=== PATIENT | female | born 1970 | race Caucasian/White ===

== ENCOUNTER → 2018-07-31 | Outpatient (CLI) | payer SELFPAY | LOC: WOUNDCARE 09:18 | PROVIDERS: ATTEND Surgery | DX: T25.332A Burn of third degree of left toe(s) (nail), initial encounter (principal); T25.331A Burn of third degree of right toe(s) (nail), initial encounter; T25.222A Burn of second degree of left foot, initial encounter; E11.621 Type 2 diabetes mellitus with foot ulcer; E11.42 Type 2 diabetes mellitus with diabetic 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; E11.65 Type 2 diabetes mellitus with hyperglycemia | CPT/HCPCS: 16020 ==

== ENCOUNTER → 2018-08-05 | Outpatient (CLI) | payer SELFPAY | LOC: WOUNDCARE 13:45 | PROVIDERS: ATTEND Surgery | DX: T25.332A Burn of third degree of left toe(s) (nail), initial encounter (principal); T25.331A Burn of third degree of right toe(s) (nail), initial encounter; T25.222A Burn of second degree of left foot, initial encounter; E11.621 Type 2 diabetes mellitus with foot ulcer; E11.42 Type 2 diabetes mellitus with diabetic 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; E11.65 Type 2 diabetes mellitus with hyperglycemia | CPT/HCPCS: 16020; 87070; 87075; 87205 ==

== ENCOUNTER → 2018-08-12 | Outpatient (CLI) | payer OTHER ==
[~2018-08-12] MED LIST: ACET-2267 PO; ATOR20TA49 PO; CETI10CA PO; CITA40TA19 PO; CYCL10TA9 PO; DOXY100T2 PO; DOXY20TA5 PO; GABA-486 PO; GABA600T2 PO; INSU100I23 SQ; INSU100I29 SQ; INSU100V5 SQ; LINE600T5 PO; LISI-552 PO; LISI2.5T; LORA2TAB; METO-310 PO; METO-333; METO-387 PO; PAMI30VI8 SQ; RT-ALBUINH IH; SILV20CR14 TP
== END ==
LOC: WOUNDCARE 12:56
PROVIDERS: ATTEND Surgery
DX: T25.332A Burn of third degree of left toe(s) (nail), initial encounter (principal); T25.331A Burn of third degree of right toe(s) (nail), initial encounter; T25.222A Burn of second degree of left foot, initial encounter; E11.621 Type 2 diabetes mellitus with foot ulcer; E11.42 Type 2 diabetes mellitus with diabetic 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; E11.65 Type 2 diabetes mellitus with hyperglycemia
CPT/HCPCS: 16020

== ENCOUNTER 2018-08-17 23:42 | Inpatient (IN) | payer OTHER ==
[~2018-08-17] VITALS: Ht 165.1 cm; Wt 100.4 kg
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
--- OUTSIDE RECORDS SUMMARY | 2018-08-17 23:52 | XMS REPORT ---
Author Author ALVA BENTLEY [facility] [address] Address [address] [place] [address] Care Team Providers Care Director [employer] Name Role Phone ALVA BENTLEY Unavailable PROBLEMS Type Condition ICD9-CM Code WSY31-UT Code Onset Dates Condition Status SNOMED Code Problem Anxiety state, unspecified F41.1 Active 589391039 Problem Migraine without status migrainosus, not intractable, unspecified migraine type G43.909 Active 24447516 Problem Depressive disorder, not elsewhere classified F32.9 Active 63941465 Problem group home current use of insulin Z79.4 Active 371985050 Problem Type 2 diabetes 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 Active 06587139 Problem Mild intermittent asthma without complication J45.20 Active 621843913 Problem Essential hypertension I10 Active 54886175 Problem Mixed hyperlipidemia E78.2 Active 817301903 Problem Hospital discharge follow-up Z09 Active 875508291 Problem Local infection of the skin and subcutaneous tissue, unspecified L08.9 Active 916032125 Problem Unspecified staphylococcus as the cause of diseases classified elsewhere B95.8 Active 39722371 Problem Chronic kidney disease, unspecified CKD stage N18.9 Active 195975833 Problem Lumbar radiculopathy, chronic M54.16 Active 910626400 ALLERGIES No Information ENCOUNTERS Encounter Location Date Diagnosis [facility] [address] [id number] [address] Jul, [facility] [address] [id number] [address] Jul, Type 2 diabetes 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 [facility] [address] [id number], [place] [address] 379[address] Jun, [facility] [address] [id number] [address] 1188 May, [facility] [id number] [place] [address] 48537- 4601 May, [facility] [id number] [place] [address] 00584- 2562 May, [facility] [id number] [place] [address] 25521- 2520 May, Mixed hyperlipidemia E78.2 [facility] [id number] [place] [address] 47324- 0853 May, Type 2 diabetes 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 and Mixed hyperlipidemia E78.2 [facility] [address] [address]- 94[address] May, Type 2 diabetes 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 ; 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 ; Hospital discharge follow-up Z09 ; Dehydration E86.0 ; Chronic kidney disease, unspecified CKD stage N18.9 and Yeast vaginitis B37.3 [facility] [id number] [place] [address] 21549- 6011 Apr, Lumbar radiculopathy M54.16 [facility] [id number] [place] [address] 31601- 5447 Apr, Lumbar radiculopathy, chronic M54.16 ; Type 2 diabetes 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 ; Dysuria R30.0 and Essential hypertension I10 [facility] [id number] [place] [address] 03307- 1595 Apr, Type 2 diabetes 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 [facility] [id number] [place] [address] 78841- 6058 Apr, [facility] [id number] [place] [address] 89264- 4773 Apr, [facility] [id number] [place] [address] 91989- 8708 Mar, [facility] [id number] [place] [address] 63252- 3314 14 Mar, 2018 Anxiety state, unspecified F41.1 [facility] [id number] [place] [address] 13077- 8161 Mar, Local infection of the skin and subcutaneous tissue, unspecified L08.9 ; Unspecified staphylococcus as the cause of diseases classified elsewhere B95.8 ; Type 2 diabetes 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 and group home current use of insulin Z79.4 [facility] [id number] [place] [address] 26949- 5017 Mar, Anxiety state, unspecified F41.1 and Depressive disorder, not elsewhere classified F32.9 [facility] [id number] [place] [address] 38799- 9750 February, Type 2 diabetes 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 ; group home current use of insulin Z79.4 ; Essential hypertension I10 ; Anxiety state, unspecified F41.1 ; Depressive disorder, not elsewhere classified F32.9 and Dysuria R30.0 [facility] [id number] [place] [address] 65299- 2801 Jan, Type 2 diabetes 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 [facility] [id number] [place] [address] 46126- 9390 Jan, Type 2 diabetes 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 [facility] [id number] [place] [address] 08296- 9799 Jan, [facility] [id number] [place] [address] 79042 -8522 Dec, Migraine without status migrainosus, not intractable, unspecified migraine type G43.909 [facility] [id number] [place] [address] 66731- 1949 Dec, Type 2 diabetes 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 ; 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 ; Dog bite, subsequent encounter W54.0XXD and Essential hypertension I10 [facility] [id number] [place] [address] 64135 -7448 Dec, Dog bite, initial encounter W54.0XXA [facility] [id number] [place] [address] 87898- 5052 Dec, [facility] [address] 47144- 6319 Nov, [facility] [address] 56792- 5619 Oct, [facility] [address] 20078 -9821 Oct, Fissure in skin of foot R23.4 [facility] [address] 16944- 9129 Oct, [facility] [address] 78985- 7091 Oct, [facility] [id number] [place] [address] 27460- 4779 Oct, [facility] [address] 56245- 1877 Oct, Type 2 diabetes 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 [facility] [id number] [place] [address] 24789- 9614 Oct, Anxiety state, unspecified F41.1 and Depressive disorder, not elsewhere classified F32.9 [facility] [id number] [place] [address] 26676- 2575 Oct, [facility] [address] 32524- 1638 Oct, [facility] [id number] [place] [address] 91528- 7293 Sep, Essential hypertension I10 [facility] [address] 66390- 6521 14 Sep, 2017 [facility] [id number] [place] [address] 33220- 1530 Sep, Type 2 diabetes 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 and Neuropathic ulcer of foot, unspecified laterality, unspecified ulcer stage L97.509 [facility] [id number] [place] [address] 52804- 9178 Sep, Neuropathic ulcer of foot, unspecified laterality, unspecified ulcer stage L97.509 and Acute vaginitis N76.0 [facility] [id number] [place] [address] 19434- 1830 12 Sep, 2017 Type 2 diabetes 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 ; 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 ; Essential hypertension I10 ; 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 ; Reactive depression F32.9 ; Acute vaginitis N76.0 and Mild intermittent asthma without complication J45.20 [facility] [id number] [place] [address] 74752- 6944 17 Jul, 2017 [facility] [id number] [place] [address] 62724 -3663 Jun, [facility] [id number] [place] [address] 52431- 1629 May, [facility] [id number] [place] [address] 28908 -5588 May, Cellulitis L03.90 [facility] [id number] [place] [address] 46461- 9050 Mar, [facility] [id number] [place] [address] 23823- 1234 14 Jan, 2015 [facility] [id number] [place] [address] 96364- 5732 Jan, [facility] [id number] [place] [address] 04372- 5106 Sep, [facility] [place] [facility] [address] [id number] [place] [address]- 1057 Sep, [facility] [place] [facility] [address] [id number] [place] [address]- 3662 Apr, [facility] [place] [facility] [address] [id number] [place] [address]- 1425 Apr, [facility] [place] [facility] [address] [id number] [place] [address]- 3069 Apr, [facility] [place] [facility] [address] [id number] [place] [address]- 5717 Apr, [facility] [place] [facility] [address] [id number] [place] [address]- 7143 Apr, [facility] [place] [facility] [address] [id number] [place] [address]- 4827 Apr, [facility] [place] [facility] [address] [id number] [place] [address]- 2964 Apr, [facility] [place] [facility] [address] [id number] [place] [address]- 4179 Apr, [facility] [place] [facility] [address] [id number] [place] [address]- 7586 Mar, [facility] [place] [facility] [address] [id number] [place] [address]- 6773 Mar, [facility] [place] [facility] [address] [id number] [place] [address]- 6370 Mar, [facility] [place] [facility] [address] [id number] [place] [address]- 8446 Mar, [facility] [place] [facility] [address] [id number] [place] [address]- 1032 Mar, [facility] [place] [facility] [address] [id number] [place] [address]- 9191 Mar, [facility] [place] [facility] [address] [id number] [place] [address]- 9381 Mar, [facility] [place] [facility] [address] [id number] [place] [address]- 8199 19 Mar, 2014 [facility] [place] [facility] [address] [id number] [place] [address]- 1542 18 Mar, 2014 [facility] [place] [facility] [address] [id number] [place] [address]- 5765 18 Mar, 2014 [facility] [place] [facility] [address] [id number] [place] [address]- 1598 16 Mar, 2014 [facility] [place] [facility] [address] [id number] [place] [address]- 8484 15 Mar, 2014 [facility] [place] [facility] [address] [id number] [place] [address]- 2846 13 Mar, 2014 [facility] [place] [facility] [address] [id number] [place] [address]- 6020 Mar, [facility] [place] [facility] [address] [id number] [place] [address]- 2898 11 Mar, 2014 [facility] [place] [facility] [address] [id number] [place] [address]- 5059 Mar, [facility] [place] [facility] [address] [id number] [place] [address]- 6063 Mar, [facility] [place] [facility] [address] [id number] [place] [address]- 5346 Mar, [facility] [place] [facility] [address] [id number] [place] [address]- 5911 Mar, [facility] [place] [facility] [address] [id number] [place] [address]- 4063 February, [facility] [place] [facility] [address] [id number] [place] [address]- 8463 February, [facility] [place] [facility] [address] [id number] [place] [address]- 1102 Jan, [facility] [place] [facility] [address] [id number] [place] [address]- 3970 24 Jan, 2014 [facility] [address] [id number] [place] [address]- 3466 18 Jan, 2014 [facility] [place] [facility] [address] [id number] [place] [address]- 2504 18 Jan, 2014 [facility] [place] [facility] [address] [id number] [place] [address]- 5650 17 Jan, 2014 [facility] [place] [facility] [address] [id number] [place] [address]- 9782 17 Jan, 2014 [facility] [place] [facility] [address] [id number] [place] [address]- 5315 14 Jan, 2014 [facility] [place] [facility] [address] [id number] [place] [address]- 0422 11 Jan, 2014 [facility] [place] [facility] [address] [id number] [place] [address]- 6116 10 Jan, 2014 [facility] [place] [facility] [address] [id number] [place] [address]- 7841 10 Jan, 2014 [facility] [place] [facility] [address] [id number] [place] [address]- 0860 17 Dec, 2013 [facility] [place] [facility] [address] [id number] [place] [address]- 7883 17 Dec, 2013 [facility] [place] [facility] [address] [id number] [place] [address]- 1746 11 Dec, 2013 [facility] [place] [facility] [address] [id number] [place] [address]- 9726 11 Dec, 2013 [facility] [place] [facility] [address] [id number] [place] [address]- 8806 10 Dec, 2013 [facility] [place] [facility] [address] [id number] [place] [address]- 4226 10 Dec, 2013 [facility] [place] [facility] [address] [id number] [place] [address]- 2294 Dec, [facility] [place] [facility] [address] [id number] [place] [address]- 9316 Dec, [facility] [place] [facility] [address] [id number] [place] [address]- 3891 Dec, [facility] [place] [facility] [address] [id number] [place] [address]- 6420 Dec, [facility] [place] [facility] [address] [id number] [place] [address]- 1820 Oct, [facility] [place] [facility] [address] [id number] [place] [address]- 4596 Oct, [facility] [place] [facility] [address] [id number] [place] [address]- 4405 Jul, [facility] [place] [facility] [address] [id number] [place] [address]- 0232 Jul, [facility] [place] [facility] [address] [id number] [place] [address]- 2641 Jul, [facility] [place] [facility] [address] [id number] [place] [address]- 0922 Jun, [facility] [place] [facility] [address] [id number], [place] [address]- 9785 Jun, [facility] [place] [facility] [address] [id number], [place] [address]- 3779 Jun, [facility] [place] [facility] [address] [id number], [place] [address]- 2117 Jun, [facility] [place] [facility] [address] [id number] [place] [address]- 0007 Apr, [facility] [place] [facility] [address] [id number], [place] [address]- 5850 February, [facility] [place] [facility] [address] [id number], [place] [address]- 5918 Nov, [facility] [place] [facility] [address] [id number], [place] [address]- 5715 14 Nov, 2012 [facility] [address] [id number] [place] [address]- 8796 14 Nov, 2012 [facility] [address] [facility] [id number] [place] 9196 19 Sep, 2012 [facility] [address] [facility] [id number] [place] [address]- 4356 19 Sep, 2012 [facility] [place] [facility] [address] [id number] [place] [address]- 1532 18 Sep, 2012 [facility] [address] [id number] [place] 3699 18 Sep, 2012 [facility] [address] [facility] [id number] [place] [address]- 9194 Sep, [facility] [address] [facility] [id number] [place] [address]- 6905 11 Sep, 2012 [facility] [address] [facility] [id number] [place] [address]- 9459 07 Sep, 2012 [facility] [address] [facility] [id number] [place] [address]- 4019 07 Sep, 2012 [facility] [address] [facility] [id number] [place] [address]- 1743 06 Sep, 2012 [facility] [address] [facility] [id number] [place] [address]- 2210 Sep, [facility] [place] [facility] [address] [id number], [place] [address]- 0927 Aug, [facility] [place] [facility] [address] [id number] [place] [address]- 3238 Aug, [facility] [place] [facility] [address] [facility] [id number] [place] [address]- 3171 Aug, [facility] [place] [facility] [address] [facility] [id number] [place] [address]- 1212 Aug, [facility] [place] [facility] [address] [id number] [place] [address]- 5813 Aug, [facility] [place] [facility] [address] [id number] [place] [address]- 9959 Jul, [facility] [place] [facility] [address] [id number] [place] [address]- 0915 Apr, [facility] [place] [facility] [address] [id number] [place] [address]- 9400 February, [facility] [place] [facility] [address] [id number] [place] [address]- 4373 Jan, [facility] [place] [facility] [address] [id number] [place] [address]- 1843 Jan, [facility] [place] [facility] [address] [id number] [place] [address]- 1770 Dec, [facility] [place] [facility] [address] [id number] [place] [address]- 0419 Dec, [facility] [place] [facility] [address] [id number] [place] [address]- 0051 Oct, [facility] [place] [facility] [address] [id number] [place] [address]- 7909 Oct, [facility] [place] [facility] [address] [id number] [place] [address]- 2057 February, [facility] [place] [facility] [address] [id number] [place] [address]- 5694 Sep, [facility] [place] [facility] [address] [id number] [place] [address]- 8758 Jul, [facility] [place] [facility] [address] [id number] [place] [address]- 7711 Jul, [facility] [place] [facility] [address] [id number] [place] [address]- 5469 Jul, [facility] [place] [facility] [address] [id number] [place] [address]- 9099 17 Jun, 2010 [facility] [address] [facility] [id number] [place] [address]- 2546 15 Sep, 2009 [facility] [address] [facility] [id number], [place] [address]- 2546 Sep, [facility] [address] [facility] [id number], [place] [address]- 2546 Sep, [facility] [address] [facility] [id number], [place] [address]- 2546 Jun, [facility] [address] [facility] [id number], [place] [address]- 2546 Dec, IMMUNIZATIONS No Known Immunizations SOCIAL HISTORY Never Assessed REASON FOR VISIT medication question PLAN OF CARE VITAL SIGNS MEDICATIONS Medication Instructions Dosage Frequency Start Date End Date Duration Status Bactrim DS 800-160 MG Orally Twice a day 1 tablet 12h 04 Jul, 2018 14 Jul 10 day(s) Active RESULTS No Results PROCEDURES No Known procedures INSTRUCTIONS MEDICATIONS ADMINISTERED No Known Medications MEDICAL (GENERAL) HISTORY Type Description Date Medical History diabetes type 1 Medical History hypertension Medical History asthma Medical History depression Medical History Diabetic Macular Edema Surgical History 1985, 1988, 1991, 1994 Hospitalization History multiple
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
--- OUTSIDE RECORDS SUMMARY | 2018-08-17 23:52 | XMS REPORT ---
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 Name Role Phone ALVA BENTLEY Unavailable PROBLEMS Type Condition ICD9-CM Code [id number] Code Onset Dates Condition Status SNOMED Code Problem Anxiety state, unspecified F41.1 Active 479701499 Problem Migraine without status migrainosus, not intractable, unspecified migraine type G43.909 Active 92199668 Problem Depressive disorder, not elsewhere classified F32.9 Active 56564579 Problem FCI current use of insulin Z79.4 Active 088389930 Problem Type 2 diabetes 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 Active 18056488 Problem Mild intermittent asthma without complication J45.20 Active 050477323 Problem Essential hypertension I10 Active 31242829 Problem Mixed hyperlipidemia E78.2 Active 545828060 Problem Hospital discharge follow-up Z09 Active 556613129 Problem Local infection of the skin and subcutaneous tissue, unspecified L08.9 Active 228196415 Problem Unspecified staphylococcus as the cause of diseases classified elsewhere B95.8 Active 18369418 Problem Chronic kidney disease, unspecified CKD stage N18.9 Active 334469199 Problem Lumbar radiculopathy, chronic M54.16 Active 161337477 ALLERGIES No Information ENCOUNTERS Encounter Location Date Diagnosis [facility] [place] [address] [id number] [address] Jul, [facility] [place] [address] [id number], [place] [address] Jul, Type 2 diabetes 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 [facility] [place] [address] [id number], [place] [address] Jun, [facility] [place] [address] [id number], [place] [address]69 May, [facility] [place] [id number] [place] [address] 64133- 4041 May, [facility] [place] [id number] [place] [address] 40914- 2930 May, [facility] [place] [id number] [place] [address] 94371- 0590 May, Mixed hyperlipidemia E78.2 [place] [id number] [place] [address] 55005- 7935 May, Type 2 diabetes 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 and Mixed hyperlipidemia E78.2 [place] [address] [address]- [address] May, Type 2 diabetes 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 ; 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 ; Hospital discharge follow-up Z09 ; Dehydration E86.0 ; Chronic kidney disease, unspecified CKD stage N18.9 and Yeast vaginitis B37.3 [place] [id number] [place] [address] 91535- 9786 Apr, Lumbar radiculopathy M54.16 [place] [id number] [place] [address] 67292- 5851 Apr, Lumbar radiculopathy, chronic M54.16 ; Type 2 diabetes 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 ; Dysuria R30.0 and Essential hypertension I10 [place] [id number] [place] [address] 44462- 0843 Apr, Type 2 diabetes 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 [place] [id number] [place] [address] 42663- 8657 Apr, [place] [id number] [place] [address] 20253- 0352 Apr, [place] [id number] [place] [address] 50345- 5094 Mar, [place] [id number] [place] [address] 62778- 6647 14 Mar, 2018 Anxiety state, unspecified F41.1 [place] [id number] [place] [address] 16803- 4608 Mar, Local infection of the skin and subcutaneous tissue, unspecified L08.9 ; Unspecified staphylococcus as the cause of diseases classified elsewhere B95.8 ; Type 2 diabetes 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 and FCI current use of insulin Z79.4 [place] [id number] [place] [address] 75155- 1400 Mar, Anxiety state, unspecified F41.1 and Depressive disorder, not elsewhere classified F32.9 [place] [id number] [place] [address] 37967- 1582 February, Type 2 diabetes 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 ; FCI current use of insulin Z79.4 ; Essential hypertension I10 ; Anxiety state, unspecified F41.1 ; Depressive disorder, not elsewhere classified F32.9 and Dysuria R30.0 [place] [id number] [place] [address] 62699- 4013 Jan, Type 2 diabetes 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 [place] [id number] [place] [address] 98314- 8576 Jan, Type 2 diabetes 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 [place] [id number] [place] [address] 79213- 8701 Jan, [facility] [id number] [place] [address] 15408 -6043 Dec, Migraine without status migrainosus, not intractable, unspecified migraine type G43.909 [place] [id number] [place] [address] 09163- 4643 Dec, Type 2 diabetes 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 ; 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 ; Dog bite, subsequent encounter W54.0XXD and Essential hypertension I10 [facility] [id number] [place] [address] 51902 -0033 Dec, Dog bite, initial encounter W54.0XXA [facility] [place] [id number] [place] [address] 41935- 6194 Dec, [facility] [place] [address] 55046- 3532 Nov, [facility] [place] [address] 01327- 5268 Oct, [facility] [address] 35111 -6718 Oct, Fissure in skin of foot R23.4 [facility] [place] [address] 69813- 3012 Oct, [facility] [place] [address] 24787- 9498 Oct, [facility] [place] [id number] [place] [address] 83136- 9952 Oct, [facility] [place] [address] 51841- 5199 Oct, Type 2 diabetes 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 [place] [id number] [place] [address] 07636- 5577 Oct, Anxiety state, unspecified F41.1 and Depressive disorder, not elsewhere classified F32.9 [facility] [place] [id number] [place] [address] 02067- 9689 Oct, [facility] [place] [address] 25154- 4191 Oct, [facility] [place] [id number] [place] [address] 15436- 7319 Sep, Essential hypertension I10 [facility] [place] [address] 83476- 8876 14 Sep, 2017 [facility] [place] [id number] [place] [address] 03503- 6346 Sep, Type 2 diabetes 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 and Neuropathic ulcer of foot, unspecified laterality, unspecified ulcer stage L97.509 [facility] [place] [id number] [place] [address] 20453- 2137 Sep, Neuropathic ulcer of foot, unspecified laterality, unspecified ulcer stage L97.509 and Acute vaginitis N76.0 [place] [id number] [place] [address] 82742- 0925 12 Sep, 2017 Type 2 diabetes 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 ; 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 ; Essential hypertension I10 ; 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 ; Reactive depression F32.9 ; Acute vaginitis N76.0 and Mild intermittent asthma without complication J45.20 [place] [id number] [place] [address] 64308- 1518 17 Jul, 2017 [facility] [id number] [place] [address] 18669 -7707 Jun, [place] [id number] [place] [address] 51608- 0920 May, [facility] [id number] [place] [address] 12395 -9859 May, Cellulitis L03.90 [facility] [place] [id number] [place] [address] 92036- 5891 Mar, [place] [id number] [place] [address] 02571- 9208 14 Jan, 2015 [facility] [place] [id number] [place] [address] 53525- 3286 Jan, [place] [id number] [place] [address] 57228- 5336 Sep, [facility] [place] [facility] [address] [id number] [place] [address]- 4330 Sep, [facility] [place] [facility] [address] [id number] [place] [address]- 0521 Apr, [facility] [place] [facility] [address] [id number] [place] [address]- 4228 Apr, [facility] [place] [facility] [address] [id number] [place] [address]- 4898 Apr, [facility] [place] [facility] [address] [id number] [place] [address]- 9420 Apr, [facility] [place] [facility] [address] [id number] [place] [address]- 5414 Apr, [facility] [place] [facility] [address] [id number] [place] [address]- 1762 Apr, [facility] [place] [facility] [address] [id number] [place] [address]- 9977 Apr, [facility] [place] [facility] [address] [id number] [place] [address]- 7427 Apr, [facility] [place] [facility] [address] [id number] [place] [address]- 2420 Mar, [facility] [place] [facility] [address] [id number] [place] [address]- 3521 Mar, [facility] [place] [facility] [address] [id number] [place] [address]- 6868 Mar, [facility] [place] [facility] [address] [id number] [place] [address]- 7289 Mar, [facility] [place] [facility] [address] [id number] [place] [address]- 5426 Mar, [facility] [place] [facility] [address] [id number] [place] [address]- 8223 Mar, [facility] [place] [facility] [address] [id number] [place] [address]- 1787 Mar, [facility] [place] [facility] [address] [id number] [place] [address]- 7791 19 Mar, 2014 [facility] [place] [facility] [address] [id number] [place] [address]- 9458 18 Mar, 2014 [facility] [place] [facility] [address] [id number] [place] [address]- 8271 18 Mar, 2014 [facility] [place] [facility] [address] [id number] [place] [address]- 6707 16 Mar, 2014 [facility] [place] [facility] [address] [id number] [place] [address]- 8910 15 Mar, 2014 [facility] [place] [facility] [address] [id number] [place] [address]- 7162 13 Mar, 2014 [facility] [place] [facility] [address] [id number] [place] [address]- 9252 Mar, [facility] [place] [facility] [address] [id number] [place] [address]- 2482 11 Mar, 2014 [facility] [place] [facility] [address] [id number] [place] [address]- 9338 Mar, [facility] [place] [facility] [address] [id number] [place] [address]- 1301 Mar, [facility] [place] [facility] [address] [id number] [place] [address]- 7215 Mar, [facility] [place] [facility] [address] [id number] [place] [address]- 8858 Mar, [facility] [place] [facility] [address] [id number] [place] [address]- 1016 February, [facility] [place] [facility] [address] [id number] [place] [address]- 3496 February, [facility] [place] [facility] [address] [id number] [place] [address]- 6689 Jan, [facility] [place] [facility] [address] [id number] [place] [address]- 1530 24 Jan, 2014 [facility] [address] [id number] [place] [address]- 0510 18 Jan, 2014 [facility] [place] [facility] [address] [id number] [place] [address]- 7921 18 Jan, 2014 [facility] [place] [facility] [address] [id number] [place] [address]- 3352 17 Jan, 2014 [facility] [place] [facility] [address] [id number] [place] [address]- 4671 17 Jan, 2014 [facility] [place] [facility] [address] [id number] [place] [address]- 7384 14 Jan, 2014 [facility] [place] [facility] [address] [id number] [place] [address]- 0381 11 Jan, 2014 [facility] [place] [facility] [address] [id number] [place] [address]- 9325 10 Jan, 2014 [facility] [place] [facility] [address] [id number] [place] [address]- 3139 10 Jan, 2014 [facility] [place] [facility] [address] [id number] [place] [address]- 9589 17 Dec, 2013 [facility] [place] [facility] [address] [id number] [place] [address]- 3304 17 Dec, 2013 [facility] [place] [facility] [address] [id number] [place] [address]- 0460 11 Dec, 2013 [facility] [place] [facility] [address] [id number] [place] [address]- 1155 11 Dec, 2013 [facility] [place] [facility] [address] [id number] [place] [address]- 3155 10 Dec, 2013 [facility] [place] [facility] [address] [id number] [place] [address]- 8661 10 Dec, 2013 [facility] [place] [facility] [address] [id number] [place] [address]- 3052 Dec, [facility] [place] [facility] [address] [id number] [place] [address]- 2325 Dec, [facility] [place] [facility] [address] [id number] [place] [address]- 0345 Dec, [facility] [place] [facility] [address] [id number] [place] [address]- 1246 Dec, [facility] [place] [facility] [address] [id number] [place] [address]- 3691 Oct, [facility] [place] [facility] [address] [id number] [place] [address]- 2361 Oct, [facility] [place] [facility] [address] [id number] [place] [address]- 3294 Jul, [facility] [place] [facility] [address] [id number] [place] [address]- 1662 Jul, [facility] [place] [facility] [address] [id number] [place] [address]- 8242 Jul, [facility] [place] [facility] [address] [id number] [place] [address]- 8464 Jun, [facility] [place] [facility] [address] [id number], [place] [address]- 1695 Jun, [facility] [place] [facility] [address] [id number], [place] [address]- 5946 Jun, [facility] [place] [facility] [address] [id number], [place] [address]- 4481 Jun, [facility] [place] [facility] [address] [id number] [place] [address]- 3816 Apr, [facility] [place] [facility] [address] [id number], [place] [address]- 7636 February, [facility] [place] [facility] [address] [id number], [place] [address]- 7426 Nov, [facility] [place] [facility] [address] [id number], [place] [address]- 5331 14 Nov, 2012 [facility] [address] [id number] [place] [address]- 4896 14 Nov, 2012 [facility] [address] [facility] [id number] [place] 9636 19 Sep, 2012 [facility] [address] [facility] [id number] [place] [address]- 6346 19 Sep, 2012 [facility] [place] [facility] [address] [id number] [place] [address]- 1012 18 Sep, 2012 [facility] [address] [id number] [place] 9629 18 Sep, 2012 [facility] [address] [facility] [id number] [place] [address]- 0727 Sep, [facility] [address] [facility] [id number] [place] [address]- 5058 11 Sep, 2012 [facility] [address] [facility] [id number] [place] [address]- 8174 07 Sep, 2012 [facility] [address] [facility] [id number] [place] [address]- 1466 07 Sep, 2012 [facility] [address] [facility] [id number] [place] [address]- 4068 06 Sep, 2012 [facility] [address] [facility] [id number] [place] [address]- 9982 Sep, [facility] [place] [facility] [address] [id number], [place] [address]- 7520 Aug, [facility] [place] [facility] [address] [id number] [place] [address]- 1709 Aug, [facility] [place] [facility] [address] [facility] [id number] [place] [address]- 7193 Aug, [facility] [place] [facility] [address] [facility] [id number] [place] [address]- 8878 Aug, [facility] [place] [facility] [address] [id number] [place] [address]- 4303 Aug, [facility] [place] [facility] [address] [id number] [place] [address]- 5797 Jul, [facility] [place] [facility] [address] [id number] [place] [address]- 2102 Apr, [facility] [place] [facility] [address] [id number] [place] [address]- 5158 February, [facility] [place] [facility] [address] [id number] [place] [address]- 4869 Jan, [facility] [place] [facility] [address] [id number] [place] [address]- 1989 Jan, [facility] [place] [facility] [address] [id number] [place] [address]- 0957 Dec, [facility] [place] [facility] [address] [id number] [place] [address]- 5070 Dec, [facility] [place] [facility] [address] [id number] [place] [address]- 9507 Oct, [facility] [place] [facility] [address] [id number] [place] [address]- 5506 Oct, [facility] [place] [facility] [address] [id number] [place] [address]- 0096 February, [facility] [place] [facility] [address] [id number] [place] [address]- 9282 Sep, [facility] [place] [facility] [address] [id number] [place] [address]- 3105 Jul, [facility] [place] [facility] [address] [id number] [place] [address]- 6206 Jul, [facility] [place] [facility] [address] [id number] [place] [address]- 3129 Jul, [facility] [place] [facility] [address] [id number] [place] [address]- 2477 17 Jun, 2010 [facility] [place] [address] [facility] [id number] [place] [address]- 2546 15 Sep, 2009 [facility] [place] [address] [facility] [id number], [place] [address]- 2546 Sep, [facility] [place] [address] [facility] [id number], [place] [address]- 2546 Sep, [facility] [place] [address] [facility] [id number], [place] [address]- 2546 Jun, [facility] [place] [address] [facility] [id number], [place] [address]- 2546 Dec, IMMUNIZATIONS No Known Immunizations SOCIAL HISTORY Never Assessed REASON FOR VISIT Requests return call PLAN OF CARE VITAL SIGNS MEDICATIONS Medication Instructions Dosage Frequency Start Date End Date Duration Status Flexeril 10 mg Orally Three times a day 1 tablet as needed 8h Jul, 10 days Active Gabapentin 600 MG Orally 3 times a day 2 capsule 8h Dec, 30 days Active RESULTS No Results PROCEDURES No Known procedures INSTRUCTIONS MEDICATIONS ADMINISTERED No Known Medications MEDICAL (GENERAL) HISTORY Type Description Date Medical History diabetes type 1 Medical History hypertension Medical History asthma Medical History depression Medical History Diabetic Macular Edema Surgical History 1985, 1988, 1991, 1994 Hospitalization History multiple
--- OUTSIDE RECORDS SUMMARY | 2018-08-17 23:53 | XMS REPORT ---
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 Name Role Phone ALVA BENTLEY Unavailable PROBLEMS Type Condition ICD9-CM Code XHT15-OP Code Onset Dates Condition Status SNOMED Code Problem Anxiety state, unspecified F41.1 Active 529265830 Problem Migraine without status migrainosus, not intractable, unspecified migraine type G43.909 Active 89036501 Problem Depressive disorder, not elsewhere classified F32.9 Active 38302352 Problem FPC current use of insulin Z79.4 Active 258439270 Problem Type 2 diabetes 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 Active 86838981 Problem Mild intermittent asthma without complication J45.20 Active 852482378 Problem Essential hypertension I10 Active 41956331 Problem Mixed hyperlipidemia E78.2 Active 303750472 Problem Hospital discharge follow-up Z09 Active 654237838 Problem Local infection of the skin and subcutaneous tissue, unspecified L08.9 Active 982023643 Problem Unspecified staphylococcus as the cause of diseases classified elsewhere B95.8 Active 71039386 Problem Chronic kidney disease, unspecified CKD stage N18.9 Active 668990652 Problem Lumbar radiculopathy, chronic M54.16 Active 578791961 ALLERGIES No Information ENCOUNTERS Encounter Location Date Diagnosis [facility] [id number] [address] Jul, [facility] [address] [id number], [place] [address] Jun, [facility] [address] [address] May, [facility] [address] [id number] [address] May, [facility] [id number] [address] May, [place] [id number] [place] [address] 13333- 6259 May, Mixed hyperlipidemia E78.2 [place] [id number] [place] [address] 77514- 2190 May, Type 2 diabetes 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 and Mixed hyperlipidemia E78.2 [place] [id number] [place] [address] 00021- 1021 May, Type 2 diabetes 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 ; FPC current use of insulin Z79.4 ; Hospital discharge follow-up Z09 ; Dehydration E86.0 ; Chronic kidney disease, unspecified CKD stage N18.9 and Yeast vaginitis B37.3 [place] [id number] [place] [address] 84788- 5142 Apr, Lumbar radiculopathy M54.16 [place] [id number] [place] [address] 90323- 3153 Apr, Lumbar radiculopathy, chronic M54.16 ; Type 2 diabetes 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 ; Dysuria R30.0 and Essential hypertension I10 [place] [id number] [place] [address] 25980- 4321 Apr, Type 2 diabetes 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 [place] [id number] [place] [address] 43860- 0770 Apr, [place] [id number] [place] [address] 99980- 6693 Apr, [place] [id number] [place] [address] 43909- 3429 Mar, [place] [id number] [place] [address] 56441- 6461 Mar, Anxiety state, unspecified F41.1 [place] [id number] [place] [address] 44972- 2946 Mar, Local infection of the skin and subcutaneous tissue, unspecified L08.9 ; Unspecified staphylococcus as the cause of diseases classified elsewhere B95.8 ; Type 2 diabetes 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 and FPC current use of insulin Z79.4 [place] [id number] [place] [address] 08299- 5617 Mar, Anxiety state, unspecified F41.1 and Depressive disorder, not elsewhere classified F32.9 [place] [id number] [place] [address] 03615- 8197 February, Type 2 diabetes 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 ; FPC current use of insulin Z79.4 ; Essential hypertension I10 ; Anxiety state, unspecified F41.1 ; Depressive disorder, not elsewhere classified F32.9 and Dysuria R30.0 [place] [id number] [place] [address] 87442- 6265 Jan, Type 2 diabetes 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 [place] [id number] [place] [address] 24985- 9282 Jan, Type 2 diabetes 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 [place] [id number] [place] [address] 50168- 1570 Jan, [facility] [id number] [place] [address] 88870 -0408 Dec, Migraine without status migrainosus, not intractable, unspecified migraine type G43.909 [place] [id number] [place] [address] 61160- 0006 Dec, Type 2 diabetes 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 ; 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 [id number] [place] [address] 00527- 3470 Dec, [facility] [id number] [place] [address] 92941- 2120 Nov, [facility] [id number] [place] [address] 56892- 0544 Oct, [facility] [id number] [place] [address] 49126 -3005 Oct, Fissure in skin of foot R23.4 [facility] [id number] [place] [address] 41137- 5587 Oct, [facility] [id number] [place] [address] 75016- 6105 Oct, [facility] [id number] [place] [address] 78982- 4094 Oct, [facility] [id number] [place] [address] 24555- 6454 Oct, Type 2 diabetes 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 [facility] [id number] [place] [address] 01809- 3066 Oct, Anxiety state, unspecified F41.1 and Depressive disorder, not elsewhere classified F32.9 [facility] [id number] [place] [address] 11396- 0293 Oct, [facility] [id number] [place] [address] 20472- 3052 Oct, [facility] [id number] [place] [address] 70481- 9126 Sep, Essential hypertension I10 [facility] [id number] [place] [address] 40846- 7933 14 Sep, 2017 [facility] [id number] [place] [address] 36153- 6679 Sep, Type 2 diabetes 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 and Neuropathic ulcer of foot, unspecified laterality, unspecified ulcer stage L97.509 [facility] [address] [address]25- 9913 Sep, Neuropathic ulcer of foot, unspecified laterality, unspecified ulcer stage L97.509 and Acute vaginitis N76.0 [facility] [address] 13932- 9704 Sep, Type 2 diabetes 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 ; FPC current use of insulin Z79.4 ; Essential hypertension I10 ; 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 ; Reactive depression F32.9 ; Acute vaginitis N76.0 and Mild intermittent asthma without complication J45.20 [facility] [address] 07666- 0057 17 Jul, 2017 [facility] [address] 51952 -4685 Jun, [facility] [address] 07160- 4328 May, [facility] [address] 12945 -4869 May, Cellulitis L03.90 [facility] [id number] [place] [address] 43105- 8765 Mar, [facility] [id number] [place] [address] 93451- 8175 Jan, [facility] [id number] [place] [address] 50577- 7247 Jan, [facility] [address] 276701- 4156 Sep, [facility] [id number] [place] [address] [id number]- 0847 Sep, [facility] [address] [place] [address]- 0776 Apr, 2013 [facility] [place] [facility] [address] [id number] [place] [address]- 5983 Apr, [facility] [place] [facility] [address] [id number] [place] [address]- 9195 Apr, [facility] [place] [facility] [address] [id number] [place] [address]- 1595 Apr, 2013 [facility] [place] [facility] [address] [id number] [place] [address]- 6880 Apr, [facility] [place] [facility] [address] [id number] [place] [address]- 3219 Apr, [facility] [place] [facility] [address] [id number] [place] [address]- 0596 Apr, [facility] [place] [facility] [address] [id number] [place] [address]- 0562 Apr, [facility] [place] [facility] [address] [id number] [place] [address]- 5552 Mar, [facility] [place] [facility] [address] [id number] [place] [address]- 2136 Mar, [facility] [place] [facility] [address] [id number] [place] [address]- 5972 Mar, [facility] [place] [facility] [address] [id number] [place] [address]- 5443 Mar, [facility] [place] [facility] [address] [id number] [place] [address]- 6787 Mar, [facility] [place] [facility] [address] [id number] [place] [address]- 1960 Mar, [facility] [place] [facility] [address] [id number] [place] [address]- 7022 Mar, [facility] [place] [facility] [address] [id number] [place] [address]- 4264 Mar, [facility] [place] [facility] [address] [id number] [place] [address]- 9194 18 Mar, 2014 [facility] [place] [facility] [address] [id number] [place] [address]- 8669 18 Mar, 2014 [facility] [place] [facility] [address] [id number] [place] [address]- 2633 16 Mar, 2014 [facility] [place] [facility] [address] [id number] [place] [address]- 3743 15 Mar, 2014 [facility] [place] [facility] [address] [id number] [place] [address]- 5714 13 Mar, 2014 [facility] [place] [facility] [address] [id number] [place] [address]- 6314 13 Mar, 2014 [facility] [place] [facility] [address] [id number] [place] [address]- 3070 Mar, [facility] [place] [facility] [address] [id number] [place] [address]- 7141 Mar, [facility] [place] [facility] [address] [id number] [place] [address]- 6919 Mar, [facility] [place] [facility] [address] [id number] [place] [address]- 0441 Mar, [facility] [place] [facility] [address] [id number] [place] [address]- 2722 Mar, [facility] [place] [facility] [address] [id number] [place] [address]- 0780 February, [facility] [place] [facility] [address] [id number] [place] [address]- 5545 February, [facility] [place] [facility] [address] [id number] [place] [address]- 2513 Jan, [facility] [place] [facility] [address] [id number] [place] [address]- 4400 Jan, [facility] [place] [facility] [address] [id number] [place] [address]- 9036 18 Jan, 2014 [facility] [place] [facility] [address] [id number] [place] [address]- 8330 18 Jan, 2014 [facility] [place] [facility] [address] [id number] [place] [address]- 8100 17 Jan, 2014 [facility] [place] [facility] [address] [id number] [place] [address]- 3993 17 Jan, 2014 [facility] [place] [facility] [address] [id number] [place] [address]- 9736 14 Jan, 2014 [facility] [place] [facility] [address] [id number] [place] [address]- 1927 11 Jan, 2014 [facility] [place] [facility] [address] [id number] [place] [address]- 8517 10 Jan, 2014 [facility] [place] [facility] [address] [id number] [place] [address]- 7360 Jan, [facility] [place] [facility] [address] [id number] [place] [address]- 4099 17 Dec, 2013 [facility] [place] [facility] [address] [id number] [place] [address]- 4187 17 Dec, 2013 [facility] [place] [facility] [address] [id number] [place] [address]- 2431 Dec, [facility] [place] [facility] [address] [id number] [place] [address]- 5028 11 Dec, 2013 [facility] [place] [facility] [address] [id number] [place] [address]- 1768 10 Dec, 2013 [facility] [place] [facility] [address] [id number] [place] [address]- 5399 10 Dec, 2013 [facility] [place] [facility] [address] [id number] [place] [address]- 4849 07 Dec, 2013 [facility] [place] [facility] [address] [id number] [place] [address]- 5142 07 Dec, 2013 [facility] [place] [facility] [address] [id number] [place] [address]- 4914 Dec, [facility] [address] [id number] [place] [address]- 3295 Dec, [facility] [address] [id number] [place] [address]- 1377 Oct, [facility] [address] [id number] [place] [address]- 4786 Oct, [facility] [address] [id number] [place] [address]- 5866 Jul, [facility] [address] [id number] [place] [address]- 1575 Jul, [facility] [address] [id number] [place] 2819 Jul, [facility] [address] [id number] [place] [address]- 0105 Jun, [facility] [address] [id number] [place] [address]- 6288 Jun, [facility] [address] [id number] [place] [address]- 6507 Jun, [facility] [address] [id number] [place] [address]- 2295 Jun, [facility] [place] [facility] [address] [id number] [place] [address]- 9952 Apr, [facility] [address] [id number] [place] [address]- 1199 February, [facility] [place] [facility] [address] [id number] [place] [address]- 5504 Nov, [facility] [place] [facility] [address] [id number] [place] [address]- 3266 Nov, [facility] [place] [facility] [address] [id number] [place] [address]- 8154 Nov, [facility] [place] [facility] [address] [id number] [place] [address]- 7751 Sep, [facility] [place] [facility] [address] [id number] [place] [address]- 6775 Sep, [facility] [place] [facility] [address] [id number] [place] [address]- 6475 Sep, [facility] [place] [facility] [address] [id number] [place] [address]- 0147 Sep, [facility] [place] [facility] [address] [id number] [place] [address]- 3618 Sep, [facility] [place] [facility] [address] [id number] [place] [address]- 3521 Sep, [facility] [place] [facility] [address] [facility] [id number] [place] [address]- 0709 Sep, [facility] [place] [facility] [address] [id number] [place] [address]- 3430 Sep, [facility] [place] [facility] [address] [id number] [place] [address]- 3275 Sep, [facility] [place] [facility] [address] [facility] [id number] [place] [address]- 4930 Sep, [facility] [place] [facility] [address] [id number] [place] [address]- 7033 Aug, [facility] [place] [facility] [address] [id number] [address]- 2663 Aug, [facility] [place] [facility] [address] [id number] [place] [address]- 5261 Aug, [facility] [place] [facility] [address] [id number] [place] [address]- 3776 Aug, [facility] [place] [facility] [address] [id number] [place] [address]- 3111 Aug, [facility] [place] [facility] [address] [id number] [place] [address]- 3262 Jul, [facility] [address] [id number] [place] [address]- 7093 Apr, [facility] [place] [facility] [address] [id number] [place] [address]- 9466 February, [facility] [place] [facility] [address] [id number] [place] [address]- 1830 Jan, [facility] [place] [facility] [address] [id number] [place] [address]- 7105 Jan, [facility] [place] [facility] [address] [id number] [place] [address]- 2855 Dec, [facility] [place] [facility] [address] [id number] [place] [address] 2546 Dec, [facility] [address] [id number] [place] [address]- 9691 Oct, [facility] [place] [facility] [address] [id number] [place] [address]- 6060 Oct, [facility] [place] [facility] [address] [id number] [place] [address]- 2034 February, [facility] [place] [facility] [address] [facility] [id number] [place] [address]- 3574 Sep, [facility] [place] [facility] [address] [id number] [place] [address]- 9688 Jul, [facility] [place] [facility] [address] [id number] [place] [address]- 4512 Jul, [facility] [place] [facility] [address] [id number] [place] [address]- 6115 Jul, [facility] [place] [facility] [address] [id number] [place] [address]- 8876 17 Jun, 2010 [facility] [place] [facility] [address] [facility] [id number] [place] [address]- 1898 15 Sep, 2009 [facility] [place] [facility] [address] [facility] [id number] [place] [address]- 4706 Sep, [facility] [address] [facility] [id number] [address]- 3606 Sep, [facility] [address] [facility] [id number] [address]- 4166 Jun, [facility] [address] [facility] [id number] [address]- 7882 Dec, IMMUNIZATIONS No Known Immunizations SOCIAL HISTORY Never Assessed REASON FOR VISIT no-show for DM ed PLAN OF CARE VITAL SIGNS [...]
--- OUTSIDE RECORDS SUMMARY | 2018-08-17 23:53 | XMS REPORT ---
Author Author ALVA BENTLEY [facility] Address [address] [place] [address] Care Team Providers Care Felled Seam Operator Name Role Phone ALVA BENTLEY Unavailable PROBLEMS Type Condition ICD9-CM Code AHQ28-CE Code Onset Dates Condition Status SNOMED Code Problem Anxiety state, unspecified F41.1 Active 387950024 Problem Migraine without status migrainosus, not intractable, unspecified migraine type G43.909 Active 55799889 Problem Depressive disorder, not elsewhere classified F32.9 Active 82202037 Problem shelter current use of insulin Z79.4 Active 734257032 Problem Type 2 diabetes 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 Active 89254085 Problem Mild intermittent asthma without complication J45.20 Active 134751017 Problem Essential hypertension I10 Active 10761561 Problem Mixed hyperlipidemia E78.2 Active 427989571 Problem Hospital discharge follow-up Z09 Active 255573830 Problem Local infection of the skin and subcutaneous tissue, unspecified L08.9 Active 331982553 Problem Unspecified staphylococcus as the cause of diseases classified elsewhere B95.8 Active 09232394 Problem Chronic kidney disease, unspecified CKD stage N18.9 Active 005772684 Problem Lumbar radiculopathy, chronic M54.16 Active 819287887 ALLERGIES No Information ENCOUNTERS Encounter Location Date Diagnosis [facility] [id number] [address] Jul, [facility] [id number] [address] Jun, [facility] [address], [place] [address] May, [facility] [id number] [address] May, [facility] [address] [id number], [place] [address] May, [facility] [id number] [place] [address] 11569- 3910 May, Mixed hyperlipidemia E78.2 [facility] [id number] [place] [address] 50389- 5857 May, Type 2 diabetes 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 and Mixed hyperlipidemia E78.2 [facility] [id number] [place] [address] 78688- 0169 May, Type 2 diabetes 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 ; shelter current use of insulin Z79.4 ; Hospital discharge follow-up Z09 ; Dehydration E86.0 ; Chronic kidney disease, unspecified CKD stage N18.9 and Yeast vaginitis B37.3 [facility] [id number] [place] [address] 13944- 3590 Apr, Lumbar radiculopathy M54.16 [facility] [id number] [place] [address] 47983- 6886 Apr, Lumbar radiculopathy, chronic M54.16 ; Type 2 diabetes 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 ; Dysuria R30.0 and Essential hypertension I10 [facility] [address] [place] [address] 67981- 2982 Apr, Type 2 diabetes 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 [facility] [address] [place] [address] 99995- 0266 Apr, [facility] [address] [place] [address] 32667- 6623 Apr, [facility] [id number] [place] [address] 04988- 4285 Mar, [facility] [address] [place] [address] 63444- 4127 Mar, Anxiety state, unspecified F41.1 [facility] [id number] [place] [address] 08034- 8109 Mar, Local infection of the skin and subcutaneous tissue, unspecified L08.9 ; Unspecified staphylococcus as the cause of diseases classified elsewhere B95.8 ; Type 2 diabetes 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 and shelter current use of insulin Z79.4 [facility] [id number] [place] [address] 11601- 0931 Mar, Anxiety state, unspecified F41.1 and Depressive disorder, not elsewhere classified F32.9 [facility] [id number] [place] [address] 69952- 7343 February, Type 2 diabetes 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 ; shelter current use of insulin Z79.4 ; Essential hypertension I10 ; Anxiety state, unspecified F41.1 ; Depressive disorder, not elsewhere classified F32.9 and Dysuria R30.0 [facility] [id number] [place] [address] 00973- 6718 Jan, Type 2 diabetes 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 [facility] [id number] [place] [address] 05542- 3879 Jan, Type 2 diabetes 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 [facility] [id number] [place] [address] 80455- 2797 Jan, [facility] [id number] [place] [address] 76372 -3975 Dec, Migraine without status migrainosus, not intractable, unspecified migraine type G43.909 [facility] [id number] [place] [address] 07476- 7886 Dec, Type 2 diabetes 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 ; 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 ; Dog bite, subsequent encounter W54.0XXD and Essential hypertension I10 [facility] [id number] [place] [address] 17353 -0789 Dec, Dog bite, initial encounter W54.0XXA [facility] [id number] [place] [address] 82370- 9762 Dec, [facility] [id number] [place] [address] 31500- 4419 Nov, [facility] [id number] [place] [address] 67675- 0552 Oct, [facility] [id number] [place] [address] 64226 -0029 Oct, Fissure in skin of foot R23.4 [facility] [id number] [place] [address] 70137- 0364 Oct, [facility] [id number] [place] [address] 54898- 3275 Oct, [facility] [id number] [place] [address] 71203- 4731 Oct, [facility] [id number] [place] [address] 67896- 8310 Oct, Type 2 diabetes 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 [facility] [id number] [place] [address] 38345- 5858 Oct, Anxiety state, unspecified F41.1 and Depressive disorder, not elsewhere classified F32.9 [facility] [id number] [place] [address] 61839- 4247 Oct, [facility] [id number] [place] [address] 65963- 1298 Oct, [facility] [id number] [place] [address] 99530- 0564 Sep, Essential hypertension I10 [facility] [id number] [place] [address] 82323- 6761 14 Sep, 2017 [facility] [id number] [place] [address] 90421- 3358 Sep, Type 2 diabetes 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 and Neuropathic ulcer of foot, unspecified laterality, unspecified ulcer stage L97.509 [facility] [address] 02093- 7667 Sep, Neuropathic ulcer of foot, unspecified laterality, unspecified ulcer stage L97.509 and Acute vaginitis N76.0 [facility] [address] 43112- 1825 Sep, Type 2 diabetes 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 ; shelter current use of insulin Z79.4 ; Essential hypertension I10 ; 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 ; Reactive depression F32.9 ; Acute vaginitis N76.0 and Mild intermittent asthma without complication J45.20 [facility] [address] 33128- 1598 17 Jul, 2017 [facility] [address] 39219 -1890 Jun, [facility] [address] 50575- 9120 May, [facility] [address] 48002 -2970 May, Cellulitis L03.90 [facility] [id number] [place] [address] 23579- 5214 Mar, [facility] [id number] [place] [address] 23208- 3353 Jan, [facility] [id number] [place] [address] 45141- 1549 Jan, [facility] [address] 831718- 4687 Sep, [facility] [id number] [place] [address] 18801494- 8313 Sep, [facility] [address] [place] [address]- 2885 Apr, 2013 [facility] [place] [facility] [address] [id number] [place] [address]- 7163 Apr, [facility] [place] [facility] [address] [id number] [place] [address]- 8092 Apr, [facility] [place] [facility] [address] [id number] [place] [address]- 2531 Apr, 2013 [facility] [place] [facility] [address] [id number] [place] [address]- 6821 Apr, [facility] [place] [facility] [address] [id number] [place] [address]- 0273 Apr, [facility] [place] [facility] [address] [id number] [place] [address]- 2159 Apr, [facility] [place] [facility] [address] [id number] [place] [address]- 1084 Apr, [facility] [place] [facility] [address] [id number] [place] [address]- 5044 Mar, [facility] [place] [facility] [address] [id number] [place] [address]- 4823 Mar, [facility] [place] [facility] [address] [id number] [place] [address]- 2131 Mar, [facility] [place] [facility] [address] [id number] [place] [address]- 2262 Mar, [facility] [place] [facility] [address] [id number] [place] [address]- 9964 Mar, [facility] [place] [facility] [address] [id number] [place] [address]- 3583 Mar, [facility] [place] [facility] [address] [id number] [place] [address]- 1207 Mar, [facility] [place] [facility] [address] [id number] [place] [address]- 5480 Mar, [facility] [place] [facility] [address] [id number] [place] [address]- 3009 18 Mar, 2014 [facility] [place] [facility] [address] [id number] [place] [address]- 8722 18 Mar, 2014 [facility] [place] [facility] [address] [id number] [place] [address]- 2653 16 Mar, 2014 [facility] [place] [facility] [address] [id number] [place] [address]- 8840 15 Mar, 2014 [facility] [place] [facility] [address] [id number] [place] [address]- 5382 13 Mar, 2014 [facility] [place] [facility] [address] [id number] [place] [address]- 7968 13 Mar, 2014 [facility] [place] [facility] [address] [id number] [place] [address]- 3463 Mar, [facility] [place] [facility] [address] [id number] [place] [address]- 1263 Mar, [facility] [place] [facility] [address] [id number] [place] [address]- 2788 Mar, [facility] [place] [facility] [address] [id number] [place] [address]- 2081 Mar, [facility] [place] [facility] [address] [id number] [place] [address]- 5972 Mar, [facility] [place] [facility] [address] [id number] [place] [address]- 3627 February, [facility] [place] [facility] [address] [id number] [place] [address]- 8940 February, [facility] [place] [facility] [address] [id number] [place] [address]- 2173 Jan, [facility] [place] [facility] [address] [id number] [place] [address]- 0211 Jan, [facility] [place] [facility] [address] [id number] [place] [address]- 8086 18 Jan, 2014 [facility] [place] [facility] [address] [id number] [place] [address]- 5710 18 Jan, 2014 [facility] [place] [facility] [address] [id number] [place] [address]- 6313 17 Jan, 2014 [facility] [place] [facility] [address] [id number] [place] [address]- 1000 17 Jan, 2014 [facility] [place] [facility] [address] [id number] [place] [address]- 6344 14 Jan, 2014 [facility] [place] [facility] [address] [id number] [place] [address]- 6420 11 Jan, 2014 [facility] [place] [facility] [address] [id number] [place] [address]- 7926 10 Jan, 2014 [facility] [place] [facility] [address] [id number] [place] [address]- 3210 Jan, [facility] [place] [facility] [address] [id number] [place] [address]- 7914 17 Dec, 2013 [facility] [place] [facility] [address] [id number] [place] [address]- 7310 17 Dec, 2013 [facility] [place] [facility] [address] [id number] [place] [address]- 9519 Dec, [facility] [place] [facility] [address] [id number] [place] [address]- 7102 11 Dec, 2013 [facility] [place] [facility] [address] [id number] [place] [address]- 9550 10 Dec, 2013 [facility] [place] [facility] [address] [id number] [place] [address]- 6453 10 Dec, 2013 [facility] [place] [facility] [address] [id number] [place] [address]- 9856 07 Dec, 2013 [facility] [place] [facility] [address] [id number] [place] [address]- 1345 07 Dec, 2013 [facility] [place] [facility] [address] [id number] [place] [address]- 4118 Dec, [facility] [address] [id number] [place] [address]- 2319 Dec, [facility] [address] [id number] [place] [address]- 5145 Oct, [facility] [address] [id number] [place] [address]- 9026 Oct, [facility] [address] [id number] [place] [address]- 0932 Jul, [facility] [address] [id number] [place] [address]- 1360 Jul, [facility] [address] [id number] [place] 7970 Jul, [facility] [address] [id number] [place] [address]- 4714 Jun, [facility] [address] [id number] [place] [address]- 4623 Jun, [facility] [address] [id number] [place] [address]- 3622 Jun, [facility] [address] [id number] [place] [address]- 4054 Jun, [facility] [place] [facility] [address] [id number] [place] [address]- 6428 Apr, [facility] [address] [id number] [place] [address]- 2851 February, [facility] [place] [facility] [address] [id number] [place] [address]- 0816 Nov, [facility] [place] [facility] [address] [id number] [place] [address]- 8916 Nov, [facility] [place] [facility] [address] [id number] [place] [address]- 4146 Nov, [facility] [place] [facility] [address] [id number] [place] [address]- 3194 Sep, [facility] [place] [facility] [address] [id number] [place] [address]- 9847 Sep, [facility] [place] [facility] [address] [id number] [place] [address]- 0225 Sep, [facility] [place] [facility] [address] [id number] [place] [address]- 6418 Sep, [facility] [place] [facility] [address] [id number] [place] [address]- 6869 Sep, [facility] [place] [facility] [address] [id number] [place] [address]- 8750 Sep, [facility] [place] [facility] [address] [facility] [id number] [place] [address]- 4089 Sep, [facility] [place] [facility] [address] [id number] [place] [address]- 7669 Sep, [facility] [place] [facility] [address] [id number] [place] [address]- 9240 Sep, [facility] [place] [facility] [address] [facility] [id number] [place] [address]- 6780 Sep, [facility] [place] [facility] [address] [id number] [place] [address]- 9339 Aug, [facility] [place] [facility] [address] [id number], [place] [address]- 9185 Aug, [facility] [place] [facility] [address] [id number] [place] [address]- 6830 Aug, [facility] [place] [facility] [address] [id number] [place] [address]- 6011 Aug, [facility] [place] [facility] [address] [id number] [place] [address]- 8074 Aug, [facility] [place] [facility] [address] [id number] [place] [address]- 9211 Jul, [facility] [address] [id number] [place] [address]- 7093 Apr, [facility] [place] [facility] [address] [id number] [place] [address]- 8456 February, [facility] [place] [facility] [address] [id number] [place] [address]- 4390 Jan, [facility] [place] [facility] [address] [id number] [place] [address]- 8464 Jan, [facility] [place] [facility] [address] [id number] [place] [address]- 8052 Dec, [facility] [place] [facility] [address] [id number] [place] [address] 2546 Dec, [facility] [address] [id number] [place] [address]- 8765 Oct, [facility] [place] [facility] [address] [id number] [place] [address]- 1107 Oct, [facility] [place] [facility] [address] [id number] [place] [address]- 4540 February, [facility] [place] [facility] [address] [facility] [id number] [place] [address]- 3513 Sep, [facility] [place] [facility] [address] [id number] [place] [address]- 5862 Jul, [facility] [place] [facility] [address] [id number] [place] [address]- 8429 Jul, [facility] [place] [facility] [address] [id number] [place] [address]- 6618 Jul, [facility] [place] [facility] [address] [id number] [place] [address]- 1955 17 Jun, 2010 [facility] [place] [facility] [address] [facility] [id number] [place] [address]- 9163 15 Sep, 2009 [facility] [place] [facility] [address] [facility] [id number] [place] [address]- 0286 Sep, [facility] [address] [facility] [id number], [place] [address]- 5446 Sep, [facility] [address] [facility] [id number], [place] [address]- 2254 Jun, [facility] [address] [facility] [id number], [place] [address]- 2030 Dec, IMMUNIZATIONS No Known Immunizations SOCIAL HISTORY Never Assessed REASON FOR VISIT DM ED attempt PLAN OF CARE VITAL SIGNS MEDICATIONS Unknown Medications RESULTS No Results PROCEDURES No Known procedures INSTRUCTIONS MEDICATIONS ADMINISTERED No Known Medications MEDICAL (GENERAL) HISTORY Type Description Date Medical History diabetes type 1 Medical History hypertension Medical History asthma Medical History depression Medical History Diabetic Macular Edema Surgical History 1985, 1988, 1991, 1994 Hospitalization History multiple
--- OUTSIDE RECORDS SUMMARY | 2018-08-17 23:53 | XMS REPORT ---
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 Active 335288545 Problem Type 2 diabetes 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 Active 83526689 Problem Mild intermittent asthma without complication J45.20 Active 429558690 Problem Essential hypertension I10 Active 13140253 Problem Mixed hyperlipidemia E78.2 Active 069644859 Problem Hospital discharge follow-up Z09 Active 097441633 Problem Local infection of the skin and subcutaneous tissue, unspecified L08.9 Active 534271323 Problem Unspecified staphylococcus as the cause of diseases classified elsewhere B95.8 Active 06331306 Problem Chronic kidney disease, unspecified CKD stage N18.9 Active 821126285 Problem Lumbar radiculopathy, chronic M54.16 Active 923349547 ALLERGIES No Information ENCOUNTERS Encounter Location Date Diagnosis [facility] [address] [facility] [id number] [address] Jul, [facility] [address] [id number] [address] Jun, [facility] [address] [id number] [address] May, [facility] [address] [id number] [address] 4399 May, [facility] [address] [id number] [address] May, [place] [id number] [place] [address] 94842- 4954 May, Mixed hyperlipidemia E78.2 [place] [id number] [place] [address] 35412- 5075 May, Type 2 diabetes 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 and Mixed hyperlipidemia E78.2 [place] [id number] [place] [address] 03085- 8377 May, Type 2 diabetes mellitus with diabetic polyneuropathy E11.42 ; [facility]CI current use of insulin Z79.4 ; Hospital discharge follow-up Z09 ; Dehydration E86.0 ; Chronic kidney disease, unspecified CKD stage N18.9 and Yeast vaginitis B37.3 [place] [id number] [place] [address] 57703- 8943 Apr, Lumbar radiculopathy M54.16 [place] [id number] [place] [address] 02067- 2385 Apr, Lumbar radiculopathy, chronic M54.16 ; Type 2 diabetes mellitus with diabetic polyneuropathy E11.42 ; Dysuria R30.0 and Essential hypertension I10 [place] [id number] [place] [address] 82590- 3135 Apr, Type 2 diabetes mellitus with diabetic polyneuropathy E11.42 [place] [id number] [place] [address] 82074- 7623 Apr, [place] [id number] [place] [address] 42051- 3886 Apr, [place] [id number] [place] [address] 13545- 0387 Mar, [place] [id number] [place] [address] 98371- 1987 Mar, Anxiety state, unspecified F41.1 [place] [id number] [place] [address] 90087- 6154 Mar, Local infection of the skin and subcutaneous tissue, unspecified L08.9 ; Unspecified staphylococcus as the cause of diseases classified elsewhere B95.8 ; Type 2 diabetes mellitus with diabetic polyneuropathy E11.42 and 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 [place] [id number] [place] [address] 89269- 4517 Mar, Anxiety state, unspecified F41.1 and Depressive disorder, not elsewhere classified F32.9 [place] [id number] [place] [address] 50668- 1801 February, Type 2 diabetes mellitus with diabetic polyneuropathy E11.42 ; FCI current use of insulin Z79.4 ; Essential hypertension I10 ; Anxiety state, unspecified F41.1 ; Depressive disorder, not elsewhere classified F32.9 and Dysuria R30.0 [place] [address] [address]- 2202 Jan, Type 2 diabetes mellitus with diabetic polyneuropathy E11.42 [place] [id number] [place] [address] 42187- 5307 Jan, Type 2 diabetes mellitus with diabetic polyneuropathy E11.42 [place] [id number] [place] [address] 05734- 9675 Jan, [facility] [id number] [place] [address] 10004 -1880 Dec, Migraine without status migrainosus, not intractable, unspecified migraine type G43.909 [place] [id number] [place] [address] 34654- 8549 Dec, Type 2 diabetes mellitus with diabetic polyneuropathy E11.42 ; FCI current use of insulin Z79.4 ; Dog bite, subsequent encounter W54.0XXD and Essential hypertension I10 [facility] [id number] [place] [address] 15608 -6100 Dec, Dog bite, initial encounter W54.0XXA [facility] [id number] [place] [address] 37599- 6793 Dec, [facility] [id number] [place] [address] 13965- 1501 Nov, [facility] [id number] [place] [address] 06225- 7165 Oct, [facility] [address] 07187 -3318 Oct, Fissure in skin of foot R23.4 [facility] [address] 03944- 7029 Oct, [facility] [id number] [place] [address] 00625- 7310 Oct, [facility] [id number] [place] [address] 80814- 6569 Oct, [facility] [id number] [place] [address] 22295- 2205 Oct, Type 2 diabetes mellitus with diabetic polyneuropathy E11.42 [facility] [id number] [place] [address] 59301- 6882 Oct, Anxiety state, unspecified F41.1 and Depressive disorder, not elsewhere classified F32.9 [facility] [id number] [place] [address] 34700- 0361 Oct, [facility] [id number] [place] [address] 49223- 2303 Oct, [facility] [id number] [place] [address] 00394- 9264 Sep, Essential hypertension I10 [facility] [id number] [place] [address] 54680- 1896 14 Sep, 2017 [facility] [id number] [place] [address] 80319- 3346 Sep, Type 2 diabetes mellitus with diabetic polyneuropathy E11.42 and Neuropathic ulcer of foot, unspecified laterality, unspecified ulcer stage L97.509 [facility] [id number] [place] [address] 36077- 7632 Sep, Neuropathic ulcer of foot, unspecified laterality, unspecified ulcer stage L97.509 and Acute vaginitis N76.0 [facility] [address] 44662- 0063 Sep, Type 2 diabetes mellitus with diabetic polyneuropathy E11.42 ; FCI current use of insulin Z79.4 ; Essential hypertension I10 ; 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 ; Reactive depression F32.9 ; Acute vaginitis N76.0 and Mild intermittent asthma without complication J45.20 [facility] [id number] [place] [address] 91568- 0346 17 Jul, 2017 [facility] [address] 44172 -3641 Jun, [facility] [id number] [place] [address] 98227- 6731 May, [facility] [id number] [place] [address] 62180 -4970 May, Cellulitis L03.90 [place] [id number] [place] [address] 04070- 0728 Mar, [facility] [id number] [place] [address] 99446- 5425 Jan, [facility] [id number] [place] [address] 87355- 2557 Jan, [place] [address] 906912- 4837 Sep, [facility] [id number] [place] [address] 25399- 1933 Sep, [facility] [id number] [address]- 4042 Apr, 2013 [facility] [place] [facility] [address] [id number] [place] [address]- 1625 Apr, [facility] [place] [facility] [address] [id number] [place] [address]- 0386 Apr, [facility] [place] [facility] [address] [id number] [place] [address]- 2493 Apr, 2013 [facility] [place] [facility] [address] [id number] [place] [address]- 9607 Apr, [facility] [place] [facility] [address] [id number] [place] [address]- 0112 Apr, [facility] [place] [facility] [address] [id number] [place] [address]- 8576 Apr, [facility] [place] [facility] [address] [id number] [place] [address]- 6939 Apr, [facility] [place] [facility] [address] [id number] [place] [address]- 3304 Mar, [facility] [place] [facility] [address] [id number] [place] [address]- 2453 Mar, [facility] [place] [facility] [address] [id number] [place] [address]- 0257 Mar, [facility] [place] [facility] [address] [id number] [place] [address]- 4059 Mar, [facility] [place] [facility] [address] [id number] [place] [address]- 5186 Mar, [facility] [place] [facility] [address] [id number] [place] [address]- 8593 Mar, [facility] [place] [facility] [address] [id number] [place] [address]- 9677 Mar, [facility] [place] [facility] [address] [id number] [place] [address]- 6788 Mar, [facility] [place] [facility] [address] [id number] [place] [address]- 7048 18 Mar, 2014 [facility] [place] [facility] [address] [id number] [place] [address]- 5999 18 Mar, 2014 [facility] [place] [facility] [address] [id number] [place] [address]- 3024 16 Mar, 2014 [facility] [place] [facility] [address] [id number] [place] [address]- 4241 15 Mar, 2014 [facility] [place] [facility] [address] [id number] [place] [address]- 9713 13 Mar, 2014 [facility] [place] [facility] [address] [id number] [place] [address]- 4055 Mar, [facility] [place] [facility] [address] [id number] [place] [address]- 4035 Mar, [facility] [place] [facility] [address] [id number] [place] [address]- 0479 Mar, [facility] [place] [facility] [address] [id number] [place] [address]- 1088 Mar, [facility] [place] [facility] [address] [id number] [place] [address]- 1595 Mar, [facility] [place] [facility] [address] [id number] [place] [address]- 3164 Mar, [facility] [place] [facility] [address] [id number] [place] [address]- 2139 February, [facility] [place] [facility] [address] [id number] [place] [address]- 2090 February, [facility] [place] [facility] [address] [id number] [place] [address]- 1070 Jan, [facility] [place] [facility] [address] [id number] [place] [address]- 8607 Jan, [facility] [place] [facility] [address] [id number] [place] [address]- 1176 18 Jan, 2014 [facility] [place] [facility] [address] [id number] [place] [address]- 1450 18 Jan, 2014 [facility] [place] [facility] [address] [id number] [place] [address]- 5157 17 Jan, 2014 [facility] [place] [facility] [address] [id number] [place] [address]- 0544 17 Jan, 2014 [facility] [place] [facility] [address] [id number] [place] [address]- 6573 14 Jan, 2014 [facility] [place] [facility] [address] [id number] [place] [address]- 5855 11 Jan, 2014 [facility] [place] [facility] [address] [id number] [place] [address]- 4487 10 Jan, 2014 [facility] [place] [facility] [address] [id number] [place] [address]- 9030 Jan, [facility] [place] [facility] [address] [id number] [place] [address]- 2031 17 Dec, 2013 [facility] [place] [facility] [address] [id number] [place] [address]- 3303 17 Dec, 2013 [facility] [place] [facility] [address] [id number] [place] [address]- 4180 Dec, [facility] [place] [facility] [address] [id number] [place] [address]- 9398 Dec, [facility] [place] [facility] [address] [id number] [place] [address]- 2029 10 Dec, 2013 [facility] [place] [facility] [address] [id number] [place] [address]- 6226 10 Dec, 2013 [facility] [place] [facility] [address] [id number] [place] [address]- 6735 07 Dec, 2013 [facility] [place] [facility] [address] [id number] [place] [address]- 6446 07 Dec, 2013 [facility] [place] [facility] [address] [id number] [place] [address]- 9970 Dec, [facility] [address] [id number] [place] [address]- 9876 Dec, [facility] [place] [facility] [address] [id number] [place] [address]- 0193 Oct, [facility] [address] [id number] [place] [address]- 5511 Oct, [facility] [place] [facility] [address] [id number] [place] [address]- 4325 Jul, [facility] [address] [id number] [place] [address]- 7064 Jul, [facility] [place] [facility] [address] [id number] [place] [address]- 6305 Jul, [facility] [address] [id number] [place] [address]- 5930 Jun, [facility] [address] [id number] [place] [address]- 2264 Jun, [facility] [place] [facility] [address] [id number] [place] [address]- 1018 Jun, [facility] [address] [id number] [place] [address]- 0535 Jun, [facility] [place] [facility] [address] [id number] [place] [address]- 2862 Apr, [facility] [place] [facility] [address] [id number] [place] [address]- 6161 February, [facility] [place] [facility] [address] [id number] [place] [address]- 9845 Nov, [facility] [place] [facility] [address] [id number] [place] [address]- 2076 Nov, [facility] [place] [facility] [address] [id number] [place] [address]- 7974 14 Nov, 2012 [facility] [place] [facility] [address] [id number] [place] [address]- 8929 Sep, [facility] [place] [facility] [address] [id number] [place] [address]- 0496 Sep, [facility] [place] [facility] [address] [id number] [place] 2995 Sep, [facility] [place] [facility] [address] [id number] [place] [address]- 4373 Sep, [facility] [place] [facility] [address] [id number] [place] [address]- 5365 Sep, [facility] [place] [facility] [address] [id number] [place] [address]- 0861 Sep, [facility] [place] [facility] [address] [id number] [place] [address]- 9542 Sep, [facility] [place] [facility] [address] [id number] [place] [address]- 4008 Sep, [facility] [place] [facility] [address] [id number] [place] [address]- 3216 Sep, [facility] [place] [facility] [address] [id number] [place] [address]- 9814 Sep, [facility] [place] [facility] [address] [id number] [address]- 9127 Aug, [facility] [place] [facility] [address] [id number] [address]- 2031 Aug, [facility] [place] [facility] [address] [id number] [place] [address]- 4345 Aug, [facility] [place] [facility] [address] [id number] [place] [address]- 2193 Aug, [facility] [place] [facility] [address] [id number] [place] [address]- 9073 Aug, [facility] [place] [facility] [address] [id number] [place] [address]- 3316 Jul, [facility] [address] [id number] [place] [address]- 4716 Apr, [facility] [place] [facility] [address] [id number] [place] [address]- 1896 February, [facility] [address] [id number] [place] [address]- 4476 Jan, [facility] [place] [facility] [address] [id number] [place] [address]- 2125 Jan, [facility] [address] [id number] [place] [address]- 1019 Dec, [facility] [place] [facility] [address] [id number] [place] [address] 2546 Dec, [facility] [address] [id number] [place] [address]- 7642 Oct, [facility] [place] [facility] [address] [id number] [place] [address]- 7260 Oct, [facility] [place] [facility] [address] [id number] [place] [address]- 2823 February, [facility] [address] [facility] [id number] [place] [address]- 2074 Sep, [facility] [place] [facility] [address] [id number] [place] [address]- 0719 Jul, [facility] [place] [facility] [address] [id number] [place] [address]- 9443 Jul, [facility] [place] [facility] [address] [id number] [place] [address]- 4695 Jul, [facility] [place] [facility] [address] [id number] [place] [address] 2546 17 Jun, 2010 [facility] [place] [facility] [address] [id number] [place] [address]- 6089 Sep, [facility] [address] [facility] [id number] [address]- 1556 Sep, [facility] [address] [facility] [id number] [address] 2546 Sep, [facility] [address] [facility] [id number] [address] 2546 Jun, [facility] [address] [facility] [id number] [address]- 9246 Dec, IMMUNIZATIONS No Known Immunizations SOCIAL HISTORY Never Assessed REASON FOR VISIT Exam Rm Urgent [facility] Contact PLAN OF CARE Activity Details Follow Up prn Reason:To be scheduled by patient when she is able to get to [facility] VITAL SIGNS MEDICATIONS Unknown Medications RESULTS No Results PROCEDURES Procedure Date Ordered Result Body Site Psychotherapy, patient &/family, 60 minutes, new patient March 13, 2018 INSTRUCTIONS MEDICATIONS ADMINISTERED No Known Medications MEDICAL (GENERAL) HISTORY Type Description Date Medical History diabetes type 1 Medical History hypertension Medical History asthma Medical History depression Medical History Diabetic Macular Edema Surgical History 1985, 1988, 1991, 1994 Hospitalization History multiple
--- OUTSIDE RECORDS SUMMARY | 2018-08-17 23:54 | XMS REPORT ---
Author Author ADORE MARSHALL Organization [facility] Address [address] [place] [address] Care Team Providers Care Interior Wirer Name Role Phone ADORE MARSHALL Unavailable PROBLEMS Type Condition ICD9-CM Code [id number] Code Onset Dates Condition Status SNOMED Code Problem Anxiety state, unspecified F41.1 Active 321414313 Problem Migraine without status migrainosus, not intractable, unspecified migraine type G43.909 Active 80882948 Problem Depressive disorder, not elsewhere classified F32.9 Active 35826052 Problem residential current use of insulin Z79.4 Active 449365981 Problem Type 2 diabetes mellitus with diabetic polyneuropathy E11.42 Active 58506392 Problem Mild intermittent asthma without complication J45.20 Active 914490993 Problem Essential hypertension I10 Active 38293399 Problem Mixed hyperlipidemia E78.2 Active 421298244 Problem Hospital discharge follow-up Z09 Active 837071920 Problem Local infection of the skin and subcutaneous tissue, unspecified L08.9 Active 925719964 Problem Unspecified staphylococcus as the cause of diseases classified elsewhere B95.8 Active 18208863 Problem Chronic kidney disease, unspecified CKD stage N18.9 Active 005957767 Problem Lumbar radiculopathy, chronic M54.16 Active 500927809 ALLERGIES No Information ENCOUNTERS Encounter Location Date Diagnosis [facility] [id number] [address] Jul, [facility] [id number] [address] Jun, [facility] [id number] [address] May, [facility] [id number] [address] May, [facility] [id number] [place] [address] 96433- 2518 May, [place] [id number] [place] [address] 47937- 3634 May, Mixed hyperlipidemia E78.2 [place] [id number] [place] [address] 81213- 4762 May, Type 2 diabetes mellitus with diabetic polyneuropathy E11.42 and Mixed hyperlipidemia E78.2 [place] [id number] [place] [address] 14053- 3596 May, Type 2 diabetes mellitus with diabetic polyneuropathy E11.42 ; residential current use of insulin Z79.4 ; Hospital discharge follow-up Z09 ; Dehydration E86.0 ; Chronic kidney disease, unspecified CKD stage N18.9 and Yeast vaginitis B37.3 [place] [id number] [place] [address] 14716- 1744 Apr, Lumbar radiculopathy M54.16 [place] [id number] [place] [address] 19503- 0524 Apr, Lumbar radiculopathy, chronic M54.16 ; Type 2 diabetes mellitus with diabetic polyneuropathy E11.42 ; Dysuria R30.0 and Essential hypertension I10 [place] [id number] [place] [address] 66474- 7860 Apr, Type 2 diabetes mellitus with diabetic polyneuropathy E11.42 [place] [id number] [place] [address] 94824- 3056 Apr, [place] [id number] [place] [address] 29437- 3075 Apr, [place] [id number] [place] [address] 71042- 6496 Mar, [place] [id number] [place] [address] 27670- 5299 Mar, Anxiety state, unspecified F41.1 [address] [id number] [address] Mar, Local infection of the skin and subcutaneous tissue, unspecified L08.9 ; Unspecified staphylococcus as the cause of diseases classified elsewhere B95.8 ; Type 2 diabetes mellitus with diabetic polyneuropathy E11.42 and residential current use of insulin Z79.4 [place] [id number] [place] [address] 79951- 2109 Mar, Anxiety state, unspecified F41.1 and Depressive disorder, not elsewhere classified F32.9 [place] [id number] [place] [address] 27345- 7101 February, Type 2 diabetes mellitus with diabetic polyneuropathy E11.42 ; residential current use of insulin Z79.4 ; Essential hypertension I10 ; Anxiety state, unspecified F41.1 ; Depressive disorder, not elsewhere classified F32.9 and Dysuria R30.0 [place] [id number] [place] [address] 73373- 5056 Jan, Type 2 diabetes mellitus with diabetic polyneuropathy E11.42 [place] [id number] [place] [address] 60104- 9103 Jan, Type 2 diabetes mellitus with diabetic polyneuropathy E11.42 [place] [id number] [place] [address] 27547- 2449 Jan, [facility] [id number] [place] [address] 51339 -4478 Dec, Migraine without status migrainosus, not intractable, unspecified migraine type G43.909 [place] [id number] [place] [address] 07496- 5123 Dec, Type 2 diabetes mellitus with diabetic polyneuropathy E11.42 ; 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 [address] [address] Dec, [facility] [id number] [place] [address] 01291- 6620 Nov, [facility] [id number] [place] [address] 32988- 7160 Oct, [facility] [id number] [place] [address] 61278 -7497 Oct, Fissure in skin of foot R23.4 [facility] [id number] [place] [address] 07216- 3602 Oct, [facility] [id number] [place] [address] 55054- [address]62 Oct, [facility] [id number] [place] [address] 84359- 5007 Oct, [facility] [id number] [place] [address] 16349- 2715 Oct, Type 2 diabetes mellitus with diabetic polyneuropathy E11.42 [facility] [id number] [place] [address] 79716- 4290 Oct, Anxiety state, unspecified F41.1 and Depressive disorder, not elsewhere classified F32.9 [facility] [id number] [place] [address] 24247- 7407 Oct, [facility] [id number] [place] [address] 85511- 8538 Oct, [facility] [id number] [place] [address] 89021- 4662 Sep, Essential hypertension I10 [facility] [id number] [place] [address] 43521- 1157 14 Sep, 2017 [facility] [id number] [place] [address] 28005- 2742 Sep, Type 2 diabetes mellitus with diabetic polyneuropathy E11.42 and Neuropathic ulcer of foot, unspecified laterality, unspecified ulcer stage L97.509 [facility] [id number] [place] [address] 26307- 3212 Sep, Neuropathic ulcer of foot, unspecified laterality, unspecified ulcer stage L97.509 and Acute vaginitis [address]76.0 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 [address] 05687- 0946 17 Jul, 2017 [facility] [address] [address]658 [address] Jun, [facility] [address] [address]20- 4086 May, [facility] [address] 27716 -3025 May, Cellulitis L03.90 [facility] [id number] [place] [address] 25610- 9971 Mar, [facility] [id number] [place] [address] 91621- [address]267 Jan, [facility] [id number] [place] [address] 35309- 1523 Jan, [facility] [address] 169089- 7016 Sep, [facility] [id number] [place] [address] 63770- 1279 Sep, [facility] [address] [place] [address]- 4254 Apr, [facility] [place] [facility] [address] [id number] [place] [address]- 2295 Apr, [facility] [place] [facility] [address] [id number] [place] [address]- 4275 Apr, [facility] [place] [facility] [address] [id number] [place] [address]- 5237 Apr, 2013 [facility] [place] [facility] [address] [id number] [place] [address]- 0413 Apr, [facility] [place] [facility] [address] [id number] [place] [address]- 2820 Apr, [facility] [place] [facility] [address] [id number] [place] [address]- 2511 Apr, [facility] [place] [facility] [address] [id number] [place] [address]- 2520 Apr, [facility] [place] [facility] [address] [id number] [place] [address]- 8789 Mar, [facility] [place] [facility] [address] [id number] [place] [address]- 6312 Mar, [facility] [place] [facility] [address] [id number] [place] [address]- 8989 Mar, [facility] [place] [facility] [address] [id number] [place] [address]- 2883 Mar, [facility] [place] [facility] [address] [id number] [place] [address]- 3298 Mar, [facility] [place] [facility] [address] [id number] [place] [address]- 4402 Mar, [facility] [place] [facility] [address] [id number] [place] [address]- 6430 Mar, [facility] [place] [facility] [address] [id number] [place] [address]- 2144 Mar, [facility] [place] [facility] [address] [id number] [place] [address]- 3852 18 Mar, 2014 [facility] [place] [facility] [address] [id number] [place] [address]- 6193 18 Mar, 2014 [facility] [place] [facility] [address] [id number] [place] [address]- 3124 16 Mar, 2014 [facility] [place] [facility] [address] [id number] [place] [address]- 6209 15 Mar, 2014 [facility] [place] [facility] [address] [id number] [place] [address]- 7611 13 Mar, 2014 [facility] [place] [facility] [address] [id number] [place] [address]- 8328 Mar, [facility] [place] [facility] [address] [id number] [place] [address]- 9067 Mar, [facility] [place] [facility] [address] [id number] [place] [address]- 8169 Mar, [facility] [place] [facility] [address] [id number] [place] [address]- 7020 Mar, [facility] [place] [facility] [address] [id number] [place] [address]- 5915 Mar, [facility] [place] [facility] [address] [id number] [place] [address]- 5998 Mar, [facility] [place] [facility] [address] [id number] [place] [address]- 3052 February, [facility] [place] [facility] [address] [id number] [place] [address]- 1478 February, [facility] [place] [facility] [address] [id number] [place] [address]- 3873 Jan, [facility] [place] [facility] [address] [id number] [place] [address]- 8766 Jan, [facility] [place] [facility] [address] [id number] [place] [address]- 7899 18 Jan, 2014 [facility] [place] [facility] [address] [id number] [place] [address]- 8539 18 Jan, 2014 [facility] [place] [facility] [address] [id number] [place] [address]- 4715 17 Jan, 2014 [facility] [place] [facility] [address] [id number] [place] [address]- 8214 17 Jan, 2014 [facility] [place] [facility] [address] [id number] [place] [address]- 2097 14 Jan, 2014 [facility] [place] [facility] [address] [id number] [place] [address]- 8582 11 Jan, 2014 [facility] [place] [facility] [address] [id number] [place] [address]- 5750 10 Jan, 2014 [facility] [place] [facility] [address] [id number] [place] [address]- 6322 Jan, [facility] [place] [facility] [address] [id number] [place] [address]- 5304 17 Dec, 2013 [facility] [place] [facility] [address] [id number] [place] [address]- 5277 17 Dec, 2013 [facility] [place] [facility] [address] [id number] [place] [address]- 5456 Dec, [facility] [place] [facility] [address] [id number] [place] [address]- 6047 11 Dec, 2013 [facility] [place] [facility] [address] [id number] [place] [address]- 1365 10 Dec, 2013 [facility] [place] [facility] [address] [id number] [place] [address]- 8123 10 Dec, 2013 [facility] [place] [facility] [address] [id number] [place] [address]- 7194 07 Dec, 2013 [facility] [place] [facility] [address] [id number] [place] [address]- 3091 07 Dec, 2013 [facility] [place] [facility] [address] [id number] [place] [address]- 2462 Dec, [facility] [address] [id number] [place] [address]- 3551 Dec, [facility] [place] [facility] [address] [id number] [place] [address]- 0600 Oct, [facility] [address] [id number] [place] [address]- 8802 Oct, [facility] [place] [facility] [address] [id number] [place] [address]- 9122 Jul, [facility] [address] [id number] [place] [address]- 4434 Jul, [facility] [place] [facility] [address] [id number] [place] [address]- 4303 Jul, [facility] [address] [id number] [place] [address]- 2871 Jun, [facility] [address] [id number] [place] [address]- 5949 Jun, [facility] [place] [facility] [address] [id number] [place] [address]- 2900 Jun, [facility] [place] [facility] [address] [id number] [place] [address]- 1794 Jun, [facility] [place] [facility] [address] [id number] [place] [address]- 8700 Apr, [facility] [place] [facility] [address] [id number] [place] [address]- 1814 February, [facility] [place] [facility] [address] [id number] [place] [address]- 2042 Nov, [facility] [place] [facility] [address] [id number] [place] [address]- 2264 Nov, [facility] [place] [facility] [address] [id number] [place] [address]- 7484 Nov, [facility] [place] [facility] [address] [id number] [place] [address]- 8325 Sep, [facility] [place] [facility] [address] [id number] [place] [address]- 6022 Sep, [facility] [place] [facility] [address] [id number] [place] [address]- 7440 Sep, [facility] [place] [facility] [address] [id number] [place] [address]- 8673 Sep, [facility] [place] [facility] [address] [id number] [place] [address]- 9396 Sep, [facility] [place] [facility] [address] [id number] [place] [address]- 2519 Sep, [facility] [place] [facility] [address] [id number] [place] [address]- 7373 Sep, [facility] [place] [facility] [address] [id number] [place] [address]- 1453 Sep, [facility] [place] [facility] [address] [id number] [place] [address]- 7868 Sep, [facility] [place] [facility] [address] [facility] [id number] [place] [address]- 2183 Sep, [facility] [place] [facility] [address] [id number] [place] [address]- 7505 Aug, [facility] [place] [facility] [address] [id number] [address]- 8779 Aug, [facility] [place] [facility] [address] [id number] [place] [address]- 5825 Aug, [facility] [place] [facility] [address] [id number] [place] [address]- 5991 Aug, [facility] [place] [facility] [address] [id number] [place] [address]- 0509 Aug, [facility] [place] [facility] [address] [id number] [place] [address]- 6703 Jul, [facility] [address] [id number] [place] [address]- 5023 Apr, [facility] [place] [facility] [address] [id number] [place] [address]- 9706 February, [facility] [address] [id number] [place] [address]- 8187 Jan, [facility] [place] [facility] [address] [id number] [place] [address]- 3098 Jan, [facility] [address] [id number] [place] [address], [place] [address]- 9329 Dec, [facility] [place] [facility] [address] [id number] [place] [address]- 9916 Dec, [facility] [address] [id number] [place] [address]- 7882 Oct, [facility] [address] [id number] [place] [address]- 7225 Oct, [facility] [address] [id number] [place] [address]- 8171 February, [facility] [address] [id number] [place] [address]- 7948 Sep, [facility] [address] [id number] [place] [address]- 7200 Jul, [facility] [place] [facility] [address] [id number] [address]- 1667 Jul, [facility] [place] [facility] [address] [id number] [place] [address]- 4680 Jul, [facility] [place] [facility] [address] [id number] [place] [address]- 7153 17 Jun, 2010 [facility] [place] [facility] [address] [id number] [place] [address]- 7953 15 Sep, 2009 [facility] [place] [facility] [address] [facility] [id number] [place] [address]- 2546 Sep, [facility] [address] [facility] [id number] [address]- [address] Sep, [facility] [address] [facility] [id number] [place] [address]- 2546 Jun, [facility] [address] [facility] [id number] [place] [address]- 9946 Dec, IMMUNIZATIONS No Known Immunizations SOCIAL HISTORY Never Assessed REASON FOR VISIT Lab results/new orders PLAN OF CARE VITAL SIGNS MEDICATIONS Medication Instructions Dosage Frequency Start Date End Date Duration Status Atorvastatin Calcium 20 mg Orally Once a day 1 tablet 24h May, 30 day(s) Active Levemir 100 UNIT/ML Subcutaneous once a day Inject 40 units 24h 28 Active RESULTS No Results PROCEDURES No Known procedures INSTRUCTIONS MEDICATIONS ADMINISTERED No Known Medications MEDICAL (GENERAL) HISTORY Type Description Date Medical History diabetes type 1 Medical History hypertension Medical History asthma Medical History depression Medical History Diabetic Macular Edema Surgical History 1985, 1988, 1991, 1994 Hospitalization History multiple
--- OUTSIDE RECORDS SUMMARY | 2018-08-17 23:54 | XMS REPORT ---
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 032920256 Problem Type 2 diabetes mellitus with diabetic polyneuropathy E11.42 Active 58619238 Problem Mild intermittent asthma without complication J45.20 Active 870389772 Problem Essential hypertension I10 Active 66140718 Problem Mixed hyperlipidemia E78.2 Active 120498564 Problem Hospital discharge follow-up Z09 Active 452478962 Problem Local infection of the skin and subcutaneous tissue, unspecified L08.9 Active 001794529 Problem Unspecified staphylococcus as the cause of diseases classified elsewhere B95.8 Active 54960833 Problem Chronic kidney disease, unspecified CKD stage N18.9 Active 973505130 Problem Lumbar radiculopathy, chronic M54.16 Active 976604287 ALLERGIES Substance Reaction Event Type Date Status Metformin HCl Unknown Drug Allergy May, Active Ketorolac Tromethamine nausea Drug Allergy May, Active Hydrocodone Bitartrate hives Drug Allergy May, Active Biaxin Unknown Drug Allergy May, Active Amoxicillin Yeast Infections Drug Allergy May, Active ENCOUNTERS Encounter Location Date Diagnosis [facility] [address] [facility] [id number], [place] [address] Jul, [facility] [address] [facility] [id number], [place] [address]69 Jun, [facility] [address] [facility] [id number] [place] [address] 44218- 1020 May, [facility] [address] [place] [id number] [place] [address] 86622- 9304 May, [facility] [id number] [place] [address] 07937- 3347 May, [facility] [address] [address]- 6821 May, Mixed hyperlipidemia E78.2 [facility] [address] [address]01- 9402 May, Type 2 diabetes mellitus with diabetic polyneuropathy E11.42 and Mixed hyperlipidemia E78.2 [place] [address] [id number] [place] [address] 08299- 9864 May, Type 2 diabetes mellitus with diabetic polyneuropathy E11.42 ; detention current use of insulin Z79.4 ; Hospital discharge follow-up Z09 ; Dehydration E86.0 ; Chronic kidney disease, unspecified CKD stage N18.9 and Yeast vaginitis B37.3 [place] [address] [address] [id number] [place] [address] 39678- 4109 Apr, Lumbar radiculopathy M54.16 [place] [address] [address] [id number] [place] [address] 43259- 2671 Apr, Lumbar radiculopathy, chronic M54.16 ; Type 2 diabetes mellitus with diabetic polyneuropathy E11.42 ; Dysuria R30.0 and Essential hypertension I10 [place] [address] [address] [id number] [place] [address] 53898- 0879 Apr, Type 2 diabetes mellitus with diabetic polyneuropathy E11.42 [facility] [place] [address] [address] [id number] [place] [address] 84777- 9115 Apr, [place] [id number] [place] [address] 16065- 2323 Apr, [place] [address] 64186- 8909 Mar, [place] [id number] [place] [address] 29371- 6974 Mar, Anxiety state, unspecified F41.1 [place] [address] [address] [id number] [place] [address] 74584- 7569 Mar, Local infection of the skin and subcutaneous tissue, unspecified L08.9 ; Unspecified staphylococcus as the cause of diseases classified elsewhere B95.8 ; Type 2 diabetes mellitus with diabetic polyneuropathy E11.42 and detention current use of insulin Z79.4 [place] [address] [id number] [place] [address] 72491- 9501 Mar, Anxiety state, unspecified F41.1 and Depressive disorder, not elsewhere classified F32.9 [place] [address] [address] [id number] [place] [address] 31973- 8274 February, Type 2 diabetes mellitus with diabetic polyneuropathy E11.42 ; detention current use of insulin Z79.4 ; Essential hypertension I10 ; Anxiety state, unspecified F41.1 ; Depressive disorder, not elsewhere classified F32.9 and Dysuria R30.0 [place] [id number] [place] [address] 27597- 8699 Jan, Type 2 diabetes mellitus with diabetic polyneuropathy E11.42 [place] [id number] [place] [address] 66005- 2451 Jan, Type 2 diabetes mellitus with diabetic polyneuropathy E11.42 [place] [address] [id number] [place] [address] 79433- 7293 Jan, [facility] [id number] [place] [address] 16470 -1509 Dec, Migraine without status migrainosus, not intractable, unspecified migraine type G43.909 [place] [id number] [place] [address] 72617- 8244 Dec, Type 2 diabetes mellitus with diabetic polyneuropathy E11.42 ; 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 [id number] [place] [address] 79239 -5864 Dec, Dog bite, initial encounter W54.0XXA [facility] [id number] [place] [address] 84125- 8391 Dec, [facility] [address] 29682- 2767 Nov, [facility] [id number] [place] [address] 27906- 5515 Oct, [facility] [address] 55801 -0899 Oct, Fissure in skin of foot R23.4 [place] [address] 14082- 1763 Oct, [facility] [id number] [place] [address] 95108- 9523 Oct, [facility] [address] 57794- 6460 Oct, [facility] [id number] [place] [address] 17925- 6991 Oct, Type 2 diabetes mellitus with diabetic polyneuropathy E11.42 [facility] [id number] [place] [address] 48209- 9589 Oct, Anxiety state, unspecified F41.1 and Depressive disorder, not elsewhere classified F32.9 [place] [address] [address] [id number] [place] [address] 84237- 2655 Oct, [facility] [address] 35683- 2377 Oct, [facility] [id number] [place] [address] 92087- 0987 Sep, Essential hypertension I10 [facility] [id number] [place] [address] 52689- 1945 14 Sep, 2017 [facility] [id number] [place] [address] 31321- 5920 Sep, Type 2 diabetes mellitus with diabetic polyneuropathy E11.42 and Neuropathic ulcer of foot, unspecified laterality, unspecified ulcer stage L97.509 [place] [address] 90962- 5975 Sep, Neuropathic ulcer of foot, unspecified laterality, unspecified ulcer stage L97.509 and Acute vaginitis N76.0 [place] [address] 74665- 0748 12 Sep, 2017 Type 2 diabetes mellitus with diabetic polyneuropathy E11.42 ; detention current use of insulin Z79.4 ; Essential hypertension I10 ; 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 ; Reactive depression F32.9 ; Acute vaginitis N76.0 and Mild intermittent asthma without complication J45.20 [place] [id number] [place] [address] 23024- 6608 17 Jul, 2017 [facility] [id number] [place] [address] 00684 -8184 Jun, [place] [id number] [place] [address] 85687- 4862 May, [facility] [id number] [place] [address] 29969 -9082 May, Cellulitis L03.90 [place] [id number] [place] [address] 63630- 2469 Mar, [place] [id number] [place] [address] 46539- 4063 14 Jan, 2015 [place] [id number] [place] [address] 52937- 8776 Jan, [place] [address] [place] [address]- 6150 Sep, [facility] [place] [facility] [address] [id number] [place] [address]- 3625 Sep, [facility] [place] [facility] [address] [id number] [place] [address]- 3698 Apr, [facility] [place] [facility] [address] [id number] [place] [address]- 2606 Apr, [facility] [place] [facility] [address] [id number] [place] [address]- 5402 Apr, [facility] [place] [facility] [address] [id number] [place] [address]- 7220 Apr, [facility] [place] [facility] [address] [id number] [place] [address]- 7630 Apr, [facility] [place] [facility] [address] [id number] [place] [address]- 3909 Apr, [facility] [place] [facility] [address] [id number] [place] [address]- 4454 Apr, [facility] [place] [facility] [address] [id number] [place] [address]- 0543 Apr, [facility] [place] [facility] [address] [id number] [place] [address]- 4213 Mar, [facility] [place] [facility] [address] [id number] [place] [address]- 5091 Mar, [facility] [place] [facility] [address] [id number] [place] [address]- 1897 Mar, [facility] [place] [facility] [address] [id number] [place] [address]- 3914 Mar, [facility] [place] [facility] [address] [id number] [place] [address]- 1667 Mar, [facility] [place] [facility] [address] [id number] [place] [address]- 5720 Mar, [facility] [place] [facility] [address] [id number] [place] [address]- 4984 19 Mar, 2014 [facility] [place] [facility] [address] [id number] [place] [address]- 0642 19 Mar, 2014 [facility] [place] [facility] [address] [id number] [place] [address]- 6230 18 Mar, 2014 [facility] [place] [facility] [address] [id number] [place] [address]- 3592 18 Mar, 2014 [facility] [place] [facility] [address] [id number] [place] [address]- 4299 16 Mar, 2014 [facility] [place] [facility] [address] [id number] [place] [address]- 8373 15 Mar, 2014 [facility] [place] [facility] [address] [id number] [place] [address]- 2858 13 Mar, 2014 [facility] [place] [facility] [address] [id number] [place] [address]- 8223 13 Mar, 2014 [facility] [place] [facility] [address] [id number] [place] [address]- 2382 11 Mar, 2014 [facility] [place] [facility] [address] [id number] [place] [address]- 1971 Mar, [facility] [place] [facility] [address] [id number] [place] [address]- 3156 Mar, [facility] [place] [facility] [address] [id number] [place] [address]- 9916 Mar, [facility] [place] [facility] [address] [id number] [place] [address]- 3323 Mar, [facility] [place] [facility] [address] [id number] [place] [address]- 3406 February, [facility] [place] [facility] [address] [id number] [place] [address]- 2848 February, [facility] [place] [facility] [address] [id number] [place] [address]- 8539 24 Jan, 2014 [facility] [place] [facility] [address] [id number] [place] [address]- 5207 24 Jan, 2014 [facility] [place] [facility] [address] [id number] [place] [address]- 7938 18 Jan, 2014 [facility] [place] [facility] [address] [id number] [place] [address]- 3271 18 Jan, 2014 [facility] [place] [facility] [address] [id number] [place] [address]- 3257 17 Jan, 2014 [facility] [place] [facility] [address] [id number] [place] [address]- 5161 Jan, [facility] [place] [facility] [address] [id number] [place] [address]- 3649 14 Jan, 2014 [facility] [place] [facility] [address] [id number] [place] [address]- 1481 Jan, [facility] [place] [facility] [address] [id number] [place] [address]- 5849 10 Jan, 2014 [facility] [place] [facility] [address] [id number] [place] [address]- 9253 Jan, [facility] [place] [facility] [address] [id number] [place] [address]- 3570 17 Dec, 2013 [facility] [place] [facility] [address] [id number] [place] [address]- 0390 17 Dec, 2013 [facility] [place] [facility] [address] [id number], [place] [address]- 9828 11 Dec, 2013 [facility] [place] [facility] [address] [id number] [place] [address]- 3432 11 Dec, 2013 [facility] [place] [facility] [address] [id number] [place] [address]- 0890 10 Dec, 2013 [facility] [place] [facility] [address] [id number] [place] 1753 10 Dec, 2013 [facility] [place] [facility] [address] [id number] [place] [address]- 8127 07 Dec, 2013 [facility] [place] [facility] [address] [id number] [place] [address]- 7793 Dec, [facility] [place] [facility] [address] [id number] [place] [address]- 3842 Dec, [facility] [place] [facility] [address] [id number] [place] [address]- 9714 Dec, [facility] [place] [facility] [address] [id number] [place] [address]- 0408 Oct, [facility] [place] [facility] [address] [id number] [place] [address]- 4807 Oct, [facility] [place] [facility] [address] [id number] [place] [address]- 2596 Jul, [facility] [place] [facility] [address] [id number] [place] [address]- 1052 Jul, [facility] [place] [facility] [address] [id number] [place] [address]- 8338 Jul, [facility] [place] [facility] [address] [id number] [place] [address]- 2001 Jun, [facility] [place] [facility] [address] [id number] [place] [address]- 7143 Jun, [facility] [place] [facility] [address] [id number] [place] [address]- 9082 Jun, [facility] [place] [facility] [address] [id number] [place] [address]- 4808 24 Jun, 2013 [facility] [place] [facility] [address] [id number] [place] [address]- 1221 Apr, [facility] [place] [facility] [address] [id number] [place] [address]- 5830 February, [facility] [place] [facility] [address] [id number] [place] [address]- 5344 Nov, [facility] [place] [facility] [address] [id number] [place] [address]- 3462 Nov, [facility] [place] [facility] [address] [id number] [place] [address]- 7636 14 Nov, 2012 [facility] [place] [facility] [address] [id number] [place] [address]- 0826 Sep, [facility] [place] [facility] [address] [id number] [place] [address]- 4066 Sep, [facility] [place] [facility] [address] [id number] [place] [address]- 6987 Sep, [facility] [place] [facility] [address] [id number] [place] [address]- 5425 Sep, [facility] [place] [facility] [address] [id number] [place] [address]- 5999 Sep, [facility] [place] [facility] [address] [id number] [place] [address]- 8689 Sep, [facility] [place] [facility] [address] [id number] [place] [address]- 8343 Sep, [facility] [place] [facility] [address] [facility] [id number] [place] [address]- 4152 Sep, [facility] [place] [facility] [address] [id number], [place] [address]- 4091 Sep, [facility] [place] [facility] [address] [id number], [place] [address]- 8084 Sep, [facility] [place] [facility] [address] [id number] [place] [address]- 6006 Aug, [facility] [place] [facility] [address] [id number] [place] [address]- 3106 Aug, [facility] [place] [facility] [address] [facility] [id number], [place] [address]- 0005 Aug, [facility] [place] [facility] [address] [id number], [place] [address]- 9647 Aug, [facility] [address] [id number] [place] [address]- 4285 Aug, [facility] [place] [facility] [address] [id number] [place] [address]- 1781 Jul, [facility] [place] [facility] [address] [facility] [id number] [place] [address]- 8061 Apr, [facility] [place] [facility] [address] [id number] [place] [address]- 1916 February, [facility] [address] [id number] [place] [address], [place] [address]- 9244 Jan, [facility] [place] [facility] [address] [id number] [place] [address]- 4171 Jan, [facility] [address] [address]- 4113 Dec, [facility] [place] [facility] [address] [id number] [place] [address]- 7262 Dec, [facility] [id number] [place] [address]- 4572 Oct, [facility] [place] [facility] [id number] [place] [address]- 7059 Oct, [facility] [address] [id number], [place] [address]- 5754 February, [facility] [place] [facility] [address] [id number], [place] [address]- 9793 Sep, [facility] [place] [facility] [address] [id number], [place] [address]- 8102 Jul, [facility] [place] [facility] [address] [facility] [id number], [place] [address]- 0163 Jul, [facility] [place] [facility] [address] [facility] [id number], [place] [address]- 9680 Jul, [facility] [place] [facility] [address] [facility] [id number][place] 2489 Jun, [facility] [address] [facility] [id number], [place] [address]- 5819 Sep, [facility] [address] [id number] 6336 Sep, [facility] [address] [id number] 3522 Sep, [facility] [address] [facility] [id number][place] 4621 Jun, [facility] [address] [id number] 3888 Dec, IMMUNIZATIONS No Known Immunizations SOCIAL HISTORY Never Assessed REASON FOR VISIT f/u ER visit, was seen in [facility] ER 05/22/18 for stomach pain and dizziness. Reports was severly dehydrated and had fluid in her ears. CBrumbackRN PLAN OF CARE Activity Details Follow Up 1 Week Reason:DM VITAL SIGNS Height 64 in 2018-05-27 Weight 213.0 lbs 2018-05-27 Temperature 99.0 degrees Fahrenheit 2018-05-27 Heart Rate 96 bpm 2018-05-27 Respiratory Rate 18 2018-05-27 BMI 36.56 kg/m2 2018-05-27 Blood pressure systolic 116 mmHg 2018-05-27 Blood pressure diastolic 84 mmHg 2018-05-27 MEDICATIONS Medication Instructions Dosage Frequency Start Date End Date Duration Status Ventolin HFA 108 (90 Base) MCG/ACT Inhalation every 6 hrs 2 puffs as needed 6h Sep, Active Diflucan 150 MG Orally one time, may repeat in one week if necessary 1 tablet May, Jun, 10 day(s) Active Acetaminophen Extra Strength Active Lisinopril 20 mg Orally Once a day 1 tablet 24h 180 days Active Lorazepam 1 MG Orally twice a day, prnanxiety 1 Sep, 28 days Active Metoclopramide HCl 10 mg Orally 3 times a day 0.5 tablet 8h Active Gabapentin 300 MG Orally 3 times a day 4 capsule 8h Dec, Active Glucocard Expression Test - In Vitro 3 times a day test strips 8h Sep, Active Glucocard Expression Monitor w/Device as directed Sep, Active Metoprolol Succinate ER 25 MG Orally Once a day 1 tablet 24h Active Celexa 40 MG Orally Once a day 1 tablet 24h 30 days Active Humalog KwikPen 100 unit/mL Subcutaneous 3 times a day inject 30 UnITS by Subcutaneous route as per insulin sliding scale protocol 3 times per day BEFORE MEALS 8h Mar, Active Levemir Flexpen 100 unit/mL (3 mL) subcutaneously Once a day 40 UnITS 24h Mar, Active RESULTS No Results PROCEDURES Procedure Date Ordered Result Body Site GLYCATED HEMOGLOBIN TEST May 27, 2018 COMPREHEN METABOLIC PANEL May 27, 2018 VENIPUNCT, ROUTINE* May 27, 2018 ASSAY OF FREE THYROXINE May 27, 2018 ASSAY THYROID STIM HORMONE May 27, 2018 LIPID PANEL May 27, 2018 INSTRUCTIONS MEDICATIONS ADMINISTERED No Known Medications MEDICAL (GENERAL) HISTORY Type Description Date Medical History diabetes type 1 Medical History hypertension Medical History asthma Medical History depression Medical History Diabetic Macular Edema Surgical History 1985, 1988, 1991, 1994 Hospitalization History multiple
--- OUTSIDE RECORDS SUMMARY | 2018-08-17 23:54 | XMS REPORT ---
Author Author ADORE MARSHALL Organization [facility] Address [address] [place] [address] Care Team Providers Care Administrative Program Specialist Name Role Phone ADORE MARSHALL Unavailable PROBLEMS Type Condition ICD9-CM Code DXO37-MT Code Onset Dates Condition Status SNOMED Code Problem Anxiety state, unspecified F41.1 Active 552055458 Problem Migraine without status migrainosus, not intractable, unspecified migraine type G43.909 Active 58329064 Problem Depressive disorder, not elsewhere classified F32.9 Active 90542000 Problem retirement current use of insulin Z79.4 Active 151658877 Problem Type 2 diabetes mellitus with diabetic polyneuropathy E11.42 Active 67810783 Problem Mild intermittent asthma without complication J45.20 Active 632885549 Problem Essential hypertension I10 Active 02001020 Problem Mixed hyperlipidemia E78.2 Active 828251158 Problem Hospital discharge follow-up Z09 Active 334270441 Problem Local infection of the skin and subcutaneous tissue, unspecified L08.9 Active 396816191 Problem Unspecified staphylococcus as the cause of diseases classified elsewhere B95.8 Active 40074491 Problem Chronic kidney disease, unspecified CKD stage N18.9 Active 398158616 Problem Lumbar radiculopathy, chronic M54.16 Active 336661336 ALLERGIES No Information ENCOUNTERS Encounter Location Date Diagnosis [facility] [id number] [address] Jul, [facility] [address] [id number] [address] Jun, [facility] [address] [address] May, [facility] [address] [id number] [address] May, [facility] [id number] [place] [address] 84707- 9771 May, [place] [id number] [place] [address] 70843- 1565 May, Mixed hyperlipidemia E78.2 [place] [id number] [place] [address] 13588- 7291 May, Type 2 diabetes mellitus with diabetic polyneuropathy E11.42 and Mixed hyperlipidemia E78.2 [place] [id number] [place] [address] 55358- 7715 May, Type 2 diabetes mellitus with diabetic polyneuropathy E11.42 ; retirement current use of insulin Z79.4 ; Hospital discharge follow-up Z09 ; Dehydration E86.0 ; Chronic kidney disease, unspecified CKD stage N18.9 and Yeast vaginitis B37.3 [place] [id number] [place] [address] 04520- 7864 Apr, Lumbar radiculopathy M54.16 [place] [id number] [place] [address] 32166- 5684 Apr, Lumbar radiculopathy, chronic M54.16 ; Type 2 diabetes mellitus with diabetic polyneuropathy E11.42 ; Dysuria R30.0 and Essential hypertension I10 [place] [id number] [place] [address] 37541- 4772 Apr, Type 2 diabetes mellitus with diabetic polyneuropathy E11.42 [place] [id number] [place] [address] 58429- 9101 Apr, [place] [id number] [place] [address] 68023- 2379 Apr, [place] [id number] [place] [address] 24129- 7619 Mar, [place] [id number] [place] [address] 02583- 3949 Mar, Anxiety state, unspecified F41.1 [place] [id number] [address] Mar, Local infection of the skin and subcutaneous tissue, unspecified L08.9 ; Unspecified staphylococcus as the cause of diseases classified elsewhere B95.8 ; Type 2 diabetes mellitus with diabetic polyneuropathy E11.42 and retirement current use of insulin Z79.4 [place] [id number] [place] [address] 80968- 6314 Mar, Anxiety state, unspecified F41.1 and Depressive disorder, not elsewhere classified F32.9 [place] [id number] [place] [address] 86571- 4328 February, Type 2 diabetes mellitus with diabetic polyneuropathy E11.42 ; retirement current use of insulin Z79.4 ; Essential hypertension I10 ; Anxiety state, unspecified F41.1 ; Depressive disorder, not elsewhere classified F32.9 and Dysuria R30.0 [place] [id number] [place] [address] 08906- 5449 Jan, Type 2 diabetes mellitus with diabetic polyneuropathy E11.42 [place] [id number] [place] [address] 99367- 1645 Jan, Type 2 diabetes mellitus with diabetic polyneuropathy E11.42 [place] [id number] [place] [address] 28887- 0144 Jan, [facility] [id number] [place] [address] 18910 -2338 Dec, Migraine without status migrainosus, not intractable, unspecified migraine type G43.909 [place] [id number] [place] [address] 01470- 8379 Dec, Type 2 diabetes mellitus with diabetic polyneuropathy E11.42 ; 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 ; Dog bite, subsequent encounter W54.0XXD and Essential hypertension I10 [facility] [id number] [place] [address] 49302 -6758 Dec, Dog bite, initial encounter W54.0XXA [facility] [address] [address] 0748 Dec, [facility] [id number] [place] [address] 84027- 8660 Nov, [facility] [id number] [place] [address] 02650- 9286 Oct, [facility] [id number] [place] [address] 97080 -2863 Oct, Fissure in skin of foot R23.4 [facility] [id number] [place] [address] 11361- 8421 Oct, [facility] [id number] [place] [address] 81537- 4498 Oct, [facility] [id number] [place] [address] 50692- 6046 Oct, [facility] [id number] [place] [address] 72895- 3494 Oct, Type 2 diabetes mellitus with diabetic polyneuropathy E11.42 [facility] [id number] [place] [address] 04093- 8852 Oct, Anxiety state, unspecified F41.1 and Depressive disorder, not elsewhere classified F32.9 [facility] [id number] [place] [address] 41098- 1170 Oct, [facility] [id number] [place] [address] 88025- 5398 Oct, [facility] [id number] [place] [address] 13751- 3308 Sep, Essential hypertension I10 [facility] [id number] [place] [address] 03283- 3328 14 Sep, 2017 [facility] [id number] [place] [address] 54079- 5225 Sep, Type 2 diabetes mellitus with diabetic polyneuropathy E11.42 and Neuropathic ulcer of foot, unspecified laterality, unspecified ulcer stage L97.509 [facility] [id number] [place] [address] 42790- 2308 Sep, Neuropathic ulcer of foot, unspecified laterality, unspecified ulcer stage L97.509 and Acute vaginitis N76.0 [facility] [address] 84244- 6101 Sep, Type 2 diabetes mellitus with diabetic polyneuropathy E11.42 ; 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 ; Essential hypertension I10 ; 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 ; Reactive depression F32.9 ; Acute vaginitis N76.0 and Mild intermittent asthma without complication J45.20 [facility] [address] 25970- 6830 17 Jul, 2017 [facility] [address] 44567 -5069 Jun, [facility] [address] 73479- 1410 May, [facility] [address] 36335 -0917 May, Cellulitis L03.90 [facility] [id number] [place] [address] 66929- 0607 Mar, [facility] [id number] [place] [address] 07970- 9118 Jan, [facility] [id number] [place] [address] 71401- 4476 Jan, [facility] [address] 387959- 1206 Sep, [facility] [id number] [place] [address] 70239- 8983 Sep, [facility] [address] [place] [address]- 3362 Apr, [facility] [place] [facility] [address] [id number] [place] [address]- 4757 Apr, [facility] [place] [facility] [address] [id number] [place] [address]- 3349 Apr, [facility] [place] [facility] [address] [id number] [place] [address]- 9729 Apr, 2013 [facility] [place] [facility] [address] [id number] [place] [address]- 0594 Apr, [facility] [place] [facility] [address] [id number] [place] [address]- 8176 Apr, [facility] [place] [facility] [address] [id number] [place] [address]- 4265 Apr, [facility] [place] [facility] [address] [id number] [place] [address]- 6085 Apr, [facility] [place] [facility] [address] [id number] [place] [address]- 2644 Mar, [facility] [place] [facility] [address] [id number] [place] [address]- 9571 Mar, [facility] [place] [facility] [address] [id number] [place] [address]- 5987 Mar, [facility] [place] [facility] [address] [id number] [place] [address]- 2714 Mar, [facility] [place] [facility] [address] [id number] [place] [address]- 4951 Mar, [facility] [place] [facility] [address] [id number] [place] [address]- 5109 Mar, [facility] [place] [facility] [address] [id number] [place] [address]- 6131 Mar, [facility] [place] [facility] [address] [id number] [place] [address]- 9988 Mar, [facility] [place] [facility] [address] [id number] [place] [address]- 8477 18 Mar, 2014 [facility] [place] [facility] [address] [id number] [place] [address]- 9229 18 Mar, 2014 [facility] [place] [facility] [address] [id number] [place] [address]- 4202 16 Mar, 2014 [facility] [place] [facility] [address] [id number] [place] [address]- 6956 15 Mar, 2014 [facility] [place] [facility] [address] [id number] [place] [address]- 4762 13 Mar, 2014 [facility] [place] [facility] [address] [id number] [place] [address]- 8983 Mar, [facility] [place] [facility] [address] [id number] [place] [address]- 7530 Mar, [facility] [place] [facility] [address] [id number] [place] [address]- 2239 Mar, [facility] [place] [facility] [address] [id number] [place] [address]- 4955 Mar, [facility] [place] [facility] [address] [id number] [place] [address]- 3477 Mar, [facility] [place] [facility] [address] [id number] [place] [address]- 8010 Mar, [facility] [place] [facility] [address] [id number] [place] [address]- 3449 February, [facility] [place] [facility] [address] [id number] [place] [address]- 1048 February, [facility] [place] [facility] [address] [id number] [place] [address]- 3886 Jan, [facility] [place] [facility] [address] [id number] [place] [address]- 9471 Jan, [facility] [place] [facility] [address] [id number] [place] [address]- 5204 18 Jan, 2014 [facility] [place] [facility] [address] [id number] [place] [address]- 8950 18 Jan, 2014 [facility] [place] [facility] [address] [id number] [place] [address]- 1019 17 Jan, 2014 [facility] [place] [facility] [address] [id number] [place] [address]- 4674 17 Jan, 2014 [facility] [place] [facility] [address] [id number] [place] [address]- 7469 14 Jan, 2014 [facility] [place] [facility] [address] [id number] [place] [address]- 3509 11 Jan, 2014 [facility] [place] [facility] [address] [id number] [place] [address]- 8140 10 Jan, 2014 [facility] [place] [facility] [address] [id number] [place] [address]- 2045 Jan, [facility] [place] [facility] [address] [id number] [place] [address]- 7725 17 Dec, 2013 [facility] [place] [facility] [address] [id number] [place] [address]- 6441 17 Dec, 2013 [facility] [place] [facility] [address] [id number] [place] [address]- 5705 Dec, [facility] [place] [facility] [address] [id number] [place] [address]- 9411 11 Dec, 2013 [facility] [place] [facility] [address] [id number] [place] [address]- 7115 10 Dec, 2013 [facility] [place] [facility] [address] [id number] [place] [address]- 2660 10 Dec, 2013 [facility] [place] [facility] [address] [id number] [place] [address]- 8307 07 Dec, 2013 [facility] [place] [facility] [address] [id number] [place] [address]- 7997 07 Dec, 2013 [facility] [place] [facility] [address] [id number] [place] [address]- 7999 Dec, [facility] [address] [id number] [place] [address]- 3616 Dec, [facility] [place] [facility] [address] [id number] [place] [address]- 1478 Oct, [facility] [address] [id number] [place] [address]- 0670 Oct, [facility] [place] [facility] [address] [id number] [place] [address]- 7196 Jul, [facility] [address] [id number] [place] [address]- 0500 Jul, [facility] [place] [facility] [address] [id number] [place] [address]- 4118 Jul, [facility] [address] [id number] [place] [address]- 8626 Jun, [facility] [address] [id number] [place] [address]- 8607 Jun, [facility] [place] [facility] [address] [id number] [place] [address]- 9919 Jun, [facility] [place] [facility] [address] [id number] [place] [address]- 8118 Jun, [facility] [place] [facility] [address] [id number] [place] [address]- 1943 Apr, [facility] [place] [facility] [address] [id number] [place] [address]- 4332 February, [facility] [place] [facility] [address] [id number] [place] [address]- 3952 Nov, [facility] [place] [facility] [address] [id number] [place] [address]- 7432 Nov, [facility] [place] [facility] [address] [id number] [place] [address]- 9672 Nov, [facility] [place] [facility] [address] [id number] [place] [address]- 4007 Sep, [facility] [place] [facility] [address] [id number] [place] [address]- 3214 Sep, [facility] [place] [facility] [address] [id number] [place] [address]- 8432 Sep, [facility] [place] [facility] [address] [id number] [place] [address]- 4510 Sep, [facility] [place] [facility] [address] [id number] [place] [address]- 1476 Sep, [facility] [place] [facility] [address] [id number] [place] [address]- 2149 Sep, [facility] [place] [facility] [address] [id number] [place] [address]- 9872 Sep, [facility] [place] [facility] [address] [id number] [place] [address]- 8383 Sep, [facility] [place] [facility] [address] [id number] [place] [address]- 1286 Sep, [facility] [place] [facility] [address] [facility] [id number] [place] [address]- 0470 Sep, [facility] [place] [facility] [address] [id number] [place] [address]- 4020 Aug, [facility] [place] [facility] [address] [id number], [place] [address]- 7702 Aug, [facility] [place] [facility] [address] [id number] [place] [address]- 6815 Aug, [facility] [place] [facility] [address] [id number] [place] [address]- 5147 Aug, [facility] [place] [facility] [address] [id number] [place] [address]- 9359 Aug, [facility] [place] [facility] [address] [id number] [place] [address]- 9946 Jul, [facility] [address] [id number] [place] [address]- 5009 Apr, [facility] [place] [facility] [address] [id number] [place] [address]- 5276 February, [facility] [address] [id number] [place] [address]- 5625 Jan, [facility] [place] [facility] [address] [id number] [place] [address]- 0944 Jan, [facility] [address] [id number] [place] [address], [place] [address]- 5139 Dec, [facility] [place] [facility] [address] [id number] [place] [address]- 0436 Dec, [facility] [address] [id number] [place] [address]- 1068 Oct, [facility] [address] [id number] [place] [address]- 6550 Oct, [facility] [address] [id number] [place] [address]- 8541 February, [facility] [address] [id number] [place] [address]- 0315 Sep, [facility] [address] [id number] [place] [address]- 5709 Jul, [facility] [place] [facility] [address] [id number], [place] [address]- 3746 Jul, [facility] [place] [facility] [address] [id number] [place] [address]- 7821 Jul, [facility] [place] [facility] [address] [id number] [place] [address]- 2073 17 Jun, 2010 [facility] [place] [facility] [address] [id number] [place] [address]- 3954 15 Sep, 2009 [facility] [place] [facility] [address] [facility] [id number] [place] [address]- 5846 Sep, [facility] [address] [facility] [id number], [place] [address]- 0586 Sep, [facility] [address] [facility] [id number], [place] [address]- 0248 Jun, [facility] [address] [facility] [id number], [place] [address]- 3146 10 Dec, 2008 IMMUNIZATIONS No Known Immunizations [...]
--- OUTSIDE RECORDS SUMMARY | 2018-08-17 23:55 | XMS REPORT ---
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 Role Phone ALVA BENTLEY Unavailable PROBLEMS Type Condition ICD9-CM Code RDR25-EI Code Onset Dates Condition Status SNOMED Code Problem Anxiety state, unspecified F41.1 Active 484140307 Problem Migraine without status migrainosus, not intractable, unspecified migraine type G43.909 Active 21632660 Problem Depressive disorder, not elsewhere classified F32.9 Active 63902416 Problem retirement current use of insulin Z79.4 Active 866642164 Problem Type 2 diabetes mellitus with diabetic polyneuropathy E11.42 Active 05898826 Problem Mild intermittent asthma without complication J45.20 Active 421095346 Problem Essential hypertension I10 Active 22602385 Problem Mixed hyperlipidemia E78.2 Active 973584243 Problem Hospital discharge follow-up Z09 Active 081821266 Problem Local infection of the skin and subcutaneous tissue, unspecified L08.9 Active 251931968 Problem Unspecified staphylococcus as the cause of diseases classified elsewhere B95.8 Active 53238280 Problem Chronic kidney disease, unspecified CKD stage N18.9 Active 386974211 Problem Lumbar radiculopathy, chronic M54.16 Active 118992672 ALLERGIES No Information ENCOUNTERS Encounter Location Date Diagnosis [facility] [id number] [address] Jul, [facility] [id number] [address] Jun, [facility] [address] [address] May, [facility] [id number] [address] May, [facility] [id number] [address] 115[address] May, [facility] [id number] [place] [address] 12426- 7853 May, Mixed hyperlipidemia E78.2 [facility] [id number] [place] [address] 72113- 1199 May, Type 2 diabetes mellitus with diabetic polyneuropathy E11.42 and Mixed hyperlipidemia E78.2 [facility] [id number] [place] [address] 33445- 0708 May, Type 2 diabetes mellitus with diabetic polyneuropathy E11.42 ; retirement current use of insulin Z79.4 ; Hospital discharge follow-up Z09 ; Dehydration E86.0 ; Chronic kidney disease, unspecified CKD stage N18.9 and Yeast vaginitis B37.3 [facility] [id number] [place] [address] 20520- 8646 Apr, Lumbar radiculopathy M54.16 [facility] [id number] [place] [address] 99297- 7571 Apr, Lumbar radiculopathy, chronic M54.16 ; Type 2 diabetes mellitus with diabetic polyneuropathy E11.42 ; Dysuria R30.0 and Essential hypertension I10 [place] [id number] [place] [address] 41133- 3276 Apr, Type 2 diabetes mellitus with diabetic polyneuropathy E11.42 [place] [facility] [id number] [place] [address] 90305- 5145 Apr, [place] [id number] [place] [address] 99612- 0989 Apr, [facility] [id number] [place] [address] 92370- 9576 Mar, [place] [id number] [place] [address] 77622- 9474 Mar, Anxiety state, unspecified F41.1 [facility] [id number] [place] [address] 66548- 6535 Mar, Local infection of the skin and subcutaneous tissue, unspecified L08.9 ; Unspecified staphylococcus as the cause of diseases classified elsewhere B95.8 ; Type 2 diabetes mellitus with diabetic polyneuropathy E11.42 and retirement current use of insulin Z79.4 [facility] [id number] [place] [address] 27122- 7386 Mar, Anxiety state, unspecified F41.1 and Depressive disorder, not elsewhere classified F32.9 [facility] [id number] [place] [address] 60451- 7675 February, Type 2 diabetes mellitus with diabetic polyneuropathy E11.42 ; retirement current use of insulin Z79.4 ; Essential hypertension I10 ; Anxiety state, unspecified F41.1 ; Depressive disorder, not elsewhere classified F32.9 and Dysuria R30.0 [facility] [id number] [place] [address] 26650- 3383 Jan, Type 2 diabetes mellitus with diabetic polyneuropathy E11.42 [facility] [id number] [place] [address] 11577- 0098 Jan, Type 2 diabetes mellitus with diabetic polyneuropathy E11.42 [facility] [id number] [place] [address] 36049- 4655 Jan, [facility] [id number] [place] [address] 19143 -1523 Dec, Migraine without status migrainosus, not intractable, unspecified migraine type G43.909 [place] [id number] [place] [address] 51821- 2780 Dec, Type 2 diabetes mellitus with diabetic polyneuropathy E11.42 ; 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 ; Dog bite, subsequent encounter W54.0XXD and Essential hypertension I10 [facility] [id number] [place] [address] 05341 -9486 Dec, Dog bite, initial encounter W54.0XXA [facility] [id number] [place] [address] 91518- 6659 Dec, [facility] [id number] [place] [address] 46490- 7396 Nov, [facility] [id number] [place] [address] 45455- 0266 Oct, [facility] [id number] [place] [address] 01252 -2153 Oct, Fissure in skin of foot R23.4 [facility] [id number] [place] [address] 18643- 4363 Oct, [facility] [id number] [place] [address] 96382- 9773 Oct, [facility] [id number] [place] [address] 31183- 4640 Oct, [facility] [id number] [place] [address] 32648- 3283 Oct, Type 2 diabetes mellitus with diabetic polyneuropathy E11.42 [facility] [id number] [place] [address] 37756- 2955 Oct, Anxiety state, unspecified F41.1 and Depressive disorder, not elsewhere classified F32.9 [facility] [id number] [place] [address] 13394- 6264 Oct, [facility] [id number] [place] [address] 43685- 2149 Oct, [facility] [id number] [place] [address] 91172- 0179 Sep, Essential hypertension I10 [facility] [id number] [place] [address] 26192- 5736 14 Sep, 2017 [facility] [id number] [place] [address] 92634- 0352 Sep, Type 2 diabetes mellitus with diabetic polyneuropathy E11.42 and Neuropathic ulcer of foot, unspecified laterality, unspecified ulcer stage L97.509 [facility] [address] 6[address]- 6785 Sep, Neuropathic ulcer of foot, unspecified laterality, unspecified ulcer stage L97.509 and Acute vaginitis N76.0 [facility] [address] 07115- 8598 Sep, Type 2 diabetes mellitus with diabetic polyneuropathy E11.42 ; retirement current use of insulin Z79.4 ; Essential hypertension I10 ; 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 ; Reactive depression F32.9 ; Acute vaginitis N76.0 and Mild intermittent asthma without complication J45.20 [facility] [address] 04540- 2453 17 Jul, 2017 [facility] [address] 53080 -3943 Jun, [facility] [address] 74958- 6654 May, [facility] [address] 93670 -2019 May, Cellulitis L03.90 [facility] [id number] [place] [address] 72878- 1738 Mar, [facility] [id number] [place] [address] 09242- 8752 Jan, [facility] [id number] [place] [address] 28983- 5134 Jan, [facility] [address] 844985- 4199 Sep, [facility] [id number] [place] [address] [id number]- 9361 Sep, [facility] [address] [place] [address]- 0223 Apr, 2013 [facility] [place] [facility] [address] [id number] [place] [address]- 7351 Apr, [facility] [place] [facility] [address] [id number] [place] [address]- 5860 Apr, [facility] [place] [facility] [address] [id number] [place] [address]- 2994 Apr, 2013 [facility] [place] [facility] [address] [id number] [place] [address]- 4929 Apr, [facility] [place] [facility] [address] [id number] [place] [address]- 2584 Apr, [facility] [place] [facility] [address] [id number] [place] [address]- 1824 Apr, [facility] [place] [facility] [address] [id number] [place] [address]- 8092 Apr, [facility] [place] [facility] [address] [id number] [place] [address]- 9727 Mar, [facility] [place] [facility] [address] [id number] [place] [address]- 7400 Mar, [facility] [place] [facility] [address] [id number] [place] [address]- 3796 Mar, [facility] [place] [facility] [address] [id number] [place] [address]- 8799 Mar, [facility] [place] [facility] [address] [id number] [place] [address]- 2343 Mar, [facility] [place] [facility] [address] [id number] [place] [address]- 3332 Mar, [facility] [place] [facility] [address] [id number] [place] [address]- 9479 Mar, [facility] [place] [facility] [address] [id number] [place] [address]- 8401 Mar, [facility] [place] [facility] [address] [id number] [place] [address]- 9983 18 Mar, 2014 [facility] [place] [facility] [address] [id number] [place] [address]- 0815 18 Mar, 2014 [facility] [place] [facility] [address] [id number] [place] [address]- 1565 16 Mar, 2014 [facility] [place] [facility] [address] [id number] [place] [address]- 1132 15 Mar, 2014 [facility] [place] [facility] [address] [id number] [place] [address]- 3781 13 Mar, 2014 [facility] [place] [facility] [address] [id number] [place] [address]- 2309 13 Mar, 2014 [facility] [place] [facility] [address] [id number] [place] [address]- 8569 Mar, [facility] [place] [facility] [address] [id number] [place] [address]- 0822 Mar, [facility] [place] [facility] [address] [id number] [place] [address]- 6885 Mar, [facility] [place] [facility] [address] [id number] [place] [address]- 4256 Mar, [facility] [place] [facility] [address] [id number] [place] [address]- 8846 Mar, [facility] [place] [facility] [address] [id number] [place] [address]- 8322 February, [facility] [place] [facility] [address] [id number] [place] [address]- 4173 February, [facility] [place] [facility] [address] [id number] [place] [address]- 9897 Jan, [facility] [place] [facility] [address] [id number] [place] [address]- 1059 Jan, [facility] [place] [facility] [address] [id number] [place] [address]- 0466 18 Jan, 2014 [facility] [place] [facility] [address] [id number] [place] [address]- 0378 18 Jan, 2014 [facility] [place] [facility] [address] [id number] [place] [address]- 0949 17 Jan, 2014 [facility] [place] [facility] [address] [id number] [place] [address]- 6660 17 Jan, 2014 [facility] [place] [facility] [address] [id number] [place] [address]- 9264 14 Jan, 2014 [facility] [place] [facility] [address] [id number] [place] [address]- 9989 11 Jan, 2014 [facility] [place] [facility] [address] [id number] [place] [address]- 0013 10 Jan, 2014 [facility] [place] [facility] [address] [id number] [place] [address]- 9453 Jan, [facility] [place] [facility] [address] [id number] [place] [address]- 3694 17 Dec, 2013 [facility] [place] [facility] [address] [id number] [place] [address]- 1086 17 Dec, 2013 [facility] [place] [facility] [address] [id number] [place] [address]- 2811 Dec, [facility] [place] [facility] [address] [id number] [place] [address]- 6928 11 Dec, 2013 [facility] [place] [facility] [address] [id number] [place] [address]- 3853 10 Dec, 2013 [facility] [place] [facility] [address] [id number] [place] [address]- 0772 10 Dec, 2013 [facility] [place] [facility] [address] [id number] [place] [address]- 3731 07 Dec, 2013 [facility] [place] [facility] [address] [id number] [place] [address]- 4305 07 Dec, 2013 [facility] [place] [facility] [address] [id number] [place] [address]- 0681 Dec, [facility] [address] [id number] [place] [address]- 8885 Dec, [facility] [address] [id number] [place] [address]- 2401 Oct, [facility] [address] [id number] [place] [address]- 5590 Oct, [facility] [address] [id number] [place] [address]- 1557 Jul, [facility] [address] [id number] [place] [address]- 3465 Jul, [facility] [address] [id number] [place] 8279 Jul, [facility] [address] [id number] [place] [address]- 0259 Jun, [facility] [address] [id number] [place] [address]- 0247 Jun, [facility] [address] [id number] [place] [address]- 2057 Jun, [facility] [address] [id number] [place] [address]- 6828 Jun, [facility] [place] [facility] [address] [id number] [place] [address]- 8370 Apr, [facility] [address] [id number] [place] [address]- 1524 February, [facility] [place] [facility] [address] [id number] [place] [address]- 5686 Nov, [facility] [place] [facility] [address] [id number] [place] [address]- 9496 Nov, [facility] [place] [facility] [address] [id number] [place] [address]- 5922 Nov, [facility] [place] [facility] [address] [id number] [place] [address]- 9538 Sep, [facility] [place] [facility] [address] [id number] [place] [address]- 4379 Sep, [facility] [place] [facility] [address] [id number] [place] [address]- 8620 Sep, [facility] [place] [facility] [address] [id number] [place] [address]- 7013 Sep, [facility] [place] [facility] [address] [id number] [place] [address]- 6561 Sep, [facility] [place] [facility] [address] [id number] [place] [address]- 2912 Sep, [facility] [place] [facility] [address] [facility] [id number] [place] [address]- 6209 Sep, [facility] [place] [facility] [address] [id number] [place] [address]- 2049 Sep, [facility] [place] [facility] [address] [id number] [place] [address]- 5823 Sep, [facility] [place] [facility] [address] [facility] [id number] [place] [address]- 1798 Sep, [facility] [place] [facility] [address] [id number] [place] [address]- 0471 Aug, [facility] [place] [facility] [address] [id number] [address]- 0832 Aug, [facility] [place] [facility] [address] [id number] [place] [address]- 7966 Aug, [facility] [place] [facility] [address] [id number] [place] [address]- 4247 Aug, [facility] [place] [facility] [address] [id number] [place] [address]- 4383 Aug, [facility] [place] [facility] [address] [id number] [place] [address]- 5668 Jul, [facility] [address] [id number] [place] [address]- 4988 Apr, [facility] [place] [facility] [address] [id number] [place] [address]- 9326 February, [facility] [place] [facility] [address] [id number] [place] [address]- 6157 Jan, [facility] [place] [facility] [address] [id number] [place] [address]- 5763 Jan, [facility] [place] [facility] [address] [id number] [place] [address]- 2574 Dec, [facility] [place] [facility] [address] [id number] [place] [address] 2546 Dec, [facility] [address] [id number] [place] [address]- 3027 Oct, [facility] [place] [facility] [address] [id number] [place] [address]- 0411 Oct, [facility] [place] [facility] [address] [id number] [place] [address]- 6452 February, [facility] [place] [facility] [address] [facility] [id number] [place] [address]- 7894 Sep, [facility] [place] [facility] [address] [id number] [place] [address]- 3732 Jul, [facility] [place] [facility] [address] [id number] [place] [address]- 0732 Jul, [facility] [place] [facility] [address] [id number] [place] [address]- 1676 Jul, [facility] [place] [facility] [address] [id number] [place] [address]- 3898 17 Jun, 2010 [facility] [place] [facility] [address] [facility] [id number] [place] [address]- 2131 15 Sep, 2009 [facility] [place] [facility] [address] [facility] [id number] [place] [address]- 7446 Sep, [facility] [address] [facility] [id number] [address]- 3756 Sep, [facility] [address] [facility] [id number] [address]- 7779 Jun, [facility] [address] [facility] [id number] [address]- 4612 Dec, IMMUNIZATIONS No Known Immunizations SOCIAL HISTORY [...]
--- OUTSIDE RECORDS SUMMARY | 2018-08-17 23:55 | XMS REPORT ---
Author Author ALVA BENTLEY [facility] Address [address] [place] [address] Care Team Providers Care Forging Operator Name Role Phone ALVA BENTLEY Unavailable PROBLEMS Type Condition ICD9-CM Code LFZ29-RV Code Onset Dates Condition Status SNOMED Code Problem Anxiety state, unspecified F41.1 Active 066888065 Problem Migraine without status migrainosus, not intractable, unspecified migraine type G43.909 Active 97257473 Problem Depressive disorder, not elsewhere classified F32.9 Active 28912619 Problem senior living current use of insulin Z79.4 Active 897241606 Problem Type 2 diabetes mellitus with diabetic polyneuropathy E11.42 Active 50447228 Problem Mild intermittent asthma without complication J45.20 Active 976147286 Problem Essential hypertension I10 Active 06604437 Problem Mixed hyperlipidemia E78.2 Active 639605294 Problem Hospital discharge follow-up Z09 Active 716785550 Problem Local infection of the skin and subcutaneous tissue, unspecified L08.9 Active 240125009 Problem Unspecified staphylococcus as the cause of diseases classified elsewhere B95.8 Active 62002999 Problem Chronic kidney disease, unspecified CKD stage N18.9 Active 506185372 Problem Lumbar radiculopathy, chronic M54.16 Active 895450926 ALLERGIES No Information ENCOUNTERS Encounter Location Date Diagnosis [facility] [id number] [address] May, [facility] [address] [address] May, [facility] [id number] [place] [address] 25894- 1862 May, [facility] [address], [place] [address] May, Mixed hyperlipidemia E78.2 [facility] [id number] [place] [address] 66025- 6116 16 May, 2018 Type 2 diabetes mellitus with diabetic polyneuropathy E11.42 and Mixed hyperlipidemia E78.2 [place] [id number] [place] [address] 98307- 9328 15 May, 2018 Type 2 diabetes mellitus with diabetic polyneuropathy E11.42 ; 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 ; Hospital discharge follow-up Z09 ; Dehydration E86.0 ; Chronic kidney disease, unspecified CKD stage N18.9 and Yeast vaginitis B37.3 [place] [id number] [place] [address] 01813- 7458 Apr, Lumbar radiculopathy M54.16 [place] [id number] [place] [address] 26377- 9945 Apr, Lumbar radiculopathy, chronic M54.16 ; Type 2 diabetes mellitus with diabetic polyneuropathy E11.42 ; Dysuria R30.0 and Essential hypertension I10 [place] [id number] [place] [address] 45856- 9131 Apr, Type 2 diabetes mellitus with diabetic polyneuropathy E11.42 [place] [id number] [place] [address] 29872- 1441 Apr, [place] [id number] [place] [address] 99857- 1077 Apr, [place] [id number] [place] [address] 31301- 8014 Mar, [place] [id number] [place] [address] 15390- 0680 Mar, Anxiety state, unspecified F41.1 [place] [id number] [place] [address] 18950- 3449 Mar, Local infection of the skin and subcutaneous tissue, unspecified L08.9 ; Unspecified staphylococcus as the cause of diseases classified elsewhere B95.8 ; Type 2 diabetes mellitus with diabetic polyneuropathy E11.42 and senior living current use of insulin Z79.4 [place] [id number] [place] [address] 38906- 5150 Mar, [facility] [id number] [place] [address] 32455- 7485 February, Type 2 diabetes mellitus with diabetic polyneuropathy E11.42 ; 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 ; Essential hypertension I10 ; Anxiety state, unspecified F41.1 ; Depressive disorder, not elsewhere classified F32.9 and Dysuria R30.0 [place] [id number] [place] [address] 08877- 0735 Jan, Type 2 diabetes mellitus with diabetic polyneuropathy E11.42 [place] [id number] [place] [address] 71311- 0920 Jan, Type 2 diabetes mellitus with diabetic polyneuropathy E11.42 [place] [address] [address]- 5619 Jan, [facility] [id number] [place] [address] 04409 -4596 Dec, Migraine without status migrainosus, not intractable, unspecified migraine type G43.909 [place] [id number] [place] [address] 00074- 3599 Dec, Type 2 diabetes mellitus with diabetic polyneuropathy E11.42 ; 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 ; Dog bite, subsequent encounter W54.0XXD and Essential hypertension I10 [facility] [id number] [place] [address] 49147 -1372 Dec, Dog bite, initial encounter W54.0XXA [place] [id number] [place] [address] 86728- 0058 Dec, [facility] [id number] [place] [address] 96452- 3627 Nov, [place] [address] [place] [address]- 5398 Oct, [facility] [id number] [place] [address] 50013 -0363 Oct, Fissure in skin of foot R23.4 [facility] [address] [place] [address] 96047- 2580 Oct, [facility] [id number] [place] [address] 75039- 1430 Oct, [facility] [id number] [place] [address] 70356- 1055 Oct, [facility] [id number] [place] [address] 76913- 5314 Oct, Type 2 diabetes mellitus with diabetic polyneuropathy E11.42 [facility] [id number] [place] [address] 11426- 2627 Oct, Anxiety state, unspecified F41.1 and Depressive disorder, not elsewhere classified F32.9 [facility] [id number] [place] [address] 59790- 7339 Oct, [facility] [id number] [place] [address] 96413- 7321 Oct, [facility] [address] [place] [address] 63423- 8774 Sep, Essential hypertension I10 [facility] [id number] [place] [address] 56505- 2371 14 Sep, 2017 [facility] [address] [place] [address] 15840- 5235 Sep, Type 2 diabetes mellitus with diabetic polyneuropathy E11.42 and Neuropathic ulcer of foot, unspecified laterality, unspecified ulcer stage L97.509 [facility] [address], [place] [address]- 7178 Sep, Neuropathic ulcer of foot, unspecified laterality, unspecified ulcer stage L97.509 and Acute vaginitis N76.0 [facility] [address], [place] [address]- 7609 12 Sep, 2017 Type 2 diabetes mellitus with diabetic polyneuropathy E11.42 ; senior living current use of insulin Z79.4 ; Essential hypertension I10 ; 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 ; Reactive depression F32.9 ; Acute vaginitis N76.0 and Mild intermittent asthma without complication J45.20 [facility] [id number] [place] [address] 06937- 8812 17 Jul, 2017 [facility] [id number] [place] [address] 26220 -5165 Jun, [facility] [id number] [place] [address] 86815- 3861 May, [facility] [id number] [place] [address] 45312 -4350 May, Cellulitis L03.90 [facility] [id number] [place] [address] 42773- 4569 Mar, [facility] [id number] [place] [address] 60684- 6042 Jan, [facility] [id number] [place] [address] 73557- 5884 Jan, [facility] [id number] [place] [address] 22729- 8549 Sep, [facility] [id number] [place] [address] 90463- 6492 Sep, [facility] [id number] [place] [address] 004215- 5920 Apr, [facility] [id number] [place] [address] 417505- 2521 Apr, [facility] [id number] [place] [address] 630189- 6818 Apr, [facility] [place] [facility] [address] [id number] [place] [address]- 1754 Apr, 2013 [facility] [place] [facility] [address] [id number] [place] [address]- 6796 Apr, [facility] [place] [facility] [address] [id number] [place] [address]- 3648 Apr, [facility] [place] [facility] [address] [id number] [place] [address]- 6418 Apr, [facility] [place] [facility] [address] [id number] [place] [address]- 2710 Apr, [facility] [place] [facility] [address] [id number] [place] [address]- 3395 Mar, [facility] [place] [facility] [address] [id number] [place] [address]- 9734 Mar, [facility] [place] [facility] [address] [id number] [place] [address]- 9759 Mar, [facility] [place] [facility] [address] [id number] [place] [address]- 8643 Mar, [facility] [place] [facility] [address] [id number] [place] [address]- 2495 Mar, [facility] [place] [facility] [address] [id number] [place] [address]- 3040 Mar, [facility] [place] [facility] [address] [id number] [place] [address]- 5785 Mar, [facility] [place] [facility] [address] [id number] [place] [address]- 7998 Mar, [facility] [place] [facility] [address] [id number] [place] [address]- 0502 Mar, [facility] [place] [facility] [address] [id number] [place] [address]- 3141 Mar, [facility] [place] [facility] [address] [id number] [place] [address]- 4860 16 Mar, 2014 [facility] [place] [facility] [address] [id number] [place] [address]- 0360 15 Mar, 2014 [facility] [place] [facility] [address] [id number] [place] [address]- 5562 13 Mar, 2014 [facility] [place] [facility] [address] [id number] [place] [address]- 2373 Mar, [facility] [place] [facility] [address] [id number] [place] [address]- 0809 11 Mar, 2014 [facility] [place] [facility] [address] [id number] [place] [address]- 5583 Mar, [facility] [place] [facility] [address] [id number] [place] [address]- 8395 Mar, [facility] [place] [facility] [address] [id number] [place] [address]- 5604 Mar, [facility] [place] [facility] [address] [id number] [place] [address]- 4655 Mar, [facility] [place] [facility] [address] [id number] [place] [address]- 0556 February, [facility] [place] [facility] [address] [id number] [place] [address]- 9426 February, [facility] [place] [facility] [address] [id number] [place] [address]- 9209 24 Jan, 2014 [facility] [place] [facility] [address] [id number] [place] [address]- 1618 24 Jan, 2014 [facility] [place] [facility] [address] [id number] [place] [address]- 4364 18 Jan, 2014 [facility] [place] [facility] [address] [id number] [place] [address]- 0118 18 Jan, 2014 [facility] [place] [facility] [address] [id number] [place] [address]- 5247 17 Jan, 2014 [facility] [place] [facility] [address] [id number] [place] [address]- 3772 17 Jan, 2014 [facility] [address] [id number] [place] [address]- 8489 14 Jan, 2014 [facility] [place] [facility] [address] [id number] [place] [address]- 0829 11 Jan, 2014 [facility] [address] [id number] [place] [address]- 8869 10 Jan, 2014 [facility] [place] [facility] [address] [id number] [place] [address]- 2661 10 Jan, 2014 [facility] [address] [id number] [place] [address]- 8725 17 Dec, 2013 [facility] [place] [facility] [address] [id number] [place] [address]- 5190 17 Dec, 2013 [facility] [place] [facility] [address] [id number] [place] [address]- 1537 Dec, [facility] [place] [facility] [address] [id number] [place] [address]- 4229 11 Dec, 2013 [facility] [place] [facility] [address] [id number] [place] [address]- 2954 Dec, [facility] [address] [id number] [place] [address]- 1787 10 Dec, 2013 [facility] [place] [facility] [address] [id number] [place] [address]- 2038 07 Dec, 2013 [facility] [place] [facility] [address] [id number] [place] [address]- 1189 07 Dec, 2013 [facility] [place] [facility] [address] [id number] [place] [address]- 3329 03 Dec, 2013 [facility] [place] [facility] [address] [id number] [place] [address]- 5396 Dec, [facility] [place] [facility] [address] [id number] [place] [address]- 9537 Oct, [facility] [address] [id number] [place] [address]- 2682 Oct, [facility] [place] [facility] [address] [id number] [place] [address]- 0297 Jul, [facility] [place] [facility] [address] [id number] [place] 7959 Jul, [facility] [place] [facility] [address] [id number] [place] [address]- 0319 Jul, [facility] [address] [id number] [place] [address]- 2014 Jun, [facility] [place] [facility] [address] [id number] [place] [address]- 2950 Jun, [facility] [place] [facility] [address] [id number] [place] [address]- 7791 Jun, [facility] [place] [facility] [address] [id number] [place] [address]- 9494 Jun, [facility] [place] [facility] [address] [id number] [place] [address]- 3186 Apr, [facility] [place] [facility] [address] [id number] [place] [address]- 2933 February, [facility] [place] [facility] [address] [id number] [place] [address]- 5454 Nov, [facility] [place] [facility] [address] [id number] [address]- 9097 Nov, [facility] [place] [facility] [address] [id number] [place] [address]- 7849 Nov, [facility] [place] [facility] [address] [id number] [place] [address]- 5846 Sep, [facility] [place] [facility] [address] [id number] [place] [address]- 4258 Sep, [facility] [place] [facility] [address] [id number] [place] [address]- 2177 18 Sep, 2012 [facility] [place] [facility] [address] [id number] [place] 0658 18 Sep, 2012 [facility] [place] [facility] [address] [id number] [place] 6806 Sep, [facility] [place] [facility] [address] [id number] [place] [address]- 9926 Sep, [facility] [place] [facility] [address] [id number] [place] [address]- 9257 Sep, [facility] [place] [facility] [address] [id number] [place] [address]- 8968 Sep, [facility] [place] [facility] [address] [id number] [place] [address]- 4368 Sep, [facility] [place] [facility] [address] [id number] [place] [address]- 5180 Sep, [facility] [place] [facility] [address] [id number] [place] [address]- 8425 Aug, [facility] [place] [facility] [address] [id number] [place] [address]- 5260 Aug, [facility] [place] [facility] [address] [facility] [id number] [place] [address]- 0618 Aug, [facility] [place] [facility] [address] [id number] [place] [address]- 7912 Aug, [facility] [place] [facility] [address] [id number] [place] [address]- 7860 Aug, [facility] [place] [facility] [address] [id number] [place] [address]- 4251 Jul, [facility] [place] [facility] [address] [id number] [place] [address]- 0350 Apr, [facility] [place] [facility] [address] [facility] [id number] [place] [address]- 3603 February, [facility] [place] [facility] [address] [id number] [place] [address]- 0958 Jan, [facility] [address] [id number] [place] [address]- 1943 Jan, [facility] [place] [facility] [address] [id number] [place] [address]- 1586 Dec, [facility] [place] [facility] [address] [id number] [place] [address]- 4927 Dec, [facility] [place] [facility] [address] [id number] [place] [address]- 3077 Oct, [facility] [place] [facility] [address] [id number] [place] [address]- 7194 Oct, [facility] [address] [id number] [place] [address]- 1452 February, [facility] [address] [id number] [place] [address]- 5936 Sep, [facility] [address] [id number] [place] [address]- 1202 Jul, [facility] [address] [id number] [place] [address]- 2434 Jul, [facility] [place] [facility] [address] [id number] [place] [address]- 0472 Jul, [facility] [address] [id number] [place] [address]- 6874 17 Jun, 2010 [facility] [place] [facility] [address] [id number] [place] [address]- 0200 15 Sep, 2009 [facility] [place] [facility] [address] [id number] [place] [address]- 5886 Sep, [facility] [place] [facility] [address] [id number] [place] [address]- 7390 09 Sep, 2009 [facility] [place] [facility] [address] [id number] [place] [address]- 3653 Jun, [facility] [address] [facility] [id number] [place] [address]- 6563 Dec, IMMUNIZATIONS No Known Immunizations SOCIAL HISTORY Never Assessed REASON FOR VISIT Med concerns PLAN OF CARE VITAL SIGNS MEDICATIONS Medication Instructions Dosage Frequency Start Date End Date Duration Status Levemir Flexpen 100 unit/mL (3 mL) subcutaneously Once a day 15 UnITS 24h Mar, Active Celexa 40 MG Orally Once a day 1 tablet 24h 30 days Active RESULTS No Results PROCEDURES No Known procedures INSTRUCTIONS MEDICATIONS ADMINISTERED No Known Medications MEDICAL (GENERAL) HISTORY Type Description Date Medical History diabetes type 1 Medical History hypertension Medical History asthma Medical History depression Medical History Diabetic Macular Edema Surgical History 1985, 1988, 1991, 1994 Hospitalization History multiple
--- OUTSIDE RECORDS SUMMARY | 2018-08-17 23:55 | XMS REPORT ---
Author Author ALVA BENTLEY [facility] Address [address] [place] [address] Care Team Providers Care Instructional Technologist Name Role Phone ALVA BENTLEY Unavailable PROBLEMS Type Condition ICD9-CM Code OMC39-IW Code Onset Dates Condition Status SNOMED Code Problem Anxiety state, unspecified F41.1 Active 086658220 Problem Migraine without status migrainosus, not intractable, unspecified migraine type G43.909 Active 17561430 Problem Depressive disorder, not elsewhere classified F32.9 Active 65158241 Problem long-term current use of insulin Z79.4 Active 028041761 Problem Type 2 diabetes mellitus with diabetic polyneuropathy E11.42 Active 65229847 Problem Mild intermittent asthma without complication J45.20 Active 620317122 Problem Essential hypertension I10 Active 17602749 Problem Mixed hyperlipidemia E78.2 Active 600365204 Problem Hospital discharge follow-up Z09 Active 417624574 Problem Local infection of the skin and subcutaneous tissue, unspecified L08.9 Active 648450557 Problem Unspecified staphylococcus as the cause of diseases classified elsewhere B95.8 Active 81218445 Problem Chronic kidney disease, unspecified CKD stage N18.9 Active 220910205 Problem Lumbar radiculopathy, chronic M54.16 Active 046956442 ALLERGIES Substance Reaction Event Type Date Status Metformin HCl Unknown Drug Allergy Apr, Active Ketorolac Tromethamine nausea Drug Allergy Apr, Active Hydrocodone Bitartrate hives Drug Allergy Apr, Active Biaxin Unknown Drug Allergy Apr, Active Amoxicillin Yeast Infections Drug Allergy Apr, Active ENCOUNTERS Encounter Location Date Diagnosis [facility] [address] [facility] [id number] [address] Jul, [facility] [address] [facility] [id number] [address] May, [facility] [address] [place] [place] [id number] [place] [address] 45545- 3072 May, [facility] [id number] [place] [address] 89601- 4163 May, [facility] [id number] [place] [address] 62689- 4226 May, Mixed hyperlipidemia E78.2 [place] [address] [address]- 4547 May, Type 2 diabetes mellitus with diabetic polyneuropathy E11.42 and Mixed hyperlipidemia E78.2 [place] [address] [place] [id number] [place] [address] 37241- 0994 May, Type 2 diabetes mellitus with diabetic polyneuropathy E11.42 ; technician terminal and repeater current use of insulin Z79.4 ; Hospital discharge follow-up Z09 ; Dehydration E86.0 ; Chronic kidney disease, unspecified CKD stage N18.9 and Yeast vaginitis B37.3 [place] [id number] [place] [address] 66368- 8487 Apr, Lumbar radiculopathy M54.16 [place] [address] [place] [id number] [place] [address] 89203- 9451 Apr, Lumbar radiculopathy, chronic M54.16 ; Type 2 diabetes mellitus with diabetic polyneuropathy E11.42 ; Dysuria R30.0 and Essential hypertension I10 [place] [address] [place] [id number] [place] [address] 70803- 2468 Apr, Type 2 diabetes mellitus with diabetic polyneuropathy E11.42 [place] [address] [place] [place] [id number] [place] [address] 50931- 5104 Apr, [facility] [address] [address]- 7454 Apr, [facility] [id number] [place] [address] 73584- 5969 Mar, [facility] [id number] [place] [address] 07517- 9435 Mar, Anxiety state, unspecified F41.1 [place] [id number] [place] [address] 43688- 6999 Mar, Local infection of the skin and subcutaneous tissue, unspecified L08.9 ; Unspecified staphylococcus as the cause of diseases classified elsewhere B95.8 ; Type 2 diabetes mellitus with diabetic polyneuropathy E11.42 and long-term current use of insulin Z79.4 [place] [id number] [place] [address] 39815- 8517 Mar, Anxiety state, unspecified F41.1 and Depressive disorder, not elsewhere classified F32.9 [place] [address] [id number] [place] [address] 68837- 7931 February, Type 2 diabetes mellitus with diabetic polyneuropathy E11.42 ; technician terminal and repeater current use of insulin Z79.4 ; Essential hypertension I10 ; Anxiety state, unspecified F41.1 ; Depressive disorder, not elsewhere classified F32.9 and Dysuria R30.0 [place] [id number] [place] [address] 83194- 9340 Jan, Type 2 diabetes mellitus with diabetic polyneuropathy E11.42 [place] [id number] [place] [address] 15769- 7007 Jan, Type 2 diabetes mellitus with diabetic polyneuropathy E11.42 [place] [id number] [place] [address] 23202- 1524 Jan, [facility] [place] [id number] [place] [address] 95963 -9996 Dec, Migraine without status migrainosus, not intractable, unspecified migraine type G43.909 [place] [id number] [place] [address] 58881- 4146 Dec, Type 2 diabetes mellitus with diabetic polyneuropathy E11.42 ; technician terminal and repeater current use of insulin Z79.4 ; Dog bite, subsequent encounter W54.0XXD and Essential hypertension I10 [facility] [address] [address] Dec, Dog bite, initial encounter W54.0XXA [facility] [address] 32741- 1631 Dec, [facility] [id number] [place] [address] 04359- 9573 Nov, [facility] [id number] [place] [address] 97095- 7061 Oct, [facility] [id number] [place] [address] 59165 -7250 Oct, Fissure in skin of foot R23.4 [facility] [id number] [place] [address] 12984- 6668 Oct, [facility] [id number] [place] [address] 34489- 0699 Oct, [facility] [id number] [place] [address] 06918- 3877 Oct, [facility] [id number] [place] [address] 07973- 7578 Oct, Type 2 diabetes mellitus with diabetic polyneuropathy E11.42 [place] [address] [id number] [place] [address] 01087- 1655 Oct, Anxiety state, unspecified F41.1 and Depressive disorder, not elsewhere classified F32.9 [facility] [id number] [place] [address] 15634- 0689 Oct, [facility] [id number] [place] [address] 76427- 3877 Oct, [facility] [id number] [place] [address] 99549- 5741 Sep, Essential hypertension I10 [place] [address] [id number] [place] [address] 82026- 2729 14 Sep, 2017 [facility] [id number] [place] [address] 15370- 0462 13 Sep, 2017 Type 2 diabetes mellitus with diabetic polyneuropathy E11.42 and Neuropathic ulcer of foot, unspecified laterality, unspecified ulcer stage L97.509 [facility] [id number] [place] [address] 59181- 4583 13 Sep, 2017 Neuropathic ulcer of foot, unspecified laterality, unspecified ulcer stage L97.509 and Acute vaginitis N76.0 [place] [address] [id number] [place] [address] 09692- 1689 12 Sep, 2017 Type 2 diabetes mellitus with diabetic polyneuropathy E11.42 ; long-term current use of insulin Z79.4 ; Essential hypertension I10 ; 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 ; Reactive depression F32.9 ; Acute vaginitis N76.0 and Mild intermittent asthma without complication J45.20 [place] [address] 50660- 4092 17 Jul, 2017 [facility] [id number] [place] [address] 93555 -4256 Jun, [place] [address] [place] [address] [id number] [place] [address] 42089- 4788 May, [facility] [id number] [place] [address] 65092 -6546 May, Cellulitis L03.90 [place] [id number] [place] [address] 40645- 3455 Mar, [place] [address] [place] [address] [id number] [place] [address] 67055- 2638 Jan, [place] [address] 20126- 7492 Jan, [place] [address] [place] [id number] [place] [address] 12645- 2190 Sep, [place] [address] [place] [address]- 6884 Sep, [facility] [place] [facility] [address] [id number] [place] [address]- 7240 Apr, [facility] [place] [facility] [address] [id number] [place] [address]- 5987 Apr, [facility] [place] [facility] [address] [id number] [place] [address]- 4747 Apr, [facility] [place] [facility] [address] [id number] [place] [address]- 3641 Apr, [facility] [place] [facility] [address] [id number] [place] [address]- 8010 Apr, [facility] [place] [facility] [address] [id number] [place] [address]- 3965 Apr, [facility] [place] [facility] [address] [id number] [place] [address]- 5403 Apr, [facility] [place] [facility] [address] [id number] [place] [address]- 1727 Apr, [facility] [place] [facility] [address] [id number] [place] [address]- 2521 Mar, [facility] [place] [facility] [address] [id number] [place] [address]- 4762 Mar, [facility] [place] [facility] [address] [id number] [place] [address]- 4630 Mar, [facility] [place] [facility] [address] [id number] [place] [address]- 4169 Mar, [facility] [place] [facility] [address] [id number] [place] [address]- 4221 Mar, [facility] [place] [facility] [address] [id number] [place] [address]- 1368 Mar, [facility] [place] [facility] [address] [id number] [place] [address]- 9898 Mar, [facility] [place] [facility] [address] [id number] [place] [address]- 2651 19 Mar, 2014 [facility] [place] [facility] [address] [id number] [place] [address]- 0281 Mar, [facility] [place] [facility] [address] [id number] [place] [address]- 9990 18 Mar, 2014 [facility] [place] [facility] [address] [id number] [place] [address]- 0744 16 Mar, 2014 [facility] [place] [facility] [address] [id number] [place] [address]- 4049 15 Mar, 2014 [facility] [place] [facility] [address] [id number] [place] [address]- 5938 Mar, [facility] [place] [facility] [address] [id number] [place] [address]- 6692 Mar, [facility] [place] [facility] [address] [id number] [place] [address]- 8016 Mar, [facility] [place] [facility] [address] [id number] [place] [address]- 1862 Mar, [facility] [place] [facility] [address] [id number] [place] [address]- 4391 Mar, [facility] [place] [facility] [address] [id number] [place] [address]- 7127 Mar, [facility] [place] [facility] [address] [id number] [place] [address]- 1681 Mar, [facility] [place] [facility] [address] [id number] [place] [address]- 4330 February, [facility] [place] [facility] [address] [id number] [place] [address]- 7957 February, [facility] [place] [facility] [address] [id number] [place] [address]- 4378 24 Jan, 2014 [facility] [place] [facility] [address] [id number] [place] [address]- 2632 24 Jan, 2014 [facility] [place] [facility] [address] [id number] [place] [address]- 8362 18 Jan, 2014 [facility] [place] [facility] [address] [id number] [place] [address]- 2978 18 Jan, 2014 [facility] [place] [facility] [address] [id number] [place] [address]- 6281 17 Jan, 2014 [facility] [place] [facility] [address] [id number] [place] [address]- 7583 17 Jan, 2014 [facility] [place] [facility] [address] [id number] [place] [address]- 0669 14 Jan, 2014 [facility] [place] [facility] [address] [id number] [place] [address]- 9839 11 Jan, 2014 [facility] [place] [facility] [address] [id number] [place] [address]- 1823 10 Jan, 2014 [facility] [place] [facility] [address] [id number] [place] [address]- 3355 10 Jan, 2014 [facility] [place] [facility] [address] [id number] [place] [address]- 8316 17 Dec, 2013 [facility] [place] [facility] [address] [id number] [place] [address]- 6408 17 Dec, 2013 [facility] [place] [facility] [address] [id number] [place] [address]- 2518 11 Dec, 2013 [facility] [place] [facility] [address] [id number] [place] [address]- 4849 11 Dec, 2013 [facility] [place] [facility] [address] [id number] [place] [address]- 0958 10 Dec, 2013 [facility] [place] [facility] [address] [id number] [place] [address]- 8690 10 Dec, 2013 [facility] [place] [facility] [address] [id number] [place] [address]- 2344 07 Dec, 2013 [facility] [place] [facility] [address] [id number] [place] [address]- 8938 Dec, [facility] [address] [id number] [place] [address]- 6818 Dec, [facility] [place] [facility] [address] [id number] [place] [address]- 8774 Dec, [facility] [address] [id number] [place] [address]- 0099 Oct, [facility] [address] [id number] [place] [address]- 8808 Oct, [facility] [address] [id number] [place] [address]- 6988 Jul, [facility] [address] [id number] [place] [address]- 3748 Jul, [facility] [address] [id number] [place] [address]- 6477 Jul, [facility] [address] [id number] [place] [address]- 0406 Jun, [facility] [place] [facility] [address] [id number] [place] [address]- 7215 Jun, [facility] [address] [id number] [place] [address]- 2036 Jun, [facility] [place] [facility] [address] [id number] [place] [address]- 7729 24 Jun, 2013 [facility] [place] [facility] [address] [id number] [place] [address]- 8132 Apr, [facility] [place] [facility] [address] [id number] [place] [address]- 7446 February, [facility] [place] [facility] [address] [id number] [place] [address]- 9053 Nov, [facility] [place] [facility] [address] [id number] [place] [address]- 2909 Nov, [facility] [place] [facility] [address] [id number] [place] [address]- 1026 14 Nov, 2012 [facility] [place] [facility] [address] [id number] [place] [address]- 6696 19 Sep, 2012 [facility] [place] [facility] [address] [id number] [place] [address]- 7916 19 Sep, 2012 [facility] [place] [facility] [address] [id number] [place] [address]- 6336 18 Sep, 2012 [facility] [place] [facility] [address] [id number] [place] [address]- 5436 18 Sep, 2012 [facility] [place] [facility] [address] [id number] [place] [address]- 5776 Sep, [facility] [place] [facility] [address] [id number] [place] [address]- 7556 Sep, [facility] [place] [facility] [address] [id number] [place] [address]- 4017 07 Sep, 2012 [facility] [place] [facility] [address] [id number] [place] [address]- 6596 Sep, [facility] [place] [facility] [address] [facility] [id number] [place] [address]- 0856 06 Sep, 2012 [facility] [place] [facility] [address] [id number] [place] [address]- 6516 Sep, [facility] [place] [facility] [address] [id number] [place] [address]- 3387 Aug, [facility] [place] [facility] [address] [id number] [place] [address]- 0926 Aug, [facility] [place] [facility] [address] [id number] [place] [address]- 5466 Aug, [facility] [place] [facility] [address] [id number] [place] [address]- 4196 Aug, [facility] [place] [facility] [address] [id number] [place] [address]- 0032 Aug, [facility] [address] [id number] [place] [address]- 8911 Jul, [facility] [place] [facility] [address] [id number] [place] [address]- 8406 Apr, [facility] [place] [facility] [address] [id number] [place] [address]- 3706 February, [facility] [place] [facility] [address] [id number] [place] [address]- 4388 Jan, [facility] [address] [id number] [place] [address], [place] [address]- 2969 Jan, [facility] [place] [facility] [address] [id number] [place] [address]- 1507 Dec, [facility] [address] [id number] [place] [address]- 0233 Dec, [facility] [place] [facility] [address] [id number] [place] [address]- 2909 Oct, [facility] [address] [id number] [place] [address]- 0715 Oct, [facility] [address] [id number] [place] [address]- 5690 February, [facility] [address] [id number] [place] [address]- 0429 Sep, [facility] [place] [facility] [address] [id number] [address]- 3272 Jul, [facility] [place] [facility] [address] [id number] [place] [address]- 7100 Jul, [facility] [place] [facility] [address] [id number] [place] [address]- 6031 Jul, [facility] [place] [facility] [address] [id number] [place] [address]- 6304 Jun, [facility] [place] [facility] [address] [facility] [id number] [address]01 Sep, [facility] [address] [facility] [id number] [address] Sep, [facility] [address] [facility] [id number] [address]- 9234 Sep, [facility] [address] [facility] [id number] 3042 Jun, [facility] [address] [facility] [id number] [address] Dec, IMMUNIZATIONS No Known Immunizations SOCIAL HISTORY Never Assessed REASON FOR VISIT Pain (acute)back/leg/weakness, PT reports having weakness/dizzyness that have worsened the last few months. PT notes she has been taking her insulin as soon as she eats anything but the numbes have been staying under 300.- Vikas MELISSA , PT notes she has been having urination issues, ran a UA during the visit. - Vikas MELISSA , PT reports she needs labs done -Vikas MELISSA PLAN OF CARE Activity Details Follow Up Regular appt Reason: VITAL SIGNS Height 64 in 2018-05-01 Weight 215 lbs 2018-05-01 Temperature 98.7 degrees Fahrenheit 2018-05-01 Heart Rate 86 bpm 2018-05-01 Respiratory Rate 18 2018-05-01 Oximetry 98 % 2018-05-01 BMI 36.90 kg/m2 2018-05-01 Blood pressure systolic 138 mmHg 2018-05-01 Blood pressure diastolic 88 mmHg 2018-05-01 MEDICATIONS Medication Instructions Dosage Frequency Start Date End Date Duration Status Gabapentin 300 MG Orally 3 times a day 1 capsule 8h Dec, 90 days Active Lorazepam 1 MG Orally twice a day, prnanxiety 1 Sep, 28 days Active Lisinopril 20 mg Orally Once a day 1 tablet 24h 180 days Active Glucocard Expression Monitor w/Device as directed Sep, Active Metoclopramide HCl 10 mg Orally 3 times a day 0.5 tablet 8h Active Metoprolol Succinate ER 25 MG Orally Once a day 1 tablet 24h Active Aleve 220 MG Orally every 12 hrs 1 tablet with food or milk as needed 12h Not-Taking Humalog KwikPen 100 unit/mL Subcutaneous 3 times a day inject 15 UnITS by Subcutaneous route as per insulin sliding scale protocol 3 times per day BEFORE MEALS 8h Mar, Active Glucocard Expression Test - In Vitro 3 times a day test strips 8h Sep, Active Ventolin HFA 108 (90 Base) MCG/ACT Inhalation every 6 hrs 2 puffs as needed 6h Sep, Active Levemir 100 UNIT/ML Subcutaneous once a day Inject 15 units 24h 28 Active Celexa 40 MG Orally Once a day 1 tablet 24h 30 days Active NovoFine 30G X 8 MM subcutaneously use with insulin use to inject insulin Nov, Not-Taking Levemir Flexpen 100 unit/mL (3 mL) subcutaneously Once a day 15 UnITS 24h Mar, Active Acetaminophen Extra Strength Active RESULTS Name Result Date Reference Range UA LONG DIP (IN HOUSE) 2018-05-01 Lot # [id number] Exp date 01/2019 Clarity CLEAR Color YELLOW Odor NONE GLU 3+ ISAÍAS negative KET negative SG 1.015 BLO Negative pH 5.5 Protein negative URO 0.2 NIT negative COLIN negative Lot # Exp date MRI : Lumbar w/o contrast 2018-05-06 PROCEDURES Procedure Date Ordered Result Body Site URINALYSIS, AUTO, W/O SCOPE May 01, 2018 INSTRUCTIONS MEDICATIONS ADMINISTERED No Known Medications MEDICAL (GENERAL) HISTORY Type Description Date Medical History diabetes type 1 Medical History hypertension Medical History asthma Medical History depression Medical History Diabetic Macular Edema Surgical History 1985, 1988, 1991, 1994 Hospitalization History multiple
--- OUTSIDE RECORDS SUMMARY | 2018-08-17 23:56 | XMS REPORT ---
Author Author ALVA BENTLEY [facility] Address [address] [place] [address] Care Team Providers Care City Administrator Name Role Phone ALVA BENTLEY Unavailable PROBLEMS Type Condition ICD9-CM Code VQM01-MU Code Onset Dates Condition Status SNOMED Code Problem Anxiety state, unspecified F41.1 Active 236545238 Problem Migraine without status migrainosus, not intractable, unspecified migraine type G43.909 Active 88300999 Problem Depressive disorder, not elsewhere classified F32.9 Active 94512832 Problem intermediate current use of insulin Z79.4 Active 960462738 Problem Type 2 diabetes mellitus with diabetic polyneuropathy E11.42 Active 81602284 Problem Mild intermittent asthma without complication J45.20 Active 020221027 Problem Essential hypertension I10 Active 01840591 Problem Mixed hyperlipidemia E78.2 Active 002249596 Problem Hospital discharge follow-up Z09 Active 994457408 Problem Local infection of the skin and subcutaneous tissue, unspecified L08.9 Active 044656979 Problem Unspecified staphylococcus as the cause of diseases classified elsewhere B95.8 Active 23278755 Problem Chronic kidney disease, unspecified CKD stage N18.9 Active 424435990 Problem Lumbar radiculopathy, chronic M54.16 Active 468675990 ALLERGIES No Information ENCOUNTERS Encounter Location Date Diagnosis [facility] [id number] [address] May, [facility] [id number] [address] May, [facility] [id number] [place] [address] 92314- 4867 May, [facility] [address] [address] May, Mixed hyperlipidemia E78.2 [facility] [id number] [place] [address] 12924- 0076 16 May, 2018 Type 2 diabetes mellitus with diabetic polyneuropathy E11.42 and Mixed hyperlipidemia E78.2 [facility] [id number] [place] [address] 40869- 7841 15 May, 2018 Type 2 diabetes mellitus with diabetic polyneuropathy E11.42 ; 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 ; Hospital discharge follow-up Z09 ; Dehydration E86.0 ; Chronic kidney disease, unspecified CKD stage N18.9 and Yeast vaginitis B37.3 [place] [id number] [place] [address] 59747- 5323 Apr, Lumbar radiculopathy M54.16 [facility] [id number] [place] [address] 89087- 3806 Apr, Lumbar radiculopathy, chronic M54.16 ; Type 2 diabetes mellitus with diabetic polyneuropathy E11.42 ; Dysuria R30.0 and Essential hypertension I10 [place] [id number] [place] [address] 80710- 1738 Apr, Type 2 diabetes mellitus with diabetic polyneuropathy E11.42 [facility] [id number] [place] [address] 50849- 3897 Apr, [facility] [id number] [place] [address] 42042- 0318 Apr, [place] [id number] [place] [address] 01019- 0456 Mar, [facility] [id number] [place] [address] 56015- 7823 Mar, Anxiety state, unspecified F41.1 [place] [id number] [place] [address] 64593- 1763 Mar, Local infection of the skin and subcutaneous tissue, unspecified L08.9 ; Unspecified staphylococcus as the cause of diseases classified elsewhere B95.8 ; Type 2 diabetes mellitus with diabetic polyneuropathy E11.42 and intermediate current use of insulin Z79.4 [place] [id number] [place] [address] 68459- 7705 Mar, [facility] [id number] [place] [address] 18189- 0000 February, Type 2 diabetes mellitus with diabetic polyneuropathy E11.42 ; 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 ; Essential hypertension I10 ; Anxiety state, unspecified F41.1 ; Depressive disorder, not elsewhere classified F32.9 and Dysuria R30.0 [place] [id number] [place] [address] 32930- 9233 Jan, Type 2 diabetes mellitus with diabetic polyneuropathy E11.42 [facility] [id number] [place] [address] 87402- 1944 Jan, Type 2 diabetes mellitus with diabetic polyneuropathy E11.42 [place] [address] 60408- 9926 Jan, [facility] [id number] [place] [address] 99765 -1785 Dec, Migraine without status migrainosus, not intractable, unspecified migraine type G43.909 [place] [id number] [place] [address] 36366- 9172 Dec, Type 2 diabetes mellitus with diabetic polyneuropathy E11.42 ; 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 ; Dog bite, subsequent encounter W54.0XXD and Essential hypertension I10 [facility] [id number] [place] [address] 19497 -0106 Dec, Dog bite, initial encounter W54.0XXA [place] [id number] [place] [address] 09785- 8516 Dec, [facility] [id number] [place] [address] 20253- 4772 Nov, [place] [address] [place] [address]- 5814 Oct, [facility] [id number] [place] [address] 42533 -1921 Oct, Fissure in skin of foot R23.4 [facility] [id number] [place] [address] 96795- 2196 Oct, [facility] [id number] [place] [address] 21500- 6478 Oct, [facility] [id number] [place] [address] 14301- 1289 Oct, [facility] [id number] [place] [address] 09084- 4041 Oct, Type 2 diabetes mellitus with diabetic polyneuropathy E11.42 [facility] [id number] [place] [address] 84622- 4635 Oct, Anxiety state, unspecified F41.1 and Depressive disorder, not elsewhere classified F32.9 [facility] [id number] [place] [address] 48545- 3410 Oct, [facility] [id number] [place] [address] 63072- 1881 Oct, [facility] [id number] [place] [address] 78341- 7082 Sep, Essential hypertension I10 [facility] [id number] [place] [address] 10719- 9004 14 Sep, 2017 [facility] [id number] [place] [address] 55011- 6750 Sep, Type 2 diabetes mellitus with diabetic polyneuropathy E11.42 and Neuropathic ulcer of foot, unspecified laterality, unspecified ulcer stage L97.509 [facility] [address] [address] 3[address] Sep, Neuropathic ulcer of foot, unspecified laterality, unspecified ulcer stage L97.509 and Acute vaginitis N76.0 [facility] [address] [address]- 0650 12 Sep, 2017 Type 2 diabetes mellitus with diabetic polyneuropathy E11.42 ; intermediate current use of insulin Z79.4 ; Essential hypertension I10 ; 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 ; Reactive depression F32.9 ; Acute vaginitis N76.0 and Mild intermittent asthma without complication J45.20 [facility] [id number] [place] [address] 34326- 9240 17 Jul, 2017 [facility] [id number] [place] [address] 77560 -0376 Jun, [facility] [id number] [place] [address] 18700- 4305 May, [facility] [id number] [place] [address] 14506 -3889 May, Cellulitis L03.90 [facility] [id number] [place] [address] 66039- 5508 Mar, [facility] [id number] [place] [address] 67056- 8468 Jan, [facility] [id number] [place] [address] 56711- 5215 Jan, [facility] [id number] [place] [address] 76783- 2832 Sep, [facility] [id number] [place] [address] 12314- 9750 Sep, [facility] [id number] [place] [address] 181400- 0473 Apr, [facility] [id number] [place] [address] 601161- 7237 Apr, [facility] [id number] [place] [address] 807430- 2510 Apr, [facility] [place] [facility] [address] [id number] [place] [address]- 8544 Apr, 2013 [facility] [place] [facility] [address] [id number] [place] [address]- 9704 Apr, [facility] [place] [facility] [address] [id number] [place] [address]- 8891 Apr, [facility] [place] [facility] [address] [id number] [place] [address]- 9847 Apr, [facility] [place] [facility] [address] [id number] [place] [address]- 3825 Apr, [facility] [place] [facility] [address] [id number] [place] [address]- 9934 Mar, [facility] [place] [facility] [address] [id number] [place] [address]- 5398 Mar, [facility] [place] [facility] [address] [id number] [place] [address]- 9899 Mar, [facility] [place] [facility] [address] [id number] [place] [address]- 4220 Mar, [facility] [place] [facility] [address] [id number] [place] [address]- 7206 Mar, [facility] [place] [facility] [address] [id number] [place] [address]- 8485 Mar, [facility] [place] [facility] [address] [id number] [place] [address]- 2228 Mar, [facility] [place] [facility] [address] [id number] [place] [address]- 7259 Mar, [facility] [place] [facility] [address] [id number] [place] [address]- 3009 Mar, [facility] [place] [facility] [address] [id number] [place] [address]- 7751 Mar, [facility] [place] [facility] [address] [id number] [place] [address]- 6228 16 Mar, 2014 [facility] [place] [facility] [address] [id number] [place] [address]- 7985 15 Mar, 2014 [facility] [place] [facility] [address] [id number] [place] [address]- 2642 13 Mar, 2014 [facility] [place] [facility] [address] [id number] [place] [address]- 4266 Mar, [facility] [place] [facility] [address] [id number] [place] [address]- 0765 11 Mar, 2014 [facility] [place] [facility] [address] [id number] [place] [address]- 2866 Mar, [facility] [place] [facility] [address] [id number] [place] [address]- 8306 Mar, [facility] [place] [facility] [address] [id number] [place] [address]- 6938 Mar, [facility] [place] [facility] [address] [id number] [place] [address]- 2124 Mar, [facility] [place] [facility] [address] [id number] [place] [address]- 2445 February, [facility] [place] [facility] [address] [id number] [place] [address]- 6053 February, [facility] [place] [facility] [address] [id number] [place] [address]- 2873 24 Jan, 2014 [facility] [place] [facility] [address] [id number] [place] [address]- 6775 24 Jan, 2014 [facility] [place] [facility] [address] [id number] [place] [address]- 7830 18 Jan, 2014 [facility] [place] [facility] [address] [id number] [place] [address]- 5607 18 Jan, 2014 [facility] [place] [facility] [address] [id number] [place] [address]- 2292 17 Jan, 2014 [facility] [place] [facility] [address] [id number] [place] [address]- 8433 17 Jan, 2014 [facility] [address] [id number] [place] [address]- 0304 14 Jan, 2014 [facility] [place] [facility] [address] [id number] [place] [address]- 8644 11 Jan, 2014 [facility] [address] [id number] [place] [address]- 7122 10 Jan, 2014 [facility] [place] [facility] [address] [id number] [place] [address]- 4464 10 Jan, 2014 [facility] [address] [id number] [place] [address]- 2554 17 Dec, 2013 [facility] [place] [facility] [address] [id number] [place] [address]- 4865 17 Dec, 2013 [facility] [place] [facility] [address] [id number] [place] [address]- 9269 Dec, [facility] [place] [facility] [address] [id number] [place] [address]- 6998 11 Dec, 2013 [facility] [place] [facility] [address] [id number] [place] [address]- 9067 Dec, [facility] [address] [id number] [place] [address]- 4231 10 Dec, 2013 [facility] [place] [facility] [address] [id number] [place] [address]- 5697 07 Dec, 2013 [facility] [place] [facility] [address] [id number] [place] [address]- 5904 07 Dec, 2013 [facility] [place] [facility] [address] [id number] [place] [address]- 4840 03 Dec, 2013 [facility] [place] [facility] [address] [id number] [place] [address]- 8726 Dec, [facility] [place] [facility] [address] [id number] [place] [address]- 8587 Oct, [facility] [address] [id number] [place] [address]- 0018 Oct, [facility] [place] [facility] [address] [id number] [place] [address]- 8222 Jul, [facility] [place] [facility] [address] [id number] [place] 9241 Jul, [facility] [place] [facility] [address] [id number] [place] [address]- 3175 Jul, [facility] [address] [id number] [place] [address]- 8551 Jun, [facility] [place] [facility] [address] [id number] [place] [address]- 8128 Jun, [facility] [place] [facility] [address] [id number] [place] [address]- 9902 Jun, [facility] [place] [facility] [address] [id number] [place] [address]- 8086 Jun, [facility] [place] [facility] [address] [id number] [place] [address]- 1598 Apr, [facility] [place] [facility] [address] [id number] [place] [address]- 0438 February, [facility] [place] [facility] [address] [id number] [place] [address]- 1720 Nov, [facility] [place] [facility] [address] [id number] [address]- 7726 Nov, [facility] [place] [facility] [address] [id number] [place] [address]- 7130 Nov, [facility] [place] [facility] [address] [id number] [place] [address]- 8346 Sep, [facility] [place] [facility] [address] [id number] [place] [address]- 5451 Sep, [facility] [place] [facility] [address] [id number] [place] [address]- 3591 18 Sep, 2012 [facility] [place] [facility] [address] [id number] [place] 8317 18 Sep, 2012 [facility] [place] [facility] [address] [id number] [place] 9856 Sep, [facility] [place] [facility] [address] [id number] [place] [address]- 5096 Sep, [facility] [place] [facility] [address] [id number] [place] [address]- 6325 Sep, [facility] [place] [facility] [address] [id number] [place] [address]- 8671 Sep, [facility] [place] [facility] [address] [id number] [place] [address]- 0324 Sep, [facility] [place] [facility] [address] [id number] [place] [address]- 2970 Sep, [facility] [place] [facility] [address] [id number] [place] [address]- 7821 Aug, [facility] [place] [facility] [address] [id number] [place] [address]- 8599 Aug, [facility] [place] [facility] [address] [facility] [id number] [place] [address]- 8377 Aug, [facility] [place] [facility] [address] [id number] [place] [address]- 4840 Aug, [facility] [place] [facility] [address] [id number] [place] [address]- 2988 Aug, [facility] [place] [facility] [address] [id number] [place] [address]- 3524 Jul, [facility] [place] [facility] [address] [id number] [place] [address]- 0738 Apr, [facility] [place] [facility] [address] [facility] [id number] [place] [address]- 7467 February, [facility] [place] [facility] [address] [id number] [place] [address]- 9288 Jan, [facility] [address] [id number] [place] [address]- 1755 Jan, [facility] [place] [facility] [address] [id number] [place] [address]- 9146 Dec, [facility] [place] [facility] [address] [id number] [place] [address]- 8473 Dec, [facility] [place] [facility] [address] [id number] [place] [address]- 5736 Oct, [facility] [place] [facility] [address] [id number] [place] [address]- 7600 Oct, [facility] [address] [id number] [place] [address]- 7903 February, [facility] [address] [id number] [place] [address]- 8731 Sep, [facility] [address] [id number] [place] [address]- 0068 Jul, [facility] [address] [id number] [place] [address]- 4888 Jul, [facility] [place] [facility] [address] [id number] [place] [address]- 3722 Jul, [facility] [address] [id number] [place] [address]- 1325 17 Jun, 2010 [facility] [place] [facility] [address] [id number] [place] [address]- 4379 15 Sep, 2009 [facility] [place] [facility] [address] [id number] [place] [address]- 7788 Sep, [facility] [place] [facility] [address] [id number] [place] [address]- 2976 09 Sep, 2009 [facility] [place] [facility] [address] [id number] [place] [address]- 1909 Jun, [facility] [address] [facility] [id number] [place] [address]- 1004 Dec, IMMUNIZATIONS No Known Immunizations SOCIAL HISTORY Never Assessed REASON FOR VISIT PALs in - Humalog PLAN OF CARE VITAL SIGNS MEDICATIONS Unknown Medications RESULTS No Results PROCEDURES No Known procedures INSTRUCTIONS MEDICATIONS ADMINISTERED No Known Medications MEDICAL (GENERAL) HISTORY Type Description Date Medical History diabetes type 1 Medical History hypertension Medical History asthma Medical History depression Medical History Diabetic Macular Edema Surgical History 1985, 1988, 1991, 1994 Hospitalization History multiple
--- OUTSIDE RECORDS SUMMARY | 2018-08-17 23:56 | XMS REPORT ---
Author Author ALVA BENTLEY [facility] Address [address] [place] [address] Care Team Providers Care Dot Compliance Manager Name Role Phone ALVA BENTLEY Unavailable PROBLEMS Type Condition ICD9-CM Code JAC28-QA Code Onset Dates Condition Status SNOMED Code Problem Anxiety state, unspecified F41.1 Active 480268343 Problem Migraine without status migrainosus, not intractable, unspecified migraine type G43.909 Active 57326676 Problem Depressive disorder, not elsewhere classified F32.9 Active 49476106 Problem residential current use of insulin Z79.4 Active 390093522 Problem Type 2 diabetes mellitus with diabetic polyneuropathy E11.42 Active 99090588 Problem Mild intermittent asthma without complication J45.20 Active 082918911 Problem Essential hypertension I10 Active 53443621 Problem Mixed hyperlipidemia E78.2 Active 066964889 Problem Hospital discharge follow-up Z09 Active 678260059 Problem Local infection of the skin and subcutaneous tissue, unspecified L08.9 Active 184942594 Problem Unspecified staphylococcus as the cause of diseases classified elsewhere B95.8 Active 88578682 Problem Chronic kidney disease, unspecified CKD stage N18.9 Active 384611532 Problem Lumbar radiculopathy, chronic M54.16 Active [id number] ALLERGIES No Information ENCOUNTERS Encounter Location Date Diagnosis [facility] [id number] [address] May, [facility] [address] [address] May, [facility] [id number] [place] [address] 08304- 2978 May, [facility] [address] [address] May, Mixed hyperlipidemia E78.2 [facility] [id number] [place] [address] 35564- 2512 16 May, 2018 Type 2 diabetes mellitus with diabetic polyneuropathy E11.42 and Mixed hyperlipidemia E78.2 [facility] [id number] [place] [address] 27130- 2633 15 May, 2018 Type 2 diabetes mellitus with diabetic polyneuropathy E11.42 ; 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 ; Hospital discharge follow-up Z09 ; Dehydration E86.0 ; Chronic kidney disease, unspecified CKD stage N18.9 and Yeast vaginitis B37.3 [facility] [id number] [place] [address] 57354- 9835 Apr, Lumbar radiculopathy M54.16 [facility] [id number] [place] [address] 41300- 1261 Apr, Lumbar radiculopathy, chronic M54.16 ; Type 2 diabetes mellitus with diabetic polyneuropathy E11.42 ; Dysuria R30.0 and Essential hypertension I10 [facility] [id number] [place] [address] 32189- 0909 Apr, Type 2 diabetes mellitus with diabetic polyneuropathy E11.42 [facility] [id number] [place] [address] 02659- 7043 Apr, [facility] [id number] [place] [address] 15911- 9596 Apr, [facility] [id number] [place] [address] 49771- 6386 Mar, [facility] [id number] [place] [address] 56231- 1574 Mar, Anxiety state, unspecified F41.1 [facility] [id number] [place] [address] 41348- 8135 Mar, Local infection of the skin and subcutaneous tissue, unspecified L08.9 ; Unspecified staphylococcus as the cause of diseases classified elsewhere B95.8 ; Type 2 diabetes mellitus with diabetic polyneuropathy E11.42 and residential current use of insulin Z79.4 [facility] [id number] [place] [address] 96099- 8190 Mar, [facility] [id number] [place] [address] 19622- 2530 February, Type 2 diabetes mellitus with diabetic polyneuropathy E11.42 ; 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 ; Essential hypertension I10 ; Anxiety state, unspecified F41.1 ; Depressive disorder, not elsewhere classified F32.9 and Dysuria R30.0 [facility] [id number] [place] [address] 80263- 5054 Jan, Type 2 diabetes mellitus with diabetic polyneuropathy E11.42 [facility] [id number] [place] [address] 28403- 0905 Jan, Type 2 diabetes mellitus with diabetic polyneuropathy E11.42 [facility] [address] 67298- 3681 Jan, [facility] [id number] [place] [address] 71195 -4767 Dec, Migraine without status migrainosus, not intractable, unspecified migraine type G43.909 [facility] [id number] [place] [address] 01830- 6961 Dec, Type 2 diabetes mellitus with diabetic polyneuropathy E11.42 ; 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 ; Dog bite, subsequent encounter W54.0XXD and Essential hypertension I10 [facility] [id number] [place] [address] 61553 -4030 Dec, Dog bite, initial encounter W54.0XXA [facility] [id number] [place] [address] 81492- 4139 Dec, [facility] [id number] [place] [address] 41828- 5827 Nov, [facility] [address] [place] [address]- 7193 Oct, [facility] [id number] [place] [address] 88434 -7506 Oct, Fissure in skin of foot R23.4 [facility] [address] [place] [address] 65608- 8699 Oct, [facility] [id number] [place] [address] 75316- 3842 Oct, [facility] [id number] [place] [address] 78176- 3342 Oct, [facility] [id number] [place] [address] 00914- 7615 Oct, Type 2 diabetes mellitus with diabetic polyneuropathy E11.42 [facility] [id number] [place] [address] 00729- 8898 Oct, Anxiety state, unspecified F41.1 and Depressive disorder, not elsewhere classified F32.9 [facility] [id number] [place] [address] 96642- 8475 Oct, [facility] [id number] [place] [address] 13623- 0557 Oct, [facility] [address] [place] [address] 91772- 3715 Sep, Essential hypertension I10 [facility] [id number] [place] [address] 66420- 9522 14 Sep, 2017 [facility] [address] [place] [address] 75731- 1113 Sep, Type 2 diabetes mellitus with diabetic polyneuropathy E11.42 and Neuropathic ulcer of foot, unspecified laterality, unspecified ulcer stage L97.509 [facility] [address] [address] 3560 Sep, Neuropathic ulcer of foot, unspecified laterality, unspecified ulcer stage L97.509 and Acute vaginitis N76.0 [facility] [address], [place] [address]- 2914 12 Sep, 2017 Type 2 diabetes mellitus with diabetic polyneuropathy E11.42 ; residential current use of insulin Z79.4 ; Essential hypertension I10 ; 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 ; Reactive depression F32.9 ; Acute vaginitis N76.0 and Mild intermittent asthma without complication J45.20 [facility] [id number] [place] [address] 67871- 2078 17 Jul, 2017 [facility] [id number] [place] [address] 48951 -9456 Jun, [facility] [id number] [place] [address] 43742- 6440 May, [facility] [id number] [place] [address] 74547 -6117 May, Cellulitis L03.90 [facility] [id number] [place] [address] 84719- 1442 Mar, [facility] [id number] [place] [address] 50171- 1605 Jan, [facility] [id number] [place] [address] 09764- 7200 Jan, [facility] [id number] [place] [address] 32696- 3468 Sep, [facility] [id number] [place] [address] 56830- 1031 Sep, [facility] [id number] [place] [address] 498275- 8670 Apr, [facility] [id number] [place] [address] 009702- 4560 Apr, [facility] [id number] [place] [address] 424388- 3419 Apr, [facility] [place] [facility] [address] [id number] [place] [address]- 1054 Apr, 2013 [facility] [place] [facility] [address] [id number] [place] [address]- 7336 Apr, [facility] [place] [facility] [address] [id number] [place] [address]- 2733 Apr, [facility] [place] [facility] [address] [id number] [place] [address]- 5868 Apr, [facility] [place] [facility] [address] [id number] [place] [address]- 8221 Apr, [facility] [place] [facility] [address] [id number] [place] [address]- 4896 Mar, [facility] [place] [facility] [address] [id number] [place] [address]- 9911 Mar, [facility] [place] [facility] [address] [id number] [place] [address]- 5180 Mar, [facility] [place] [facility] [address] [id number] [place] [address]- 4507 Mar, [facility] [place] [facility] [address] [id number] [place] [address]- 5225 Mar, [facility] [place] [facility] [address] [id number] [place] [address]- 3213 Mar, [facility] [place] [facility] [address] [id number] [place] [address]- 4297 Mar, [facility] [place] [facility] [address] [id number] [place] [address]- 0032 Mar, [facility] [place] [facility] [address] [id number] [place] [address]- 4515 Mar, [facility] [place] [facility] [address] [id number] [place] [address]- 5550 Mar, [facility] [place] [facility] [address] [id number] [place] [address]- 4412 16 Mar, 2014 [facility] [place] [facility] [address] [id number] [place] [address]- 8870 15 Mar, 2014 [facility] [place] [facility] [address] [id number] [place] [address]- 5573 13 Mar, 2014 [facility] [place] [facility] [address] [id number] [place] [address]- 3082 Mar, [facility] [place] [facility] [address] [id number] [place] [address]- 2839 11 Mar, 2014 [facility] [place] [facility] [address] [id number] [place] [address]- 1368 Mar, [facility] [place] [facility] [address] [id number] [place] [address]- 2332 Mar, [facility] [place] [facility] [address] [id number] [place] [address]- 3456 Mar, [facility] [place] [facility] [address] [id number] [place] [address]- 4132 Mar, [facility] [place] [facility] [address] [id number] [place] [address]- 5365 February, [facility] [place] [facility] [address] [id number] [place] [address]- 8082 February, [facility] [place] [facility] [address] [id number] [place] [address]- 1457 24 Jan, 2014 [facility] [place] [facility] [address] [id number] [place] [address]- 6554 24 Jan, 2014 [facility] [place] [facility] [address] [id number] [place] [address]- 5279 18 Jan, 2014 [facility] [place] [facility] [address] [id number] [place] [address]- 2469 18 Jan, 2014 [facility] [place] [facility] [address] [id number] [place] [address]- 2283 17 Jan, 2014 [facility] [place] [facility] [address] [id number] [place] [address]- 4880 17 Jan, 2014 [facility] [address] [id number] [place] [address]- 8101 14 Jan, 2014 [facility] [place] [facility] [address] [id number] [place] [address]- 6573 11 Jan, 2014 [facility] [address] [id number] [place] [address]- 3697 10 Jan, 2014 [facility] [place] [facility] [address] [id number] [place] [address]- 6156 10 Jan, 2014 [facility] [address] [id number] [place] [address]- 9887 17 Dec, 2013 [facility] [place] [facility] [address] [id number] [place] [address]- 1472 17 Dec, 2013 [facility] [place] [facility] [address] [id number] [place] [address]- 2920 Dec, [facility] [place] [facility] [address] [id number] [place] [address]- 1367 11 Dec, 2013 [facility] [place] [facility] [address] [id number] [place] [address]- 8008 Dec, [facility] [address] [id number] [place] [address]- 7959 10 Dec, 2013 [facility] [place] [facility] [address] [id number] [place] [address]- 5193 07 Dec, 2013 [facility] [place] [facility] [address] [id number] [place] [address]- 9162 07 Dec, 2013 [facility] [place] [facility] [address] [id number] [place] [address]- 5116 03 Dec, 2013 [facility] [place] [facility] [address] [id number] [place] [address]- 9866 Dec, [facility] [place] [facility] [address] [id number] [place] [address]- 3945 Oct, [facility] [address] [id number] [place] [address]- 6351 Oct, [facility] [place] [facility] [address] [id number] [place] [address]- 0640 Jul, [facility] [place] [facility] [address] [id number] [place] 4856 Jul, [facility] [place] [facility] [address] [id number] [place] [address]- 8217 Jul, [facility] [address] [id number] [place] [address]- 3955 Jun, [facility] [place] [facility] [address] [id number] [place] [address]- 7776 Jun, [facility] [place] [facility] [address] [id number] [place] [address]- 4996 Jun, [facility] [place] [facility] [address] [id number] [place] [address]- 5089 Jun, [facility] [place] [facility] [address] [id number] [place] [address]- 7303 Apr, [facility] [place] [facility] [address] [id number] [place] [address]- 7979 February, [facility] [place] [facility] [address] [id number] [place] [address]- 6200 Nov, [facility] [place] [facility] [address] [id number] [address]- 6407 Nov, [facility] [place] [facility] [address] [id number] [place] [address]- 1752 Nov, [facility] [place] [facility] [address] [id number] [place] [address]- 0686 Sep, [facility] [place] [facility] [address] [id number] [place] [address]- 4742 Sep, [facility] [place] [facility] [address] [id number] [place] [address]- 8435 18 Sep, 2012 [facility] [place] [facility] [address] [id number] [place] 7717 18 Sep, 2012 [facility] [place] [facility] [address] [id number] [place] 3046 Sep, [facility] [place] [facility] [address] [id number] [place] [address]- 2766 Sep, [facility] [place] [facility] [address] [id number] [place] [address]- 2972 Sep, [facility] [place] [facility] [address] [id number] [place] [address]- 5521 Sep, [facility] [place] [facility] [address] [id number] [place] [address]- 2659 Sep, [facility] [place] [facility] [address] [id number] [place] [address]- 0681 Sep, [facility] [place] [facility] [address] [id number] [place] [address]- 7034 Aug, [facility] [place] [facility] [address] [id number] [place] [address]- 1015 Aug, [facility] [place] [facility] [address] [facility] [id number] [place] [address]- 3223 Aug, [facility] [place] [facility] [address] [id number] [place] [address]- 4457 Aug, [facility] [place] [facility] [address] [id number] [place] [address]- 3487 Aug, [facility] [place] [facility] [address] [id number] [place] [address]- 9412 Jul, [facility] [place] [facility] [address] [id number] [place] [address]- 1510 Apr, [facility] [place] [facility] [address] [facility] [id number] [place] [address]- 9119 February, [facility] [place] [facility] [address] [id number] [place] [address]- 5974 Jan, [facility] [address] [id number] [place] [address]- 1158 Jan, [facility] [place] [facility] [address] [id number] [place] [address]- 3316 Dec, [facility] [place] [facility] [address] [id number] [place] [address]- 0074 Dec, [facility] [place] [facility] [address] [id number] [place] [address]- 8506 Oct, [facility] [place] [facility] [address] [id number] [place] [address]- 8957 Oct, [facility] [address] [id number] [place] [address]- 6097 February, [facility] [address] [id number] [place] [address]- 8755 Sep, [facility] [address] [id number] [place] [address]- 6186 Jul, [facility] [address] [id number] [place] [address]- 7800 Jul, [facility] [place] [facility] [address] [id number] [place] [address]- 6453 Jul, [facility] [address] [id number] [place] [address]- 0870 17 Jun, 2010 [facility] [place] [facility] [address] [id number] [place] [address]- 6255 15 Sep, 2009 [facility] [place] [facility] [address] [id number] [place] [address]- 0015 Sep, [facility] [place] [facility] [address] [id number] [place] [address]- 9808 09 Sep, 2009 [facility] [place] [facility] [address] [id number] [place] [address]- 8475 Jun, [facility] [address] [facility] [id number] [place] [address]- 7612 Dec, IMMUNIZATIONS No Known Immunizations SOCIAL HISTORY Never Assessed REASON FOR VISIT Medication refill request PLAN OF CARE VITAL SIGNS MEDICATIONS Unknown Medications RESULTS No Results PROCEDURES No Known procedures INSTRUCTIONS MEDICATIONS ADMINISTERED No Known Medications MEDICAL (GENERAL) HISTORY Type Description Date Medical History diabetes type 1 Medical History hypertension Medical History asthma Medical History depression Medical History Diabetic Macular Edema Surgical History 1985, 1988, 1991, 1994 Hospitalization History multiple
--- OUTSIDE RECORDS SUMMARY | 2018-08-17 23:56 | XMS REPORT ---
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 Name Role Phone ALVA BENTLEY Unavailable PROBLEMS Type Condition ICD9-CM Code QJO30-GD Code Onset Dates Condition Status SNOMED Code Problem Anxiety state, unspecified F41.1 Active 770360617 Problem Migraine without status migrainosus, not intractable, unspecified migraine type G43.909 Active 32331583 Problem Depressive disorder, not elsewhere classified F32.9 Active 31665316 Problem assisted current use of insulin Z79.4 Active 547674217 Problem Type 2 diabetes mellitus with diabetic polyneuropathy E11.42 Active 88631388 Problem Mild intermittent asthma without complication J45.20 Active 825873222 Problem Essential hypertension I10 Active 54505059 Problem Mixed hyperlipidemia E78.2 Active 763880174 Problem Hospital discharge follow-up Z09 Active 462439507 Problem Local infection of the skin and subcutaneous tissue, unspecified L08.9 Active 052443414 Problem Unspecified staphylococcus as the cause of diseases classified elsewhere B95.8 Active 87217904 Problem Chronic kidney disease, unspecified CKD stage N18.9 Active 237628451 Problem Lumbar radiculopathy, chronic M54.16 Active 860100597 ALLERGIES No Information ENCOUNTERS Encounter Location Date Diagnosis [facility] [id number], [place] [address] May, [facility] [address], [place] [address] May, [facility] [id number] [place] [address] 83168- 2624 May, [facility] [address], [place] [address] May, Mixed hyperlipidemia E78.2 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.4 ; Hospital discharge follow-up Z09 ; Dehydration E86.0 ; Chronic kidney disease, unspecified CKD stage N18.9 and Yeast vaginitis B37.3 [facility] [id number] [place] [address] 99208- 0319 Apr, Lumbar radiculopathy M54.16 [facility] [id number] [place] [address] 07694- 4911 Apr, Lumbar radiculopathy, chronic M54.16 ; Type 2 diabetes mellitus with diabetic polyneuropathy E11.42 ; Dysuria R30.0 and Essential hypertension I10 [facility] [id number] [place] [address] 13700- 0840 Apr, Type 2 diabetes mellitus with diabetic polyneuropathy E11.42 [facility] [id number] [place] [address] 46636- 6639 Apr, [facility] [id number] [place] [address] 70903- 1311 Apr, [facility] [id number] [place] [address] 40156- 7993 Mar, [facility] [id number] [place] [address] 92683- 8770 Mar, Anxiety state, unspecified F41.1 [facility] [id number] [place] [address] 47548- 5314 Mar, Local infection of the skin and subcutaneous tissue, unspecified L08.9 ; Unspecified staphylococcus as the cause of diseases classified elsewhere B95.8 ; Type 2 diabetes mellitus with diabetic polyneuropathy E11.42 and assisted current use of insulin Z79.4 [facility] [id number] [place] [address] 91587- 2535 Mar, 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.4 ; Essential hypertension I10 ; Anxiety state, unspecified F41.1 ; Depressive disorder, not elsewhere classified F32.9 and Dysuria R30.0 [facility] [facility] [id number] [place] [address] 45463- 8513 Jan, Type 2 diabetes mellitus with diabetic polyneuropathy E11.42 [facility] [id number] [place] [address] 83127- 3351 Jan, Type 2 diabetes mellitus with diabetic polyneuropathy E11.42 [place] [address] 74256- 1258 Jan, [facility] [id number] [place] [address] 44085 -5417 Dec, Migraine without status migrainosus, not intractable, unspecified migraine type G43.909 [place] [id number] [place] [address] 67327- 0834 Dec, Type 2 diabetes mellitus with diabetic polyneuropathy E11.42 ; 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 [id number] [place] [address] 11788- 6856 Nov, [place] [address] [place] [address]- 5193 Oct, [facility] [id number] [place] [address] 10105 -6197 Oct, Fissure in skin of foot R23.4 [facility] [address] [place] [address] 41010- 4152 Oct, [facility] [id number] [place] [address] 09886- 7464 Oct, [facility] [id number] [place] [address] 55837- 8690 Oct, [facility] [id number] [place] [address] 54136- 0552 Oct, Type 2 diabetes mellitus with diabetic polyneuropathy E11.42 [facility] [id number] [place] [address] 02233- 3311 Oct, Anxiety state, unspecified F41.1 and Depressive disorder, not elsewhere classified F32.9 [facility] [id number] [place] [address] 07986- 8974 Oct, [facility] [id number] [place] [address] 93407- 7372 Oct, [facility] [address] [place] [address] 30845- 2097 Sep, Essential hypertension I10 [facility] [id number] [place] [address] 91520- 1951 14 Sep, 2017 [facility] [address] [place] [address] 08429- 4397 Sep, Type 2 diabetes mellitus with diabetic polyneuropathy E11.42 and Neuropathic ulcer of foot, unspecified laterality, unspecified ulcer stage L97.509 [facility] [address], [place] [address] 0567 Sep, Neuropathic ulcer of foot, unspecified laterality, unspecified ulcer stage L97.509 and Acute vaginitis N76.0 [facility] [address], [place] [address]- 0696 12 Sep, 2017 Type 2 diabetes mellitus with diabetic polyneuropathy E11.42 ; assisted current use of insulin Z79.4 ; Essential hypertension I10 ; 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 ; Reactive depression F32.9 ; Acute vaginitis N76.0 and Mild intermittent asthma without complication J45.20 [facility] [id number] [place] [address] 38717- 1002 17 Jul, 2017 [facility] [id number] [place] [address] 91649 -2475 Jun, [facility] [id number] [place] [address] 25381- 2343 May, [facility] [id number] [place] [address] 72956 -2166 May, Cellulitis L03.90 [facility] [id number] [place] [address] 82345- 4724 Mar, [facility] [id number] [place] [address] 09845- 3553 Jan, [facility] [id number] [place] [address] 32843- 8598 Jan, [facility] [id number] [place] [address] 14334- 0152 Sep, [facility] [id number] [place] [address] 60065- 4506 Sep, [facility] [id number] [place] [address] 325859- 2966 Apr, [facility] [id number] [place] [address] 742702- 9536 Apr, [facility] [id number] [place] [address] 450972- 2506 Apr, [facility] [place] [facility] [address] [id number] [place] [address]- 2757 Apr, 2013 [facility] [place] [facility] [address] [id number] [place] [address]- 9441 Apr, [facility] [place] [facility] [address] [id number] [place] [address]- 1191 Apr, [facility] [place] [facility] [address] [id number] [place] [address]- 8487 Apr, [facility] [place] [facility] [address] [id number] [place] [address]- 2944 Apr, [facility] [place] [facility] [address] [id number] [place] [address]- 0720 Mar, [facility] [place] [facility] [address] [id number] [place] [address]- 6254 Mar, [facility] [place] [facility] [address] [id number] [place] [address]- 5815 Mar, [facility] [place] [facility] [address] [id number] [place] [address]- 7733 Mar, [facility] [place] [facility] [address] [id number] [place] [address]- 9669 Mar, [facility] [place] [facility] [address] [id number] [place] [address]- 4755 Mar, [facility] [place] [facility] [address] [id number] [place] [address]- 0904 Mar, [facility] [place] [facility] [address] [id number] [place] [address]- 8497 Mar, [facility] [place] [facility] [address] [id number] [place] [address]- 3291 Mar, [facility] [place] [facility] [address] [id number] [place] [address]- 4289 Mar, [facility] [place] [facility] [address] [id number] [place] [address]- 3412 16 Mar, 2014 [facility] [place] [facility] [address] [id number] [place] [address]- 7474 15 Mar, 2014 [facility] [place] [facility] [address] [id number] [place] [address]- 9986 13 Mar, 2014 [facility] [place] [facility] [address] [id number] [place] [address]- 9159 Mar, [facility] [place] [facility] [address] [id number] [place] [address]- 2536 11 Mar, 2014 [facility] [place] [facility] [address] [id number] [place] [address]- 6991 Mar, [facility] [place] [facility] [address] [id number] [place] [address]- 4762 Mar, [facility] [place] [facility] [address] [id number] [place] [address]- 1620 Mar, [facility] [place] [facility] [address] [id number] [place] [address]- 7535 Mar, [facility] [place] [facility] [address] [id number] [place] [address]- 5473 February, [facility] [place] [facility] [address] [id number] [place] [address]- 7973 February, [facility] [place] [facility] [address] [id number] [place] [address]- 2942 24 Jan, 2014 [facility] [place] [facility] [address] [id number] [place] [address]- 6448 24 Jan, 2014 [facility] [place] [facility] [address] [id number] [place] [address]- 5723 18 Jan, 2014 [facility] [place] [facility] [address] [id number] [place] [address]- 9355 18 Jan, 2014 [facility] [place] [facility] [address] [id number] [place] [address]- 0715 17 Jan, 2014 [facility] [place] [facility] [address] [id number] [place] [address]- 1291 17 Jan, 2014 [facility] [address] [id number] [place] [address]- 5559 14 Jan, 2014 [facility] [place] [facility] [address] [id number] [place] [address]- 8610 11 Jan, 2014 [facility] [address] [id number] [place] [address]- 3252 10 Jan, 2014 [facility] [place] [facility] [address] [id number] [place] [address]- 3274 10 Jan, 2014 [facility] [address] [id number] [place] [address]- 3203 17 Dec, 2013 [facility] [place] [facility] [address] [id number] [place] [address]- 5531 17 Dec, 2013 [facility] [place] [facility] [address] [id number] [place] [address]- 5172 Dec, [facility] [place] [facility] [address] [id number] [place] [address]- 7963 11 Dec, 2013 [facility] [place] [facility] [address] [id number] [place] [address]- 2041 Dec, [facility] [address] [id number] [place] [address]- 0000 10 Dec, 2013 [facility] [place] [facility] [address] [id number] [place] [address]- 9601 07 Dec, 2013 [facility] [place] [facility] [address] [id number] [place] [address]- 9698 07 Dec, 2013 [facility] [place] [facility] [address] [id number] [place] [address]- 1207 03 Dec, 2013 [facility] [place] [facility] [address] [id number] [place] [address]- 2716 Dec, [facility] [place] [facility] [address] [id number] [place] [address]- 4495 Oct, [facility] [address] [id number] [place] [address]- 3389 Oct, [facility] [place] [facility] [address] [id number] [place] [address]- 7363 Jul, [facility] [place] [facility] [address] [id number] [place] 8181 Jul, [facility] [place] [facility] [address] [id number] [place] [address]- 6681 Jul, [facility] [address] [id number] [place] [address]- 1116 Jun, [facility] [place] [facility] [address] [id number] [place] [address]- 9745 Jun, [facility] [place] [facility] [address] [id number] [place] [address]- 8238 Jun, [facility] [place] [facility] [address] [id number] [place] [address]- 0720 Jun, [facility] [place] [facility] [address] [id number] [place] [address]- 1617 Apr, [facility] [place] [facility] [address] [id number] [place] [address]- 6590 February, [facility] [place] [facility] [address] [id number] [place] [address]- 5696 Nov, [facility] [place] [facility] [address] [id number], [place] [address]- 5997 Nov, [facility] [place] [facility] [address] [id number] [place] [address]- 9095 Nov, [facility] [place] [facility] [address] [id number] [place] [address]- 7026 Sep, [facility] [place] [facility] [address] [id number] [place] [address]- 8332 Sep, [facility] [place] [facility] [address] [id number] [place] [address]- 1626 18 Sep, 2012 [facility] [place] [facility] [address] [id number] [place] 8237 18 Sep, 2012 [facility] [place] [facility] [address] [id number] [place] 8266 Sep, [facility] [place] [facility] [address] [id number] [place] [address]- 6126 Sep, [facility] [place] [facility] [address] [id number] [place] [address]- 5896 Sep, [facility] [place] [facility] [address] [id number] [place] [address]- 3156 Sep, [facility] [place] [facility] [address] [id number] [place] [address]- 7385 Sep, [facility] [place] [facility] [address] [id number] [place] [address]- 7385 Sep, [facility] [place] [facility] [address] [id number] [place] [address]- 0770 Aug, [facility] [place] [facility] [address] [id number] [place] [address]- 3566 Aug, [facility] [place] [facility] [address] [facility] [id number] [place] [address]- 2260 Aug, [facility] [place] [facility] [address] [id number] [place] [address]- 0406 Aug, [facility] [place] [facility] [address] [id number] [place] [address]- 3804 Aug, [facility] [place] [facility] [address] [id number] [place] [address]- 3965 Jul, [facility] [place] [facility] [address] [id number] [place] [address]- 1962 Apr, [facility] [place] [facility] [address] [facility] [id number] [place] [address]- 8149 February, [facility] [place] [facility] [address] [id number] [place] [address]- 7432 Jan, [facility] [address] [id number] [place] [address]- 9510 Jan, [facility] [place] [facility] [address] [id number] [place] [address]- 2446 Dec, [facility] [place] [facility] [address] [id number] [place] [address]- 8264 Dec, [facility] [place] [facility] [address] [id number] [place] [address]- 7065 Oct, [facility] [place] [facility] [address] [id number] [place] [address]- 3577 Oct, [facility] [address] [id number] [place] [address]- 1126 February, [facility] [address] [id number] [place] [address]- 4807 Sep, [facility] [address] [id number] [place] [address]- 3006 Jul, [facility] [address] [id number] [place] [address]- 4883 Jul, [facility] [place] [facility] [address] [id number] [place] [address]- 6295 Jul, [facility] [address] [id number] [place] [address]- 1520 17 Jun, 2010 [facility] [place] [facility] [address] [id number] [place] [address]- 9054 15 Sep, 2009 [facility] [place] [facility] [address] [id number] [place] [address]- 9144 Sep, [facility] [place] [facility] [address] [id number] [place] [address]- 0904 09 Sep, 2009 [facility] [place] [facility] [address] [id number] [place] [address]- 3310 Jun, [facility] [address] [facility] [id number] [place] [address] [address]94 Dec, IMMUNIZATIONS No Known Immunizations SOCIAL HISTORY Never Assessed REASON FOR VISIT FYI only PLAN OF CARE VITAL SIGNS MEDICATIONS Unknown Medications RESULTS No Results PROCEDURES No Known procedures INSTRUCTIONS MEDICATIONS ADMINISTERED No Known Medications MEDICAL (GENERAL) HISTORY Type Description Date Medical History diabetes type 1 Medical History hypertension Medical History asthma Medical History depression Medical History Diabetic Macular Edema Surgical History 1985, 1988, 1991, 1994 Hospitalization History multiple
--- OUTSIDE RECORDS SUMMARY | 2018-08-17 23:57 | XMS REPORT ---
Author Author DEL MARSHALL [facility] Address [address] [place] [address] Care Team Providers Care Director Government Name Role Phone DEL MARSHALL Unavailable PROBLEMS Type Condition ICD9-CM Code BAI75-IH Code Onset Dates Condition Status SNOMED Code Problem Anxiety state, unspecified F41.1 Active 787784425 Problem Migraine without status migrainosus, not intractable, unspecified migraine type G43.909 Active 77939126 Problem Depressive disorder, not elsewhere classified F32.9 Active 27564577 Problem alf current use of insulin Z79.4 Active 574788194 Problem Type 2 diabetes mellitus with diabetic polyneuropathy E11.42 Active 74822680 Problem Mild intermittent asthma without complication J45.20 Active 280801902 Problem Essential hypertension I10 Active 24099133 Problem Mixed hyperlipidemia E78.2 Active 850345517 Problem Hospital discharge follow-up Z09 Active 325490746 Problem Local infection of the skin and subcutaneous tissue, unspecified L08.9 Active 346328749 Problem Unspecified staphylococcus as the cause of diseases classified elsewhere B95.8 Active 27380764 Problem Chronic kidney disease, unspecified CKD stage N18.9 Active 676723007 Problem Lumbar radiculopathy, chronic M54.16 Active 721842774 ALLERGIES Substance Reaction Event Type Date Status Metformin HCl Unknown Drug Allergy Mar, Active Ketorolac Tromethamine nausea Drug Allergy Mar, Active Hydrocodone Bitartrate hives Drug Allergy Mar, Active Biaxin Unknown Drug Allergy Mar, Active Amoxicillin Yeast Infections Drug Allergy Mar, Active ENCOUNTERS Encounter Location Date Diagnosis [facility] [address] [id number] [address] May, Mixed hyperlipidemia E78.2 [facility] [address] [id number] [place] [address] May, Type 2 diabetes mellitus with diabetic polyneuropathy E11.42 and Mixed hyperlipidemia E78.2 [facility] [id number] [place] [address] 64881- 3035 May, Type 2 diabetes mellitus with diabetic polyneuropathy E11.42 ; alf current use of insulin Z79.4 ; Hospital discharge follow-up Z09 ; Dehydration E86.0 ; Chronic kidney disease, unspecified CKD stage N18.9 and Yeast vaginitis B37.3 [facility] [id number] [place] [address] 50490- 9996 Apr, Lumbar radiculopathy M54.16 [facility] [id number] [place] [address] 40783- 7446 Apr, Lumbar radiculopathy, chronic M54.16 ; Type 2 diabetes mellitus with diabetic polyneuropathy E11.42 ; Dysuria R30.0 and Essential hypertension I10 [facility] [id number] [place] [address] 14707- 1615 Apr, Type 2 diabetes mellitus with diabetic polyneuropathy E11.42 [facility] [id number] [place] [address] 03497- 4944 Apr, [facility] [id number] [place] [address] 35017- 4621 Apr, [facility] [id number] [place] [address] 43255- 4825 Mar, [facility] [id number] [place] [address] 54361- 6258 Mar, Anxiety state, unspecified F41.1 [facility] [id number] [place] [address] 72349- 9608 Mar, Local infection of the skin and subcutaneous tissue, unspecified L08.9 ; Unspecified staphylococcus as the cause of diseases classified elsewhere B95.8 ; Type 2 diabetes mellitus with diabetic polyneuropathy E11.42 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 [facility] [id number] [place] [address] 67898- 7321 Mar, [facility] [id number] [place] [address] 87012- 4429 February, Type 2 diabetes mellitus 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 ; 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 [id number] [place] [address] 79533 -3682 Dec, Dog bite, initial encounter W54.0XXA [facility] [id number] [place] [address] 53848- 9021 Dec, [facility] [address] [address]- 7249 Nov, [facility] [id number] [place] [address] 05015- 5995 Oct, [facility] [address] [place] [address] Oct, Fissure in skin of foot R23.4 [facility] [id number] [place] [address] 19825- 2101 Oct, [facility] [id number] [place] [address] 41608- 0428 Oct, [facility] [id number] [place] [address] 35018- 3828 Oct, [facility] [id number] [place] [address] 16094- 1251 Oct, Type 2 diabetes mellitus with diabetic polyneuropathy E11.42 [facility] [id number] [place] [address] 82354- 9209 Oct, Anxiety state, unspecified F41.1 and Depressive disorder, not elsewhere classified F32.9 [facility] [id number] [place] [address] 71107- 3492 Oct, [facility] [id number] [place] [address] 03241- 7393 Oct, [facility] [id number] [place] [address] 64854- 1405 Sep, Essential hypertension I10 [facility] [id number] [place] [address] 51192- 3155 14 Sep, 2017 [facility] [id number] [place] [address] 97034- 8252 Sep, Type 2 diabetes mellitus with diabetic polyneuropathy E11.42 and Neuropathic ulcer of foot, unspecified laterality, unspecified ulcer stage L97.509 [facility] [id number] [place] [address] 80297- 5433 Sep, Neuropathic ulcer of foot, unspecified laterality, unspecified ulcer stage L97.509 and Acute vaginitis N76.0 [facility] [id number] [place] [address] 51802- 3277 Sep, Type 2 diabetes mellitus with diabetic polyneuropathy E11.42 ; alf current use of insulin Z79.4 ; Essential hypertension I10 ; 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 ; Reactive depression F32.9 ; Acute vaginitis N76.0 and Mild intermittent asthma without complication J45.20 [facility] [address] [id number] [address] 8[address] 17 Jul, 2017 [facility] [id number] [place] [address] 43248 -6260 Jun, [facility] [id number] [place] [address] 53060- 8763 May, [facility] [id number] [place] [address] 12918 -2047 May, Cellulitis L03.90 [facility] [id number] [place] [address] 57024- 3409 Mar, [facility] [id number] [place] [address] 30520- 7795 Jan, [facility] [id number] [place] [address] 41538- 2482 Jan, [facility] [id number] [place] [address] 15251- 1490 Sep, [facility] [id number] [place] [address] 39574- 6446 Sep, [facility] [id number] [place] [address] 19274- 7647 Apr, [facility] [id number] [place] [address] 814424- 9622 Apr, [facility] [id number] [place] [address] 34292- 8799 Apr, [facility] [id number] [place] [address] 039688- 8425 Apr, [facility] [place] [facility] [address] [id number] [place] [address]- 9724 Apr, 2013 [facility] [place] [facility] [address] [id number] [place] [address]- 4041 Apr, [facility] [place] [facility] [address] [id number] [place] [address]- 3212 Apr, [facility] [place] [facility] [address] [id number] [place] [address]- 1605 Apr, [facility] [place] [facility] [address] [id number] [place] [address]- 7580 Mar, [facility] [place] [facility] [address] [id number] [place] [address]- 3490 Mar, [facility] [place] [facility] [address] [id number] [place] [address]- 8871 Mar, [facility] [place] [facility] [address] [id number] [place] [address]- 3043 Mar, [facility] [place] [facility] [address] [id number] [place] [address]- 9560 Mar, [facility] [place] [facility] [address] [id number] [place] [address]- 8717 Mar, [facility] [place] [facility] [address] [id number] [place] [address]- 6180 Mar, [facility] [place] [facility] [address] [id number] [place] [address]- 5909 Mar, [facility] [place] [facility] [address] [id number] [place] [address]- 5004 Mar, [facility] [place] [facility] [address] [id number] [place] [address]- 1606 18 Mar, 2014 [facility] [place] [facility] [address] [id number] [place] [address]- 6582 16 Mar, 2014 [facility] [place] [facility] [address] [id number] [place] [address]- 7146 15 Mar, 2014 [facility] [place] [facility] [address] [id number] [place] [address]- 6053 Mar, [facility] [place] [facility] [address] [id number] [place] [address]- 9657 Mar, [facility] [place] [facility] [address] [id number] [place] [address]- 5467 Mar, [facility] [place] [facility] [address] [id number] [place] [address]- 6676 Mar, [facility] [place] [facility] [address] [id number] [place] [address]- 6034 Mar, [facility] [place] [facility] [address] [id number] [place] [address]- 5355 Mar, [facility] [place] [facility] [address] [id number] [place] [address]- 1458 Mar, [facility] [place] [facility] [address] [id number] [place] [address]- 4998 February, [facility] [place] [facility] [address] [id number] [place] [address]- 0717 February, [facility] [place] [facility] [address] [id number] [place] [address]- 1034 Jan, [facility] [place] [facility] [address] [id number] [place] [address]- 5967 24 Jan, 2014 [facility] [place] [facility] [address] [id number] [place] [address]- 1762 18 Jan, 2014 [facility] [place] [facility] [address] [id number] [place] [address]- 8131 18 Jan, 2014 [facility] [place] [facility] [address] [id number] [place] [address]- 1487 Jan, [facility] [place] [facility] [address] [id number] [place] [address]- 8613 Jan, [facility] [place] [facility] [address] [id number] [place] [address]- 7118 14 Jan, 2014 [facility] [address] [id number] [place] [address]- 4642 11 Jan, 2014 [facility] [place] [facility] [address] [id number] [place] [address]- 7703 10 Jan, 2014 [facility] [address] [id number] [place] [address]- 6889 10 Jan, 2014 [facility] [place] [facility] [address] [id number] [place] [address]- 7425 17 Dec, 2013 [facility] [place] [facility] [address] [id number] [place] [address]- 3724 17 Dec, 2013 [facility] [place] [facility] [address] [id number] [place] [address]- 3935 11 Dec, 2013 [facility] [place] [facility] [address] [id number] [place] [address]- 8596 11 Dec, 2013 [facility] [place] [facility] [address] [id number] [place] [address]- 6944 10 Dec, 2013 [facility] [place] [facility] [address] [id number] [place] [address]- 6741 10 Dec, 2013 [facility] [place] [facility] [address] [id number] [place] [address]- 1416 07 Dec, 2013 [facility] [place] [facility] [address] [id number] [place] [address]- 3165 07 Dec, 2013 [facility] [place] [facility] [address] [id number] [place] [address]- 6678 Dec, [facility] [place] [facility] [address] [id number] [place] [address]- 1310 Dec, [facility] [place] [facility] [address] [id number] [place] [address]- 4106 Oct, [facility] [place] [facility] [address] [id number] [place] [address]- 7128 Oct, [facility] [address] [id number] [place] [address]- 9312 Jul, [facility] [place] [facility] [address] [id number] [place] [address]- 8884 Jul, [facility] [place] [facility] [address] [id number] [place] [address]- 5073 08 Jul, 2013 [facility] [place] [facility] [address] [id number] [place] [address]- 0788 27 Jun, 2013 [facility] [place] [facility] [address] [id number] [place] [address]- 2222 26 Jun, 2013 [facility] [place] [facility] [address] [id number] [place] [address]- 8794 Jun, [facility] [place] [facility] [address] [id number] [place] [address]- 4461 24 Jun, 2013 [facility] [place] [facility] [address] [id number] [place] [address]- 8384 Apr, [facility] [place] [facility] [address] [id number] [place] [address]- 0539 February, [facility] [place] [facility] [address] [id number] [place] [address]- 8471 Nov, [facility] [place] [facility] [address] [id number] [place] [address]- 2800 Nov, [facility] [place] [facility] [address] [id number] [place] [address]- 1300 Nov, [facility] [place] [facility] [address] [id number] [place] [address]- 0273 Sep, [facility] [place] [facility] [address] [id number] [place] [address]- 8762 Sep, [facility] [place] [facility] [address] [id number] [place]- 5801 Sep, [facility] [place] [facility] [address] [id number] [place] [address]- 0991 18 Sep, 2012 [facility] [place] [facility] [address] [id number] [place] [address]- 6766 Sep, [facility] [place] [facility] [address] [id number] [place] [address]- 5006 Sep, [facility] [place] [facility] [address] [id number] [place] [address]- 3956 Sep, [facility] [place] [facility] [address] [id number] [place] [address]- 7969 Sep, [facility] [place] [facility] [address] [id number] [place] [address]- 9582 Sep, [facility] [place] [facility] [address] [id number] [place] [address]- 3298 Sep, [facility] [place] [facility] [address] [id number] [place] [address]- 1268 Aug, [facility] [place] [facility] [address] [id number] [place] [address]- 6946 Aug, [facility] [place] [facility] [address] [id number] [place] [address]- 6671 Aug, [facility] [place] [facility] [address] [id number] [place] [address]- 6066 Aug, [facility] [place] [facility] [address] [id number] [place] [address]- 5858 Aug, [facility] [place] [facility] [address] [id number] [place] [address]- 9761 Jul, [facility] [place] [facility] [address] [id number] [place] [address]- 1925 Apr, [facility] [place] [facility] [address] [id number] [place] [address]- 7913 February, [facility] [place] [facility] [address] [id number] [place] [address]- 9715 Jan, [facility] [place] [facility] [address] [id number] [place] [address]- 4127 Jan, [facility] [address] [id number] [place] [address]- 4565 14 Dec, 2011 [facility] [place] [facility] [address] [id number] [place] [address]- 8136 06 Dec, 2011 [facility] [address] [id number] [place] [address]- 4059 Oct, [facility] [address] [id number] [place] [address]- 3711 Oct, [facility] [address] [id number] [place] [address]- 5434 February, [facility] [address] [id number] [place] [address]- 8968 Sep, [facility] [address] [id number] [place] [address]- 5297 Jul, [facility] [address] [id number] [place] [address]- 1763 Jul, [facility] [address] [id number] [place] [address]- 9458 13 Jul, 2010 [facility] [place] [facility] [address] [id number] [place] [address]- 4696 17 Jun, 2010 [facility] [address] [id number] [place] [address]- 8948 15 Sep, 2009 [facility] [place] [facility] [address] [id number] [place] [address]- 9536 11 Sep, 2009 [facility] [place] [facility] [address] [id number] [place] [address]- 7228 09 Sep, 2009 [facility] [place] [facility] [address] [id number] [place] [address]- 5720 15 Jun, 2009 [facility] [place] [facility] [address] [id number] [place] [address]- 7383 Dec, IMMUNIZATIONS No Known Immunizations SOCIAL HISTORY Never Assessed REASON FOR VISIT finger infection, hurts clear up her arm into her neck and the pinky finger- BELÉN Dueñas, Pt is tired of the Levemir pens because they are not dialing or working correctly PLAN OF CARE Activity Details Follow Up 3 Months, prn w/ PCP Reason:DM VITAL SIGNS Height 64 in 2018-03-13 Weight 216.1 lbs 2018-03-13 Temperature 97.6 degrees Fahrenheit 2018-03-13 Heart Rate 88 bpm 2018-03-13 Respiratory Rate 18 2018-03-13 BMI 37.09 kg/m2 2018-03-13 Blood pressure systolic 132 mmHg 2018-03-13 Blood pressure diastolic 84 mmHg 2018-03-13 MEDICATIONS Medication Instructions Dosage Frequency Start Date End Date Duration Status Sulfamethoxazole-Trimethoprim 800-160 MG Orally Twice a day 1 tablet 12h Mar, Mar, 10 day(s) Active Lorazepam 1 MG Orally twice a day, prnanxiety 1 Sep, 28 days Active Glucocard Expression Monitor w/Device as directed Sep, Active Glucocard Expression Test - In Vitro 3 times a day test strips 8h Sep, Active Celexa 40 mg Orally Once a day 0.5 tablet 24h 30 days Active Lisinopril 20 mg Orally Once a day 1 tablet 24h Active Levemir 100 UNIT/ML Subcutaneous once a day Inject 15 units 24h Mar, 30 days Active Ventolin HFA 108 (90 Base) MCG/ACT Inhalation every 6 hrs 2 puffs as needed 6h Sep, Active Aleve 220 MG Orally every 12 hrs 1 tablet with food or milk as needed 12h Active Metoclopramide HCl 10 mg Orally 3 times a day 0.5 tablet 8h Active Metoprolol Succinate ER 25 MG Orally Once a day 1 tablet 24h Active Gabapentin 300 MG Orally 3 times a day 1cap 8h Dec, Active Humalog KwikPen 100 unit/mL Subcutaneous 3 times a day inject 15 UnITS by Subcutaneous route as per insulin sliding scale protocol 3 times per day BEFORE MEALS 8h Mar, Active NovoFine 30G X 8 MM subcutaneously use with insulin use to inject insulin Nov, Not-Taking RESULTS No Results PROCEDURES No Known procedures INSTRUCTIONS MEDICATIONS ADMINISTERED No Known Medications MEDICAL (GENERAL) HISTORY Type Description Date Medical History diabetes type 1 Medical History hypertension Medical History asthma Medical History depression Medical History Diabetic Macular Edema Surgical History 1985, 1988, 1991, 1994 Hospitalization History multiple
--- OUTSIDE RECORDS SUMMARY | 2018-08-17 23:57 | XMS REPORT ---
Author Author ALVA BENTLEY [facility] Address [address] [place] [address] Care Team Providers Care General Utility Maintenance Repairer Name Role Phone ALVA BENTLEY Unavailable PROBLEMS Type Condition ICD9-CM Code YKL02-FQ Code Onset Dates Condition Status SNOMED Code Problem Anxiety state, unspecified F41.1 Active 153699646 Problem Migraine without status migrainosus, not intractable, unspecified migraine type G43.909 Active 07959429 Problem Depressive disorder, not elsewhere classified F32.9 Active 41164856 Problem penitentiary current use of insulin Z79.4 Active 365436385 Problem Type 2 diabetes mellitus with diabetic polyneuropathy E11.42 Active 02519351 Problem Mild intermittent asthma without complication J45.20 Active 965511071 Problem Essential hypertension I10 Active 15105021 Problem Mixed hyperlipidemia E78.2 Active 944119470 Problem Hospital discharge follow-up Z09 Active 007843093 Problem Local infection of the skin and subcutaneous tissue, unspecified L08.9 Active 843770441 Problem Unspecified staphylococcus as the cause of diseases classified elsewhere B95.8 Active 44492089 Problem Chronic kidney disease, unspecified CKD stage N18.9 Active 409698514 Problem Lumbar radiculopathy, chronic M54.16 Active [id number] ALLERGIES No Information ENCOUNTERS Encounter Location Date Diagnosis [facility] [id number], [place] [address] May, [facility] [address], [place] [address] May, [facility] [id number] [place] [address] 10752- 9265 May, [facility] [address], [place] [address] May, Mixed hyperlipidemia E78.2 [facility] [id number] [place] [address] 41013- 9337 16 May, 2018 Type 2 diabetes mellitus with diabetic polyneuropathy E11.42 and Mixed hyperlipidemia E78.2 [place] [id number] [place] [address] 83086- 2357 15 May, 2018 Type 2 diabetes mellitus with diabetic polyneuropathy E11.42 ; 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 ; Hospital discharge follow-up Z09 ; Dehydration E86.0 ; Chronic kidney disease, unspecified CKD stage N18.9 and Yeast vaginitis B37.3 [place] [id number] [place] [address] 18592- 6960 Apr, Lumbar radiculopathy M54.16 [place] [id number] [place] [address] 22298- 1472 Apr, Lumbar radiculopathy, chronic M54.16 ; Type 2 diabetes mellitus with diabetic polyneuropathy E11.42 ; Dysuria R30.0 and Essential hypertension I10 [place] [id number] [place] [address] 52858- 7849 Apr, Type 2 diabetes mellitus with diabetic polyneuropathy E11.42 [place] [facility] [id number] [place] [address] 62943- 0157 Apr, [place] [id number] [place] [address] 97422- 0268 Apr, [place] [id number] [place] [address] 21781- 5351 Mar, [place] [id number] [place] [address] 89778- 6939 Mar, Anxiety state, unspecified F41.1 [place] [id number] [place] [address] 02580- 4908 Mar, Local infection of the skin and subcutaneous tissue, unspecified L08.9 ; Unspecified staphylococcus as the cause of diseases classified elsewhere B95.8 ; Type 2 diabetes mellitus with diabetic polyneuropathy E11.42 and penitentiary current use of insulin Z79.4 [place] [id number] [place] [address] 52439- 9176 Mar, [facility] [id number] [place] [address] 62857- 0868 February, Type 2 diabetes mellitus with diabetic polyneuropathy E11.42 ; 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 ; Essential hypertension I10 ; Anxiety state, unspecified F41.1 ; Depressive disorder, not elsewhere classified F32.9 and Dysuria R30.0 [place] [id number] [place] [address] 56307- 0452 Jan, Type 2 diabetes mellitus with diabetic polyneuropathy E11.42 [place] [id number] [place] [address] 56516- 8539 Jan, Type 2 diabetes mellitus with diabetic polyneuropathy E11.42 [place] [address] [address]- [address]45 Jan, [facility] [id number] [place] [address] 33681 -3580 Dec, Migraine without status migrainosus, not intractable, unspecified migraine type G43.909 [place] [id number] [place] [address] 16972- 7524 Dec, Type 2 diabetes mellitus with diabetic polyneuropathy E11.42 ; 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 ; Dog bite, subsequent encounter W54.0XXD and Essential hypertension I10 [facility] [id number] [place] [address] 06586 -9076 Dec, Dog bite, initial encounter W54.0XXA [place] [id number] [place] [address] 90250- 7774 Dec, [facility] [id number] [place] [address] 64358- 6931 Nov, [place] [address] [place] [address]- 0844 Oct, [facility] [id number] [place] [address] 71498 -7400 Oct, Fissure in skin of foot R23.4 [facility] [id number] [place] [address] 30036- 1486 Oct, [facility] [id number] [place] [address] 91011- 6360 Oct, [facility] [id number] [place] [address] 19442- 8089 Oct, [facility] [id number] [place] [address] 78497- 5978 Oct, Type 2 diabetes mellitus with diabetic polyneuropathy E11.42 [facility] [id number] [place] [address] 34836- 9050 Oct, Anxiety state, unspecified F41.1 and Depressive disorder, not elsewhere classified F32.9 [facility] [id number] [place] [address] 16871- 2301 Oct, [facility] [id number] [place] [address] 36345- 3133 Oct, [facility] [id number] [place] [address] 01980- 5196 Sep, Essential hypertension I10 [facility] [id number] [place] [address] 02405- 8657 14 Sep, 2017 [facility] [id number] [place] [address] 89354- 1212 Sep, Type 2 diabetes mellitus with diabetic polyneuropathy E11.42 and Neuropathic ulcer of foot, unspecified laterality, unspecified ulcer stage L97.509 [facility] [address], [place] [address] Sep, Neuropathic ulcer of foot, unspecified laterality, unspecified ulcer stage L97.509 and Acute vaginitis N76.0 [facility] [address], [place] [address]- 2683 12 Sep, 2017 Type 2 diabetes mellitus with diabetic polyneuropathy E11.42 ; penitentiary current use of insulin Z79.4 ; Essential hypertension I10 ; 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 ; Reactive depression F32.9 ; Acute vaginitis N76.0 and Mild intermittent asthma without complication J45.20 [facility] [id number] [place] [address] 07852- 2271 17 Jul, 2017 [facility] [id number] [place] [address] 85206 -3490 Jun, [facility] [id number] [place] [address] 75769- 6602 May, [facility] [id number] [place] [address] 84227 -8704 May, Cellulitis L03.90 [facility] [id number] [place] [address] 75122- 2865 Mar, [facility] [id number] [place] [address] 93052- 2262 Jan, [facility] [id number] [place] [address] 03701- 3861 Jan, [facility] [id number] [place] [address] 86573- 6244 Sep, [facility] [id number] [place] [address] 79698- 8761 Sep, [facility] [id number] [place] [address] 672242- 8188 Apr, [facility] [id number] [place] [address] 734901- 8652 Apr, [facility] [id number] [place] [address] 976645- 8036 Apr, [facility] [place] [facility] [address] [id number] [place] [address]- 6071 Apr, 2013 [facility] [place] [facility] [address] [id number] [place] [address]- 2121 Apr, [facility] [place] [facility] [address] [id number] [place] [address]- 6918 Apr, [facility] [place] [facility] [address] [id number] [place] [address]- 9889 Apr, [facility] [place] [facility] [address] [id number] [place] [address]- 8418 Apr, [facility] [place] [facility] [address] [id number] [place] [address]- 7711 Mar, [facility] [place] [facility] [address] [id number] [place] [address]- 2731 Mar, [facility] [place] [facility] [address] [id number] [place] [address]- 3096 Mar, [facility] [place] [facility] [address] [id number] [place] [address]- 3133 Mar, [facility] [place] [facility] [address] [id number] [place] [address]- 2531 Mar, [facility] [place] [facility] [address] [id number] [place] [address]- 6673 Mar, [facility] [place] [facility] [address] [id number] [place] [address]- 8139 Mar, [facility] [place] [facility] [address] [id number] [place] [address]- 5319 Mar, [facility] [place] [facility] [address] [id number] [place] [address]- 7616 Mar, [facility] [place] [facility] [address] [id number] [place] [address]- 1730 Mar, [facility] [place] [facility] [address] [id number] [place] [address]- 3310 16 Mar, 2014 [facility] [place] [facility] [address] [id number] [place] [address]- 6831 15 Mar, 2014 [facility] [place] [facility] [address] [id number] [place] [address]- 2036 13 Mar, 2014 [facility] [place] [facility] [address] [id number] [place] [address]- 2316 Mar, [facility] [place] [facility] [address] [id number] [place] [address]- 2229 11 Mar, 2014 [facility] [place] [facility] [address] [id number] [place] [address]- 0340 Mar, [facility] [place] [facility] [address] [id number] [place] [address]- 3185 Mar, [facility] [place] [facility] [address] [id number] [place] [address]- 7763 Mar, [facility] [place] [facility] [address] [id number] [place] [address]- 0048 Mar, [facility] [place] [facility] [address] [id number] [place] [address]- 9515 February, [facility] [place] [facility] [address] [id number] [place] [address]- 0929 February, [facility] [place] [facility] [address] [id number] [place] [address]- 0111 24 Jan, 2014 [facility] [place] [facility] [address] [id number] [place] [address]- 4020 24 Jan, 2014 [facility] [place] [facility] [address] [id number] [place] [address]- 0369 18 Jan, 2014 [facility] [place] [facility] [address] [id number] [place] [address]- 4490 18 Jan, 2014 [facility] [place] [facility] [address] [id number] [place] [address]- 7339 17 Jan, 2014 [facility] [place] [facility] [address] [id number] [place] [address]- 7714 17 Jan, 2014 [facility] [address] [id number] [place] [address]- 9352 14 Jan, 2014 [facility] [place] [facility] [address] [id number] [place] [address]- 4954 11 Jan, 2014 [facility] [address] [id number] [place] [address]- 8383 10 Jan, 2014 [facility] [place] [facility] [address] [id number] [place] [address]- 8121 10 Jan, 2014 [facility] [address] [id number] [place] [address]- 5110 17 Dec, 2013 [facility] [place] [facility] [address] [id number] [place] [address]- 7972 17 Dec, 2013 [facility] [place] [facility] [address] [id number] [place] [address]- 8943 Dec, [facility] [place] [facility] [address] [id number] [place] [address]- 7277 11 Dec, 2013 [facility] [place] [facility] [address] [id number] [place] [address]- 3012 Dec, [facility] [address] [id number] [place] [address]- 8536 10 Dec, 2013 [facility] [place] [facility] [address] [id number] [place] [address]- 6740 07 Dec, 2013 [facility] [place] [facility] [address] [id number] [place] [address]- 2058 07 Dec, 2013 [facility] [place] [facility] [address] [id number] [place] [address]- 7127 03 Dec, 2013 [facility] [place] [facility] [address] [id number] [place] [address]- 5336 Dec, [facility] [place] [facility] [address] [id number] [place] [address]- 8147 Oct, [facility] [address] [id number] [place] [address]- 7219 Oct, [facility] [place] [facility] [address] [id number] [place] [address]- 1633 Jul, [facility] [place] [facility] [address] [id number] [place] 4154 Jul, [facility] [place] [facility] [address] [id number] [place] [address]- 4679 Jul, [facility] [address] [id number] [place] [address]- 8095 Jun, [facility] [place] [facility] [address] [id number] [place] [address]- 8672 Jun, [facility] [place] [facility] [address] [id number] [place] [address]- 6132 Jun, [facility] [place] [facility] [address] [id number] [place] [address]- 8791 Jun, [facility] [place] [facility] [address] [id number] [place] [address]- 8603 Apr, [facility] [place] [facility] [address] [id number] [place] [address]- 3615 February, [facility] [place] [facility] [address] [id number] [place] [address]- 5996 Nov, [facility] [place] [facility] [address] [id number] [address]- 0936 Nov, [facility] [place] [facility] [address] [id number] [place] [address]- 2670 Nov, [facility] [place] [facility] [address] [id number] [place] [address]- 3676 Sep, [facility] [place] [facility] [address] [id number] [place] [address]- 6597 Sep, [facility] [place] [facility] [address] [id number] [place] [address]- 6337 18 Sep, 2012 [facility] [place] [facility] [address] [id number] [place] 2118 18 Sep, 2012 [facility] [place] [facility] [address] [id number] [place] 2876 Sep, [facility] [place] [facility] [address] [id number] [place] [address]- 0526 Sep, [facility] [place] [facility] [address] [id number] [place] [address]- 3391 Sep, [facility] [place] [facility] [address] [id number] [place] [address]- 2626 Sep, [facility] [place] [facility] [address] [id number] [place] [address]- 1345 Sep, [facility] [place] [facility] [address] [id number] [place] [address]- 9457 Sep, [facility] [place] [facility] [address] [id number] [place] [address]- 3452 Aug, [facility] [place] [facility] [address] [id number] [place] [address]- 3311 Aug, [facility] [place] [facility] [address] [facility] [id number] [place] [address]- 1779 Aug, [facility] [place] [facility] [address] [id number] [place] [address]- 1154 Aug, [facility] [place] [facility] [address] [id number] [place] [address]- 4572 Aug, [facility] [place] [facility] [address] [id number] [place] [address]- 7632 Jul, [facility] [place] [facility] [address] [id number] [place] [address]- 8917 Apr, [facility] [place] [facility] [address] [facility] [id number] [place] [address]- 7669 February, [facility] [place] [facility] [address] [id number] [place] [address]- 6825 Jan, [facility] [address] [id number] [place] [address]- 2321 Jan, [facility] [place] [facility] [address] [id number] [place] [address]- 2856 Dec, [facility] [place] [facility] [address] [id number] [place] [address]- 9342 Dec, [facility] [place] [facility] [address] [id number] [place] [address]- 1784 Oct, [facility] [place] [facility] [address] [id number] [place] [address]- 2604 Oct, [facility] [address] [id number] [place] [address]- 9175 February, [facility] [address] [id number] [place] [address]- 2184 Sep, [facility] [address] [id number] [place] [address]- 1434 Jul, [facility] [address] [id number] [place] [address]- 3383 Jul, [facility] [place] [facility] [address] [id number] [place] [address]- 7874 Jul, [facility] [address] [id number] [place] [address]- 3921 17 Jun, 2010 [facility] [place] [facility] [address] [id number] [place] [address]- 5767 15 Sep, 2009 [facility] [place] [facility] [address] [id number] [place] [address]- 3183 Sep, [facility] [place] [facility] [address] [id number] [place] [address]- 8090 09 Sep, 2009 [facility] [place] [facility] [address] [id number] [place] [address]- 5663 Jun, [facility] [address] [facility] [id number] [place] [address]19 Dec, IMMUNIZATIONS No Known Immunizations SOCIAL HISTORY Never Assessed REASON FOR VISIT PLAN OF CARE VITAL SIGNS MEDICATIONS Medication Instructions Dosage Frequency Start Date End Date Duration Status Celexa 20 MG Orally Once a day 1 tablet [...]
--- OUTSIDE RECORDS SUMMARY | 2018-08-17 23:57 | XMS REPORT ---
Author Author ALVA BENTLEY [facility] Address [address] [place] [address] Care Team Providers Care Steelscope Operator Name Role Phone ALVA BENTLEY Unavailable PROBLEMS Type Condition ICD9-CM Code KWE09-IY Code Onset Dates Condition Status SNOMED Code Problem retirement current use of insulin Z79.4 Active 451832319 Problem Essential hypertension I10 Active 81025982 Problem Mild intermittent asthma without complication J45.20 Active 779164612 Problem Type 2 diabetes mellitus with diabetic polyneuropathy E11.42 Active 87992524 Problem Lumbar radiculopathy, chronic M54.16 Active 368514292 Problem Unspecified staphylococcus as the cause of diseases classified elsewhere B95.8 Active 91956619 Problem Depressive disorder, not elsewhere classified F32.9 Active 15715954 Problem Anxiety state, unspecified F41.1 Active 356117764 Problem Local infection of the skin and subcutaneous tissue, unspecified L08.9 Active 228653482 Problem Migraine without status migrainosus, not intractable, unspecified migraine type G43.909 Active 29574997 ALLERGIES Substance Reaction Event Type Date Status Metformin HCl Unknown Drug Allergy February, Active Ketorolac Tromethamine nausea Drug Allergy February, Active Hydrocodone Bitartrate hives Drug Allergy February, Active Biaxin Unknown Drug Allergy February, Active Amoxicillin Yeast Infections Drug Allergy February, Active ENCOUNTERS Encounter Location Date Diagnosis [facility] [id number] [address] Apr, Lumbar radiculopathy M54.16 [facility] [address], [place] [address] Apr, Lumbar radiculopathy, chronic M54.16 ; Type 2 diabetes mellitus with diabetic polyneuropathy E11.42 ; Dysuria R30.0 and Essential hypertension I10 [facility] [address], [place] [address] Apr, Type 2 diabetes mellitus with diabetic polyneuropathy E11.42 [address] [address] Apr, [address] [place] [address] Apr, [address] [id number] [place] [address]- [address]89 Mar, [address], [place] [address] Mar, Anxiety state, unspecified F41.1 [address], [place] [address] Mar, Local infection of the skin and subcutaneous tissue, unspecified L08.9 ; Unspecified staphylococcus as the cause of diseases classified elsewhere B95.8 ; Type 2 diabetes mellitus 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 and 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.4 [address] [address] Mar, [place] [facility] [id number] [address] February, Type 2 diabetes mellitus with diabetic polyneuropathy E11.42 ; 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.4 ; Essential hypertension I10 ; Anxiety state, unspecified F41.1 ; Depressive disorder, not elsewhere classified F32.9 and Dysuria R30.0 [address] [address], [place] [address] Jan, Type 2 diabetes mellitus with diabetic polyneuropathy E11.42 [address] [address] [address] Jan, Type 2 diabetes mellitus with diabetic polyneuropathy E11.42 [place] [id number] [address] Jan, [facility] [address] [place] [address] Dec, Migraine without status migrainosus, not intractable, unspecified migraine type G43.909 [facility] [id number] [place] [address]- 9717 Dec, Type 2 diabetes mellitus with diabetic polyneuropathy E11.42 ; 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.4 ; Dog bite, subsequent encounter W54.0XXD and Essential hypertension I10 [facility] [id number] [place] [address] Dec, Dog bite, initial encounter W54.0XXA [facility] [address] [address] Dec, [facility] [id number] [place] [address]- 8184 Nov, [facility] [id number] [place] [address]- 5801 Oct, [facility] [id number] [place] [address]606 Oct, Fissure in skin of foot R23.4 [facility] [id number] [place] [address] 56[address]- 2757 Oct, [facility] [id number] [place] [address] 26767- 2628 Oct, [facility] [id number] [place] [address]- 4614 Oct, [facility] [id number] [place] [address] 56726- 5782 Oct, Type 2 diabetes mellitus with diabetic polyneuropathy E11.42 [facility] [id number] [place] [address] 942[address]- 9165 Oct, Anxiety state, unspecified F41.1 and Depressive disorder, not elsewhere classified F32.9 [address] [id number], [place] [address] 16 Oct, 2017 [address] [id number] [place] [address] 68[address]- 9518 Oct, [facility] [id number] [place] [address] 78[address]- 8831 19 Sep, 2017 Essential hypertension I10 [place] [id number] [place] [address] 54[address]- 8445 14 Sep, 2017 [address] [place] [id number] [place] [address] 95238- 2750 Sep, Type 2 diabetes mellitus with diabetic polyneuropathy E11.42 and Neuropathic ulcer of foot, unspecified laterality, unspecified ulcer stage L97.509 [address] [id number] [place] [address] 62366- 1160 Sep, Neuropathic ulcer of foot, unspecified laterality, unspecified ulcer stage L97.509 and Acute vaginitis N76.0 [address] [address] [place] [address] 19254- 4630 12 Sep, 2017 Type 2 diabetes mellitus with diabetic polyneuropathy E11.42 ; retirement current use of insulin Z79.4 ; Essential hypertension I10 ; 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 ; Reactive depression F32.9 ; Acute vaginitis N76.0 and Mild intermittent asthma without complication J45.20 [address], [place] [address] Jul, [facility] [id number] [place] [address] Jun, [address] [id number] [place] [address] 06[address]- 7127 May, [facility] [address], [place] [address] May, Cellulitis L03.90 [place] [id number] [place] [address] Mar, [facility] [place] [facility] [address] [id number] [place] [address] 3813 14 Jan, 2015 [facility] [place] [facility] [address] [id number] [place] [address]- 7439 Jan, [facility] [place] [facility] [address] [id number] [place] [address]- 0351 Sep, [facility] [place] [facility] [address] [id number] [place] [address]- 2771 Sep, [facility] [place] [facility] [address] [id number] [place] [address]- 6522 Apr, [facility] [place] [facility] [address] [id number] [place] [address]- 2207 Apr, [facility] [place] [facility] [address] [id number] [place] [address]- 0520 Apr, [facility] [place] [facility] [address] [id number] [place] [address]- 9930 Apr, [facility] [place] [facility] [address] [id number] [place] [address]- 9164 Apr, [facility] [place] [facility] [address] [id number] [place] [address]- 2538 Apr, [facility] [place] [facility] [address] [id number] [place] [address]- 9192 Apr, [facility] [place] [facility] [address] [id number] [place] [address]- 2220 Apr, [facility] [place] [facility] [address] [id number] [place] [address]- 2711 Mar, [facility] [place] [facility] [address] [id number] [place] [address]- 6152 Mar, [facility] [place] [facility] [address] [id number] [place] [address]- 2894 Mar, [facility] [place] [facility] [address] [id number] [place] [address]- 6886 Mar, [facility] [place] [facility] [address] [id number] [place] [address]- 0052 Mar, [facility] [place] [facility] [address] [id number] [place] [address]- 1611 20 Mar, 2014 [facility] [place] [facility] [address] [id number] [place] [address]- 0048 Mar, [facility] [place] [facility] [address] [id number] [place] [address]- 8201 19 Mar, 2014 [facility] [place] [facility] [address] [id number] [place] [address]- 0568 18 Mar, 2014 [facility] [place] [facility] [address] [id number] [place] [address]- 3618 18 Mar, 2014 [facility] [place] [facility] [address] [id number] [place] [address]- 5122 16 Mar, 2014 [facility] [place] [facility] [address] [id number] [place] [address]- 6110 15 Mar, 2014 [facility] [place] [facility] [address] [id number] [place] [address]- 2637 13 Mar, 2014 [facility] [place] [facility] [address] [id number] [place] [address]- 5889 13 Mar, 2014 [facility] [place] [facility] [address] [id number] [place] [address]- 0667 11 Mar, 2014 [facility] [place] [facility] [address] [id number] [place] [address]- 8771 10 Mar, 2014 [facility] [place] [facility] [address] [id number] [place] [address]- 4255 10 Mar, 2014 [facility] [place] [facility] [address] [id number] [place] [address]- 4755 10 Mar, 2014 [facility] [place] [facility] [address] [id number] [place] [address]- 6128 Mar, [facility] [place] [facility] [address] [id number] [place] [address]- 6671 February, [facility] [place] [facility] [address] [id number] [place] [address]- 1717 February, [facility] [place] [facility] [address] [id number] [place] [address]- 8607 Jan, [facility] [place] [facility] [address] [id number] [place] [address]- 4352 Jan, [facility] [place] [facility] [address] [id number] [place] [address]- 0678 Jan, [facility] [place] [facility] [address] [id number] [place] [address]- 6850 Jan, [facility] [place] [facility] [address] [id number] [place] [address]- 2581 Jan, [facility] [place] [facility] [address] [id number] [place] [address]- 7901 Jan, [facility] [place] [facility] [address] [id number] [place] [address]- 1316 14 Jan, 2014 [facility] [place] [facility] [address] [id number] [place] [address]- 3556 Jan, [facility] [place] [facility] [address] [id number] [place] [address]- 2272 Jan, [facility] [place] [facility] [address] [id number] [place] [address]- 9454 Jan, [facility] [place] [facility] [address] [id number] [place] [address]- 4720 Dec, [facility] [place] [facility] [address] [id number] [place] [address]- 9204 Dec, [facility] [place] [facility] [address] [id number] [place] [address]- 4200 Dec, [facility] [place] [facility] [address] [id number] [place] [address]- 1437 11 Dec, 2013 [facility] [place] [facility] [address] [id number] [place] [address]- 3981 10 Dec, 2013 [facility] [place] [facility] [address] [id number] [place] [address]- 4245 10 Dec, 2013 [facility] [address] [id number] [place] [address]- 1028 07 Dec, 2013 [facility] [place] [facility] [address] [id number] [place] [address]- 5286 07 Dec, 2013 [facility] [place] [facility] [address] [id number] [place] [address]- 5419 Dec, [facility] [place] [facility] [address] [id number] [place] [address]- 6186 Dec, [facility] [place] [facility] [address] [id number] [place] [address]- 1352 Oct, [facility] [address] [id number] [place] [address]- 0303 Oct, [facility] [place] [facility] [address] [id number] [place] [address]- 5415 Jul, [facility] [address] [id number] [place] [address]- 2665 Jul, [facility] [place] [facility] [address] [id number] [place] [address]- 4014 08 Jul, 2013 [facility] [place] [facility] [address] [id number] [place] [address]- 2388 27 Jun, 2013 [facility] [place] [facility] [address] [id number] [place] [address]- 4304 26 Jun, 2013 [facility] [place] [facility] [address] [id number] [place] [address]- 8436 25 Jun, 2013 [facility] [place] [facility] [address] [id number] [place] [address]- 6832 Jun, [facility] [address] [id number] [place] [address]- 0261 Apr, [facility] [address] [id number] [place] [address]- 3848 February, [facility] [address] [id number] [place] [address]- 9908 Nov, [facility] [address] [id number] [place] [address]- 0087 Nov, [facility] [address] [id number] [place] [address]- 0437 Nov, [facility] [address] [id number] [place] [address]- 1032 Sep, [facility] [address] [id number] [place] [address]- 1135 Sep, [facility] [address] [id number] [place] [address]- 3776 Sep, [facility] [address] [id number] [place] [address]- 5080 Sep, [facility] [address] [id number] [place] [address]- 7919 Sep, [facility] [address] [id number] [address]- 6565 Sep, [facility] [place] [facility] [address] [id number], [place] [address]- 4808 Sep, [facility] [place] [facility] [address] [id number] [place] [address]- 9678 Sep, [facility] [place] [facility] [address] [id number] [place] [address]- 8885 06 Sep, 2012 [facility] [place] [facility] [address] [id number] [place] [address]- 9030 Sep, [facility] [address] [id number] [place] [address]- 0203 Aug, [facility] [address] [id number] [place] [address]- 8134 Aug, [facility] [place] [facility] [address] [id number] [place] [address]- 9344 Aug, [facility] [place] [facility] [address] [id number] [place] [address]- 6853 Aug, [facility] [place] [facility] [address] [id number] [place] [address]- 1937 Aug, [facility] [place] [facility] [address] [id number] [place] [address]- 9427 Jul, [facility] [place] [facility] [address] [id number] [place] [address]- 6210 Apr, [facility] [address] [id number] [place] [address]- 7769 February, [facility] [place] [facility] [address] [id number] [place] [address]- 5533 Jan, [facility] [place] [facility] [address] [id number] [place] [address]- 7681 Jan, [facility] [place] [facility] [address] [id number] [place] [address]- 8142 Dec, [facility] [place] [facility] [address] [id number] [place] [address]- 8232 Dec, [facility] [place] [facility] [address] [id number] [place] [address]- 1801 Oct, [facility] [place] [facility] [address] [id number] [place] [address]- 2912 Oct, [facility] [place] [facility] [address] [id number] [place] [address]- 0055 February, [facility] [place] [facility] [address] [id number] [place] [address]- 6855 Sep, [facility] [id number] [address]- 9502 Jul, [facility] [address] [address]- 8108 Jul, [facility] [address], [place] [address]- 5006 Jul, [facility] [address], [place] [address]- 1547 17 Jun, 2010 [facility] [address], [place] [address]- 4575 Sep, [facility] [address] [address]- 0618 Sep, [facility] [address], [place] [address]- 4563 Sep, [facility] [address] [address]- 2340 Jun, [facility] [id number] [address]- 5186 Dec, IMMUNIZATIONS No Known Immunizations SOCIAL HISTORY Never Assessed REASON FOR VISIT Diabetes, UTI, back pain and discomfort for about a month, Depression and Medication review - Niko Schwartz MA PLAN OF CARE Activity Details Follow Up 3 Months Reason: VITAL SIGNS Height 64 in 2018-02-19 Weight 216.3 lbs 2018-02-19 Temperature 99.3 degrees Fahrenheit 2018-02-19 Heart Rate 78 bpm 2018-02-19 Respiratory Rate 18 2018-02-19 BMI 37.12 kg/m2 2018-02-19 Blood pressure systolic 142 mmHg 2018-02-19 Blood pressure diastolic 84 mmHg 2018-02-19 MEDICATIONS Medication Instructions Dosage Frequency Start Date End Date Duration Status Metoprolol Succinate ER 25 MG Orally Once a day 1 tablet 24h Active Levemir Flexpen 100 unit/mL (3 mL) subcutaneously Once a day 15 UnITS 24h Mar, Active Humalog KwikPen 100 unit/mL Subcutaneous 3 times a day inject 15 UnITS by Subcutaneous route as per insulin sliding scale protocol 3 times per day BEFORE MEALS 8h Mar, Active Gabapentin 300 MG Orally 3 times a day 1cap 8h Dec, Active Glucocard Expression Test - In Vitro 3 times a day test strips 8h Sep, Active NovoFine 30G X 8 MM subcutaneously use with insulin use to inject insulin Nov, Active Metoclopramide HCl 10 mg Orally 3 times a day 0.5 tablet 8h Active Aleve 220 MG Orally every 12 hrs 1 tablet with food or milk as needed 12h Active Glucocard Expression Monitor w/Device as directed Sep, Active Celexa 40 mg Orally Once a day 0.5 tablet 24h 30 days Active Lisinopril 20 mg Orally Once a day 1 tablet 24h Active Ventolin HFA 108 (90 Base) MCG/ACT Inhalation every 6 hrs 2 puffs as needed 6h Sep, Active Lorazepam 1 MG Orally twice a day, prnanxiety 1 Sep, 28 days Active RESULTS Name Result Date Reference Range A1C (IN HOUSE) 2018-02-19 A1C IN HOUSE 11.4 4.3 - 5.6 % Previous A1c 13.9 Lot [id number] Exp date 11/2019 MICROALBUMIN, URINE (IN HOUSE) 2018-02-19 MICROALBUMIN Normal Lot # [id number] Exp date 09/2018 Clarity clear Color yellow ALB 30 CRE 100 A:C (IN HOUSE) <30 Control normal Control Lot # Exp UA LONG DIP (IN HOUSE) 2018-02-19 Lot # [id number] Exp date 07/2018 Clarity CLEAR Color YELLOW Odor NONE GLU 3 ISAÍAS NEGATIVE KET NEGATIVE SG 1.015 BLO TRACE-INTACT pH 5.0 Protein NEGATIVE URO 0.2 NIT NEGATIVE COLIN NEGATIVE Lot # Exp PROCEDURES Procedure Date Ordered Result Body Site GLYCATED HEMOGLOBIN TEST February 19, 2018 MICROALBUMIN, SEMIQUANT February 19, 2018 URINALYSIS, AUTO, W/O SCOPE February 19, 2018 INSTRUCTIONS MEDICATIONS ADMINISTERED No Known Medications MEDICAL (GENERAL) HISTORY Type Description Date Medical History diabetes type 1 Medical History hypertension Medical History asthma Medical History depression Medical History Diabetic Macular Edema Surgical History 1985, 1988, 1991, 1994 Hospitalization History multiple
--- OUTSIDE RECORDS SUMMARY | 2018-08-17 23:58 | XMS REPORT ---
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 Z79.4 Active 756959934 Problem Essential hypertension I10 Active 92759078 Problem Mild intermittent asthma without complication J45.20 Active 006450123 Problem Type 2 diabetes mellitus with diabetic polyneuropathy E11.42 Active 52645196 Problem Lumbar radiculopathy, chronic M54.16 Active 430668583 Problem Unspecified staphylococcus as the cause of diseases classified elsewhere B95.8 Active 03495324 Problem Depressive disorder, not elsewhere classified F32.9 Active 72051807 Problem Anxiety state, unspecified F41.1 Active 694188802 Problem Local infection of the skin and subcutaneous tissue, unspecified L08.9 Active 098478987 Problem Migraine without status migrainosus, not intractable, unspecified migraine type G43.909 Active 01441270 ALLERGIES No Information ENCOUNTERS Encounter Location Date Diagnosis [facility] [id number] [place] [address] 39912- 4554 Apr, Lumbar radiculopathy, chronic M54.16 ; Type 2 diabetes mellitus with diabetic polyneuropathy E11.42 ; Dysuria R30.0 and Essential hypertension I10 [facility] [address] [id number] [address] Apr, Type 2 diabetes mellitus with diabetic polyneuropathy E11.42 [facility] [address] [place] [address] 98229- 9258 Apr, [facility] [id number] [place] [address] 24326- 7898 Apr, [facility] [address] [place] [address] 67916- 1539 Mar, [place] [id number] [place] [address] 30941- 8558 Mar, Anxiety state, unspecified F41.1 [place] [id number] [place] [address] 25860- 3319 Mar, Local infection of the skin and subcutaneous tissue, unspecified L08.9 ; Unspecified staphylococcus as the cause of diseases classified elsewhere B95.8 ; Type 2 diabetes mellitus with diabetic 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 E11.42 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 [place] [id number] [place] [address] 04379- 0163 Mar, [place] [id number] [place] [address] 71677- 8196 February, Type 2 diabetes mellitus with diabetic polyneuropathy E11.42 ; senior care current use of insulin Z79.4 ; Essential hypertension I10 ; Anxiety state, unspecified F41.1 ; Depressive disorder, not elsewhere classified F32.9 and Dysuria R30.0 [place] [id number] [place] [address] 24829- 5335 Jan, Type 2 diabetes mellitus with diabetic polyneuropathy E11.42 [place] [id number] [place] [address] 46815- 8600 Jan, Type 2 diabetes mellitus with diabetic polyneuropathy E11.42 [place] [id number] [place] [address] 56593- 9419 Jan, [facility] [address] [place] [address] 14169 -0089 Dec, Migraine without status migrainosus, not intractable, unspecified migraine type G43.909 [place] [address] [place] [address] 45928- 8893 Dec, Type 2 diabetes mellitus with diabetic polyneuropathy E11.42 ; senior care current use of insulin Z79.4 ; Dog bite, subsequent encounter W54.0XXD and Essential hypertension I10 [facility] [id number] [place] [address] 99040 -1293 Dec, Dog bite, initial encounter W54.0XXA [facility] [id number] [place] [address] 81586- 5545 Dec, [facility] [id number] [place] [address] 39952- 6697 Nov, [facility] [id number] [place] [address] 57331- 6073 Oct, [facility] [address] 64146 -0390 Oct, Fissure in skin of foot R23.4 [facility] [id number] [place] [address] 74204- 4883 Oct, [facility] [id number] [place] [address] 72744- 1305 Oct, [facility] [id number] [place] [address] 11295- 7474 Oct, [facility] [id number] [place] [address] 83366- 4780 Oct, Type 2 diabetes mellitus with diabetic polyneuropathy E11.42 [facility] [id number] [place] [address] 82969- 2361 Oct, Anxiety state, unspecified F41.1 and Depressive disorder, not elsewhere classified F32.9 [facility] [id number] [place] [address] 14261- 1767 Oct, [place] [id number] [place] [address] 14884- 0354 Oct, [facility] [address] [place] [address] 02038- 7239 Sep, Essential hypertension I10 [facility] [id number] [place] [address] 03704- 4803 14 Sep, 2017 [facility] [id number] [place] [address] 45181- 3889 Sep, Type 2 diabetes mellitus with diabetic polyneuropathy E11.42 and Neuropathic ulcer of foot, unspecified laterality, unspecified ulcer stage L97.509 [place] [address] 71246- 0579 Sep, Neuropathic ulcer of foot, unspecified laterality, unspecified ulcer stage L97.509 and Acute vaginitis N76.0 [place] [address] 70299- 7251 12 Sep, 2017 Type 2 diabetes mellitus with diabetic polyneuropathy E11.42 ; 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 ; Essential hypertension I10 ; 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 ; Reactive depression F32.9 ; Acute vaginitis N76.0 and Mild intermittent asthma without complication J45.20 [place] [id number] [place] [address] 58855- 9421 17 Jul, 2017 [facility] [id number] [place] [address] 25264 -6927 Jun, [place] [id number] [place] [address] 07880- 2425 May, [facility] [id number] [place] [address] 83303 -5093 May, Cellulitis L03.90 [place] [id number] [place] [address] 57766- 2226 Mar, [place] [id number] [place] [address] 24452- 4375 14 Jan, 2015 [place] [address] 07099- 7010 13 Jan, 2015 [facility] [address] 15190- 1095 Sep, [facility] [place] [facility] [address] [id number] [place] [address]- 2915 Sep, [facility] [place] [facility] [address] [id number] [place] [address]- 6576 Apr, [facility] [place] [facility] [address] [id number] [place] [address]- 5233 Apr, [facility] [place] [facility] [address] [id number] [place] [address]- 1106 Apr, [facility] [place] [facility] [address] [id number] [place] [address]- 3111 Apr, [facility] [place] [facility] [address] [id number] [place] [address]- 9442 Apr, [facility] [place] [facility] [address] [id number] [place] [address]- 8882 Apr, [facility] [place] [facility] [address] [id number] [place] [address]- 2363 Apr, [facility] [place] [facility] [address] [id number] [place] [address]- 0537 Apr, [facility] [place] [facility] [address] [id number] [place] [address]- 0491 Mar, [facility] [place] [facility] [address] [id number] [place] [address]- 1871 Mar, [facility] [place] [facility] [address] [id number] [place] [address]- 5929 Mar, [facility] [place] [facility] [address] [id number] [place] [address]- 9299 Mar, [facility] [place] [facility] [address] [id number] [place] [address]- 2389 Mar, [facility] [place] [facility] [address] [id number] [place] [address]- 5205 Mar, [facility] [place] [facility] [address] [id number] [place] [address]- 4560 19 Mar, 2014 [facility] [place] [facility] [address] [id number] [place] [address]- 9536 19 Mar, 2014 [facility] [place] [facility] [address] [id number] [place] [address]- 0178 18 Mar, 2014 [facility] [place] [facility] [address] [id number] [place] [address]- 0199 18 Mar, 2014 [facility] [place] [facility] [address] [id number] [place] [address]- 4396 16 Mar, 2014 [facility] [place] [facility] [address] [id number] [place] [address]- 5383 15 Mar, 2014 [facility] [place] [facility] [address] [id number] [place] [address]- 5615 13 Mar, 2014 [facility] [place] [facility] [address] [id number] [place] [address]- 2413 Mar, [facility] [place] [facility] [address] [id number] [place] [address]- 7260 11 Mar, 2014 [facility] [place] [facility] [address] [id number] [place] [address]- 8535 Mar, [facility] [place] [facility] [address] [id number] [place] [address]- 5278 Mar, [facility] [place] [facility] [address] [id number] [place] [address]- 8464 Mar, [facility] [place] [facility] [address] [id number] [place] [address]- 6721 Mar, [facility] [place] [facility] [address] [id number] [place] [address]- 7803 February, [facility] [place] [facility] [address] [id number] [place] [address]- 2067 February, [facility] [place] [facility] [address] [id number] [place] [address]- 4545 Jan, [facility] [place] [facility] [address] [id number] [place] [address]- 5052 24 Jan, 2014 [facility] [place] [facility] [address] [id number] [place] [address]- 3728 18 Jan, 2014 [facility] [place] [facility] [address] [id number] [place] [address]- 6417 18 Jan, 2014 [facility] [place] [facility] [address] [id number] [place] [address]- 7804 Jan, [facility] [place] [facility] [address] [id number] [place] [address]- 3500 Jan, [facility] [place] [facility] [address] [id number] [place] [address]- 3297 14 Jan, 2014 [facility] [place] [facility] [address] [id number] [place] [address]- 9012 Jan, [facility] [place] [facility] [address] [id number] [place] [address]- 7079 10 Jan, 2014 [facility] [place] [facility] [address] [id number] [place] [address]- 1811 Jan, [facility] [place] [facility] [address] [id number] [place] [address]- 8494 Dec, [facility] [place] [facility] [address] [id number] [place] [address]- 4350 17 Dec, 2013 [facility] [place] [facility] [address] [id number] [place] [address]- 5264 11 Dec, 2013 [facility] [place] [facility] [address] [id number] [place] [address]- 0931 11 Dec, 2013 [facility] [place] [facility] [address] [id number] [place] [address]- 2855 Dec, [facility] [place] [facility] [address] [id number] [place] [address]- 0741 10 Dec, 2013 [facility] [place] [facility] [address] [id number] [address]- 3161 07 Dec, 2013 [facility] [place] [facility] [address] [id number] [place] [address]- 9817 Dec, [facility] [place] [facility] [address] [id number] [place] [address]- 9632 Dec, [facility] [place] [facility] [address] [id number] [place] [address]- 5319 Dec, [facility] [place] [facility] [address] [id number] [place] [address]- 1848 Oct, [facility] [place] [facility] [address] [id number] [place] [address]- 6902 Oct, [facility] [place] [facility] [address] [id number] [place] [address]- 2437 Jul, [facility] [place] [facility] [address] [facility] [id number] [place] [address]- 1744 Jul, [facility] [place] [facility] [address] [facility] [id number] [place] [address]- 8319 Jul, [facility] [place] [facility] [address] [facility] [id number] [place] [address]- 4250 Jun, [facility] [place] [facility] [address] [facility] [id number] [place] [address]- 6821 Jun, [facility] [place] [facility] [address] [id number], [place] [address]- 1034 Jun, [facility] [place] [facility] [address] [id number], [place] [address]- 9735 Jun, [facility] [place] [facility] [address] [id number] [place] [address]- 4887 Apr, [facility] [place] [facility] [address] [facility] [id number] [place] [address]- 0585 February, [facility] [place] [facility] [address] [facility] [id number] [place] [address]- 2901 Nov, [facility] [place] [facility] [address] [id number] [place] [address]- 6386 14 Nov, 2012 [facility] [place] [facility] [address] [id number] [place] [address]- 8016 14 Nov, 2012 [facility] [place] [facility] [address] [id number] [place] [address]- 7505 19 Sep, 2012 [facility] [place] [facility] [address] [id number] [place] [address]- 2526 Sep, [facility] [place] [facility] [address] [id number] [place] [address]- 8515 18 Sep, 2012 [facility] [place] [facility] [address] [id number] [place] [address]- 7150 18 Sep, 2012 [facility] [place] [facility] [address] [id number] [place] [address]- 9812 Sep, [facility] [place] [facility] [address] [id number] [place] [address]- 5948 Sep, [facility] [place] [facility] [address] [id number] [place] [address]- 3247 Sep, [facility] [place] [facility] [address] [id number] [place] [address]- 4730 Sep, [facility] [place] [facility] [address] [id number] [place] [address]- 2332 Sep, [facility] [place] [facility] [address] [id number] [place] [address]- 2620 Sep, [facility] [place] [facility] [address] [id number] [place] [address]- 9675 Aug, [facility] [place] [facility] [address] [id number] [place] [address]- 4156 Aug, [facility] [place] [facility] [address] [id number] [place] [address]- 6794 Aug, [facility] [place] [facility] [address] [id number] [place] [address]- 3428 Aug, [facility] [place] [facility] [address] [id number] [place] [address]- 8556 Aug, [facility] [place] [facility] [address] [id number] [place] [address]- 7036 Jul, [facility] [place] [facility] [address] [id number] [place] [address]- 5206 Apr, [facility] [place] [facility] [address] [id number] [place] [address]- 9419 February, [facility] [place] [facility] [address] [id number] [place] [address]- 5259 Jan, [facility] [place] [facility] [address] [id number] [place] [address]- 7070 Jan, [facility] [place] [facility] [address] [id number] [place] [address]- 5492 Dec, [facility] [place] [facility] [address] [id number] [place] [address]- 4804 Dec, [facility] [place] [facility] [address] [id number] [place] [address]- 6095 Oct, [facility] [place] [facility] [address] [id number] [place] [address]- 9949 Oct, [facility] [place] [facility] [address] [id number], [place] [address]- 3278 February, [facility] [place] [facility] [address] [id number], [place] [address]- 5240 Sep, [facility] [place] [facility] [address] [id number] [place] [address]- 0493 Jul, [facility] [place] [facility] [address] [id number] [place] [address]- 4787 Jul, [facility] [place] [facility] [address] [id number] [place] [address]- 0516 Jul, [facility] [place] [facility] [address] [facility] [id number] [place] [address]- 2546 17 Jun, 2010 [facility] [address] [facility] [id number] [address]- 7786 15 Sep, 2009 [facility] [address] [id number] [address] 2546 Sep, [facility] [address] [facility] [id number], [place] [address]- 2546 Sep, [facility] [address] [facility] [id number], [place] [address] 2544 15 Jun, 2009 [facility] [address] [facility] [id number], [place] [address]- 7984 Dec, IMMUNIZATIONS No Known Immunizations SOCIAL HISTORY Never Assessed REASON FOR VISIT Requests return call PLAN OF CARE VITAL SIGNS MEDICATIONS Medication Instructions Dosage Frequency Start Date End Date Duration Status Diflucan 100 mg Orally Three times a Week 1 tablet Jan, Jan, 10 day(s) Active RESULTS No Results PROCEDURES No Known procedures INSTRUCTIONS MEDICATIONS ADMINISTERED No Known Medications MEDICAL (GENERAL) HISTORY Type Description Date Medical History diabetes type 1 Medical History hypertension Medical History asthma Medical History depression Medical History Diabetic Macular Edema Surgical History 1985, 1988, 1991, 1994 Hospitalization History multiple
--- OUTSIDE RECORDS SUMMARY | 2018-08-17 23:58 | XMS REPORT ---
Author Author ALVA BENTLEY [facility] Address [facility] [place] [address] Care Team Providers Care [place] [facility] Attendant Name Role Phone ALVA BENTLEY Unavailable PROBLEMS Type Condition ICD9-CM Code TQX62-ND Code Onset Dates Condition Status SNOMED Code Problem nursing home current use of insulin Z79.4 Active 193449569 Problem Essential hypertension I10 Active 33656609 Problem Mild intermittent asthma without complication J45.20 Active 748848276 Problem Type 2 diabetes mellitus with diabetic polyneuropathy E11.42 Active 15771188 Problem Lumbar radiculopathy, chronic M54.16 Active 478384585 Problem Unspecified staphylococcus as the cause of diseases classified elsewhere B95.8 Active 50139873 Problem Depressive disorder, not elsewhere classified F32.9 Active 69949273 Problem Anxiety state, unspecified F41.1 Active 050087555 Problem Local infection of the skin and subcutaneous tissue, unspecified L08.9 Active 253343759 Problem Migraine without status migrainosus, not intractable, unspecified migraine type G43.909 Active 89432618 ALLERGIES No Information ENCOUNTERS Encounter Location Date Diagnosis [place] [id number] [place] [address] 21914- 2714 Apr, Lumbar radiculopathy M54.16 [facility] [id number] [place] [address] 97054- 5320 Apr, Lumbar radiculopathy, chronic M54.16 ; Type 2 diabetes mellitus with diabetic polyneuropathy E11.42 ; Dysuria R30.0 and Essential hypertension I10 [facility] [id number] [place] [address] 51898- 4402 Apr, Type 2 diabetes mellitus with diabetic polyneuropathy E11.42 [facility] [id number] [place] [address] 67954- 5689 Apr, [facility] [address] [address] 09[address] Apr, [facility] [id number] [place] [address] 63370- 9304 Mar, [place] [address] [address] [id number] [place] [address] 58680- 5060 Mar, Anxiety state, unspecified F41.1 [place] [address] [address] [id number] [place] [address] 51933- 4517 Mar, Local infection of the skin and subcutaneous tissue, unspecified L08.9 ; Unspecified staphylococcus as the cause of diseases classified elsewhere B95.8 ; Type 2 diabetes mellitus with diabetic polyneuropathy E11.42 and nursing home current use of insulin Z79.4 [place] [address] [id number] [place] [address] 57982- 0432 Mar, [place] [address] [address] [id number] [place] [address] 93526- 8670 February, Type 2 diabetes mellitus with diabetic polyneuropathy E11.42 ; nursing home current use of insulin Z79.4 ; Essential hypertension I10 ; Anxiety state, unspecified F41.1 ; Depressive disorder, not elsewhere classified F32.9 and Dysuria R30.0 [place] [address] [address] [id number] [place] [address] 94831- 3149 Jan, Type 2 diabetes mellitus with diabetic polyneuropathy E11.42 [facility] [id number] [place] [address] 17671- 3113 Jan, Type 2 diabetes mellitus with diabetic polyneuropathy E11.42 [place] [address] [address] [id number] [place] [address] 35731- 9643 Jan, [facility] [id number] [place] [address] 56413 -7970 Dec, Migraine without status migrainosus, not intractable, unspecified migraine type G43.909 [place] [address] [place] [address] 9209 Dec, Type 2 diabetes mellitus with diabetic polyneuropathy E11.42 ; nursing home current use of insulin Z79.4 ; Dog bite, subsequent encounter W54.0XXD and Essential hypertension I10 [facility] [id number] [place] [address] 50416 -2499 Dec, Dog bite, initial encounter W54.0XXA [facility] [address] 75773- 1179 Dec, [facility] [id number] [place] [address] 59740- 5026 Nov, [facility] [id number] [place] [address] 65984- 9986 Oct, [facility] [id number] [place] [address] 16151 -6888 Oct, Fissure in skin of foot R23.4 [facility] [id number] [place] [address] 04355- 5965 Oct, [facility] [id number] [place] [address] 85392- 6094 Oct, [facility] [id number] [place] [address] 72530- 1516 Oct, [facility] [id number] [place] [address] 98437- 8047 Oct, Type 2 diabetes mellitus with diabetic polyneuropathy E11.42 [facility] [id number] [place] [address] 29442- 1460 Oct, Anxiety state, unspecified F41.1 and Depressive disorder, not elsewhere classified F32.9 [facility] [id number] [place] [address] 76975- 6578 Oct, [facility] [id number] [place] [address] 82134- 2697 Oct, [facility] [address] [address]- 9742 Sep, Essential hypertension I10 [facility] [id number] [place] [address] 67515- 5466 Sep, [facility] [id number] [place] [address] 66656- 4118 Sep, Type 2 diabetes mellitus with diabetic polyneuropathy E11.42 and Neuropathic ulcer of foot, unspecified laterality, unspecified ulcer stage L97.509 [facility] [id number] [place] [address] 44620- 2362 Sep, Neuropathic ulcer of foot, unspecified laterality, unspecified ulcer stage L97.509 and Acute vaginitis N76.0 [facility] [id number] [place] [address] 17571- 8766 12 Sep, 2017 Type 2 diabetes mellitus with diabetic polyneuropathy E11.42 ; nursing home current use of insulin Z79.4 ; Essential hypertension I10 ; 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 ; Reactive depression F32.9 ; Acute vaginitis N76.0 and Mild intermittent asthma without complication J45.20 [facility] [id number] [place] [address] 14125- 2562 Jul, [facility] [address] [address] Jun, [facility] [id number] [place] [address] 03900- 5813 May, [facility] [id number] [place] [address] 25140 -0310 May, Cellulitis L03.90 [facility] [address] [id number] [place] [address] 61155- 5132 Mar, [facility] [address] [address]- 3739 Jan, [facility] [address] [place] [address] [address] [place] [address] 7760 Jan, [facility] [place] [facility] [address] [id number] [place] [address]- 4597 Sep, [facility] [place] [facility] [address] [id number] [place] [address]- 1520 Sep, [facility] [place] [facility] [address] [id number] [place] [address]- 6809 Apr, [facility] [place] [facility] [address] [id number] [place] [address]- 0668 Apr, [facility] [place] [facility] [address] [id number] [place] [address]- 7696 Apr, [facility] [place] [facility] [address] [id number] [place] [address]- 5010 Apr, [facility] [place] [facility] [address] [id number] [place] [address]- 4801 Apr, [facility] [place] [facility] [address] [id number] [place] [address]- 7597 Apr, [facility] [place] [facility] [address] [id number] [place] [address]- 3184 Apr, [facility] [place] [facility] [address] [id number] [place] [address]- 5460 Apr, [facility] [place] [facility] [address] [id number] [place] [address]- 2602 Mar, [facility] [place] [facility] [address] [id number] [place] [address]- 5371 Mar, [facility] [place] [facility] [address] [id number] [place] [address]- 7475 Mar, [facility] [place] [facility] [address] [id number] [place] [address]- 7784 Mar, [facility] [place] [facility] [address] [id number] [place] [address]- 7622 Mar, [facility] [place] [facility] [address] [id number] [place] [address]- 1027 Mar, [facility] [place] [facility] [address] [id number] [place] [address]- 9927 Mar, [facility] [place] [facility] [address] [id number] [place] [address]- 0037 Mar, [facility] [place] [facility] [address] [id number] [place] [address]- 5634 Mar, [facility] [place] [facility] [address] [id number] [place] [address]- 0082 18 Mar, 2014 [facility] [place] [facility] [address] [id number] [place] [address]- 0076 16 Mar, 2014 [facility] [place] [facility] [address] [id number] [place] [address]- 1072 15 Mar, 2014 [facility] [place] [facility] [address] [id number] [place] [address]- 7802 Mar, [facility] [place] [facility] [address] [id number] [place] [address]- 4679 Mar, [facility] [place] [facility] [address] [id number] [place] [address]- 8637 Mar, [facility] [place] [facility] [address] [id number] [place] [address]- 7822 Mar, [facility] [place] [facility] [address] [id number] [place] [address]- 9719 Mar, [facility] [place] [facility] [address] [id number] [place] [address]- 5719 Mar, [facility] [place] [facility] [address] [id number] [place] [address]- 1031 Mar, [facility] [place] [facility] [address] [id number] [place] [address]- 7339 February, [facility] [place] [facility] [address] [id number] [place] [address]- 7362 February, [facility] [place] [facility] [address] [id number] [place] [address]- 4026 24 Jan, 2014 [facility] [place] [facility] [address] [id number] [place] [address]- 7202 24 Jan, 2014 [facility] [place] [facility] [address] [id number] [place] [address]- 0922 Jan, [facility] [place] [facility] [address] [id number] [place] [address]- 2564 18 Jan, 2014 [facility] [place] [facility] [address] [id number] [place] [address]- 1290 Jan, [facility] [place] [facility] [address] [id number] [place] [address]- 7005 Jan, [facility] [place] [facility] [address] [id number] [place] [address]- 7641 14 Jan, 2014 [facility] [place] [facility] [address] [id number] [place] [address]- 2485 11 Jan, 2014 [facility] [place] [facility] [address] [id number] [place] [address]- 1203 10 Jan, 2014 [facility] [place] [facility] [address] [id number] [place] [address]- 0152 Jan, [facility] [place] [facility] [address] [id number] [place] [address]- 1114 Dec, [facility] [place] [facility] [address] [id number] [place] [address]- 4701 17 Dec, 2013 [facility] [place] [facility] [address] [id number] [place] [address]- 0599 Dec, [facility] [place] [facility] [address] [id number] [place] [address]- 0242 Dec, [facility] [place] [facility] [address] [id number] [place] [address]- 3949 10 Dec, 2013 [facility] [place] [facility] [address] [id number] [place] [address]- 2803 10 Dec, 2013 [facility] [address] [id number] [place] [address]- 8772 Dec, [facility] [place] [facility] [address] [id number] [place] [address]- 3176 Dec, [facility] [place] [facility] [address] [id number] [place] [address]- 6108 Dec, [facility] [place] [facility] [address] [id number] [place] [address]- 1226 Dec, [facility] [place] [facility] [address] [id number] [place] [address]- 6496 Oct, [facility] [place] [facility] [address] [id number] [place] [address]- 6051 Oct, [facility] [place] [facility] [address] [id number] [place] [address]- 0093 Jul, [facility] [address] [id number] [place] [address]- 2625 Jul, [facility] [place] [facility] [address] [id number] [place] [address]- 7762 Jul, [facility] [address] [id number] [place] [address]- 8876 Jun, [facility] [place] [facility] [address] [id number] [place] [address]- 7387 Jun, [facility] [place] [facility] [address] [id number] [place] [address]- 3796 Jun, [facility] [place] [facility] [address] [id number] [place] [address]- 7029 Jun, [facility] [place] [facility] [address] [id number] [place] [address]- 5866 Apr, [facility] [place] [facility] [address] [id number] [place] [address]- 1529 February, [facility] [address] [id number] [place] [address]- 9019 Nov, [facility] [place] [facility] [address] [id number] [place] [address]- 7236 Nov, [facility] [place] [facility] [address] [id number] [place] [address]- 0508 Nov, [facility] [place] [facility] [address] [id number] [place] [address]- 2311 Sep, [facility] [address] [id number] [place] [address]- 8425 Sep, [facility] [address] [id number] [place] [address]- 0393 Sep, [facility] [place] [facility] [address] [id number] [place] [address]- 5691 Sep, [facility] [place] [facility] [address] [id number] [place] [address]- 6113 Sep, [facility] [place] [facility] [address] [id number] [place] [address]- 4929 Sep, [facility] [place] [facility] [address] [id number] [place] [address]- 4794 Sep, [facility] [place] [facility] [address] [id number] [place] [address]- 0206 Sep, [facility] [place] [facility] [address] [id number] [place] [address]- 1503 Sep, [facility] [place] [facility] [address] [id number] [place] [address]- 3454 Sep, [facility] [place] [facility] [address] [id number] [place] [address]- 3152 Aug, [facility] [place] [facility] [address] [id number] [place] [address]- 3297 Aug, [facility] [place] [facility] [address] [id number] [place] [address]- 8832 Aug, [facility] [place] [facility] [address] [id number] [place] [address]- 1587 Aug, [facility] [place] [facility] [address] [id number] [place] 9390 Aug, [facility] [place] [facility] [address] [id number] [place] [address]- 7470 Jul, [facility] [place] [facility] [address] [id number] [place] [address]- 4535 Apr, [facility] [place] [facility] [address] [id number] [place] [address]- 9640 February, [facility] [place] [facility] [address] [id number] [place] [address]- 0698 Jan, [facility] [place] [facility] [address] [id number] [place] [address]- 9331 Jan, [facility] [place] [facility] [address] [id number] [place] [address]- 6972 Dec, [facility] [place] [facility] [address] [id number] [place] [address]- 4207 Dec, [facility] [place] [facility] [address] [facility] [id number] [place] [address]- 6636 Oct, [facility] [place] [facility] [address] [id number] [place] [address]- 8278 Oct, [facility] [place] [facility] [address] [id number] [place] [address]- 1476 February, [facility] [place] [facility] [address] [id number] [place] [address]- 9849 Sep, [facility] [place] [facility] [address] [id number] [place] [address]- 1604 Jul, [facility] [place] [facility] [address] [id number] [place] [address]273 Jul, [facility] [id number] [address] 2546 13 Jul, 2010 [facility] [id number] [address]- 3906 17 Jun, 2010 [facility] [address] [address]- 0756 Sep, [facility] [address] [address] 2546 Sep, [facility] [id number] [address]- 4666 Sep, [facility] [id number] [address]- 5796 15 Jun, 2009 [facility] [id number] [address]- 7853 Dec, IMMUNIZATIONS No Known Immunizations SOCIAL HISTORY Never Assessed REASON FOR VISIT PALS PLAN OF CARE VITAL SIGNS MEDICATIONS Medication Instructions Dosage Frequency Start Date End Date Duration Status Humalog KwikPen 100 unit/mL Subcutaneous 3 times a day inject 15 UnITS by Subcutaneous route as per insulin sliding scale protocol 3 times per day BEFORE MEALS 8h Mar, Active RESULTS No Results PROCEDURES No Known procedures INSTRUCTIONS MEDICATIONS ADMINISTERED No Known Medications MEDICAL (GENERAL) HISTORY Type Description Date Medical History diabetes type 1 Medical History hypertension Medical History asthma Medical History depression Medical History Diabetic Macular Edema Surgical History 1985, 1988, 1991, 1994 Hospitalization History multiple
--- OUTSIDE RECORDS SUMMARY | 2018-08-17 23:58 | XMS REPORT ---
Author Author ALVA BENTLEY [facility] Address [address] [place] [address] Care Team Providers Care Street Openings Inspector Name Role Phone ALVA BENTLEY Unavailable PROBLEMS Type Condition ICD9-CM Code MSJ76-GX Code Onset Dates Condition Status SNOMED Code Problem residential current use of insulin Z79.4 Active 383243192 Problem Essential hypertension I10 Active 99134647 Problem Mild intermittent asthma without complication J45.20 Active 686211154 Problem Type 2 diabetes mellitus with diabetic polyneuropathy E11.42 Active 07604967 Problem Lumbar radiculopathy, chronic M54.16 Active 682828908 Problem Unspecified staphylococcus as the cause of diseases classified elsewhere B95.8 Active 94317675 Problem Depressive disorder, not elsewhere classified F32.9 Active 03061030 Problem Anxiety state, unspecified F41.1 Active 522496042 Problem Local infection of the skin and subcutaneous tissue, unspecified L08.9 Active 410238514 Problem Migraine without status migrainosus, not intractable, unspecified migraine type G43.909 Active 81137278 ALLERGIES Substance Reaction Event Type Date Status Metformin HCl Unknown Drug Allergy Jan, Active Ketorolac Tromethamine nausea Drug Allergy Jan, Active Hydrocodone Bitartrate hives Drug Allergy Jan, Active Biaxin Unknown Drug Allergy Jan, Active ENCOUNTERS Encounter Location Date Diagnosis [facility] [address], [place] [address] Apr, Lumbar radiculopathy M54.16 [facility] [id number] [place] [address] Apr, Lumbar radiculopathy, chronic M54.16 ; Type 2 diabetes mellitus with diabetic polyneuropathy E11.42 ; Dysuria R30.0 and Essential hypertension I10 [facility] [id number] [place] [address]- [address] Apr, Type 2 diabetes mellitus with diabetic polyneuropathy E11.42 [place] [address], [place] [address] Apr, [facility] [address], [place] [address] Apr, [place] [address], [place] [address] Mar, [place] [address], [place] [address] Mar, Anxiety state, unspecified F41.1 [place] [address], [place] [address] Mar, Local infection of the skin and subcutaneous tissue, unspecified L08.9 ; Unspecified staphylococcus as the cause of diseases classified elsewhere B95.8 ; Type 2 diabetes mellitus with diabetic polyneuropathy E11.42 and residential current use of insulin Z79.4 [place] [address], [place] [address] Mar, [place] [address], [place] [address] February, Type 2 diabetes mellitus with diabetic polyneuropathy E11.42 ; residential current use of insulin Z79.4 ; Essential hypertension I10 ; Anxiety state, unspecified F41.1 ; Depressive disorder, not elsewhere classified F32.9 and Dysuria R30.0 [place] [address], [place] [address] Jan, Type 2 diabetes mellitus with diabetic polyneuropathy E11.42 [place] [address], [place] [address] Jan, Type 2 diabetes mellitus with diabetic polyneuropathy E11.42 [place] [address], [place] [address] Jan, [facility] [id number] [place] [address] Dec, Migraine without status migrainosus, not intractable, unspecified migraine type G43.909 [facility] [id number] [place] [address]- 0053 Dec, Type 2 diabetes mellitus with diabetic polyneuropathy E11.42 ; 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 ; Dog bite, subsequent encounter W54.0XXD and Essential hypertension I10 [facility] [address] [address] Dec, Dog bite, initial encounter W54.0XXA [facility] [address] [address] Dec, [facility] [address] [address]- [address]676 Nov, [facility] [address] [address] Oct, [facility] [id number] [place] [address] Oct, Fissure in skin of foot R23.4 [facility] [id number] [place] [address]- 5590 Oct, [facility] [id number] [place] [address] 9[address]- 0220 Oct, [facility] [id number] [place] [address] 88827- 4766 Oct, [facility] [id number] [place] [address] 59280- 7423 Oct, Type 2 diabetes mellitus with diabetic polyneuropathy E11.42 [facility] [id number] [place] [address]- 8617 Oct, Anxiety state, unspecified F41.1 and Depressive disorder, not elsewhere classified F32.9 [facility] [address] [address] Oct, [facility] [id number] [place] [address]69[address]- 6050 Oct, [facility] [id number] [place] [address] 33293- 4112 19 Sep, 2017 Essential hypertension I10 [place] [id number] [place] [address]- 9599 14 Sep, 2017 [place] [id number] [place] [address] 20165- 1011 Sep, Type 2 diabetes mellitus with diabetic polyneuropathy E11.42 and Neuropathic ulcer of foot, unspecified laterality, unspecified ulcer stage L97.509 [place] [id number] [place] [address] 59560- 4727 Sep, Neuropathic ulcer of foot, unspecified laterality, unspecified ulcer stage L97.509 and Acute vaginitis N76.0 [place] [id number] [place] [address] 13771- 6680 12 Sep, 2017 Type 2 diabetes mellitus with diabetic polyneuropathy E11.42 ; 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 ; Essential hypertension I10 ; 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 ; Reactive depression F32.9 ; Acute vaginitis N76.0 and Mild intermittent asthma without complication J45.20 [place] [address] [place] [address]- 2647 Jul, [facility] [address] [place] [address]1267 Jun, [place] [id number] [place] [address]67- 5227 May, [facility] [id number] [place] [address] May, Cellulitis L03.90 [place] [id number] [place] [address]- 4478 Mar, [facility] [place] [facility] [address] [id number] [place] [address] 2042 Jan, [facility] [place] [facility] [address] [id number] [place] [address]- 1209 Jan, [facility] [place] [facility] [address] [id number] [place] [address]- 0143 Sep, [facility] [place] [facility] [address] [id number] [place] [address]- 7231 Sep, [facility] [place] [facility] [address] [id number] [place] [address]- 7725 Apr, [facility] [place] [facility] [address] [id number] [place] [address]- 2169 Apr, [facility] [place] [facility] [address] [id number] [place] [address]- 4885 Apr, [facility] [place] [facility] [address] [id number] [place] [address]- 1947 Apr, [facility] [place] [facility] [address] [id number] [place] [address]- 5563 Apr, [facility] [place] [facility] [address] [id number] [place] [address]- 5602 Apr, [facility] [place] [facility] [address] [id number] [place] [address]- 6451 Apr, [facility] [place] [facility] [address] [id number] [place] [address]- 5657 Apr, [facility] [place] [facility] [address] [id number] [place] [address]- 6233 Mar, [facility] [place] [facility] [address] [id number] [place] [address]- 1932 Mar, [facility] [place] [facility] [address] [id number] [place] [address]- 7757 Mar, [facility] [place] [facility] [address] [id number] [place] [address]- 7697 23 Mar, 2014 [facility] [place] [facility] [address] [id number] [place] [address]- 3983 23 Mar, 2014 [facility] [place] [facility] [address] [id number] [place] [address]- 8998 20 Mar, 2014 [facility] [place] [facility] [address] [id number] [place] [address]- 6196 19 Mar, 2014 [facility] [place] [facility] [address] [id number] [place] [address]- 3232 19 Mar, 2014 [facility] [place] [facility] [address] [id number] [place] [address]- 0478 18 Mar, 2014 [facility] [place] [facility] [address] [id number] [place] [address]- 2759 18 Mar, 2014 [facility] [place] [facility] [address] [id number] [place] [address]- 4933 16 Mar, 2014 [facility] [place] [facility] [address] [id number] [place] [address]- 4119 15 Mar, 2014 [facility] [place] [facility] [address] [id number] [place] [address]- 4794 13 Mar, 2014 [facility] [place] [facility] [address] [id number] [place] [address]- 6804 13 Mar, 2014 [facility] [place] [facility] [address] [id number] [place] [address]- 2183 11 Mar, 2014 [facility] [place] [facility] [address] [id number] [place] [address]- 8027 10 Mar, 2014 [facility] [place] [facility] [address] [id number] [place] [address]- 9459 10 Mar, 2014 [facility] [place] [facility] [address] [id number] [place] [address]- 4973 10 Mar, 2014 [facility] [place] [facility] [address] [id number] [place] [address]- 2267 10 Mar, 2014 [facility] [place] [facility] [address] [id number] [place] [address]- 7776 February, [facility] [place] [facility] [address] [id number] [place] [address]- 7903 February, [facility] [place] [facility] [address] [id number] [place] [address]- 9435 Jan, [facility] [place] [facility] [address] [id number] [place] [address]- 1776 Jan, [facility] [place] [facility] [address] [id number] [place] [address]- 4916 Jan, [facility] [place] [facility] [address] [id number] [place] [address]- 6714 Jan, [facility] [place] [facility] [address] [id number] [place] [address]- 2557 Jan, [facility] [place] [facility] [address] [id number] [place] [address]- 0514 Jan, [facility] [place] [facility] [address] [id number] [place] [address]- 6590 14 Jan, 2014 [facility] [place] [facility] [address] [id number] [place] [address]- 9283 Jan, [facility] [place] [facility] [address] [id number] [place] [address]- 4536 Jan, [facility] [place] [facility] [address] [id number] [place] [address]- 7576 Jan, [facility] [place] [facility] [address] [id number] [place] [address]- 9491 Dec, [facility] [place] [facility] [address] [id number] [place] [address]- 6598 17 Dec, 2013 [facility] [place] [facility] [address] [id number] [place] [address]698 Dec, [facility] [place] [facility] [address] [id number], [place] [address]- 8968 11 Dec, 2013 [facility] [place] [facility] [address] [id number] [place] [address]- 2855 10 Dec, 2013 [facility] [place] [facility] [address] [id number] [place] [address]- 4000 10 Dec, 2013 [facility] [place] [facility] [address] [id number] [place] [address]- 4714 Dec, [facility] [place] [facility] [address] [id number] [place] [address]- 0526 07 Dec, 2013 [facility] [place] [facility] [address] [id number] [place] [address]- 0520 Dec, [facility] [place] [facility] [address] [id number] [place] [address]- 0907 Dec, [facility] [place] [facility] [address] [id number] [place] [address]- 2936 Oct, [facility] [place] [facility] [address] [id number] [place] [address]- 3209 Oct, [facility] [place] [facility] [address] [id number] [place] [address]- 8753 Jul, [facility] [place] [facility] [address] [id number] [place] [address]- 9793 Jul, [facility] [place] [facility] [address] [id number], [place] [address]- 3185 08 Jul, 2013 [facility] [place] [facility] [address] [id number] [place] [address]- 0721 27 Jun, 2013 [facility] [place] [facility] [address] [id number] [place] [address]- 0022 26 Jun, 2013 [facility] [place] [facility] [address] [id number] [place] [address]- 8685 25 Jun, 2013 [facility] [place] [facility] [address] [id number] [place] [address]- 8328 24 Jun, 2013 [facility] [place] [facility] [address] [id number] [place] [address]- 3976 17 Apr, 2013 [facility] [address] [id number] [place] [address]- 1679 February, [facility] [place] [facility] [address] [id number] [place] [address]- 5706 25 Nov, 2012 [facility] [address] [id number] [place] [address]- 4716 14 Nov, 2012 [facility] [place] [facility] [address] [id number] [place] [address]- 5736 14 Nov, 2012 [facility] [address] [id number] [place] [address]- 4996 Sep, [facility] [address] [id number] [place] [address] Sep, [facility] [address] [id number] [place] [address]- 7544 Sep, [facility] [address] [id number] [place] [address]- 9035 Sep, [facility] [address] [id number] [place] [address]- 6957 Sep, [facility] [address] [id number] [place] [address]- 8563 Sep, [facility] [address] [id number] [place] [address]- 5966 Sep, [facility] [place] [facility] [address] [id number] [place] [address]- 5356 Sep, [facility] [place] [facility] [address] [id number] [place] [address]- 0806 06 Sep, 2012 [facility] [place] [facility] [address] [id number] [place] [address]- 9856 Sep, [facility] [place] [facility] [address] [id number] [place] [address]- 8738 Aug, [facility] [place] [facility] [address] [id number] [place] [address]- 5182 Aug, [facility] [place] [facility] [address] [id number] [place] [address]- 7973 Aug, [facility] [place] [facility] [address] [id number] [place] [address]- 6414 Aug, [facility] [place] [facility] [address] [id number] [place] [address]- 9023 Aug, [facility] [place] [facility] [address] [id number] [place] [address]- 5799 Jul, [facility] [place] [facility] [address] [id number] [place] [address]- 5448 Apr, [facility] [place] [facility] [address] [id number] [place] [address]- 3865 February, [facility] [place] [facility] [address] [id number], [place] [address]- 0973 Jan, [facility] [place] [facility] [address] [id number] [place] [address]- 9130 Jan, [facility] [place] [facility] [address] [id number] [place] [address]- 1592 Dec, [facility] [place] [facility] [address] [id number], [place] [address]- 9898 Dec, [facility] [place] [facility] [address] [id number], [place] [address]- 6725 Oct, [facility] [place] [facility] [address] [id number] [place] [address]- 7385 Oct, [facility] [place] [facility] [address] [id number], [place] [address]- 5945 February, [facility] [place] [facility] [address] [id number] [place] [address]- 8435 Sep, [facility] [place] [facility] [id number] [address] 2546 Jul, [facility] [address], [place] [address]- 2016 Jul, [facility] [address], [place] [address]- 2546 13 Jul, 2010 [facility] [id number] [address]- 8446 17 Jun, 2010 [facility] [address], [place] [address]- 8706 15 Sep, 2009 [facility] [address], [place] [address]- 6866 Sep, [facility] [address], [place] [address]- 2546 Sep, [facility] [address] [place] [address]- 4606 15 Jun, 2009 [facility] [id number] [address]- 1716 Dec, IMMUNIZATIONS No Known Immunizations SOCIAL HISTORY Never Assessed REASON FOR VISIT samples PLAN OF CARE VITAL SIGNS MEDICATIONS Medication Instructions Dosage Frequency Start Date End Date Duration Status Levemir Flexpen 100 unit/mL (3 mL) subcutaneously Once a day 15 UnITS 24h Mar, Active RESULTS No Results PROCEDURES No Known procedures INSTRUCTIONS MEDICATIONS ADMINISTERED No Known Medications MEDICAL (GENERAL) HISTORY Type Description Date Medical History diabetes type 1 Medical History hypertension Medical History asthma Medical History depression Medical History Diabetic Macular Edema Surgical History 1985, 1988, 1991, 1994 Hospitalization History multiple
[2018-08-17] MEDS ORDERED: ACET-2267 PO (23:59)
[2018-08-17] MEDS ORDERED: INSU100V5 SQ (23:59)
[2018-08-17] MEDS ORDERED: METO-310 PO (23:59)
[2018-08-17] MEDS ORDERED: DOXY20TA5 PO (23:59)
[2018-08-17] MEDS ORDERED: CETI10CA PO (23:59)
[2018-08-17] MEDS ORDERED: GABA-486 PO (23:59)
[2018-08-17] MEDS ORDERED: PAMI30VI8 SQ (23:59)
[2018-08-17] MEDS ORDERED: LORA2TAB (23:59)
[2018-08-17] MEDS ORDERED: METO-333 (23:59)
[2018-08-17] MEDS ORDERED: LISI2.5T (23:59)
--- OUTSIDE RECORDS SUMMARY | 2018-08-17 23:59 | XMS REPORT ---
Author Author DANK ENGEL [facility] Address [address] [place] [address] Care Team Providers Care Critical Care Educator Name Role Phone DANK ENGEL Unavailable PROBLEMS Type Condition ICD9-CM Code MBM79-PQ Code Onset Dates Condition Status SNOMED Code Problem Type 2 diabetes mellitus with diabetic polyneuropathy E11.42 Active 28302017 Problem Mild intermittent asthma without complication J45.20 Active 330991781 Problem geochemist current use of insulin Z79.4 Active 602357304 Problem Unspecified staphylococcus as the cause of diseases classified elsewhere B95.8 Active 85606918 Problem Local infection of the skin and subcutaneous tissue, unspecified L08.9 Active 056823759 Problem Anxiety state, unspecified F41.1 Active 363902027 Problem Essential hypertension I10 Active 12153178 Problem Migraine without status migrainosus, not intractable, unspecified migraine type G43.909 Active 78767032 Problem Depressive disorder, not elsewhere classified F32.9 Active 78045754 ALLERGIES Substance Reaction Event Type Date Status Metformin HCl Unknown Drug Allergy Dec, Active Ketorolac Tromethamine nausea Drug Allergy Dec, Active Hydrocodone Bitartrate hives Drug Allergy Dec, Active Biaxin Unknown Drug Allergy Dec, Active ENCOUNTERS Encounter Location Date Diagnosis [facility] [id number] [address] Apr, Type 2 diabetes mellitus with diabetic polyneuropathy E11.42 [facility] [id number] [address] Apr, [facility] [id number] [address] Apr, [facility] [id number] [address] Mar, [place] [id number] [place] [address]07- 1879 Mar, Anxiety state, unspecified F41.1 [place] [id number] [place] [address] 30480- 9541 Mar, Local infection of the skin and subcutaneous tissue, unspecified L08.9 ; Unspecified staphylococcus as the cause of diseases classified elsewhere B95.8 ; Type 2 diabetes mellitus with diabetic polyneuropathy E11.42 and geochemist current use of insulin Z79.4 [place] [id number] [place] [address] 91638- 7350 Mar, [place] [id number] [place] [address] 25409- 6869 February, Type 2 diabetes mellitus with diabetic polyneuropathy E11.42 ; geochemist current use of insulin Z79.4 ; Essential hypertension I10 ; Anxiety state, unspecified F41.1 ; Depressive disorder, not elsewhere classified F32.9 and Dysuria R30.0 [place] [id number] [place] [address] 17841- 9615 Jan, Type 2 diabetes mellitus with diabetic polyneuropathy E11.42 [place] [id number] [place] [address] 74415- 0293 Jan, Type 2 diabetes mellitus with diabetic polyneuropathy E11.42 [place] [id number] [place] [address] 33206- 2740 Jan, [facility] [place] [id number] [place] [address] 14993 -8582 Dec, Migraine without status migrainosus, not intractable, unspecified migraine type G43.909 [place] [id number] [place] [address] 65151- 5315 Dec, Type 2 diabetes mellitus with diabetic polyneuropathy E11.42 ; halfway current use of insulin Z79.4 ; Dog bite, subsequent encounter W54.0XXD and Essential hypertension I10 [facility] [id number] [address] Dec, Dog bite, initial encounter W54.0XXA [facility] [address] [address]- [address] Dec, [facility] [id number] [place] [address] 45866- 9298 Nov, [facility] [id number] [place] [address] 07232- 9413 Oct, [facility] [id number] [place] [address] 07417 -7037 Oct, Fissure in skin of foot R23.4 [facility] [id number] [place] [address] 35263- 7973 Oct, [facility] [id number] [place] [address] 25410- 4451 Oct, [facility] [id number] [place] [address] 62277- 8659 Oct, [facility] [id number] [place] [address] 99150- 7816 Oct, Type 2 diabetes mellitus with diabetic polyneuropathy E11.42 [place] [id number] [place] [address] 48508- 1561 Oct, Anxiety state, unspecified F41.1 and Depressive disorder, not elsewhere classified F32.9 [facility] [id number] [place] [address] 84979- 1708 Oct, [facility] [id number] [place] [address] 53015- 4694 Oct, [facility] [id number] [place] [address] 88661- 9797 Sep, Essential hypertension I10 [place] [id number] [place] [address] 62969- 2410 14 Sep, 2017 [facility] [id number] [place] [address] 92840- 9246 13 Sep, 2017 Type 2 diabetes mellitus with diabetic polyneuropathy E11.42 and Neuropathic ulcer of foot, unspecified laterality, unspecified ulcer stage L97.509 [facility] [id number] [place] [address] 61179- 2192 13 Sep, 2017 Neuropathic ulcer of foot, unspecified laterality, unspecified ulcer stage L97.509 and Acute vaginitis N76.0 [place] [id number] [place] [address] 65623- 7524 12 Sep, 2017 Type 2 diabetes mellitus with diabetic polyneuropathy E11.42 ; geochemist current use of insulin Z79.4 ; Essential hypertension I10 ; 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 ; Reactive depression F32.9 ; Acute vaginitis N76.0 and Mild intermittent asthma without complication J45.20 [place] [address] [address]- 8107 17 Jul, 2017 [facility] [id number] [place] [address] 34635 -6378 Jun, [place] [id number] [place] [address] 01122- 3742 May, [facility] [id number] [place] [address] 23406 -2290 May, Cellulitis L03.90 [place] [id number] [place] [address] 19549- 2555 Mar, [place] [id number] [place] [address] 58177- 7482 Jan, [place] [address] 7[address]79- 8548 Jan, [place] [id number] [place] [address] 74305- 3105 Sep, [place] [address] [place] [address]- 8469 Sep, [facility] [place] [facility] [address] [id number] [place] [address]- 0028 Apr, [facility] [place] [facility] [address] [id number] [place] [address]- 4636 Apr, [facility] [place] [facility] [address] [id number] [place] [address]- 2252 Apr, [facility] [place] [facility] [address] [id number] [place] [address]- 5194 Apr, [facility] [place] [facility] [address] [id number] [place] [address]- 8004 Apr, [facility] [place] [facility] [address] [id number] [place] [address]- 0844 Apr, [facility] [place] [facility] [address] [id number] [place] [address]- 2785 Apr, [facility] [place] [facility] [address] [id number] [place] [address]- 4732 Apr, [facility] [place] [facility] [address] [id number] [place] [address]- 0717 Mar, [facility] [place] [facility] [address] [id number] [place] [address]- 0674 Mar, [facility] [place] [facility] [address] [id number] [place] [address]- 8680 Mar, [facility] [place] [facility] [address] [id number] [place] [address]- 3186 Mar, [facility] [place] [facility] [address] [id number] [place] [address]- 7992 Mar, [facility] [place] [facility] [address] [id number] [place] [address]- 0175 Mar, [facility] [place] [facility] [address] [id number] [place] [address]- 8941 Mar, [facility] [place] [facility] [address] [id number] [place] [address]- 4820 19 Mar, 2014 [facility] [place] [facility] [address] [id number] [place] [address]- 1886 Mar, [facility] [place] [facility] [address] [id number] [place] [address]- 9913 18 Mar, 2014 [facility] [place] [facility] [address] [id number] [place] [address]- 5978 16 Mar, 2014 [facility] [place] [facility] [address] [id number] [place] [address]- 1656 15 Mar, 2014 [facility] [place] [facility] [address] [id number] [place] [address]- 8272 Mar, [facility] [place] [facility] [address] [id number] [place] [address]- 1462 Mar, [facility] [place] [facility] [address] [id number] [place] [address]- 9924 Mar, [facility] [place] [facility] [address] [id number] [place] [address]- 2159 Mar, [facility] [place] [facility] [address] [id number] [place] [address]- 3470 Mar, [facility] [place] [facility] [address] [id number] [place] [address]- 7805 Mar, [facility] [place] [facility] [address] [id number] [place] [address]- 9272 Mar, [facility] [place] [facility] [address] [id number] [place] [address]- 3403 February, [facility] [place] [facility] [address] [id number] [place] [address]- 5298 February, [facility] [place] [facility] [address] [id number] [place] [address]- 1378 24 Jan, 2014 [facility] [place] [facility] [address] [id number] [place] [address]- 5675 24 Jan, 2014 [facility] [place] [facility] [address] [id number] [place] [address]- 9497 18 Jan, 2014 [facility] [place] [facility] [address] [id number] [place] [address]- 7607 18 Jan, 2014 [facility] [place] [facility] [address] [id number] [place] [address]- 0646 17 Jan, 2014 [facility] [place] [facility] [address] [id number] [place] [address]- 3888 17 Jan, 2014 [facility] [place] [facility] [address] [id number] [place] [address]- 5335 14 Jan, 2014 [facility] [place] [facility] [address] [id number] [place] [address]- 1339 11 Jan, 2014 [facility] [place] [facility] [address] [id number] [place] [address]- 4596 10 Jan, 2014 [facility] [place] [facility] [address] [id number] [place] [address]- 6460 10 Jan, 2014 [facility] [place] [facility] [address] [id number] [place] [address]- 0740 17 Dec, 2013 [facility] [place] [facility] [address] [id number] [place] [address]- 1869 17 Dec, 2013 [facility] [place] [facility] [address] [id number] [place] [address]- 8160 11 Dec, 2013 [facility] [place] [facility] [address] [id number] [place] [address]- 9566 11 Dec, 2013 [facility] [place] [facility] [address] [id number] [place] [address]- 4832 10 Dec, 2013 [facility] [place] [facility] [address] [id number] [place] [address]- 1685 10 Dec, 2013 [facility] [place] [facility] [address] [id number] [place] [address]- 6544 07 Dec, 2013 [facility] [place] [facility] [address] [id number] [place] [address]- 2467 Dec, [facility] [address] [id number] [place] [address]- 6657 Dec, [facility] [place] [facility] [address] [id number] [place] [address]- 9116 Dec, [facility] [address] [id number] [place] [address]- 9941 Oct, [facility] [address] [id number] [place] [address]- 6529 Oct, [facility] [address] [id number] [place] [address]- 6521 Jul, [facility] [address] [id number] [place] [address]- 0765 Jul, [facility] [address] [id number] [place] [address]- 6989 Jul, [facility] [address] [id number] [place] [address]- 4439 Jun, [facility] [place] [facility] [address] [id number] [place] [address]- 1903 Jun, [facility] [address] [id number] [place] [address]- 2958 Jun, [facility] [place] [facility] [address] [id number] [place] [address]- 9574 24 Jun, 2013 [facility] [place] [facility] [address] [id number] [place] [address]- 5242 Apr, [facility] [place] [facility] [address] [id number] [place] [address]- 6269 February, [facility] [place] [facility] [address] [id number] [place] [address]- 1863 Nov, [facility] [place] [facility] [address] [id number] [place] [address]- 9612 Nov, [facility] [place] [facility] [address] [id number] [place] [address]- 0886 14 Nov, 2012 [facility] [place] [facility] [address] [id number] [place] [address]- 6506 19 Sep, 2012 [facility] [place] [facility] [address] [id number] [place] [address]- 8996 19 Sep, 2012 [facility] [place] [facility] [address] [id number] [place] [address]- 2996 18 Sep, 2012 [facility] [place] [facility] [address] [id number] [place] [address]- 7206 18 Sep, 2012 [facility] [place] [facility] [address] [id number] [place] [address]- 3316 Sep, [facility] [place] [facility] [address] [id number] [place] [address]- 0206 Sep, [facility] [place] [facility] [address] [id number] [place] [address]- 4525 07 Sep, 2012 [facility] [place] [facility] [address] [id number] [place] [address]- 8006 Sep, [facility] [place] [facility] [address] [facility] [id number] [place] [address]- 4996 06 Sep, 2012 [facility] [place] [facility] [address] [id number] [place] [address]- 1516 Sep, [facility] [place] [facility] [address] [id number] [place] [address]- 1510 Aug, [facility] [place] [facility] [address] [id number] [place] [address]- 3716 Aug, [facility] [place] [facility] [address] [id number] [place] [address]- 3286 Aug, [facility] [place] [facility] [address] [id number] [place] [address]- 8116 Aug, [facility] [place] [facility] [address] [id number] [place] [address]- 2370 Aug, [facility] [address] [id number] [place] [address]- 9903 Jul, [facility] [place] [facility] [address] [id number] [place] [address]- 4195 Apr, [facility] [place] [facility] [address] [id number] [place] [address]- 7976 February, [facility] [place] [facility] [address] [id number] [place] [address]- 3854 Jan, [facility] [id number] [place] [address], [place] [address]- 6382 Jan, [facility] [place] [facility] [address] [id number] [place] [address]- 6733 Dec, [facility] [address] [id number] [place] [address]- 2813 Dec, [facility] [place] [facility] [address] [id number] [place] [address]- 5939 Oct, [facility] [address] [id number] [place] [address]- 2259 Oct, [facility] [address] [id number] [place] [address]- 2363 February, [facility] [address] [id number] [place] [address]- 4155 Sep, [facility] [place] [facility] [address] [id number], [place] [address]- 4770 Jul, [facility] [place] [facility] [address] [id number] [place] [address]- 4893 Jul, [facility] [place] [facility] [address] [id number] [place] [address]- 9660 Jul, [facility] [place] [facility] [address] [id number] [place] [address]- 3006 Jun, [facility] [place] [facility] [address] [facility] [id number], [place] [address]- 8151 Sep, [facility] [address] [facility] [id number], [place] [address]- 9839 Sep, [facility] [address] [facility] [id number], [place] [address]- 3669 Sep, [facility] [address] [facility] [id number], [place] [address]- 5258 Jun, [facility] [address] [facility] [id number], [place] [address]- 0116 Dec, IMMUNIZATIONS No Known Immunizations SOCIAL HISTORY Never Assessed REASON FOR VISIT toe pain Pt c/o R great toe bleeding after puppy chewed on it last night BELÉN Castillo, Incident reported to Deputy Rony Lopez with [facility] BELÉN Castillo PLAN OF CARE Activity Details Follow Up 2 - 3 Days Reason: VITAL SIGNS Height 64 in 2017-12-19 Weight 217.6 lbs 2017-12-19 Temperature 97.3 degrees Fahrenheit 2017-12-19 Heart Rate 104 bpm 2017-12-19 Respiratory Rate 20 2017-12-19 BMI 37.35 kg/m2 2017-12-19 Blood pressure systolic 168 mmHg 2017-12-19 Blood pressure diastolic 100 mmHg 2017-12-19 MEDICATIONS Medication Instructions Dosage Frequency Start Date End Date Duration Status Amoxicillin 500 mg SI cap(s) orally 2 times a day for 10 day(s) Oct, Not-Taking NovoLog Flexpen 100 UNIT/ML Active Glucocard Expression Monitor w/Device as directed Sep, Active Augmentin 875-125 mg 1 tablet by Oral route 2 times per day for 7 day(s) Dec, Not-Taking Metoclopramide HCl 10 MG Orally 3 times a day 0.5 tablet 8h Active Augmentin 875-125 MG Orally every 12 hrs 1 tablet 12h Dec,Dec 10 day(s) Active Diflucan 150 mg take 2 tablet by Oral route once 1 time per day for 3 days Apr, Not-Taking Lisinopril 20 mg Orally Once a day 1 tablet 24h Active Doxycycline Hyclate 100 mg take 1 tablet (100 mg) by oral route 2 times per day for 14 days Jul, Not-Taking Cipro 500 mg take 1 tablet (500 mg) by oral route every 12 hours for 10 days Jan, Not-Taking Pyridium 100 mg 1 tablet by Oral route 3 times per day for 3 day(s) Jan, Not-Taking Celexa 40 mg Orally Once a day 0.5 tablet 24h Active Diflucan 150 MG Orally Once a day 1 tablet 24h Sep, Not- Taking Flagyl 500 mg 1 tablet by Oral route 2 times per day for 7 days Apr Not-Taking Clindamycin HCl 150 mg 1 capsule by Oral route every 6 hours for 7 days Mar, Not-Taking Metronidazole 500 mg 1 tablet by Oral route 2 times per day for 7 days Jul, Not-Taking NovoFine 30G X 8 MM subcutaneously use with insulin use to inject insulin Nov, Active Lyrica 150 MG Orally Three times a day 1 capsule 8h Sep, Not -Taking Ativan 2 MG Orally Once a day 1 tablet at bedtime as needed 24h Not-Taking Levaquin 500 mg 1 tablet by Oral route every 24 hours for 7 days Jan Not-Taking Levemir Flexpen 100 unit/mL (3 mL) subcutaneously Once a day 15 UnITS 24h Mar, Active Glucocard Expression Test - In Vitro 3 times a day test strips 8h Sep, Active Lorazepam 1 MG Orally twice a day, prnanxiety 1 Sep, 28 days Active Bactroban 2 % 1 linda by Topical route 2 times per day for 14 day(s) voucher Jan, Not-Taking Ventolin HFA 108 (90 Base) MCG/ACT Inhalation every 6 hrs 2 puffs as needed 6h Sep, Active Humalog KwikPen 100 unit/mL Subcutaneous 3 times a day inject 15 UnITS by Subcutaneous route as per insulin sliding scale protocol 3 times per day BEFORE MEALS 8h Mar, Active Keflex 250 mg 2 capsule by Oral route 2 times per day for 10 days Aug, Not-Taking Metoprolol Succinate ER 25 MG Orally Once a day 1 tablet 24h Active RESULTS No Results PROCEDURES No Known procedures INSTRUCTIONS MEDICATIONS ADMINISTERED No Known Medications MEDICAL (GENERAL) HISTORY Type Description Date Medical History diabetes type 1 Medical History hypertension Medical History asthma Medical History depression Medical History Diabetic Macular Edema Surgical History 1985, 1988, 1991, 1994 Hospitalization History multiple
--- OUTSIDE RECORDS SUMMARY | 2018-08-17 23:59 | XMS REPORT ---
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 Active 517813031 Problem Unspecified staphylococcus as the cause of diseases classified elsewhere B95.8 Active 39248908 Problem Local infection of the skin and subcutaneous tissue, unspecified L08.9 Active 181205571 Problem Anxiety state, unspecified F41.1 Active 508535066 Problem Essential hypertension I10 Active 10181993 Problem Migraine without status migrainosus, not intractable, unspecified migraine type G43.909 Active 23285979 Problem Depressive disorder, not elsewhere classified F32.9 Active 55925432 ALLERGIES Substance Reaction Event Type Date Status Metformin HCl Unknown Drug Allergy Dec, Active Ketorolac Tromethamine nausea Drug Allergy Dec, Active Hydrocodone Bitartrate hives Drug Allergy Dec, Active Biaxin Unknown Drug Allergy Dec, Active ENCOUNTERS Encounter Location Date Diagnosis [facility], [place] [address] [id number], [place] [address] Apr, Type 2 diabetes mellitus with diabetic polyneuropathy E11.42 [facility], [place] [address] [id number], [place] [address] Apr, [facility], [place] [id number] [place] [address] Apr, [facility], [place] [address] [id number], [place] [address] Mar, [place] [id number] [place] [address] 7617 14 Mar, 2018 Anxiety state, unspecified F41.1 [place] [address] [address] Mar, Local infection of the skin and subcutaneous tissue, unspecified L08.9 ; Unspecified staphylococcus as the cause of diseases classified elsewhere B95.8 ; Type 2 diabetes mellitus with diabetic polyneuropathy E11.42 and care home current use of insulin Z79.4 [place] [id number] [place] [address] 1180 Mar, [place] [address] [address] February, Type 2 diabetes mellitus with diabetic polyneuropathy E11.42 ; care home current use of insulin Z79.4 ; Essential hypertension I10 ; Anxiety state, unspecified F41.1 ; Depressive disorder, not elsewhere classified F32.9 and Dysuria R30.0 [place] [id number] [place] [address]89- 2868 Jan, Type 2 diabetes mellitus with diabetic polyneuropathy E11.[address] [address] Jan, Type 2 diabetes mellitus with diabetic polyneuropathy E11.42 [place] [address] [address] Jan, [facility] [id number] [place] [address] Dec, Migraine without status migrainosus, not intractable, unspecified migraine type G43.[address] [address] Dec, Type 2 diabetes mellitus with diabetic polyneuropathy E11.42 ; 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.4 ; Dog bite, subsequent encounter W54.0XXD and Essential hypertension I10 [facility] [address] [place] [address] [address] Dec, Dog bite, initial encounter W54.0XXA [facility], [place] [address] [address] Dec, [facility], [place] [address] [address] Nov, [facility], [place] [address] [address] Oct, [facility] [address] [address] Oct, Fissure in skin of foot R23.4 [facility], [place] [address] [address] Oct, [facility], [place] [address] [address] Oct, [facility], [place] [address] [address] Oct, [facility], [place] [id number] [place] [address] 76297- 6128 Oct, Type 2 diabetes mellitus with diabetic polyneuropathy E11.42 [facility], [place] [id number] [place] [address] 46757- [address] Oct, Anxiety state, unspecified F41.1 and Depressive disorder, not elsewhere classified F32.9 [facility], [place] [id number] [place] [address] 72627- 9896 Oct, [facility], [place] [id number] [place] [address] 72446- 8972 Oct, [facility], [place] [id number] [place] [address] 46391- 0237 Sep, Essential hypertension I10 [facility], [place] [id number] [place] [address] 07672- 2213 14 Sep, 2017 [facility], [place] [id number] [place] [address] 71736- 4022 13 Sep, 2017 Type 2 diabetes mellitus with diabetic polyneuropathy E11.42 and Neuropathic ulcer of foot, unspecified laterality, unspecified ulcer stage L97.509 [facility], [place] [id number] [place] [address] 24646- 9734 13 Sep, 2017 Neuropathic ulcer of foot, unspecified laterality, unspecified ulcer stage L97.509 and Acute vaginitis N76.0 [place] [id number] [place] [address] 12878- 7666 12 Sep, 2017 Type 2 diabetes mellitus with diabetic polyneuropathy E11.42 ; care home current use of insulin Z79.4 ; Essential hypertension I10 ; 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 ; Reactive depression F32.9 ; Acute vaginitis N76.0 and Mild intermittent asthma without complication J45.20 [place] [address] [address]- 5510 17 Jul, 2017 [facility] [id number] [place] [address] Jun, [place] [address] [address] May, [facility] [id number] [place] [address] May, Cellulitis L03.90 [place] [id number] [place] [address] 17400- 6460 Mar, [place] [id number] [place] [address] 80350- 0025 Jan, [place] [address] [address]- 1779 Jan, [place] [id number] [place] [address] 60880- 1491 Sep, [place] [address] 49970- 3471 Sep, [facility] [place] [facility] [address] [id number] [place] [address]- 6689 Apr, [facility] [place] [facility] [address] [id number] [place] [address]- 3091 Apr, [facility] [place] [facility] [address] [id number] [place] [address]- 1805 Apr, [facility] [place] [facility] [address] [id number] [place] [address]- 7720 Apr, [facility] [place] [facility] [address] [id number] [place] [address]- 0707 Apr, [facility] [place] [facility] [address] [id number] [place] [address]- 7316 Apr, [facility] [place] [facility] [address] [id number] [place] [address]- 3983 Apr, [facility] [place] [facility] [address] [id number] [place] [address]- 9285 Apr, [facility] [place] [facility] [address] [id number] [place] [address]- 8530 Mar, [facility] [place] [facility] [address] [id number] [place] [address]- 2523 Mar, [facility] [place] [facility] [address] [id number] [place] [address]- 6326 Mar, [facility] [place] [facility] [address] [id number] [place] [address]- 1791 Mar, [facility] [place] [facility] [address] [id number] [place] [address]- 7742 Mar, [facility] [place] [facility] [address] [id number] [place] [address]- 9454 Mar, [facility] [place] [facility] [address] [id number] [place] [address]- 5097 Mar, [facility] [place] [facility] [address] [id number] [place] [address]- 6651 19 Mar, 2014 [facility] [place] [facility] [address] [id number] [place] [address]- 8806 18 Mar, 2014 [facility] [place] [facility] [address] [id number] [place] [address]- 7812 18 Mar, 2014 [facility] [place] [facility] [address] [id number] [place] [address]- 8778 16 Mar, 2014 [facility] [place] [facility] [address] [id number] [place] [address]- 3212 15 Mar, 2014 [facility] [place] [facility] [address] [id number] [place] [address]- 4115 13 Mar, 2014 [facility] [place] [facility] [address] [id number] [place] [address]- 4420 13 Mar, 2014 [facility] [place] [facility] [address] [id number] [place] [address]- 9086 Mar, [facility] [place] [facility] [address] [id number] [place] [address]- 1622 Mar, [facility] [place] [facility] [address] [id number] [place] [address]- 6236 Mar, [facility] [place] [facility] [address] [id number] [place] [address]- 9305 Mar, [facility] [place] [facility] [address] [id number] [place] [address]- 6138 Mar, [facility] [place] [facility] [address] [id number] [place] [address]- 9331 February, [facility] [place] [facility] [address] [id number] [place] [address]- 3544 February, [facility] [place] [facility] [address] [id number] [place] [address]- 0412 Jan, [facility] [place] [facility] [address] [id number] [place] [address]- 9238 Jan, [facility] [place] [facility] [address] [id number] [place] [address]- 5704 18 Jan, 2014 [facility] [place] [facility] [address] [id number] [place] [address]- 0062 18 Jan, 2014 [facility] [place] [facility] [address] [id number] [place] [address]- 4815 17 Jan, 2014 [facility] [place] [facility] [address] [id number] [place] [address]- 5273 17 Jan, 2014 [facility] [place] [facility] [address] [id number] [place] [address]- 7965 14 Jan, 2014 [facility] [place] [facility] [address] [id number] [place] [address]- 2218 11 Jan, 2014 [facility] [place] [facility] [address] [id number] [place] [address]- 2971 Jan, [facility] [place] [facility] [address] [id number] [place] [address]- 5318 Jan, [facility] [place] [facility] [address] [id number] [place] [address]- 7074 17 Dec, 2013 [facility] [place] [facility] [address] [id number] [place] [address]- 3722 17 Dec, 2013 [facility] [place] [facility] [address] [id number] [place] [address]- 9584 Dec, [facility] [place] [facility] [address] [id number] [place] [address]- 8715 11 Dec, 2013 [facility] [place] [facility] [address] [id number] [place] [address]- 0772 10 Dec, 2013 [facility] [place] [facility] [address] [id number] [place] [address]- 1649 10 Dec, 2013 [facility] [place] [facility] [address] [id number] [place] [address]- 4180 07 Dec, 2013 [facility] [place] [facility] [address] [id number], [place] [address]- 3231 Dec, [facility] [address] [id number] [place] [address]- 2860 Dec, [facility] [place] [facility] [address] [facility] [id number] [place] [address]- 4135 Dec, [facility] [place] [facility] [address] [facility] [id number] [place] [address]- 1460 Oct, [facility] [place] [facility] [address] [id number] [place] [address]- 3556 Oct, [facility] [place] [facility] [address] [facility] [id number] [place] [address]- 8761 Jul, [facility] [place] [facility] [address] [facility] [id number] [place] [address]- 2500 Jul, [facility] [address] [id number], [place] [address]- 5185 Jul, [facility] [place] [facility] [address] [facility] [id number] [place] [address]- 0787 Jun, [facility] [place] [facility] [id number] [address]- 7944 Jun, [facility] [place] [facility] [id number] [address]- 9955 Jun, [facility] [place] [facility] [address] [id number], [place] [address]- 5294 Jun, [facility] [place] [facility] [address] [facility] [id number], [place] [address]- 8536 Apr, [facility] [place] [facility] [address] [facility] [id number], [place] [address]- 0370 February, [facility] [place] [facility] [address] [facility] [id number], [place] [address]- 4487 Nov, [facility] [place] [facility] [address] [facility] [id number], [place] [address]- 5090 Nov, [facility] [place] [facility] [address] [id number] [place] [address]- 8835 14 Nov, 2012 [facility] [place] [facility] [address] [id number] [place] [address]- 8458 Sep, [facility] [place] [facility] [address] [id number] [place] [address]- 3042 Sep, [facility] [place] [facility] [address] [id number] [place] [address]- 1945 Sep, [facility] [place] [facility] [address] [id number] [place] [address]- 9827 Sep, [facility] [place] [facility] [address] [id number] [place] [address]- 9778 Sep, [facility] [address] [id number] [place] [address]- 6882 Sep, [facility] [address] [id number] [place] [address]- 4687 Sep, [facility] [place] [facility] [address] [id number] [place] [address]- 6057 Sep, [facility] [place] [facility] [address] [id number] [place] [address]- 2523 Sep, [facility] [place] [facility] [address] [id number] [place] [address]- 3901 Sep, [facility] [place] [facility] [address] [id number] [place] [address]- 1448 Aug, [facility] [place] [facility] [address] [id number] [place] [address]- 9197 Aug, [facility] [place] [facility] [address] [id number] [place] [address]- 4422 Aug, [facility] [place] [facility] [address] [id number] [place] [address]- 2371 Aug, [facility] [place] [facility] [address] [id number], [place] [address]- 9286 Aug, [facility] [place] [facility] [address] [id number] [place] [address]- 0389 Jul, [facility] [place] [facility] [address] [id number] [place] [address]- 0406 Apr, [facility] [place] [facility] [address] [id number] [place] [address] 2546 February, [facility] [place] [facility] [address] [id number] [place] [address]- 3151 Jan, [facility] [place] [facility] [address] [id number] [place] [address]- 0225 Jan, [facility] [place] [facility] [address] [id number] [place] [address]- 2872 Dec, [facility] [place] [facility] [address] [id number] [place] [address]- 6846 Dec, [facility] [place] [facility] [address] [id number] [place] [address]- 8790 Oct, [facility] [address] [id number], [place] [address]- 8961 Oct, [facility] [place] [facility] [address] [id number] [place] [address]- 9376 February, [facility] [place] [facility] [address] [id number], [place] [address]- 4148 Sep, [facility] [place] [facility] [address] [id number], [place] [address]- 8370 Jul, [facility] [place] [facility] [address] [id number] [place] [address]- 3499 Jul, [facility] [place] [facility] [address] [id number] [place] [address]- 3435 Jul, [facility] [place] [facility] [address] [id number] [place] [address]- 6156 Jun, [facility] [place] [facility] [address] [facility] [id number] [place] [address]- 8952 Sep, [facility] [place] [address] [facility] [id number], [place] [address]- 8331 Sep, [facility] [place] [address] [facility] [id number], [place] [address]- 6594 Sep, [place] [address] [facility] [id number], [place] [address]- 1509 Jun, [facility] [place] [address] [facility] [id number], [place] [address]- 3010 Dec, IMMUNIZATIONS No Known Immunizations SOCIAL HISTORY Never Assessed REASON FOR VISIT Migraine started about 4 days ago JStrasserRN PLAN OF CARE Activity Details Follow Up prn Reason: VITAL SIGNS Height 64 in 2017-12-25 Weight 221.6 lbs 2017-12-25 Temperature 97.7 degrees Fahrenheit 2017-12-25 Heart Rate 100 bpm 2017-12-25 Respiratory Rate 22 2017-12-25 BMI 38.03 kg/m2 2017-12-25 Blood pressure systolic 142 mmHg 2017-12-25 Blood pressure diastolic 86 mmHg 2017-12-25 MEDICATIONS Medication Instructions Dosage Frequency Start Date End Date Duration Status Lisinopril 20 mg Orally Once a day 1 tablet 24h Active Humalog KwikPen 100 unit/mL Subcutaneous 3 times a day inject 15 UnITS by Subcutaneous route as per insulin sliding scale protocol 3 times per day BEFORE MEALS 8h Mar, Active NovoFine 30G X 8 MM subcutaneously use with insulin use to inject insulin Nov, Active Metoprolol Succinate ER 25 MG Orally Once a day 1 tablet 24h Active Levemir Flexpen 100 unit/mL (3 mL) subcutaneously Once a day 15 UnITS 24h Mar, Active Glucocard Expression Monitor w/Device as directed Sep, Active Metoclopramide HCl 10 MG Orally 3 times a day 0.5 tablet 8h Active Gabapentin 300 MG Orally 3 times a day 1cap 8h Dec, Active Augmentin 875-125 MG Orally every 12 hrs 1 tablet 12h Dec,Dec 10 day(s) Active NovoLog Flexpen 100 UNIT/ML Active Celexa 40 mg Orally Once a day 0.5 tablet 24h Active Glucocard Expression Test - In Vitro 3 times a day test strips 8h Sep, Active Ventolin HFA 108 (90 Base) MCG/ACT Inhalation every 6 hrs 2 puffs as needed 6h 14 Sep, 2017 Active Lorazepam 1 MG Orally twice a day, prnanxiety 1 Sep, 28 days Active RESULTS No Results PROCEDURES No Known procedures INSTRUCTIONS MEDICATIONS ADMINISTERED No Known Medications MEDICAL (GENERAL) HISTORY Type Description Date Medical History diabetes type 1 Medical History hypertension Medical History asthma Medical History depression Medical History Diabetic Macular Edema Surgical History 1985, 1988, 1991, 1994 Hospitalization History multiple
[2018-08-18] VITALS (7 sets, daily range): BP systolic 112–164; BP diastolic 57–80
--- OUTSIDE RECORDS SUMMARY | 2018-08-18 | XMS REPORT ---
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 Active 048231110 Problem Unspecified staphylococcus as the cause of diseases classified elsewhere B95.8 Active 46925658 Problem Local infection of the skin and subcutaneous tissue, unspecified L08.9 Active 497393984 Problem Anxiety state, unspecified F41.1 Active 458150842 Problem Essential hypertension I10 Active 85595767 Problem Migraine without status migrainosus, not intractable, unspecified migraine type G43.909 Active 21630639 Problem Depressive disorder, not elsewhere classified F32.9 Active 03517707 ALLERGIES No Information ENCOUNTERS Encounter Location Date Diagnosis [place] [id number] [place] [address] 31193- 0361 Apr, Type 2 diabetes mellitus with diabetic polyneuropathy E11.42 [place] [address] [place] [id number] [place] [address] 74209- 0035 Apr, [place] [address] [place] [id number] [place] [address] 95168- 8436 Apr, [place] [address] [place] [id number] [place] [address] 94700- 2769 Mar, [place] [address] [place] [id number] [place] [address] 24403- 2731 Mar, Anxiety state, unspecified F41.1 [place] [address] [place] [id number] [place] [address] 18259- 0377 Mar, Local infection of the skin and subcutaneous tissue, unspecified L08.9 ; Unspecified staphylococcus as the cause of diseases classified elsewhere B95.8 ; Type 2 diabetes mellitus with diabetic polyneuropathy E11.42 and shelter current use of insulin Z79.4 [place] [address] [place] [id number] [place] [address] 24083- 7301 Mar, [place] [address] 9[address]58- 0409 February, Type 2 diabetes mellitus with diabetic polyneuropathy E11.42 ; 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 ; Essential hypertension I10 ; Anxiety state, unspecified F41.1 ; Depressive disorder, not elsewhere classified F32.9 and Dysuria R30.0 [place] [address] [place] [id number] [place] [address] 62104- 2242 Jan, Type 2 diabetes mellitus with diabetic polyneuropathy E11.42 [place] [address] [place] [id number] [place] [address] 77202- 4643 Jan, Type 2 diabetes mellitus with diabetic polyneuropathy E11.42 [place] [address] [place] [id number] [place] [address] 08868- 6708 Jan, [facility] [address] [place] [id number] [place] [address] 02745 -0219 Dec, Migraine without status migrainosus, not intractable, unspecified migraine type G43.909 [place] [address] [place] [id number] [place] [address] 38229- 4326 Dec, Type 2 diabetes mellitus with diabetic polyneuropathy E11.42 ; 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 ; Dog bite, subsequent encounter W54.0XXD and Essential hypertension I10 [facility] [address] [place] [id number] [place] [address] 84910 -9714 Dec, Dog bite, initial encounter W54.0XXA [place] [address] 55466- 7908 Dec, [facility] [address] [address] 6419 Nov, [facility] [address] [address] 8306 Oct, [facility] [address] [address] Oct, Fissure in skin of foot R23.4 [facility] [address] [address] 5026 Oct, [facility] [address] [place] [address] 30808- 9464 Oct, [facility] [address] [address]- 3350 Oct, [facility] [address] [place] [id number] [place] [address] 21737- 6798 Oct, Type 2 diabetes mellitus with diabetic polyneuropathy E11.42 [facility] [address] [address]- 4487 Oct, Anxiety state, unspecified F41.1 and Depressive disorder, not elsewhere classified F32.9 [facility] [address] [address]- 3736 Oct, [facility] [address] [address]- 0516 Oct, [facility] [address] [address] 3156 Sep, Essential hypertension I10 [facility] [address] [address]- 5391 14 Sep, 2017 [facility] [address] [address]- 7126 13 Sep, 2017 Type 2 diabetes mellitus with diabetic polyneuropathy E11.42 and Neuropathic ulcer of foot, unspecified laterality, unspecified ulcer stage L97.509 [facility] [address] [address]- 1406 13 Sep, 2017 Neuropathic ulcer of foot, unspecified laterality, unspecified ulcer stage L97.509 and Acute vaginitis N76.0 [facility] [address] [place] [address] [id number] [address]- 7692 12 Sep, 2017 Type 2 diabetes mellitus with diabetic polyneuropathy E11.42 ; 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 ; Essential hypertension I10 ; 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 ; Reactive depression F32.9 ; Acute vaginitis N76.0 and Mild intermittent asthma without complication J45.20 [facility] [address] [place] [id number] [place] [address] 87441- 6247 17 Jul, 2017 [facility] [address] [place] [id number] [place] [address] 27712 -0842 14 Jun, 2017 [facility] [address] [place] [id number] [place] [address] 40229- 3843 May, [facility] [address] [place] [id number] [place] [address] 23347 -2275 May, Cellulitis L03.90 [facility] [address] [place] [id number] [place] [address] 89043- 1203 Mar, [facility] [address] [place] [id number] [place] [address] 85937- 2932 14 Jan, 2015 [facility] [address] [place] [id number] [place] [address] 33235- 4096 Jan, [facility] [address] [place] [id number] [place] [address] 24621- 4859 Sep, [facility] [address] [place] [id number] [place] [address] 44971- 3512 Sep, [facility] [address] [place] [id number] [place] [address] 57669- 7105 Apr, [facility] [address] [place] [address] [place] [address]- 3332 Apr, [facility] [place] [facility] [address] [id number] [place] [address]- 8774 Apr, 2013 [facility] [place] [facility] [address] [id number] [place] [address]- 5613 Apr, 2013 [facility] [place] [facility] [address] [id number] [place] [address]- 4640 Apr, 2013 [facility] [place] [facility] [address] [id number] [place] [address]- 3001 Apr, 2013 [facility] [place] [facility] [address] [id number] [place] [address]- 8997 Apr, [facility] [place] [facility] [address] [id number] [place] [address]- 6871 Apr, [facility] [place] [facility] [address] [id number] [place] [address]- 7392 Mar, [facility] [place] [facility] [address] [id number] [place] [address]- 8150 Mar, [facility] [place] [facility] [address] [id number] [place] [address]- 5981 Mar, [facility] [place] [facility] [address] [id number] [place] [address]- 9230 Mar, [facility] [place] [facility] [address] [id number] [place] [address]- 3178 Mar, [facility] [place] [facility] [address] [id number] [place] [address]- 2807 Mar, [facility] [place] [facility] [address] [id number] [place] [address]- 3699 Mar, [facility] [place] [facility] [address] [id number] [place] [address]- 4981 Mar, [facility] [place] [facility] [address] [id number] [place] [address]- 4257 Mar, [facility] [place] [facility] [address] [id number] [place] [address]- 6579 18 Mar, 2014 [facility] [place] [facility] [address] [id number] [place] [address]- 2014 16 Mar, 2014 [facility] [place] [facility] [address] [id number] [place] [address]- 4087 15 Mar, 2014 [facility] [place] [facility] [address] [id number] [place] [address]- 0721 Mar, [facility] [place] [facility] [address] [id number] [place] [address]- 0733 Mar, [facility] [place] [facility] [address] [id number] [place] [address]- 1791 Mar, [facility] [place] [facility] [address] [id number] [place] [address]- 1241 Mar, [facility] [place] [facility] [address] [id number] [place] [address]- 2481 Mar, [facility] [place] [facility] [address] [id number] [place] [address]- 0194 Mar, [facility] [place] [facility] [address] [id number] [place] [address]- 2763 Mar, [facility] [place] [facility] [address] [id number] [place] [address]- 6031 February, [facility] [place] [facility] [address] [id number] [place] [address]- 6608 February, [facility] [place] [facility] [address] [id number] [place] [address]- 5969 Jan, [facility] [place] [facility] [address] [id number] [place] [address]- 6036 Jan, [facility] [place] [facility] [address] [id number] [place] [address]- 6244 Jan, [facility] [place] [facility] [address] [id number] [place] [address]- 9220 18 Jan, 2014 [facility] [place] [facility] [address] [id number] [place] [address]- 7342 17 Jan, 2014 [facility] [place] [facility] [address] [id number] [place] [address]- 6675 17 Jan, 2014 [facility] [place] [facility] [address] [id number] [place] [address]- 5459 14 Jan, 2014 [facility] [place] [facility] [address] [id number] [place] [address]- 1074 11 Jan, 2014 [facility] [place] [facility] [address] [id number] [place] [address]- 4780 10 Jan, 2014 [facility] [place] [facility] [address] [id number] [place] [address]- 6234 10 Jan, 2014 [facility] [place] [facility] [address] [id number] [place] [address]- 1632 Dec, [facility] [place] [facility] [address] [id number] [place] [address]- 8414 17 Dec, 2013 [facility] [place] [facility] [address] [id number] [place] [address]- 8396 Dec, [facility] [place] [facility] [address] [id number] [place] [address]- 1632 Dec, [facility] [place] [facility] [address] [id number] [place] [address]- 0876 Dec, [facility] [place] [facility] [address] [id number] [place] [address]- 1252 10 Dec, 2013 [facility] [place] [facility] [address] [id number] [place] [address]- 2284 07 Dec, 2013 [facility] [place] [facility] [address] [id number] [place] [address]- 6384 07 Dec, 2013 [facility] [place] [facility] [address] [id number] [place] [address] 03 Dec, 2013 [facility] [place] [facility] [address] [id number] [place] [address]- 3127 Dec, [facility] [address] [id number] [place] [address]- 8995 Oct, [facility] [place] [facility] [address] [id number] [place] [address]- 8090 Oct, [facility] [address] [id number] [place] [address]- 7362 Jul, [facility] [address] [id number] [place] [address]- 4036 Jul, [facility] [address] [id number] [place] [address]- 4578 Jul, [facility] [address] [id number] [place] [address]- 0770 Jun, [facility] [address] [id number] [place] [address]- 0292 Jun, [facility] [address] [id number] [place] [address]- 4136 Jun, [facility] [address] [id number] [place] [address]- 2820 Jun, [facility] [address] [id number] [place] [address]- 8170 Apr, [facility] [place] [facility] [address] [id number] [place] [address]- 2079 February, [facility] [address] [id number] [place] [address]- 1217 Nov, [facility] [place] [facility] [address] [id number] [place] [address]- 7330 Nov, [facility] [place] [facility] [address] [id number] [place] [address]- 1876 Nov, [facility] [place] [facility] [address] [id number] [place] [address]- 1370 Sep, [facility] [place] [facility] [address] [id number] [place] [address]- 4628 Sep, [facility] [place] [facility] [address] [id number] [place] [address]- 9283 Sep, [facility] [place] [facility] [address] [facility] [id number] [place] [address]- 3526 Sep, [facility] [place] [facility] [address] [id number] [place] [address]- 5576 Sep, [facility] [place] [facility] [address] [id number] [place] [address]- 2572 Sep, [facility] [place] [facility] [address] [id number] [place]88 Sep, [facility] [place] [facility] [address] [facility] [id number] [place] [address]- 8087 Sep, [facility] [place] [facility] [address] [id number] [place] [address]- 8558 Sep, [facility] [place] [facility] [address] [id number] [place] [address]- 8054 Sep, [facility] [place] [facility] [address] [facility] [id number] [place] [address]- 5683 Aug, [facility] [place] [facility] [address] [id number] [address]- 4331 Aug, [facility] [place] [facility] [address] [id number] [address]- 5221 Aug, [facility] [place] [facility] [address] [id number] [place] [address]- 3725 Aug, [facility] [place] [facility] [address] [id number] [address]- 1956 Aug, [facility] [place] [facility] [address] [facility] [id number] [place] [address]- 0381 Jul, [facility] [place] [facility] [address] [id number] [place] [address]- 6164 Apr, [facility] [address] [id number] [place] [address]- 7873 February, [facility] [place] [facility] [address] [id number] [place] [address]- 2910 Jan, [facility] [address] [id number] [place] [address]- 3285 Jan, [facility] [place] [facility] [address] [id number] [place] [address]- 8431 Dec, [facility] [address] [id number] [place] [address]- 7637 Dec, [facility] [place] [facility] [address] [id number] [place] [address]- 8408 Oct, [facility] [address] [id number] [place] [address]- 3609 Oct, [facility] [place] [facility] [address] [id number] [place] [address]- 7814 February, [facility] [place] [facility] [address] [id number] [place] [address]- 4357 Sep, [facility] [place] [facility] [address] [facility] [id number] [place] [address]- 1211 Jul, [facility] [place] [facility] [address] [id number] [place] [address]- 2270 13 Jul, 2010 [facility] [place] [facility] [address] [id number] [place] [address]- 2195 13 Jul, 2010 [facility] [place] [facility] [address] [id number] [place] [address]- 7093 17 Jun, 2010 [facility] [place] [facility] [address] [id number] [place] [address]- 2625 15 Sep, 2009 [facility] [place] [facility] [address] [id number] [place] [address]- 3794 11 Sep, 2009 [facility] [address] [facility] [id number] [place] [address]268 Sep, [facility] [address] [facility] [id number] [address]- 7302 Jun, [facility] [address] [facility] [id number] [place] [address]- 2922 Dec, IMMUNIZATIONS No Known Immunizations SOCIAL HISTORY Never Assessed REASON FOR VISIT wound PLAN OF CARE VITAL SIGNS MEDICATIONS Unknown Medications RESULTS No Results PROCEDURES No Known procedures INSTRUCTIONS MEDICATIONS ADMINISTERED No Known Medications MEDICAL (GENERAL) HISTORY Type Description Date Medical History diabetes type 1 Medical History hypertension Medical History asthma Medical History depression Medical History Diabetic Macular Edema Surgical History 1985, 1988, 1991, 1994 Hospitalization History multiple
--- OUTSIDE RECORDS SUMMARY | 2018-08-18 | XMS REPORT ---
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 890361107 Problem Unspecified staphylococcus as the cause of diseases classified elsewhere B95.8 Active 85013517 Problem Local infection of the skin and subcutaneous tissue, unspecified L08.9 Active 628725491 Problem Anxiety state, unspecified F41.1 Active 027823126 Problem Essential hypertension I10 Active 39935579 Problem Migraine without status migrainosus, not intractable, unspecified migraine type G43.909 Active 50549155 Problem Depressive disorder, not elsewhere classified F32.9 Active 15977209 ALLERGIES Substance Reaction Event Type Date Status Metformin HCl Unknown Drug Allergy Dec, Active Ketorolac Tromethamine nausea Drug Allergy Dec, Active Hydrocodone Bitartrate hives Drug Allergy Dec, Active Biaxin Unknown Drug Allergy Dec, Active ENCOUNTERS Encounter Location Date Diagnosis [place] [id number] [address] Apr, Type 2 diabetes mellitus with diabetic polyneuropathy E11.42 [facility] [id number] [address] Apr, [facility] [id number] [place] [address] Apr, [facility] [id number] [address] Mar, [facility] [id number] [place] [address]83- 0087 14 Mar, 2018 Anxiety state, unspecified F41.1 [place] [address] [address] Mar, Local infection of the skin and subcutaneous tissue, unspecified L08.9 ; Unspecified staphylococcus as the cause of diseases classified elsewhere B95.8 ; Type 2 diabetes mellitus with diabetic polyneuropathy E11.42 and 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 [place] [address] [address] Mar, [place] [address] [address] February, Type 2 diabetes mellitus with diabetic polyneuropathy E11.42 ; assisted current use of insulin Z79.4 ; Essential hypertension I10 ; Anxiety state, unspecified F41.1 ; Depressive disorder, not elsewhere classified F32.9 and Dysuria R30.0 [place] [address] [address] Jan, Type 2 diabetes mellitus with diabetic polyneuropathy E11.42 [place] [address] [address] Jan, Type 2 diabetes mellitus with diabetic polyneuropathy E11.42 [place] [address] [address] Jan, [facility] [place] [address] [address] Dec, Migraine without status migrainosus, not intractable, unspecified migraine type G43.[address] [address] Dec, Type 2 diabetes mellitus with diabetic polyneuropathy E11.42 ; assisted current use of insulin Z79.4 ; Dog bite, subsequent encounter W54.0XXD and Essential hypertension I10 [facility] [address] [place] [address] [place] [address] Dec, Dog bite, initial encounter W54.0XXA [facility] [address] [address] Dec, [facility] [id number] [place] [address]- 9965 Nov, [facility] [address] [address] Oct, [facility] [id number] [place] [address] Oct, Fissure in skin of foot R23.4 [facility] [address] [address]- [address] Oct, [facility] [id number] [place] [address]- 6236 Oct, [facility] [id number] [place] [address] 58702- 2675 Oct, [facility] [id number] [place] [address]- 9993 Oct, Type 2 diabetes mellitus with diabetic polyneuropathy E11.42 [facility] [id number] [place] [address] 68[address]- 4990 Oct, Anxiety state, unspecified F41.1 and Depressive disorder, not elsewhere classified F32.9 [facility] [id number] [place] [address]13- 9971 Oct, [facility] [id number] [place] [address]20- 1821 Oct, [facility] [id number] [place] [address] 98098- 6911 Sep, Essential hypertension I10 [facility] [id number] [place] [address] 78769- 7498 14 Sep, 2017 [facility] [id number] [place] [address] 24172- 1304 13 Sep, 2017 Type 2 diabetes mellitus with diabetic polyneuropathy E11.42 and Neuropathic ulcer of foot, unspecified laterality, unspecified ulcer stage L97.509 [facility] [id number] [place] [address] 12256- 6411 13 Sep, 2017 Neuropathic ulcer of foot, unspecified laterality, unspecified ulcer stage L97.509 and Acute vaginitis N76.0 [place] [address] [address]- [address] 12 Sep, 2017 Type 2 diabetes mellitus with diabetic polyneuropathy E11.42 ; 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 ; Essential hypertension I10 ; 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 ; Reactive depression F32.9 ; Acute vaginitis N76.0 and Mild intermittent asthma without complication J45.20 [place] [address] [address]- 0771 17 Jul, 2017 [facility] [id number] [place] [address] Jun, [place] [address] [address] May, [facility] [id number] [place] [address] May, Cellulitis L03.90 [place] [id number] [place] [address]- 5020 Mar, [place] [id number] [place] [address] 13394- 5679 Jan, [place] [address] [address]- [address] Jan, [place] [id number] [place] [address]99- 3135 Sep, [place] [address] [address]- [address] Sep, [facility] [place] [facility] [address] [id number] [place] [address]- 6267 Apr, [facility] [place] [facility] [address] [id number] [place] [address]- 0513 Apr, [facility] [place] [facility] [address] [id number] [place] [address]- 3548 Apr, [facility] [place] [facility] [address] [id number] [place] [address]- 4680 Apr, [facility] [place] [facility] [address] [id number] [place] [address]- 4850 Apr, [facility] [place] [facility] [address] [id number] [place] [address]- 8708 Apr, [facility] [place] [facility] [address] [id number] [place] [address]- 7644 Apr, [facility] [place] [facility] [address] [id number] [place] [address]- 8168 Apr, [facility] [place] [facility] [address] [id number] [place] [address]- 3209 Mar, [facility] [place] [facility] [address] [id number] [place] [address]- 2866 Mar, [facility] [place] [facility] [address] [id number] [place] [address]- 0355 Mar, [facility] [place] [facility] [address] [id number] [place] [address]- 7997 Mar, [facility] [place] [facility] [address] [id number] [place] [address]- 2460 Mar, [facility] [place] [facility] [address] [id number] [place] [address]- 7204 Mar, [facility] [place] [facility] [address] [id number] [place] [address]- 5067 Mar, [facility] [place] [facility] [address] [id number] [place] [address]- 2627 19 Mar, 2014 [facility] [place] [facility] [address] [id number] [place] [address]- 5986 18 Mar, 2014 [facility] [place] [facility] [address] [id number] [place] [address]- 7332 18 Mar, 2014 [facility] [place] [facility] [address] [id number] [place] [address]- 3586 16 Mar, 2014 [facility] [place] [facility] [address] [id number] [place] [address]- 9440 15 Mar, 2014 [facility] [place] [facility] [address] [id number] [place] [address]- 5462 13 Mar, 2014 [facility] [place] [facility] [address] [id number] [place] [address]- 9328 13 Mar, 2014 [facility] [place] [facility] [address] [id number] [place] [address]- 9576 Mar, [facility] [place] [facility] [address] [id number] [place] [address]- 6862 Mar, [facility] [place] [facility] [address] [id number] [place] [address]- 3285 Mar, [facility] [place] [facility] [address] [id number] [place] [address]- 8464 Mar, [facility] [place] [facility] [address] [id number] [place] [address]- 2431 Mar, [facility] [place] [facility] [address] [id number] [place] [address]- 9870 February, [facility] [place] [facility] [address] [id number] [place] [address]- 7346 February, [facility] [place] [facility] [address] [id number] [place] [address]- 5673 Jan, [facility] [place] [facility] [address] [id number] [place] [address]- 3733 Jan, [facility] [place] [facility] [address] [id number] [place] [address]- 7992 18 Jan, 2014 [facility] [place] [facility] [address] [id number] [place] [address]- 9227 18 Jan, 2014 [facility] [place] [facility] [address] [id number] [place] [address]- 2228 17 Jan, 2014 [facility] [place] [facility] [address] [id number] [place] [address]- 2586 17 Jan, 2014 [facility] [place] [facility] [address] [id number] [place] [address]- 2110 14 Jan, 2014 [facility] [place] [facility] [address] [id number] [place] [address]- 9506 11 Jan, 2014 [facility] [place] [facility] [address] [id number] [place] [address]- 6618 10 Jan, 2014 [facility] [place] [facility] [address] [id number] [place] [address]- 4064 Jan, [facility] [place] [facility] [address] [id number] [place] [address]- 2677 17 Dec, 2013 [facility] [place] [facility] [address] [id number] [place] [address]- 8038 17 Dec, 2013 [facility] [place] [facility] [address] [id number] [place] [address]- 6836 11 Dec, 2013 [facility] [place] [facility] [address] [id number] [place] [address]- 1760 11 Dec, 2013 [facility] [place] [facility] [address] [id number] [place] [address]- 9489 10 Dec, 2013 [facility] [place] [facility] [address] [id number] [place] [address]- 6290 10 Dec, 2013 [facility] [place] [facility] [address] [id number] [place] [address]84 07 Dec, 2013 [facility] [place] [facility] [address] [id number], [place] [address]- 0628 Dec, [facility] [place] [facility] [address] [id number] [place] [address]- 0071 Dec, [facility] [place] [facility] [address] [id number] [place] [address]48 Dec, [facility] [place] [facility] [address] [facility] [id number] [place] [address]- 0655 Oct, [facility] [place] [facility] [address] [id number] [place] [address]- 8264 Oct, [facility] [place] [facility] [address] [id number] [place] [address]- 1344 Jul, [facility] [place] [facility] [address] [id number] [place] [address]- 0695 Jul, [facility] [place] [facility] [address] [facility] [id number][place] [address]- 1100 Jul, [facility] [place] [facility] [address] [id number] [place] [address]- 3922 Jun, [facility] [place] [facility] [address] [id number] [place] [address]- 3539 Jun, [facility] [place] [facility] [address] [facility] [id number] [place] [address]- 9231 Jun, [facility] [place] [facility] [address] [id number], [place] [address]- 9145 Jun, [facility] [place] [facility] [address] [facility] [id number], [place] [address]- 2051 Apr, [facility] [place] [facility] [address] [id number] [place] [address]- 2019 February, [facility] [place] [facility] [address] [facility] [id number], [place] [address]- 8137 Nov, [facility] [place] [facility] [address] [facility] [id number] [place] [address]- 6496 Nov, [facility] [place] [facility] [address] [id number] [place] [address]- 3715 14 Nov, 2012 [facility] [place] [facility] [address] [id number] [place] [address]- 0366 Sep, [facility] [place] [facility] [address] [id number] [place] [address]- 7786 Sep, [facility] [place] [facility] [address] [id number] [place] [address]- 6436 Sep, [facility] [place] [facility] [address] [id number] [place] [address]- 4191 18 Sep, 2012 [facility] [place] [facility] [address] [id number] [place] [address]- 6166 Sep, [facility] [place] [facility] [address] [id number] [place] [address]29 Sep, [facility] [place] [facility] [address] [id number] [place] [address]- 3051 Sep, [facility] [place] [facility] [address] [id number] [place] [address]- 1751 Sep, [facility] [place] [facility] [address] [id number] [place] [address]- 3950 Sep, [facility] [place] [facility] [address] [id number] [place] [address]- 9896 Sep, [facility] [place] [facility] [address] [id number] [place] [address]- 0942 Aug, [facility] [place] [facility] [address] [id number] [place] [address]- 2036 Aug, [facility] [place] [facility] [address] [id number] [place] [address]- 9556 Aug, [facility] [place] [facility] [address] [id number] [place] [address]- 9026 Aug, [facility] [place] [facility] [address] [id number] [place] [address]- 0805 Aug, [facility] [place] [facility] [address] [id number] [place] [address] 2549 Jul, [facility] [place] [facility] [address] [id number] [place] [address]- 6036 Apr, [facility] [place] [facility] [address] [id number] [place] [address] 2546 February, [facility] [place] [facility] [address] [id number] [place] [address]- 2819 Jan, [facility] [place] [facility] [address] [id number] [place] [address]- 4205 Jan, [facility] [place] [facility] [address] [id number] [place] [address]- 3566 Dec, [facility] [place] [facility] [address] [id number] [place] [address] 2546 Dec, [facility] [place] [facility] [address] [id number], [place] [address]- 9254 Oct, [facility] [place] [facility] [address] [id number] [place] [address]- 3060 Oct, [facility] [place] [facility] [address] [id number], [place] [address]- 9816 February, [facility] [place] [facility] [address] [id number], [place] [address] 2546 Sep, [facility] [place] [facility] [address] [id number], [place] [address] 2542 Jul, [facility] [place] [facility] [address] [id number] [place] [address] 2546 Jul, [facility] [place] [facility] [address] [id number], [place] [address]- 9496 Jul, [facility] [place] [facility] [address] [id number] [place] [address]- 2546 Jun, [facility] [place] [facility] [address] [facility] [id number] [place] [address]- 6232 Sep, [facility] [address] [facility] [id number], [place] [address]- 1824 Sep, [facility] [address] [facility] [id number], [place] [address]- 2932 Sep, [facility] [address] [facility] [id number], [place] [address]- 1194 Jun, [facility] [address] [facility] [id number], [place] [address]- 7056 Dec, IMMUNIZATIONS No Known Immunizations SOCIAL HISTORY Never Assessed REASON FOR VISIT Walk In Care f/u, PT dog chewed on her right toe and had a callus on the same foot but removed it with a knife-[place] MA PLAN OF CARE Activity Details Follow Up 3 Months Reason: VITAL SIGNS Height 64 in 2017-12-22 Weight 216.6 lbs 2017-12-22 Temperature 97.8 degrees Fahrenheit 2017-12-22 Heart Rate 88 bpm 2017-12-22 Respiratory Rate 20 2017-12-22 BMI 37.18 kg/m2 2017-12-22 Blood pressure systolic 148 mmHg 2017-12-22 Blood pressure diastolic 88 mmHg 2017-12-22 MEDICATIONS Medication Instructions Dosage Frequency Start Date End Date Duration Status Metoprolol Succinate ER 25 MG Orally Once a day 1 tablet 24h Active Glucocard Expression Test - In Vitro 3 times a day test strips 8h Sep, Active Glucocard Expression Monitor w/Device as directed Sep, Active Ventolin HFA 108 (90 Base) MCG/ACT Inhalation every 6 hrs 2 puffs as needed 6h Sep, Active Gabapentin 300 MG Orally 3 times a day 1cap 8h Dec, Active Metoclopramide HCl 10 MG Orally 3 times a day 0.5 tablet 8h Active Levemir Flexpen 100 unit/mL (3 mL) subcutaneously Once a day 15 UnITS 24h Mar, Active Augmentin 875-125 MG Orally every 12 hrs 1 tablet 12h Dec,Dec 10 day(s) Active NovoFine 30G X 8 MM subcutaneously use with insulin use to inject insulin Nov, Active Lisinopril 20 mg Orally Once a day 1 tablet 24h Active NovoLog Flexpen 100 UNIT/ML Active Lorazepam 1 MG Orally twice a day, prnanxiety 1 Sep, 28 days Active Celexa 40 mg Orally Once a day 0.5 tablet 24h Active Humalog KwikPen 100 unit/mL Subcutaneous 3 times a day inject 15 UnITS by Subcutaneous route as per insulin sliding scale protocol 3 times per day BEFORE MEALS 8h 19 Mar, 2014 Active RESULTS Name Result Date Reference Range A1C (IN HOUSE) 2017-12-22 A1C IN HOUSE 13.9 4.3 - 5.6 % Previous A1c 13.7 Lot [id number] Exp date 08/2019 PROCEDURES Procedure Date Ordered Result Body Site GLYCATED HEMOGLOBIN TEST December 22, 2017 INSTRUCTIONS MEDICATIONS ADMINISTERED No Known Medications MEDICAL (GENERAL) HISTORY Type Description Date Medical History diabetes type 1 Medical History hypertension Medical History asthma Medical History depression Medical History Diabetic Macular Edema Surgical History 1985, 1988, 1991, 1994 Hospitalization History multiple
--- OUTSIDE RECORDS SUMMARY | 2018-08-18 | XMS REPORT ---
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 Active 928628107 Problem Mild intermittent asthma without complication J45.20 Active 623270937 Problem Migraine without status migrainosus, not intractable, unspecified migraine type G43.909 Active 12427604 Problem Depressive disorder, not elsewhere classified F32.9 Active 01318195 Problem Type 2 diabetes mellitus with diabetic polyneuropathy E11.42 Active 68286383 Problem 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 Active 247055619 Problem Anxiety state, unspecified F41.1 Active 611390630 Problem Essential hypertension I10 Active 65095943 ALLERGIES No Information ENCOUNTERS Encounter Location Date Diagnosis [place] [id number] [place] [address] 18660- 2023 February, [place] [id number] [place] [address] 46788- 6246 February, Type 2 diabetes mellitus with diabetic polyneuropathy E11.42 ; 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.4 ; Essential hypertension I10 ; Anxiety state, unspecified F41.1 ; Depressive disorder, not elsewhere classified F32.9 and Dysuria R30.0 [place] [id number] [place] [address] 83221- 7472 Jan, Type 2 diabetes mellitus with diabetic polyneuropathy E11.42 [place] [id number] [place] [address] 03531- 6933 Jan, Type 2 diabetes mellitus with diabetic polyneuropathy E11.42 [place] [id number] [place] [address] 65867- 7791 Jan, [facility] [id number] [place] [address] 71942 -3370 Dec, Migraine without status migrainosus, not intractable, unspecified migraine type G43.909 [facility] [id number] [place] [address] 58347- 7010 Dec, Type 2 diabetes mellitus with diabetic polyneuropathy E11.42 ; 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.4 ; Dog bite, subsequent encounter W54.0XXD and Essential hypertension I10 [facility] [id number] [place] [address] 00001 -7779 Dec, Dog bite, initial encounter W54.0XXA [facility] [id number] [place] [address] 03984- 1889 Dec, [facility] [id number] [place] [address] 36607- 2841 Nov, [facility] [id number] [place] [address] 27065- 8859 Oct, [facility] [id number] [place] [address] 56510 -3963 Oct, Fissure in skin of foot R23.4 [facility] [id number] [place] [address] 23981- 1508 Oct, [facility] [id number] [place] [address] 20924- 6952 Oct, [facility] [id number] [place] [address] 90557- 0484 Oct, [facility] [id number] [place] [address] 45414- 2035 Oct, Type 2 diabetes mellitus with diabetic polyneuropathy E11.42 [facility] [id number] [place] [address] 85191- 7747 Oct, Anxiety state, unspecified F41.1 and Depressive disorder, not elsewhere classified F32.9 [facility] [id number] [place] [address] 71916- 9759 Oct, [facility] [id number] [place] [address] 72036- 6357 Oct, [facility] [id number] [place] [address] 17769- 4611 Sep, Essential hypertension I10 [place] [address] 32568- 9886 Sep, [place] [address] 31198- 7929 Sep, Type 2 diabetes mellitus with diabetic polyneuropathy E11.42 and Neuropathic ulcer of foot, unspecified laterality, unspecified ulcer stage L97.509 [place] [address] 24397- 4715 Sep, Neuropathic ulcer of foot, unspecified laterality, unspecified ulcer stage L97.509 and Acute vaginitis N76.0 [place] [id number] [place] [address] 80704- 3813 12 Sep, 2017 Type 2 diabetes mellitus with diabetic polyneuropathy E11.42 ; 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.4 ; Essential hypertension I10 ; 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 ; Reactive depression F32.9 ; Acute vaginitis N76.0 and Mild intermittent asthma without complication J45.20 [facility] [id number] [place] [address] 38148- 4496 17 Jul, 2017 [facility] [id number] [place] [address] 21835 -4986 Jun, [facility] [id number] [place] [address] 68781- 8281 May, [facility] [id number] [place] [address] 03393 -8567 May, Cellulitis L03.90 [facility] [address] [id number] [place] [address]- 5752 Mar, [facility] [place] [facility] [address] [id number] [place] [address]- 5496 Jan, [facility] [place] [facility] [address] [id number] [place] [address]- 8345 Jan, [facility] [place] [facility] [address] [id number] [place] [address]- 0857 Sep, [facility] [place] [facility] [address] [id number] [place] [address]- 5578 Sep, [facility] [place] [facility] [address] [id number] [place] [address]- 6937 Apr, [facility] [place] [facility] [address] [id number] [place] [address]- 2883 Apr, [facility] [place] [facility] [address] [id number] [place] [address]- 9096 Apr, [facility] [place] [facility] [address] [id number] [place] [address]- 6760 Apr, [facility] [place] [facility] [address] [id number] [place] [address]- 2253 Apr, [facility] [place] [facility] [address] [id number] [place] [address]- 3569 Apr, [facility] [place] [facility] [address] [id number] [place] [address]- 9018 Apr, [facility] [place] [facility] [address] [id number] [place] [address]- 3454 Apr, [facility] [place] [facility] [address] [id number] [place] [address]- 8477 Mar, [facility] [place] [facility] [address] [id number] [place] [address]- 0270 Mar, [facility] [place] [facility] [address] [id number] [place] [address]- 1371 23 Mar, 2014 [facility] [place] [facility] [address] [id number] [place] [address]- 8143 23 Mar, 2014 [facility] [place] [facility] [address] [id number] [place] [address]- 8004 23 Mar, 2014 [facility] [place] [facility] [address] [id number] [place] [address]- 6060 20 Mar, 2014 [facility] [place] [facility] [address] [id number] [place] [address]- 2420 19 Mar, 2014 [facility] [place] [facility] [address] [id number] [place] [address]- 8302 19 Mar, 2014 [facility] [place] [facility] [address] [id number] [place] [address]- 1285 18 Mar, 2014 [facility] [place] [facility] [address] [id number] [place] [address]- 7112 18 Mar, 2014 [facility] [place] [facility] [address] [id number] [place] [address]- 8832 16 Mar, 2014 [facility] [place] [facility] [address] [id number] [place] [address]- 1421 15 Mar, 2014 [facility] [place] [facility] [address] [id number] [place] [address]- 2918 13 Mar, 2014 [facility] [place] [facility] [address] [id number] [place] [address]- 1041 13 Mar, 2014 [facility] [place] [facility] [address] [id number] [place] [address]- 1513 11 Mar, 2014 [facility] [place] [facility] [address] [id number] [place] [address]- 0231 10 Mar, 2014 [facility] [place] [facility] [address] [id number] [place] [address]- 4994 10 Mar, 2014 [facility] [place] [facility] [address] [id number] [place] [address]- 5465 Mar, [facility] [place] [facility] [address] [id number] [place] [address]- 0560 Mar, [facility] [place] [facility] [address] [id number] [place] [address]- 6462 February, [facility] [place] [facility] [address] [id number] [place] [address]- 8422 February, [facility] [place] [facility] [address] [id number] [place] [address]- 2039 Jan, [facility] [place] [facility] [address] [id number] [place] [address]- 5367 24 Jan, 2014 [facility] [place] [facility] [address] [id number] [place] [address]- 8691 Jan, [facility] [place] [facility] [address] [id number] [place] [address]- 8984 Jan, [facility] [place] [facility] [address] [id number] [place] [address]- 7875 Jan, [facility] [place] [facility] [address] [id number] [place] [address]- 3917 Jan, [facility] [place] [facility] [address] [id number] [place] [address]- 6484 14 Jan, 2014 [facility] [place] [facility] [address] [id number] [place] [address]- 0250 11 Jan, 2014 [facility] [place] [facility] [address] [id number] [place] [address]- 6168 Jan, [facility] [place] [facility] [address] [id number] [place] [address]- 3568 Jan, [facility] [place] [facility] [address] [id number] [place] [address]- 1968 17 Dec, 2013 [facility] [place] [facility] [address] [id number] [place] [address]- 4600 Dec, [facility] [place] [facility] [address] [id number] [place] [address]- 1341 11 Dec, 2013 [facility] [place] [facility] [address] [id number] [place] [address]- 8948 11 Dec, 2013 [facility] [place] [facility] [address] [id number] [place] [address]- 1439 10 Dec, 2013 [facility] [place] [facility] [address] [id number] [place] [address]- 5424 10 Dec, 2013 [facility] [place] [facility] [address] [id number] [place] [address]- 3089 07 Dec, 2013 [facility] [place] [facility] [address] [id number] [place] [address]- 5249 07 Dec, 2013 [facility] [place] [facility] [address] [id number] [place] [address]- 0010 Dec, [facility] [place] [facility] [address] [id number] [place] [address]- 0174 Dec, [facility] [place] [facility] [address] [id number] [place] [address]- 7149 Oct, [facility] [place] [facility] [address] [id number] [place] [address]- 8234 Oct, [facility] [place] [facility] [address] [facility] [id number] [place] [address]- 6139 Jul, [facility] [place] [facility] [address] [id number] [place] [address]- 5998 Jul, [facility] [place] [facility] [address] [id number] [place] [address]- 7540 Jul, [facility] [place] [facility] [address] [id number] [place] [address]- 3363 Jun, [facility] [place] [facility] [address] [id number] [place] [address]- 0020 Jun, [facility] [place] [facility] [address] [id number] [place] [address]- 9430 25 Jun, 2013 [facility] [place] [facility] [address] [id number] [place] [address]- 6231 Jun, [facility] [address] [id number] [place] [address]- 5366 Apr, [facility] [place] [facility] [address] [id number] [place] [address]- 2546 February, [facility] [place] [facility] [address] [id number] [place] [address]- 0266 Nov, [facility] [address] [id number] [place] [address]- 8517 Nov, [facility] [address] [id number] [place] [address]- 9606 Nov, [facility] [address] [id number] [place] [address] Sep, [facility] [address] [id number] [place] [address]- 3001 Sep, [facility] [address] [id number] [place] [address]- 8274 Sep, [facility] [address] [id number] [place] [address]- 2510 Sep, [facility] [address] [id number] [place] [address]- 1238 Sep, [facility] [place] [facility] [address] [id number] [place] [address]- 1140 Sep, [facility] [place] [facility] [address] [id number] [place] [address]- 7931 Sep, [facility] [place] [facility] [address] [id number] [place] [address]- 1266 Sep, [facility] [place] [facility] [address] [id number] [place] [address]- 7866 Sep, [facility] [place] [facility] [address] [id number] [address]- 8959 Sep, [facility] [place] [facility] [address] [id number] [place] [address]- 1008 Aug, [facility] [place] [facility] [address] [id number] [place] [address]- 7389 Aug, [facility] [place] [facility] [address] [id number] [place] [address]- 5259 Aug, [facility] [place] [facility] [address] [id number] [place] [address]- 6520 Aug, [facility] [place] [facility] [address] [id number] [place] [address]- 3924 Aug, [facility] [place] [facility] [address] [id number] [place] [address]- 1627 Jul, [facility] [place] [facility] [address] [id number] [place] [address]- 1129 Apr, [facility] [place] [facility] [address] [id number] [place] [address]- 1834 February, [facility] [place] [facility] [address] [id number] [place] [address]- 7154 Jan, [facility] [place] [facility] [address] [id number] [place] [address]- 2520 Jan, [facility] [place] [facility] [address] [id number] [address]- 1850 Dec, [facility] [place] [facility] [address] [id number] [place] [address]- 0766 Dec, [facility] [place] [facility] [address] [id number] [place] [address]- 1450 Oct, [facility] [place] [facility] [address] [id number] [place] [address]- 0089 Oct, [facility] [place] [facility] [address] [id number] [place] [address]- 5486 February, [facility] [place] [facility] [address] [id number] [address]- 2296 02 Sep, 2010 [facility] [address] [id number] [address]- 5393 Jul, [facility] [id number] [address]- 9739 Jul, [facility] [address] [id number] [address]- 0972 Jul, [facility] [id number] [address]- 6042 17 Jun, 2010 [facility] [id number] [address]- 1892 15 Sep, 2009 [facility] [address] [address]- 1128 Sep, [facility] [address] [address]- 7121 Sep, [facility] [id number] [address]- 9351 15 Jun, 2009 [facility] [address] [id number] [address] 8808 Dec, IMMUNIZATIONS No Known Immunizations SOCIAL HISTORY Never Assessed REASON FOR VISIT yeast PLAN OF CARE VITAL SIGNS MEDICATIONS Unknown Medications RESULTS No Results PROCEDURES No Known procedures INSTRUCTIONS MEDICATIONS ADMINISTERED No Known Medications MEDICAL (GENERAL) HISTORY Type Description Date Medical History diabetes type 1 Medical History hypertension Medical History asthma Medical History depression Medical History Diabetic Macular Edema Surgical History 1985, 1988, 1991, 1994 Hospitalization History multiple
--- OUTSIDE RECORDS SUMMARY | 2018-08-18 | XMS REPORT ---
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 Active 546031489 Problem Unspecified staphylococcus as the cause of diseases classified elsewhere B95.8 Active 50518713 Problem Local infection of the skin and subcutaneous tissue, unspecified L08.9 Active 156698402 Problem Anxiety state, unspecified F41.1 Active 131670811 Problem Essential hypertension I10 Active 82569662 Problem Migraine without status migrainosus, not intractable, unspecified migraine type G43.909 Active 11064916 Problem Depressive disorder, not elsewhere classified F32.9 Active 59063321 ALLERGIES No Information ENCOUNTERS Encounter Location Date Diagnosis [place] [id number] [place] [address]- [address] Mar, Anxiety state, unspecified F41.1 [place] [address] [address] Mar, Local infection of the skin and subcutaneous tissue, unspecified L08.9 ; Unspecified staphylococcus as the cause of diseases classified elsewhere B95.8 ; Type 2 diabetes mellitus with diabetic polyneuropathy E11.42 and senior living current use of insulin Z79.4 [place] [address] [place] [address]46- 1294 Mar, [facility] [address] [address] February, Type 2 diabetes mellitus with diabetic polyneuropathy E11.42 ; 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 ; Essential hypertension I10 ; Anxiety state, unspecified F41.1 ; Depressive disorder, not elsewhere classified F32.9 and Dysuria R30.0 [place] [address] [address] Jan, Type 2 diabetes mellitus with diabetic polyneuropathy E11.42 [place] [address] [address]- [address] Jan, Type 2 diabetes mellitus with diabetic polyneuropathy E11.42 [place] [address] [address]- [address] Jan, [facility] [place] [address] [address] Dec, Migraine without status migrainosus, not intractable, unspecified migraine type G43.909 [place] [address] [address]- [address] Dec, Type 2 diabetes mellitus with diabetic polyneuropathy E11.42 ; senior living current use of insulin Z79.4 ; Dog bite, subsequent encounter W54.0XXD and Essential hypertension I10 [facility] [place] [address] [address] Dec, Dog bite, initial encounter W54.0XXA [place] [address] [address]- [address] Dec, [place] [address] [address]- [address] Nov, [place] [address] [address]- [address] Oct, [facility] [place] [address] [address] Oct, Fissure in skin of foot R23.4 [place] [address] [address]- [address] Oct, [place] [id number] [place] [address] 17425- 2196 Oct, [place] [address] [place] [id number] [place] [address] 86997- 2503 Oct, [place] [address] [place] [id number] [place] [address] 68818- 1585 Oct, Type 2 diabetes mellitus with diabetic polyneuropathy E11.42 [place] [address] [place] [id number] [place] [address] 78509- 6064 Oct, Anxiety state, unspecified F41.1 and Depressive disorder, not elsewhere classified F32.9 [place] [address] [place] [id number] [place] [address] 94134- 2166 Oct, [place] [address] [place] [id number] [place] [address] 46323- 6257 Oct, [place] [address] [place] [id number] [place] [address] 03287- 0582 Sep, Essential hypertension I10 [place] [address] [place] [id number] [place] [address] 61490- 8925 14 Sep, 2017 [place] [address] [place] [id number] [place] [address] 38548- 9496 Sep, Type 2 diabetes mellitus with diabetic polyneuropathy E11.42 and Neuropathic ulcer of foot, unspecified laterality, unspecified ulcer stage L97.509 [place] [address] [place] [id number] [place] [address] 95027- 9049 Sep, Neuropathic ulcer of foot, unspecified laterality, unspecified ulcer stage L97.509 and Acute vaginitis N76.0 [place] [address] [place] [address] 43542- 7309 12 Sep, 2017 Type 2 diabetes mellitus with diabetic polyneuropathy E11.42 ; 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 ; Essential hypertension I10 ; 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 ; Reactive depression F32.9 ; Acute vaginitis N76.0 and Mild intermittent asthma without complication J45.20 [facility] [address] [address] 17 Jul, 2017 [facility] [address] [address] 14 Jun, 2017 [facility] [address] [place] [id number] [place] [address] 22737- 8143 May, [facility] [address] [place] [id number] [place] [address] -5636 May, Cellulitis L03.90 [facility] [address] [place] [id number] [place] [address] 72361- 5234 Mar, [facility] [address] [place] [id number] [place] [address] 05514- 9844 Jan, [facility] [address] [place] [id number] [place] [address] 19598- 1528 Jan, [facility] [address] [place] [address] 11180- 0673 Sep, [facility] [address] [place] [id number] [place] [address] 95500- 3131 Sep, [facility] [address] [place] [address] 29897- 9633 Apr, [facility] [address] [place] [address] 72492- 4465 Apr, [facility] [address] [place] [id number] [place] [address] 00306- 7939 Apr, [facility] [address] [place] [id number] [place] [address] 42994- 6365 Apr, [facility] [address] [place] [address] 715252- 5509 Apr, [facility] [address] [place] [id number] [place] [address] 86430- 9654 Apr, [facility] [place] [facility] [address] [id number] [place] [address]- 7008 Apr, [facility] [place] [facility] [address] [id number] [place] [address]- 4946 Apr, [facility] [place] [facility] [address] [id number] [place] [address]- 3373 Mar, [facility] [place] [facility] [address] [id number] [place] [address]- 3911 Mar, [facility] [place] [facility] [address] [id number] [place] [address]- 0327 Mar, [facility] [place] [facility] [address] [id number] [place] [address]- 9366 Mar, [facility] [place] [facility] [address] [id number] [place] [address]- 1665 Mar, [facility] [place] [facility] [address] [id number], [place] [address]- 5063 Mar, [facility] [place] [facility] [address] [id number] [place] [address]- 4578 Mar, [facility] [place] [facility] [address] [id number] [place] [address]- 1328 Mar, [facility] [place] [facility] [address] [id number], [place] [address]- 8678 18 Mar, 2014 [facility] [place] [facility] [address] [id number], [place] [address]- 0722 18 Mar, 2014 [facility] [place] [facility] [address] [id number] [place] [address]- 3180 16 Mar, 2014 [facility] [place] [facility] [address] [id number], [place] [address]- 9146 15 Mar, 2014 [facility] [place] [facility] [address] [id number] [place] [address]- 5225 13 Mar, 2014 [facility] [place] [facility] [address] [id number] [place] [address]- 3070 13 Mar, 2014 [facility] [place] [facility] [address] [id number] [place] [address]- 3111 Mar, [facility] [place] [facility] [address] [id number] [place] [address]- 6937 Mar, [facility] [place] [facility] [address] [id number] [place] [address]- 2174 Mar, [facility] [place] [facility] [address] [id number] [place] [address]- 1552 Mar, [facility] [place] [facility] [address] [id number] [place] [address]- 9952 Mar, [facility] [place] [facility] [address] [id number] [place] [address]- 7491 February, [facility] [place] [facility] [address] [id number] [place] [address]- 0590 February, [facility] [place] [facility] [address] [id number] [place] [address]- 3947 24 Jan, 2014 [facility] [place] [facility] [address] [id number] [place] [address]- 1233 24 Jan, 2014 [facility] [place] [facility] [address] [id number] [place] [address]- 9831 Jan, [facility] [place] [facility] [address] [id number] [place] [address]- 0589 18 Jan, 2014 [facility] [place] [facility] [address] [id number] [place] [address]- 1202 17 Jan, 2014 [facility] [place] [facility] [address] [id number] [place] [address]- 3840 17 Jan, 2014 [facility] [place] [facility] [address] [id number] [place] [address]- 7116 14 Jan, 2014 [facility] [place] [facility] [address] [id number] [place] [address]- 1456 Jan, [facility] [place] [facility] [address] [id number] [place] [address]- 3828 Jan, [facility] [place] [facility] [address] [id number] [place] [address]- 8738 Jan, [facility] [place] [facility] [address] [id number] [place] [address]- 4025 Dec, [facility] [place] [facility] [address] [id number] [place] [address]- 9378 Dec, [facility] [place] [facility] [address] [id number] [place] [address]- 7096 Dec, [facility] [place] [facility] [address] [id number] [place] [address]- 5208 Dec, [facility] [place] [facility] [address] [id number] [place] [address]- 9727 Dec, [facility] [place] [facility] [address] [id number] [place] [address]- 2651 Dec, [facility] [place] [facility] [address] [id number] [place] [address]- 1261 Dec, [facility] [place] [facility] [address] [id number] [place] [address]- 6614 Dec, [facility] [place] [facility] [address] [id number] [place] [address]- 2618 Dec, [facility] [place] [facility] [address] [id number] [place] [address]- 6563 Dec, [facility] [place] [facility] [address] [id number] [place] [address]- 7928 Oct, [facility] [place] [facility] [address] [id number] [place] [address]- 1336 Oct, [facility] [place] [facility] [address] [id number] [place] [address]- 6921 Jul, [facility] [place] [facility] [address] [id number], [place] [address]- 9236 Jul, [facility] [address] [id number] [place] [address]- 7684 Jul, [facility] [address] [id number], [place] [address]- 0475 27 Jun, 2013 [facility] [address] [id number] [place] [address]- 3685 Jun, [facility] [address] [id number] [place] [address]- 2436 Jun, [facility] [address] [id number] [place] [address]- 7226 24 Jun, 2013 [facility] [address] [id number] [place] [address]- 3200 Apr, [facility] [address] [facility] [id number] [place] [address]- 6703 February, [facility] [address] [id number] [place] [address]- 1727 Nov, [facility] [address] [facility] [id number] [place] [address]- 0492 Nov, [facility] [address] [facility] [id number] [place] [address]- 3550 Nov, [facility] [address] [facility] [id number], [place] [address]- 0440 Sep, [facility] [address] [id number][place] [address]- 0202 Sep, [facility] [place] [facility] [address] [id number] [place] [address]- 1074 Sep, [facility] [place] [facility] [address] [id number] [place] [address]- 2381 Sep, [facility] [address] [facility] [id number], [place] [address]- 9629 Sep, [facility] [place] [facility] [address] [id number] [place] [address]- 0465 Sep, [facility] [place] [facility] [address] [id number] [place] [address]- 2926 Sep, [facility] [place] [facility] [address] [id number] [place] [address]- 2886 Sep, [facility] [place] [facility] [address] [id number] [place] [address]- 7446 Sep, [facility] [place] [facility] [address] [id number] [place] [address]- 5098 Sep, [facility] [place] [facility] [address] [id number] [place] [address]- 5385 Aug, [facility] [place] [facility] [address] [id number] [place] 47[address] Aug, [facility] [place] [facility] [address] [id number] [place] [address]- 2858 Aug, [facility] [place] [facility] [address] [id number] [place] [address]- 4316 Aug, [facility] [place] [facility] [address] [id number] [place] [address]- 0722 Aug, [facility] [place] [facility] [address] [id number] [place] [address]- 4265 Jul, [facility] [place] [facility] [address] [id number] [place] [address]- 1329 Apr, [facility] [place] [facility] [address] [id number] [place] [address]- 4566 February, [facility] [place] [facility] [address] [id number] [place] [address]- 5892 Jan, [facility] [place] [facility] [address] [id number] [place] [address]- 1426 Jan, [facility] [place] [facility] [address] [id number] [place] [address]- 2592 14 Dec, 2011 [facility] [address] [facility] [id number], [place] [address]- 4687 Dec, [facility] [address] [facility] [id number], [place] [address]- 9526 Oct, [facility] [address] [place] [address] 2546 Oct, [facility] [address] [place] [address]- 1216 February, [facility] [address] [facility] [id number], [place] [address]- 6586 Sep, [facility] [id number] [place] [address] 06699- 6926 Jul, [facility] [address], [place] [address]- 0496 Jul, [facility] [address], [place] [address]- 0880 Jul, [facility] [address] [place] [address]- 3715 Jun, [facility] [address] [place] [address]- 0559 Sep, [facility] [address] [place] [address]- 3576 Sep, [facility] [address] [place] [id number] [address] 2546 Sep, [facility] [address] [place] [id number] [address]- 7182 15 Jun, 2009 [facility] [address], [place] [address]- 1606 Dec, IMMUNIZATIONS No Known Immunizations SOCIAL HISTORY Never Assessed REASON FOR VISIT PLAN OF CARE VITAL SIGNS MEDICATIONS Medication Instructions Dosage Frequency Start Date End Date Duration Status Glucocard Expression Test - In Vitro 3 times a day test strips 8h Sep, Active RESULTS No Results PROCEDURES No Known procedures INSTRUCTIONS MEDICATIONS ADMINISTERED No Known Medications MEDICAL (GENERAL) HISTORY Type Description Date Medical History diabetes type 1 Medical History hypertension Medical History asthma Medical History depression Medical History Diabetic Macular Edema Surgical History 1985, 1988, 1991, 1994 Hospitalization History multiple
--- OUTSIDE RECORDS SUMMARY | 2018-08-18 00:01 | XMS REPORT ---
Author Author ALVA BENTLEY [facility] Address [address] [place] [address] Care Team Providers Care Grade Setter Name Role Phone ALVA BENTLEY Unavailable PROBLEMS Type Condition ICD9-CM Code ZMD95-FX Code Onset Dates Condition Status SNOMED Code Problem Type 2 diabetes mellitus with diabetic polyneuropathy E11.42 Active 68237203 Problem Mild intermittent asthma without complication J45.20 Active 419777745 Problem superintendent terminal current use of insulin Z79.4 Active 506672655 Problem Unspecified staphylococcus as the cause of diseases classified elsewhere B95.8 Active 49347583 Problem Local infection of the skin and subcutaneous tissue, unspecified L08.9 Active 287663132 Problem Anxiety state, unspecified F41.1 Active 946849665 Problem Essential hypertension I10 Active 40672121 Problem Migraine without status migrainosus, not intractable, unspecified migraine type G43.909 Active 88338233 Problem Depressive disorder, not elsewhere classified F32.9 Active 25664587 ALLERGIES No Information ENCOUNTERS Encounter Location Date Diagnosis [place] [address] [place] [address]- 7848 Mar, Anxiety state, unspecified F41.1 [place] [address] [address] Mar, Local infection of the skin and subcutaneous tissue, unspecified L08.9 ; Unspecified staphylococcus as the cause of diseases classified elsewhere B95.8 ; Type 2 diabetes mellitus with diabetic polyneuropathy E11.42 and senior living current use of insulin Z79.4 [place] [address] [place] [address]1994- 3367 Mar, [facility] [address] [address] February, Type 2 diabetes mellitus with diabetic polyneuropathy E11.42 ; superintendent terminal current use of insulin Z79.4 ; Essential hypertension I10 ; Anxiety state, unspecified F41.1 ; Depressive disorder, not elsewhere classified F32.9 and Dysuria R30.0 [place] [address] [address] Jan, Type 2 diabetes mellitus with diabetic polyneuropathy E11.42 [place] [address] [address]- 6[address] Jan, Type 2 diabetes mellitus with diabetic polyneuropathy E11.42 [place] [address] [address]- [address] Jan, [facility] [place] [address] [address] Dec, Migraine without status migrainosus, not intractable, unspecified migraine type G43.909 [place] [address] [address]- [address]34 Dec, Type 2 diabetes mellitus with diabetic polyneuropathy E11.42 ; senior living current use of insulin Z79.4 ; Dog bite, subsequent encounter W54.0XXD and Essential hypertension I10 [facility] [place] [address] [address] Dec, Dog bite, initial encounter W54.0XXA [place] [address] [address]- [address]127 Dec, [place] [address] [address]- 9174 Nov, [place] [address] [address]36- 0914 Oct, [facility] [place] [address] [address] Oct, Fissure in skin of foot R23.4 [place] [address] 25837- 3544 Oct, [place] [address] [place] [address] 18607- 2385 Oct, [place] [address] [place] [id number] [place] [address] 98563- 3151 Oct, [place] [address] [place] [id number] [place] [address] 43740- 0656 Oct, Type 2 diabetes mellitus with diabetic polyneuropathy E11.42 [place] [address] [place] [id number] [place] [address] 08041- 6109 Oct, Anxiety state, unspecified F41.1 and Depressive disorder, not elsewhere classified F32.9 [place] [address] [place] [id number] [place] [address] 02255- 9132 Oct, [place] [address] [place] [id number] [place] [address] 28465- 4140 Oct, [place] [address] [place] [id number] [place] [address] 62065- 0915 Sep, Essential hypertension I10 [place] [address] [place] [id number] [place] [address] 11401- 2927 14 Sep, 2017 [place] [address] [place] [id number] [place] [address] 65928- 3138 Sep, Type 2 diabetes mellitus with diabetic polyneuropathy E11.42 and Neuropathic ulcer of foot, unspecified laterality, unspecified ulcer stage L97.509 [place] [address] [place] [id number] [place] [address] 53078- 7817 Sep, Neuropathic ulcer of foot, unspecified laterality, unspecified ulcer stage L97.509 and Acute vaginitis N76.0 [place] [address] [place] [address] 13511- 4270 12 Sep, 2017 Type 2 diabetes mellitus with diabetic polyneuropathy E11.42 ; superintendent terminal current use of insulin Z79.4 ; Essential hypertension I10 ; 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 ; Reactive depression F32.9 ; Acute vaginitis N76.0 and Mild intermittent asthma without complication J45.20 [facility] [address] [address]- 6[address] 17 Jul, 2017 [facility] [address] [address] 14 Jun, 2017 [facility] [address] [place] [id number] [place] [address] 93496- 3547 May, [facility] [address] [place] [id number] [place] [address] 02465 -2848 May, Cellulitis L03.90 [facility] [address] [place] [id number] [place] [address] 62362- 2285 Mar, [facility] [address] [place] [id number] [place] [address] 11237- 9256 Jan, [facility] [address] [place] [id number] [place] [address] 90824- 2655 Jan, [facility] [address] [place] [address] 02901- 8407 Sep, [facility] [address] [place] [id number] [place] [address] 20611- 9141 Sep, [facility] [address] [place] [address] 82133- 4474 Apr, [facility] [address] [place] [address] 01701- 0201 Apr, [facility] [address] [place] [id number] [place] [address] 92747- 8229 Apr, [facility] [address] [place] [id number] [place] [address] 64740- 8277 Apr, [facility] [address] [place] [address] 076267- 1719 Apr, [facility] [address] [place] [id number] [place] [address] 05266- 6020 Apr, [facility] [place] [facility] [address] [id number] [place] [address]- 0807 Apr, [facility] [place] [facility] [address] [id number] [place] [address]- 4877 Apr, [facility] [place] [facility] [address] [id number] [place] [address]- 2042 Mar, [facility] [place] [facility] [address] [id number] [place] [address]- 8374 Mar, [facility] [place] [facility] [address] [id number] [place] [address]- 5313 Mar, [facility] [place] [facility] [address] [id number] [place] [address]- 7882 Mar, [facility] [place] [facility] [address] [id number] [place] [address]- 8828 Mar, [facility] [place] [facility] [address] [id number] [address]- 9644 Mar, [facility] [place] [facility] [address] [id number] [place] [address]- 0507 Mar, [facility] [place] [facility] [address] [id number] [place] [address]- 4080 Mar, [facility] [place] [facility] [address] [id number] [address]- 6137 18 Mar, 2014 [facility] [place] [facility] [address] [id number] [address]- 6479 18 Mar, 2014 [facility] [place] [facility] [address] [id number] [place] [address]- 8564 16 Mar, 2014 [facility] [place] [facility] [address] [id number] [address]- 7472 15 Mar, 2014 [facility] [place] [facility] [address] [id number] [place] [address]- 4627 13 Mar, 2014 [facility] [place] [facility] [address] [id number] [place] [address]- 9000 13 Mar, 2014 [facility] [place] [facility] [address] [id number] [place] [address]- 9397 Mar, [facility] [place] [facility] [address] [id number] [place] [address]- 4863 Mar, [facility] [place] [facility] [address] [id number] [place] [address]- 2450 Mar, [facility] [place] [facility] [address] [id number] [place] [address]- 8771 Mar, [facility] [place] [facility] [address] [id number] [place] [address]- 3583 Mar, [facility] [place] [facility] [address] [id number] [place] [address]- 2534 February, [facility] [place] [facility] [address] [id number] [place] [address]- 4580 February, [facility] [place] [facility] [address] [id number] [place] [address]- 4211 24 Jan, 2014 [facility] [place] [facility] [address] [id number] [place] [address]- 6002 24 Jan, 2014 [facility] [place] [facility] [address] [id number] [place] [address]- 1757 Jan, [facility] [place] [facility] [address] [id number] [place] [address]- 6682 18 Jan, 2014 [facility] [place] [facility] [address] [id number] [place] [address]- 9228 17 Jan, 2014 [facility] [place] [facility] [address] [id number] [place] [address]- 6820 17 Jan, 2014 [facility] [place] [facility] [address] [id number] [place] [address]- 3905 14 Jan, 2014 [facility] [place] [facility] [address] [id number] [place] [address]- 2093 Jan, [facility] [place] [facility] [address] [id number] [place] [address]- 3116 Jan, [facility] [place] [facility] [address] [id number] [place] [address]- 1551 Jan, [facility] [place] [facility] [address] [id number] [place] [address]- 2507 Dec, [facility] [place] [facility] [address] [id number] [place] [address]- 3598 Dec, [facility] [place] [facility] [address] [id number] [place] [address]- 4536 Dec, [facility] [place] [facility] [address] [id number] [place] [address]- 7300 Dec, [facility] [place] [facility] [address] [id number] [place] [address]- 2284 Dec, [facility] [place] [facility] [address] [id number] [place] [address]- 1663 Dec, [facility] [place] [facility] [address] [id number] [place] [address]- 0491 Dec, [facility] [place] [facility] [address] [id number] [place] [address]- 0766 Dec, [facility] [place] [facility] [address] [id number] [place] [address]- 1826 Dec, [facility] [place] [facility] [address] [id number] [place] [address]- 2624 Dec, [facility] [place] [facility] [address] [id number] [place] [address]- 4178 Oct, [facility] [place] [facility] [address] [id number] [place] [address]- 8206 Oct, [facility] [place] [facility] [address] [id number] [place] [address]- 0064 Jul, [facility] [place] [facility] [address] [id number] [address]- 1576 Jul, [facility] [address] [id number] [place] [address]- 4295 Jul, [facility] [address] [id number] [address]- 8981 27 Jun, 2013 [facility] [address] [id number] [place] [address]- 3354 Jun, [facility] [address] [id number] [place] [address]- 7931 Jun, [facility] [address] [id number] [place] [address]- 2813 24 Jun, 2013 [facility] [address] [id number] [place] [address]- 4025 Apr, [facility] [address] [facility] [id number] [place] [address]- 4177 February, [facility] [address] [id number] [place] [address]- 4121 Nov, [facility] [address] [facility] [id number] [place] [address]- 6934 Nov, [facility] [address] [facility] [id number] [place] [address]- 4629 Nov, [facility] [address] [facility] [id number] [address]- 9894 Sep, [facility] [address] [id number] [address]- 6004 Sep, [facility] [place] [facility] [address] [id number] [place] [address]- 2658 Sep, [facility] [place] [facility] [address] [id number] [place] [address]- 2001 Sep, [facility] [address] [facility] [id number] [address]- 1089 Sep, [facility] [place] [facility] [address] [id number] [place] [address]- 5013 Sep, [facility] [place] [facility] [address] [id number] [place] [address]- 8436 Sep, [facility] [place] [facility] [address] [id number] [place] [address]- 1366 Sep, [facility] [place] [facility] [address] [id number] [place] [address]- 9396 Sep, [facility] [place] [facility] [address] [id number] [place] [address]- 9434 Sep, [facility] [place] [facility] [address] [id number] [place] [address]- 2433 Aug, [facility] [place] [facility] [address] [id number] [place] [address] Aug, [facility] [place] [facility] [address] [id number] [place] [address]- 2594 Aug, [facility] [place] [facility] [address] [id number] [place] [address]- 0958 Aug, [facility] [place] [facility] [address] [id number] [place] [address]- 2794 Aug, [facility] [place] [facility] [address] [id number] [place] [address]- 7518 Jul, [facility] [place] [facility] [address] [id number] [place] [address]- 7207 Apr, [facility] [place] [facility] [address] [id number] [place] [address]- 1524 February, [facility] [place] [facility] [address] [id number] [place] [address]- 1427 Jan, [facility] [place] [facility] [address] [id number] [place] [address]- 8061 Jan, [facility] [place] [facility] [address] [id number] [place] [address]- 7717 14 Dec, 2011 [facility] [address] [address]- 8531 Dec, [facility] [address] [address]- 6836 Oct, [facility] [address] [address]- 2726 Oct, [facility] [address] [place] [id number] [place] [address] 21049- 3915 February, [facility] [address] [place] [address] 15836- 1369 Sep, [facility] [address] [place] [id number] [place] [address] 89989- 9016 Jul, [facility] [address] [place] [address] 93190- 6349 Jul, [facility] [address] [address]- 3999 Jul, [facility] [address] [address]- 5151 Jun, [facility] [address] 5585 15 Sep, 2009 [facility] [address] [address]- 4118 Sep, [facility] [address] [address]- 9506 Sep, [facility] [address] [place] [id number] [address]- 4042 15 Jun, 2009 [facility] [address] [address]- 3561 10 Dec, 2008 IMMUNIZATIONS No Known Immunizations SOCIAL HISTORY Never Assessed REASON FOR VISIT PALS-Clarification PLAN OF CARE VITAL SIGNS MEDICATIONS Unknown Medications RESULTS No Results PROCEDURES No Known procedures INSTRUCTIONS MEDICATIONS ADMINISTERED No Known Medications MEDICAL (GENERAL) HISTORY Type Description Date Medical History diabetes type 1 Medical History hypertension Medical History asthma Medical History depression Medical History Diabetic Macular Edema Surgical History 1985, 1988, 1991, 1994 Hospitalization History multiple
--- OUTSIDE RECORDS SUMMARY | 2018-08-18 00:01 | XMS REPORT ---
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1 Active 621325469 Problem Essential hypertension I10 Active 70707097 Problem Migraine without status migrainosus, not intractable, unspecified migraine type G43.909 Active 29438262 Problem Depressive disorder, not elsewhere classified F32.9 Active 64553121 ALLERGIES No Information ENCOUNTERS Encounter Location Date Diagnosis [place] [address] [id number] [address] Mar, Local infection of the skin and subcutaneous tissue, unspecified L08.9 ; Unspecified staphylococcus as the cause of diseases classified elsewhere B95.8 ; Type 2 diabetes 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 and halfway current use of insulin Z79.4 [facility] [address] [facility] [id number], [place] [address] Mar, [facility] [id number] [place] [address] 28388- 8284 February, Type 2 diabetes mellitus with diabetic polyneuropathy E11.42 ; 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.4 ; Essential hypertension I10 ; Anxiety state, unspecified F41.1 ; Depressive disorder, not elsewhere classified F32.9 and Dysuria R30.0 [facility] [id number] [place] [address] 12923- 9102 Jan, Type 2 diabetes mellitus with diabetic polyneuropathy E11.42 [facility] [id number] [place] [address] 79522- 0466 Jan, Type 2 diabetes mellitus with diabetic polyneuropathy E11.42 [place] [address] [address] Jan, [facility] [address] [address] Dec, Migraine without status migrainosus, not intractable, unspecified migraine type G43.909 [place] [id number] [place] [address] 24708- 1357 Dec, Type 2 diabetes mellitus with diabetic polyneuropathy E11.42 ; halfway current use of insulin Z79.4 ; Dog bite, subsequent encounter W54.0XXD and Essential hypertension I10 [facility] [id number] [place] [address] Dec, Dog bite, initial encounter W54.0XXA [place] [id number] [place] [address] 88406- 4745 Dec, [facility] [id number] [place] [address] 66974- 4317 Nov, [facility] [id number] [place] [address] 96352- 1112 Oct, [facility] [id number] [place] [address] Oct, Fissure in skin of foot R23.4 [facility] [id number] [place] [address] 43309- 3413 Oct, [facility] [address] [address]- [address] Oct, [place] [id number] [place] [address] 56257- 2417 Oct, [place] [id number] [place] [address] 98874- 4750 Oct, Type 2 diabetes mellitus with diabetic polyneuropathy E11.42 [place] [id number] [place] [address] 81571- 1136 Oct, Anxiety state, unspecified F41.1 and Depressive disorder, not elsewhere classified F32.9 [place] [id number] [place] [address] 60600- 8653 Oct, [place] [id number] [place] [address] 46234- 4092 Oct, [place] [id number] [place] [address] 45358- 3681 Sep, Essential hypertension I10 [place] [id number] [place] [address] 51033- 2008 14 Sep, 2017 [place] [id number] [place] [address] 29695- 7481 13 Sep, 2017 Type 2 diabetes mellitus with diabetic polyneuropathy E11.42 and Neuropathic ulcer of foot, unspecified laterality, unspecified ulcer stage L97.509 [place] [id number] [place] [address] 85516- 0137 13 Sep, 2017 Neuropathic ulcer of foot, unspecified laterality, unspecified ulcer stage L97.509 and Acute vaginitis N76.0 [place] [id number] [place] [address] 41377- 5458 12 Sep, 2017 Type 2 diabetes mellitus with diabetic polyneuropathy E11.42 ; halfway current use of insulin Z79.4 ; Essential hypertension I10 ; 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 ; Reactive depression F32.9 ; Acute vaginitis N76.0 and Mild intermittent asthma without complication J45.20 [place] [id number] [place] [address] 92462- 7847 Jul, [facility] [address] [id number] [place] [address] Jun, [facility] [address] [id number] [place] [address] 87[address] May, [facility] [address] [facility] [id number] [place] [address] May, Cellulitis L03.90 [facility] [address] [id number] [place] [address] 8935 Mar, [facility] [address] [id number] [place] [address]- 5515 Jan, [facility] [address] [facility] [id number] [place] [address]- 6935 Jan, [facility] [address] [id number] [place] [address]- 3195 Sep, [facility] [address] [facility] [id number] [place] [address]- 8512 Sep, [facility] [address] [facility] [id number] [place] [address]- 5073 Apr, [facility] [address] [facility] [id number] [place] [address]- 2169 Apr, [facility] [address] [facility] [id number] [place] [address]- 2628 Apr, [facility] [address] [id number] [place] [address]- 0446 Apr, [facility] [address] [facility] [id number] [place] [address] Apr, [facility] [address] [facility] [id number] [place] [address]- 1806 Apr, [facility] [address] [facility] [id number] [place] [address] Apr, [facility] [place] [facility] [address] [id number] [place] [address]- 1047 Apr, [facility] [place] [facility] [address] [id number] [place] [address]- 0523 Mar, [facility] [place] [facility] [address] [id number] [place] [address]- 4123 Mar, [facility] [place] [facility] [address] [id number] [place] [address]- 6911 Mar, [facility] [place] [facility] [address] [id number] [place] [address]- 3111 Mar, [facility] [place] [facility] [address] [id number] [place] [address]- 9008 Mar, [facility] [place] [facility] [address] [id number] [place] [address]- 9984 Mar, [facility] [place] [facility] [address] [id number] [place] [address]- 7077 Mar, [facility] [place] [facility] [address] [id number] [place] [address]- 4652 Mar, [facility] [place] [facility] [address] [id number] [place] [address]- 7090 Mar, [facility] [place] [facility] [address] [id number] [place] [address]- 7524 18 Mar, 2014 [facility] [place] [facility] [address] [id number] [place] [address]- 2449 16 Mar, 2014 [facility] [place] [facility] [address] [id number] [place] [address]- 2729 15 Mar, 2014 [facility] [place] [facility] [address] [id number] [place] [address]- 6050 13 Mar, 2014 [facility] [place] [facility] [address] [id number] [place] [address]- 8622 13 Mar, 2014 [facility] [place] [facility] [address] [id number] [place] [address]- 8442 Mar, [facility] [place] [facility] [address] [id number] [place] [address]- 9145 Mar, [facility] [place] [facility] [address] [id number] [place] [address]- 7565 Mar, [facility] [place] [facility] [address] [id number] [place] [address]- 0115 Mar, [facility] [place] [facility] [address] [id number] [place] [address]- 1989 Mar, [facility] [place] [facility] [address] [id number] [place] [address]- 2936 February, [facility] [place] [facility] [address] [id number] [place] [address]- 2089 February, [facility] [place] [facility] [address] [id number] [place] [address]- 8206 Jan, [facility] [place] [facility] [address] [id number] [place] [address]- 7323 24 Jan, 2014 [facility] [place] [facility] [address] [id number] [place] [address]- 9395 Jan, [facility] [place] [facility] [address] [id number] [place] [address]- 5084 Jan, [facility] [place] [facility] [address] [id number] [place] [address]- 5865 17 Jan, 2014 [facility] [place] [facility] [address] [id number] [place] [address]- 7806 17 Jan, 2014 [facility] [place] [facility] [address] [id number] [place] [address]- 8855 14 Jan, 2014 [facility] [place] [facility] [address] [id number] [place] [address]- 3849 11 Jan, 2014 [facility] [place] [facility] [address] [id number] [place] [address]- 1521 10 Jan, 2014 [facility] [place] [facility] [address] [id number] [place] [address]- 2535 10 Jan, 2014 [facility] [place] [facility] [address] [id number] [place] [address]- 4999 17 Dec, 2013 [facility] [place] [facility] [address] [id number] [place] [address]- 2546 17 Dec, 2013 [facility] [place] [facility] [address] [id number] [place] [address]- 3518 11 Dec, 2013 [facility] [place] [facility] [address] [id number] [place] [address]- 1490 11 Dec, 2013 [facility] [place] [facility] [address] [id number] [place] [address]- 8570 Dec, [facility] [place] [facility] [address] [id number] [place] [address]- 8902 Dec, [facility] [place] [facility] [address] [id number] [place] [address]- 9821 07 Dec, 2013 [facility] [place] [facility] [address] [id number] [place] [address]- 9426 07 Dec, 2013 [facility] [place] [facility] [address] [id number] [place] [address]- 1843 Dec, [facility] [place] [facility] [address] [id number] [place] [address]- 1910 Dec, [facility] [place] [facility] [address] [id number] [place] [address]- 2112 Oct, [facility] [place] [facility] [address] [id number] [place] [address]- 8116 Oct, [facility] [place] [facility] [address] [id number] [place] [address]- 4595 Jul, [facility] [place] [facility] [address] [id number] [place] [address]- 2546 Jul, [facility] [place] [facility] [address] [id number] [place] [address]- 5827 08 Jul, 2013 [facility] [address] [id number] [place] [address]- 8488 27 Jun, 2013 [facility] [address] [id number] [place] [address]- 5700 26 Jun, 2013 [facility] [address] [id number] [place] [address]- 1412 25 Jun, 2013 [facility] [place] [facility] [address] [id number] [place] [address]- 6447 24 Jun, 2013 [facility] [address] [id number] [place] [address]- 6645 Apr, [facility] [place] [facility] [address] [id number] [place] [address]- 0353 February, [facility] [address] [id number] [place] [address]- 1612 Nov, [facility] [address] [id number] [place] [address]- 8084 Nov, [facility] [address] [id number] [place] [address]- 8350 Nov, [facility] [address] [facility] [id number] [place] [address]- 6131 Sep, [facility] [address] [id number] [place] [address]- 4062 Sep, [facility] [place] [facility] [address] [id number], [place] [address]- 7804 18 Sep, 2012 [facility] [place] [facility] [address] [id number] [place] [address]- 6438 Sep, [facility] [place] [facility] [address] [id number] [place] [address]- 3467 Sep, [facility] [place] [facility] [address] [id number] [place] [address]- 2069 Sep, [facility] [place] [facility] [address] [id number] [place] [address]- 0520 07 Sep, 2012 [facility] [address] [id number] [place] [address]- 4356 Sep, [facility] [place] [facility] [address] [id number] [place] [address]- 7026 Sep, [facility] [place] [facility] [address] [id number] [place] [address]- 3306 Sep, [facility] [place] [facility] [address] [id number] [place] [address]- 3163 Aug, [facility] [place] [facility] [address] [id number] [place] [address]- 1973 Aug, [facility] [place] [facility] [address] [id number] [place] [address]- 3849 Aug, [facility] [place] [facility] [address] [id number] [place] [address]- 9035 Aug, [facility] [place] [facility] [address] [id number] [place] [address]- 1916 Aug, [facility] [place] [facility] [address] [id number] [place] [address]- 3958 Jul, [facility] [place] [facility] [address] [id number] [place] [address]- 9018 Apr, [facility] [place] [facility] [address] [id number] [place] [address]- 3855 February, [facility] [place] [facility] [address] [id number] [place] [address]- 1470 Jan, [facility] [place] [facility] [address] [id number] [place] [address]- 5121 Jan, [facility] [place] [facility] [address] [id number] [place] [address]- 8749 Dec, [facility] [place] [facility] [address] [id number] [place] [address]- 4333 Dec, [facility] [address] [facility] [id number], [place] [address]- 6009 Oct, [facility] [address] [facility] [id number], [place] [address]- 8466 Oct, [facility] [address] [facility] [id number], [place] [address]- 2656 February, [facility] [address] [facility] [id number], [place] [address]- 6666 Sep, [facility] [address] [facility] [id number], [place] [address]- 2536 Jul, [facility] [address] [facility] [id number], [place] [address]- 5016 Jul, [facility] [id number], [place] [address]- 2901 Jul, [facility] [id number], [place] [address]- 9257 Jun, [facility] [id number], [place] [address]- 6437 Sep, [facility] [id number], [place] [address]- 3919 Sep, [facility] [id number], [place] [address]- 5569 Sep, [facility] [id number], [place] [address]- 6412 15 Jun, 2009 [facility] [id number], [place] [address]- 0291 Dec, IMMUNIZATIONS No Known Immunizations SOCIAL HISTORY Never Assessed REASON FOR VISIT Returned call PLAN OF CARE VITAL SIGNS MEDICATIONS No Known Medications RESULTS No Results PROCEDURES No Known procedures INSTRUCTIONS MEDICATIONS ADMINISTERED No Known Medications MEDICAL (GENERAL) HISTORY Type Description Date Medical History diabetes type 1 Medical History hypertension Medical History asthma Medical History depression Medical History Diabetic Macular Edema Surgical History 1985, 1988, 1991, 1994 Hospitalization History multiple
--- OUTSIDE RECORDS SUMMARY | 2018-08-18 00:01 | XMS REPORT ---
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 Active 193651162 Problem Unspecified staphylococcus as the cause of diseases classified elsewhere B95.8 Active 30601037 Problem Local infection of the skin and subcutaneous tissue, unspecified L08.9 Active 359029028 Problem Anxiety state, unspecified F41.1 Active 553953234 Problem Essential hypertension I10 Active 86294504 Problem Migraine without status migrainosus, not intractable, unspecified migraine type G43.909 Active 80843509 Problem Depressive disorder, not elsewhere classified F32.9 Active 89766461 ALLERGIES No Information ENCOUNTERS Encounter Location Date Diagnosis [place] [id number] [place] [address] 80245- 5149 Apr, Type 2 diabetes mellitus with diabetic polyneuropathy E11.42 [place] [address] [place] [id number] [place] [address] 39409- 7720 Apr, [place] [address] [place] [id number] [place] [address] 85907- 0256 Apr, [place] [address] [place] [id number] [place] [address] 32956- 9368 Mar, [place] [address] [place] [id number] [place] [address] 68328- 8272 Mar, Anxiety state, unspecified F41.1 [place] [address] [place] [id number] [place] [address] 07724- 5740 Mar, Local infection of the skin and subcutaneous tissue, unspecified L08.9 ; Unspecified staphylococcus as the cause of diseases classified elsewhere B95.8 ; Type 2 diabetes mellitus with diabetic polyneuropathy E11.42 and halfway current use of insulin Z79.4 [place] [address] [place] [id number] [place] [address] 66659- 3190 Mar, [place] [address] 45993- 4192 February, Type 2 diabetes mellitus with diabetic polyneuropathy E11.42 ; 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 [address] [place] [id number] [place] [address] 64728 -1426 Dec, Dog bite, initial encounter W54.0XXA [place] [address] 9[address]19- 1230 Dec, [facility] [place] [address], [place] [address] 4834 Nov, [facility] [place] [address], [place] [address] 4678 Oct, [facility] [address], [place] [address]148 Oct, Fissure in skin of foot R23.4 [facility] [place] [address], [place] [address]- 8840 Oct, [facility] [place] [id number] [place] [address] 34735- 8519 Oct, [facility] [place] [address] [place] [address]- 8156 Oct, [facility] [place] [address] [place] [id number] [place] [address] 84789- 7757 Oct, Type 2 diabetes mellitus with diabetic polyneuropathy E11.42 [facility] [place] [address] [address]- 6599 Oct, Anxiety state, unspecified F41.1 and Depressive disorder, not elsewhere classified F32.9 [facility] [place] [address] [place] [address]- 7587 Oct, [facility] [place] [address] [address]- 4624 Oct, [facility] [place] [address] [address]- 8486 Sep, Essential hypertension I10 [facility] [place] [address], [place] [address]- 0024 14 Sep, 2017 [facility] [place] [address] [address]- 2629 13 Sep, 2017 Type 2 diabetes mellitus with diabetic polyneuropathy E11.42 and Neuropathic ulcer of foot, unspecified laterality, unspecified ulcer stage L97.509 [facility] [place] [address] [address]- 3944 13 Sep, 2017 Neuropathic ulcer of foot, unspecified laterality, unspecified ulcer stage L97.509 and Acute vaginitis N76.0 [facility] [place] [address] [place] [id number] [address]- 2133 12 Sep, 2017 Type 2 diabetes mellitus with diabetic polyneuropathy E11.42 ; 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 ; Essential hypertension I10 ; 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 ; Reactive depression F32.9 ; Acute vaginitis N76.0 and Mild intermittent asthma without complication J45.20 [facility] [place] [address] [place] [id number] [place] [address] 84816- 7455 17 Jul, 2017 [facility] [address] [place] [id number] [place] [address] 53414 -9704 14 Jun, 2017 [facility] [place] [address] [place] [id number] [place] [address] 32263- 2893 May, [facility] [address] [place] [id number] [place] [address] 79145 -4853 May, Cellulitis L03.90 [facility] [place] [address] [place] [id number] [place] [address] 89136- 8320 Mar, [facility] [place] [address] [place] [id number] [place] [address] 83340- 2051 14 Jan, 2015 [facility] [place] [address] [place] [id number] [place] [address] 82834- 1941 Jan, [facility] [place] [address] [place] [id number] [place] [address] 78033- 7849 Sep, [facility] [place] [address] [place] [id number] [place] [address] 07516- 4451 Sep, [facility] [place] [address] [place] [id number] [place] [address] 62076- 6578 Apr, [facility] [place] [address] [place] [id number] [place] [address]- 6963 Apr, [facility] [place] [facility] [address] [id number] [place] [address]- 2185 Apr, 2013 [facility] [place] [facility] [address] [id number] [place] [address]- 4597 Apr, 2013 [facility] [place] [facility] [address] [id number] [place] [address]- 3509 Apr, 2013 [facility] [place] [facility] [address] [id number] [place] [address]- 8957 Apr, 2013 [facility] [place] [facility] [address] [id number] [place] [address]- 5072 Apr, [facility] [place] [facility] [address] [id number] [place] [address]- 1748 Apr, [facility] [place] [facility] [address] [id number] [place] [address]- 2651 Mar, [facility] [place] [facility] [address] [id number] [place] [address]- 6701 Mar, [facility] [place] [facility] [address] [id number] [place] [address]- 4877 Mar, [facility] [place] [facility] [address] [id number] [place] [address]- 7911 Mar, [facility] [place] [facility] [address] [id number] [place] [address]- 3561 Mar, [facility] [place] [facility] [address] [id number] [place] [address]- 5034 Mar, [facility] [place] [facility] [address] [id number] [place] [address]- 5503 Mar, [facility] [place] [facility] [address] [id number] [place] [address]- 1534 Mar, [facility] [place] [facility] [address] [id number] [place] [address]- 8488 Mar, [facility] [place] [facility] [address] [id number] [place] [address]- 3976 18 Mar, 2014 [facility] [place] [facility] [address] [id number] [place] [address]- 4700 16 Mar, 2014 [facility] [place] [facility] [address] [id number] [place] [address]- 8284 15 Mar, 2014 [facility] [place] [facility] [address] [id number] [place] [address]- 5791 Mar, [facility] [place] [facility] [address] [id number] [place] [address]- 0753 Mar, [facility] [place] [facility] [address] [id number] [place] [address]- 5052 Mar, [facility] [place] [facility] [address] [id number] [place] [address]- 7039 Mar, [facility] [place] [facility] [address] [id number] [place] [address]- 1866 Mar, [facility] [place] [facility] [address] [id number] [place] [address]- 6365 Mar, [facility] [place] [facility] [address] [id number] [place] [address]- 9902 Mar, [facility] [place] [facility] [address] [id number] [place] [address]- 0885 February, [facility] [place] [facility] [address] [id number] [place] [address]- 9469 February, [facility] [place] [facility] [address] [id number] [place] [address]- 0144 Jan, [facility] [place] [facility] [address] [id number] [place] [address]- 3839 Jan, [facility] [place] [facility] [address] [id number] [place] [address]- 7559 Jan, [facility] [place] [facility] [address] [id number] [place] [address]- 9234 18 Jan, 2014 [facility] [place] [facility] [address] [id number] [place] [address]- 7936 17 Jan, 2014 [facility] [place] [facility] [address] [id number] [place] [address]- 0535 17 Jan, 2014 [facility] [place] [facility] [address] [id number] [place] [address]- 8612 14 Jan, 2014 [facility] [place] [facility] [address] [id number] [place] [address]- 2486 11 Jan, 2014 [facility] [place] [facility] [address] [id number] [place] [address]- 7375 10 Jan, 2014 [facility] [place] [facility] [address] [id number] [place] [address]- 5767 10 Jan, 2014 [facility] [place] [facility] [address] [id number] [place] [address]- 6378 Dec, [facility] [place] [facility] [address] [id number] [place] [address]- 3736 17 Dec, 2013 [facility] [place] [facility] [address] [id number] [place] [address]- 1007 Dec, [facility] [place] [facility] [address] [id number] [place] [address]- 5387 Dec, [facility] [place] [facility] [address] [id number] [place] [address]- 0509 Dec, [facility] [place] [facility] [address] [id number] [place] [address]- 8353 10 Dec, 2013 [facility] [place] [facility] [address] [id number] [place] [address]- 5028 07 Dec, 2013 [facility] [place] [facility] [address] [id number] [place] [address]- 7603 07 Dec, 2013 [facility] [place] [facility] [address] [id number] [place] [address]136 03 Dec, 2013 [facility] [place] [facility] [address] [id number] [place] [address]- 6101 Dec, [facility] [address] [id number] [place] [address]- 6017 Oct, [facility] [place] [facility] [address] [id number] [place] [address]- 0063 Oct, [facility] [address] [id number] [place] [address]- 8463 Jul, [facility] [address] [id number] [place] [address]- 4736 Jul, [facility] [address] [id number] [place] [address]- 2604 Jul, [facility] [address] [id number] [place] [address]- 1419 Jun, [facility] [address] [id number] [place] [address]- 4120 Jun, [facility] [address] [id number] [place] [address]- 3254 Jun, [facility] [address] [id number] [place] [address]- 8177 Jun, [facility] [address] [id number] [place] [address]- 7709 Apr, [facility] [place] [facility] [address] [id number] [place] [address]- 6641 February, [facility] [address] [id number] [place] [address]- 5644 Nov, [facility] [place] [facility] [address] [id number] [place] [address]- 4915 Nov, [facility] [place] [facility] [address] [id number] [place] [address]- 3556 Nov, [facility] [place] [facility] [address] [id number] [place] [address]- 3636 Sep, [facility] [place] [facility] [address] [id number] [place] [address]- 4580 Sep, [facility] [place] [facility] [address] [id number] [place] [address]- 3358 Sep, [facility] [place] [facility] [address] [facility] [id number] [place] [address]- 4233 Sep, [facility] [place] [facility] [address] [id number] [place] [address]- 1396 Sep, [facility] [place] [facility] [address] [id number] [place] [address]- 4084 Sep, [facility] [place] [facility] [address] [id number] [place] 3539 Sep, [facility] [place] [facility] [address] [facility] [id number] [place] [address]- 5519 Sep, [facility] [place] [facility] [address] [id number] [place] [address]- 9668 Sep, [facility] [place] [facility] [address] [id number] [place] [address]- 2130 Sep, [facility] [place] [facility] [address] [facility] [id number] [place] [address]- 0288 Aug, [facility] [place] [facility] [address] [id number] [address]- 5811 Aug, [facility] [place] [facility] [address] [id number] [address]- 8348 Aug, [facility] [place] [facility] [address] [id number] [place] [address]- 7915 Aug, [facility] [place] [facility] [address] [id number] [address]- 7830 Aug, [facility] [place] [facility] [address] [facility] [id number] [place] [address]- 7855 Jul, [facility] [place] [facility] [address] [id number] [place] [address]- 1265 Apr, [facility] [address] [id number] [place] [address]- 3774 February, [facility] [place] [facility] [address] [id number] [place] [address]- 3595 Jan, [facility] [address] [id number] [place] [address]- 2884 Jan, [facility] [place] [facility] [address] [id number] [place] [address]- 1231 Dec, [facility] [address] [id number] [place] [address]- 6780 Dec, [facility] [place] [facility] [address] [id number] [place] [address]- 9707 Oct, [facility] [address] [id number] [place] [address]- 8242 Oct, [facility] [place] [facility] [address] [id number] [place] [address]- 1014 February, [facility] [place] [facility] [address] [id number] [place] [address]- 2336 Sep, [facility] [place] [facility] [address] [facility] [id number] [place] [address]- 3485 Jul, [facility] [place] [facility] [address] [id number] [place] [address]- 9494 13 Jul, 2010 [facility] [place] [facility] [address] [id number] [place] [address]- 2110 13 Jul, 2010 [facility] [place] [facility] [address] [id number] [place] [address]- 2128 17 Jun, 2010 [facility] [place] [facility] [address] [id number] [place] [address]- 1384 15 Sep, 2009 [facility] [place] [facility] [address] [id number] [place] [address]- 0359 11 Sep, 2009 [facility] [place] [address] [facility] [id number] [place] [address]- 4036 Sep, [facility] [place] [address] [facility] [id number], [place] [address]- 4316 Jun, [facility] [place] [address] [facility] [id number], [place] [address]- 9455 Dec, IMMUNIZATIONS No Known Immunizations SOCIAL HISTORY Never Assessed REASON FOR VISIT PLAN OF CARE VITAL SIGNS MEDICATIONS Medication Instructions Dosage Frequency Start Date End Date Duration Status NovoFine 30G X 8 MM subcutaneously use with insulin use to inject insulin Nov, Active RESULTS No Results PROCEDURES No Known procedures INSTRUCTIONS MEDICATIONS ADMINISTERED No Known Medications MEDICAL (GENERAL) HISTORY Type Description Date Medical History diabetes type 1 Medical History hypertension Medical History asthma Medical History depression Medical History Diabetic Macular Edema Surgical History 1985, 1988, 1991, 1994 Hospitalization History multiple
--- OUTSIDE RECORDS SUMMARY | 2018-08-18 00:01 | XMS REPORT ---
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 280704347 Problem Unspecified staphylococcus as the cause of diseases classified elsewhere B95.8 Active 67323715 Problem Local infection of the skin and subcutaneous tissue, unspecified L08.9 Active 435395486 Problem Anxiety state, unspecified F41.1 Active 433056479 Problem Essential hypertension I10 Active 03326117 Problem Migraine without status migrainosus, not intractable, unspecified migraine type G43.909 Active 40335162 Problem Depressive disorder, not elsewhere classified F32.9 Active 89108475 ALLERGIES No Information ENCOUNTERS Encounter Location Date Diagnosis [place] [id number] [place] [address]153- [address] Mar, Anxiety state, unspecified F41.1 [place] [address] [address] Mar, Local infection of the skin and subcutaneous tissue, unspecified L08.9 ; Unspecified staphylococcus as the cause of diseases classified elsewhere B95.8 ; Type 2 diabetes mellitus with diabetic polyneuropathy E11.42 and MCC current use of insulin Z79.4 [place] [id number] [place] [address] 86447- 7073 Mar, [facility] [address] [address] February, Type 2 diabetes mellitus with diabetic polyneuropathy E11.42 ; 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 ; Essential hypertension I10 ; Anxiety state, unspecified F41.1 ; Depressive disorder, not elsewhere classified F32.9 and Dysuria R30.0 [place] [address] [address] Jan, Type 2 diabetes mellitus with diabetic polyneuropathy E11.42 [place] [address] [address]507- 4753 Jan, Type 2 diabetes mellitus with diabetic polyneuropathy E11.42 [place] [address] [address]19- 6601 Jan, [facility] [place] [address] [address] Dec, Migraine without status migrainosus, not intractable, unspecified migraine type G43.909 [place] [address] 6[address]- 0925 Dec, Type 2 diabetes mellitus with diabetic polyneuropathy E11.42 ; MCC current use of insulin Z79.4 ; Dog bite, subsequent encounter W54.0XXD and Essential hypertension I10 [facility] [place] [address] [address] Dec, Dog bite, initial encounter W54.0XXA [place] [address] 75404- 0745 Dec, [place] [address] 16229- 5767 Nov, [place] [address] 42595- 0706 Oct, [facility] [place] [address] [address] Oct, Fissure in skin of foot R23.4 [place] [address] 43545- 2103 Oct, [place] [id number] [place] [address] 66560- 7162 Oct, [place] [address] [place] [id number] [place] [address] 54115- 6628 Oct, [place] [address] [place] [id number] [place] [address] 68045- 4105 Oct, Type 2 diabetes mellitus with diabetic polyneuropathy E11.42 [place] [address] [place] [id number] [place] [address] 15942- 9427 Oct, Anxiety state, unspecified F41.1 and Depressive disorder, not elsewhere classified F32.9 [place] [address] [place] [id number] [place] [address] 30299- 6974 Oct, [place] [address] [place] [id number] [place] [address] 67397- 2468 Oct, [place] [address] [place] [id number] [place] [address] 70521- 5955 Sep, Essential hypertension I10 [place] [address] [place] [id number] [place] [address] 20625- 5870 14 Sep, 2017 [place] [address] [place] [id number] [place] [address] 73640- 1688 Sep, Type 2 diabetes mellitus with diabetic polyneuropathy E11.42 and Neuropathic ulcer of foot, unspecified laterality, unspecified ulcer stage L97.509 [place] [address] [place] [id number] [place] [address] 47591- 4921 Sep, Neuropathic ulcer of foot, unspecified laterality, unspecified ulcer stage L97.509 and Acute vaginitis N76.0 [place] [id number] [place] [address] 45793- 9887 12 Sep, 2017 Type 2 diabetes mellitus with diabetic polyneuropathy E11.42 ; 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 ; Essential hypertension I10 ; 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 ; Reactive depression F32.9 ; Acute vaginitis N76.0 and Mild intermittent asthma without complication J45.20 [facility] [address] [address] 36[address] 17 Jul, 2017 [facility] [address] [address] 14 Jun, 2017 [facility] [address] [place] [id number] [place] [address] 34003- 0747 May, [facility] [address] [place] [id number] [place] [address] 57128 -7509 May, Cellulitis L03.90 [facility] [address] [place] [id number] [place] [address] 49903- 8885 Mar, [facility] [address] [place] [id number] [place] [address] 60980- 4620 Jan, [facility] [address] [place] [id number] [place] [address] 30252- 0786 Jan, [facility] [id number] [place] [address] 41651- 9785 Sep, [facility] [address] [place] [id number] [place] [address] 90461- 8194 Sep, [facility] [id number] [place] [address] 06683- 8104 Apr, [facility] [id number] [place] [address] 24320- 8845 Apr, [facility] [address] [place] [id number] [place] [address] 58907- 0506 Apr, [facility] [address] [place] [id number] [place] [address] 41211- 8267 Apr, [facility] [id number] [place] [address] 895623- 6329 Apr, [facility] [address] [place] [id number] [place] [address] 38736- 1343 Apr, [facility] [place] [facility] [address] [id number] [place] [address]- 3348 Apr, [facility] [place] [facility] [address] [id number] [place] [address]- 4283 Apr, [facility] [place] [facility] [address] [id number] [place] [address]- 9322 Mar, [facility] [place] [facility] [address] [id number] [place] [address]- 3403 Mar, [facility] [place] [facility] [address] [id number] [place] [address]- 1863 Mar, [facility] [place] [facility] [address] [id number] [place] [address]- 3626 Mar, [facility] [place] [facility] [address] [id number] [place] [address]- 6938 Mar, [facility] [place] [facility] [address] [id number] [address] 1885 Mar, [facility] [place] [facility] [address] [id number] [place] [address]- 9431 Mar, [facility] [place] [facility] [address] [id number] [place] [address]- 4568 Mar, [facility] [place] [facility] [address] [id number] [address]- 0957 18 Mar, 2014 [facility] [place] [facility] [address] [id number] [address]- 5353 18 Mar, 2014 [facility] [place] [facility] [address] [id number] [place] [address]- 2010 16 Mar, 2014 [facility] [place] [facility] [address] [id number] [address]- 2189 15 Mar, 2014 [facility] [place] [facility] [address] [id number] [place] [address]- 0817 13 Mar, 2014 [facility] [place] [facility] [address] [id number] [place] [address]- 5496 13 Mar, 2014 [facility] [place] [facility] [address] [id number] [place] [address]- 1511 Mar, [facility] [place] [facility] [address] [id number] [place] [address]- 3944 Mar, [facility] [place] [facility] [address] [id number] [place] [address]- 8660 Mar, [facility] [place] [facility] [address] [id number] [place] [address]- 3804 Mar, [facility] [place] [facility] [address] [id number] [place] [address]- 5777 Mar, [facility] [place] [facility] [address] [id number] [place] [address]- 4405 February, [facility] [place] [facility] [address] [id number] [place] [address]- 4388 February, [facility] [place] [facility] [address] [id number] [place] [address]- 0365 24 Jan, 2014 [facility] [place] [facility] [address] [id number] [place] [address]- 0037 24 Jan, 2014 [facility] [place] [facility] [address] [id number] [place] [address]- 9149 Jan, [facility] [place] [facility] [address] [id number] [place] [address]- 4433 18 Jan, 2014 [facility] [place] [facility] [address] [id number] [place] [address]- 5156 17 Jan, 2014 [facility] [place] [facility] [address] [id number] [place] [address]- 7681 17 Jan, 2014 [facility] [place] [facility] [address] [id number] [place] [address]- 4212 14 Jan, 2014 [facility] [place] [facility] [address] [id number] [place] [address]- 8950 Jan, [facility] [place] [facility] [address] [id number] [place] [address]- 0898 Jan, [facility] [place] [facility] [address] [id number] [place] [address]- 5657 Jan, [facility] [place] [facility] [address] [id number] [place] [address]- 2077 Dec, [facility] [place] [facility] [address] [id number] [place] [address]- 1202 Dec, [facility] [place] [facility] [address] [id number] [place] [address]- 6966 Dec, [facility] [place] [facility] [address] [id number] [place] [address]- 8534 Dec, [facility] [place] [facility] [address] [id number] [place] [address]- 7562 Dec, [facility] [place] [facility] [address] [id number] [place] [address]- 2244 Dec, [facility] [place] [facility] [address] [id number] [place] [address]- 3578 Dec, [facility] [place] [facility] [address] [id number] [place] [address]- 2446 Dec, [facility] [place] [facility] [address] [id number] [place] [address]- 0280 Dec, [facility] [place] [facility] [address] [id number] [place] [address]- 4039 Dec, [facility] [place] [facility] [address] [id number] [place] [address]- 6650 Oct, [facility] [place] [facility] [address] [id number] [place] [address]- 9526 Oct, [facility] [place] [facility] [address] [id number] [place] [address]- 9336 Jul, [facility] [place] [facility] [address] [id number] [address]- 5341 Jul, [facility] [address] [id number] [place] [address]- 6327 Jul, [facility] [address] [id number] [address]- 9552 27 Jun, 2013 [facility] [address] [id number] [place] [address]- 4995 Jun, [facility] [address] [id number] [place] [address]- 9737 Jun, [facility] [address] [id number] [place] [address]- 7614 24 Jun, 2013 [facility] [address] [id number] [place] [address]- 5176 Apr, [facility] [address] [facility] [id number] [place] [address]- 5936 February, [facility] [address] [id number] [place] [address]- 4257 Nov, [facility] [address] [facility] [id number] [place] [address]- 2681 Nov, [facility] [address] [facility] [id number] [place] [address]- 3989 Nov, [facility] [address] [facility] [id number] [address]- 2440 Sep, [facility] [address] [id number] [address]- 4650 Sep, [facility] [place] [facility] [address] [id number] [place] [address]- 0921 Sep, [facility] [place] [facility] [address] [id number] [place] [address]- 8525 Sep, [facility] [address] [facility] [id number] [address]- 1489 Sep, [facility] [place] [facility] [address] [id number] [place] [address]- 7149 Sep, [facility] [place] [facility] [address] [id number] [place] [address]- 3286 Sep, [facility] [place] [facility] [address] [id number] [place] [address]- 8256 Sep, [facility] [place] [facility] [address] [id number] [place] [address]- 0466 Sep, [facility] [place] [facility] [address] [id number] [place] [address]- 7745 Sep, [facility] [place] [facility] [address] [id number] [place] [address]- 7592 Aug, [facility] [place] [facility] [address] [id number] [place] 4166 Aug, [facility] [place] [facility] [address] [id number] [place] [address]- 8669 Aug, [facility] [place] [facility] [address] [id number] [place] [address]- 3575 Aug, [facility] [place] [facility] [address] [id number] [place] [address]- 8487 Aug, [facility] [place] [facility] [address] [id number] [place] [address]- 6589 Jul, [facility] [place] [facility] [address] [id number] [place] [address]- 9394 Apr, [facility] [place] [facility] [address] [id number] [place] [address]- 0864 February, [facility] [place] [facility] [address] [id number] [place] [address]- 0718 Jan, [facility] [place] [facility] [address] [id number] [place] [address]- 3911 Jan, [facility] [place] [facility] [address] [id number] [place] [address]- 5703 14 Dec, 2011 [facility] [address] [place] [id number] [address]- 8821 Dec, [facility] [address], [place] [address]- 0636 Oct, [facility] [address], [place] [address]- 5346 Oct, [facility] [address] [address]- 8960 February, [facility] [address], [place] [address]- 1875 Sep, [facility] [id number] [place] [address] 07929- 4878 Jul, [facility] [address] [address]- 9826 Jul, [facility] [address], [place] [address]- 6920 Jul, [facility] [address], [place] [address]- 2892 Jun, [facility] [address], [place] [address]- 3396 15 Sep, 2009 [facility] [address] [address]- 5813 Sep, [facility] [address] [place] [id number] [address]- 0777 Sep, [facility] [address] [place] [id number] [address]- 5492 15 Jun, 2009 [facility] [address] [address]- 8035 10 Dec, 2008 IMMUNIZATIONS No Known Immunizations [...]
--- OUTSIDE RECORDS SUMMARY | 2018-08-18 00:02 | XMS REPORT ---
Author Author SCOTT Wade [facility] Address [address] [place] [address] Care Team Providers Care Foreign Law Consultant Name Role Phone georgeMARIA INESQIANA SCOTT Unavailable PROBLEMS Type Condition ICD9-CM Code HCC34-ON Code Onset Dates Condition Status SNOMED Code Problem correction current use of insulin Z79.4 Active 368838644 Problem Mild intermittent asthma without complication J45.20 Active 434200758 Problem Migraine without status migrainosus, not intractable, unspecified migraine type G43.909 Active 66711328 Problem Depressive disorder, not elsewhere classified F32.9 Active 75355657 Problem Type 2 diabetes mellitus with diabetic polyneuropathy E11.42 Active 35606197 Problem 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 Active 123225828 Problem Anxiety state, unspecified F41.1 Active 846720091 Problem Essential hypertension I10 Active 44579906 ALLERGIES Substance Reaction Event Type Date Status Metformin HCl Unknown Drug Allergy May, Active Ketorolac Tromethamine nausea Drug Allergy May, Active Hydrocodone Bitartrate Unknown Drug Allergy May, Active Biaxin Unknown Drug Allergy May, Active ENCOUNTERS Encounter Location Date Diagnosis [facility] [id number] [place] [address] 48566- 9556 Jan, [facility] [id number] [place] [address] 37948- 5476 Jan, Type 2 diabetes mellitus with diabetic polyneuropathy E11.42 [facility] [id number] [place] [address] 30408- 2824 Jan, [facility] [id number] [place] [address] 16165 -9575 Dec, Migraine without status migrainosus, not intractable, unspecified migraine type G43.909 [facility] [id number] [place] [address] 65019- 4187 Dec, Type 2 diabetes mellitus with diabetic polyneuropathy E11.42 ; rn long term care current use of insulin Z79.4 ; Dog bite, subsequent encounter W54.0XXD and Essential hypertension I10 [facility] [id number] [place] [address] 93352 -8441 Dec, Dog bite, initial encounter W54.0XXA [facility] [id number] [place] [address] 70667- 5939 Dec, [facility] [id number] [place] [address] 48054- 7566 Nov, [facility] [id number] [place] [address] 37879- 2887 Oct, [facility] [id number] [place] [address] 11908 -6102 Oct, Fissure in skin of foot R23.4 [facility] [id number] [place] [address] 24191- 3112 Oct, [facility] [id number] [place] [address] 01532- 9823 Oct, [facility] [id number] [place] [address] 87081- 6336 Oct, [facility] [id number] [place] [address] 85126- 2749 Oct, Type 2 diabetes mellitus with diabetic polyneuropathy E11.42 [facility] [id number] [place] [address] 96220- 2025 Oct, Anxiety state, unspecified F41.1 and Depressive disorder, not elsewhere classified F32.9 [facility] [id number] [place] [address] 92424- 8675 Oct, [facility] [id number] [place] [address] 82931- 1416 Oct, [facility] [id number] [place] [address] 08304- 3151 Sep, Essential hypertension I10 [facility] [id number] [place] [address] 22290- 2088 14 Sep, 2017 [facility] [id number] [place] [address] 11511- 5548 Sep, Type 2 diabetes mellitus with diabetic polyneuropathy E11.42 and Neuropathic ulcer of foot, unspecified laterality, unspecified ulcer stage L97.509 [facility] [id number] [place] [address] 42490- 2198 Sep, Neuropathic ulcer of foot, unspecified laterality, unspecified ulcer stage L97.509 and Acute vaginitis N76.0 [place] [facility] [id number] [place] [address] 74112- 5801 12 Sep, 2017 Type 2 diabetes mellitus with diabetic polyneuropathy E11.42 ; rn long term care current use of insulin Z79.4 ; Essential hypertension I10 ; 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 ; Reactive depression F32.9 ; Acute vaginitis N76.0 and Mild intermittent asthma without complication J45.20 [facility] [id number] [place] [address] 68291- 7941 Jul, [facility] [id number] [place] [address] 56323 -0822 Jun, [facility] [id number] [place] [address] 98503- 6217 May, [facility] [id number] [place] [address] 04081 -5396 May, Cellulitis L03.90 [facility] [id number] [place] [address] 44379- 7546 Mar, [facility] [id number] [place] [address] 32946- 5036 Jan, [facility] [place] [facility] [address] [id number] [place] [address]- 0226 Jan, [facility] [place] [facility] [address] [id number] [place] 7499 Sep, [facility] [place] [facility] [address] [id number] [place] [address]- 9252 Sep, [facility] [place] [facility] [address] [id number] [place] [address]- 7265 Apr, [facility] [place] [facility] [address] [id number] [place] [address]- 7770 Apr, [facility] [place] [facility] [address] [id number] [place] [address]- 7151 Apr, [facility] [place] [facility] [address] [id number] [place] [address]- 1567 Apr, [facility] [place] [facility] [address] [id number] [place] [address]- 9688 Apr, [facility] [place] [facility] [address] [id number] [place] [address]- 8421 Apr, [facility] [place] [facility] [address] [id number] [place] [address]- 5597 Apr, [facility] [place] [facility] [address] [id number] [place] [address]- 0020 Apr, [facility] [place] [facility] [address] [id number] [place] [address]- 3607 Mar, [facility] [place] [facility] [address] [id number] [place] [address]- 7647 Mar, [facility] [place] [facility] [address] [id number] [place] [address]- 6914 Mar, [facility] [place] [facility] [address] [id number] [place] [address]- 7639 Mar, [facility] [place] [facility] [address] [id number] [place] [address]- 0152 23 Mar, 2014 [facility] [place] [facility] [address] [id number] [place] [address]- 3988 20 Mar, 2014 [facility] [place] [facility] [address] [id number] [place] [address]- 2409 19 Mar, 2014 [facility] [place] [facility] [address] [id number] [place] [address]- 1114 19 Mar, 2014 [facility] [place] [facility] [address] [id number] [place] [address]- 3130 18 Mar, 2014 [facility] [place] [facility] [address] [id number] [place] [address]- 3889 18 Mar, 2014 [facility] [place] [facility] [address] [id number] [place] [address]- 6393 16 Mar, 2014 [facility] [place] [facility] [address] [id number] [place] [address]- 5977 15 Mar, 2014 [facility] [place] [facility] [address] [id number] [place] [address]- 2903 13 Mar, 2014 [facility] [place] [facility] [address] [id number] [place] [address]- 2910 Mar, [facility] [place] [facility] [address] [id number] [place] [address]- 1034 Mar, [facility] [place] [facility] [address] [id number] [place] [address]- 9648 Mar, [facility] [place] [facility] [address] [id number] [place] [address]- 7282 Mar, [facility] [place] [facility] [address] [id number] [place] [address]- 6412 Mar, [facility] [place] [facility] [address] [id number] [place] [address]- 0254 Mar, [facility] [place] [facility] [address] [id number] [place] [address]- 6146 February, [facility] [place] [facility] [address] [id number] [place] [address]- 0315 February, [facility] [address] [id number] [place] [address]- 8971 24 Jan, 2014 [facility] [place] [facility] [address] [id number] [place] [address]- 8540 24 Jan, 2014 [facility] [address] [id number] [place] [address]- 9037 Jan, [facility] [place] [facility] [address] [id number] [place] [address]- 5514 18 Jan, 2014 [facility] [address] [id number] [place] [address]- 6101 Jan, [facility] [place] [facility] [address] [id number] [place] [address]- 2613 Jan, [facility] [place] [facility] [address] [id number] [place] [address]- 1541 14 Jan, 2014 [facility] [address] [id number] [place] [address]- 1153 11 Jan, 2014 [facility] [place] [facility] [address] [id number] [place] [address]- 2953 10 Jan, 2014 [facility] [address] [id number] [place] [address]- 6036 10 Jan, 2014 [facility] [place] [facility] [address] [id number] [place] [address]- 5491 17 Dec, 2013 [facility] [place] [facility] [address] [id number] [place] [address]- 4705 17 Dec, 2013 [facility] [place] [facility] [address] [id number] [place] 2709 11 Dec, 2013 [facility] [place] [facility] [address] [id number] [place] [address]- 8627 11 Dec, 2013 [facility] [place] [facility] [address] [id number] [place] [address]- 5946 Dec, [facility] [place] [facility] [address] [id number] [place] [address]- 1860 10 Dec, 2013 [facility] [place] [facility] [address] [id number] [place] [address]- 1688 Dec, [facility] [place] [facility] [address] [id number] [place] [address]- 8400 Dec, [facility] [place] [facility] [address] [id number] [place] [address]- 5533 Dec, [facility] [place] [facility] [address] [id number] [place] [address]- 8017 Dec, [facility] [place] [facility] [address] [id number] [place] [address]- 0401 Oct, [facility] [place] [facility] [address] [id number] [place] [address]- 6773 Oct, [facility] [place] [facility] [address] [id number] [place] [address]- 6759 Jul, [facility] [place] [facility] [address] [id number] [place] [address]- 9684 Jul, [facility] [place] [facility] [address] [id number] [place] [address]- 8836 Jul, [facility] [place] [facility] [address] [id number] [place] [address]- 7987 27 Jun, 2013 [facility] [place] [facility] [address] [id number] [place] [address]- 6580 26 Jun, 2013 [facility] [place] [facility] [address] [id number] [place] [address]- 3796 25 Jun, 2013 [facility] [place] [facility] [address] [id number] [place] [address]- 5791 24 Jun, 2013 [facility] [place] [facility] [address] [id number] [place] 3542 17 Apr, 2013 [facility] [place] [facility] [address] [id number] [place] [address]- 7410 February, [facility] [address] [id number] [place] [address]- 4676 Nov, [facility] [place] [facility] [address] [id number] [place] [address]- 7436 Nov, [facility] [address] [id number] [place] [address]- 7796 14 Nov, 2012 [facility] [place] [facility] [address] [id number] [place] [address]- 2391 Sep, [facility] [address] [id number] [place] [address]- 0041 Sep, [facility] [place] [facility] [address] [id number] [place] [address]- 1756 Sep, [facility] [address] [id number] [place] [address]- 1379 Sep, [facility] [place] [facility] [address] [id number] [place] [address]- 3686 Sep, [facility] [place] [facility] [address] [id number] [place] [address]- 7422 Sep, [facility] [place] [facility] [address] [facility] [id number] [place] [address]- 9004 Sep, [facility] [place] [facility] [address] [id number] [place] [address]- 2706 07 Sep, 2012 [facility] [place] [facility] [address] [id number] [place] [address]- 8799 06 Sep, 2012 [facility] [place] [facility] [address] [id number] [place] [address]- 6176 Sep, [facility] [place] [facility] [address] [id number] [place] [address]- 1266 Aug, [facility] [place] [facility] [address] [id number] [place] [address]- 9901 Aug, [facility] [place] [facility] [address] [id number] [place] [address]- 9920 Aug, [facility] [place] [facility] [address] [id number] [place] [address]- 2173 Aug, [facility] [place] [facility] [address] [id number] [place] [address]- 2224 Aug, [facility] [id number] [place] [address], [place] [address]- 3770 Jul, [facility] [address] [id number] [place] [address]- 8560 Apr, [facility] [place] [facility] [address] [id number] [place] [address]- 0196 February, [facility] [address] [id number] [place] [address]- 1278 Jan, [facility] [address] [id number] [place] [address]- 2448 Jan, [facility] [address] [id number] [place] [address]- 3379 Dec, [facility] [address] [id number] [place] [address]- 0438 Dec, [facility] [place] [facility] [address] [id number] [place] [address]- 9531 Oct, [facility] [address] [id number] [place] [address]- 8961 Oct, [facility] [place] [facility] [address] [id number] [place] [address]- 1527 February, [facility] [place] [facility] [address] [id number] [place] [address]- 5370 Sep, [facility] [place] [facility] [address] [id number] [place] [address]- 9524 Jul, [facility] [place] [facility] [address] [id number], [place] [address] 2546 Jul, [facility] [address] [facility] [id number], [place] [address] 2546 Jul, [facility] [address] [facility] [id number], [place] [address] 2546 17 Jun, 2010 [facility] [address] [facility] [id number], [place] [address]- 7196 Sep, [facility] [address] [facility] [id number], [place] [address] 2546 Sep, [facility] [address] [facility] [id number], [place] [address] 2546 Sep, [facility] [address] [id number], [place] [address]- 7306 Jun, [facility] [address] [facility] [id number], [place] [address]- 9886 Dec, IMMUNIZATIONS No Known Immunizations SOCIAL HISTORY Never Assessed REASON FOR VISIT took a nap yesterday and woke up and reports there was blood on her right great toe. denies any injury. [email or web address] PLAN OF CARE Activity Details Follow Up prn Reason: VITAL SIGNS Height 64 in 2017-06-05 Weight 230.4 lbs 2017-06-05 Temperature 98.2 degrees Fahrenheit 2017-06-05 Heart Rate 80 bpm 2017-06-05 Respiratory Rate 20 2017-06-05 BMI 39.54 kg/m2 2017-06-05 Blood pressure systolic 138 mmHg 2017-06-05 Blood pressure diastolic 90 mmHg 2017-06-05 MEDICATIONS Medication Instructions Dosage Frequency Start Date End Date Duration Status Bactrim DS 800-160 MG Orally BID 1 tablet 12h 24 May, 2017 3 Jun, 2017 10 day(s) Active NovoLog Flexpen 100 UNIT/ML Active Ativan 2 MG Orally Once a day 1 tablet at bedtime as needed 24h Active Celexa 40 MG Orally Once a day 0.5 tablet 24h Active Lisinopril 20 MG Orally Once a day 1 tablet 24h Active Metoprolol Succinate ER 25 MG Orally Once a day 1 tablet 24h Active RESULTS Name Result Date Reference Range CULTURE, AEROBIC 2017-06-05 Aerobic Bacterial Culture Final report Result 1 Pseudomonas luteola Result 2 Enterococcus species Result 3 Mixed skin yudi Antimicrobial Susceptibility PROCEDURES Procedure Date Ordered Result Body Site CULTURE, BACTERIA, OTHER Jun 05, 2017 INSTRUCTIONS MEDICATIONS ADMINISTERED No Known Medications MEDICAL (GENERAL) HISTORY Type Description Date Medical History diabetes type 1 Medical History hypertension Medical History asthma Medical History depression Surgical History 1985, 1988, 1991, 1994 Hospitalization History multiple
--- OUTSIDE RECORDS SUMMARY | 2018-08-18 00:02 | XMS REPORT ---
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 587386605 Problem Unspecified staphylococcus as the cause of diseases classified elsewhere B95.8 Active 89638004 Problem Local infection of the skin and subcutaneous tissue, unspecified L08.9 Active 745593708 Problem Anxiety state, unspecified F41.1 Active 428244146 Problem Essential hypertension I10 Active 44543527 Problem Migraine without status migrainosus, not intractable, unspecified migraine type G43.909 Active 25578002 Problem Depressive disorder, not elsewhere classified F32.9 Active 12108826 ALLERGIES No Information ENCOUNTERS Encounter Location Date Diagnosis [place] [id number] [address] Mar, Local infection of the skin and subcutaneous tissue, unspecified L08.9 ; Unspecified staphylococcus as the cause of diseases classified elsewhere B95.8 ; Type 2 diabetes 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 and FCI current use of insulin Z79.4 [facility] [address] [facility] [id number] [address] Mar, [facility] [id number] [place] [address]- 9561 February, Type 2 diabetes mellitus with diabetic polyneuropathy E11.42 ; 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 ; Essential hypertension I10 ; Anxiety state, unspecified F41.1 ; Depressive disorder, not elsewhere classified F32.9 and Dysuria R30.0 [facility] [id number] [place] [address] 9[address]88- 4172 Jan, Type 2 diabetes mellitus with diabetic polyneuropathy E11.42 [facility] [id number] [place] [address] 34246- 6041 Jan, Type 2 diabetes mellitus with diabetic polyneuropathy E11.42 [facility] [address] [address] Jan, [facility] [address] [address] Dec, Migraine without status migrainosus, not intractable, unspecified migraine type G43.909 [facility] [id number] [place] [address] 93282- 2380 Dec, Type 2 diabetes mellitus with diabetic polyneuropathy E11.42 ; FCI current use of insulin Z79.4 ; Dog bite, subsequent encounter W54.0XXD and Essential hypertension I10 [facility] [id number] [place] [address]70 Dec, Dog bite, initial encounter W54.0XXA [facility] [id number] [place] [address] 11200- 6073 Dec, [facility] [id number] [place] [address] 74291- 2442 Nov, [facility] [id number] [place] [address] 41803- 2910 Oct, [facility] [id number] [place] [address]9747 Oct, Fissure in skin of foot R23.4 [facility] [id number] [place] [address] 07703- 3672 Oct, [facility] [address] [address] Oct, [place] [id number] [place] [address] 25794- 0721 Oct, [facility] [id number] [place] [address] 07974- 5513 Oct, Type 2 diabetes mellitus with diabetic polyneuropathy E11.42 [facility] [id number] [place] [address] 36527- 8070 Oct, Anxiety state, unspecified F41.1 and Depressive disorder, not elsewhere classified F32.9 [facility] [id number] [place] [address] 58107- 7824 Oct, [facility] [id number] [place] [address] 28787- 9242 Oct, [facility] [id number] [place] [address] 57939- 5455 Sep, Essential hypertension I10 [facility] [id number] [place] [address] 81133- 7220 14 Sep, 2017 [facility] [id number] [place] [address] 74682- 5707 13 Sep, 2017 Type 2 diabetes mellitus with diabetic polyneuropathy E11.42 and Neuropathic ulcer of foot, unspecified laterality, unspecified ulcer stage L97.509 [facility] [place] [id number] [place] [address] 96010- 8944 13 Sep, 2017 Neuropathic ulcer of foot, unspecified laterality, unspecified ulcer stage L97.509 and Acute vaginitis N76.0 [facility] [id number] [place] [address] 78145- 0540 12 Sep, 2017 Type 2 diabetes mellitus with diabetic polyneuropathy E11.42 ; FCI current use of insulin Z79.4 ; Essential hypertension I10 ; 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 ; Reactive depression F32.9 ; Acute vaginitis N76.0 and Mild intermittent asthma without complication J45.20 [facility] [id number] [place] [address] 90870- 0649 Jul, [facility] [address] [id number] [place] [address] Jun, [facility] [address] [id number] [place] [address] 4[address] May, [facility] [address] [facility] [id number] [place] [address] May, Cellulitis L03.90 [facility] [address] [id number] [place] [address] 0819 Mar, [facility] [address] [id number] [place] [address]- 8875 Jan, [facility] [address] [facility] [id number] [place] [address]- 8103 Jan, [facility] [address] [facility] [id number] [place] [address]- 1750 Sep, [facility] [address] [facility] [id number] [place] [address]- 7996 Sep, [facility] [address] [facility] [id number] [place] [address]- 4926 Apr, [facility] [address] [facility] [id number] [place] [address]- 0074 Apr, [facility] [address] [facility] [id number] [place] [address]- 8180 Apr, [facility] [address] [id number] [place] [address]- 1097 Apr, [facility] [address] [facility] [id number] [place] [address] Apr, [facility] [address] [facility] [id number] [place] [address]- 9361 Apr, [facility] [address] [facility] [id number] [place] [address] Apr, [facility] [place] [facility] [address] [id number] [place] [address]- 2191 Apr, [facility] [place] [facility] [address] [id number] [place] [address]- 4584 Mar, [facility] [place] [facility] [address] [id number] [place] [address]- 9639 Mar, [facility] [place] [facility] [address] [id number] [place] [address]- 1035 Mar, [facility] [place] [facility] [address] [id number] [place] [address]- 2288 Mar, [facility] [place] [facility] [address] [id number] [place] [address]- 7678 Mar, [facility] [place] [facility] [address] [id number] [place] [address]- 7823 Mar, [facility] [place] [facility] [address] [id number] [place] [address]- 9107 Mar, [facility] [place] [facility] [address] [id number] [place] [address]- 6051 Mar, [facility] [place] [facility] [address] [id number] [place] [address]- 8600 Mar, [facility] [place] [facility] [address] [id number] [place] [address]- 1765 18 Mar, 2014 [facility] [place] [facility] [address] [id number] [place] [address]- 4425 16 Mar, 2014 [facility] [place] [facility] [address] [id number] [place] [address]- 7700 15 Mar, 2014 [facility] [place] [facility] [address] [id number] [place] [address]- 3691 13 Mar, 2014 [facility] [place] [facility] [address] [id number] [place] [address]- 4490 13 Mar, 2014 [facility] [place] [facility] [address] [id number] [place] [address]- 1224 Mar, [facility] [place] [facility] [address] [id number] [place] [address]- 4841 Mar, [facility] [place] [facility] [address] [id number] [place] [address]- 8487 Mar, [facility] [place] [facility] [address] [id number] [place] [address]- 2763 Mar, [facility] [place] [facility] [address] [id number] [place] [address]- 6606 Mar, [facility] [place] [facility] [address] [id number] [place] [address]- 3874 February, [facility] [place] [facility] [address] [id number] [place] [address]- 9705 February, [facility] [place] [facility] [address] [id number] [place] [address]- 8700 Jan, [facility] [place] [facility] [address] [id number] [place] [address]- 2848 24 Jan, 2014 [facility] [place] [facility] [address] [id number] [place] [address]- 8920 Jan, [facility] [place] [facility] [address] [id number] [place] [address]- 5591 Jan, [facility] [place] [facility] [address] [id number] [place] [address]- 1086 17 Jan, 2014 [facility] [place] [facility] [address] [id number] [place] [address]- 7618 17 Jan, 2014 [facility] [place] [facility] [address] [id number] [place] [address]- 6519 14 Jan, 2014 [facility] [place] [facility] [address] [id number] [place] [address]- 9689 11 Jan, 2014 [facility] [place] [facility] [address] [id number] [place] [address]- 7956 10 Jan, 2014 [facility] [place] [facility] [address] [id number] [place] [address]- 1150 10 Jan, 2014 [facility] [place] [facility] [address] [id number] [place] [address]- 3452 17 Dec, 2013 [facility] [place] [facility] [address] [id number] [place] [address]- 2546 17 Dec, 2013 [facility] [place] [facility] [address] [id number] [place] [address]- 7809 11 Dec, 2013 [facility] [place] [facility] [address] [id number] [place] [address]- 3680 11 Dec, 2013 [facility] [place] [facility] [address] [id number] [place] [address]- 1498 Dec, [facility] [place] [facility] [address] [id number] [place] [address]- 7226 Dec, [facility] [place] [facility] [address] [id number] [place] [address]- 5742 07 Dec, 2013 [facility] [place] [facility] [address] [id number] [place] [address]- 8521 07 Dec, 2013 [facility] [place] [facility] [address] [id number] [place] [address]- 4283 Dec, [facility] [place] [facility] [address] [id number] [place] [address]- 6353 Dec, [facility] [place] [facility] [address] [id number] [place] [address]- 9435 Oct, [facility] [place] [facility] [address] [id number] [place] [address]- 6506 Oct, [facility] [place] [facility] [address] [id number] [place] [address]- 6411 Jul, [facility] [place] [facility] [address] [id number] [place] [address]- 2546 Jul, [facility] [place] [facility] [address] [id number] [place] [address]- 5805 08 Jul, 2013 [facility] [address] [id number] [place] [address]- 8525 27 Jun, 2013 [facility] [address] [id number] [place] [address]- 4329 26 Jun, 2013 [facility] [address] [id number] [place] [address]- 9615 25 Jun, 2013 [facility] [place] [facility] [address] [id number] [place] [address]- 9307 24 Jun, 2013 [facility] [address] [id number] [place] [address]- 3064 Apr, [facility] [place] [facility] [address] [id number] [place] [address]- 0292 February, [facility] [address] [id number] [place] [address]- 4307 Nov, [facility] [address] [id number] [place] [address]- 9945 Nov, [facility] [address] [id number] [place] [address]- 7643 Nov, [facility] [address] [facility] [id number] [place] [address]- 1049 Sep, [facility] [address] [id number] [place] [address]- 2608 Sep, [facility] [place] [facility] [address] [id number] [address]- 1850 18 Sep, 2012 [facility] [place] [facility] [address] [id number] [place] [address]- 1713 Sep, [facility] [place] [facility] [address] [id number] [place] [address]- 0736 Sep, [facility] [place] [facility] [address] [id number] [place] [address]- 0122 Sep, [facility] [place] [facility] [address] [id number] [place] [address]- 9828 07 Sep, 2012 [facility] [address] [id number] [place] [address]- 8264 Sep, [facility] [place] [facility] [address] [id number] [place] [address]- 9076 Sep, [facility] [place] [facility] [address] [id number] [place] [address]- 1336 Sep, [facility] [place] [facility] [address] [id number] [place] [address]- 2618 Aug, [facility] [place] [facility] [address] [id number] [place] [address]- 1258 Aug, [facility] [place] [facility] [address] [id number] [place] [address]- 5694 Aug, [facility] [place] [facility] [address] [id number] [place] [address]- 7658 Aug, [facility] [place] [facility] [address] [id number] [place] [address]- 3109 Aug, [facility] [place] [facility] [address] [id number] [place] [address]- 2904 Jul, [facility] [place] [facility] [address] [id number] [place] [address]- 4795 Apr, [facility] [place] [facility] [address] [id number] [place] [address]- 6403 February, [facility] [place] [facility] [address] [id number] [place] [address]- 9402 Jan, [facility] [place] [facility] [address] [id number] [place] [address]- 8405 Jan, [facility] [place] [facility] [address] [id number] [place] [address]- 4341 Dec, [facility] [place] [facility] [address] [id number] [place] [address]- 1158 Dec, [facility] [address] [facility] [id number], [place] [address] 2546 Oct, [facility] [address] [facility] [id number], [place] [address]- 2546 Oct, [facility] [address] [facility] [id number], [place] [address]- 2546 February, [facility] [address] [facility] [id number], [place] [address]- 2546 Sep, [facility] [address] [facility] [id number], [place] [address] 2546 Jul, [facility] [address] [facility] [id number], [place] [address]- 8906 Jul, [facility] [address] [address] 2546 Jul, [facility] [address] [address] 2546 Jun, [facility] [address] [address]- 4291 Sep, [facility] [address] [address]- 8566 Sep, [facility] [id number] [address] 2546 Sep, [facility] [id number] [address]- 2546 Jun, [facility] [id number] [address] 2546 Dec, IMMUNIZATIONS No Known Immunizations SOCIAL HISTORY Never Assessed REASON FOR VISIT Pals PLAN OF CARE VITAL SIGNS MEDICATIONS Medication Instructions Dosage Frequency Start Date End Date Duration Status Levemir Flexpen 100 unit/mL (3 mL) subcutaneously Once a day 15 UnITS 24h 19 Mar, 2014 Active Lyrica 150 MG Orally Three times a day 1 capsule 8h 13 Sep, 2017 Active Humalog KwikPen 100 unit/mL Subcutaneous 3 times a day inject 15 UnITS by Subcutaneous route as per insulin sliding scale protocol 3 times per day BEFORE MEALS 8h 19 Mar, 2014 Active Ventolin HFA 108 (90 Base) MCG/ACT Inhalation every 6 hrs 2 puffs as needed 6h Sep, Active RESULTS No Results PROCEDURES No Known procedures INSTRUCTIONS MEDICATIONS ADMINISTERED No Known Medications MEDICAL (GENERAL) HISTORY Type Description Date Medical History diabetes type 1 Medical History hypertension Medical History asthma Medical History depression Medical History Diabetic Macular Edema Surgical History 1985, 1988, 1991, 1994 Hospitalization History multiple
--- OUTSIDE RECORDS SUMMARY | 2018-08-18 00:02 | XMS REPORT ---
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 Z79.4 Active 598718801 Problem Unspecified staphylococcus as the cause of diseases classified elsewhere B95.8 Active 08222525 Problem Local infection of the skin and subcutaneous tissue, unspecified L08.9 Active 816572676 Problem Anxiety state, unspecified F41.1 Active 507112482 Problem Essential hypertension I10 Active 29930944 Problem Migraine without status migrainosus, not intractable, unspecified migraine type G43.909 Active 67234089 Problem Depressive disorder, not elsewhere classified F32.9 Active 10701365 ALLERGIES No Information ENCOUNTERS Encounter Location Date Diagnosis [place] [id number] [address] Mar, Local infection of the skin and subcutaneous tissue, unspecified L08.9 ; Unspecified staphylococcus as the cause of diseases classified elsewhere B95.8 ; Type 2 diabetes mellitus with diabetic polyneuropathy E11.42 and skilled nursing current use of insulin Z79.4 [facility] [address] [facility] [id number] [address] Mar, [facility] [id number] [place] [address] February, Type 2 diabetes mellitus with diabetic polyneuropathy E11.42 ; relations liaison current use of insulin Z79.4 ; Essential hypertension I10 ; Anxiety state, unspecified F41.1 ; Depressive disorder, not elsewhere classified F32.9 and Dysuria R30.0 [facility] [id number] [place] [address] 00609- 6258 Jan, Type 2 diabetes mellitus with diabetic polyneuropathy E11.42 [facility] [id number] [place] [address] 59686- 1891 Jan, Type 2 diabetes mellitus with diabetic polyneuropathy E11.42 [place] [address] [address] Jan, [facility] [address] [address] Dec, Migraine without status migrainosus, not intractable, unspecified migraine type G43.909 [place] [id number] [place] [address] 88013- 3000 Dec, Type 2 diabetes mellitus with diabetic polyneuropathy E11.42 ; skilled nursing current use of insulin Z79.4 ; Dog bite, subsequent encounter W54.0XXD and Essential hypertension I10 [facility] [id number] [place] [address]6776 Dec, Dog bite, initial encounter W54.0XXA [place] [id number] [place] [address] 60518- 1018 Dec, [facility] [id number] [place] [address] 37063- 0523 Nov, [facility] [id number] [place] [address] 09885- 1334 Oct, [facility] [id number] [place] [address] Oct, Fissure in skin of foot R23.4 [facility] [id number] [place] [address] 73908- 9568 Oct, [facility] [address] [address]- [address] Oct, [place] [id number] [place] [address] 41925- 0738 Oct, [place] [id number] [place] [address] 30407- 0072 Oct, Type 2 diabetes mellitus with diabetic polyneuropathy E11.42 [place] [id number] [place] [address] 84141- 3713 Oct, Anxiety state, unspecified F41.1 and Depressive disorder, not elsewhere classified F32.9 [place] [id number] [place] [address]31- 3683 Oct, [place] [id number] [place] [address] 02073- 5885 Oct, [place] [id number] [place] [address] 87642- 3271 Sep, Essential hypertension I10 [place] [id number] [place] [address] 74333- 1935 14 Sep, 2017 [place] [id number] [place] [address] 08348- 5794 13 Sep, 2017 Type 2 diabetes mellitus with diabetic polyneuropathy E11.42 and Neuropathic ulcer of foot, unspecified laterality, unspecified ulcer stage L97.509 [place] [id number] [place] [address] 53084- 2350 13 Sep, 2017 Neuropathic ulcer of foot, unspecified laterality, unspecified ulcer stage L97.509 and Acute vaginitis N76.0 [place] [id number] [place] [address] 96656- 0165 12 Sep, 2017 Type 2 diabetes mellitus with diabetic polyneuropathy E11.42 ; skilled nursing current use of insulin Z79.4 ; Essential hypertension I10 ; 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 ; Reactive depression F32.9 ; Acute vaginitis N76.0 and Mild intermittent asthma without complication J45.20 [place] [id number] [place] [address] 69957- 8495 Jul, [facility] [address] [id number] [place] [address] Jun, [facility] [address] [id number] [place] [address] 3930 May, [facility] [address] [facility] [id number] [place] [address] May, Cellulitis L03.90 [facility] [address] [id number] [place] [address]- 4641 Mar, [facility] [address] [id number] [place] [address]- 7378 Jan, [facility] [address] [facility] [id number] [place] [address]- 5138 Jan, [facility] [address] [facility] [id number] [place] [address]- 6614 Sep, [facility] [address] [facility] [id number] [place] [address]- 7718 Sep, [facility] [address] [facility] [id number] [place] [address]- 9228 Apr, [facility] [address] [facility] [id number] [place] [address]- 5300 Apr, [facility] [address] [facility] [id number] [place] [address]- 0666 Apr, [facility] [address] [id number] [place] [address]- 8728 Apr, [facility] [address] [facility] [id number] [place] [address] Apr, [facility] [address] [facility] [id number] [place] [address]- 3692 Apr, [facility] [address] [facility] [id number] [place] [address] Apr, [facility] [place] [facility] [address] [id number] [place] [address]- 3593 Apr, [facility] [place] [facility] [address] [id number] [place] [address]- 9028 Mar, [facility] [place] [facility] [address] [id number] [place] [address]- 7193 Mar, [facility] [place] [facility] [address] [id number] [place] [address]- 0843 Mar, [facility] [place] [facility] [address] [id number] [place] [address]- 1854 Mar, [facility] [place] [facility] [address] [id number] [place] [address]- 6769 Mar, [facility] [place] [facility] [address] [id number] [place] [address]- 5969 Mar, [facility] [place] [facility] [address] [id number] [place] [address]- 1565 Mar, [facility] [place] [facility] [address] [id number] [place] [address]- 4629 Mar, [facility] [place] [facility] [address] [id number] [place] [address]- 3584 Mar, [facility] [place] [facility] [address] [id number] [place] [address]- 4146 18 Mar, 2014 [facility] [place] [facility] [address] [id number] [place] [address]- 9140 16 Mar, 2014 [facility] [place] [facility] [address] [id number] [place] [address]- 1374 15 Mar, 2014 [facility] [place] [facility] [address] [id number] [place] [address]- 4062 13 Mar, 2014 [facility] [place] [facility] [address] [id number] [place] [address]- 7767 13 Mar, 2014 [facility] [place] [facility] [address] [id number] [place] [address]- 0672 Mar, [facility] [place] [facility] [address] [id number] [place] [address]- 4819 Mar, [facility] [place] [facility] [address] [id number] [place] [address]- 5346 Mar, [facility] [place] [facility] [address] [id number] [place] [address]- 6066 Mar, [facility] [place] [facility] [address] [id number] [place] [address]- 3222 Mar, [facility] [place] [facility] [address] [id number] [place] [address]- 2576 February, [facility] [place] [facility] [address] [id number] [place] [address]- 9437 February, [facility] [place] [facility] [address] [id number] [place] [address]- 7809 Jan, [facility] [place] [facility] [address] [id number] [place] [address]- 6482 24 Jan, 2014 [facility] [place] [facility] [address] [id number] [place] [address]- 5637 Jan, [facility] [place] [facility] [address] [id number] [place] [address]- 5778 Jan, [facility] [place] [facility] [address] [id number] [place] [address]- 3585 17 Jan, 2014 [facility] [place] [facility] [address] [id number] [place] [address]- 8449 17 Jan, 2014 [facility] [place] [facility] [address] [id number] [place] [address]- 5483 14 Jan, 2014 [facility] [place] [facility] [address] [id number] [place] [address]- 9043 11 Jan, 2014 [facility] [place] [facility] [address] [id number] [place] [address]- 8517 10 Jan, 2014 [facility] [place] [facility] [address] [id number] [place] [address]- 5220 10 Jan, 2014 [facility] [place] [facility] [address] [id number] [place] [address]- 6417 17 Dec, 2013 [facility] [place] [facility] [address] [id number] [place] [address]- 2546 17 Dec, 2013 [facility] [place] [facility] [address] [id number] [place] [address]- 4091 11 Dec, 2013 [facility] [place] [facility] [address] [id number] [place] [address]- 4164 11 Dec, 2013 [facility] [place] [facility] [address] [id number] [place] [address]- 4524 Dec, [facility] [place] [facility] [address] [id number] [place] [address]- 3237 Dec, [facility] [place] [facility] [address] [id number] [place] [address]- 5287 07 Dec, 2013 [facility] [place] [facility] [address] [id number] [place] [address]- 9342 07 Dec, 2013 [facility] [place] [facility] [address] [id number] [place] [address]- 2452 Dec, [facility] [place] [facility] [address] [id number] [place] [address]- 7574 Dec, [facility] [place] [facility] [address] [id number] [place] [address]- 6039 Oct, [facility] [place] [facility] [address] [id number] [place] [address]- 7736 Oct, [facility] [place] [facility] [address] [id number] [place] [address]- 0595 Jul, [facility] [place] [facility] [address] [id number] [place] [address]- 2546 Jul, [facility] [place] [facility] [address] [id number] [place] [address]- 6315 08 Jul, 2013 [facility] [address] [id number] [place] [address]- 7907 27 Jun, 2013 [facility] [address] [id number] [place] [address]- 2363 26 Jun, 2013 [facility] [address] [id number] [place] [address]- 2172 25 Jun, 2013 [facility] [place] [facility] [address] [id number] [place] [address]- 8661 24 Jun, 2013 [facility] [address] [id number] [place] [address]- 0440 Apr, [facility] [place] [facility] [address] [id number] [place] [address]- 7469 February, [facility] [address] [id number] [place] [address]- 3387 Nov, [facility] [address] [id number] [place] [address]- 9359 Nov, [facility] [address] [id number] [place] [address]- 0402 Nov, [facility] [address] [facility] [id number] [place] [address]- 0068 Sep, [facility] [address] [id number] [place] [address]- 2194 Sep, [facility] [place] [facility] [address] [id number], [place] [address]- 9985 18 Sep, 2012 [facility] [place] [facility] [address] [id number] [place] [address]- 5532 Sep, [facility] [place] [facility] [address] [id number] [place] [address]- 9722 Sep, [facility] [place] [facility] [address] [id number] [place] [address]- 6111 Sep, [facility] [place] [facility] [address] [id number] [place] [address]- 4209 07 Sep, 2012 [facility] [address] [id number] [place] [address]- 6798 Sep, [facility] [place] [facility] [address] [id number] [place] [address]- 0646 Sep, [facility] [place] [facility] [address] [id number] [place] [address]- 9836 Sep, [facility] [place] [facility] [address] [id number] [place] [address]- 3052 Aug, [facility] [place] [facility] [address] [id number] [place] [address]- 5920 Aug, [facility] [place] [facility] [address] [id number] [place] [address]- 8230 Aug, [facility] [place] [facility] [address] [id number] [place] [address]- 4710 Aug, [facility] [place] [facility] [address] [id number] [place] [address]- 7429 Aug, [facility] [place] [facility] [address] [id number] [place] [address]- 2208 Jul, [facility] [place] [facility] [address] [id number] [place] [address]- 1803 Apr, [facility] [place] [facility] [address] [id number] [place] [address]- 3192 February, [facility] [place] [facility] [address] [id number] [place] [address]- 8610 Jan, [facility] [place] [facility] [address] [id number] [place] [address]- 5780 Jan, [facility] [place] [facility] [address] [id number] [place] [address]- 4457 Dec, [facility] [place] [facility] [address] [id number] [place] [address]- 4198 Dec, [facility] [address] [facility] [id number], [place] [address]- 5866 Oct, [facility] [address] [facility] [id number], [place] [address]- 6956 Oct, [facility] [address] [facility] [id number], [place] [address]- 0776 February, [facility] [address] [facility] [id number], [place] [address]- 6246 Sep, [facility] [address] [facility] [id number], [place] [address]- 7675 Jul, [facility] [address] [facility] [id number], [place] [address]- 6476 Jul, [facility] [address] [facility] [id number], [place] [address]- 6890 Jul, [facility] [address] [facility] [id number], [place] [address]- 7726 Jun, [facility] [address] [facility] [id number] 3448 Sep, [facility] [address] [facility] [id number], [place] [address]- 5086 Sep, [facility] [address] [id number] [address]- 9496 Sep, [facility] [address] [facility] [id number], [place] [address]- 5276 Jun, [facility] [address] [facility] [id number], [place] [address]- 8364 Dec, IMMUNIZATIONS No Known Immunizations SOCIAL HISTORY Never Assessed REASON FOR VISIT Medication refill request PLAN OF CARE VITAL SIGNS MEDICATIONS Medication Instructions Dosage Frequency Start Date End Date Duration Status Diflucan 150 MG Orally Once a day 1 tablet 24h 12 Sep, 2017 Active Lisinopril 20 mg Orally Once a [...]
--- OUTSIDE RECORDS SUMMARY | 2018-08-18 00:03 | XMS REPORT ---
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 Active 929197604 Problem Unspecified staphylococcus as the cause of diseases classified elsewhere B95.8 Active 98520412 Problem Local infection of the skin and subcutaneous tissue, unspecified L08.9 Active 021505051 Problem Anxiety state, unspecified F41.1 Active 868198303 Problem Essential hypertension I10 Active 23949771 Problem Migraine without status migrainosus, not intractable, unspecified migraine type G43.909 Active 32051616 Problem Depressive disorder, not elsewhere classified F32.9 Active 69374492 ALLERGIES No Information ENCOUNTERS Encounter Location Date Diagnosis [place] [id number] [place] [address]15- 9[address] Mar, Anxiety state, unspecified F41.1 [place] [address] [address] Mar, Local infection of the skin and subcutaneous tissue, unspecified L08.9 ; Unspecified staphylococcus as the cause of diseases classified elsewhere B95.8 ; Type 2 diabetes mellitus with diabetic polyneuropathy E11.42 and residential current use of insulin Z79.4 [place] [id number] [place] [address] 43496- 0818 Mar, [facility] [address] [address] February, Type 2 diabetes mellitus with diabetic polyneuropathy E11.42 ; 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 ; Essential hypertension I10 ; Anxiety state, unspecified F41.1 ; Depressive disorder, not elsewhere classified F32.9 and Dysuria R30.0 [place] [address] [address] Jan, Type 2 diabetes mellitus with diabetic polyneuropathy E11.42 [place] [address] [address]36- 5973 Jan, Type 2 diabetes mellitus with diabetic polyneuropathy E11.42 [place] [address] [address]- 0[address] Jan, [facility] [place] [address] [address] Dec, Migraine without status migrainosus, not intractable, unspecified migraine type G43.909 [place] [address] [address]- 9[address] Dec, Type 2 diabetes mellitus with diabetic polyneuropathy E11.42 ; residential current use of insulin Z79.4 ; Dog bite, subsequent encounter W54.0XXD and Essential hypertension I10 [facility] [place] [address] [address] Dec, Dog bite, initial encounter W54.0XXA [place] [address] 20663- [address] Dec, [place] [address] 79305- 0683 Nov, [place] [address] 70063- 6959 Oct, [facility] [place] [address] [address] Oct, Fissure in skin of foot R23.4 [place] [address] 46581- 7726 Oct, [place] [id number] [place] [address] 28063- 8551 Oct, [place] [address] [place] [id number] [place] [address] 10895- 4899 Oct, [place] [address] [place] [id number] [place] [address] 93692- 3591 Oct, Type 2 diabetes mellitus with diabetic polyneuropathy E11.42 [place] [address] [place] [id number] [place] [address] 01072- 3009 Oct, Anxiety state, unspecified F41.1 and Depressive disorder, not elsewhere classified F32.9 [place] [address] [place] [id number] [place] [address] 33675- 8281 Oct, [place] [address] [place] [id number] [place] [address] 82180- 1338 Oct, [place] [address] [place] [id number] [place] [address] 85378- 6683 Sep, Essential hypertension I10 [place] [address] [place] [id number] [place] [address] 94359- 4524 14 Sep, 2017 [place] [address] [place] [id number] [place] [address] 73377- 3198 Sep, Type 2 diabetes mellitus with diabetic polyneuropathy E11.42 and Neuropathic ulcer of foot, unspecified laterality, unspecified ulcer stage L97.509 [place] [address] [place] [id number] [place] [address] 05148- 9948 Sep, Neuropathic ulcer of foot, unspecified laterality, unspecified ulcer stage L97.509 and Acute vaginitis N76.0 [place] [id number] [place] [address] 60821- 9289 12 Sep, 2017 Type 2 diabetes mellitus with diabetic polyneuropathy E11.42 ; 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 ; Essential hypertension I10 ; 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 ; Reactive depression F32.9 ; Acute vaginitis N76.0 and Mild intermittent asthma without complication J45.20 [facility] [address] [address] 17 Jul, 2017 [facility] [address] [address] 14 Jun, 2017 [facility] [address] [place] [id number] [place] [address] 02446- 4986 May, [facility] [address] [place] [id number] [place] [address] 15916 -9332 May, Cellulitis L03.90 [facility] [address] [place] [id number] [place] [address] 88683- 4292 Mar, [facility] [address] [place] [id number] [place] [address] 48367- 5346 Jan, [facility] [address] [place] [id number] [place] [address] 98237- 8461 Jan, [facility] [address] [place] [address] 15263- 4613 Sep, [facility] [address] [place] [id number] [place] [address] 85382- 0101 Sep, [facility] [id number] [place] [address] 75353- 1770 Apr, [facility] [id number] [place] [address] 96441- 5508 Apr, [facility] [address] [place] [id number] [place] [address] 62438- 6116 Apr, [facility] [address] [place] [id number] [place] [address] 61714- 5677 Apr, [facility] [address] [place] [address] 683430- 0317 Apr, [facility] [address] [place] [id number] [place] [address] 40775- 7858 Apr, [facility] [place] [facility] [address] [id number] [place] [address]- 9567 Apr, [facility] [place] [facility] [address] [id number] [place] [address]- 7811 Apr, [facility] [place] [facility] [address] [id number] [place] [address]- 7901 Mar, [facility] [place] [facility] [address] [id number] [place] [address]- 2440 Mar, [facility] [place] [facility] [address] [id number] [place] [address]- 5590 Mar, [facility] [place] [facility] [address] [id number] [place] [address]- 3540 Mar, [facility] [place] [facility] [address] [id number] [place] [address]- 2354 Mar, [facility] [place] [facility] [address] [id number] [address]- 9114 Mar, [facility] [place] [facility] [address] [id number] [place] [address]- 7086 Mar, [facility] [place] [facility] [address] [id number] [place] [address]- 6336 Mar, [facility] [place] [facility] [address] [id number] [address]- 8568 18 Mar, 2014 [facility] [place] [facility] [address] [id number] [address]- 2993 18 Mar, 2014 [facility] [place] [facility] [address] [id number] [place] [address]- 8703 16 Mar, 2014 [facility] [place] [facility] [address] [id number] [place] [address]- 2106 15 Mar, 2014 [facility] [place] [facility] [address] [id number] [place] [address]- 3853 13 Mar, 2014 [facility] [place] [facility] [address] [id number] [place] [address]- 4168 13 Mar, 2014 [facility] [place] [facility] [address] [id number] [place] [address]- 7486 Mar, [facility] [place] [facility] [address] [id number] [place] [address]- 5827 Mar, [facility] [place] [facility] [address] [id number] [place] [address]- 2189 Mar, [facility] [place] [facility] [address] [id number] [place] [address]- 9889 Mar, [facility] [place] [facility] [address] [id number] [place] [address]- 0167 Mar, [facility] [place] [facility] [address] [id number] [place] [address]- 2227 February, [facility] [place] [facility] [address] [id number] [place] [address]- 0062 February, [facility] [place] [facility] [address] [id number] [place] [address]- 6376 24 Jan, 2014 [facility] [place] [facility] [address] [id number] [place] [address]- 3597 24 Jan, 2014 [facility] [place] [facility] [address] [id number] [place] [address]- 9861 Jan, [facility] [place] [facility] [address] [id number] [place] [address]- 2514 18 Jan, 2014 [facility] [place] [facility] [address] [id number] [place] [address]- 1087 17 Jan, 2014 [facility] [place] [facility] [address] [id number] [place] [address]- 5902 17 Jan, 2014 [facility] [place] [facility] [address] [id number] [place] [address]- 0151 14 Jan, 2014 [facility] [place] [facility] [address] [id number] [place] [address]- 7982 Jan, [facility] [place] [facility] [address] [id number] [place] [address]- 3204 Jan, [facility] [place] [facility] [address] [id number] [place] [address]- 2872 Jan, [facility] [place] [facility] [address] [id number] [place] [address]- 0625 Dec, [facility] [place] [facility] [address] [id number] [place] [address]- 1394 Dec, [facility] [place] [facility] [address] [id number] [place] [address]- 8431 Dec, [facility] [place] [facility] [address] [id number] [place] [address]- 2956 Dec, [facility] [place] [facility] [address] [id number] [place] [address]- 6290 Dec, [facility] [place] [facility] [address] [id number] [place] [address]- 7916 Dec, [facility] [place] [facility] [address] [id number] [place] [address]- 1237 Dec, [facility] [place] [facility] [address] [id number] [place] [address]- 5970 Dec, [facility] [place] [facility] [address] [id number] [place] [address]- 1319 Dec, [facility] [place] [facility] [address] [id number] [place] [address]- 3997 Dec, [facility] [place] [facility] [address] [id number] [place] [address]- 8295 Oct, [facility] [place] [facility] [address] [id number] [place] [address]- 3176 Oct, [facility] [place] [facility] [address] [id number] [place] [address]- 6643 Jul, [facility] [place] [facility] [address] [id number] [address]- 3240 Jul, [facility] [address] [id number] [place] [address]- 9022 Jul, [facility] [address] [id number] [place] [address]- 6192 27 Jun, 2013 [facility] [address] [id number] [place] [address]- 4680 Jun, [facility] [address] [id number] [place] [address]- 3281 Jun, [facility] [address] [id number] [place] [address]- 9688 24 Jun, 2013 [facility] [address] [id number] [place] [address]- 2471 Apr, [facility] [address] [facility] [id number] [place] [address]- 5098 February, [facility] [address] [id number] [place] [address]- 1669 Nov, [facility] [address] [facility] [id number] [place] [address]- 9583 Nov, [facility] [address] [facility] [id number] [place] [address]- 8844 Nov, [facility] [address] [facility] [id number] [address]- 6133 Sep, [facility] [address] [id number] [place] [address]- 9646 Sep, [facility] [place] [facility] [address] [id number] [place] [address]- 3974 Sep, [facility] [place] [facility] [address] [id number] [place] [address]- 5936 Sep, [facility] [address] [facility] [id number] [place] [address]- 0074 Sep, [facility] [place] [facility] [address] [id number] [place] [address]- 1970 Sep, [facility] [place] [facility] [address] [id number] [place] [address]- 7806 Sep, [facility] [place] [facility] [address] [id number] [place] [address]- 5696 Sep, [facility] [place] [facility] [address] [id number] [place] [address]- 1926 Sep, [facility] [place] [facility] [address] [id number] [place] [address]- 3634 Sep, [facility] [place] [facility] [address] [id number] [place] [address]- 4278 Aug, [facility] [place] [facility] [address] [id number] [place] 8367 Aug, [facility] [place] [facility] [address] [id number] [place] [address]- 8935 Aug, [facility] [place] [facility] [address] [id number] [place] [address]- 1836 Aug, [facility] [place] [facility] [address] [id number] [place] [address]- 7066 Aug, [facility] [place] [facility] [address] [id number] [place] [address]- 5115 Jul, [facility] [place] [facility] [address] [id number] [place] [address]- 2300 Apr, [facility] [place] [facility] [address] [id number] [place] [address]- 0982 February, [facility] [place] [facility] [address] [id number] [place] [address]- 1678 Jan, [facility] [place] [facility] [address] [id number] [place] [address]- 1299 Jan, [facility] [place] [facility] [address] [id number] [place] [address]- 2894 14 Dec, 2011 [facility] [address] [address]- 3938 Dec, [facility] [address] [address]- 3476 Oct, [facility] [address] [address]- 9756 Oct, [facility] [address] [place] [id number] [place] [address] 69004- 2806 February, [facility] [id number] [place] [address] 37794- 0526 Sep, [facility] [address] [place] [id number] [place] [address] 01195- 3942 Jul, [facility] [address] [place] [id number] [place] [address] 53469- 7486 Jul, [facility] [address] [address]- 6930 Jul, [facility] [address] [address]- 3795 Jun, [facility] [address] [address]- 3026 15 Sep, 2009 [facility] [address] [address]- 3973 Sep, [facility] [address] [address]- 2334 Sep, [facility] [address] [place] [id number] [address]- 9123 15 Jun, 2009 [facility] [address] [address]- 2891 10 Dec, 2008 IMMUNIZATIONS No Known Immunizations SOCIAL HISTORY Never Assessed REASON FOR VISIT PALS IN-Humalog PLAN OF CARE VITAL SIGNS MEDICATIONS Unknown Medications RESULTS No Results PROCEDURES No Known procedures INSTRUCTIONS MEDICATIONS ADMINISTERED No Known Medications MEDICAL (GENERAL) HISTORY Type Description Date Medical History diabetes type 1 Medical History hypertension Medical History asthma Medical History depression Medical History Diabetic Macular Edema Surgical History 1985, 1988, 1991, 1994 Hospitalization History multiple
--- OUTSIDE RECORDS SUMMARY | 2018-08-18 00:03 | XMS REPORT ---
Author Author ALVA BENTLEY [facility] Address [address] [place] [address] Care Team Providers Care Gaming Host Name Role Phone ALVA BENTLEY Unavailable PROBLEMS Type Condition ICD9-CM Code TPH70-JI Code Onset Dates Condition Status SNOMED Code Problem Type 2 diabetes mellitus with diabetic polyneuropathy E11.42 Active 64108434 Problem Mild intermittent asthma without complication J45.20 Active 572266696 Problem technician terminal and repeater current use of insulin Z79.4 Active 125575995 Problem Unspecified staphylococcus as the cause of diseases classified elsewhere B95.8 Active 17401905 Problem Local infection of the skin and subcutaneous tissue, unspecified L08.9 Active 004344446 Problem Anxiety state, unspecified F41.1 Active 486950878 Problem Essential hypertension I10 Active 72048992 Problem Migraine without status migrainosus, not intractable, unspecified migraine type G43.909 Active 55757446 Problem Depressive disorder, not elsewhere classified F32.9 Active 79784406 ALLERGIES No Information ENCOUNTERS Encounter Location Date Diagnosis [place] [id number] [place] [address]112[address] 7350 Mar, Anxiety state, unspecified F41.1 [place] [id number] [address] Mar, Local infection of the skin and subcutaneous tissue, unspecified L08.9 ; Unspecified staphylococcus as the cause of diseases classified elsewhere B95.8 ; Type 2 diabetes mellitus with diabetic polyneuropathy E11.42 and custodial current use of insulin Z79.4 [place] [id number] [place] [address] 10101- 3409 Mar, [facility] [address] [address] February, Type 2 diabetes mellitus with diabetic polyneuropathy E11.42 ; technician terminal and repeater current use of insulin Z79.4 ; Essential hypertension I10 ; Anxiety state, unspecified F41.1 ; Depressive disorder, not elsewhere classified F32.9 and Dysuria R30.0 [place] [address] [address]- [address] Jan, Type 2 diabetes mellitus with diabetic polyneuropathy E11.42 [place] [address] [address]- 26[address] Jan, Type 2 diabetes mellitus with diabetic polyneuropathy E11.42 [place] [address] 8[address]- 67[address] Jan, [facility] [place] [address] [address] Dec, Migraine without status migrainosus, not intractable, unspecified migraine type G43.909 [place] [address] [address]807- 3907 Dec, Type 2 diabetes mellitus with diabetic polyneuropathy E11.42 ; custodial current use of insulin Z79.4 ; Dog bite, subsequent encounter W54.0XXD and Essential hypertension I10 [facility] [place] [address] [address] Dec, Dog bite, initial encounter W54.0XXA [place] [address] 00356- 5167 Dec, [place] [address] 7[address]12- 6382 Nov, [place] [address] 16012- 7466 Oct, [facility] [place] [address] [address]88 [address] Oct, Fissure in skin of foot R23.4 [place] [address] 86895- 8035 Oct, [place] [id number] [place] [address] 20768- 6048 Oct, [place] [address] [place] [id number] [place] [address] 03324- 3187 Oct, [place] [address] [place] [id number] [place] [address] 83690- 8317 Oct, Type 2 diabetes mellitus with diabetic polyneuropathy E11.42 [place] [address] [place] [id number] [place] [address] 51848- 5125 Oct, Anxiety state, unspecified F41.1 and Depressive disorder, not elsewhere classified F32.9 [place] [address] [place] [id number] [place] [address] 41794- 7018 Oct, [place] [address] [place] [id number] [place] [address] 46619- 9696 Oct, [place] [address] [place] [id number] [place] [address] 61575- 3466 Sep, Essential hypertension I10 [place] [address] [place] [id number] [place] [address] 85975- 2447 14 Sep, 2017 [place] [address] [place] [id number] [place] [address] 43898- 5637 Sep, Type 2 diabetes mellitus with diabetic polyneuropathy E11.42 and Neuropathic ulcer of foot, unspecified laterality, unspecified ulcer stage L97.509 [place] [address] [place] [id number] [place] [address] 92803- 9311 Sep, Neuropathic ulcer of foot, unspecified laterality, unspecified ulcer stage L97.509 and Acute vaginitis N76.0 [place] [address] [place] [address] 31336- 3301 12 Sep, 2017 Type 2 diabetes mellitus with diabetic polyneuropathy E11.42 ; technician terminal and repeater current use of insulin Z79.4 ; Essential hypertension I10 ; 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 ; Reactive depression F32.9 ; Acute vaginitis N76.0 and Mild intermittent asthma without complication J45.20 [facility] [address] [address] 7027 17 Jul, 2017 [facility] [address] [address] 14 Jun, 2017 [facility] [address] [place] [id number] [place] [address] 49232- 2044 May, [facility] [address] [place] [id number] [place] [address] 15145 -1065 May, Cellulitis L03.90 [facility] [address] [place] [id number] [place] [address] 46144- 4502 Mar, [facility] [address] [place] [id number] [place] [address] 91729- 5502 Jan, [facility] [address] [place] [id number] [place] [address] 00545- 5502 Jan, [facility] [id number] [place] [address] 62798- 2565 Sep, [facility] [address] [place] [id number] [place] [address] 83455- 2333 Sep, [facility] [id number] [place] [address] 45250- 0200 Apr, [facility] [id number] [place] [address] 50128- 9569 Apr, [facility] [address] [place] [id number] [place] [address] 79655- 5331 Apr, [facility] [address] [place] [id number] [place] [address] 28529- 0857 Apr, [facility] [id number] [place] [address] 601694- 6898 Apr, [facility] [address] [place] [id number] [place] [address] 19935- 7901 Apr, [facility] [place] [facility] [address] [id number] [place] [address]- 6140 Apr, [facility] [place] [facility] [address] [id number] [place] [address]- 3991 Apr, [facility] [place] [facility] [address] [id number] [place] [address]- 3030 Mar, [facility] [place] [facility] [address] [id number] [place] [address]- 6246 Mar, [facility] [place] [facility] [address] [id number] [place] [address]- 4041 Mar, [facility] [place] [facility] [address] [id number] [place] [address]- 3023 Mar, [facility] [place] [facility] [address] [id number] [place] [address]- 0498 Mar, [facility] [place] [facility] [address] [id number] [address]- 2831 Mar, [facility] [place] [facility] [address] [id number] [place] [address]- 2389 Mar, [facility] [place] [facility] [address] [id number] [place] [address]- 5271 Mar, [facility] [place] [facility] [address] [id number] [address]- 8609 18 Mar, 2014 [facility] [place] [facility] [address] [id number] [place] [address]- 9547 18 Mar, 2014 [facility] [place] [facility] [address] [id number] [place] [address]- 8188 16 Mar, 2014 [facility] [place] [facility] [address] [id number] [address]- 3097 15 Mar, 2014 [facility] [place] [facility] [address] [id number] [place] [address]- 1454 13 Mar, 2014 [facility] [place] [facility] [address] [id number] [place] [address]- 2310 13 Mar, 2014 [facility] [place] [facility] [address] [id number] [place] [address]- 9814 Mar, [facility] [place] [facility] [address] [id number] [place] [address]- 6440 Mar, [facility] [place] [facility] [address] [id number] [place] [address]- 2972 Mar, [facility] [place] [facility] [address] [id number] [place] [address]- 6379 Mar, [facility] [place] [facility] [address] [id number] [place] [address]- 7122 Mar, [facility] [place] [facility] [address] [id number] [place] [address]- 8748 February, [facility] [place] [facility] [address] [id number] [place] [address]- 3018 February, [facility] [place] [facility] [address] [id number] [place] [address]- 5572 24 Jan, 2014 [facility] [place] [facility] [address] [id number] [place] [address]- 6929 24 Jan, 2014 [facility] [place] [facility] [address] [id number] [place] [address]- 4983 Jan, [facility] [place] [facility] [address] [id number] [place] [address]- 8008 18 Jan, 2014 [facility] [place] [facility] [address] [id number] [place] [address]- 8234 17 Jan, 2014 [facility] [place] [facility] [address] [id number] [place] [address]- 1571 17 Jan, 2014 [facility] [place] [facility] [address] [id number] [place] [address]- 1736 14 Jan, 2014 [facility] [place] [facility] [address] [id number] [place] [address]- 4212 Jan, [facility] [place] [facility] [address] [id number] [place] [address]- 6903 Jan, [facility] [place] [facility] [address] [id number] [place] [address]- 6551 Jan, [facility] [place] [facility] [address] [id number] [place] [address]- 9532 Dec, [facility] [place] [facility] [address] [id number] [place] [address]- 4781 Dec, [facility] [place] [facility] [address] [id number] [place] [address]- 5815 Dec, [facility] [place] [facility] [address] [id number] [place] [address]- 0711 Dec, [facility] [place] [facility] [address] [id number] [place] [address]- 5312 Dec, [facility] [place] [facility] [address] [id number] [place] [address]- 5391 Dec, [facility] [place] [facility] [address] [id number] [place] [address]- 4750 Dec, [facility] [place] [facility] [address] [id number] [place] [address]- 2835 Dec, [facility] [place] [facility] [address] [id number] [place] [address]- 4534 Dec, [facility] [place] [facility] [address] [id number] [place] [address]- 1019 Dec, [facility] [place] [facility] [address] [id number] [place] [address]- 5771 Oct, [facility] [place] [facility] [address] [id number] [place] [address]- 3356 Oct, [facility] [place] [facility] [address] [id number] [place] [address]- 1367 Jul, [facility] [place] [facility] [address] [id number] [address]- 1460 Jul, [facility] [address] [id number] [place] [address]- 1308 Jul, [facility] [address] [id number] [place] [address]- 1839 27 Jun, 2013 [facility] [address] [id number] [place] [address]- 8028 Jun, [facility] [address] [id number] [place] [address]- 4651 Jun, [facility] [address] [id number] [place] [address]- 2874 24 Jun, 2013 [facility] [address] [id number] [place] [address]- 5494 Apr, [facility] [address] [facility] [id number] [place] [address]- 7162 February, [facility] [address] [id number] [place] [address]- 1991 Nov, [facility] [address] [facility] [id number] [place] [address]- 1941 Nov, [facility] [address] [facility] [id number] [place] [address]- 5343 Nov, [facility] [address] [facility] [id number] [place] [address]- 4243 Sep, [facility] [address] [id number] [place] [address]- 7030 Sep, [facility] [place] [facility] [address] [id number] [place] [address]- 8268 Sep, [facility] [place] [facility] [address] [id number] [place] [address]- 4300 Sep, [facility] [address] [facility] [id number] [place] [address]- 3752 Sep, [facility] [place] [facility] [address] [id number] [place] [address]- 0425 Sep, [facility] [place] [facility] [address] [id number] [place] [address]- 1626 Sep, [facility] [place] [facility] [address] [id number] [place] [address]- 2326 Sep, [facility] [place] [facility] [address] [id number] [place] [address]- 6806 Sep, [facility] [place] [facility] [address] [id number] [place] [address]- 5848 Sep, [facility] [place] [facility] [address] [id number] [place] [address]- 3834 Aug, [facility] [place] [facility] [address] [id number] [place] [address]76 Aug, [facility] [place] [facility] [address] [id number] [place] [address]- 4318 Aug, [facility] [place] [facility] [address] [id number] [place] [address]- 1701 Aug, [facility] [place] [facility] [address] [id number] [place] [address]- 6751 Aug, [facility] [place] [facility] [address] [id number] [place] [address]- 4617 Jul, [facility] [place] [facility] [address] [id number] [place] [address]- 4727 Apr, [facility] [place] [facility] [address] [id number] [place] [address]- 8634 February, [facility] [place] [facility] [address] [id number] [place] [address]- 6386 Jan, [facility] [place] [facility] [address] [id number] [place] [address]- 4679 Jan, [facility] [place] [facility] [address] [id number] [place] [address]- 8552 14 Dec, 2011 [facility] [address] [place] [id number] [address]- 6498 Dec, [facility] [address] [address]- 6566 Oct, [facility] [address] [address]- 4626 Oct, [facility] [address] [address]- 9358 February, [facility] [address] [address]- 8847 Sep, [facility] [id number] [place] [address] 12413- 1727 Jul, [facility] [address] [address]- 4076 Jul, [facility] [address] [address]- 2485 Jul, [facility] [address] [address]- 1634 Jun, [facility] [address] [address]- 2816 15 Sep, 2009 [facility] [address] [address]- 2588 Sep, [facility] [address] [place] [id number] [address]- 5880 Sep, [facility] [address] [place] [id number] [address]- 9738 15 Jun, 2009 [facility] [address] [address]- 3700 10 Dec, 2008 IMMUNIZATIONS No Known Immunizations SOCIAL HISTORY Never Assessed REASON FOR VISIT triage PLAN OF CARE VITAL SIGNS MEDICATIONS Unknown Medications RESULTS No Results PROCEDURES No Known procedures INSTRUCTIONS MEDICATIONS ADMINISTERED No Known Medications MEDICAL (GENERAL) HISTORY Type Description Date Medical History diabetes type 1 Medical History hypertension Medical History asthma Medical History depression Medical History Diabetic Macular Edema Surgical History 1985, 1988, 1991, 1994 Hospitalization History multiple
--- OUTSIDE RECORDS SUMMARY | 2018-08-18 00:03 | XMS REPORT ---
Author Author SCOTT Wade [facility] IN [facility] Address [address] [place] [address] Care Team Providers Care Chain Dyer Name Role Phone Sheri SCOTT Unavailable PROBLEMS Type Condition ICD9-CM Code DRX52-UB Code Onset Dates Condition Status SNOMED Code Problem [facility] current use of insulin Z79.4 Active 755533180 Problem Mild intermittent asthma without complication J45.20 Active 659793560 Problem Migraine without status migrainosus, not intractable, unspecified migraine type G43.909 Active 25374185 Problem Depressive disorder, not elsewhere classified F32.9 Active 51943053 Problem Type 2 diabetes mellitus with diabetic polyneuropathy E11.42 Active 82062295 Problem 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 Active 492978180 Problem Anxiety state, unspecified F41.1 Active 478402802 Problem Essential hypertension I10 Active 58001827 ALLERGIES No Information ENCOUNTERS Encounter Location Date Diagnosis [place] [id number] [address] Jan, [facility] [address] [address] Jan, Type 2 diabetes mellitus with diabetic polyneuropathy E11.42 [facility] [address] [address] Jan, [facility] [address] [address] Dec, Migraine without status migrainosus, not intractable, unspecified migraine type G43.909 [facility] [address] [place] [id number] [place] [address]- [address] 12 Dec, 2017 Type 2 diabetes mellitus with diabetic polyneuropathy E11.42 ; 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 [address] [address] Oct, Fissure in skin of foot R23.4 [place] [address] [address] Oct, [facility] [address] [address]- 79[address] Oct, [facility] [address] [address] Oct, [facility] [address] [place] [id number] [place] [address]- 2491 Oct, Type 2 diabetes mellitus with diabetic polyneuropathy E11.42 [place] [address] [address] Oct, Anxiety state, unspecified F41.1 and Depressive disorder, not elsewhere classified F32.9 [place] [address] [place] [id number] [place] [address]- 28[address] Oct, [place] [address] [place] [id number] [place] [address]- 3[address] Oct, [facility] [address] [place] [id number] [place] [address] 6[address]99- 8808 Sep, Essential hypertension I10 [place] [address] [place] [id number] [place] [address]- [address] Sep, [facility] [address] [place] [id number] [place] [address] 8[address]19- 3560 Sep, Type 2 diabetes mellitus with diabetic polyneuropathy E11.42 and Neuropathic ulcer of foot, unspecified laterality, unspecified ulcer stage L97.509 [place] [address] [place] [id number] [place] [address] 9[address]31- 1026 Sep, Neuropathic ulcer of foot, unspecified laterality, unspecified ulcer stage L97.509 and Acute vaginitis N76.0 [place] [address] [address]- 78[address] 12 Sep, 2017 Type 2 diabetes mellitus with diabetic polyneuropathy E11.42 ; [facility] current use of insulin Z79.4 ; Essential hypertension I10 ; 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 [id number] [place] [address] May, Cellulitis L03.90 [place] [address] [place] [id number] [place] [address] 48172- 6032 Mar, [place] [address] [place] [id number] [place] [address] 78744- 2296 14 Jan, 2015 [facility] [address] [place] [id number] [place] [address]18- 0894 Jan, [facility] [address] [id number] [place] [address] 01705- 6627 Sep, [facility] [place] [facility] [address] [id number] [place] [address]- 3517 Sep, [facility] [place] [facility] [address] [id number] [place] [address]- 8377 Apr, [facility] [place] [facility] [address] [id number] [place] [address]- 8407 Apr, [facility] [place] [facility] [address] [id number] [place] [address]- 9245 Apr, [facility] [place] [facility] [address] [id number] [place] [address]- 0475 Apr, [facility] [place] [facility] [address] [id number] [place] [address]- 2256 Apr, [facility] [place] [facility] [address] [id number] [place] [address]- 7093 Apr, [facility] [place] [facility] [address] [id number] [place] [address]- 0844 Apr, [facility] [place] [facility] [address] [id number] [place] [address]- 4961 Apr, [facility] [place] [facility] [address] [id number] [place] [address]- 2509 Mar, [facility] [place] [facility] [address] [id number] [place] [address]- 1656 Mar, [facility] [place] [facility] [address] [id number] [place] [address]- 7134 Mar, [facility] [place] [facility] [address] [id number] [place] [address]- 6321 Mar, [facility] [place] [facility] [address] [id number] [place] [address]- 1822 Mar, [facility] [place] [facility] [address] [id number] [place] [address]- 6283 Mar, [facility] [place] [facility] [address] [id number] [place] [address]- 1576 19 Mar, 2014 [facility] [place] [facility] [address] [id number] [place] [address]- 1134 19 Mar, 2014 [facility] [place] [facility] [address] [id number] [place] [address]- 7152 18 Mar, 2014 [facility] [place] [facility] [address] [id number] [place] [address]- 9959 18 Mar, 2014 [facility] [place] [facility] [address] [id number] [place] [address]- 0903 16 Mar, 2014 [facility] [place] [facility] [address] [id number] [place] [address]- 9828 15 Mar, 2014 [facility] [place] [facility] [address] [id number] [place] [address]- 8028 13 Mar, 2014 [facility] [place] [facility] [address] [id number] [place] [address]- 3747 Mar, [facility] [place] [facility] [address] [id number] [place] [address]- 2511 11 Mar, 2014 [facility] [place] [facility] [address] [id number] [place] [address]- 1073 Mar, [facility] [place] [facility] [address] [id number] [place] [address]- 7281 Mar, [facility] [place] [facility] [address] [id number] [place] [address]- 4556 Mar, [facility] [place] [facility] [address] [id number] [place] [address]- 5337 Mar, [facility] [place] [facility] [address] [id number] [place] [address]- 6990 February, [facility] [place] [facility] [address] [id number] [place] [address]- 1080 February, [facility] [place] [facility] [address] [id number] [place] [address]- 5444 Jan, [facility] [place] [facility] [address] [id number] [place] [address]- 3091 24 Jan, 2014 [facility] [place] [facility] [address] [id number] [place] [address]- 6380 18 Jan, 2014 [facility] [place] [facility] [address] [id number] [place] [address]- 1557 18 Jan, 2014 [facility] [place] [facility] [address] [id number] [place] [address]- 9503 Jan, [facility] [place] [facility] [address] [id number] [place] [address]- 4400 Jan, [facility] [place] [facility] [address] [id number] [place] [address]- 7059 14 Jan, 2014 [facility] [place] [facility] [address] [id number] [place] [address]- 4940 Jan, [facility] [place] [facility] [address] [id number] [place] [address]- 0675 10 Jan, 2014 [facility] [place] [facility] [address] [id number] [place] [address]- 1606 Jan, [facility] [place] [facility] [address] [id number] [place] [address]- 4892 Dec, [facility] [place] [facility] [address] [id number] [place] [address]- 9584 17 Dec, 2013 [facility] [place] [facility] [address] [id number] [place] [address]- 9288 11 Dec, 2013 [facility] [place] [facility] [address] [id number] [place] [address]- 7657 11 Dec, 2013 [facility] [place] [facility] [address] [id number] [place] [address]- 8344 Dec, [facility] [place] [facility] [address] [id number] [place] [address]- 7388 10 Dec, 2013 [facility] [place] [facility] [address] [id number] [place] [address]- 1659 07 Dec, 2013 [facility] [place] [facility] [address] [id number] [place] [address]- 4139 Dec, [facility] [place] [facility] [address] [id number] [place] [address]- 1811 Dec, [facility] [place] [facility] [address] [id number] [place] [address]- 7127 Dec, [facility] [place] [facility] [address] [id number] [place] [address]- 5593 Oct, [facility] [place] [facility] [address] [id number] [place] 5657 Oct, [facility] [place] [facility] [address] [id number] [place] [address]- 4510 Jul, [facility] [place] [facility] [address] [id number] [place] [address]- 3179 Jul, [facility] [place] [facility] [address] [id number] [place] [address]- 1072 Jul, [facility] [place] [facility] [address] [id number] [place] [address]- 0842 Jun, [facility] [place] [facility] [address] [id number] [place] [address]- 1721 Jun, [facility] [place] [facility] [address] [id number] [place] [address]- 4996 Jun, [facility] [place] [facility] [address] [id number], [place] [address]- 2353 Jun, [facility] [place] [facility] [address] [id number] [place] [address]- 9824 Apr, [facility] [place] [facility] [address] [id number] [place] [address]- 5964 February, [facility] [place] [facility] [address] [id number], [place] [address]- 6451 Nov, [facility] [place] [facility] [address] [id number] [place] [address]- 9793 14 Nov, 2012 [facility] [address] [id number] [place] [address]- 6746 14 Nov, 2012 [facility] [address] [id number] [place] [address]- 8900 Sep, [facility] [place] [facility] [address] [id number] [place] [address]- 4056 Sep, [facility] [address] [id number] [place] [address]- 8402 18 Sep, 2012 [facility] [address] [id number] [place] [address]- 6425 Sep, [facility] [address] [id number] [place] [address]- 0514 Sep, [facility] [address] [id number] [place] [address]- 1507 Sep, [facility] [address] [id number] [place] [address]- 7019 Sep, [facility] [address] [id number] [place] [address]- 0325 Sep, [facility] [place] [facility] [address] [id number] [place] [address]- 7275 Sep, [facility] [place] [facility] [address] [id number] [place] [address]- 1789 Sep, [facility] [place] [facility] [address] [id number] [place] [address]- 5783 Aug, [facility] [place] [facility] [address] [id number] [place] [address]- 0356 Aug, [facility] [place] [facility] [address] [id number] [place] [address]- 9200 Aug, [facility] [place] [facility] [address] [id number] [place] [address]- 0245 Aug, [facility] [place] [facility] [address] [id number] [place] [address]- 0481 Aug, [facility] [place] [facility] [address] [id number] [place] [address]- 4186 Jul, [facility] [place] [facility] [address] [id number] [place] [address]- 9045 Apr, [facility] [place] [facility] [address] [id number] [place] [address]- 7306 February, [facility] [place] [facility] [address] [id number] [place] [address]- 5545 Jan, [facility] [place] [facility] [address] [id number] [place] [address]- 7071 Jan, [facility] [place] [facility] [address] [id number] [place] [address]- 9305 Dec, [facility] [place] [facility] [address] [id number] [place] [address]- 5584 Dec, [facility] [place] [facility] [address] [id number] [place] [address]- 9016 Oct, [facility] [place] [facility] [address] [id number] [place] [address]- 0011 Oct, [facility] [place] [facility] [address] [id number], [place] [address]- 4986 February, [facility] [place] [facility] [address] [id number] [place] [address]- 8694 Sep, [facility] [place] [facility] [address] [id number] [place] [address]- 4384 Jul, [facility] [place] [facility] [address] [id number] [place] [address]- 3926 Jul, [facility] [place] [facility] [address] [id number] [place] [address]- 8327 Jul, [facility] [place] [facility] [address] [id number] [address]- 7026 17 Jun, 2010 [facility] [address] [id number] [address]- 7171 15 Sep, 2009 [facility] [id number], [place] [address]- 1241 Sep, [facility] [address] [id number], [place] [address]- [address]958 Sep, [facility] [address], [place] [address]- 5039 15 Jun, 2009 [facility] [address] [id number], [place] [address]- 6036 10 Dec, 2008 IMMUNIZATIONS No Known Immunizations SOCIAL HISTORY Never Assessed REASON FOR VISIT wanting lab results PLAN OF CARE VITAL SIGNS MEDICATIONS Unknown Medications RESULTS No Results PROCEDURES No Known procedures INSTRUCTIONS MEDICATIONS ADMINISTERED No Known Medications MEDICAL (GENERAL) HISTORY Type Description Date Medical History diabetes type 1 Medical History hypertension Medical History asthma Medical History depression Surgical History 1985, 1988, 1991, 1994 Hospitalization History multiple
--- OUTSIDE RECORDS SUMMARY | 2018-08-18 00:03 | XMS REPORT ---
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 Active 289834912 Problem Unspecified staphylococcus as the cause of diseases classified elsewhere B95.8 Active 95796102 Problem Local infection of the skin and subcutaneous tissue, unspecified L08.9 Active 350455194 Problem Anxiety state, unspecified F41.1 Active 235381951 Problem Essential hypertension I10 Active 94070032 Problem Migraine without status migrainosus, not intractable, unspecified migraine type G43.909 Active 90648391 Problem Depressive disorder, not elsewhere classified F32.9 Active 49226012 ALLERGIES No Information ENCOUNTERS Encounter Location Date Diagnosis [place] [id number] [place] [address]842- [address]578 Mar, Anxiety state, unspecified F41.1 [place] [id number] [address] Mar, Local infection of the skin and subcutaneous tissue, unspecified L08.9 ; Unspecified staphylococcus as the cause of diseases classified elsewhere B95.8 ; Type 2 diabetes mellitus with diabetic polyneuropathy E11.42 and group home current use of insulin Z79.4 [place] [address] [place] [address] 00606- 5440 Mar, [facility] [address] [address] February, Type 2 diabetes mellitus with diabetic polyneuropathy E11.42 ; 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 ; Essential hypertension I10 ; Anxiety state, unspecified F41.1 ; Depressive disorder, not elsewhere classified F32.9 and Dysuria R30.0 [place] [address] [address]- [address] Jan, Type 2 diabetes mellitus with diabetic polyneuropathy E11.42 [place] [address] 95669- 7142 Jan, Type 2 diabetes mellitus with diabetic polyneuropathy E11.42 [place] [address] 44643- 3071 Jan, [facility] [place] [address] [address] Dec, Migraine without status migrainosus, not intractable, unspecified migraine type G43.909 [place] [address] 20995- 5601 Dec, Type 2 diabetes mellitus with diabetic polyneuropathy E11.42 ; group home current use of insulin Z79.4 ; Dog bite, subsequent encounter W54.0XXD and Essential hypertension I10 [facility] [place] [address] [address]293 Dec, Dog bite, initial encounter W54.0XXA [place] [address] 7[address]28- 6609 Dec, [place] [address] 6[address]31- 0536 Nov, [place] [address] 0[address]69- 0978 Oct, [facility] [place] [address] [address]36 [address]91 Oct, Fissure in skin of foot R23.4 [place] [address] 71599- 2885 Oct, [place] [address] [place] [address] 21275- 4839 Oct, [place] [address] [place] [id number] [place] [address] 88731- 4746 Oct, [place] [address] [place] [id number] [place] [address] 78725- 7857 Oct, Type 2 diabetes mellitus with diabetic polyneuropathy E11.42 [place] [address] [place] [id number] [place] [address] 20811- 0654 Oct, Anxiety state, unspecified F41.1 and Depressive disorder, not elsewhere classified F32.9 [place] [address] [place] [id number] [place] [address] 45259- 0917 Oct, [place] [address] [place] [id number] [place] [address] 67863- 4982 Oct, [place] [address] [place] [id number] [place] [address] 31204- 5524 Sep, Essential hypertension I10 [place] [address] [place] [id number] [place] [address] 21624- 7058 14 Sep, 2017 [place] [address] [place] [id number] [place] [address] 82546- 6400 Sep, Type 2 diabetes mellitus with diabetic polyneuropathy E11.42 and Neuropathic ulcer of foot, unspecified laterality, unspecified ulcer stage L97.509 [place] [address] [place] [id number] [place] [address] 31684- 4282 Sep, Neuropathic ulcer of foot, unspecified laterality, unspecified ulcer stage L97.509 and Acute vaginitis N76.0 [place] [address] [place] [address] 68288- 9602 12 Sep, 2017 Type 2 diabetes mellitus with diabetic polyneuropathy E11.42 ; 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 ; Essential hypertension I10 ; 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 ; Reactive depression F32.9 ; Acute vaginitis N76.0 and Mild intermittent asthma without complication J45.20 [facility] [address], [place] [address]- 4[address] 17 Jul, 2017 [facility] [address], [place] [address] 14 Jun, 2017 [facility] [address] [place] [id number] [place] [address] 80466- 2734 May, [facility] [address] [place] [id number] [place] [address] 26010 -7221 May, Cellulitis L03.90 [facility] [address] [place] [id number] [place] [address] 30087- 9975 Mar, [facility] [address] [place] [id number] [place] [address] 02984- 2457 Jan, [facility] [address] [place] [id number] [place] [address] 68756- 3291 Jan, [facility] [address] [place] [address] 25099- 8741 Sep, [facility] [address] [place] [id number] [place] [address] 94641- 9637 Sep, [facility] [address] [place] [address] 92886- 1742 Apr, [facility] [address] [place] [address] 34708- 9810 Apr, [facility] [address] [place] [id number] [place] [address] 40239- 5965 Apr, [facility] [address] [place] [id number] [place] [address] 19032- 6341 Apr, [facility] [address] [place] [address] 875379- 4482 Apr, [facility] [address] [place] [id number] [place] [address] 92204- 4383 Apr, [facility] [place] [facility] [address] [id number] [place] [address]- 1247 Apr, [facility] [place] [facility] [address] [id number] [place] [address]- 5288 Apr, [facility] [place] [facility] [address] [id number] [place] [address]- 6599 Mar, [facility] [place] [facility] [address] [id number] [place] [address]- 8249 Mar, [facility] [place] [facility] [address] [id number] [place] [address]- 1324 Mar, [facility] [place] [facility] [address] [id number] [place] [address]- 2449 Mar, [facility] [place] [facility] [address] [id number] [place] [address]- 7264 Mar, [facility] [place] [facility] [address] [id number] [address]- 0855 Mar, [facility] [place] [facility] [address] [id number] [place] [address]- 1534 Mar, [facility] [place] [facility] [address] [id number] [place] [address]- 6766 Mar, [facility] [place] [facility] [address] [id number] [address]- 5723 18 Mar, 2014 [facility] [place] [facility] [address] [id number] [address]- 1048 18 Mar, 2014 [facility] [place] [facility] [address] [id number] [place] [address]- 0743 16 Mar, 2014 [facility] [place] [facility] [address] [id number], [place] [address]- 1827 15 Mar, 2014 [facility] [place] [facility] [address] [id number] [place] [address]- 4397 13 Mar, 2014 [facility] [place] [facility] [address] [id number] [place] [address]- 7972 13 Mar, 2014 [facility] [place] [facility] [address] [id number] [place] [address]- 5464 Mar, [facility] [place] [facility] [address] [id number] [place] [address]- 2147 Mar, [facility] [place] [facility] [address] [id number] [place] [address]- 2411 Mar, [facility] [place] [facility] [address] [id number] [place] [address]- 7525 Mar, [facility] [place] [facility] [address] [id number] [place] [address]- 9257 Mar, [facility] [place] [facility] [address] [id number] [place] [address]- 7930 February, [facility] [place] [facility] [address] [id number] [place] [address]- 2713 February, [facility] [place] [facility] [address] [id number] [place] [address]- 3941 24 Jan, 2014 [facility] [place] [facility] [address] [id number] [place] [address]- 7075 24 Jan, 2014 [facility] [place] [facility] [address] [id number] [place] [address]- 1800 Jan, [facility] [place] [facility] [address] [id number] [place] [address]- 7166 18 Jan, 2014 [facility] [place] [facility] [address] [id number] [place] [address]- 1835 17 Jan, 2014 [facility] [place] [facility] [address] [id number] [place] [address]- 4397 17 Jan, 2014 [facility] [place] [facility] [address] [id number] [place] [address]- 9086 14 Jan, 2014 [facility] [place] [facility] [address] [id number] [place] [address]- 1126 Jan, [facility] [place] [facility] [address] [id number] [place] [address]- 4927 Jan, [facility] [place] [facility] [address] [id number] [place] [address]- 2434 Jan, [facility] [place] [facility] [address] [id number] [place] [address]- 7271 Dec, [facility] [place] [facility] [address] [id number] [place] [address]- 0511 Dec, [facility] [place] [facility] [address] [id number] [place] [address]- 4773 Dec, [facility] [place] [facility] [address] [id number] [place] [address]- 4645 Dec, [facility] [place] [facility] [address] [id number] [place] [address]- 8447 Dec, [facility] [place] [facility] [address] [id number] [place] [address]- 5036 Dec, [facility] [place] [facility] [address] [id number] [place] [address]- 3516 Dec, [facility] [place] [facility] [address] [id number] [place] [address]- 8717 Dec, [facility] [place] [facility] [address] [id number] [place] [address]- 4441 Dec, [facility] [place] [facility] [address] [id number] [place] [address]- 5266 Dec, [facility] [place] [facility] [address] [id number] [place] [address]- 5807 Oct, [facility] [place] [facility] [address] [id number] [place] [address]- 2706 Oct, [facility] [place] [facility] [address] [id number] [place] [address]- 3777 Jul, [facility] [place] [facility] [address] [id number], [place] [address]- 1422 Jul, [facility] [address] [id number] [place] [address]- 0443 Jul, [facility] [address] [id number] [address]- 8681 27 Jun, 2013 [facility] [address] [id number] [place] [address]- 7283 Jun, [facility] [address] [id number] [place] [address]- 1276 Jun, [facility] [address] [id number] [place] [address]- 2603 24 Jun, 2013 [facility] [address] [id number] [place] [address]- 6726 Apr, [facility] [address] [facility] [id number] [place] [address]- 2863 February, [facility] [address] [id number] [place] [address]- 6440 Nov, [facility] [address] [facility] [id number] [place] [address]- 0416 Nov, [facility] [address] [facility] [id number] [place] [address]- 7783 Nov, [facility] [address] [facility] [id number], [place] [address]- 1107 Sep, [facility] [address] [id number] [address]- 5472 Sep, [facility] [place] [facility] [address] [id number] [place] [address]- 6199 Sep, [facility] [place] [facility] [address] [id number] [place] [address]- 1945 Sep, [facility] [address] [facility] [id number], [place] [address]- 8711 Sep, [facility] [place] [facility] [address] [id number] [place] [address]- 5133 Sep, [facility] [place] [facility] [address] [id number] [place] [address]- 2136 Sep, [facility] [place] [facility] [address] [id number] [place] [address]- 1806 Sep, [facility] [place] [facility] [address] [id number] [place] [address]- 6326 Sep, [facility] [place] [facility] [address] [id number] [place] [address]- 9172 Sep, [facility] [place] [facility] [address] [id number] [place] [address]- 3157 Aug, [facility] [place] [facility] [address] [id number] [place] 9346 Aug, [facility] [place] [facility] [address] [id number] [place] [address]- 8996 Aug, [facility] [place] [facility] [address] [id number] [place] [address]- 3424 Aug, [facility] [place] [facility] [address] [id number] [place] [address]- 9654 Aug, [facility] [place] [facility] [address] [id number] [place] [address]- 7967 Jul, [facility] [place] [facility] [address] [id number] [place] [address]- 1809 Apr, [facility] [place] [facility] [address] [id number] [place] [address]- 2959 February, [facility] [place] [facility] [address] [id number] [place] [address]- 3216 Jan, [facility] [place] [facility] [address] [id number] [place] [address]- 1671 Jan, [facility] [place] [facility] [address] [id number] [place] [address]- 5423 14 Dec, 2011 [facility] [address] [place] [id number] [address]- 1242 Dec, [facility] [address], [place] [address]- 9646 Oct, [facility] [address], [place] [address]- 5376 Oct, [facility] [address] [address]- 6416 February, [facility] [address], [place] [address]- 7162 Sep, [facility] [address] [place] [address] 07591- 9693 Jul, [facility] [address], [place] [address]- 3217 Jul, [facility] [address], [place] [address]- 7384 Jul, [facility] [address], [place] [address]- 9048 Jun, [facility] [address], [place] [address]- 5346 15 Sep, 2009 [facility] [address], [place] [address]- 9369 Sep, [facility] [address] [place] [id number], [place] [address]- 8861 Sep, [facility] [address] [place] [id number], [place] [address]- 5358 15 Jun, 2009 [facility] [address], [place] [address]- 8762 10 Dec, 2008 IMMUNIZATIONS No Known Immunizations [...]
--- OUTSIDE RECORDS SUMMARY | 2018-08-18 00:04 | XMS REPORT ---
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 Chief Name Role Phone Sheri SCOTT Unavailable PROBLEMS Type Condition ICD9-CM Code UKX39-NT Code Onset Dates Condition Status SNOMED Code Problem FCI current use of insulin Z79.4 Active 975083591 Problem Mild intermittent asthma without complication J45.20 Active 548798279 Problem Migraine without status migrainosus, not intractable, unspecified migraine type G43.909 Active 67133232 Problem Depressive disorder, not elsewhere classified F32.9 Active 14959483 Problem Type 2 diabetes mellitus with diabetic polyneuropathy E11.42 Active 98930437 Problem 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 Active 892807212 Problem Anxiety state, unspecified F41.1 Active 750499342 Problem Essential hypertension I10 Active 47225346 ALLERGIES No Information ENCOUNTERS Encounter Location Date Diagnosis [place] [id number] [address] Jan, [facility] [address] [address] Jan, Type 2 diabetes mellitus with diabetic polyneuropathy E11.42 [facility] [address] [address] Jan, [facility] [address] [address] Dec, Migraine without status migrainosus, not intractable, unspecified migraine type G43.909 [facility] [address] [place] [id number] [place] [address]89- 0082 12 Dec, 2017 Type 2 diabetes mellitus with diabetic polyneuropathy E11.42 ; 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 ; Dog bite, subsequent encounter W54.0XXD and Essential hypertension I10 [facility] [address] [place] [id number] [place] [address] Dec, Dog bite, initial encounter W54.0XXA [facility] [address] [address] Dec, [facility] [address] [address] Nov, [facility] [address] [address] Oct, [facility] [address] [address] Oct, Fissure in skin of foot R23.4 [place] [address] [address] Oct, [facility] [address] [address]- [address] Oct, [facility] [address] [address]- 7642 Oct, [facility] [address] [place] [id number] [place] [address]- 287[address] Oct, Type 2 diabetes mellitus with diabetic polyneuropathy E11.42 [place] [address] [address] Oct, Anxiety state, unspecified F41.1 and Depressive disorder, not elsewhere classified F32.9 [place] [address] [place] [id number] [place] [address]16- 2160 Oct, [place] [address] [place] [id number] [place] [address] 94283- 9905 Oct, [facility] [address] [place] [id number] [place] [address]67- 9437 Sep, Essential hypertension I10 [place] [address] [place] [id number] [place] [address] 46735- 1820 Sep, [facility] [address] [place] [id number] [place] [address] 69533- 0491 Sep, Type 2 diabetes mellitus with diabetic polyneuropathy E11.42 and Neuropathic ulcer of foot, unspecified laterality, unspecified ulcer stage L97.509 [place] [address] [place] [id number] [place] [address] 41672- 8684 Sep, Neuropathic ulcer of foot, unspecified laterality, unspecified ulcer stage L97.509 and Acute vaginitis N76.0 [place] [address] 8[address]15- 7646 12 Sep, 2017 Type 2 diabetes mellitus with diabetic polyneuropathy E11.42 ; FCI current use of insulin Z79.4 ; Essential hypertension I10 ; 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 ; Reactive depression F32.9 ; Acute vaginitis N76.0 and Mild intermittent asthma without complication J45.20 [place] [address] [place] [id number] [place] [address] 43171- 4839 Jul, [facility] [address] [place] [id number] [place] [address]89 -8718 Jun, [place] [address] [place] [id number] [place] [address] 00791- 2224 May, [facility] [address] [place] [id number] [place] [address]44[address] May, Cellulitis L03.90 [place] [address] [place] [id number] [place] [address] 19421- 9465 Mar, [place] [address] [place] [id number] [place] [address] 10500- 3663 14 Jan, 2015 [facility] [address] [place] [id number] [place] [address] 13635- 9584 Jan, [facility] [address] [place] [id number] [place] [address] 15488- 8114 Sep, [facility] [place] [facility] [address] [id number] [place] [address]- 4347 Sep, [facility] [place] [facility] [address] [id number] [place] [address]- 8053 Apr, [facility] [place] [facility] [address] [id number] [place] [address]- 1753 Apr, [facility] [place] [facility] [address] [id number] [place] [address]- 2491 Apr, [facility] [place] [facility] [address] [id number] [place] [address]- 6423 Apr, [facility] [place] [facility] [address] [id number] [place] [address]- 1099 Apr, [facility] [place] [facility] [address] [id number] [place] [address]- 6241 Apr, [facility] [place] [facility] [address] [id number] [place] [address]- 8161 Apr, [facility] [place] [facility] [address] [id number] [place] [address]- 6400 Apr, [facility] [place] [facility] [address] [id number] [place] [address]- 1916 Mar, [facility] [place] [facility] [address] [id number] [place] [address]- 4537 Mar, [facility] [place] [facility] [address] [id number] [place] [address]- 1745 Mar, [facility] [place] [facility] [address] [id number] [place] [address]- 6402 Mar, [facility] [place] [facility] [address] [id number] [place] [address]- 4920 Mar, [facility] [place] [facility] [address] [id number] [place] [address]- 9150 Mar, [facility] [place] [facility] [address] [id number] [place] [address]- 0930 19 Mar, 2014 [facility] [place] [facility] [address] [id number] [place] [address]- 1810 19 Mar, 2014 [facility] [place] [facility] [address] [id number] [place] [address]- 1427 18 Mar, 2014 [facility] [place] [facility] [address] [id number] [place] [address]- 8319 18 Mar, 2014 [facility] [place] [facility] [address] [id number] [place] [address]- 0578 16 Mar, 2014 [facility] [place] [facility] [address] [id number] [place] [address]- 1080 15 Mar, 2014 [facility] [place] [facility] [address] [id number] [place] [address]- 1593 13 Mar, 2014 [facility] [place] [facility] [address] [id number] [place] [address]- 0562 Mar, [facility] [place] [facility] [address] [id number] [place] [address]- 0341 11 Mar, 2014 [facility] [place] [facility] [address] [id number] [place] [address]- 6384 Mar, [facility] [place] [facility] [address] [id number] [place] [address]- 2652 Mar, [facility] [place] [facility] [address] [id number] [place] [address]- 2228 Mar, [facility] [place] [facility] [address] [id number] [place] [address]- 0552 Mar, [facility] [place] [facility] [address] [id number] [place] [address]- 8790 February, [facility] [place] [facility] [address] [id number] [place] [address]- 2980 February, [facility] [place] [facility] [address] [id number] [place] [address]- 5961 Jan, [facility] [place] [facility] [address] [id number] [place] [address]- 3585 24 Jan, 2014 [facility] [place] [facility] [address] [id number] [place] [address]- 1088 18 Jan, 2014 [facility] [place] [facility] [address] [id number] [place] [address]- 0656 18 Jan, 2014 [facility] [place] [facility] [address] [id number] [place] [address]- 3210 Jan, [facility] [place] [facility] [address] [id number] [place] [address]- 8748 Jan, [facility] [place] [facility] [address] [id number] [place] [address]- 5297 14 Jan, 2014 [facility] [place] [facility] [address] [id number] [place] [address]- 2581 Jan, [facility] [place] [facility] [address] [id number] [place] [address]- 0744 10 Jan, 2014 [facility] [place] [facility] [address] [id number] [place] [address]- 8032 Jan, [facility] [place] [facility] [address] [id number] [place] [address]- 3697 Dec, [facility] [place] [facility] [address] [id number] [place] [address]- 0027 17 Dec, 2013 [facility] [place] [facility] [address] [id number] [place] [address]- 8695 11 Dec, 2013 [facility] [place] [facility] [address] [id number] [place] [address]- 5722 11 Dec, 2013 [facility] [place] [facility] [address] [id number] [place] [address]- 4453 Dec, [facility] [place] [facility] [address] [id number] [place] [address]- 6225 10 Dec, 2013 [facility] [place] [facility] [address] [id number] [place] [address]- 3830 07 Dec, 2013 [facility] [place] [facility] [address] [id number] [place] [address]- 3826 Dec, [facility] [place] [facility] [address] [id number] [place] [address]- 8844 Dec, [facility] [place] [facility] [address] [id number] [place] [address]- 1024 Dec, [facility] [place] [facility] [address] [id number] [place] [address]- 3340 Oct, [facility] [place] [facility] [address] [id number] [place] [address] Oct, [facility] [place] [facility] [address] [id number] [place] [address]- 6738 Jul, [facility] [place] [facility] [address] [id number] [place] [address]- 5039 Jul, [facility] [place] [facility] [address] [id number] [place] [address]- 3540 Jul, [facility] [place] [facility] [address] [id number] [place] [address]- 3379 Jun, [facility] [place] [facility] [address] [id number] [place] [address]- 2311 Jun, [facility] [place] [facility] [address] [id number] [place] [address]- 0082 Jun, [facility] [place] [facility] [address] [id number], [place] [address]- 2086 Jun, [facility] [place] [facility] [address] [id number] [place] [address]- 0821 Apr, [facility] [place] [facility] [address] [id number] [place] [address]- 0417 February, [facility] [place] [facility] [address] [id number], [place] [address]- 5887 Nov, [facility] [place] [facility] [address] [id number] [place] [address]- 4261 14 Nov, 2012 [facility] [address] [id number] [place] [address]- 0736 14 Nov, 2012 [facility] [address] [id number] [place] [address]- 5196 Sep, [facility] [place] [facility] [address] [id number] [place] [address]- 6466 Sep, [facility] [address] [id number] [place] [address]- 1842 18 Sep, 2012 [facility] [address] [id number] [place] [address]- 8481 Sep, [facility] [address] [facility] [id number] [place] [address]- 8397 Sep, [facility] [address] [id number] [place] [address]- 9823 Sep, [facility] [address] [id number] [place] [address]- 3868 Sep, [facility] [address] [id number] [place] [address]- 9698 Sep, [facility] [place] [facility] [address] [id number] [place] [address]- 9579 Sep, [facility] [place] [facility] [address] [id number] [place] [address]- 9460 Sep, [facility] [place] [facility] [address] [id number] [place] [address]- 0577 Aug, [facility] [place] [facility] [address] [id number] [place] [address]- 3656 Aug, [facility] [place] [facility] [address] [id number] [place] [address]- 4532 Aug, [facility] [place] [facility] [address] [id number] [place] [address]- 5804 Aug, [facility] [place] [facility] [address] [id number] [place] [address]- 8213 Aug, [facility] [place] [facility] [address] [id number] [place] [address]- 8456 Jul, [facility] [place] [facility] [address] [id number] [place] [address]- 1514 Apr, [facility] [place] [facility] [address] [id number] [place] [address]- 8925 February, [facility] [place] [facility] [address] [id number] [place] [address]- 8522 Jan, [facility] [place] [facility] [address] [id number] [place] [address]- 2968 Jan, [facility] [place] [facility] [address] [id number] [place] [address]- 0011 Dec, [facility] [place] [facility] [address] [id number] [place] [address]- 7305 Dec, [facility] [place] [facility] [address] [id number] [place] [address]- 9165 Oct, [facility] [place] [facility] [address] [id number] [place] [address]- 9409 Oct, [facility] [place] [facility] [address] [id number], [place] [address]- 6176 February, [facility] [place] [facility] [address] [id number] [place] [address]- 8736 Sep, [facility] [place] [facility] [address] [id number] [place] [address]- 2340 Jul, [facility] [place] [facility] [address] [id number] [place] [address]- 5879 Jul, [facility] [place] [facility] [address] [id number] [place] [address]- 4898 Jul, [facility] [place] [facility] [address] [id number], [place] [address]- 9466 17 Jun, 2010 [facility] [address] [id number], [place] [address]- 2777 15 Sep, 2009 [facility] [id number] [address]- 7653 11 Sep, 2009 [facility] [address] [id number], [place] [address]- 7460 Sep, [facility] [address], [place] [address]- 2697 15 Jun, 2009 [facility] [address] [id number], [place] [address]- 6237 10 Dec, 2008 IMMUNIZATIONS No Known Immunizations SOCIAL HISTORY Never Assessed REASON FOR VISIT Culture PLAN OF CARE VITAL SIGNS MEDICATIONS Unknown Medications RESULTS No Results PROCEDURES No Known procedures INSTRUCTIONS MEDICATIONS ADMINISTERED No Known Medications MEDICAL (GENERAL) HISTORY Type Description Date Medical History diabetes type 1 Medical History hypertension Medical History asthma Medical History depression Surgical History 1985, 1988, 1991, 1994 Hospitalization History multiple
--- OUTSIDE RECORDS SUMMARY | 2018-08-18 00:04 | XMS REPORT ---
Author Author ALVA BENTLEY 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.4 Active 431534804 Problem Unspecified staphylococcus as the cause of diseases classified elsewhere B95.8 Active 77548340 Problem Local infection of the skin and subcutaneous tissue, unspecified L08.9 Active 355597560 Problem Anxiety state, unspecified F41.1 Active 886715120 Problem Essential hypertension I10 Active 39775917 Problem Migraine without status migrainosus, not intractable, unspecified migraine type G43.909 Active 47160052 Problem Depressive disorder, not elsewhere classified F32.9 Active 41123998 ALLERGIES Substance Reaction Event Type Date Status Metformin HCl Unknown Drug Allergy Sep, Active Ketorolac Tromethamine nausea Drug Allergy Sep, Active Hydrocodone Bitartrate Unknown Drug Allergy Sep, Active Biaxin Unknown Drug Allergy Sep, Active ENCOUNTERS Encounter Location Date Diagnosis [facility] [id number] [place] [address] 98375- 8873 Mar, Local infection of the skin and subcutaneous tissue, unspecified L08.9 ; Unspecified staphylococcus as the cause of diseases classified elsewhere B95.8 ; Type 2 diabetes mellitus with diabetic polyneuropathy E11.42 and terminal gauger current use of insulin Z79.4 [facility] [id number] [address] Mar, [facility] [id number] [address] February, Type 2 diabetes mellitus with diabetic polyneuropathy E11.42 ; residential current use of insulin Z79.4 ; Essential hypertension I10 ; Anxiety state, unspecified F41.1 ; Depressive disorder, not elsewhere classified F32.9 and Dysuria R30.0 [place] [id number] [place] [address] 10285- 4619 Jan, Type 2 diabetes mellitus with diabetic polyneuropathy E11.42 [place] [address] [address]- 4[address] Jan, Type 2 diabetes mellitus with diabetic polyneuropathy E11.42 [place] [address] [address]28- 5731 Jan, [facility] [place] [address] [address] Dec, Migraine without status migrainosus, not intractable, unspecified migraine type G43.909 [place] [address] 31393- 7852 Dec, Type 2 diabetes mellitus with diabetic polyneuropathy E11.42 ; residential current use of insulin Z79.4 ; Dog bite, subsequent encounter W54.0XXD and Essential hypertension I10 [facility] [place] [id number] [place] [address] 60397 -8129 Dec, Dog bite, initial encounter W54.0XXA [place] [id number] [place] [address] 45099- 7271 Dec, [place] [id number] [place] [address] 31038- 4440 Nov, [place] [address] [address]- [address] Oct, [facility] [place] [id number] [place] [address] 74974 -7305 Oct, Fissure in skin of foot R23.4 [place] [address] [place] [address] 4703 Oct, [facility] [id number] [place] [address] 64965- 2677 Oct, [facility] [id number] [place] [address] 03904- 5790 Oct, [place] [id number] [place] [address] 26359- 1323 Oct, Type 2 diabetes mellitus with diabetic polyneuropathy E11.42 [place] [id number] [place] [address] 40069- 6386 Oct, Anxiety state, unspecified F41.1 and Depressive disorder, not elsewhere classified F32.9 [place] [id number] [place] [address] 91456- 9442 Oct, [place] [id number] [place] [address] 31189- 4582 Oct, [place] [id number] [place] [address] 16907- 5163 Sep, Essential hypertension I10 [place] [id number] [place] [address] 31599- 9614 14 Sep, 2017 [place] [id number] [place] [address] 54095- 1331 13 Sep, 2017 Type 2 diabetes mellitus with diabetic polyneuropathy E11.42 and Neuropathic ulcer of foot, unspecified laterality, unspecified ulcer stage L97.509 [place] [id number] [place] [address] 16087- 5994 13 Sep, 2017 Neuropathic ulcer of foot, unspecified laterality, unspecified ulcer stage L97.509 and Acute vaginitis N76.0 [place] [id number] [place] [address] 59556- 2848 12 Sep, 2017 Type 2 diabetes mellitus with diabetic polyneuropathy E11.42 ; residential current use of insulin Z79.4 ; Essential hypertension I10 ; 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 ; Reactive depression F32.9 ; Acute vaginitis N76.0 and Mild intermittent asthma without complication J45.20 [facility] [id number] [place] [address] 089787- 7917 17 Jul, 2017 [facility] [id number] [place] [address] 21934 -1006 14 Jun, 2017 [facility] [id number] [place] [address] 05519- 2563 May, [facility] [id number] [place] [address] 82300 -4502 May, Cellulitis L03.90 [facility] [id number] [place] [address] 54574- 9426 Mar, [facility] [id number] [place] [address] 98507- 8847 Jan, [facility] [id number] [place] [address] 14753- 9939 Jan, [facility] [id number] [place] [address] 33543- 1626 Sep, [facility] [id number] [place] [address] 81160- 7708 Sep, [facility] [id number] [place] [address] 14243- 9385 Apr, [facility] [id number] [place] [address] 46420- 6161 Apr, [facility] [id number] [place] [address] 96937- 0815 Apr, [facility] [id number] [place] [address] 188318- 3457 Apr, [facility] [id number] [place] [address] 368023- 7634 Apr, [facility] [address] [place] [address]- 6530 Apr, [facility] [place] [facility] [address] [id number] [place] [address]- 5376 Apr, [facility] [place] [facility] [address] [id number] [place] [address]- 9569 Apr, [facility] [place] [facility] [address] [id number] [place] [address]- 0354 Mar, [facility] [place] [facility] [address] [id number] [place] [address]- 4504 Mar, [facility] [place] [facility] [address] [id number] [place] [address]- 7161 Mar, [facility] [place] [facility] [address] [id number] [place] [address]- 2981 Mar, [facility] [place] [facility] [address] [id number] [place] [address]- 4786 Mar, [facility] [place] [facility] [address] [id number] [place] [address]- 8036 Mar, [facility] [place] [facility] [address] [id number] [place] [address]- 2400 Mar, [facility] [place] [facility] [address] [id number] [place] [address]- 4754 Mar, [facility] [place] [facility] [address] [id number] [place] [address]- 8562 18 Mar, 2014 [facility] [place] [facility] [address] [id number] [place] [address]- 5167 18 Mar, 2014 [facility] [place] [facility] [address] [id number] [place] [address]- 0380 16 Mar, 2014 [facility] [place] [facility] [address] [id number] [place] [address]- 0359 15 Mar, 2014 [facility] [place] [facility] [address] [id number] [place] [address]- 8332 13 Mar, 2014 [facility] [place] [facility] [address] [id number] [place] [address]- 8444 13 Mar, 2014 [facility] [place] [facility] [address] [id number] [place] [address]- 4462 Mar, [facility] [place] [facility] [address] [id number] [place] [address]- 1892 Mar, [facility] [place] [facility] [address] [id number] [place] [address]- 8338 Mar, [facility] [place] [facility] [address] [id number] [place] [address]- 3351 Mar, [facility] [place] [facility] [address] [id number] [place] [address]- 4375 Mar, [facility] [place] [facility] [address] [id number] [place] [address]- 0653 February, [facility] [place] [facility] [address] [id number] [place] [address]- 9129 February, [facility] [place] [facility] [address] [id number] [place] [address]- 3690 Jan, [facility] [place] [facility] [address] [id number] [place] [address]- 9729 24 Jan, 2014 [facility] [place] [facility] [address] [id number] [place] [address]- 9702 Jan, [facility] [place] [facility] [address] [id number] [place] [address]- 3448 18 Jan, 2014 [facility] [place] [facility] [address] [id number] [place] [address]- 3797 17 Jan, 2014 [facility] [place] [facility] [address] [id number] [place] [address]- 1581 17 Jan, 2014 [facility] [place] [facility] [address] [id number] [place] [address]- 2824 14 Jan, 2014 [facility] [place] [facility] [address] [id number] [place] [address]- 2546 Jan, [facility] [place] [facility] [address] [id number] [place] [address]- 8403 Jan, [facility] [place] [facility] [address] [id number] [place] [address]- 9340 Jan, [facility] [place] [facility] [address] [id number] [place] [address]- 2118 17 Dec, 2013 [facility] [place] [facility] [address] [id number] [place] [address]- 3537 17 Dec, 2013 [facility] [place] [facility] [address] [id number] [place] [address]- 0616 Dec, [facility] [place] [facility] [address] [id number] [place] [address]- 6307 Dec, [facility] [place] [facility] [address] [id number] [place] [address]- 8641 Dec, [facility] [place] [facility] [address] [id number] [place] [address]- 2289 Dec, [facility] [place] [facility] [address] [id number] [place] [address]- 1227 Dec, [facility] [place] [facility] [address] [id number] [place] [address]- 5131 Dec, [facility] [place] [facility] [address] [id number] [place] [address]- 6005 Dec, [facility] [place] [facility] [address] [id number] [place] [address]- 1023 Dec, [facility] [place] [facility] [address] [id number] [place] [address]- 0009 Oct, [facility] [place] [facility] [address] [id number] [place] [address]- 1341 Oct, [facility] [place] [facility] [address] [id number] [place] [address]- 2863 Jul, [facility] [place] [facility] [address] [id number] [place] [address]- 1491 11 Jul, 2013 [facility] [address] [id number] [place] [address]- 5475 Jul, [facility] [address] [id number] [place] [address]- 4590 Jun, [facility] [address] [id number] [place] [address]- 9768 Jun, [facility] [address] [id number] [place] [address]- 1498 Jun, [facility] [address] [id number] [place] [address]- 7729 Jun, [facility] [address] [id number] [place] [address]- 6186 Apr, [facility] [address] [id number] [place] [address]- 5638 February, [facility] [address] [id number] [place] [address]- 6502 Nov, [facility] [address] [id number] [place] [address]- 3447 Nov, [facility] [address] [id number] [place] [address]- 6491 Nov, [facility] [address] [id number] [place] [address]- 5001 Sep, [facility] [address] [id number] [place] [address]- 3647 Sep, [facility] [address] [id number] [place] [address]- 6061 Sep, [facility] [address] [id number] [place] [address]- 5616 Sep, [facility] [address] [id number] [place] [address]- 0479 Sep, [facility] [place] [facility] [address] [id number] [place] [address]- 3855 Sep, [facility] [place] [facility] [address] [id number] [place] [address]- 5674 Sep, [facility] [place] [facility] [address] [id number] [place] [address]- 5690 Sep, [facility] [place] [facility] [address] [id number] [place] [address]- 0938 Sep, [facility] [place] [facility] [address] [id number] [place] [address]- 0785 Sep, [facility] [place] [facility] [address] [id number] [place] [address]- 5990 Aug, [facility] [place] [facility] [address] [id number] [place] [address]- 0322 Aug, [facility] [place] [facility] [address] [id number] [place] [address]- 5009 Aug, [facility] [place] [facility] [address] [id number] [place] [address]- 5918 Aug, [facility] [place] [facility] [address] [id number] [place] [address]- 9587 Aug, [facility] [place] [facility] [address] [id number], [place] [address]- 5266 Jul, [facility] [place] [facility] [address] [id number], [place] [address]- 2206 Apr, [facility] [place] [facility] [address] [id number] [place] [address]- 9373 February, [facility] [place] [facility] [address] [id number], [place] [address]- 2690 Jan, [facility] [place] [facility] [address] [id number] [place] [address]- 6034 Jan, [facility] [place] [facility] [id number], [place] [address]- 7396 14 Dec, 2011 [facility] [address], [place] [address]- 0516 06 Dec, 2011 [facility] [address] [address]- 9966 Oct, [facility] [address], [place] [address] 2546 Oct, [facility] [address], [place] [address]- 2971 13 Feb, 2011 [facility] [address], [place] [address]- 4346 Sep, [facility] [address] [address]- 0196 Jul, [facility] [address] [address]- 6794 13 Jul, 2010 [facility] [address], [place] [address]- 5825 13 Jul, 2010 [facility] [address], [place] [address]- 5984 17 Jun, 2010 [facility] [id number] [address]- 2744 15 Sep, 2009 [facility] [id number] [address]- 2693 Sep, [facility] [id number] [address]- 8663 09 Sep, 2009 [facility] [id number] [address]- 0622 15 Jun, 2009 [facility] [id number], [place] [address]- 6731 10 Dec, 2008 IMMUNIZATIONS No Known Immunizations SOCIAL HISTORY Never Assessed REASON FOR VISIT Establish Care, possible yeast infection, needs refills on medications, sick from not having insulin--Claudia Malik MA PLAN OF CARE Activity Details Follow Up 3 Months Reason: VITAL SIGNS Height 64 in 2017-09-23 Weight 224.1 lbs 2017-09-23 Temperature 98.9 degrees Fahrenheit 2017-09-23 Heart Rate 96 bpm 2017-09-23 Respiratory Rate 20 2017-09-23 BMI 38.46 kg/m2 2017-09-23 Blood pressure systolic 136 mmHg 2017-09-23 Blood pressure diastolic 74 mmHg 2017-09-23 MEDICATIONS Medication Instructions Dosage Frequency Start Date End Date Duration Status Levaquin 500 mg 1 tablet by Oral route every 24 hours for 7 days Jan Not-Taking Bactroban 2 % 1 linda by Topical route 2 times per day for 14 day(s) voucher Jan, Not-Taking Clindamycin HCl 150 mg 1 capsule by Oral route every 6 hours for 7 days Mar, Not-Taking Lorazepam 1 MG Orally twice a day, prnanxiety 1 Sep, 28 days Active Ventolin HFA 90 mcg/actuation inhale 2 puff by Inhalation route as needed every 4 hoursPRNfor breathing Sep, Active Lisinopril 20 MG Orally Once a day 1 tablet 24h Active Glucocard Expression Monitor w/Device as directed Sep, Active Pyridium 100 mg 1 tablet by Oral route 3 times per day for 3 day(s) Jan, Not-Taking Amoxicillin 500 mg SI cap(s) orally 2 times a day for 10 day(s) Oct, Not-Taking NovoLog Flexpen 100 UNIT/ML Not-Taking Flagyl 500 mg 1 tablet by Oral route 2 times per day for 7 days Apr Not-Taking Cipro 500 mg take 1 tablet (500 mg) by oral route every 12 hours for 10 days Jan, Not-Taking Metronidazole 500 mg 1 tablet by Oral route 2 times per day for 7 days Jul, Not-Taking Keflex 250 mg 2 capsule by Oral route 2 times per day for 10 days Aug, Not-Taking Glucocard Expression Test - as directed Sep, Active Levemir Flexpen 100 unit/mL (3 mL) subcutaneously Once a day 15 UnITS 24h Mar, Active Augmentin 875-125 mg 1 tablet by Oral route 2 times per day for 7 day(s) Dec, Not-Taking Diflucan 150 mg take 2 tablet by Oral route once 1 time per day for 3 days Apr, Not-Taking Metoclopramide HCl 10 MG Orally 3 times a day 0.5 tablet 8h Active Diflucan 150 MG 1 tablet Sep, 1 dose Active Ativan 2 MG Orally Once a day 1 tablet at bedtime as needed 24h Not-Taking Doxycycline Hyclate 100 mg take 1 tablet (100 mg) by oral route 2 times per day for 14 days Jul, Not-Taking Celexa 40 mg Orally Once a day 0.5 tablet 24h Active Humalog KwikPen 100 unit/mL Subcutaneous 3 times a day inject 15 UnITS by Subcutaneous route as per insulin sliding scale protocol 3 times per day BEFORE MEALS 8h Mar, Active Metoprolol Succinate ER 25 MG Orally Once a day 1 tablet 24h Active RESULTS No Results PROCEDURES Procedure Date Ordered Result Body Site GLYCATED HEMOGLOBIN TEST Sep 23, 2017 COMPREHEN METABOLIC PANEL Sep 23, 2017 VENIPUNCT, ROUTINE* Sep 23, 2017 INSTRUCTIONS MEDICATIONS ADMINISTERED No Known Medications MEDICAL (GENERAL) HISTORY Type Description Date Medical History diabetes type 1 Medical History hypertension Medical History asthma Medical History depression Medical History Diabetic Macular Edema Surgical History 1985, 1988, 1991, 1994 Hospitalization History multiple
--- OUTSIDE RECORDS SUMMARY | 2018-08-18 00:04 | XMS REPORT ---
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.4 Active 330049640 Problem Unspecified staphylococcus as the cause of diseases classified elsewhere B95.8 Active 03099322 Problem Local infection of the skin and subcutaneous tissue, unspecified L08.9 Active 562621207 Problem Anxiety state, unspecified F41.1 Active 003838128 Problem Essential hypertension I10 Active 99772075 Problem Migraine without status migrainosus, not intractable, unspecified migraine type G43.909 Active 77454159 Problem Depressive disorder, not elsewhere classified F32.9 Active 06776311 ALLERGIES No Information ENCOUNTERS Encounter Location Date Diagnosis [facility] [facility] [id number], [place] [address] Mar, Local infection of the skin and subcutaneous tissue, unspecified L08.9 ; Unspecified staphylococcus as the cause of diseases classified elsewhere B95.8 ; Type 2 diabetes mellitus with diabetic polyneuropathy E11.42 and FCI current use of insulin Z79.4 [facility] [address] [facility] [id number] [address] Mar, [facility] [id number] [place] [address] February, Type 2 diabetes mellitus with diabetic polyneuropathy E11.42 ; terminal gauger current use of insulin Z79.4 ; Essential hypertension I10 ; Anxiety state, unspecified F41.1 ; Depressive disorder, not elsewhere classified F32.9 and Dysuria R30.0 [facility] [id number] [place] [address]- 0470 Jan, Type 2 diabetes mellitus with diabetic polyneuropathy E11.42 [facility] [id number] [place] [address] 56369- 5484 Jan, Type 2 diabetes mellitus with diabetic polyneuropathy E11.42 [facility] [facility] [address] [address] Jan, [facility] [address] [address] Dec, Migraine without status migrainosus, not intractable, unspecified migraine type G43.909 [place] [id number] [place] [address] 65887- 2435 Dec, Type 2 diabetes mellitus with diabetic polyneuropathy E11.42 ; FCI current use of insulin Z79.4 ; Dog bite, subsequent encounter W54.0XXD and Essential hypertension I10 [facility] [id number] [place] [address] Dec, Dog bite, initial encounter W54.0XXA [facility] [id number] [place] [address]67- 2590 Dec, [facility] [id number] [place] [address] 13900- 7042 Nov, [facility] [id number] [place] [address] 93926- 4150 Oct, [facility] [id number] [place] [address]93 Oct, Fissure in skin of foot R23.4 [facility] [id number] [place] [address] 04187- 8168 Oct, [facility] [address] [address] Oct, [place] [id number] [place] [address] 6[address]- 5630 Oct, [place] [id number] [place] [address]661- 6577 Oct, Type 2 diabetes mellitus with diabetic polyneuropathy E11.42 [facility] [id number] [place] [address] 65455- 0778 Oct, Anxiety state, unspecified F41.1 and Depressive disorder, not elsewhere classified F32.9 [facility] [id number] [place] [address] 94296- 3173 Oct, [place] [id number] [place] [address] 64357- 1307 Oct, [facility] [id number] [place] [address] 10230- 9481 Sep, Essential hypertension I10 [place] [id number] [place] [address]20- 3130 14 Sep, 2017 [place] [id number] [place] [address] 20019- 2823 13 Sep, 2017 Type 2 diabetes mellitus with diabetic polyneuropathy E11.42 and Neuropathic ulcer of foot, unspecified laterality, unspecified ulcer stage L97.509 [place] [id number] [place] [address] 12762- 5837 13 Sep, 2017 Neuropathic ulcer of foot, unspecified laterality, unspecified ulcer stage L97.509 and Acute vaginitis N76.0 [place] [id number] [place] [address] 80774- 3173 12 Sep, 2017 Type 2 diabetes mellitus with diabetic polyneuropathy E11.42 ; FCI current use of insulin Z79.4 ; Essential hypertension I10 ; 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 ; Reactive depression F32.9 ; Acute vaginitis N76.0 and Mild intermittent asthma without complication J45.20 [facility] [id number] [place] [address] 76227- 7006 Jul, [facility] [address] [id number] [place] [address] Jun, [facility] [address] [id number] [place] [address] 1321 May, [facility] [address] [facility] [id number] [place] [address] May, Cellulitis L03.90 [facility] [address] [id number] [place] [address]- 2966 Mar, [facility] [address] [id number] [place] [address]- 0883 Jan, [facility] [address] [facility] [id number] [place] [address]- 1415 Jan, [facility] [address] [facility] [id number] [place] [address]- 7996 Sep, [facility] [address] [facility] [id number] [place] [address]- 2941 Sep, [facility] [address] [facility] [id number] [place] [address]- 7288 Apr, [facility] [address] [facility] [id number] [place] [address]- 5167 Apr, [facility] [address] [facility] [id number] [place] [address]- 4148 Apr, [facility] [address] [id number] [place] [address]- 5307 Apr, [facility] [address] [facility] [id number] [place] [address] Apr, [facility] [address] [facility] [id number] [place] [address]- 1938 Apr, [facility] [address] [facility] [id number] [place] [address] Apr, [facility] [place] [facility] [address] [id number] [place] [address]- 8915 Apr, [facility] [place] [facility] [address] [id number] [place] [address]- 6400 Mar, [facility] [place] [facility] [address] [id number] [place] [address]- 8870 Mar, [facility] [place] [facility] [address] [id number] [place] [address]- 4998 Mar, [facility] [place] [facility] [address] [id number] [place] [address]- 2447 Mar, [facility] [place] [facility] [address] [id number] [place] [address]- 1496 Mar, [facility] [place] [facility] [address] [id number] [place] [address]- 2346 Mar, [facility] [place] [facility] [address] [id number] [place] [address]- 5276 Mar, [facility] [place] [facility] [address] [id number] [place] [address]- 7512 Mar, [facility] [place] [facility] [address] [id number] [place] [address]- 4814 Mar, [facility] [place] [facility] [address] [id number] [place] [address]- 5444 18 Mar, 2014 [facility] [place] [facility] [address] [id number] [place] [address]- 4019 16 Mar, 2014 [facility] [place] [facility] [address] [id number] [place] [address]- 2240 15 Mar, 2014 [facility] [place] [facility] [address] [id number] [place] [address]- 4502 13 Mar, 2014 [facility] [place] [facility] [address] [id number] [place] [address]- 1737 13 Mar, 2014 [facility] [place] [facility] [address] [id number] [place] [address]- 8239 Mar, [facility] [place] [facility] [address] [id number] [place] [address]- 2666 Mar, [facility] [place] [facility] [address] [id number] [place] [address]- 0021 Mar, [facility] [place] [facility] [address] [id number] [place] [address]- 2166 Mar, [facility] [place] [facility] [address] [id number] [place] [address]- 3555 Mar, [facility] [place] [facility] [address] [id number] [place] [address]- 0017 February, [facility] [place] [facility] [address] [id number] [place] [address]- 6359 February, [facility] [place] [facility] [address] [id number] [place] [address]- 5405 Jan, [facility] [place] [facility] [address] [id number] [place] [address]- 9703 24 Jan, 2014 [facility] [place] [facility] [address] [id number] [place] [address]- 8219 Jan, [facility] [place] [facility] [address] [id number] [place] [address]- 2310 Jan, [facility] [place] [facility] [address] [id number] [place] [address]- 0679 17 Jan, 2014 [facility] [place] [facility] [address] [id number] [place] [address]- 8268 17 Jan, 2014 [facility] [place] [facility] [address] [id number] [place] [address]- 7136 14 Jan, 2014 [facility] [place] [facility] [address] [id number] [place] [address]- 2146 11 Jan, 2014 [facility] [place] [facility] [address] [id number] [place] [address]- 7700 10 Jan, 2014 [facility] [place] [facility] [address] [id number] [place] [address]- 8404 10 Jan, 2014 [facility] [place] [facility] [address] [id number] [place] [address]- 0309 17 Dec, 2013 [facility] [place] [facility] [address] [id number] [place] [address]- 2546 17 Dec, 2013 [facility] [place] [facility] [address] [id number] [place] [address]- 0664 11 Dec, 2013 [facility] [place] [facility] [address] [id number] [place] [address]- 0739 11 Dec, 2013 [facility] [place] [facility] [address] [id number] [place] [address]- 4534 Dec, [facility] [place] [facility] [address] [id number] [place] [address]- 4367 Dec, [facility] [place] [facility] [address] [id number] [place] [address]- 5751 07 Dec, 2013 [facility] [place] [facility] [address] [id number] [place] [address]- 7912 07 Dec, 2013 [facility] [place] [facility] [address] [id number] [place] [address]- 2260 Dec, [facility] [place] [facility] [address] [id number] [place] [address]- 4883 Dec, [facility] [place] [facility] [address] [id number] [place] [address]- 2963 Oct, [facility] [place] [facility] [address] [id number] [place] [address]- 6776 Oct, [facility] [place] [facility] [address] [id number] [place] [address]- 5896 Jul, [facility] [place] [facility] [address] [id number] [place] [address]- 2546 Jul, [facility] [place] [facility] [address] [id number] [place] [address]- 1956 08 Jul, 2013 [facility] [address] [id number] [place] [address]- 4759 27 Jun, 2013 [facility] [address] [id number] [place] [address]- 1028 26 Jun, 2013 [facility] [address] [id number] [place] [address]- 0426 25 Jun, 2013 [facility] [place] [facility] [address] [id number] [place] [address]- 8539 24 Jun, 2013 [facility] [address] [id number] [place] [address]- 7477 Apr, [facility] [place] [facility] [address] [id number] [place] [address]- 9789 February, [facility] [address] [id number] [place] [address]- 1795 Nov, [facility] [address] [id number] [place] [address]- 6378 Nov, [facility] [address] [id number] [place] [address]- 9218 Nov, [facility] [address] [facility] [id number] [place] [address]- 3237 Sep, [facility] [address] [id number] [place] [address]- 1078 Sep, [facility] [place] [facility] [address] [id number], [place] [address]- 5407 18 Sep, 2012 [facility] [place] [facility] [address] [id number] [place] [address]- 7005 Sep, [facility] [place] [facility] [address] [id number] [place] [address]- 4182 Sep, [facility] [place] [facility] [address] [id number] [place] [address]- 5987 Sep, [facility] [place] [facility] [address] [id number] [place] [address]- 2038 07 Sep, 2012 [facility] [address] [id number] [place] [address]- 9527 Sep, [facility] [place] [facility] [address] [id number] [place] [address]- 1306 Sep, [facility] [place] [facility] [address] [id number] [place] [address]- 8696 Sep, [facility] [place] [facility] [address] [id number] [place] [address]- 9726 Aug, [facility] [place] [facility] [address] [id number] [place] [address]- 9699 Aug, [facility] [place] [facility] [address] [id number] [place] [address]- 8207 Aug, [facility] [place] [facility] [address] [id number] [place] [address]- 2702 Aug, [facility] [place] [facility] [address] [id number] [place] [address]- 5770 Aug, [facility] [place] [facility] [address] [id number] [place] [address]- 5697 Jul, [facility] [place] [facility] [address] [id number] [place] [address]- 8338 Apr, [facility] [place] [facility] [address] [id number] [place] [address]- 4002 February, [facility] [place] [facility] [address] [id number] [place] [address]- 6802 Jan, [facility] [place] [facility] [address] [id number] [place] [address]- 3761 Jan, [facility] [place] [facility] [address] [id number] [place] [address]- 9597 Dec, [facility] [place] [facility] [address] [id number] [place] [address]- 6239 Dec, [facility] [address] [facility] [id number], [place] [address] 2546 Oct, [facility] [address] [facility] [id number], [place] [address] 2546 Oct, [facility] [address] [facility] [id number], [place] [address]- 2546 February, [facility] [address] [facility] [id number], [place] [address] 2546 Sep, [facility] [address] [facility] [id number], [place] [address]- 9077 Jul, [facility] [address] [facility] [id number], [place] [address]- 0146 Jul, [facility] [address], [place] [address]- 9296 Jul, [facility] [address], [place] [address]- 2456 Jun, [facility] [address], [place] [address]- 4746 Sep, [facility] [address], [place] [address]- 4646 Sep, [facility] [id number] [address]- 2996 Sep, [facility] [id number] [address]- 7076 Jun, [facility] [id number] [address]- 0568 Dec, IMMUNIZATIONS No Known Immunizations SOCIAL HISTORY Never Assessed REASON FOR VISIT Critical high PLAN OF CARE VITAL SIGNS MEDICATIONS Medication Instructions Dosage Frequency Start Date End Date Duration Status Lyrica 150 MG Orally Three times a day 1 capsule 8h 13 Sep, 2017 Active Diflucan 150 MG Orally Once a day 1 tablet 24h Sep, Active RESULTS No Results PROCEDURES No Known procedures INSTRUCTIONS MEDICATIONS ADMINISTERED No Known Medications MEDICAL (GENERAL) HISTORY Type Description Date Medical History diabetes type 1 Medical History hypertension Medical History asthma Medical History depression Medical History Diabetic Macular Edema Surgical History 1985, 1988, 1991, 1994 Hospitalization History multiple
--- OUTSIDE RECORDS SUMMARY | 2018-08-18 00:05 | XMS REPORT ---
Author Author MARCELO JUNE [facility] Address [address] [place] [address] Care Team Providers Care Production Planner Name Role Phone SLADE MARCELO Unavailable PROBLEMS Type Condition ICD9-CM Code [id number] Code Onset Dates Condition Status SNOMED Code Problem senior care current use of insulin Z79.4 Active 978239599 Problem Mild intermittent asthma without complication J45.20 Active 526319363 Problem Migraine without status migrainosus, not intractable, unspecified migraine type G43.909 Active 47047230 Problem Depressive disorder, not elsewhere classified F32.9 Active 14450393 Problem Type 2 diabetes mellitus with diabetic polyneuropathy E11.42 Active 71260061 Problem 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 Active 437997104 Problem Anxiety state, unspecified F41.1 Active 007829302 Problem Essential hypertension I10 Active 97683452 ALLERGIES No Information ENCOUNTERS Encounter Location Date Diagnosis [facility] [address] [address] Dec, Migraine without status migrainosus, not intractable, unspecified migraine type G43.909 [facility] [id number] [place] [address]- [address] Dec, Type 2 diabetes mellitus with diabetic polyneuropathy E11.42 ; 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 ; Dog bite, subsequent encounter W54.0XXD and Essential hypertension I10 [facility] [id number] [place] [address] Dec, Dog bite, initial encounter W54.0XXA [facility] [id number] [place] [address]20- 6480 Dec, [facility] [address] [address] Nov, [facility] [id number] [place] [address]1468- 3496 Oct, [facility] [id number] [place] [address] -[address]52 Oct, Fissure in skin of foot R23.4 [facility] [id number] [place] [address] 83758- 0014 Oct, [facility] [id number] [place] [address] 54247- 2636 Oct, [facility] [id number] [place] [address] 79235- 4490 Oct, [facility] [id number] [place] [address] 05884- 7571 Oct, Type 2 diabetes mellitus with diabetic polyneuropathy E11.42 [facility] [id number] [place] [address] 07062- 7029 Oct, Anxiety state, unspecified F41.1 and Depressive disorder, not elsewhere classified F32.9 [facility] [id number] [place] [address] 82710- 7070 Oct, [facility] [id number] [place] [address] 83470- 6001 Oct, [facility] [id number] [place] [address] 78018- 5126 Sep, Essential hypertension I10 [facility] [id number] [place] [address] 08748- 9436 Sep, [facility] [id number] [place] [address] 74193- 7095 Sep, Type 2 diabetes mellitus with diabetic polyneuropathy E11.42 and Neuropathic ulcer of foot, unspecified laterality, unspecified ulcer stage L97.509 [facility] [id number] [place] [address] 20014- 3789 Sep, Neuropathic ulcer of foot, unspecified laterality, unspecified ulcer stage L97.509 and Acute vaginitis N76.0 [facility] [id number] [place] [address] 174056- 1540 Sep, Type 2 diabetes mellitus with diabetic polyneuropathy E11.42 ; senior care current use of insulin Z79.4 ; Essential hypertension I10 ; 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 ; Reactive depression F32.9 ; Acute vaginitis N76.0 and Mild intermittent asthma without complication J45.20 [facility] [id number] [place] [address] 65027- 5310 17 Jul, 2017 [facility] [id number] [place] [address] 95500 -7230 Jun, [facility] [id number] [place] [address] 60326- 5259 May, [facility] [id number] [place] [address] 04690 -3064 May, Cellulitis L03.90 [facility] [id number] [place] [address] 45439- 9751 Mar, [facility] [id number] [place] [address] 23130- 9694 Jan, [facility] [id number] [place] [address] 20037- 2907 Jan, [facility] [id number] [place] [address] 94862- 9850 Sep, [facility] [id number] [place] [address] 53610- 3218 Sep, [facility] [id number] [place] [address] 100888- 8068 Apr, [facility] [id number] [place] [address] 114683- 6511 Apr, [facility] [id number] [place] [address]- [address] 15 Apr, 2013 [facility] [place] [facility] [address] [id number] [place] [address]- 8787 15 Apr, 2013 [facility] [place] [facility] [address] [id number] [place] [address]- 9176 Apr, 2013 [facility] [place] [facility] [address] [id number] [place] [address]- 4737 Apr, 2013 [facility] [place] [facility] [address] [id number] [place] [address]- 8623 Apr, [facility] [place] [facility] [address] [id number] [place] [address]- 9513 Apr, [facility] [place] [facility] [address] [id number] [place] [address]- 1480 Mar, [facility] [place] [facility] [address] [id number] [place] [address]- 0189 Mar, [facility] [place] [facility] [address] [id number] [place] [address]- 2869 Mar, [facility] [place] [facility] [address] [id number] [place] [address]- 9955 Mar, [facility] [place] [facility] [address] [id number] [place] [address]- 7415 Mar, [facility] [place] [facility] [address] [id number] [place] [address]- 8848 Mar, [facility] [place] [facility] [address] [id number] [place] [address]- 6977 Mar, [facility] [place] [facility] [address] [id number] [place] [address]- 1471 Mar, [facility] [place] [facility] [address] [id number] [place] [address]- 4957 Mar, [facility] [place] [facility] [address] [id number] [place] [address]- 9236 Mar, [facility] [place] [facility] [address] [id number] [place] [address]- 8037 16 Mar, 2014 [facility] [place] [facility] [address] [id number] [place] [address]- 6846 15 Mar, 2014 [facility] [place] [facility] [address] [id number] [place] [address]- 3003 13 Mar, 2014 [facility] [place] [facility] [address] [id number] [place] [address]- 8943 Mar, [facility] [place] [facility] [address] [id number] [place] [address]- 8262 Mar, [facility] [place] [facility] [address] [id number] [place] [address]- 6343 Mar, [facility] [place] [facility] [address] [id number] [place] [address]- 8536 Mar, [facility] [place] [facility] [address] [id number] [place] [address]- 9581 Mar, [facility] [place] [facility] [address] [id number] [place] [address]- 7082 Mar, [facility] [place] [facility] [address] [id number] [place] [address]- 7558 February, [facility] [place] [facility] [address] [id number] [place] [address]- 8997 February, [facility] [place] [facility] [address] [id number] [place] [address]- 9033 Jan, [facility] [place] [facility] [address] [id number] [place] [address]- 5215 Jan, [facility] [place] [facility] [address] [id number] [place] [address]- 9011 Jan, [facility] [place] [facility] [address] [id number] [place] [address]- 2149 Jan, [facility] [place] [facility] [address] [id number] [place] [address]- 9462 17 Jan, 2014 [facility] [place] [facility] [address] [id number] [place] [address]- 9364 17 Jan, 2014 [facility] [place] [facility] [address] [id number] [place] [address]- 6650 14 Jan, 2014 [facility] [place] [facility] [address] [id number] [place] [address]- 4288 11 Jan, 2014 [facility] [place] [facility] [address] [id number] [place] [address]- 9809 10 Jan, 2014 [facility] [place] [facility] [address] [id number] [place] [address]- 8449 10 Jan, 2014 [facility] [place] [facility] [address] [id number] [place] [address]- 7467 17 Dec, 2013 [facility] [place] [facility] [address] [id number] [place] [address]- 0359 Dec, [facility] [place] [facility] [address] [id number] [place] [address]- 7580 Dec, [facility] [place] [facility] [address] [id number] [place] [address]- 4316 Dec, [facility] [place] [facility] [address] [id number] [place] [address]- 9683 Dec, [facility] [place] [facility] [address] [id number] [place] [address]- 6750 Dec, [facility] [place] [facility] [address] [id number] [place] [address]- 4717 Dec, [facility] [place] [facility] [address] [id number] [place] [address]- 8600 07 Dec, 2013 [facility] [place] [facility] [address] [id number] [place] [address]- 9336 03 Dec, 2013 [facility] [place] [facility] [address] [id number] [place] [address]- 5523 Dec, [facility] [place] [facility] [address] [id number] [place] [address]- 6584 Oct, [facility] [place] [facility] [address] [id number] [place] [address]- 0643 Oct, [facility] [place] [facility] [address] [id number] [place] [address]- 4036 Jul, [facility] [place] [facility] [address] [id number] [place] [address]- 8261 Jul, [facility] [place] [facility] [address] [id number] [place] [address]- 4686 Jul, [facility] [place] [facility] [address] [id number] [place] [address]- 6520 Jun, [facility] [place] [facility] [address] [id number] [place] [address]- 2189 Jun, [facility] [place] [facility] [address] [id number] [place] [address]- 3065 Jun, [facility] [place] [facility] [address] [id number] [place] [address]- 5475 Jun, [facility] [place] [facility] [address] [id number] [place] [address]- 0156 Apr, [facility] [place] [facility] [address] [id number] [place] [address]- 2046 February, [facility] [place] [facility] [address] [id number] [place] [address]- 0709 Nov, [facility] [place] [facility] [address] [id number] [place] [address]- 0026 Nov, [facility] [place] [facility] [address] [id number] [place] [address]- 8456 Nov, [facility] [place] [facility] [address] [id number] [place] [address]- 3535 Sep, [facility] [place] [facility] [address] [id number] [place] [address]- 0796 Sep, [facility] [place] [facility] [address] [id number] [place] [address]- 8798 Sep, [facility] [place] [facility] [address] [id number] [place] [address]- 9400 Sep, [facility] [place] [facility] [address] [facility] [id number] [place] 7156 Sep, [facility] [place] [facility] [address] [id number] [place] [address]- 0495 Sep, [facility] [place] [facility] [address] [id number] [place] [address]- 4204 Sep, [facility] [place] [facility] [address] [id number] [place] [address]- 5198 Sep, [facility] [place] [facility] [address] [id number] [place] [address]- 1449 Sep, [facility] [place] [facility] [address] [id number] [place] [address]- 6407 Sep, [facility] [place] [facility] [address] [id number] [place] [address]- 1489 Aug, [facility] [place] [facility] [address] [id number] [place] [address]- 8846 Aug, [facility] [place] [facility] [address] [id number] [place] [address]- 0232 Aug, [facility] [place] [facility] [address] [id number] [place] [address]- 0274 Aug, [facility] [place] [facility] [address] [id number] [place] [address]- 3280 Aug, [facility] [place] [facility] [address] [facility] [id number] [place] [address]- 6408 Jul, [facility] [place] [facility] [address] [facility] [id number] [place] [address]- 2146 Apr, [facility] [place] [facility] [address] [id number] [place] [address] 2546 February, [facility] [address] [id number] [place] [address]- 7394 Jan, [facility] [address] [id number] [place] [address]- 4186 Jan, [facility] [address] [id number] [place] [address]- 0310 Dec, [facility] [address] [id number] [place] [address]- 2546 Dec, [facility] [address] [id number] [place] [address], [place] [address]- 8860 Oct, [facility] [address] [id number] [place] [address]- 9496 Oct, [facility] [address] [facility] [id number] [place] [address]- 4196 February, [facility] [address] [id number] [place] [address]- 5379 Sep, [facility] [address] [id number] [place] [address]- 1338 Jul, [facility] [address] [facility] [id number] [place] [address]- 3172 Jul, [facility] [address] [id number] [place] [address]- 7280 13 Jul, 2010 [facility] [address] [id number] [place] [address] 2548 17 Jun, 2010 [facility] [address] [id number] [place] [address]- 6266 15 Sep, 2009 [facility] [address] [id number] [place] [address]- 2546 Sep, [facility] [address] [facility] [id number] [place] [address]- 8404 Sep, [facility] [address] [facility] [id number] [place] [address] [address]24 Jun, [facility] [address] [facility] [id number] [place] 3725 Dec, IMMUNIZATIONS No Known Immunizations SOCIAL HISTORY Never Assessed REASON FOR VISIT Eye Exam PLAN OF CARE VITAL SIGNS MEDICATIONS No Known Medications RESULTS No Results PROCEDURES No Known procedures INSTRUCTIONS MEDICATIONS ADMINISTERED No Known Medications MEDICAL (GENERAL) HISTORY Type Description Date Medical History diabetes type 1 Medical History hypertension Medical History asthma Medical History depression Surgical History 1985, 1988, 1991, 1994 Hospitalization History multiple
--- OUTSIDE RECORDS SUMMARY | 2018-08-18 00:06 | XMS REPORT | Continuity of Care Document ---
Author Author [facility] Address Unknown Phone Unavailable Allergies Active Description Code Type Severity Reaction Onset Reported/Identified Relationship to Patient Clinical Status Yes albuterol Drug Allergy N/A N/A 12/20/2008 Yes Bactrim Drug Allergy N/A N/A 12/20/2008 Yes Biaxin Drug Allergy N/A N/A 12/20/2008 Yes metformin Drug Allergy N/A N/A 12/20/2008 Yes Percocet Drug Allergy N/A N/A 12/20/2008 Yes albuterol Drug Allergy 12/20/2008 Yes Bactrim Drug Allergy 12/20/2008 Yes Biaxin Drug Allergy 12/20/2008 Yes metformin Drug Allergy 12/20/2008 Yes Percocet Drug Allergy 12/20/2008 Yes Amaryl Drug Allergy N/A N/A 01/05/2009 Yes insulin glargine Drug Allergy N/A N/A 01/05/2009 Yes Amaryl Drug Allergy 01/05/2009 Yes insulin glargine Drug Allergy 01/05/2009 Yes clarithromycin [id number] Drug Allergy Unknown N/A 08/17/2018 Yes hydrocodone [id number] Drug Allergy Unknown N/A 08/17/2018 Medications There is no data. Problems Date Dx Coded Attending Type Code Diagnosis Diagnosed By 12/20/2008 ALVA BENTLEY MD 250.02 DIABETES MELLITUS POORLY CONTROLLED 12/20/2008 ALVA BENTLEY MD 401.1 HYPERTENSION, BENIGN ESSENTIAL 12/20/2008 ALVA BENTLEY MD 493.90 ASTHMA UNSPECIFIED 12/20/2008 250.02 DIABETES MELLITUS POORLY CONTROLLED 12/20/2008 401.1 HYPERTENSION, BENIGN ESSENTIAL 12/20/2008 493.90 ASTHMA UNSPECIFIED 12/20/2008 AVLA BENTLEY MD 250.02 DIABETES MELLITUS POORLY CONTROLLED 12/20/2008 ALVA BENTLEY MD 401.1 HYPERTENSION, BENIGN ESSENTIAL 12/20/2008 ALVA BENTLEY MD 493.90 ASTHMA UNSPECIFIED 12/20/2008 JUNE DO, MARCELO K 250.02 DIABETES MELLITUS POORLY CONTROLLED 12/20/2008 JUNE DO, MARCELO K 401.1 HYPERTENSION, BENIGN ESSENTIAL 12/20/2008 JUNE DO, MARCELO K 493.90 ASTHMA UNSPECIFIED 12/20/2008 ROMIE MARTINEZ, MARIBELL Casarez 250.02 DIABETES MELLITUS POORLY CONTROLLED 12/20/2008 ROMIE MARTINEZ, MARIBELL Casarez 401.1 HYPERTENSION, BENIGN ESSENTIAL 12/20/2008 ROMIE MARTINEZ, MARIBELL Casarez 493.90 ASTHMA UNSPECIFIED 12/20/2008 ROMIE MARTINEZ, MARIBELL Casarez 250.02 DIABETES MELLITUS TYPE 2 - UNCOMPLICATED, UNCONTROLLED 12/20/2008 ROMIE MARTINEZ, MARIBELL Casarez 401.1 HYPERTENSION, BENIGN ESSENTIAL 12/20/2008 ROMIE MARTINEZ, MARIBELL Casarez 493.90 ASTHMA UNSPECIFIED 12/20/2008 JUNE DO, MARCELO K 250.02 DIABETES MELLITUS TYPE 2 - UNCOMPLICATED, UNCONTROLLED 12/20/2008 JUNE DO, MARCELO K 401.1 HYPERTENSION, BENIGN ESSENTIAL 12/20/2008 JUNE DO, MARCELO K 493.90 ASTHMA UNSPECIFIED 12/20/2008 JUNE DO, MARCELO K 250.02 DIABETES MELLITUS TYPE 2 - UNCOMPLICATED, UNCONTROLLED 12/20/2008 JUEN DO, MARCELO K 401.1 HYPERTENSION, BENIGN ESSENTIAL 12/20/2008 JUNE DO, MARCELO K 493.90 ASTHMA UNSPECIFIED 12/20/2008 MADL DICTATING MACHINE TRANSCRIBER, ALVARO L 250.02 DIABETES MELLITUS TYPE 2 - UNCOMPLICATED, UNCONTROLLED 12/20/2008 MADL DICTATING MACHINE TRANSCRIBER, ALVARO L 401.1 HYPERTENSION, BENIGN ESSENTIAL 12/20/2008 MADL DICTATING MACHINE TRANSCRIBER, ALAVRO L 493.90 ASTHMA UNSPECIFIED 12/20/2008 MADL DICTATING MACHINE TRANSCRIBER, ALVARO L 250.02 DIABETES MELLITUS TYPE 2 - UNCOMPLICATED, UNCONTROLLED 12/20/2008 MADL DICTATING MACHINE TRANSCRIBER, ALVARO L 401.1 HYPERTENSION, BENIGN ESSENTIAL 12/20/2008 MADL DICTATING MACHINE TRANSCRIBER, ALVARO L 493.90 ASTHMA UNSPECIFIED 12/20/2008 JUNE DO, MARCELO K 250.02 DIABETES MELLITUS TYPE 2 - UNCOMPLICATED, UNCONTROLLED 12/20/2008 JUNE DO, MARCELO K 401.1 HYPERTENSION, BENIGN ESSENTIAL 12/20/2008 JUNE DO, MARCELO K 493.90 ASTHMA UNSPECIFIED 01/05/2009 SHEREE MARTINEZ, ALVA V15.81 noncompliance with therapy 01/05/2009 V15.81 noncompliance with therapy 01/05/2009 ALVA BENTLEY MD V15.81 Noncompliance With Therapy 01/05/2009 MARCELO JUNE DO K V15.81 Noncompliance With Therapy 01/05/2009 MARIBELL GRUBBS MD V15.81 Noncompliance With Therapy 01/05/2009 MARIBELL GRUBBS MD V15.81 Noncompliance With Therapy 01/05/2009 MARCELO JUNE DO K V15.81 Noncompliance With Therapy 01/05/2009 ROVERTO JUNE DOA K V15.81 Noncompliance With Therapy 01/05/2009 FABIANA DICTATING MACHINE TRANSCRIBERALVARO Terry L V15.81 Noncompliance With Therapy 01/05/2009 ALVARO JUNG APRN L V15.81 Noncompliance With Therapy 01/05/2009 MARCELO JUNE DO K V15.81 Noncompliance With Therapy 04/06/2009 ALVA BENTLEY MD 300.00 ANXIETY DISORDER NOS 04/06/2009 ALVA BENTLEY MD 401.9 ESSENTIAL HYPERTENSION 04/06/2009 ALVA BENTLEY MD 780.79 feeling tired or poorly 04/06/2009 ALVA BENTLEY MD 786.05 shortness of breath 04/06/2009 300.00 ANXIETY DISORDER NOS 04/06/2009 401.9 ESSENTIAL HYPERTENSION 04/06/2009 780.79 feeling tired or poorly 04/06/2009 786.05 shortness of breath 04/06/2009 ALVA BENTLEY MD 300.00 ANXIETY DISORDER NOS 04/06/2009 ALVA BENTLEY MD 401.9 ESSENTIAL HYPERTENSION 04/06/2009 ALVA BENTLEY MD 780.79 Feeling Tired Or Poorly 04/06/2009 ALVA BENTLEY MD 786.05 Shortness Of Breath 04/06/2009 ROVERTO JUNE DOA K 300.00 ANXIETY DISORDER NOS 04/06/2009 JUNE DO MARCELO K 401.9 ESSENTIAL HYPERTENSION 04/06/2009 ROVERTO JUNE DOA K 780.79 Feeling Tired Or Poorly 04/06/2009 JUNE DO MARCELO K 786.05 Shortness Of Breath 04/06/2009 MARIBELL GRUBBS MD 300.00 ANXIETY DISORDER NOS 04/06/2009 MARIBELL GRUBBS MD 401.9 ESSENTIAL HYPERTENSION 04/06/2009 MARIBELL GRUBBS MD 780.79 Feeling Tired Or Poorly 04/06/2009 MARIBELL GRUBBS MD 786.05 Shortness Of Breath 04/06/2009 MARIBELL GRUBBS MD 300.00 anxiety 04/06/2009 MARIBELL GRUBBS MD 401.9 ESSENTIAL HYPERTENSION 04/06/2009 MARIBELL GRUBBS MD 780.79 Feeling Tired Or Poorly 04/06/2009 MARIBELL GRUBBS MD 786.05 Shortness Of Breath 04/06/2009 JUNE DO, MARCELO K 300.00 anxiety 04/06/2009 JUNE DO, MARCELO K 401.9 ESSENTIAL HYPERTENSION 04/06/2009 JUNE DO, MARCELO K 780.79 Feeling Tired Or Poorly 04/06/2009 JUNE DO, MARCELO K 786.05 Shortness Of Breath 04/06/2009 JUNE DO, MARCELO K 300.00 anxiety 04/06/2009 JUNE DO, MARCELO K 401.9 ESSENTIAL HYPERTENSION 04/06/2009 JUNE DO, MARCELO K 780.79 Feeling Tired Or Poorly 04/06/2009 JUNE DO, MARCELO K 786.05 Shortness Of Breath 04/06/2009 MADL DICTATING MACHINE TRANSCRIBER, ALVARO L 300.00 anxiety 04/06/2009 MADL DICTATING MACHINE TRANSCRIBER, ALVARO L 401.9 ESSENTIAL HYPERTENSION 04/06/2009 MADL DICTATING MACHINE TRANSCRIBER, ALVARO L 780.79 Feeling Tired Or Poorly 04/06/2009 MADL DICTATING MACHINE TRANSCRIBER, ALVARO L 786.05 Shortness Of Breath 04/06/2009 MADL DICTATING MACHINE TRANSCRIBER, ALVARO L 300.00 anxiety 04/06/2009 MADL DICTATING MACHINE TRANSCRIBER, ALVARO L 401.9 ESSENTIAL HYPERTENSION 04/06/2009 MADL DICTATING MACHINE TRANSCRIBER, ALVARO L 780.79 Feeling Tired Or Poorly 04/06/2009 MADL DICTATING MACHINE TRANSCRIBER, ALVARO L 786.05 Shortness Of Breath 04/06/2009 JUNE DO, MARCELO K 300.00 anxiety 04/06/2009 JUNE DO, MARCELO K 401.9 ESSENTIAL HYPERTENSION 04/06/2009 JUNE DO, MARCELO K 780.79 Feeling Tired Or Poorly 04/06/2009 JUNE DO, MARCELO K 786.05 Shortness Of Breath 05/05/2009 SHEREE MARTINEZ, ALVA 465.9 UPPER RESPIRATORY INFECTION 05/05/2009 SHEREE MARTINEZ, ALVA 625.0 DYSPAREUNIA 05/05/2009 ALVA BENTLEY MD 786.2 cough 05/05/2009 465.9 UPPER RESPIRATORY INFECTION 05/05/2009 625.0 DYSPAREUNIA 05/05/2009 786.2 cough 05/05/2009 ALVA BENTLEY MD 465.9 Upper Respiratory Infection 05/05/2009 SHEREE MARTINEZ, ALVA 625.0 Dyspareunia 05/05/2009 ALVA BENTLEY MD 786.2 Cough 05/05/2009 JUNE DO, MARCELO K 465.9 Upper Respiratory Infection 05/05/2009 JUNE DO, MARCELO K 625.0 Dyspareunia 05/05/2009 JUNE DO, MARCELO K 786.2 Cough 05/05/2009 MARIBELL GRUBBS MD M 465.9 Upper Respiratory Infection 05/05/2009 ROMIE MARTINEZ, MARIBELL M 625.0 Dyspareunia 05/05/2009 ROMIE MARTINEZ, MARIBELL M 786.2 Cough 05/05/2009 ROMIE MARTINEZ, MARIBELL M 465.9 Upper Respiratory Infection 05/05/2009 ROMIE MARTINEZ, MARIBELL M 625.0 Dyspareunia 05/05/2009 ROMIE MARTINEZ, MARIBELL M 786.2 Cough 05/05/2009 JUNE DO, MARCELO K 465.9 Upper Respiratory Infection 05/05/2009 JUNE DO, MARCELO K 625.0 Dyspareunia 05/05/2009 JUNE DO, MARCELO K 786.2 Cough 05/05/2009 JUNE DO, MARCELO K 465.9 Upper Respiratory Infection 05/05/2009 JUNE DO, MARCELO K 625.0 Dyspareunia 05/05/2009 JUNE DO, MARCELO K 786.2 Cough 05/05/2009 MADL DICTATING MACHINE TRANSCRIBER, ALVARO L 465.9 Upper Respiratory Infection 05/05/2009 MADL DICTATING MACHINE TRANSCRIBER, ALVARO L 625.0 Dyspareunia 05/05/2009 MADL DICTATING MACHINE TRANSCRIBER, ALVARO L 786.2 Cough 05/05/2009 MADL DICTATING MACHINE TRANSCRIBER, ALVARO L 465.9 Upper Respiratory Infection 05/05/2009 MADL DICTATING MACHINE TRANSCRIBER, ALVARO L 625.0 Dyspareunia 05/05/2009 MADL DICTATING MACHINE TRANSCRIBER, ALVARO L 786.2 Cough 05/05/2009 MARCELO JUNE DO K 465.9 Upper Respiratory Infection 05/05/2009 ROVERTO JUNE DOA K 625.0 Dyspareunia 05/05/2009 JUNE , MARCELO K 786.2 Cough 06/27/2009 ALVA BENTLEY MD 791.0 PROTEINURIA 06/27/2009 791.0 PROTEINURIA 06/27/2009 ALVA BENTLEY MD 791.0 Proteinuria 06/27/2009 JUNE ROVERTO CHANGA K 791.0 Proteinuria 06/27/2009 MARIBELL GRUBBS MD 791.0 Proteinuria 06/27/2009 MARIBELL GRUBBS MD 791.0 Proteinuria 06/27/2009 JUNE , MARCELO K 791.0 Proteinuria 06/27/2009 JUNE , MARCELO K 791.0 Proteinuria 06/27/2009 MADL DICTATING MACHINE TRANSCRIBERALVARO Terry 791.0 Proteinuria 06/27/2009 MADL DICTATING MACHINE TRANSCRIBERALVARO Terry 791.0 Proteinuria 06/27/2009 ROVERTO JUNE DOA K 791.0 Proteinuria 09/20/2009 ALVA BENTLYE MD 616.10 VAGINITIS VULVOVAGINITIS UNSPECIFIED 09/20/2009 616.10 VAGINITIS VULVOVAGINITIS UNSPECIFIED 09/20/2009 ALVA BENTLEY MD 616.10 Vaginitis Vulvovaginitis Unspecified 09/20/2009 MARCELO JNUE DO 616.10 Vaginitis Vulvovaginitis Unspecified 09/20/2009 MARIBELL GRUBBS MD 616.10 Vaginitis Vulvovaginitis Unspecified 09/20/2009 MARIBELL GRUBBS MD 616.10 Vaginitis Vulvovaginitis Unspecified 09/20/2009 MARCELO JUNE DO K 616.10 Vaginitis Vulvovaginitis Unspecified 09/20/2009 MARCELO JUNE DO K 616.10 Vaginitis Vulvovaginitis Unspecified 09/20/2009 MADL DICTATING MACHINE TRANSCRIBERALVARO Terry 616.10 Vaginitis Vulvovaginitis Unspecified 09/20/2009 MADL DICTATING MACHINE TRANSCRIBERALVARO Terry 616.10 Vaginitis Vulvovaginitis Unspecified 09/20/2009 JUNE DO, MARCELO K 616.10 Vaginitis Vulvovaginitis Unspecified 06/29/2010 ALVA BENTLEY MD 461.9 SINUSITIS ACUTE 06/29/2010 461.9 SINUSITIS ACUTE 06/29/2010 ALVA BENTLEY MD 461.9 Sinusitis Acute 06/29/2010 JUNE DO MARCELO K 461.9 Sinusitis Acute 06/29/2010 MARIBELL GRUBBS MD 461.9 Sinusitis Acute 06/29/2010 MARIBELL GRUBBS MD 461.9 Sinusitis Acute 06/29/2010 JUNE DO, MARCELO K 461.9 Sinusitis Acute 06/29/2010 JUNE DO, MARCELO K 461.9 Sinusitis Acute 06/29/2010 MADL DICTATING MACHINE TRANSCRIBER, ALVARO L 461.9 Sinusitis Acute 06/29/2010 MADL DICTATING MACHINE TRANSCRIBER, ALVARO L 461.9 Sinusitis Acute 06/29/2010 JUNE DO MARCELO K 461.9 Sinusitis Acute 07/25/2010 ALVA BENTLEY MD 708.0 ALLERGIC URTICARIA 07/25/2010 708.0 ALLERGIC URTICARIA 07/25/2010 ALVA BENTLEY MD 708.0 Allergic Urticaria 07/25/2010 JUNE , MARCELO K 708.0 Allergic Urticaria 07/25/2010 MARIBELL GRUBBS MD 708.0 Allergic Urticaria 07/25/2010 MARIBELL GRUBBS MD 708.0 Allergic Urticaria 07/25/2010 JUNE DO, MARCELO K 708.0 Allergic Urticaria 07/25/2010 JUNE DO MARCELO K 708.0 Allergic Urticaria 07/25/2010 LEODANL DICTATING MACHINE TRANSCRIBER, ALVARO L 708.0 Allergic Urticaria 07/25/2010 MADL DICTATING MACHINE TRANSCRIBER, ALVARO L 708.0 Allergic Urticaria 07/25/2010 JUNE DO, MARCELO K 708.0 Allergic Urticaria 02/14/2011 ALVA BENTLEY MD 214.9 LIPOMA UNSPECIFIED SITE 02/14/2011 214.9 LIPOMA UNSPECIFIED SITE 02/14/2011 ALVA BENTLEY MD 214.9 Lipoma Unspecified Site 02/14/2011 SLADE CHANG MARCELO K 214.9 Lipoma Unspecified Site 02/14/2011 MARIBELL GRUBBS MD 214.9 Lipoma Unspecified Site 02/14/2011 MARIBELL GRUBBS MD 214.9 Lipoma Unspecified Site 02/14/2011 JUNE DO MARCELO K 214.9 Lipoma Unspecified Site 02/14/2011 JUNE DO, MARCELO K 214.9 Lipoma Unspecified Site 02/14/2011 FABIANA DICTATING MACHINE TRANSCRIBERALVARO L 214.9 Lipoma Unspecified Site 02/14/2011 FABIANA DICTATING MACHINE TRANSCRIBERLISA TerryA L 214.9 Lipoma Unspecified Site 02/14/2011 JUNE DO, MARCELO K 214.9 Lipoma Unspecified Site 02/22/2011 ALVA BENTLEY MD 706.2 SEBACEOUS CYST 02/22/2011 706.2 SEBACEOUS CYST 02/22/2011 ALVA BENTLEY MD 706.2 Sebaceous Cyst 02/22/2011 JUNE ROVERTO CHANGA K 706.2 Sebaceous Cyst 02/22/2011 MARIBELL GRUBBS MD 706.2 Sebaceous Cyst 02/22/2011 MARIBELL GRUBBS MD 706.2 Sebaceous Cyst 02/22/2011 JUNE ROVERTO CHANGA K 706.2 Sebaceous Cyst 02/22/2011 JUNE DO, MARCELO K 706.2 Sebaceous Cyst 02/22/2011 FABIANA DICTATING MACHINE TRANSCRIBERLISA TerryA L 706.2 Sebaceous Cyst 02/22/2011 FABIANA DICTATING MACHINE TRANSCRIBERMISA TerryNYA L 706.2 Sebaceous Cyst 02/22/2011 JUNE DO MARCELO K 706.2 Sebaceous Cyst 04/04/2011 ALVA BENTLEY MD 250.62 DIABETES W/ NEUROLOGICAL COMPLICATIONS TYPE 2 UNCONTROLLED 04/04/2011 ALVA BENTLEY MD 278.02 OVERWEIGHT 04/04/2011 250.62 DIABETES W/ NEUROLOGICAL COMPLICATIONS TYPE 2 UNCONTROLLED 04/04/2011 278.02 OVERWEIGHT 04/04/2011 ALVA BENTLEY MD 250.62 DIABETES W/ NEUROLOGICAL COMPLICATIONS TYPE 2 UNCONTROLLED 04/04/2011 ALVA BENTLEY MD 278.02 Overweight 04/04/2011 MARCELO JUNE DO 250.62 DIABETES W/ NEUROLOGICAL COMPLICATIONS TYPE 2 UNCONTROLLED 04/04/2011 ROVERTO JUNE DOA K 278.02 Overweight 04/04/2011 MARIBELL GRUBBS MD 250.62 DIABETES W/ NEUROLOGICAL COMPLICATIONS TYPE 2 UNCONTROLLED 04/04/2011 ROMIE MARTINEZ, MARIBELL Casarez 278.02 Overweight 04/04/2011 ROMIE MARTINEZ, MARIBELL Casarez 250.62 DIABETES W/ NEUROLOGICAL COMPLICATIONS TYPE 2 UNCONTROLLED 04/04/2011 ROMIE MARTINEZ, MARIBELL Casarez 278.02 Overweight 04/04/2011 JUNE DO, MARCELO K 250.62 DIABETES W/ NEUROLOGICAL COMPLICATIONS TYPE 2 UNCONTROLLED 04/04/2011 JUNE DO, MARCELO K 278.02 Overweight 04/04/2011 JUNE DO, MARCELO K 250.62 DIABETES W/ NEUROLOGICAL COMPLICATIONS TYPE 2 UNCONTROLLED 04/04/2011 JUNE DO, MARCELO K 278.02 Overweight 04/04/2011 MADL DICTATING MACHINE TRANSCRIBER, ALVARO L 250.62 DIABETES W/ NEUROLOGICAL COMPLICATIONS TYPE 2 UNCONTROLLED 04/04/2011 MADL DICTATING MACHINE TRANSCRIBER, ALVARO L 278.02 Overweight 04/04/2011 MADL DICTATING MACHINE TRANSCRIBER, ALVARO L 250.62 DIABETES W/ NEUROLOGICAL COMPLICATIONS TYPE 2 UNCONTROLLED 04/04/2011 MADL DICTATING MACHINE TRANSCRIBER, ALVARO L 278.02 Overweight 04/04/2011 JUNE DO, MARCELO K 250.62 DIABETES W/ NEUROLOGICAL COMPLICATIONS TYPE 2 UNCONTROLLED 04/04/2011 JUNE DO, MARCELO K 278.02 Overweight 10/15/2011 ALVA BENTLEY MD 388.70 OTALGIA 10/15/2011 388.70 OTALGIA 10/15/2011 ALVA BENTLEY MD 388.70 Otalgia 10/15/2011 JUNE DO, MARCELO K 388.70 Otalgia 10/15/2011 MARIBELL GRBUBS MD 388.70 Otalgia 10/15/2011 MARIBELL GRUBBS MD 388.70 Otalgia 10/15/2011 JUNE DO, MARCELO K 388.70 Otalgia 10/15/2011 JUNE DO, MARCELO K 388.70 Otalgia 10/15/2011 MADL DICTATING MACHINE TRANSCRIBER, ALVARO L 388.70 Otalgia 10/15/2011 MADL DICTATING MACHINE TRANSCRIBER, ALVARO L 388.70 Otalgia 10/15/2011 JUNE DO, MARCELO K 388.70 Otalgia 12/17/2011 ALVA BENTLEY MD 719.46 joint pain, localized in the knee 12/17/2011 719.46 joint pain, localized in the knee 12/17/2011 ALVA BENTLEY MD 719.46 Joint Pain, Localized In The Knee 12/17/2011 ROVERTO JUNE DOA K 719.46 Joint Pain, Localized In The Knee 12/17/2011 MARIBELL GRUBBS MD 719.46 Joint Pain, Localized In The Knee 12/17/2011 MARIBELL GRUBBS MD 719.46 Joint Pain, Localized In The Knee 12/17/2011 JUNE ROVERTO CHANGA K 719.46 Joint Pain, Localized In The Knee 12/17/2011 JUNE DO, MARCELO K 719.46 Joint Pain, Localized In The Knee 12/17/2011 LISA JUNG APRNA L 719.46 Joint Pain, Localized In The Knee 12/17/2011 ALVARO JUNG APRN L 719.46 Joint Pain, Localized In The Knee 12/17/2011 JUNE DOROVERTOA K 719.46 Joint Pain, Localized In The Knee 02/05/2012 ALVA BENTLEY MD 599.0 URINARY TRACT INFECTION 02/05/2012 599.0 URINARY TRACT INFECTION 02/05/2012 ALVA BENTLEY MD 599.0 Urinary Tract Infection 02/05/2012 JUNE DO MARCELO K 599.0 Urinary Tract Infection 02/05/2012 MARIBELL GRUBBS MD 599.0 Urinary Tract Infection 02/05/2012 MARIBELL GRUBBS MD 599.0 Urinary Tract Infection 02/05/2012 JUNE DO MARCELO K 599.0 Urinary Tract Infection 02/05/2012 JUNE DO MARCELO K 599.0 Urinary Tract Infection 02/05/2012 LISA JUNG APRNA L 599.0 Urinary Tract Infection 02/05/2012 FRAN JUNG APRNWNYA L 599.0 Urinary Tract Infection 02/05/2012 JUNE DO MARCELO K 599.0 Urinary Tract Infection 09/04/2012 ALVA BENTLEY MD 112.1 CANDIDIASIS VAGINAL 09/04/2012 112.1 CANDIDIASIS VAGINAL 09/04/2012 ALVA BENTLEY MD 112.1 Candidiasis Vaginal 09/04/2012 SLADE CHANG MARCELO K 112.1 Candidiasis Vaginal 09/04/2012 MARIBELL GRUBBS MD 112.1 Candidiasis Vaginal 09/04/2012 MARIBELL GRUBBS MD 112.1 Candidiasis Vaginal 09/04/2012 ROVERTO JUNE DOA K 112.1 Candidiasis Vaginal 09/04/2012 SLADE CHANG MARCELO K 112.1 Candidiasis Vaginal 09/04/2012 FABIANA DICTATING MACHINE TRANSCRIBERLISA TerryA L 112.1 Candidiasis Vaginal 09/04/2012 LEODANL DICTATING MACHINE TRANSCRIBERRFAN TerryALVARO L 112.1 Candidiasis Vaginal 09/04/2012 SLADE CHANG MARCELO K 112.1 Candidiasis Vaginal 09/22/2012 SHEREE MARTINEZ, ALVA 459.81 VENOUS (PERIPHERAL) INSUFFICIENCY UNSPECIFIED 09/22/2012 MARCELO JUNE DO K 459.81 VENOUS (PERIPHERAL) INSUFFICIENCY UNSPECIFIED 09/22/2012 MARIBELL GRUBBS MD 459.81 VENOUS (PERIPHERAL) INSUFFICIENCY UNSPECIFIED 09/22/2012 MARIBELL GRUBBS MD 459.81 VENOUS (PERIPHERAL) INSUFFICIENCY UNSPECIFIED 09/22/2012 MARCELO JUNE DO K 459.81 VENOUS (PERIPHERAL) INSUFFICIENCY UNSPECIFIED 09/22/2012 MARCELO JUNE DO K 459.81 VENOUS (PERIPHERAL) INSUFFICIENCY UNSPECIFIED 09/22/2012 ALVARO JUNG APRN L 459.81 VENOUS (PERIPHERAL) INSUFFICIENCY UNSPECIFIED 09/22/2012 LISA JUNG APRNA L 459.81 VENOUS (PERIPHERAL) INSUFFICIENCY UNSPECIFIED 09/22/2012 MARCELO JUNE DO K 459.81 VENOUS (PERIPHERAL) INSUFFICIENCY UNSPECIFIED 11/26/2012 MARCELO JUNE DO K 717.7 CHONDROMALACIA OF [place]LLA 11/26/2012 MARIBELL GRUBBS MD 717.7 CHONDROMALACIA OF [place] 11/26/2012 MARIBELL GRUBBS MD 717.7 CHONDROMALACIA OF [place] 11/26/2012 MARCELO JUNE DO K 717.7 CHONDROMALACIA OF [place] 11/26/2012 MARCELO JUNE DO K 717.7 CHONDROMALACIA OF [place] 11/26/2012 ALVARO JUNG APRN 717.7 CHONDROMALACIA OF [place] 11/26/2012 ALVARO JUNG APRN 717.7 CHONDROMALACIA OF [place] 11/26/2012 MARCELO JUNE DO K 717.7 CHONDROMALACIA OF [place] 04/28/2013 MARIBELL GRUBBS MD 054.10 GENITAL HERPES UNSPECIFIED 04/28/2013 MARIBELL GRUBBS MD 054.10 GENITAL HERPES UNSPECIFIED 04/28/2013 JUNE DO MARCELO K 054.10 GENITAL HERPES UNSPECIFIED 04/28/2013 JUNE DO MARCELO K 054.10 GENITAL HERPES UNSPECIFIED 04/28/2013 MADL DICTATING MACHINE TRANSCRIBER, ALVARO L 054.10 GENITAL HERPES UNSPECIFIED 04/28/2013 MADL DICTATING MACHINE TRANSCRIBER, ALVARO L 054.10 GENITAL HERPES UNSPECIFIED 04/28/2013 JUNE DO MARCELO K 054.10 GENITAL HERPES UNSPECIFIED 07/06/2013 MARIBELL GRUBBS MD 623.5 vaginal discharge 07/06/2013 MARIBELL GRUBBS MD 626.4 IRREGULAR MENSTRUAL CYCLE 07/06/2013 MARIBELL GRUBBS MD 623.5 vaginal discharge 07/06/2013 MARIBELL GRUBBS MD 626.4 IRREGULAR MENSTRUAL CYCLE 07/06/2013 JUNE DO, MARCELO K 623.5 vaginal discharge 07/06/2013 JUNE DO MARCELO K 626.4 IRREGULAR MENSTRUAL CYCLE 07/06/2013 JUNE DO, MARCELO K 623.5 vaginal discharge 07/06/2013 JUNE DO, MARCELO K 626.4 IRREGULAR MENSTRUAL CYCLE 07/06/2013 MADL DICTATING MACHINE TRANSCRIBER, ALVARO L 623.5 vaginal discharge 07/06/2013 MADL DICTATING MACHINE TRANSCRIBER, ALVARO L 626.4 IRREGULAR MENSTRUAL CYCLE 07/06/2013 MADL DICTATING MACHINE TRANSCRIBER, ALVARO L 623.5 vaginal discharge 07/06/2013 MADL DICTATING MACHINE TRANSCRIBER, ALVARO L 626.4 IRREGULAR MENSTRUAL CYCLE 07/06/2013 JUNE DO, MARCELO K 623.5 vaginal discharge 07/06/2013 JUNE DO, MARCELO K 626.4 IRREGULAR MENSTRUAL CYCLE 12/17/2013 MARIBELL GRUBBS MD 461.9 SINUSITIS ACUTE 12/17/2013 MARIBELL GRUBBS MD 729.5 PAIN IN LIMB 12/17/2013 ROVERTO JUNE DOA K 461.9 SINUSITIS ACUTE 12/17/2013 ROVERTO JUNE DOA K 729.5 PAIN IN LIMB 12/17/2013 JUNE DO MARCELO K 461.9 SINUSITIS ACUTE 12/17/2013 ROVERTO JUNE DOA K 729.5 PAIN IN LIMB 12/17/2013 MADL DICTATING MACHINE TRANSCRIBERFRANALVARO L 461.9 SINUSITIS ACUTE 12/17/2013 LEODANL DICTATING MACHINE TRANSCRIBER ALVARO L 729.5 PAIN IN LIMB 12/17/2013 LEODANL DICTATING MACHINE TRANSCRIBERLISA TerryA L 461.9 SINUSITIS ACUTE 12/17/2013 LEODANL DICTATING MACHINE TRANSCRIBERLISA TerryA L 729.5 PAIN IN LIMB 12/17/2013 MARCELO JUNE DO K 461.9 SINUSITIS ACUTE 12/17/2013 MARCELO JUNE DO 729.5 PAIN IN LIMB 12/27/2013 MARCELO JUNE DO 250.80 DIABETES WITH OTHER SPECIFIED MANIFESTATIONS TYPE II OR UNSPECIFIED TYPE NOT STATED UNCONTROLLED 12/27/2013 MARCELO JUNE DO V15.81 PERSONAL HISTORY OF NONCOMPLIANCE WITH MEDICAL TREATMENT PRESENTING HAZARDS TO HEALTH 12/27/2013 MARCELO JUNE DO 250.80 DIABETES WITH OTHER SPECIFIED MANIFESTATIONS TYPE II OR UNSPECIFIED TYPE NOT STATED UNCONTROLLED 12/27/2013 MARCELO JUNE DO V15.81 PERSONAL HISTORY OF NONCOMPLIANCE WITH MEDICAL TREATMENT PRESENTING HAZARDS TO HEALTH 12/27/2013 ALVARO JUNG APRN L 250.80 DIABETES WITH OTHER SPECIFIED MANIFESTATIONS TYPE II OR UNSPECIFIED TYPE NOT STATED UNCONTROLLED 12/27/2013 ALVARO JUNG APRN L V15.81 PERSONAL HISTORY OF NONCOMPLIANCE WITH MEDICAL TREATMENT PRESENTING HAZARDS TO HEALTH 12/27/2013 ALVARO JUNG APRN V15.81 PERSONAL HISTORY OF NONCOMPLIANCE WITH MEDICAL TREATMENT PRESENTING HAZARDS TO HEALTH 12/27/2013 MARCELO JUNE DO V15.81 PERSONAL HISTORY OF NONCOMPLIANCE WITH MEDICAL TREATMENT PRESENTING HAZARDS TO HEALTH 03/22/2014 ALVARO JUNG APRN L 250.80 DIABETIC FOOT ULCER LEFT 03/22/2014 ALVARO JUNG APRN L 250.80 DIABETIC FOOT ULCER LEFT 03/22/2014 MARCELO JUNE DO 250.80 DIABETIC FOOT ULCER LEFT 04/14/2014 MARCELO JUNE DO 706.2 SEBACEOUS CYST 05/05/2014 ALVARO JUNG PAD MACHINE OFFBEARER Ot 250.80 DIAB W OTH SPEC MANIFEST, TYPE II OR UNS 05/05/2014 ALVARO JUNG PAD MACHINE OFFBEARER Ot 707.15 ULCER OF OTHER PART OF FOOT 05/05/2014 ALVARO JUNG PAD MACHINE OFFBEARER Ot V15.81 HX OF PAST NONCOMPLIANCE 07/30/2018 MARIBELL GRUBBS MD Ot 626.4 IRREGULAR MENSTRUATION 07/30/2018 Ot 250.80 DIAB W OTH SPEC MANIFEST, TYPE II OR UNS 07/30/2018 Ot 707.15 ULCER OF OTHER PART OF FOOT 07/30/2018 Ot V15.81 HX OF PAST NONCOMPLIANCE 08/07/2018 ADORE DIEGO MD, Ot E11.42 TYPE 2 DIABETES MELLITUS WITH DIABETIC P 08/07/2018 ADORE DIEGO MD, Ot E11.621 TYPE 2 DIABETES MELLITUS WITH FOOT ULCER 08/07/2018 ADORE DIEGO MD, Ot E11.65 TYPE 2 DIABETES MELLITUS WITH HYPERGLYCE 08/07/2018 ADORE DIEGO MD Ot T25.222A BURN OF SECOND DEGREE OF LEFT FOOT, INIT 08/07/2018 ADORE DIEGO MD, Ot T25.331A BURN OF THIRD DEGREE OF RIGHT TOE(S) (NA 08/07/2018 ADORE DIEGO MD, Ot T25.332A BURN OF THIRD DEGREE OF LEFT TOE(S) (LYNSEY 08/07/2018 ADORE DIEGO MD, Ot E11.42 TYPE 2 DIABETES MELLITUS WITH DIABETIC P 08/07/2018 ADORE DIEGO MD, Ot E11.621 TYPE 2 DIABETES MELLITUS WITH FOOT ULCER 08/07/2018 ADORE DIEGO MD Ot E11.65 TYPE 2 DIABETES MELLITUS WITH HYPERGLYCE 08/07/2018 ADORE DIEGO MD Ot T25.222A BURN OF SECOND DEGREE OF LEFT FOOT, INIT 08/07/2018 ADORE DIEGO MD Ot T25.331A BURN OF THIRD DEGREE OF RIGHT TOE(S) (NA 08/07/2018 ADORE DIEGO MD Ot T25.332A BURN OF THIRD DEGREE OF LEFT TOE(S) (LYNSEY 08/10/2018 MARIBELL GRUBBS MD Ot 626.4 IRREGULAR MENSTRUATION 08/10/2018 Ot 250.80 DIAB W OTH SPEC MANIFEST, TYPE II OR UNS 08/10/2018 Ot 707.15 ULCER OF OTHER PART OF FOOT 08/10/2018 Ot V15.81 HX OF PAST NONCOMPLIANCE 08/10/2018 ADORE DIEGO MD, Ot E11.42 TYPE 2 DIABETES MELLITUS WITH DIABETIC P 08/10/2018 ADORE DIEGO MD Ot E11.621 TYPE 2 DIABETES MELLITUS WITH FOOT ULCER 08/10/2018 ADORE DIEGO MD, Ot E11.65 TYPE 2 DIABETES MELLITUS WITH HYPERGLYCE 08/10/2018 ADORE DIEGO MD Ot T25.222A BURN OF SECOND DEGREE OF LEFT FOOT, INIT 08/10/2018 ADORE DIEGO MD, Ot T25.331A BURN OF THIRD DEGREE OF RIGHT TOE(S) (NA 08/10/2018 ADORE DIEGO MD Ot T25.332A BURN OF THIRD DEGREE OF LEFT TOE(S) (LYNSEY 08/10/2018 ADORE DIEGO MD Ot E11.42 TYPE 2 DIABETES MELLITUS WITH DIABETIC P 08/10/2018 ADORE DIEGO MD, Ot E11.621 TYPE 2 DIABETES MELLITUS WITH FOOT ULCER 08/10/2018 ADORE DIEGO MD, Ot E11.65 TYPE 2 DIABETES MELLITUS WITH HYPERGLYCE 08/10/2018 ADORE DIEGO MD Ot T25.222A BURN OF SECOND DEGREE OF LEFT FOOT, INIT 08/10/2018 ADORE DIEGO MD Ot T25.331A BURN OF THIRD DEGREE OF RIGHT TOE(S) (NA 08/10/2018 ADORE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
[2018-08-18 00:27] LABS: BASOPHILS % (AUTO) 0 % (0-10); EOSINOPHILS # (AUTO) 0.1 10^3/uL (0.0-0.3); EOSINOPHILS % (AUTO) 1 % (0-10); HEMATOCRIT 31 % (35-52); HEMOGLOBIN 10.7 G/DL (11.5-16.0); LYMPHOCYTES # (AUTO) 1.7 X 10^3 (1.0-4.0); LYMPHOCYTES % (AUTO) 14 % (12-44); MEAN CORPUSCULAR HEMOGLOBIN 30 PG (25-34); MEAN CORPUSCULAR HGB CONC 34 G/DL (32-36); MEAN CORPUSCULAR VOLUME 88 FL (80-99); MEAN PLATELET VOLUME 11.6 FL (7.4-10.4); MONOCYTES # (AUTO) 0.9 X 10^3 (0.0-1.0); MONOCYTES % (AUTO) 7 % (0-12); NEUTROPHILS # (AUTO) 9.9 X 10^3 (1.8-7.8); NEUTROPHILS % (AUTO) 79 % (42-75); PLATELET COUNT 238 10^3/uL (130-400); RED BLOOD COUNT 3.54 10^6/uL (4.35-5.85); RED CELL DISTRIBUTION WIDTH 12.5 % (10.0-14.5); WHITE BLOOD COUNT 12.5 10^3/uL (4.3-11.0)
[2018-08-18 00:35] LABS: PROTHROMBIN TIME PATIENT 12.9 SEC (12.2-14.7)
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
[2018-08-18 00:45] LABS: ALBUMIN 4.1 GM/DL (3.2-4.5); BILIRUBIN,TOTAL 0.4 MG/DL (0.1-1.0); CALCIUM 9.9 MG/DL (8.5-10.1); CREATININE SERUM 1.45 MG/DL (0.60-1.30); POTASSIUM 4.3 MMOL/L (3.6-5.0); TOTAL PROTEIN 7.8 GM/DL (6.4-8.2)
[2018-08-18 00:52] LABS: ERYTHROCYTE SEDIMENTATION RATE 76 MM/HR (0-20)
[2018-08-18] MEDS ORDERED: NS (IVPB) 250 ML ONE (00:59)
[2018-08-18] MEDS ORDERED: VANCOMYCIN 1000 MG/VIAL ONE ×2 (00:59→14:53)
[2018-08-18] MEDS ORDERED: VANCOMYCIN INJECTION 1,000 MG in NS (IVPB) 250 ML IV ONE (01:00)
[2018-08-18] MEDS ORDERED: NS IV 1000 ML 1,000 ML IV ONE (01:02)
[2018-08-18] MEDS ORDERED: inSUlin (REGULAR) HUMAN 1 UNIT/0.01 ML (CHARGE PER UNIT) IV ONE (01:15)
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
[2018-08-18] MEDS ORDERED: ONDANSETRON 4 MG/2 ML (SDV) Z0FRAN IV PRN (04:45)
[2018-08-18] MEDS ORDERED: PIPERACILLIN/TAZO 4.5 GM VIAL (ZOSYN) IV ONE (05:51)
[2018-08-18] MEDS ORDERED: NS (IVPB) 100 ML ONE (05:52)
[2018-08-18] MEDS: NS IV 1000 ML 1,000 ML IV SCH ×3 (05:55→14:45)
[2018-08-18] MEDS: inSUlin ASPART (NovoLOG) 1 UNIT/0.01 ML (CHARGE PER UNIT) SC SCH ×4 (05:56→20:33)
[2018-08-18] MEDS: PIPERACILLIN SODIUM/TAZOBACTAM 4.5 GM in NS (IVPB) 100 ML IV SCH ×3 (05:56→22:02)
[2018-08-18] MEDS: fentaNYL INJECTION 100 MCG/2 ML AMP IV PRN ×2 (05:57→14:36)
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
[2018-08-18] MEDS: VANCOMYCIN 1500 MG/NS 500 ML IVPB IV SCH ×2 (10:29)
[2018-08-18] MEDS ORDERED: LISI-552 PO (10:30)
[2018-08-18] MEDS ORDERED: INSU100I29 SQ (10:30)
[2018-08-18] MEDS ORDERED: ATOR20TA49 PO (10:30)
[2018-08-18] MEDS ORDERED: METO-387 PO (10:30)
[2018-08-18] MEDS ORDERED: CITA40TA19 PO (10:30)
[2018-08-18] MEDS ORDERED: DOXY100T2 PO (10:30)
[2018-08-18] MEDS ORDERED: FLU QUADRIvalent (5+ YOA) 2018-2019 (AFLURIA) 0.5 ML IM ONE (10:30)
[2018-08-18] MEDS ORDERED: GABA600T2 PO (10:30)
[2018-08-18] MEDS ORDERED: INSU100I23 SQ (10:30)
[2018-08-18] MEDS ORDERED: SILV20CR14 TP (10:30)
[2018-08-18] MEDS ORDERED: RT-ALBUINH IH (10:32)
[2018-08-18] MEDS ORDERED: CYCL10TA9 PO (10:32)
--- NOTE | 2018-08-18 10:35 | History & Physical-Hospitalist ---
History of Present Illness HPI/Chief Complaint CC: Left gangrenous toes HPI: This is a 47yoWF clinic patient of Dr Catherine and Dr Mckeon in wound care who presented to the ER w/left foot pain and redness and swelling and fever and found to also have gangrenous toes in need of amputation. Patient is currently in moderate pain but otherwise having no CP or SOB. Dr Carolina will see the patient in consultation and will plan for surgery this afternoon. Surgical benefits outweigh medical risks. Source: patient Exam Limitations: no limitations Date Seen 08/18/18 Time Seen by a Provider: 10:00 Attending Physician Dante Catherine MD PCP Dante Catherine MD Referring Physician Date of Admission Aug 18, 2018 at 01:08 Home Medications & Allergies Home Medications Reviewed patient Home Medication Reconciliation performed by pharmacy medication reconciliations vibration technician and/or nursing. Patients Allergies have been reviewed. Allergies Allergies Coded Allergies clarithromycin (Verified Allergy, Unknown, 08/17/18) hydrocodone (Verified Allergy, Unknown, 08/17/18) Past Fqgxxbi-Tyjmkh-Teefno Hx Past Med/Social Hx: Reviewed Nursing Past Med/Soc Hx, Reviewed and Corrections made Patient Social History Marrital Status: single Employed/Student: unemployed Alcohol Use: Denies Use Recreational Drug Use: No Smoking Status: Never a Smoker 2nd Hand Smoke Exposure: No Physical Abuse Screen: No Sexual Abuse: No Recent Foreign Travel: No Contact w/other who traveled: No Recent Hopitalizations: No Recent Infectious Disease Expo: No Immunizations Up To Date Tetanus Booster (TDap): Unknown Seasonal Allergies Seasonal Allergies: Yes Past Medical History Surgeries: Abdominal, Section, Eye Surgery Cardiac: Hypertension Neurological: Neuropathy : No Gastrointestinal: Gastroesophageal Reflux Endocrine: Diabetes, Insulin dep Are Your Blood Sugars Over 250: Yes HEENT: Macular Degeneration Psychosocial: Anxiety Skin/Integumentary: Recent Skin Changes History of Blood Disorders: No Review of Systems Constitutional: see HPI, fever EENTM: no symptoms reported Respiratory: no symptoms reported Cardiovascular: no symptoms reported Gastrointestinal: no symptoms reported Genitourinary: no symptoms reported Musculoskeletal: joint pain, other (left foot pain) Skin: no symptoms reported Psychiatric/Neurological: No Symptoms Reported All Other Systems Reviewed Negative Unless Noted: Yes Physical Exam Physical Exam Vital Signs Vital Signs - First Documented 08/17/18 23:45 Temp 97.5 Pulse 113 Resp 18 B/P (MAP) 181/93 (122) Pulse Ox 97 O2 Delivery Room Air Capillary Refill : Less Than 3 Seconds Height, Weight, BMI Height: 5'5.00" Weight: 221lbs. 4.8oz. 100.618890ts; 36.8 BMI Method:Stated General Appearance: No Apparent Distress, WD/WN, Chronically ill, Obese Eyes: Bilateral Eye Normal Inspection, Bilateral Eye PERRL HEENT: PERRL/EOMI, Normal ENT Inspection, Pharynx Normal Neck: Full Range of Motion, Normal Inspection, Non Tender, Supple, Carotid Bruit Respiratory: Chest Non Tender, Lungs Clear, Normal Breath Sounds, No Accessory Muscle Use, No Respiratory Distress Cardiovascular: Regular Rate, Rhythm, No Edema, No Gallop, No JVD, No Murmur, Normal Peripheral Pulses Gastrointestinal: Normal Bowel Sounds, No Organomegaly, No Pulsatile Mass, Non Tender, Soft Back: Normal Inspection, No CVA Tenderness, No Vertebral Tenderness Extremity: Normal Capillary Refill, Normal Inspection, Normal Range of Motion ( except gangrenous left 2-3 toes with erythema of foot), Non Tender, No Calf Tenderness, No Pedal Edema Neurologic/Psychiatric: Alert, Oriented x3, No Motor/Sensory Deficits, Normal Mood/Affect Skin: Normal Color, Warm/Dry Lymphatic: No Adenopathy Results Results/Procedures Labs Laboratory Tests 08/18/18 00:10 Patient resulted labs reviewed. Assessment/Plan Admission Diagnosis Assessment: Left toes gangrenous in need of amputation DM OOC Non-compliance Left foot cellulitis Plan: Surgical benefits outweigh medical risks. Home meds Admission Status: Inpatient Order (span 2 midnights) Reason for Inpatient Admission: Amputation and IV meds due to DM OOC will require 3 days Diagnosis/Problems Diagnosis/Problems (1) Gangrene of toe of left foot Status: Acute (2) Skin ulcer of right great toe Status: Chronic Qualifiers: Non-pressure ulcer stage: unspecified non-pressure ulcer stage Qualified Codes: L97.519 - Non-pressure chronic ulcer of other part of right foot with unspecified severity (3) Cellulitis of left foot Status: Acute (4) Uncontrolled diabetes mellitus Status: Chronic Qualifiers: Diabetes mellitus type: type 2 Glycemic state: with hyperglycemia Qualified Codes: E11.65 - Type 2 diabetes mellitus with hyperglycemia Clinical Quality Measures DVT/VTE Risk/Contraindication: Risk Factor Score Per Nursin RFS Level Per Nursing on Admit: 2=Moderate DANNY HKAN DO Aug 18, 2018 10:35
[2018-08-18] MEDS ORDERED: CYCLOBENZAPRINE 10 MG (FLEXERIL) TAB PO PRN (10:45)
[2018-08-18] MEDS ORDERED: RT-ALBUTEROL SULF 2.5 MG/3 ML PRE-MIX VIAL IH PRN (10:45)
[2018-08-18] MEDS: METOCLOPRAMIDE 5 MG (REGLAN) TAB PO SCH ×2 (12:05→17:37)
[2018-08-18] MEDS: inSUlin ASPART (NovoLOG) 1 UNIT/0.01 ML (CHARGE PER UNIT) SQ SCH ×2 (12:06→17:37)
[2018-08-18] MEDS: GABAPENTIN 600 MG (NEURONTIN) TAB PO SCH ×2 (13:09→20:32)
--- NOTE | 2018-08-18 14:34 | Podiatry Progress Note ---
Standard Progress Note Progress Notes/Assess & Plan Date Seen by a Provider: Aug 18, 2018 Time Seen by a Provider: 14:30 Progress/Assessment & Plan Consult dictated. Recommend incision and drainage of the left foot this afternoon with amputation of the 2nd digit and the distal phalanx of the left hallux. Final Diagnosis Dry gangrene left 2nd toe Exposed bone and high suspicion of osteomyelitis left hallux Cellulitis left foot Diabetic Neuropathy Uncontrolled DM BUTCH BLUM DPM Aug 18, 2018 14:34
[2018-08-18] MEDS ORDERED: BUPIVACAINE 0.5% 30 ML (SENSORCAINE) VIAL ONE (14:53)
[2018-08-18] MEDS ORDERED: proPOfol 200 MG/20 ML (DIPRIVAN) VIAL IV ONE ×2 (15:04→15:54)
[2018-08-18] MEDS ORDERED: LIDOCAINE PF 2% 5 ML (XYLOCAINE) VIAL ONE (15:04)
[2018-08-18] MEDS: LACTATED RINGERS 1,000 ML IV PRN ×2 (15:04→15:44)
[2018-08-18] MEDS ORDERED: ONDANSETRON 4 MG/2 ML (SDV) Z0FRAN ONE ×2 (15:04→15:41)
[2018-08-18] MEDS ORDERED: SUCCINYLCHOLINE INJ 100 MG/5 ML SYR ONE (15:04)
[2018-08-18] MEDS ORDERED: fentaNYL INJECTION 100 MCG/2 ML AMP ONE (15:04)
[2018-08-18] MEDS ORDERED: MIDAZOLAM 2 MG/2 ML (VERSED) VIAL ONE (15:05)
[2018-08-18] MEDS ORDERED: SEVOFLURANE (ULTANE) 15 ML INHAL SOLN ONE ×7 (15:10→16:36)
[2018-08-18] MEDS ORDERED: morphine INJ 10 MG/ML 1ML (SYR OR VIAL) ONE (15:41)
[2018-08-18] MEDS ORDERED: PHENYLEPHRINE 100 MCG/ML 10 ML (ANESTHESIA) SYR ONE (15:41)
[2018-08-18] MEDS ORDERED: FAMOTIDINE 20MG/2ML IV (PEPCID) ONE (15:41)
[2018-08-18] MEDS ORDERED: HYDROmorphone 2 MG/ML VIAL (DILAUDID) IV ONE (16:00)
[2018-08-18] MEDS ORDERED: MEPERIDINE (DEMEROL) INJ 50 MG/ML IVP ONE (16:00)
[2018-08-18] MEDS ORDERED: ONDANSETRON 4 MG/2 ML (SDV) Z0FRAN IVP PRN (16:00)
[2018-08-18] MEDS ORDERED: PROMETHAZINE INJ 25 MG/ML (PHENERGAN) AMP IVP ONE (16:00)
[2018-08-18] MEDS ORDERED: RT-ALBUTEROL HFA (VENTOLIN) PER PUFF IH ONE (16:18)
--- NOTE | 2018-08-18 16:36 | Progress Note-Post Operative ---
Post-Operative Progess Note Surgeon (s)/Putty And Caulking Supervisor (s) Surgeon BUTCH BLUM DPM Putty And Caulking Supervisor: None Pre-Operative Diagnosis Dry Gangrene left 2nd toe, Osteomyelitis left hallux Post-Operative Diagnosis Same Procedure & Operative Findings Date of Procedure 08/18/18 Procedure Performed/Findings Amputation of the left 2nd toe, Partial amputation of the left hallux Anesthesia Type General Estimated Blood Loss Estimated blood loss (mL): Minimal Specimens/Packing Specimens Removed left 2nd toe, left hallux distal phalanx Packing: none BUTCH BLUM DPM Aug 18, 2018 16:36
[2018-08-18] MEDS: LACTATED RINGERS 1,000 ML IV SCH ×2 (17:05→20:33)
--- NOTE | 2018-08-18 17:53 | Diagnostic Imaging Report ---
INDICATION: Postop. TIME OF EXAM: 05:05 p.m. FINDINGS: Two views of the left foot demonstrate partial amputation of the great toe at the level of the distal aspect of the proximal phalanx. There has also been amputation of the entire second toe. The remaining bony structures appear to be intact without evidence of fracture or bony destructive changes. Mid foot and hind foot are unremarkable. There is some soft tissue swelling dorsally. IMPRESSION: Postop changes, as described. Dictated by: Dictated on workstation # [id number]
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
[2018-08-18] MEDS: inSUlin DETERMIR 1 UNIT/0.01 ML (LEVEMIR) CHARGE PER UNIT SQ SCH (20:32)
[2018-08-18] MEDS: BACITRACIN OINTMENT 28 GM TUBE TOP SCH (20:33)
[2018-08-18] MEDS ORDERED: BACITRACIN OINTMENT 28 GM TUBE TOP ONE (21:00)
[2018-08-19 00:01] VITALS: BP 135/68
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
[2018-08-19 04:32] VITALS: BP 135/68
[2018-08-19] MEDS: PIPERACILLIN SODIUM/TAZOBACTAM 4.5 GM in NS (IVPB) 100 ML IV SCH ×3 (05:54→22:24)
[2018-08-19] MEDS: METOCLOPRAMIDE 5 MG (REGLAN) TAB PO SCH ×3 (05:54→16:29)
[2018-08-19] MEDS: ACETAMINOPHEN 500 MG TAB (TYLENOL) PO PRN ×3 (05:54→23:58)
[2018-08-19] MEDS: inSUlin ASPART (NovoLOG) 1 UNIT/0.01 ML (CHARGE PER UNIT) SC SCH ×4 (05:55→21:48)
[2018-08-19] MEDS: inSUlin ASPART (NovoLOG) 1 UNIT/0.01 ML (CHARGE PER UNIT) SQ SCH ×3 (05:55→18:01)
[2018-08-19 06:10] LABS: BASOPHILS % (AUTO) 0 % (0-10); EOSINOPHILS % (AUTO) 0 % (0-10); HEMATOCRIT 26 % (35-52); HEMOGLOBIN 8.7 G/DL (11.5-16.0); LYMPHOCYTES # (AUTO) 1.5 X 10^3 (1.0-4.0); LYMPHOCYTES % (AUTO) 13 % (12-44); MEAN CORPUSCULAR HEMOGLOBIN 31 PG (25-34); MEAN CORPUSCULAR HGB CONC 34 G/DL (32-36); MEAN CORPUSCULAR VOLUME 92 FL (80-99); MONOCYTES # (AUTO) 0.9 X 10^3 (0.0-1.0); MONOCYTES % (AUTO) 8 % (0-12); NEUTROPHILS # (AUTO) 8.9 X 10^3 (1.8-7.8); NEUTROPHILS % (AUTO) 79 % (42-75); PLATELET COUNT 179 10^3/uL (130-400); RED BLOOD COUNT 2.83 10^6/uL (4.35-5.85); RED CELL DISTRIBUTION WIDTH 12.5 % (10.0-14.5); WHITE BLOOD COUNT 11.4 10^3/uL (4.3-11.0)
[2018-08-19 06:45] LABS: ALBUMIN 3.2 GM/DL (3.2-4.5); BILIRUBIN,TOTAL 0.4 MG/DL (0.1-1.0); CALCIUM 8.6 MG/DL (8.5-10.1); CREATININE SERUM 1.01 MG/DL (0.60-1.30); POTASSIUM 4.2 MMOL/L (3.6-5.0); TOTAL PROTEIN 6.1 GM/DL (6.4-8.2)
--- NOTE | 2018-08-19 06:50 | Anesthesia-General Post-Op ---
General Patient Condition Mental Status/LOC: Same as Preop Cardiovascular: Satisfactory Nausea/Vomiting: Absent Respiratory: Satisfactory Pain: Controlled Complications: Absent Post Op Complications Complications None Follow Up Care/Instructions Patient Instructions None needed. Anesthesia/Patient Condition Patient Condition Patient is doing well, no complaints, stable vital signs, no apparent adverse anesthesia problems. No complications reported per nursing. [place] [facility] [place] NICKOLAS MYLES CRNA Aug 19, 2018 06:49
[2018-08-19 08:00] VITALS: BP 98/63
[2018-08-19] MEDS: LACTATED RINGERS 1,000 ML IV SCH (08:02)
[2018-08-19] MEDS: GABAPENTIN 600 MG (NEURONTIN) TAB PO SCH ×3 (08:35→21:47)
[2018-08-19] MEDS: inSUlin DETERMIR 1 UNIT/0.01 ML (LEVEMIR) CHARGE PER UNIT SQ SCH (08:38)
[2018-08-19] MEDS: SILVASORB GEL 1.5 OZ TP SCH (08:42)
[2018-08-19] MEDS: VANCOMYCIN 1500 MG/NS 500 ML IVPB IV SCH ×2 (10:02)
[2018-08-19] MEDS: BACITRACIN OINTMENT 28 GM TUBE TOP SCH ×2 (10:37→21:54)
--- NOTE | 2018-08-19 10:54 | Progress Note-Hospitalist ---
Subjective HPI/CC On Admission Date Seen by Provider: Aug 19, 2018 Time Seen by Provider: 10:30 CC: Left gangrenous toes HPI: This is a 47yoWF clinic patient of Dr Catherine and Dr Mckeon in wound care who presented to the ER w/left foot pain and redness and swelling and fever and found to also have gangrenous toes in need of amputation. Patient is currently in moderate pain but otherwise having no CP or SOB. Dr Carolina will see the patient in consultation and will plan for surgery this afternoon. Surgical benefits outweigh medical risks. Subjective/Events-last exam Underwent PROCEDURE: 1. Amputation of the left second toe. 2. Partial amputation of the left hallux toe due to Osteomyelitis exposed bone to the left hallux distal phalanx yesterday per Dr Carolina POD # 1 Sugars remain high Pain is under control Checked meds and labs Needs BM so ordered meds PICC will be needed SW consult HLIVF since PO is adequate Review of Systems Gastrointestinal: Constipation Musculoskeletal: foot pain Focused Exam Lactate Level 08/18/18 00:10: Lactic Acid Level 0.95 Objective Exam Vital Signs Vital Signs Date Time Temp Pulse Resp B/P (MAP) Pulse Ox O2 Delivery O2 Flow Rate FiO2 08/19/18 09:43 Nasal Cannula 2.00 08/19/18 08:00 98.6 99 20 98/63 (75) 96 Capillary Refill : Less Than 3 Seconds General Appearance: No Apparent Distress, WD/WN, Chronically ill Respiratory: Chest Non Tender, Lungs Clear, Normal Breath Sounds, No Accessory Muscle Use, No Respiratory Distress Cardiovascular: Regular Rate, Rhythm, No Edema, No Gallop, No JVD, No Murmur, Normal Peripheral Pulses Neurologic/Psychiatric: Alert, Oriented x3, No Motor/Sensory Deficits, Normal Mood/Affect Skin: Normal Color, Warm/Dry Results/Procedures Lab Laboratory Tests 08/19/18 05:20 Patient resulted labs reviewed. Assessment/Plan Assessment and Plan Assess & Plan/Chief Complaint Assessment: Amputation of the left second toe. POD # 1 Partial amputation of the left hallux toe POD # 1 Diabetes mellitus on insulin [id number] Noncompliance Plan: PICC line placement IV antibiotics Dressing changes Appreciate Dr. Carolina Diagnosis/Problems Diagnosis/Problems (1) Gangrene of toe of left foot Status: Acute (2) Skin ulcer of right great toe Status: Chronic Qualifiers: Non-pressure ulcer stage: unspecified non-pressure ulcer stage Qualified Codes: L97.519 - Non-pressure chronic ulcer of other part of right foot with unspecified severity (3) Cellulitis of left foot Status: Acute (4) Uncontrolled diabetes mellitus Status: Chronic Qualifiers: Diabetes mellitus type: type 2 Glycemic state: with hyperglycemia Qualified Codes: E11.65 - Type 2 diabetes mellitus with hyperglycemia Clinical Quality Measures DVT/VTE Risk/Contraindication: Risk Factor Score Per Nursin RFS Level Per Nursing on Admit: 2=Moderate DANNY KHAN DO Aug 19, 2018 10:54
[2018-08-19] MEDS ORDERED: SENNOSIDES 8.6 MG (SENOKOT) TAB PO NR (11:00)
[2018-08-19] MEDS ORDERED: DOCUSATE SODIUM 100 MG (COLACE) CAP PO NR (11:00)
[2018-08-19] MEDS ORDERED: POLYETHYLENE GLYCOL 17 GM (MIRALAX) PACK PO NR (11:00)
--- NOTE | 2018-08-19 11:30 | Physical Therapy Evaluation ---
PT Evaluation-General Medical Diagnosis Admission Date Aug 18, 2018 at 01:08 Medical Diagnosis: toe amputation left foot Onset Date: Aug 18, 2018 Therapy Diagnosis Therapy Diagnosis: Debility/General Weakness Height/Weight Height (Feet): 5 Height (Inches): 5.00 Weight (Pounds): 221 Weight (Ounces): 4.8 Precautions Precautions/Isolations: Fall Prevention, Standard Precautions Weight Bear Status Right Lower Extremity: Right Full Weight Bearing Left Lower Extremity: Left Partial Weight Bearing She is to ambulate only while in surgical splint shoes, bilaterally Referral Physician: Soniya Carolina DPM Reason for Referral: Evaluation/Treatment Medical History Additional Medical History Surgeries: Abdominal, Section, Eye Surgery Cardiac: Hypertension Neurological: Neuropathy : No Gastrointestinal: Gastroesophageal Reflux Endocrine: Diabetes, Insulin dep Are Your Blood Sugars Over 250: Yes HEENT: Macular Degeneration Psychosocial: Anxiety Skin/Integumentary: Recent Skin Changes History of Blood Disorders: No Current History Patient had 2nd digit of left foot removed on 08/18/18. Reviewed History: Yes Social History Home: Apartment Current Living Status: Children Entry Into Home: Stairs With Railing PT Steps Into Home: 10 PT Steps Inside Home: 0 Prior/Core FIM Prior Level of Function Functional [place] Measure 0=Not Assessed/NA 4=Minimal Assistance 1=Total Assistance 5=Supervision or Setup 2=Maximal Assistance 6=Modified [place] 3=Moderate Assistance 7=Complete IndependenceIRFPAI Quality Coding Scale 6 Independent with activity with or without an assistive device 5 Patient requires set up or clean up by helper. Patient completes activity by themselves 4 Supervision or touching assist (CGA). [place] provide cues , steadying assist 3 The helper provides less than half the effort to complete the activity 2 The helper provides more than half the effort to complete the activity 1 Dependent. The helper does all the effort to complete an activity 7 Patient refused to complete or attempt activity 9 The patient did not perform the activity before the current illness or injury 88 Not attempted due to Medical conditions or safety concerns Bed Mobility: 7 Transfers (B,C,W/C) (FIM): 7 Gait: 7 Stairs: 7 PT Evaluation-Current Subjective Pt awake in bed watching tv when PT arrived. Pt agreed to evaluation by PT. Pain Numeric Pain Scale: 0-No Pain Location: No Pain Reported, Left Location Body Site: Foot Objective Patient Orientation: Normal For Age Attachments: IV ROM/Strength ROM Upper Extremities WNL ROM Lower Extremities WNL Strength Upper Extremities WNL Strength Lower Extremities 4/5 BLE Integumentary/Posture Bowel Incontinence: No Bladder Incontinence: No Neuromuscular (Tone, Coordination, Reflexes) NT Sensory Hearing: Functional Sensation Right Upper Extremit: Intact Sensation Left Upper Extremity: Intact Sensation Right Lower Extremit: Intact Sensation Left Lower Extremity: Intact Transfers Functional [place] Measure 0=Not Assessed/NA 4=Minimal Assistance 1=Total Assistance 5=Supervision or Setup 2=Maximal Assistance 6=Modified [place] 3=Moderate Assistance 7=Complete [place] Transfers (B, C, W/C) (FIM): 6 Scootin Rollin Supine to/from Sit: 6 Sit to/from Stand: 6 Gait Mode of Locomotion: Walk Anticipated Mode of Locomotion: Walk Gait (FIM): 2 Distance (FIM): 6=380-01 ft Distance: 100' Gait Level of Assist: 5 Gait Persons Needed: 1 Gait Assistive Device: FWW Balance Sitting Static: Normal Sitting Dynamic: Normal Standing Static: Normal Standing Dynamic: Normal Assessment/Needs Patient was able to ambulate for 100' with a FWW requiring SBA. Pt reported no dizziness when coming to a stand or while ambulating. Patient is modified independent with bed mobility and transferring out of bed. Pt instructed to use her arms with FWW during ambulation and that she is TTWB. Rehab Potential: Good PT Half-Way Goals Supervisor Mails Goals PT Supervisor Mails Goals Time Frame: Aug 26, 2018 Transfers (B,C,W/C) (FIM): 7 Gait (FIM): 6 Gait distance (FIM): 3=150 ft Distance: >150 Gait Level of Assist: 6 Gait Assistive Device: FWW PT Plan Problem List Problem List: Activity Tolerance, Functional Strength, Safety, Balance, Gait, Transfer, Bed Mobility Treatment/Plan Treatment Plan: Continue Plan of Care Treatment Plan: Bed Mobility, Education, Functional Strength, Gait, Safety, Therapeutic Exercise, Transfers Treatment Duration: Aug 26, 2018 Frequency: 6 times per week Estimated Hrs Per Day: .25 hour per day (15-30') Patient and/or Family Agrees t: Yes Safety Risks/Education Patient Education: Gait Training, Transfer Techniques, Steps, Reviewed Precautions, Correct Positioning, Reviewed Don/Doff Brace, Safety Issues Teaching Recipient: Patient Teaching Methods: Demonstration Response to Teaching: Verbalize Understanding Discharge Recommendations Plan Patient will perform bed mobility and transfer training, balance and endurance training, functional strengthening, stair training, gait training, and education , to improve functional mobility and independence at home. Therapy D/C Recommendations: Home w/ Family Support Time/GCodes Time In: 1035 Time Out: 1100 Total Billed Treatment Time: 25 Total Billed Treatment 1 visit EVM - 15 GT 10' EDIN ARSHAD PT Aug 19, 2018 11:30
[2018-08-19 12:00] VITALS: BP 114/74
[2018-08-19 15:50] VITALS: BP 122/59
--- NOTE | 2018-08-19 17:32 | Podiatry Progress Note ---
Standard Progress Note Progress Notes/Assess & Plan Date Seen by a Provider: Aug 19, 2018 Time Seen by a Provider: 17:27 Progress/Assessment & Plan POD #1 The patient reports no foot pain. She is having "pain in the shoulders due to fibromyalgia". No reported F/C/N/V. The dressing is intact to the left foot with minimal bleeding strike through. A/P: S/P amputation of the left 2nd toe and partial amputation of the left hallux - Dressing left intact until tomorrow. She is to stay non-weight bearing left foot. Awaiting culture results. Final Diagnosis Dry Gangrene, left foot, Cellulitis, Osteomyelitis left hallux. BUTCH BLUM DPM Aug 19, 2018 17:32
[2018-08-19] MEDS: DAKIN'S 1/2 STRENGTH (0.25%) 473 ML BTL TOP SCH (18:02)
[2018-08-19 19:35] VITALS: BP 112/59
[2018-08-19] MEDS ORDERED: inSUlin DETERMIR 1 UNIT/0.01 ML (LEVEMIR) CHARGE PER UNIT SQ SCH (21:00)
[2018-08-19] MEDS: DOCUSATE SODIUM 100 MG (COLACE) CAP PO SCH (21:47)
[2018-08-19] MEDS: POLYETHYLENE GLYCOL 17 GM (MIRALAX) PACK PO SCH (21:48)
[2018-08-20 00:09] VITALS: BP 120/58
[2018-08-20] MEDS: fentaNYL INJECTION 100 MCG/2 ML AMP IV PRN ×2 (02:19→12:53)
[2018-08-20 04:09] VITALS: BP 101/58
[2018-08-20] MEDS: PIPERACILLIN SODIUM/TAZOBACTAM 4.5 GM in NS (IVPB) 100 ML IV SCH ×3 (06:07→21:19)
[2018-08-20] MEDS: inSUlin ASPART (NovoLOG) 1 UNIT/0.01 ML (CHARGE PER UNIT) SC SCH ×4 (06:39→21:18)
[2018-08-20] MEDS: VANCOMYCIN 1500 MG/NS 500 ML IVPB IV SCH ×2 (06:52)
[2018-08-20] MEDS: METOCLOPRAMIDE 5 MG (REGLAN) TAB PO SCH ×3 (06:52→17:42)
[2018-08-20 07:24] LABS: BASOPHILS % (AUTO) 0 % (0-10); EOSINOPHILS # (AUTO) 0.1 10^3/uL (0.0-0.3); EOSINOPHILS % (AUTO) 1 % (0-10); HEMATOCRIT 25 % (35-52); HEMOGLOBIN 8.1 G/DL (11.5-16.0); LYMPHOCYTES # (AUTO) 1.9 X 10^3 (1.0-4.0); LYMPHOCYTES % (AUTO) 28 % (12-44); MEAN CORPUSCULAR HEMOGLOBIN 30 PG (25-34); MEAN CORPUSCULAR HGB CONC 32 G/DL (32-36); MEAN CORPUSCULAR VOLUME 93 FL (80-99); MEAN PLATELET VOLUME 11.7 FL (7.4-10.4); MONOCYTES # (AUTO) 0.5 X 10^3 (0.0-1.0); MONOCYTES % (AUTO) 8 % (0-12); NEUTROPHILS # (AUTO) 4.3 X 10^3 (1.8-7.8); NEUTROPHILS % (AUTO) 63 % (42-75); PLATELET COUNT 186 10^3/uL (130-400); RED BLOOD COUNT 2.68 10^6/uL (4.35-5.85); RED CELL DISTRIBUTION WIDTH 12.6 % (10.0-14.5); WHITE BLOOD COUNT 6.8 10^3/uL (4.3-11.0)
[2018-08-20] MEDS: inSUlin ASPART (NovoLOG) 1 UNIT/0.01 ML (CHARGE PER UNIT) SQ SCH ×3 (07:45→17:27)
[2018-08-20 07:55] LABS: ALBUMIN 3.2 GM/DL (3.2-4.5); BILIRUBIN,TOTAL 0.3 MG/DL (0.1-1.0); CALCIUM 8.3 MG/DL (8.5-10.1); CREATININE SERUM 1.01 MG/DL (0.60-1.30); POTASSIUM 4.1 MMOL/L (3.6-5.0); TOTAL PROTEIN 6.1 GM/DL (6.4-8.2)
[2018-08-20 08:00] VITALS: BP 133/81
[2018-08-20] MEDS: BACITRACIN OINTMENT 28 GM TUBE TOP SCH ×2 (09:00→20:17)
[2018-08-20] MEDS: DAKIN'S 1/2 STRENGTH (0.25%) 473 ML BTL TOP SCH (09:00)
--- NOTE | 2018-08-20 09:55 | Progress Note-Hospitalist ---
KHANDANNY 08/20/18 0955: Subjective HPI/CC On Admission Date Seen by Provider: Aug 20, 2018 Time Seen by Provider: 09:15 CC: Left gangrenous toes HPI: This is a 47yoWF clinic patient of Dr Catherine and Dr Mckeon in wound care who presented to the ER w/left foot pain and redness and swelling and fever and found to also have gangrenous toes in need of amputation. Patient is currently in moderate pain but otherwise having no CP or SOB. Dr Carolina will see the patient in consultation and will plan for surgery this afternoon. Surgical benefits outweigh medical risks. Subjective/Events-last exam Awaiting wound cultures before DC since maintained on broad spectrum in the meantime Will have outpt IV abx Pain is controlled High sugars now are too low so will decrease insulin Review of Systems Musculoskeletal: foot pain Focused Exam Lactate Level 08/18/18 00:10: Lactic Acid Level 0.95 Objective Exam Vital Signs Vital Signs Date Time Temp Pulse Resp B/P (MAP) Pulse Ox O2 Delivery O2 Flow Rate FiO2 08/20/18 08:00 98.4 83 20 133/81 (98) 96 Room Air 08/19/18 20:46 2.00 Capillary Refill : Less Than 3 Seconds General Appearance: No Apparent Distress, WD/WN Respiratory: Chest Non Tender, Lungs Clear, Normal Breath Sounds, No Accessory Muscle Use, No Respiratory Distress Cardiovascular: Regular Rate, Rhythm, No Edema, No Gallop, No JVD, No Murmur, Normal Peripheral Pulses Extremity: Other (improved left foot cellulitis with drainage slightly through the dressing) Neurologic/Psychiatric: Alert, Oriented x3, No Motor/Sensory Deficits, Normal Mood/Affect Results/Procedures Lab Laboratory Tests 08/20/18 07:04 Patient resulted labs reviewed. Assessment/Plan Assessment and Plan Assess & Plan/Chief Complaint Assessment: Amputation of the left second toe. POD # 2 Partial amputation of the left hallux toe POD # 2 Diabetes mellitus on insulin [id number] Noncompliance Plan: PICC line placement will be maintained IV antibiotics once Cx is completed Dressing changes to continue per Dr Carolina Appreciate Dr. Carolina Diagnosis/Problems Diagnosis/Problems (1) Gangrene of toe of left foot Status: Acute (2) Skin ulcer of right great toe Status: Chronic Qualifiers: Non-pressure ulcer stage: unspecified non-pressure ulcer stage Qualified Codes: L97.519 - Non-pressure chronic ulcer of other part of right foot with unspecified severity (3) Cellulitis of left foot Status: Acute (4) Uncontrolled diabetes mellitus Status: Chronic Qualifiers: Diabetes mellitus type: type 2 Glycemic state: with hyperglycemia Qualified Codes: E11.65 - Type 2 diabetes mellitus with hyperglycemia Clinical Quality Measures DVT/VTE Risk/Contraindication: Risk Factor Score Per Nursin RFS Level Per Nursing on Admit: 2=Moderate MEETA JAIN MED STUDENT 08/20/18 1043: Subjective Subjective/Events-last exam Patient is feeling much better and pain is under control She states that she finally had a BM She has been ambulating She reports no other symptoms Objective Exam General Appearance: No Apparent Distress, WD/WN Respiratory: Chest Non Tender, Lungs Clear, Normal Breath Sounds, No Accessory Muscle Use, No Respiratory Distress Cardiovascular: Regular Rate, Rhythm, No Edema, No Gallop, No JVD, No Murmur Neurologic/Psychiatric: Alert, Oriented x3, No Motor/Sensory Deficits, Normal Mood/Affect Skin: Normal Color, Warm/Dry Assessment/Plan Assessment and Plan Assess & Plan/Chief Complaint Assessment: 1) Recovery from amputation of left toe 2) Diabetes mellitus Plan: 1) Continue IV antibiotics 2) Monitor for infection DANNY KHAN DO Aug 20, 2018 09:55 MEETA JAIN MED STUDENT Aug 20, 2018 10:43
[2018-08-20] MEDS: SENNOSIDES 8.6 MG (SENOKOT) TAB PO SCH (10:03)
[2018-08-20] MEDS: DOCUSATE SODIUM 100 MG (COLACE) CAP PO SCH ×2 (10:03→20:10)
[2018-08-20] MEDS: GABAPENTIN 600 MG (NEURONTIN) TAB PO SCH ×3 (10:04→20:11)
--- NOTE | 2018-08-20 10:43 | Physical Therapy Daily Note ---
PT Daily Note-Current Subjective Pt awake in bed watching tv when PT arrived. Pt reported has been getting up and using restroom without a FWW. Pt was advised by PT to continue using FWW and to follow physician weight bearing restrictions. Pt agreed to continue with therapy. Mental Status Patient Orientation: Normal For Age Attachments: IV Transfers Functional [place] Measure 0=Not Assessed/NA 4=Minimal Assistance 1=Total Assistance 5=Supervision or Setup 2=Maximal Assistance 6=Modified [place] 3=Moderate Assistance 7=Complete IndependenceIRFPAI Quality Coding Scale 6 Independent with activity with or without an assistive device 5 Patient requires set up or clean up by helper. Patient completes activity by themselves 4 Supervision or touching assist (CGA). [place] provide cues , steadying assist 3 The helper provides less than half the effort to complete the activity 2 The helper provides more than half the effort to complete the activity 1 Dependent. The helper does all the effort to complete an activity 7 Patient refused to complete or attempt activity 9 The patient did not perform the activity before the current illness or injury 88 Not attempted due to Medical conditions or safety concerns Transfers (B, C, W/C) (FIM): 6 Scootin Rollin Supine to/from Sit: 6 Sit to/from Stand: 6 Weight Bearing Right Lower Extremity: Right Full Weight Bearing Left Lower Extremity: Left Partial Weight Bearing She is to ambulate only while in surgical splint shoes, bilaterally Gait Training Gait (FIM): 5 Distance (FIM): 3=150 ft Distance: 150' Gait Level of Assist: 5 Gait Assistive Device: FWW Exercises Seated Therapy Exercises: Ankle pumps Assessment Pt was able to ambulate for 150' with FWW requiring SBA. Patient stated she will not be able to use FWW at home due to confined spaces throughout the home. Pt returned to recliner in room and reminded to continue to use FWW till Physician lifts WB restrictions. PT Geodetic Surveyor Technologist Goals [facility] Goals PT Geodetic Surveyor Technologist Goals Time Frame: Aug 26, 2018 Transfers (B,C,W/C) (FIM): 7 Gait (FIM): 6 Gait distance (FIM): 3=150 ft Distance: >150 Gait Level of Assist: 6 Gait Assistive Device: FWW PT Plan Problem List Problem List: Activity Tolerance, Functional Strength, Safety, Gait Treatment/Plan Treatment Plan: Continue Plan of Care Treatment Plan: Bed Mobility, Education, Functional Strength, Gait, Safety, Therapeutic Exercise, Transfers Treatment Duration: Aug 26, 2018 Frequency: 6 times per week Estimated Hrs Per Day: .25 hour per day (15-30') Patient and/or Family Agrees t: Yes Time/GCodes Time In: 957 Time Out: 1014 Total Billed Treatment Time: 17 Total Billed Treatment 1 visit FA - 17' AMITA ATKINSON PT Aug 20, 2018 10:42
[2018-08-20 12:00] VITALS: BP 145/74
[2018-08-20] MEDS: SILVASORB GEL 1.5 OZ TP SCH (12:01)
[2018-08-20 15:49] VITALS: BP 117/76
[2018-08-20] MEDS: ACETAMINOPHEN 500 MG TAB (TYLENOL) PO PRN (17:42)
--- NOTE | 2018-08-20 17:58 | Podiatry Progress Note ---
Standard Progress Note Progress Notes/Assess & Plan Date Seen by a Provider: Aug 20, 2018 Time Seen by a Provider: 17:55 Progress/Assessment & Plan POD #2 The patient reports no foot pain. No F/C/N/V. The dressing is intact to the left foot with minimal bleeding strike through. There is some maceration to the 2nd digit amputation site, left foot. There is decreased left foot erythema, no mal-odor. The incisions are well coapted. No proximal streaking. A/P: S/P amputation of the left 2nd toe and partial amputation of the left hallux - Sterile dressing change. She is to stay non-weight bearing left foot. Awaiting culture results. Final Diagnosis Cellulitis left foot, wet gangrene, diabetic neuropathy BUTCH BLUM DPM Aug 20, 2018 17:57
[2018-08-20 19:10] VITALS: BP 129/80
[2018-08-20] MEDS: POLYETHYLENE GLYCOL 17 GM (MIRALAX) PACK PO SCH (20:12)
[2018-08-20] MEDS ORDERED: inSUlin DETERMIR 1 UNIT/0.01 ML (LEVEMIR) CHARGE PER UNIT SQ ONE ×2 (21:00→21:08)
[2018-08-20] MEDS ORDERED: inSUlin DETERMIR 1 UNIT/0.01 ML (LEVEMIR) CHARGE PER UNIT SQ SCH (21:00)
[2018-08-21] VITALS: BP 121/65
[2018-08-21 04:00] VITALS: BP 106/51
[2018-08-21 04:29] LABS: BASOPHILS % (AUTO) 0 % (0-10); EOSINOPHILS # (AUTO) 0.1 10^3/uL (0.0-0.3); EOSINOPHILS % (AUTO) 1 % (0-10); HEMATOCRIT 26 % (35-52); HEMOGLOBIN 8.3 G/DL (11.5-16.0); LYMPHOCYTES # (AUTO) 1.8 X 10^3 (1.0-4.0); LYMPHOCYTES % (AUTO) 29 % (12-44); MEAN CORPUSCULAR HEMOGLOBIN 30 PG (25-34); MEAN CORPUSCULAR HGB CONC 32 G/DL (32-36); MEAN CORPUSCULAR VOLUME 94 FL (80-99); MEAN PLATELET VOLUME 12.2 FL (7.4-10.4); MONOCYTES # (AUTO) 0.5 X 10^3 (0.0-1.0); MONOCYTES % (AUTO) 8 % (0-12); NEUTROPHILS # (AUTO) 3.9 X 10^3 (1.8-7.8); NEUTROPHILS % (AUTO) 62 % (42-75); PLATELET COUNT 180 10^3/uL (130-400); RED BLOOD COUNT 2.76 10^6/uL (4.35-5.85); RED CELL DISTRIBUTION WIDTH 12.3 % (10.0-14.5); WHITE BLOOD COUNT 6.4 10^3/uL (4.3-11.0)
[2018-08-21 04:52] LABS: ALANINE AMINOTRANSFERASE 26 U/L (0-55); ALBUMIN 3.1 GM/DL (3.2-4.5); ALKALINE PHOSPHATASE 44 U/L (40-136); BILIRUBIN,TOTAL 0.3 MG/DL (0.1-1.0); BUN/CREATININE RATIO 16; CALCIUM 8.2 MG/DL (8.5-10.1); CARBON DIOXIDE 24 MMOL/L (21-32); CHLORIDE 106 MMOL/L (98-107); CREATININE SERUM 0.93 MG/DL (0.60-1.30); GFR ESTIMATED > 60; GLUCOSE 195 MG/DL (70-105); POTASSIUM 4.4 MMOL/L (3.6-5.0); SODIUM 138 MMOL/L (135-145); TOTAL PROTEIN 5.9 GM/DL (6.4-8.2)
[2018-08-21 05:01] LABS: VANCOMYCIN,TROUGH 8.4 UG/ML (10.0-20.0)
[2018-08-21] MEDS: inSUlin ASPART (NovoLOG) 1 UNIT/0.01 ML (CHARGE PER UNIT) SC SCH ×4 (05:03→20:37)
[2018-08-21] MEDS: PIPERACILLIN SODIUM/TAZOBACTAM 4.5 GM in NS (IVPB) 100 ML IV SCH (05:39)
[2018-08-21] MEDS: inSUlin ASPART (NovoLOG) 1 UNIT/0.01 ML (CHARGE PER UNIT) SQ SCH ×3 (05:39→17:54)
[2018-08-21] MEDS: METOCLOPRAMIDE 5 MG (REGLAN) TAB PO SCH ×2 (05:39→12:02)
[2018-08-21] MEDS ORDERED: TROUGH ORDER-PHARMACY XX NR (06:00)
[2018-08-21] MEDS: DOCUSATE SODIUM 100 MG (COLACE) CAP PO SCH ×2 (08:16→20:36)
[2018-08-21] MEDS: GABAPENTIN 600 MG (NEURONTIN) TAB PO SCH ×3 (08:16→20:36)
[2018-08-21] MEDS: SENNOSIDES 8.6 MG (SENOKOT) TAB PO SCH (08:16)
[2018-08-21 08:35] VITALS: BP 112/54
[2018-08-21] MEDS: BACITRACIN OINTMENT 28 GM TUBE TOP SCH ×2 (09:00→20:36)
[2018-08-21] MEDS: VANCOMYCIN 1500 MG/NS 500 ML IVPB IV SCH ×2 (09:16)
[2018-08-21] MEDS: SILVASORB GEL 1.5 OZ TP SCH (10:00)
--- NOTE | 2018-08-21 10:36 | Physical Therapy Daily Note ---
PT Daily Note-Current Subjective Pt asleep in bed when PT arrived. Pt woke to PT greeting and stated she had been woken multiple times throughout the entire night. Pt agreed to get up and walk for PT. Pain Numeric Pain Scale: 0-No Pain Location: No Pain Reported, Left Location Body Site: Foot Pain Description: Acute Mental Status Patient Orientation: Normal For Age Attachments: IV Transfers Functional [place] Measure 0=Not Assessed/NA 4=Minimal Assistance 1=Total Assistance 5=Supervision or Setup 2=Maximal Assistance 6=Modified [place] 3=Moderate Assistance 7=Complete IndependenceIRFPAI Quality Coding Scale 6 Independent with activity with or without an assistive device 5 Patient requires set up or clean up by helper. Patient completes activity by themselves 4 Supervision or touching assist (CGA). [place] provide cues , steadying assist 3 The helper provides less than half the effort to complete the activity 2 The helper provides more than half the effort to complete the activity 1 Dependent. The helper does all the effort to complete an activity 7 Patient refused to complete or attempt activity 9 The patient did not perform the activity before the current illness or injury 88 Not attempted due to Medical conditions or safety concerns Transfers (B, C, W/C) (FIM): 6 Scootin Rollin Supine to/from Sit: 6 Sit to/from Stand: 6 Weight Bearing Right Lower Extremity: Right Full Weight Bearing Left Lower Extremity: Left Partial Weight Bearing She is to ambulate only while in surgical splint shoes, bilaterally Gait Training Gait (FIM): 2 Distance (FIM): 0=272-64 ft Distance: 100' Gait Level of Assist: 6 Gait Persons Needed: 1 Gait Assistive Device: FWW PT informed she was heel contact only with L LE. Exercises Seated Therapy Exercises: Ankle pumps Seated Reps: 10 Assessment Pt was able to ambulate with FWW and is MOD I. Nursing also reported Pt has been getting up to use restroom on her own. Pt informed of heel contact precaution and that she needs to use a FWW at home. Pt stated "that is not going to happen" when she was informed of precaution. Pt is able to get up and ambulate Mod I as long as she is compliant with precautions. PT Acid Remover Goals Custodial Goals PT Custodial Goals Time Frame: Aug 26, 2018 Transfers (B,C,W/C) (FIM): 7 Gait (FIM): 6 Gait distance (FIM): 3=150 ft Distance: >150 Gait Level of Assist: 6 Gait Assistive Device: FWW PT Plan Treatment/Plan Treatment Plan: Discontinue PT Treatment Plan: Bed Mobility, Education, Functional Strength, Gait, Safety, Therapeutic Exercise, Transfers Treatment Duration: Aug 26, 2018 Frequency: 6 times per week Estimated Hrs Per Day: .25 hour per day (15-30') Patient and/or Family Agrees t: Yes Time/GCodes Time In: 948 Time Out: 1007 Total Billed Treatment Time: 19 Total Billed Treatment 1 Visit FA - 19' AMITA ATKINSON PT Aug 21, 2018 10:36
--- NOTE | 2018-08-21 10:42 | Progress Note-Hospitalist ---
DANNY KHAN 08/21/18 1042: Subjective HPI/CC On Admission Date Seen by Provider: Aug 21, 2018 Time Seen by Provider: 10:30 CC: Left gangrenous toes HPI: This is a 47yoWF clinic patient of Dr Catherine and Dr Mckeon in wound care who presented to the ER w/left foot pain and redness and swelling and fever and found to also have gangrenous toes in need of amputation. Patient is currently in moderate pain but otherwise having no CP or SOB. Dr Carolina will see the patient in consultation and will plan for surgery this afternoon. Surgical benefits outweigh medical risks. Subjective/Events-last exam SSE along with magcitrate ordered for continued constipation DC planning with DR Carolina Cultures are pending Objective Exam Vital Signs Vital Signs Date Time Temp Pulse Resp B/P (MAP) Pulse Ox O2 Delivery O2 Flow Rate FiO2 08/21/18 20:56 97.9 91 20 154/75 (101) 96 Room Air 08/19/18 20:46 2.00 Capillary Refill : Less Than 3 Seconds General Appearance: No Apparent Distress, WD/WN, Chronically ill Respiratory: Chest Non Tender, Lungs Clear, Normal Breath Sounds, No Accessory Muscle Use, No Respiratory Distress Cardiovascular: Regular Rate, Rhythm, No Edema, No Gallop, No JVD, No Murmur, Normal Peripheral Pulses Neurologic/Psychiatric: Alert, Oriented x3, No Motor/Sensory Deficits, Normal Mood/Affect Results/Procedures Lab Laboratory Tests 08/21/18 03:50 Patient resulted labs reviewed. Assessment/Plan Assessment and Plan Assess & Plan/Chief Complaint Assessment: Amputation of the left second toe. POD # 3 Partial amputation of the left hallux toe POD # 3 Diabetes mellitus on insulin [id number] Noncompliance Plan: Dressing changes to continue per Dr Caity Wolfe Diagnosis/Problems Diagnosis/Problems (1) Gangrene of toe of left foot Status: Acute (2) Skin ulcer of right great toe Status: Chronic Qualifiers: Non-pressure ulcer stage: unspecified non-pressure ulcer stage Qualified Codes: L97.519 - Non-pressure chronic ulcer of other part of right foot with unspecified severity (3) Cellulitis of left foot Status: Acute (4) Uncontrolled diabetes mellitus Status: Chronic Qualifiers: Diabetes mellitus type: type 2 Glycemic state: with hyperglycemia Qualified Codes: E11.65 - Type 2 diabetes mellitus with hyperglycemia Clinical Quality Measures DVT/VTE Risk/Contraindication: Risk Factor Score Per Nursin RFS Level Per Nursing on Admit: 2=Moderate MEETA JAIN MED STUDENT 08/21/18 1112: Subjective Subjective/Events-last exam Patient is reporting mild foot pain She is experiencing nasal congestion She has not had a BM in 2 days She is still experiencing headaches which she attributes to uncontrolled glucose levels Objective Exam General Appearance: No Apparent Distress, WD/WN Respiratory: Chest Non Tender, Lungs Clear, Normal Breath Sounds, No Accessory Muscle Use, No Respiratory Distress Cardiovascular: Regular Rate, Rhythm, No Edema, No Gallop, No JVD, No Murmur, Normal Peripheral Pulses Neurologic/Psychiatric: Alert, Oriented x3, No Motor/Sensory Deficits, Normal Mood/Affect Skin: Normal Color, Cool Assessment/Plan Assessment and Plan Assess & Plan/Chief Complaint Assessment: 1) Amputation of left second toe 2) Uncontrolled diabetes mellitus Plan: 1) Continue abx and pain control 2) Monitor blood glucose DANNY KHAN DO Aug 21, 2018 10:42 MEETA JAIN MED STUDENT Aug 21, 2018 11:12
[2018-08-21] MEDS ORDERED: MAGNESIUM CITRATE 300 ML BTL PO NR (10:45)
[2018-08-21 12:23] VITALS: BP 137/72
[2018-08-21] MEDS ORDERED: LINE600T5 PO (14:03)
[2018-08-21] MEDS ORDERED: LINEZOLID (ZYVOX) 600 MG TAB PO NR (14:15)
[2018-08-21 15:53] VITALS: BP 158/71
[2018-08-21] MEDS: DAKIN'S 1/2 STRENGTH (0.25%) 473 ML BTL TOP SCH (16:00)
--- NOTE | 2018-08-21 16:36 | Podiatry Progress Note ---
Standard Progress Note Progress Notes/Assess & Plan Date Seen by a Provider: Aug 21, 2018 Time Seen by a Provider: 16:30 Progress/Assessment & Plan POD #3 The patient reports no foot pain. No F/C/N/V. The dressing is intact to the left foot with no bleeding strike through. There is some maceration to the 2nd digit amputation site, left foot. There is decreased left foot erythema, no mal-odor. The incisions remains well coapted with sutures intact. No proximal streaking. A/P: S/P amputation of the left 2nd toe and partial amputation of the left hallux - Sterile dressing change. She is to stay non-weight bearing left foot. Plan to discharge patient tomorrow. She will need dressing changed every other day with betadine and sterile gauze, Kerlix. She is to follow up in the [facility] foot clinic on FridayAug 28. Rx at [facility] pharmacy for Zyvox . Final Diagnosis Diabetic Neuropathy, Dry Gangrene, Osteomyelitis, left foot BUTCH BLUM DPM Aug 21, 2018 16:36
[2018-08-21] MEDS ORDERED: VANCOMYCIN 1500 MG/NS 500 ML IVPB IV SCH ×2 (19:00)
[2018-08-21] MEDS: POLYETHYLENE GLYCOL 17 GM (MIRALAX) PACK PO SCH (20:37)
[2018-08-21 20:56] VITALS: BP 154/75
[2018-08-21] MEDS ORDERED: LINEZOLID (ZYVOX) 600 MG TAB PO SCH (21:00)
[2018-08-21] MEDS: ACETAMINOPHEN 500 MG TAB (TYLENOL) PO PRN (21:07)
--- NOTE | 2018-08-21 21:34 | Discharge Summary-Hospitalist ---
Diagnosis/Chief Complaint Date of Admission Aug 18, 2018 at 01:08 Date of Discharge Discharge Date: Aug 21, 2018 Admission Diagnosis Assessment: Left toes gangrenous in need of amputation DM OOC Non-compliance Left foot cellulitis Plan: Surgical benefits outweigh medical risks. Home meds Discharge Diagnosis (1) Gangrene of toe of left foot Status: Acute (2) Skin ulcer of right great toe Status: Chronic (3) Cellulitis of left foot Status: Acute (4) Uncontrolled diabetes mellitus Status: Chronic Discharge Summary Discharge Physical Exam Allergies: Coded Allergies: clarithromycin (Verified Allergy, Unknown, 08/17/18) hydrocodone (Verified Allergy, Unknown, 08/17/18) Vitals & I&Os Vital Signs Date Time Temp Pulse Resp B/P (MAP) Pulse Ox O2 Delivery O2 Flow Rate FiO2 08/21/18 20:56 97.9 91 20 154/75 (101) 96 Room Air 08/19/18 20:46 2.00 General Appearance: No Apparent Distress, WD/WN Respiratory: Chest Non Tender, Lungs Clear, Normal Breath Sounds, No Accessory Muscle Use, No Respiratory Distress Cardiovascular: Regular Rate, Rhythm, No Edema, No Gallop, No JVD, No Murmur, Normal Peripheral Pulses Neurologic/Psychiatric: Alert, Oriented x3, No Motor/Sensory Deficits, Normal Mood/Affect Hospital Course Hospital course: patient had an uneventful hospital course after admitted for severe left foot cellulitis with 2-3 toes were gangrenous requiring amputation by DR Carolina. Labs were monitored and pain was controlled and aggressive insulin was maintained along with abx empirically. Pt was stable throughout the course and she was closely monitored. Dr Carolina arranged for wound care at [facility] with f/u with him at that location and Zyvox was initiated and Reglan, Celexa and Flexeril were all held due to drug interactions with the Zyvox. She will see [facility] on Friday with close f/u but poor prognosis remains due to brittle DM due to non-compliance and overall severity of her DM requiring amputations at age of 47. Labs (last 24 hrs) Laboratory Tests 08/21/18 03:50: White Blood Count 6.4, Red Blood Count 2.76L, Hemoglobin 8.3L, Hematocrit 26L, Mean Corpuscular Volume 94, Mean Corpuscular Hemoglobin 30, Mean Corpuscular Hemoglobin Concent 32, Red Cell Distribution Width 12.3, Platelet Count 180, Mean Platelet Volume 12.2H, Neutrophils (%) (Auto) 62, Lymphocytes (%) (Auto) 29 , Monocytes (%) (Auto) 8, Eosinophils (%) (Auto) 1, Basophils (%) (Auto) 0, Neutrophils # (Auto) 3.9, Lymphocytes # (Auto) 1.8, Monocytes # (Auto) 0.5, Eosinophils # (Auto) 0.1, Basophils # (Auto) 0.0, Sodium Level 138, Potassium Level 4.4, Chloride Level 106, Carbon Dioxide Level 24, Anion Gap 8, Blood Urea Nitrogen 15, Creatinine 0.93, Estimat Glomerular Filtration Rate > 60, BUN/ Creatinine Ratio 16, Glucose Level 195H, Calcium Level 8.2L, Corrected Calcium 8.9, Total Bilirubin 0.3, Aspartate Amino Transf (AST/SGOT) 29, Alanine Aminotransferase (ALT/SGPT) 26, Alkaline Phosphatase 44, Total Protein 5.9L, Albumin 3.1L, Vancomycin Level Trough 8.4L 08/21/18 05:26: Glucometer 211H 08/21/18 11:30: Glucometer 336H 08/21/18 15:18: Glucometer 185H 08/21/18 20:24: Glucometer 364H Microbiology 08/18/18 Blood Culture - Preliminary, Resulted No growth 08/18/18 MRSA Screen - Final, Complete MRSA not isolated 08/18/18 Gram Stain - Final, Resulted 08/18/18 Anaerobic Culture - Preliminary, Resulted No anaerobes isolated 08/18/18 Surgical Culture - Final, Resulted Corynebacterium striatum Corynebacterium amycolatum See Report 08/18/18 Fungal Culture 1 - Preliminary, Resulted Culture In Progress Patient resulted labs reviewed. Pending Labs Laboratory Tests 08/21/18 15:18: Glucometer 185 08/21/18 20:24: Glucometer 364 Discussion & Recommendations Discharge Planning: <30 minutes discharge planning Discharge Home Medications: Active Scripts Active Zyvox (Linezolid) 600 Mg Tablet 600 Mg PO Q12H Reported Cyclobenzaprine HCl 10 Mg Tablet 10 Mg PO TID PRN Ventolin Hfa (Albuterol Sulfate) 1 Puff Puff 2 Puff IH Q6H PRN 1 PUFF = 90 MCG Lipitor (Atorvastatin Calcium) 20 Mg Tablet 20 Mg PO HS Silvadene (Silver Sulfadiazine) 20 Gm Cream..g. TP DAILY Celexa (Citalopram Hydrobromide) 40 Mg Tablet 40 Mg PO DAILY Doxycycline Hyclate 100 Mg Tablet 100 Mg PO BID 10 Days 10 DAY SUPPLY FILLED 08-12-18 Gabapentin 600 Mg Tablet 1,200 Mg PO TID TAKES 2 (600MG) TABLETS Humalog Kwikpen (Insulin Lispro) 100 Unit/1 Ml Insuln.pen 30 Unit SQ TIDAC Levemir Flextouch (Insulin Detemir) 100 Unit/1 Ml Insuln.pen 30 Unit SQ BID Metoprolol Succinate 25 Mg Tab.er.24h 25 Mg PO HS Lisinopril 20 Mg Tablet 20 Mg PO HS Reglan (Metoclopramide HCl) 10 Mg Tablet 5 Mg PO TIDAC TAKES 1/2 (10MG) TABLET Tylenol Extra Strength (Acetaminophen) 500 Mg Tablet 500-1,000 Mg PO Q6H PRN Instructions to patient/family Please see electronic discharge instructions given to patient. Clinical Quality Measures DVT/VTE Risk/Contraindication: Risk Factor Score Per Nursin RFS Level Per Nursing on Admit: 2=Moderate Problem Qualifiers (1) Skin ulcer of right great toe: Non-pressure ulcer stage: unspecified non-pressure ulcer stage Qualified Codes : L97.519 - Non-pressure chronic ulcer of other part of right foot with unspecified severity (2) Uncontrolled diabetes mellitus: Diabetes mellitus type: type 2 Glycemic state: with hyperglycemia Qualified Codes: E11.65 - Type 2 diabetes mellitus with hyperglycemia DANNY KHAN DO Aug 21, 2018 21:34
[2018-08-22] VITALS: BP 122/63
[2018-08-22] MEDS: inSUlin ASPART (NovoLOG) 1 UNIT/0.01 ML (CHARGE PER UNIT) SQ SCH ×2 (05:14→11:32)
[2018-08-22] MEDS: inSUlin ASPART (NovoLOG) 1 UNIT/0.01 ML (CHARGE PER UNIT) SC SCH ×2 (05:14→11:32)
[2018-08-22 05:20] LABS: BASOPHILS % (AUTO) 0 % (0-10); EOSINOPHILS # (AUTO) 0.1 10^3/uL (0.0-0.3); EOSINOPHILS % (AUTO) 1 % (0-10); HEMATOCRIT 24 % (35-52); HEMOGLOBIN 7.9 G/DL (11.5-16.0); LYMPHOCYTES # (AUTO) 1.8 X 10^3 (1.0-4.0); LYMPHOCYTES % (AUTO) 27 % (12-44); MEAN CORPUSCULAR HEMOGLOBIN 30 PG (25-34); MEAN CORPUSCULAR HGB CONC 33 G/DL (32-36); MEAN CORPUSCULAR VOLUME 94 FL (80-99); MEAN PLATELET VOLUME 11.9 FL (7.4-10.4); MONOCYTES # (AUTO) 0.5 X 10^3 (0.0-1.0); MONOCYTES % (AUTO) 7 % (0-12); NEUTROPHILS # (AUTO) 4.3 X 10^3 (1.8-7.8); NEUTROPHILS % (AUTO) 65 % (42-75); PLATELET COUNT 195 10^3/uL (130-400); RED CELL DISTRIBUTION WIDTH 12.1 % (10.0-14.5); WHITE BLOOD COUNT 6.7 10^3/uL (4.3-11.0)
[2018-08-22 05:42] LABS: ALANINE AMINOTRANSFERASE 27 U/L (0-55); ALBUMIN 3.1 GM/DL (3.2-4.5); ALKALINE PHOSPHATASE 42 U/L (40-136); BILIRUBIN,TOTAL 0.2 MG/DL (0.1-1.0); BUN/CREATININE RATIO 18; CALCIUM 8.7 MG/DL (8.5-10.1); CARBON DIOXIDE 24 MMOL/L (21-32); CHLORIDE 103 MMOL/L (98-107); CREATININE SERUM 0.94 MG/DL (0.60-1.30); GFR ESTIMATED > 60; GLUCOSE 285 MG/DL (70-105); POTASSIUM 4.6 MMOL/L (3.6-5.0); SODIUM 136 MMOL/L (135-145)
[2018-08-22] MEDS ORDERED: LINEZOLID (ZYVOX) 600 MG TAB PO SCH (06:00)
[2018-08-22 07:48] VITALS: BP 119/57
[2018-08-22] MEDS: SENNOSIDES 8.6 MG (SENOKOT) TAB PO SCH (08:52)
[2018-08-22] MEDS: BACITRACIN OINTMENT 28 GM TUBE TOP SCH (08:52)
[2018-08-22] MEDS: GABAPENTIN 600 MG (NEURONTIN) TAB PO SCH ×2 (08:52→13:18)
[2018-08-22] MEDS: DOCUSATE SODIUM 100 MG (COLACE) CAP PO SCH (08:52)
[2018-08-22] MEDS: SILVASORB GEL 1.5 OZ TP SCH (09:37)
[2018-08-22] MEDS: DAKIN'S 1/2 STRENGTH (0.25%) 473 ML BTL TOP SCH (10:23)
[2018-08-22 14:45] VITALS: BP 119/57
[2018-08-23] MEDS ORDERED: TROUGH ORDER-PHARMACY XX NR (06:00)
== END 2018-08-22 14:50 | disposition home or self-care (01) | DRG 934 ==
LOC: EDUNIT# 23:42 → ER 23:44 → 4TH 08-18 01:08
PROVIDERS: ADMIT Internal Medicine; ATTEND Internal Medicine
PROC: 0Y6Q0Z3 Detachment at Left 1st Toe, Low, Open Approach (ICD-10-PCS; 2018-08-18)
PROC: 0Y6S0Z0 Detachment at Left 2nd Toe, Complete, Open Approach (ICD-10-PCS; principal; 2018-08-18 15:04)
DX: T25.332A Burn of third degree of left toe(s) (nail), initial encounter (principal); E11.69 Type 2 diabetes mellitus with other specified complication; M86.9 Osteomyelitis, unspecified; E11.52 Type 2 diabetes mellitus with diabetic peripheral angiopathy with gangrene; L03.116 Cellulitis of left lower limb; E11.621 Type 2 diabetes mellitus with foot ulcer; L97.524 Non-pressure chronic ulcer of other part of left foot with necrosis of bone; E11.65 Type 2 diabetes mellitus with hyperglycemia; E11.40 Type 2 diabetes mellitus with diabetic neuropathy, unspecified; E11.311 Type 2 diabetes mellitus with unspecified diabetic retinopathy with macular edema; I10 Essential (primary) hypertension; K21.9 Gastro-esophageal reflux disease without esophagitis; Z79.4 Long term (current) use of insulin; H35.30 Unspecified macular degeneration; F41.9 Anxiety disorder, unspecified; Z91.19 Patient's noncompliance with other medical treatment and regimen; J30.2 Other seasonal allergic rhinitis; E66.9 Obesity, unspecified; Z68.36 Body mass index [BMI] 36.0-36.9, adult; X16.XXXA Contact with hot heating appliances, radiators and pipes, initial encounter
CPT/HCPCS: 36415; 73620; 73630; 76937; 80053; 80202; 82962; 83605; 84703; 85025; 85610; 85652; 85730; 86141; 87040; 87070; 87075; 87077; 87081; 87101; 87185; 87205; 88305; 88311; 94760; 96374; 96375

== ENCOUNTER → 2018-08-26 | Outpatient (CLI) | payer OTHER | LOC: WOUNDCARE 13:54 | PROVIDERS: ATTEND Orthopaedic Surgery Hand Surgery | DX: T25.332A Burn of third degree of left toe(s) (nail), initial encounter (principal); T25.331A Burn of third degree of right toe(s) (nail), initial encounter; E11.621 Type 2 diabetes mellitus with foot ulcer; E11.42 Type 2 diabetes mellitus with diabetic polyneuropathy; E11.65 Type 2 diabetes mellitus with hyperglycemia | CPT/HCPCS: 16020 ==

== ENCOUNTER → 2018-09-09 | Outpatient (CLI) | payer OTHER | LOC: WOUNDCARE 14:21 | PROVIDERS: ATTEND Orthopaedic Surgery Hand Surgery | DX: E11.621 Type 2 diabetes mellitus with foot ulcer (principal); L97.512 Non-pressure chronic ulcer of other part of right foot with fat layer exposed; T25.331A Burn of third degree of right toe(s) (nail), initial encounter; E11.42 Type 2 diabetes mellitus with diabetic polyneuropathy; E11.65 Type 2 diabetes mellitus with hyperglycemia | CPT/HCPCS: 11042 ==

== ENCOUNTER → 2018-09-23 | Outpatient (CLI) | payer OTHER | LOC: WOUNDCARE 14:08 | PROVIDERS: ATTEND Orthopaedic Surgery Hand Surgery | DX: T25.331A Burn of third degree of right toe(s) (nail), initial encounter (principal); E11.621 Type 2 diabetes mellitus with foot ulcer; L97.512 Non-pressure chronic ulcer of other part of right foot with fat layer exposed; E11.42 Type 2 diabetes mellitus with diabetic polyneuropathy; E11.65 Type 2 diabetes mellitus with hyperglycemia | CPT/HCPCS: 11042 ==

== ENCOUNTER → 2018-09-30 | Outpatient (CLI) | payer OTHER | LOC: WOUNDCARE 14:43 | PROVIDERS: ATTEND Orthopaedic Surgery Hand Surgery | DX: T25.331A Burn of third degree of right toe(s) (nail), initial encounter (principal); E11.621 Type 2 diabetes mellitus with foot ulcer; L97.512 Non-pressure chronic ulcer of other part of right foot with fat layer exposed; E11.42 Type 2 diabetes mellitus with diabetic polyneuropathy; E11.65 Type 2 diabetes mellitus with hyperglycemia; T23.221A Burn of second degree of single right finger (nail) except thumb, initial encounter | CPT/HCPCS: 11042 ==

== ENCOUNTER → 2018-10-21 | Outpatient (CLI) | payer OTHER | LOC: WOUNDCARE 14:48 | PROVIDERS: ATTEND Surgery | DX: E11.621 Type 2 diabetes mellitus with foot ulcer (principal); L97.512 Non-pressure chronic ulcer of other part of right foot with fat layer exposed; E11.42 Type 2 diabetes mellitus with diabetic polyneuropathy; E11.65 Type 2 diabetes mellitus with hyperglycemia; T23.221A Burn of second degree of single right finger (nail) except thumb, initial encounter | CPT/HCPCS: 99213 ==

== ENCOUNTER → 2018-11-04 | Outpatient (CLI) | payer OTHER ==
[~2018-11-04] MED LIST changes: -GABA600T2 PO; +GBPN600T PO
== END ==
LOC: WOUNDCARE 14:56
PROVIDERS: ATTEND Surgery
DX: T23.221A Burn of second degree of single right finger (nail) except thumb, initial encounter (principal); E11.42 Type 2 diabetes mellitus with diabetic polyneuropathy
CPT/HCPCS: 99212

== ENCOUNTER 2019-08-18 15:11 | Inpatient (IN) | payer SELFPAY ==
[~2019-08-18] VITALS: Ht 165.1 cm; Wt 98.2 kg
--- NOTE | 2019-08-18 17:10 | NUR ---
TO ROOM 9
[2019-08-18 17:48] LABS: BASOPHILS % (AUTO) 0 % (0-10); EOSINOPHILS # (AUTO) 0.1 10^3/uL (0.0-0.3); EOSINOPHILS % (AUTO) 1 % (0-10); HEMATOCRIT 32 % (35-52); HEMOGLOBIN 10.5 G/DL (11.5-16.0); LYMPHOCYTES # (AUTO) 2.8 X 10^3 (1.0-4.0); LYMPHOCYTES % (AUTO) 28 % (12-44); MEAN CORPUSCULAR HEMOGLOBIN 29 PG (25-34); MEAN CORPUSCULAR HGB CONC 33 G/DL (32-36); MEAN CORPUSCULAR VOLUME 88 FL (80-99); MEAN PLATELET VOLUME 11.7 FL (7.4-10.4); MONOCYTES # (AUTO) 0.7 X 10^3 (0.0-1.0); MONOCYTES % (AUTO) 7 % (0-12); NEUTROPHILS # (AUTO) 6.3 X 10^3 (1.8-7.8); NEUTROPHILS % (AUTO) 63 % (42-75); PLATELET COUNT 224 10^3/uL (130-400); RED CELL DISTRIBUTION WIDTH 12.4 % (10.0-14.5); WHITE BLOOD COUNT 9.9 10^3/uL (4.3-11.0)
[2019-08-18 18:02] LABS: INR 0.9 (0.8-1.4); PROTHROMBIN TIME PATIENT 12.7 SEC (12.2-14.7)
[2019-08-18 18:09] LABS: ALBUMIN 3.8 GM/DL (3.2-4.5); BILIRUBIN,TOTAL 0.2 MG/DL (0.1-1.0); CALCIUM 9.4 MG/DL (8.5-10.1); CREATININE SERUM 1.2 MG/DL (0.60-1.30); POTASSIUM 4.5 MMOL/L (3.6-5.0); TOTAL PROTEIN 7.3 GM/DL (6.4-8.2)
--- NOTE | 2019-08-18 18:19 | Diagnostic Imaging Report ---
EXAMINATION: Chest 1 view HISTORY: Cough. FINDINGS: No comparison available. The lungs are clear. No edema. No pneumonia. No pleural effusion. No pneumothorax. Heart is normal in size. IMPRESSION: 1. Clear lungs. Dictated by: Dictated on workstation # [id number]
--- NOTE | 2019-08-18 18:23 | Diagnostic Imaging Report ---
EXAMINATION: Left foot, 3 views. HISTORY: Diabetic ulcer. COMPARISON: 08/18/2019. FINDINGS: There has been amputation of the distal phalanx of the left great toe and all phalanxes of the 2nd toe. There is marked soft tissue swelling about the forefoot. No erosions are seen to indicate active osteomyelitis. There is no fracture. IMPRESSION: Marked soft tissue swelling without erosions to indicate osteomyelitis. Dictated by: Dictated on workstation # [id number]
--- NOTE | 2019-08-18 18:58 | NUR ---
REPORT TO MELVA LO
--- NOTE | 2019-08-18 19:42 | ED Lower Extremity ---
General Chief Complaint: Lower Extremity Stated Complaint: ULCERS ON FOOT Nursing Triage Note: Pt ambulatory to ED with c/o wound to L foot. Pt reports noticing on Friday. Pt reports going to [facility] on Friday and being put on Bactrim. Pt reports worsening symptoms today with pain, odor and redness. Pt's foot is swollen and red. Nursing Sepsis Screen: No Definite Risk Source: patient Exam Limitations: no limitations History of Present Illness Date Seen by Provider: Aug 18, 2019 Time Seen by Provider: 19:38 Initial Comments Sent to ER from [facility] with reports of worsening infection to the left foot. She is a diabetic. She has a callus to the plantar surface lateral aspect left foot and some erythema to the dorsal aspect of the foot spreading proximally to the mid foot. She has been on oral antibiotics since Friday but denies improvement in fact notices worsening. Onset: just prior to arrival Severity: moderate Pain/Injury Location: left foot Method of Injury: unknown, fell Allergies and Home Medications Allergies Coded Allergies: clarithromycin (Verified Allergy, Unknown, 08/17/18) hydrocodone (Verified Allergy, Unknown, 08/17/18) Home Medications Acetaminophen 500 Mg Tablet, 500-1,000 MG PO Q6H PRN for PAIN-MILD, (Reported) Albuterol Sulfate 1 Puff Puff, 2 PUFF IH Q6H PRN for SHORTNESS OF BREATH, (Reported) 1 PUFF = 90 MCG Atorvastatin Calcium 20 Mg Tablet, 20 MG PO HS, (Reported) Gabapentin 600 Mg Tablet, 1,200 MG PO TID, (Reported) TAKES 2 (600MG) TABLETS Insulin Detemir 100 Unit/1 Ml Insuln.pen, 30 UNIT SQ BID, (Reported) Insulin Lispro 100 Unit/1 Ml Insuln.pen, 30 UNIT SQ TIDAC, (Reported) Linezolid 600 Mg Tablet, 600 MG PO Q12H Prescribed by: DANNY KHAN on 08/21/18 1403 Lisinopril 20 Mg Tablet, 20 MG PO HS, (Reported) Metoprolol Succinate 25 Mg Tab.er.24h, 25 MG PO HS, (Reported) Silver Sulfadiazine 20 Gm Cream..g., TP DAILY, (Reported) Patient Home Medication List Home Medication List Reviewed: Yes Review of Systems Constitutional: see HPI EENTM: see HPI Respiratory: no symptoms reported Cardiovascular: no symptoms reported Genitourinary: no symptoms reported Musculoskeletal: see HPI Skin: see HPI Psychiatric/Neurological: No Symptoms Reported Past Rydljux-Hweplc-Txyvuo Hx Patient Social History Alcohol Use: Denies Use Recreational Drug Use: No 2nd Hand Smoke Exposure: No Recent Foreign Travel: No Contact w/Someone Who Travel: No Recent Infectious Disease Expo: No Recent Hopitalizations: No Immunizations Up To Date Tetanus Booster (TDap): Unknown Seasonal Allergies Seasonal Allergies: Yes Past Medical History Surgeries: Yes Abdominal, Section, Eye Surgery Respiratory: No Cardiac: Yes Hypertension Neurological: Yes (PERIPHERAL NEUROPATHY) Neuropathy HELP DESK REP History: Menopausal Genitourinary: No Gastrointestinal: Yes Gastroesophageal Reflux Musculoskeletal: No Endocrine: Yes Diabetes, Insulin dep HEENT: Yes (RETINOPATHY) Macular Degeneration Cancer: No Psychosocial: Yes Anxiety Integumentary: Yes Recent Skin Changes Blood Disorders: No Physical Exam Vital Signs Vital Signs - First Documented 08/18/19 15:55 Temp 36.7 Pulse 95 Resp 14 B/P (MAP) 168/99 (122) Pulse Ox 98 O2 Delivery Room Air Capillary Refill : Less Than 3 Seconds Height, Weight, BMI Height: 5'5.00" Weight: 221lbs. 4.8oz. 100.419702wc; 35.00 BMI Method:Stated General Appearance: WD/WN, no apparent distress HEENT: PERRL/EOMI, normal ENT inspection Respiratory: no respiratory distress, no accessory muscle use Hips: bilateral hip non-tender, bilateral hip normal inspection, bilateral hip normal range of motion Legs: bilateral leg non-tender, bilateral leg normal inspection, bilateral leg normal range of motion Knees: bilateral knee non-tender, bilateral knee normal inspection, bilateral knee normal range of motion Ankles: bilateral ankle non-tender, bilateral ankle normal inspection, bilateral ankle normal range of motion Feet: left foot pain, left foot soft tissue tenderness, left foot swelling, left foot other (the plantar lateral surface of the left forefoot there is an ulcerated area draining purulent material. This has been cultured and sent to lab. To the dorsal aspect of the foot is swelling and erythema extend proximally to the mid foot.) Neurologic/Psychiatric: alert, normal mood/affect, oriented x 3 Skin: normal color, warm/dry Progress/Results/Core Measures Results/Orders Lab Results Laboratory Tests Test 08/18/19 17:25 08/18/19 17:39 Range/Units White Blood Count 9.9 4.3-11.0 10^3/uL Red Blood Count 3.62 L 4.35-5.85 10^6/uL Hemoglobin 10.5 L 11.5-16.0 G/DL Hematocrit 32 L 35-52 % Mean Corpuscular Volume 88 80-99 FL Mean Corpuscular Hemoglobin 29 25-34 PG Mean Corpuscular Hemoglobin Concent 33 32-36 G/DL Red Cell Distribution Width 12.4 10.0-14.5 % Platelet Count 224 130-400 10^3/uL Mean Platelet Volume 11.7 H 7.4-10.4 FL Neutrophils (%) (Auto) 63 42-75 % Lymphocytes (%) (Auto) 28 12-44 % Monocytes (%) (Auto) 7 0-12 % Eosinophils (%) (Auto) 1 0-10 % Basophils (%) (Auto) 0 0-10 % Neutrophils # (Auto) 6.3 1.8-7.8 X 10^3 Lymphocytes # (Auto) 2.8 1.0-4.0 X 10^3 Monocytes # (Auto) 0.7 0.0-1.0 X 10^3 Eosinophils # (Auto) 0.1 0.0-0.3 10^3/uL Basophils # (Auto) 0.0 0.0-0.1 10^3/uL Prothrombin Time 12.7 12.2-14.7 SEC INR Comment 0.9 0.8-1.4 Activated Partial Thromboplast Time 29 24-35 SEC Sodium Level 139 135-145 MMOL/L Potassium Level 4.5 3.6-5.0 MMOL/L Chloride Level 101 98-107 MMOL/L Carbon Dioxide Level 25 21-32 MMOL/L Anion Gap 13 5-14 MMOL/L Blood Urea Nitrogen 31 H 7-18 MG/DL Creatinine 1.20 0.60-1.30 MG/DL Estimat Glomerular Filtration Rate 48 BUN/Creatinine Ratio 26 Glucose Level 154 H 70-105 MG/DL Calcium Level 9.4 8.5-10.1 MG/DL Corrected Calcium 9.6 8.5-10.1 MG/DL Total Bilirubin 0.2 0.1-1.0 MG/DL Aspartate Amino Transf (AST/SGOT) 11 5-34 U/L Alanine Aminotransferase (ALT/SGPT) 11 0-55 U/L Alkaline Phosphatase 36 L 40-136 U/L Total Protein 7.3 6.4-8.2 GM/DL Albumin 3.8 3.2-4.5 GM/DL Lactic Acid Level 0.72 0.50-2.00 MMOL/L Vital Signs/I&O 08/18/19 15:55 Temp 36.7 Pulse 95 Resp 14 B/P (MAP) 168/99 (122) Pulse Ox 98 O2 Delivery Room Air Blood Pressure Mean: 122 POS Departure Communication (Admissions) Time/Spoke to Admitting Phy: 19:[address] Khan, we will admit, consult surgery, cover with vancomycin and Zosyn, Lovenox and pain medication Time/Spoke to Consulting Phy: 19:46 Dr Méndez will consult Family Conversation Dr méndez will consult Impression Primary Impression: Cellulitis of left foot Additional Impressions: Diabetic foot ulcer failure outpatient antibiotics Disposition: ADMITTED INPATIENT Condition: Stable Admissions Decision to Admit Reason: Admit from ER (General) Decision to Admit/Date: Aug 18, 2019 Time/Decision to Admit Time: 19:41 Departure-Patient Inst. Referrals: ALVA BENTLEY MD (PCP/Family) Primary Care Physician AARON RAMIREZ APRN Aug 18, 2019 19:42 POS
[2019-08-18] MEDS ORDERED: PIPERACILLIN/TAZOBACTAM (BULK) 4.5 GM in NS (IVPB) 100 ML IV ONE (20:00)
[2019-08-18] MEDS ORDERED: PIPERACILLIN/TAZO 4.5 GM VIAL (ZOSYN) IV ONE (20:01)
[2019-08-18] MEDS ORDERED: NS (IVPB) 100 ML ONE (20:01)
--- NOTE | 2019-08-18 20:20 | NUR ---
FLOOR RN UNABLE TO TAKE REPORT.
[2019-08-18] MEDS ORDERED: cloNIDine 0.2 MG (CATAPRES) TAB ONE (20:39)
[2019-08-18] MEDS ORDERED: KETOROLAC 30 MG/ML VIAL ONE (20:43)
[2019-08-18] MEDS ORDERED: KETOROLAC 30 MG/ML VIAL IVP ONE (20:45)
[2019-08-18] MEDS ORDERED: cloNIDine 0.1 MG (CATAPRES) TAB PO ONE (20:45)
--- NOTE | 2019-08-18 21:15 | NUR ---
COLLINS COTA admitted to room 404-1, with an admitting diagnosis of LEFT LEG CELLULITIS AND DIABETIC ULCER ON LEFT FOOT, on 08/18/19 from ED via WHEELCHAIR, accompanied by STAFF. COLLINS COTA introduced to surroundings, call light, bed controls, phone, TV, temperature control, lights, meal times, smoking policy, visitor policy, side rail policy, bathrooms and showers. Patient Rights given to patient in the handbook. COLLINS COTA verbalizes understanding that [facility] is not responsible for the loss or damage to any personal effects or valuables that are kept in the patients posession during their hospitalization. COLLINS COTA verbalizes understanding of Interdisciplinary Patient Education. Patient and/or family were informed about the Rapid Response Team and its purpose.
[2019-08-18 21:22] VITALS: BP 114/58
[2019-08-18] MEDS: NS IV 1000 ML 1,000 ML IV SCH (21:30)
[2019-08-18] MEDS ORDERED: fentaNYL INJECTION 100 MCG/2 ML AMP IV PRN (21:45)
[2019-08-18] MEDS ORDERED: VANCOMYCIN 1500 MG/NS 500 ML IVPB IV ONE ×2 (22:00)
[2019-08-18] MEDS ORDERED: VANCOMYCIN 500 MG/VIAL IV ONE (22:18)
[2019-08-18] MEDS ORDERED: VANCOMYCIN 1000 MG/VIAL ONE (22:18)
[2019-08-18] MEDS ORDERED: NS IV 500 ML 500 ML ONE (22:19)
[2019-08-18 23:50] VITALS: BP 96/54
[2019-08-19] MEDS: NS IV 1000 ML 1,000 ML IV SCH ×2 (00:37→10:22)
[2019-08-19] MEDS ORDERED: PIPERACILLIN/TAZO 4.5 GM VIAL (ZOSYN) IV ONE (03:43)
[2019-08-19] MEDS ORDERED: NS (IVPB) 100 ML ONE (03:43)
[2019-08-19 04:00] VITALS: BP 103/56
[2019-08-19] MEDS: PIPERACILLIN/TAZO 4.5 GM/NS 100 ML IV SCH ×6 (04:14→18:02)
[2019-08-19 06:12] LABS: BILIRUBIN,TOTAL 0.3 MG/DL (0.1-1.0); CALCIUM 8.4 MG/DL (8.5-10.1); CREATININE SERUM 1.47 MG/DL (0.60-1.30); POTASSIUM 4.7 MMOL/L (3.6-5.0); TOTAL PROTEIN 5.7 GM/DL (6.4-8.2)
[2019-08-19] MEDS: inSUlin ASPART (NovoLOG) 1 UNIT/0.01 ML (CHARGE PER UNIT) SC SCH ×4 (06:14→22:05)
[2019-08-19 07:16] LABS: BASOPHILS % (AUTO) 0 % (0-10); EOSINOPHILS # (AUTO) 0.1 10^3/uL (0.0-0.3); EOSINOPHILS % (AUTO) 1 % (0-10); HEMATOCRIT 27 % (35-52); HEMOGLOBIN 8.6 G/DL (11.5-16.0); LYMPHOCYTES # (AUTO) 2.5 X 10^3 (1.0-4.0); LYMPHOCYTES % (AUTO) 36 % (12-44); MEAN CORPUSCULAR HEMOGLOBIN 29 PG (25-34); MEAN CORPUSCULAR HGB CONC 32 G/DL (32-36); MEAN CORPUSCULAR VOLUME 90 FL (80-99); MEAN PLATELET VOLUME 12.5 FL (7.4-10.4); MONOCYTES # (AUTO) 0.5 X 10^3 (0.0-1.0); MONOCYTES % (AUTO) 8 % (0-12); NEUTROPHILS # (AUTO) 3.7 X 10^3 (1.8-7.8); NEUTROPHILS % (AUTO) 55 % (42-75); PLATELET COUNT 158 10^3/uL (130-400); RED CELL DISTRIBUTION WIDTH 12.3 % (10.0-14.5); WHITE BLOOD COUNT 6.8 10^3/uL (4.3-11.0)
--- NOTE | 2019-08-19 08:03 | NUR ---
VANCOMYCIN DOSING SCR 1.47; CRCL ~ 53; VANC 1500 MG GIVEN OVERNIGHT - BASED ON PREVIOUS DOSING FROM 08/2018 VANC 15 MG/KG X 98 KG ~ 1500 MG Q12H CHECK TROUGH LEVEL 08/20 1100 HOLD DOSE AND CONTACT PHARMACY IF LEVEL IS GREATER THAN 20
[2019-08-19 08:30] VITALS: BP 110/56
[2019-08-19] MEDS ORDERED: VANCOMYCIN 1 GM/NS 250 ML IVPB IV SCH ×2 (09:00)
[2019-08-19] MEDS: amLODIPine 5 MG (NORVASC) TAB PO SCH (10:08)
[2019-08-19] MEDS: LACTULOSE SYRUP 10GM/15ML (ENULOSE) 30ML UDC PO SCH ×2 (10:08→22:07)
[2019-08-19] MEDS: SENNA W/DOCUSATE (SENOKOT S) TABLET PO SCH ×2 (10:08→22:05)
[2019-08-19] MEDS: fluCOnazole (DIFLUCAN) 100 MG TAB PO SCH (10:08)
--- NOTE | 2019-08-19 11:09 | History & Physical-Hospitalist ---
[facility] 08/19/19 1109: History of Present Illness HPI/Chief Complaint CC: Cellulitis, Ulceration left foot HPI: Pt reports that on Friday her daughter noticed the redness on her left foot and when she looked at the foot the pt saw she had an ulcer under a callous on her foot. She reports it was starting to ooze some fluid at that time. She states that it continued to get worse over the next couple days and started to smell on Friday. She reports having pain that moved up to her knee before coming into the hospital. She states that she had an ulcer in the exact same location 5 years ago that was taken care of by wound care. She reports that she has had a chronic yeast infection as well that she would like to have addressed if possible. She has poorly controlled diabetes that she reports having an average around 350 with high for her being around 600. Source: patient Date Seen 08/19/19 Time Seen by a Provider: 08:23 Attending Physician Yaa Khan David F MD Referring Physician Date of Admission Aug 18, 2019 at 19:45 Home Medications & Allergies Home Medications Reviewed patient Home Medication Reconciliation performed by pharmacy medication reconciliations pharmacy laboratory technician and/or nursing. Patients Allergies have been reviewed. Allergies Allergies Coded Allergies clarithromycin (Verified Allergy, Unknown, 08/17/18) hydrocodone (Verified Allergy, Unknown, 08/17/18) Past Mxuchmv-Mzpysy-Llsyvc Hx Patient Social History Alcohol Use: Denies Use Recreational Drug Use: No 2nd Hand Smoke Exposure: No Recent Foreign Travel: No Contact w/other who traveled: No Recent Hopitalizations: No Recent Infectious Disease Expo: No Immunizations Up To Date Tetanus Booster (TDap): Unknown Seasonal Allergies Seasonal Allergies: Yes Past Medical History Surgeries: Abdominal, Section, Eye Surgery, Orthopedic (Left second toe amputation) Cardiac: Hypertension Neurological: Neuropathy : No Menopausal Gastrointestinal: Gastroesophageal Reflux Endocrine: Diabetes, Insulin dep HEENT: Macular Degeneration Psychosocial: Anxiety Skin/Integumentary: Recent Skin Changes History of Blood Disorders: No Review of Systems Constitutional: No chills, No fever EENTM: blurred vision (Chronic); No double vision Respiratory: cough; No short of breath Cardiovascular: No chest pain, No palpitations Gastrointestinal: No abdominal pain; constipation; No diarrhea, No nausea, No vomiting Genitourinary: No dysuria, No pain; other (Yeast infection) Skin: change in color (Eryhtema left foot ), lesions (Ulcer left plantar foot) Psychiatric/Neurological: Anxiety, Headache, Numbness (Bialteral feet) Physical Exam Physical Exam Vital Signs Vital Signs - First Documented 08/18/19 15:55 Temp 36.7 Pulse 95 Resp 14 B/P (MAP) 168/99 (122) Pulse Ox 98 O2 Delivery Room Air Capillary Refill : Less Than 3 Seconds Height, Weight, BMI Height: 5'5.00" Weight: 221lbs. 4.8oz. 100.643830re; 36.02 BMI Method:Stated General Appearance: No Apparent Distress, WD/WN, Anxious, Obese Respiratory: Chest Non Tender, Lungs Clear, Normal Breath Sounds, No Accessory Muscle Use, No Respiratory Distress Cardiovascular: Regular Rate, Rhythm, No Gallop, No Murmur, Normal Peripheral Pulses Extremity: No Calf Tenderness, Pedal Edema, Other (Draining ulcer left plantar foot ) Neurologic/Psychiatric: Alert, Oriented x3, Sensory Deficit (Numbness bilateral feet) Skin: Warm/Dry, Erythema (Left foot ) Results Results/Procedures Labs Laboratory Tests 08/18/19 17:25 08/19/19 05:04 Patient resulted labs reviewed. Assessment/Plan Assessment and Plan Assessment: Cellulitis Diabetic foot ulcer Diabetes HTN Anxiety Constipation Yeast infection Plan: Consult surgery for wound care Manage diabetes with insulin Manage HTN Continue antibiotics for cellulitis Antifungal for yeast infection DVT prophylaxis Continue home medications for anxiety Start laxatives and stool softeners for constipation Clinical Quality Measures DVT/VTE Risk/Contraindication: Risk Factor Score Per Nursin RFS Level Per Nursing on Admit: 4+=Very High YAA KHAN DO 08/19/19 0448: History of Present Illness HPI/Chief Complaint Chief complaint: Left diabetic foot ulcer. HPI: This is a 48yoWF who was sent from [facility] due to worsening left foot ulcer, failed oral antibioticsin need of surgicaldebridement. Dr. Delarosa has been consulted. BP remains out of control, so will initiate Norvasc and Clonidine prn and she hasn't had a BM in awhile, so will initiate treatment along with treatment for a yeast infection on her skin. We will await Dr. Delarosa's plan. Source: patient Exam Limitations: no limitations Past Vtffxxi-Msinqv-Dyqvya Hx Past Med/Social Hx: Reviewed Nursing Past Med/Soc Hx, Reviewed and Corrections made Review of Systems Constitutional: see HPI Skin: change in color (Eryhtema left foot ), rash Physical Exam Physical Exam General Appearance: No Apparent Distress, WD/WN, Anxious, Chronically ill Respiratory: Lungs Clear Cardiovascular: Regular Rate, Rhythm Extremity: Other (left foot with erythema and ulceration plantar) Neurologic/Psychiatric: Alert, Oriented x3 Assessment/Plan Admission Diagnosis Assessment: Left DM foot ulcer DM OOC HTN OOC Plan: Home meds IV abx Dr Delarosa consultation Lovenox Admission Status: Inpatient Order (span 2 midnights) Reason for Inpatient Admission: DM ulcer Diagnosis/Problems Diagnosis/Problems (1) Cellulitis of left foot Status: Acute (2) Diabetic foot ulcer Qualifiers: Diabetic foot ulcer location: other Laterality: left Non-pressure ulcer stage: unspecified non-pressure ulcer stage (3) Uncontrolled diabetes mellitus Status: Chronic (4) Non-compliance Status: Acute (5) Peripheral neuropathy Status: Acute Supervisory-Addendum Brief Verification & Attestation Participated in pt care: history, MDM, physical Personally performed: exam, history, MDM, supervision of care Care discussed with: Medical Student Procedures: n/a Results interpretation: Verified all documentation Verification and Attestation of Medical Student E/M Service A medical student performed and documented this service in my presence. I reviewed and verified all information documented by the medical student and made modifications to such information, when appropriate. I personally performed the physical exam and medical decision making. Yaa Khan, Aug 19, 2019,16:58 [facility] Aug 19, 2019 11:09 YAA SMITH DO Aug 19, 2019 16:58 POS
[2019-08-19] MEDS ORDERED: ACETAMINOPHEN 325 MG TABLET PO PRN (11:30)
[2019-08-19] MEDS ORDERED: INSU100V37 SQ (11:43)
[2019-08-19] MEDS ORDERED: CITA40TA11 PO (11:43)
[2019-08-19] MEDS ORDERED: INSU100I14 SQ (11:43)
[2019-08-19] MEDS ORDERED: ELDE1CAP PO (11:43)
[2019-08-19] MEDS ORDERED: CHOL10007 PO (11:43)
[2019-08-19] MEDS ORDERED: ASCO-262 PO (11:43)
[2019-08-19] MEDS ORDERED: SULF1TAB35 PO (11:44)
--- NOTE | 2019-08-19 11:45 | NUR ---
SPOKE WITH THE PATIENT ABOUT HER MEDICATIONS. SHE LISTED WHAT SHE IS TAKING AND I VERIFIED WITH [facility]. [facility] FILLED: 08-16-19 BACTRIM DS BID #20 07-23-19 CITALOPRAM (THIS WAS NOT PICKED UP) 11-23-18 LEVEMIR 20 BID PALS: 08-12-19 HUMALOG JEANETTE REPOSITORY: 07-23-19 METOPROLOL ER 25MG 07-23-19 LIPITOR 20MG 07-23-19 NOVOLOG 20 AC (PATIENT HAD REPORTED 30 TID AC) 07-23-19 TRESIBA 80 HS (PATIENT HAD SAID LEVEMIR 30 BID) AJAY ROJAS MAYRA: 06-30-19 CELEXA 40MG #30 AJAY PAIGE: NOTHING SINCE 2007 WHEN I ASKED THE NURSE ABOUT GABAPENTIN SHE STATES THEY LAST GAVE THE PATIENT GABAPENTIN THROUGH THE REPOSITORY 11-04-18, THEY NO LONGER HAVE GABAPENTIN AVAILABLE IN THE REPOSITORY. SHE STATES THEY DO NOT HAVE RECORD OF SENDING A PRESCRIPTION TO ANY PHARMACY. [facility] DID NOT HAVE IT ON RECORD. THE PATIENT DID STATE SHE TAKES 1200MG TID HOWEVER SHE ADMITTED SHE WAS HAVING TROUBLE GETTING IT. I DID NOT INCLUDE IT ON THE MED REC AT THIS TIME. VENTOLIN WAS REPORTED BY THE PATIENT WELL ON THE LIST FROM MEDICAL RECORDS. I WAS UNABLE TO VERIFY A LAST FILL DATE OR WHEN THE PATIENT MAY HAVE RECEIVED IT FORM THE REPOSITORY OR SAMPLES BUT I LEFT IT ON THE MED REC PRN AT THIS TIME. OTC MEDS: VITAMIN D 2 HS VITAMIN C HS TYLENOL PRN ELDERBERRY HS
[2019-08-19 12:07] VITALS: BP 142/73
[2019-08-19] MEDS: ENOXAPARIN 40 MG/0.4 ML (LOVENOX) SYR SC SCH (12:14)
[2019-08-19] MEDS: VANCOMYCIN INJECTION 1,500 MG in NS IV 500 ML 500 ML IV SCH (13:24)
--- NOTE | 2019-08-19 13:30 | NUR ---
RD ASSESSMENT PMHx: HTN; GERD; uncontrolled DM PT INTERACTION: Pt was awake and pleasant during nutrition assessment. Pt states current appetite is good and has been for some time. Pt states following a regular diet at home though she tries to avoid CHOs. Pt states no issues with chewing/swallowing food at this time. Pt states frequent episodes of nausea. "I'm always nauseous." Note pt currently on zofran PRN. Pt states regularly dealing with constipation. Pt states unsure of last BM. Note no BM recorded, and pt currently on bowel regimen of senna, per chart review. Pt states no recent wt changes. Note unable to determine recent wt hx, per chart review. Pt states current DM management as poor. Pt states blood glucose levels averaging around 350. Pt states that started retaking insulin. Note pt has diabetic foot ulcer, per chart review. Upon visual exam, pt appears to be very well-nourished with no visible signs of muscle/fat wasting with a BMI of 36.0. ABNORMAL NUTRITION-RELATED LAB VALUES: BUN 34 (H); cr 1.47 (H); glu 234 (H); Ca 8.4 (L); alkphos 31 (L); Pro 5.7 (L); alb 3.0 (L) Est. kcal needs: 7688-5828 kcal (15-20 kcal/kg) Est. Pro needs: 118-137 g Pro (1.2-1.4 g Pro/kg) PES STATEMENT: Inadequate protein intake ([id number]) related to increased protein needs as evidenced by wounds (diabetic foot ulcer) INTERVENTION: Continue with current diet order CHO 60g/m 1snack diet. Add Ensure HP (vary) to meals BID. Provides 160 kcal and 16 g Pro per serving for perceived benefit to wound healing. Offered education on CHO counting and its relationship to blood glucose levels. Pt declined. MONITOR/EVALUATE: PO Intake; Supplement Tolerance; Plan of Care; Hydration Status; Weight Status; Lab Values Veronica Mariee, MS, RD, LD Ext. 133
[2019-08-19 15:43] VITALS: BP 157/86
--- NOTE | 2019-08-19 16:53 | CONSULTATION REPORT ---
DATE OF SERVICE: 08/19/2019 ATTENDING PRIMARY CARE PHYSICIAN: Dr. Catherine. ADMITTING PHYSICIAN: Yaa Saldaña DO HISTORY: The patient is a 48-year-old female with history of diabetes as well as noncompliance. She states that she was on an insulin as well as oral hypoglycemics; however, did discontinue them for some reason that she can well articulate. She developed a callus of the lateral aspect of the left foot along the fifth metatarsophalangeal joint and then noticed some swelling and then also noticed some redness. She does have a history of diabetic foot ulcerations as well as neuropathy and is status post left first distal toe amputation as well as what appears to be a transmetatarsal amputation of the second digit of the left foot. Upon examination, there is a callus with a crack and a small opening with subdermal tissue underneath; however, there is no abscess. PAST MEDICAL HISTORY: Diabetes, hypertension, neuropathy, GERD, macular degeneration, anxiety. PAST SURGERIES: Left great distal toe amputation, left second toe transmetatarsal amputation, section, ophthalmic surgery. ALLERGIES: CLARITHROMYCIN, HYDROCODONE. MEDICATIONS: Albuterol 1 puff q.6 hours p.r.n., atorvastatin 20 mg daily, cholecalciferol daily, citalopram 40 mg daily, NovoLog insulin 30 units before every meal and at bedtime, Tresiba insulin 30 units b.i.d., metoprolol 25 mg daily, Bactrim DS b.i.d. SOCIAL HISTORY: Negative smoke, negative alcohol. FAMILY HISTORY: Noncontributory. VITAL SIGNS: Temperature 36.0, blood pressure 157/86, pulse 88, respirations 20, pulse ox 94% on room air. REVIEW OF SYSTEMS: A well-nourished female, in no acute distress. She is not experiencing any shortness of breath or difficulty breathing. No chest pain, palpitations, diaphoresis. No nausea, vomiting. No diarrhea or constipation. No fever, chills. No recent inadvertent weight loss. All other review of systems negative. PHYSICAL EXAMINATION: CHEST: Good breath sounds bilaterally. HEART: Regular, no murmurs. EXTREMITIES: No lower extremity edema. Negative Homans sign. HEENT: No scleral icterus, no cervical lymphadenopathy. ABDOMEN: Soft, nontender, nondistended. SKIN: Along the left lateral foot along the plantar aspect along the fifth metatarsophalangeal joint is a hard callus, which cracked and there was superficial wound identified and she does state that there was purulent drainage initially; however, there is none now. There is also some surrounding redness and erythema along the dorsal aspect of the foot; however, this seems to be improving. There is no fluctuance to indicate any abscess. LABORATORY DATA: WBC is 6.8, hemoglobin 8.6, hematocrit 27, platelets 158. BUN 34, creatinine 1.47. ASSESSMENT AND PLAN: A 48-year-old female with uncontrolled diabetes, diabetic neuropathy as well as a history of diabetic foot ulceration with cellulitis of the left lateral foot as well as a small opening along the callus; however, there does not appear to be any abscess. This appears to be improving with IV antibiotics and we will continue to monitor for improvement. Her white count is normal and this appears to be more of a chronic infection. If swelling, redness or fluctuance develops, then we will proceed with an incision and drainage as well as possible debridement. Job ID: [id number] DocumentID: [id number] Dictated Date: 08/19/2019 16:30:07 [employer] Date: 08/19/2019 16:52:36 Dictated By: MTAT GOLDBERG MD
[2019-08-19] MEDS ORDERED: RT-ALBUTEROL SULF 2.5 MG/3 ML PRE-MIX VIAL IH PRN (17:00)
[2019-08-19] MEDS ORDERED: NON-FORMULARY MEDICATION 1 EA EA (Acetaminophen (Tylenol Extra Strength) 1,000 MG) PO PRN (17:00)
[2019-08-19] MEDS ORDERED: ACETAMINOPHEN 500 MG TAB (TYLENOL) PO PRN (17:15)
[2019-08-19] MEDS: ASCORBIC ACID (VIT C) 500 MG TABLET PO SCH (18:01)
[2019-08-19 19:00] VITALS: BP 185/77
[2019-08-19] MEDS ORDERED: INSULIN DEGLUDEC 30 UNIT SQ SCH (21:00)
[2019-08-19] MEDS ORDERED: NON-FORMULARY MEDICATION 1 EA EA (Cholecalciferol (Vitamin D3) (Vitamin D3) 2,000 UNIT) PO SCH (21:00)
[2019-08-19] MEDS ORDERED: NON-FORMULARY MEDICATION 1 EA EA (Elderberry Fruit and Flower (Black Elderberry 575 mg Cap PO SCH (21:00)
[2019-08-19] MEDS ORDERED: NON-FORMULARY MEDICATION 1 EA EA (Ascorbate Calcium (Vitamin C) 500 MG) PO SCH (21:00)
[2019-08-19] MEDS ORDERED: NON-FORMULARY MEDICATION 1 EA EA (Atorvastatin Calcium (Lipitor) 20 MG) PO SCH (21:00)
[2019-08-19] MEDS: cloNIDine 0.1 MG (CATAPRES) TAB PO PRN (22:05)
[2019-08-19] MEDS: VITAMIN D3 1,000 UNITS (CHOLECALCIFEROL) TABLET PO SCH (22:07)
[2019-08-20 00:10] VITALS: BP 177/81
[2019-08-20] MEDS: VANCOMYCIN INJECTION 1,500 MG in NS IV 500 ML 500 ML IV SCH (01:14)
[2019-08-20] MEDS: NS IV 1000 ML 1,000 ML IV SCH ×2 (01:18→16:32)
[2019-08-20] MEDS: ONDANSETRON 4 MG/2 ML (SDV) Z0FRAN IV PRN ×2 (01:18→11:16)
[2019-08-20] MEDS: PIPERACILLIN/TAZO 4.5 GM/NS 100 ML IV SCH ×6 (03:17→18:50)
[2019-08-20 04:05] VITALS: BP 125/75
[2019-08-20 05:44] LABS: BASOPHILS % (AUTO) 0 % (0-10); EOSINOPHILS # (AUTO) 0.1 10^3/uL (0.0-0.3); EOSINOPHILS % (AUTO) 1 % (0-10); HEMATOCRIT 28 % (35-52); HEMOGLOBIN 8.9 G/DL (11.5-16.0); LYMPHOCYTES # (AUTO) 1.8 X 10^3 (1.0-4.0); LYMPHOCYTES % (AUTO) 26 % (12-44); MEAN CORPUSCULAR HEMOGLOBIN 29 PG (25-34); MEAN CORPUSCULAR HGB CONC 32 G/DL (32-36); MEAN CORPUSCULAR VOLUME 91 FL (80-99); MEAN PLATELET VOLUME 12.4 FL (7.4-10.4); MONOCYTES # (AUTO) 0.4 X 10^3 (0.0-1.0); MONOCYTES % (AUTO) 6 % (0-12); NEUTROPHILS # (AUTO) 4.5 X 10^3 (1.8-7.8); NEUTROPHILS % (AUTO) 67 % (42-75); PLATELET COUNT 163 10^3/uL (130-400); WHITE BLOOD COUNT 6.8 10^3/uL (4.3-11.0)
[2019-08-20] MEDS ORDERED: NON-FORMULARY MEDICATION 1 EA EA (Insulin Aspart (Novolog Flexpen) 30 UNITS) SQ SCH (06:00)
[2019-08-20 06:15] LABS: ALBUMIN 3.1 GM/DL (3.2-4.5); BILIRUBIN,TOTAL 0.2 MG/DL (0.1-1.0); CALCIUM 8.5 MG/DL (8.5-10.1); CREATININE SERUM 1.16 MG/DL (0.60-1.30); POTASSIUM 4.9 MMOL/L (3.6-5.0); TOTAL PROTEIN 5.8 GM/DL (6.4-8.2)
[2019-08-20] MEDS: inSUlin ASPART (NovoLOG) 1 UNIT/0.01 ML (CHARGE PER UNIT) SC SCH ×7 (06:29→21:50)
[2019-08-20 07:50] VITALS: BP 146/76
[2019-08-20] MEDS ORDERED: NON-FORMULARY MEDICATION 1 EA EA (Citalopram Hydrobromide (Citalopram HBr) 40 MG) PO SCH (09:00)
--- NOTE | 2019-08-20 10:39 | NUR ---
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 Engaged in rapport building and introduced Spiritual Care services. No follow up needs reported to department.
[2019-08-20] MEDS ORDERED: TROUGH ORDER-PHARMACY XX NR (11:00)
[2019-08-20 11:01] VITALS: BP 177/82
[2019-08-20] MEDS: SENNA W/DOCUSATE (SENOKOT S) TABLET PO SCH ×2 (11:08→21:50)
[2019-08-20] MEDS: LACTULOSE SYRUP 10GM/15ML (ENULOSE) 30ML UDC PO SCH ×2 (11:08→21:50)
[2019-08-20] MEDS: amLODIPine 5 MG (NORVASC) TAB PO SCH (11:08)
[2019-08-20] MEDS: fluCOnazole (DIFLUCAN) 100 MG TAB PO SCH (11:08)
[2019-08-20] MEDS: cloNIDine 0.1 MG (CATAPRES) TAB PO PRN ×2 (11:16→21:47)
--- NOTE | 2019-08-20 11:33 | Progress Note - Hospitalist ---
[facility] 08/20/19 1133: Subjective HPI/CC On Admission Date Seen by Provider: Aug 20, 2019 Time Seen by Provider: 08:06 Chief complaint: Left diabetic foot ulcer. HPI: This is a 48yoWF who was sent from [facility] due to worsening left foot ulcer, failed oral antibioticsin need of surgicaldebridement. Dr. Delarosa has been consulted. BP remains out of control, so will initiate Norvasc and Clonidine prn and she hasn't had a BM in awhile, so will initiate treatment along with treatment for a yeast infection on her skin. We will await Dr. Delarosa's plan. Subjective/Events-last exam * Pt reports having a headache she thinks is from migraines * She reports increased necropathic pain in her feet last night * Her left leg below the knee is still edematous and she was wondering when it should go down * She reports that her sugars were getting low last night and this morning at 97 * She has been starting to have increased bowel movements * She has had increased anxiety that resulted in nail biting to the point of bleeding fingers Review of Systems General: No Chills HEENT: Head Aches; No Visual Changes Pulmonary: No Dyspnea, No Cough Cardiovascular: No: Chest Pain, Palpitations Gastrointestinal: Nausea, Vomiting, Constipation; No: Abdominal Pain, Diarrhea Musculoskeletal: leg pain, foot pain Neurological: Numbness Focused Exam Lactate Level 08/18/19 17:39: Lactic Acid Level 0.72 Objective Exam Vital Signs Vital Signs Date Time Temp Pulse Resp B/P (MAP) Pulse Ox O2 Delivery O2 Flow Rate FiO2 08/20/19 11:01 79 177/82 (113) 08/20/19 07:50 36.3 18 98 Room Air Capillary Refill : Less Than 3 Seconds General Appearance: No Apparent Distress, WD/WN Respiratory: Chest Non Tender, Lungs Clear, Normal Breath Sounds, No Accessory Muscle Use, No Respiratory Distress Cardiovascular: Regular Rate, Rhythm, No Edema, No Gallop, No Murmur, Normal Pe ripheral Pulses Extremity: No Calf Tenderness, Pedal Edema (Left), Other (Ulcer left plantar surface) Neurologic/Psychiatric: Alert, Oriented x3, No Motor/Sensory Deficits, Normal Mood/Affect Skin: Normal Color, Warm/Dry Results/Procedures Lab Laboratory Tests 08/20/19 04:40 Patient resulted labs reviewed. Assessment/Plan Assessment and Plan Assess & Plan/Chief Complaint Assessment: Cellulitis Diabetic foot ulcer Diabetes HTN Anxiety Constipation Yeast infection Plan: Consult surgery for wound care Manage diabetes with insulin Manage HTN Continue antibiotics for cellulitis Antifungal for yeast infection DVT prophylaxis Continue home medications for anxiety Start laxatives and stool softeners for constipation Clinical Quality Measures DVT/VTE Risk/Contraindication: Risk Factor Score Per Nursin RFS Level Per Nursing on Admit: 4+=Very High YAA KHAN DO 08/20/19 1659: Subjective Subjective/Events-last exam Pt doing pretty well. Bowels are moving very slowly so will give a soap suds enema. Dressing on the left foot will be maintained because she is dragging it on the floor. Wound care will be consulted since Dr. Delarosa does not feel like it needs to be debrided. Review of Systems Musculoskeletal: foot pain Objective Exam General Appearance: No Apparent Distress, WD/WN, Chronically ill Respiratory: Lungs Clear, Normal Breath Sounds Cardiovascular: Regular Rate, Rhythm Extremity: Other (improved foot cellulitis and less drainage wound) Assessment/Plan Assessment and Plan Assess & Plan/Chief Complaint IV abx Wound care consult Diagnosis/Problems Diagnosis/Problems (1) Cellulitis of left foot Status: Acute (2) Diabetic foot ulcer Qualifiers: (3) Gangrene of toe of left foot Status: Acute (4) Skin ulcer of right great toe Status: Chronic (5) Uncontrolled diabetes mellitus Status: Chronic (6) Renal insufficiency Supervisory-Addendum Brief Verification & Attestation Participated in pt care: history, MDM, physical Personally performed: exam, history, MDM, supervision of care Care discussed with: Medical Student Procedures: n/a Results interpretation: Verified all documentation Verification and Attestation of Medical Student E/M Service A medical student performed and documented this service in my presence. I reviewed and verified all information documented by the medical student and made modifications to such information, when appropriate. I personally performed the physical exam and medical decision making. Yaa Khan, Aug 20, 2019,16:58 [facility] Aug 20, 2019 11:33 YAA SMITH DO Aug 20, 2019 16:59 POS
[2019-08-20] MEDS: ENOXAPARIN 40 MG/0.4 ML (LOVENOX) SYR SC SCH (15:00)
--- NOTE | 2019-08-20 15:03 | Progress Note ---
Subjective Date Seen by a Provider: Aug 20, 2019 Time Seen by a Provider: 14:00 Subjective/Events-last exam doing ok, resting comfortably. no new area redness/erythema, no fluctuance. no fever/chills. Focused Exam Lactate Level 08/18/19 17:39: Lactic Acid Level 0.72 Objective Exam Vital Signs Date Time Temp Pulse Resp B/P (MAP) Pulse Ox O2 Delivery O2 Flow Rate FiO2 08/20/19 11:01 79 177/82 (113) 08/20/19 08:00 99 Room Air 08/20/19 07:50 36.3 78 18 146/76 (99) 98 Room Air 08/20/19 04:05 37.1 79 18 125/75 (92) 97 Room Air 08/20/19 00:10 36.2 83 18 177/81 (113) 96 Room Air 08/19/19 20:00 99 Room Air 08/19/19 19:00 36.2 85 20 185/77 (113) 98 Room Air 08/19/19 15:43 36.0 88 20 157/86 (109) 94 Room Air I & O 08/20/19 07:00 Intake Total 1454 ml Output Total 2000 ml Balance -546 ml Capillary Refill : Less Than 3 Seconds General Appearance: No Apparent Distress HEENT: PERRL/EOMI Neck: Full Range of Motion Respiratory: Chest Non Tender, Lungs Clear, Normal Breath Sounds Cardiovascular: Regular Rate, Rhythm Gastrointestinal: normal bowel sounds, non tender, soft Extremity: Normal Capillary Refill Neurologic/Psychiatric: Alert Skin: Normal Color Lymphatic: No Adenopathy Results Lab Laboratory Tests 08/19/19 15:44: Glucometer 146H 08/19/19 21:07: Glucometer 308H 08/20/19 04:40: White Blood Count 6.8, Red Blood Count 3.08L, Hemoglobin 8.9L, Hematocrit 28L, Mean Corpuscular Volume 91, Mean Corpuscular Hemoglobin 29, Mean Corpuscular Hemoglobin Concent 32, Red Cell Distribution Width 12.0, Platelet Count 163, Mean Platelet Volume 12.4H, Neutrophils (%) (Auto) 67, Lymphocytes (%) (Auto) 26, Monocytes (%) (Auto) 6, Eosinophils (%) (Auto) 1, Basophils (%) (Auto) 0, Neutrophils # (Auto) 4.5, Lymphocytes # (Auto) 1.8, Monocytes # (Auto) 0.4, Eosinophils # (Auto) 0.1, Basophils # (Auto) 0.0, Sodium Level 141, Potassium Level 4.9, Chloride Level 107, Carbon Dioxide Level 24, Anion Gap 10, Blood Urea Nitrogen 25H, Creatinine 1.16, Estimat Glomerular Filtration Rate 50, BUN/Creatinine Ratio 22, Glucose Level 99, Calcium Level 8.5, Corrected Calcium 9.2, Total Bilirubin 0.2, Aspartate Amino Transf (AST/SGOT) 11, Alanine Aminotransferase (ALT/SGPT) 12, Alkaline Phosphatase 30L, Total Protein 5.8L, Albumin 3.1L 08/20/19 06:26: Glucometer 97 08/20/19 11:03: Vancomycin Level Trough 31.2*H 08/20/19 11:07: Glucometer 87 Microbiology 08/18/19 Blood Culture - Preliminary, Resulted No growth 08/18/19 Gram Stain - Final, Resulted 08/18/19 Wound Culture - Preliminary, Resulted Culture In Progress Assessment/Plan Assessment/Plan Assess & Plan/Chief Complaint left lateral foot cellulitis with hx insulin dependent diabetes. no necrosis/absess. will recommend better medical compliance and custom orthotics to off load pressure. Clinical Quality Measures DVT/VTE Risk/Contraindication: Risk Factor Score Per Nursin RFS Level Per Nursing on Admit: 4+=Very High MATT GOLDBERG MD Aug 20, 2019 15:03 POS
[2019-08-20 16:17] VITALS: BP 154/79
[2019-08-20] MEDS: ASCORBIC ACID (VIT C) 500 MG TABLET PO SCH (17:14)
--- NOTE | 2019-08-20 18:04 | Wound Care Assessment ---
Wound Care Assessment Date Seen by Provider: Aug 20, 2019 Time Seen by Provider: 11:40 Chief Complaint L foot ulcer and infection. HPI The patient is a 48 year old female with infected L foot ulcer in a setting of diabetes. Recreational Drug Use: No Alcohol Use: Denies Use Exam Vital Signs Date Time Temp Pulse Resp B/P (MAP) Pulse Ox O2 Delivery O2 Flow Rate FiO2 08/20/19 16:17 36.3 81 20 154/79 (104) 100 Room Air Capillary Refill : Less Than 3 Seconds Results Laboratory Tests 08/19/19 21:07: Glucometer 308H 08/20/19 04:40: White Blood Count 6.8, Red Blood Count 3.08L, Hemoglobin 8.9L, Hematocrit 28L, Mean Corpuscular Volume 91, Mean Corpuscular Hemoglobin 29, Mean Corpuscular Hemoglobin Concent 32, Red Cell Distribution Width 12.0, Platelet Count 163, Mean Platelet Volume 12.4H, Neutrophils (%) (Auto) 67, Lymphocytes (%) (Auto) 26, Monocytes (%) (Auto) 6, Eosinophils (%) (Auto) 1, Basophils (%) (Auto) 0, Neutrophils # (Auto) 4.5, Lymphocytes # (Auto) 1.8, Monocytes # (Auto) 0.4, Eosinophils # (Auto) 0.1, Basophils # (Auto) 0.0, Sodium Level 141, Potassium Level 4.9, Chloride Level 107, Carbon Dioxide Level 24, Anion Gap 10, Blood Urea Nitrogen 25H, Creatinine 1.16, Estimat Glomerular Filtration Rate 50, BUN/Creatinine Ratio 22, Glucose Level 99, Calcium Level 8.5, Corrected Calcium 9.2, Total Bilirubin 0.2, Aspartate Amino Transf (AST/SGOT) 11, Alanine Aminotransferase (ALT/SGPT) 12, Alkaline Phosphatase 30L, Total Protein 5.8L, Albumin 3.1L 08/20/19 06:26: Glucometer 97 08/20/19 11:03: Vancomycin Level Trough 31.2*H 08/20/19 11:07: Glucometer 87 08/20/19 16:16: Glucometer 145H Microbiology 08/18/19 Blood Culture - Preliminary, Resulted No growth 08/18/19 Gram Stain - Final, Resulted 08/18/19 Wound Culture - Preliminary, Resulted Mixed Bacterial Lizz Staphylococcus aureus Microbiology 08/18/19 Blood Culture - Preliminary, Resulted No growth ADORE DIEGO MD Aug 20, 2019 18:04 POS
[2019-08-20 20:00] VITALS: BP 184/87
--- NOTE | 2019-08-20 21:11 | NUR ---
PATIENTS BLOOD GLUCOSE IS 106. CONTACTED DR LORENZANA REGARDING 30 UNITS SCHEDULED LEVEMIR. ORDER RECEIVED TO DECREASE LEVEMIR TO 10 UNITS TONIGHT. TORBV.
[2019-08-20] MEDS: VITAMIN D3 1,000 UNITS (CHOLECALCIFEROL) TABLET PO SCH (21:47)
[2019-08-20] MEDS: DAKIN'S 1/4 STRENGTH (0.125%) 473 ML BTL TOP SCH (21:48)
[2019-08-21] VITALS: BP 128/64
[2019-08-21] MEDS: NS IV 1000 ML 1,000 ML IV SCH (02:38)
[2019-08-21] MEDS: PIPERACILLIN/TAZO 4.5 GM/NS 100 ML IV SCH ×6 (02:38→17:08)
[2019-08-21 04:00] VITALS: BP 133/67
[2019-08-21] MEDS: inSUlin ASPART (NovoLOG) 1 UNIT/0.01 ML (CHARGE PER UNIT) SC SCH ×6 (06:20→21:12)
[2019-08-21 08:00] VITALS: BP 155/88
[2019-08-21] MEDS ORDERED: TROUGH ORDER-PHARMACY XX NR (09:00)
--- NOTE | 2019-08-21 09:09 | NUR ---
Pt refused Novolog 30 units that was scheduled for 0600. Pt also refused levemir 30 units scheduled for 0900. Blood glucose at 0530 was 148. Education provided to pt on insulin action times.
[2019-08-21] MEDS: SENNA W/DOCUSATE (SENOKOT S) TABLET PO SCH ×2 (09:12→21:11)
[2019-08-21] MEDS: fluCOnazole (DIFLUCAN) 100 MG TAB PO SCH (09:13)
[2019-08-21] MEDS: DAKIN'S 1/4 STRENGTH (0.125%) 473 ML BTL TOP SCH ×2 (09:13→21:12)
[2019-08-21] MEDS: LACTULOSE SYRUP 10GM/15ML (ENULOSE) 30ML UDC PO SCH ×2 (09:13→21:11)
[2019-08-21] MEDS: amLODIPine 5 MG (NORVASC) TAB PO SCH (09:13)
[2019-08-21] MEDS: VANCOMYCIN 1,750 MG/NS 500 ML IVPB IV SCH ×2 (11:30)
[2019-08-21] MEDS: ENOXAPARIN 40 MG/0.4 ML (LOVENOX) SYR SC SCH (11:30)
--- NOTE | 2019-08-21 11:34 | Progress Note - Hospitalist ---
Subjective HPI/CC On Admission Date Seen by Provider: Aug 21, 2019 Time Seen by Provider: 09:45 Chief complaint: Left diabetic foot ulcer. HPI: This is a 48yoWF who was sent from [facility] due to worsening left foot ulcer, failed oral antibioticsin need of surgicaldebridement. Dr. Delarosa has been consulted. BP remains out of control, so will initiate Norvasc and Clonidine prn and she hasn't had a BM in awhile, so will initiate treatment along with treatment for a yeast infection on her skin. We will await Dr. Delarosa's plan. Subjective/Events-last exam Patient complains of feeling cold and that the food is not good. She's not been eating well and her blood sugars been running in the 100s despite the fact that she decreased her Levemir and been holding her Humalog. Nursing staff notes that notes that her wound is looking better. Blood pressure is slightly elevated. Hemoglobin is 8.9 Review of Systems General: Chills Neurological: Weakness Focused Exam Lactate Level Objective Exam Vital Signs Vital Signs Date Time Temp Pulse Resp B/P (MAP) Pulse Ox O2 Delivery O2 Flow Rate FiO2 08/21/19 15:18 36.2 79 16 142/82 (102) 98 Room Air Capillary Refill : Less Than 3 Seconds General Appearance: No Apparent Distress, Chronically ill Neck: Non Tender, Supple Respiratory: Chest Non Tender, Lungs Clear, Normal Breath Sounds, No Accessory Muscle Use, No Respiratory Distress Cardiovascular: Regular Rate, Rhythm, No Gallop Gastrointestinal: Normal Bowel Sounds, Non Tender, Soft Rectal: Deferred Extremity: No Pedal Edema Neurologic/Psychiatric: Alert, Oriented x3, Depressed Affect Skin: Pallor Results/Procedures Lab Patient resulted labs reviewed. Imaging: Reviewed Imaging Report Assessment/Plan Assessment and Plan Assess & Plan/Chief Complaint Diabetic foot ulcer on Zosyn and wound careCellulitis Diabetes-on insulin with hypoglycemia secondary to poor oral intake will de crease Levemir to 10 twice a day and sliding scale insulin B HTN-labile Anxiety Constipation Yeast infection Depressed affect anemia Clinical Quality Measures DVT/VTE Risk/Contraindication: Risk Factor Score Per Nursin RFS Level Per Nursing on Admit: 4+=Very High CHANELLE LORENZANA MD Aug 21, 2019 11:34 POS
[2019-08-21 12:00] VITALS: BP 94/63
[2019-08-21 15:18] VITALS: BP 142/82
[2019-08-21] MEDS: GABAPENTIN 600 MG (NEURONTIN) TAB PO SCH ×2 (15:43→21:11)
[2019-08-21] MEDS: ASCORBIC ACID (VIT C) 500 MG TABLET PO SCH (17:08)
[2019-08-21 19:38] VITALS: BP 168/95
[2019-08-21] MEDS: VITAMIN D3 1,000 UNITS (CHOLECALCIFEROL) TABLET PO SCH (21:11)
[2019-08-22] VITALS: BP 136/81
[2019-08-22] MEDS: PIPERACILLIN/TAZO 4.5 GM/NS 100 ML IV SCH ×6 (02:19→17:24)
[2019-08-22 04:00] VITALS: BP 123/78
[2019-08-22 05:17] LABS: BASOPHILS % (AUTO) 0 % (0-10); EOSINOPHILS # (AUTO) 0.1 10^3/uL (0.0-0.3); EOSINOPHILS % (AUTO) 1 % (0-10); HEMATOCRIT 28 % (35-52); HEMOGLOBIN 8.8 G/DL (11.5-16.0); LYMPHOCYTES # (AUTO) 2.4 X 10^3 (1.0-4.0); LYMPHOCYTES % (AUTO) 38 % (12-44); MEAN CORPUSCULAR HEMOGLOBIN 29 PG (25-34); MEAN CORPUSCULAR HGB CONC 32 G/DL (32-36); MEAN CORPUSCULAR VOLUME 91 FL (80-99); MONOCYTES # (AUTO) 0.5 X 10^3 (0.0-1.0); MONOCYTES % (AUTO) 7 % (0-12); NEUTROPHILS # (AUTO) 3.4 X 10^3 (1.8-7.8); NEUTROPHILS % (AUTO) 54 % (42-75); PLATELET COUNT 187 10^3/uL (130-400); WHITE BLOOD COUNT 6.3 10^3/uL (4.3-11.0)
[2019-08-22 05:44] LABS: ALBUMIN 3.2 GM/DL (3.2-4.5); BILIRUBIN,TOTAL 0.3 MG/DL (0.1-1.0); CALCIUM 8.7 MG/DL (8.5-10.1); CREATININE SERUM 1.11 MG/DL (0.60-1.30); POTASSIUM 4.5 MMOL/L (3.6-5.0); TOTAL PROTEIN 6.4 GM/DL (6.4-8.2)
[2019-08-22] MEDS: inSUlin ASPART (NovoLOG) 1 UNIT/0.01 ML (CHARGE PER UNIT) SC SCH ×4 (07:34→21:06)
[2019-08-22 08:00] VITALS: BP 130/79
[2019-08-22] MEDS: GABAPENTIN 600 MG (NEURONTIN) TAB PO SCH ×3 (08:34→21:06)
[2019-08-22] MEDS: amLODIPine 5 MG (NORVASC) TAB PO SCH (08:34)
[2019-08-22] MEDS: SENNA W/DOCUSATE (SENOKOT S) TABLET PO SCH ×2 (08:35→21:06)
[2019-08-22] MEDS: fluCOnazole (DIFLUCAN) 100 MG TAB PO SCH (08:35)
[2019-08-22] MEDS: DAKIN'S 1/4 STRENGTH (0.125%) 473 ML BTL TOP SCH ×2 (08:36→21:07)
[2019-08-22] MEDS: LACTULOSE SYRUP 10GM/15ML (ENULOSE) 30ML UDC PO SCH ×2 (08:36→21:07)
[2019-08-22] MEDS: VANCOMYCIN 1,750 MG/NS 500 ML IVPB IV SCH ×2 (10:10)
[2019-08-22] MEDS: ENOXAPARIN 40 MG/0.4 ML (LOVENOX) SYR SC SCH (11:26)
[2019-08-22 12:00] VITALS: BP 163/94
[2019-08-22] MEDS ORDERED: IBUPROFEN 600 MG (MOTRIN) TAB PO PRN (12:45)
[2019-08-22] MEDS ORDERED: SUMAtriptan 50 MG (IMITREX) TAB PO PRN (12:45)
--- NOTE | 2019-08-22 13:27 | Progress Note - Hospitalist ---
Subjective HPI/CC On Admission Date Seen by Provider: Aug 22, 2019 Time Seen by Provider: 13:30 Chief complaint: Left diabetic foot ulcer. HPI: This is a 48yoWF who was sent from [facility] due to worsening left foot ulcer, failed oral antibioticsin need of surgicaldebridement. Dr. Delarosa has been consulted. BP remains out of control, so will initiate Norvasc and Clonidine prn and she hasn't had a BM in awhile, so will initiate treatment along with treatment for a yeast infection on her skin. We will await Dr. Delarosa's plan. Subjective/Events-last exam Patient complains primarily of migraine today. Blood pressures been more elevated. She was taken off of her lisinopril about 3 months ago secondary to a cough. Her iron studies are pending at this time. She would like an Imitrex. Review of Systems HEENT: Head Aches Objective Exam Vital Signs Vital Signs Date Time Temp Pulse Resp B/P (MAP) Pulse Ox O2 Delivery O2 Flow Rate FiO2 08/22/19 12:00 36.3 86 20 163/94 (117) 94 Room Air Capillary Refill : Less Than 3 Seconds General Appearance: Other (In some discomfort) HEENT: Normal ENT Inspection Neck: Full Range of Motion, Non Tender, Supple Respiratory: Lungs Clear, Normal Breath Sounds, No Accessory Muscle Use, No Respiratory Distress Cardiovascular: Regular Rate, Rhythm, No Gallop, No Murmur, Normal Peripheral Pulses Gastrointestinal: Normal Bowel Sounds, Soft Extremity: No Pedal Edema Results/Procedures Lab Laboratory Tests 08/22/19 04:30 Patient resulted labs reviewed. Imaging: Reviewed Imaging Report Assessment/Plan Assessment and Plan Assess & Plan/Chief Complaint Diabetic foot ulcer on Zosyn and wound care Diabetes-on insulin with hypoglycemia secondary to poor oral intake will decrease Levemir to 10 twice a day and sliding scale insulin B [id number] increase the Toprol to 50 twice a day to hopefully control her migraines as well as her blood pressure-could consider an ARB Anxiety Constipation Yeast infection Depressed affect anemia-iron studies pending Migraine we'll give her an Imitrex Clinical Quality Measures DVT/VTE Risk/Contraindication: Risk Factor Score Per Nursin RFS Level Per Nursing on Admit: 4+=Very High CHANELLE LORENZANA MD Aug 22, 2019 13:27 POS
[2019-08-22 15:37] VITALS: BP 144/71
[2019-08-22] MEDS: ASCORBIC ACID (VIT C) 500 MG TABLET PO SCH (16:40)
[2019-08-22 19:40] VITALS: BP 135/65
[2019-08-22] MEDS: VITAMIN D3 1,000 UNITS (CHOLECALCIFEROL) TABLET PO SCH (21:06)
[2019-08-23 00:20] VITALS: BP 137/81
[2019-08-23] MEDS: PIPERACILLIN/TAZO 4.5 GM/NS 100 ML IV SCH ×4 (02:49→10:24)
[2019-08-23 04:00] VITALS: BP 142/67
[2019-08-23] MEDS: inSUlin ASPART (NovoLOG) 1 UNIT/0.01 ML (CHARGE PER UNIT) SC SCH ×3 (07:39→16:55)
[2019-08-23 08:00] VITALS: BP 195/91
[2019-08-23] MEDS: fluCOnazole (DIFLUCAN) 100 MG TAB PO SCH (08:01)
[2019-08-23] MEDS: SENNA W/DOCUSATE (SENOKOT S) TABLET PO SCH (08:01)
[2019-08-23] MEDS: GABAPENTIN 600 MG (NEURONTIN) TAB PO SCH ×2 (08:01→13:06)
[2019-08-23] MEDS: amLODIPine 5 MG (NORVASC) TAB PO SCH (08:01)
[2019-08-23] MEDS: LACTULOSE SYRUP 10GM/15ML (ENULOSE) 30ML UDC PO SCH (08:08)
[2019-08-23] MEDS: DAKIN'S 1/4 STRENGTH (0.125%) 473 ML BTL TOP SCH (08:22)
--- NOTE | 2019-08-23 08:30 | Wound Care Assessment ---
Wound Care Assessment Date Seen by Provider: Aug 23, 2019 Time Seen by Provider: 08:20 Chief Complaint L foot ulcer and infection. HPI The patient is a 48 year old female with infected L foot ulcer in a setting of diabetes. 08/23/19 Interval Note: doing much better, wound is clean by report. Will see in follow-up in [facility]. Recreational Drug Use: No Alcohol Use: Denies Use Exam Vital Signs Date Time Temp Pulse Resp B/P (MAP) Pulse Ox O2 Delivery O2 Flow Rate FiO2 08/23/19 04:00 36.8 79 20 142/67 (92) 96 Room Air Capillary Refill : Less Than 3 Seconds Results Laboratory Tests 08/22/19 11:18: Glucometer 160H 08/22/19 15:37: Glucometer 211H 08/22/19 20:08: Glucometer 208H 08/23/19 06:12: Glucometer 209H Microbiology 08/18/19 Blood Culture - Preliminary, Resulted No growth 08/18/19 Gram Stain - Final, Resulted 08/18/19 Wound Culture - Preliminary, Resulted Mixed Bacterial Lizz Staphylococcus aureus ADORE DIEGO MD Aug 23, 2019 08:30 POS
[2019-08-23] MEDS: VANCOMYCIN 1,750 MG/NS 500 ML IVPB IV SCH ×2 (11:14)
[2019-08-23] MEDS: ENOXAPARIN 40 MG/0.4 ML (LOVENOX) SYR SC SCH (11:15)
[2019-08-23 12:00] VITALS: BP 180/79
[2019-08-23] MEDS: cloNIDine 0.1 MG (CATAPRES) TAB PO PRN (12:56)
[2019-08-23] MEDS ORDERED: HYDROCHLOROTHIAZIDE 25 MG (HCTZ) TAB PO NR (13:15)
[2019-08-23] MEDS ORDERED: amLODIPine 5 MG (NORVASC) TAB PO NR (13:15)
[2019-08-23 15:36] VITALS: BP 136/73
--- NOTE | 2019-08-23 16:42 | NUR ---
Pt worried she won't be able to obtain hypertension medication as is without funds.Contacted [facility] and they stated that if Dr. Castillo writes the scripts and pt is at their pharmacy before 7:00 PM that they can charge her medications.
[2019-08-23] MEDS ORDERED: SMTR50T PO (16:54)
[2019-08-23] MEDS ORDERED: AMLO5TAB9 PO (16:54)
[2019-08-23] MEDS ORDERED: METO-395 PO (16:54)
[2019-08-23] MEDS ORDERED: HYDR25TA4 PO (16:54)
[2019-08-23] MEDS ORDERED: GBPN600T PO (16:54)
[2019-08-23] MEDS ORDERED: CITA40TA11 PO (16:54)
[2019-08-23] MEDS: ASCORBIC ACID (VIT C) 500 MG TABLET PO SCH (16:55)
[2019-08-23] MEDS ORDERED: AMLO10TA7 PO (16:57)
[2019-08-23] MEDS ORDERED: AMOX-358 PO (16:58)
--- NOTE | 2019-08-23 17:00 | Discharge Instructions ---
Discharge [facility] Discharge Medications New, Converted or Re-Newed RX: Transmitted to Pharmacy New Medications: Amlodipine Besylate (Amlodipine Besylate) 10 Mg Tablet 10 MG PO DAILY, #30 TAB 0 Refills Amoxicillin/Potassium Clav (Augmentin 875-125 Tablet) 1 Each Tablet 1 EACH PO BID, #14 TAB 0 Refills Gabapentin (Gabapentin) 600 Mg Tablet 1200 MG PO TID, #180 TAB 0 Refills Hydrochlorothiazide (Hydrochlorothiazide) 25 Mg Tablet 25 MG PO DAILY, #30 TAB 0 Refills Sumatriptan Succinate (Imitrex) 50 Mg Tab 50 MG PO DAILY PRN for PAIN-SEVERE (7-10), #8 TAB 0 Refills Changed Medications: Metoprolol Succinate (Metoprolol Succinate) 100 Mg Tab.er.24h 100 MG PO DAILY, #30 TAB 0 Refills (Changed from: Metoprolol Succinate 25 Mg Tab.er.24h 25 Mg PO HS) Continued Medications: Acetaminophen (Tylenol Extra Strength) 500 Mg Tablet 500-1000 MG PO Q6H PRN for PAIN-MILD, TAB Albuterol Sulfate (Ventolin Hfa) 1 Puff Puff 2 PUFF IH Q6H PRN for SHORTNESS OF BREATH, INHALER 1 PUFF = 90 MCG Ascorbate Calcium (Vitamin C) 500 Mg Tablet 500 MG PO HS, TAB Atorvastatin Calcium (Lipitor) 20 Mg Tablet 20 MG PO HS, TAB Cholecalciferol (Vitamin D3) (Vitamin D3) 1,000 Unit Capsule 2000 UNIT PO HS, CAP Citalopram Hydrobromide (Citalopram HBr) 40 Mg Tablet 40 MG PO DAILY, #30 TAB 0 Refills (This prescription has been renewed) LAST FILLED #30 06-30-19 Elderberry Fruit and Flower (Black Elderberry 575 mg Cap) 1 Each Capsule 1 CAP PO HS, CAP Insulin Aspart (Novolog Flexpen) 300 Units/3 Ml Solution 30 UNITS SQ TIDAC, EA Insulin Degludec (Tresiba) 100 Unit/1 Ml Vial 30 UNIT SQ BID, VIAL Discontinued Medications: Sulfamethoxazole/Trimethoprim (Bactrim Ds Tablet) 1 Each Tablet 1 TAB PO BID for 10 Days, TAB 10 DAY SUPPLY FILLED 08-16-19 Patient Instructions Goal/Follow Up Appt: Follow up with Dr. Catherine on 08/27 at 11:40 am. Follow up with Dr. Mckeon as directed. Patient Instructions: Go to the [facility] pharmacy to pickle sorter your prescriptions. The clinic is checking on repository medications as well, if you cannot afford your prescriptions, please have the pharmacy call Family Medicine nurses for assistance. Return to The Hospital For: Fever, uncontrolled headache, chest pain Activity & Diet Discharge Diet: Low Sodium Diet, ADA Diet Activity as Tolerated: Yes Orders-Post D/C & Referrals Pneu Vac Indicated: Yes VINCE CEE MD Aug 23, 2019 17:00 POS
--- NOTE | 2019-08-23 20:27 | Discharge Summary ---
Discharge Summary Hospital Course Hospital Course Date of Admission: Aug 18, 2019 at 19:45 Admission Diagnosis : Family Physician/Provider: Dante Bentley MD Date of Discharge: 08/23/19 Discharge Diagnosis: Left foot cellulitis Uncontrolled hypertension Migraines Hospital Course: 48 yo female admitted with cellulitis and abscess related to left foot callus. I&D was done and wound care consulted and she was set up with outpatient follow up. She had uncontrolled hypertension which she reported occurred starting 4-5 m onths ago when lisinopril was d/c due to cough. She had her metoprolol increased from 25 mg per day to 100 mg per day and added amlodipine 10 mg daily and hydrochlorothiazide 25 mg daily. She also requested script for sumatriptan which she used in the past successfully for her migraines. She was discharged with Augmentin to complet her course of antibiotics. She was treated with fluconazole while inpatient for fungal skin infection. Labs and Pending Lab Test: Laboratory Tests 08/23/19 06:12: Glucometer 209H 08/23/19 11:05: Glucometer 191H 08/23/19 15:34: Glucometer 183H Microbiology 08/18/19 Blood Culture - Preliminary, Resulted No growth 08/18/19 Gram Stain - Final, Complete 08/18/19 Wound Culture - Final, Complete Mixed Bacterial Lizz Staphylococcus aureus Home Meds Active Augmentin 875-125 Tablet (Amoxicillin/Potassium Clav) 1 Each Tablet 1 Each PO BID Amlodipine Besylate 10 Mg Tablet 10 Mg PO DAILY Hydrochlorothiazide 25 Mg Tablet 25 Mg PO DAILY Imitrex (Sumatriptan Succinate) 50 Mg Tab 50 Mg PO DAILY PRN Gabapentin 600 Mg Tablet 1,200 Mg PO TID Citalopram HBr (Citalopram Hydrobromide) 40 Mg Tablet 40 Mg PO DAILY LAST FILLED #30 06-30-19 Metoprolol Succinate 100 Mg Tab.er.24h 100 Mg PO DAILY Reported Vitamin D3 (Cholecalciferol (Vitamin D3)) 1,000 Unit Capsule 2,000 Unit PO HS Vitamin C (Ascorbate Calcium) 500 Mg Tablet 500 Mg PO HS Black Elderberry 575 mg Cap (Elderberry Fruit and Flower) 1 Each Capsule 1 Cap PO HS Tresiba (Insulin Degludec) 100 Unit/1 Ml Vial 30 Unit SQ BID Novolog Flexpen (Insulin Aspart) 300 Units/3 Ml Solution 30 Units SQ TIDAC Ventolin Hfa (Albuterol Sulfate) 1 Puff Puff 2 Puff IH Q6H PRN 1 PUFF = 90 MCG Lipitor (Atorvastatin Calcium) 20 Mg Tablet 20 Mg PO HS Tylenol Extra Strength (Acetaminophen) 500 Mg Tablet 500-1,000 Mg PO Q6H PRN Assessment/Pt DC Instructions See d/c instructions Orders-Post D/C & Referrals Pneu Vac Indicated: Yes Discharge Physical Examination Allergies: Coded Allergies: clarithromycin (Verified Allergy, Unknown, 08/17/18) hydrocodone (Verified Allergy, Unknown, 08/17/18) General Appearance: No Apparent Distress, WD/WN HEENT: PERRL/EOMI, Pharynx Normal Respiratory: Lungs Clear, Normal Breath Sounds Cardiovascular: Regular Rate, Rhythm, No Murmur Gastrointestinal: Normal Bowel Sounds, Non Tender Extremity: No Pedal Edema Neurologic/Psychiatric: Alert, Normal Mood/Affect, remanufacturing technician II-XII Norm as Tested; No Abnormal Cerebellar Tests, No Motor Weakness Copy Copies To 1: DANTE BENTLEY MD Discharge Summary Date of Admission Aug 18, 2019 at 19:45 Date of Discharge Aug 23, 2019 at 17:45 Discharge Date: Aug 23, 2019 Admission Diagnosis Assessment: Left DM foot ulcer DM OOC HTN OOC Plan: Home meds IV abx Dr Delarosa consultation [facility] Discharge Diagnosis (1) Cellulitis of left foot Status: Acute (2) Diabetic foot ulcer Qualifiers: (3) Gangrene of toe of left foot Status: Acute (4) Skin ulcer of right great toe Status: Chronic (5) Uncontrolled diabetes mellitus Status: Chronic (6) Renal insufficiency Clinical Quality Measures DVT/VTE Risk/Contraindication: Risk Factor Score Per Nursin RFS Level Per Nursing on Admit: 4+=Very High VINCE CEE MD Aug 23, 2019 20:26 POS
[2019-08-24] MEDS ORDERED: HYDROCHLOROTHIAZIDE 25 MG (HCTZ) TAB PO SCH (09:00)
[2019-08-24] MEDS ORDERED: amLODIPine 5 MG (NORVASC) TAB PO SCH (09:00)
== END 2019-08-23 17:45 | disposition home or self-care (01) | DRG 638 ==
LOC: EDUNIT# 15:11 → ER 15:12 → 4TH 19:45
PROVIDERS: ADMIT Internal Medicine; ATTEND Family Medicine
DX: E11.621 Type 2 diabetes mellitus with foot ulcer (principal); I96 Gangrene, not elsewhere classified; E11.52 Type 2 diabetes mellitus with diabetic peripheral angiopathy with gangrene; L03.116 Cellulitis of left lower limb; E11.628 Type 2 diabetes mellitus with other skin complications; L97.529 Non-pressure chronic ulcer of other part of left foot with unspecified severity; I10 Essential (primary) hypertension; K21.9 Gastro-esophageal reflux disease without esophagitis; N28.9 Disorder of kidney and ureter, unspecified; F41.9 Anxiety disorder, unspecified; E66.9 Obesity, unspecified; K59.00 Constipation, unspecified; B37.2 Candidiasis of skin and nail; E11.65 Type 2 diabetes mellitus with hyperglycemia; E11.649 Type 2 diabetes mellitus with hypoglycemia without coma; D64.9 Anemia, unspecified; F32.9 Major depressive disorder, single episode, unspecified; Z79.4 Long term (current) use of insulin; Z89.422 Acquired absence of other left toe(s); Z68.38 Body mass index [BMI] 38.0-38.9, adult; Z91.19 Patient's noncompliance with other medical treatment and regimen; G43.909 Migraine, unspecified, not intractable, without status migrainosus; E11.42 Type 2 diabetes mellitus with diabetic polyneuropathy
CPT/HCPCS: 36415; 71045; 73630; 80053; 80202; 82728; 82962; 83540; 83605; 85025; 85610; 85730; 87040; 87070; 87077; 87186; 87205; 94760

== ENCOUNTER → 2019-08-27 | Outpatient (CLI) | payer SELFPAY ==
[~2019-08-27] MED LIST changes: +AMLO10TA7 PO; +AMLO5TAB9 PO; +AMOX-358 PO; +ASCO-262 PO; +CHOL10007 PO; +CITA40TA11 PO; +ELDE1CAP PO; +HYDR25TA4 PO; +INSU100I14 SQ; +INSU100V37 SQ; +METO-395 PO; +SMTR50T PO; +SULF1TAB35 PO
== END ==
LOC: WOUNDCARE 08:38
PROVIDERS: ATTEND Surgery
DX: E11.621 Type 2 diabetes mellitus with foot ulcer (principal); E11.42 Type 2 diabetes mellitus with diabetic polyneuropathy; E11.65 Type 2 diabetes mellitus with hyperglycemia; L97.522 Non-pressure chronic ulcer of other part of left foot with fat layer exposed
CPT/HCPCS: 11042

== ENCOUNTER 2019-09-09 17:08 | Inpatient (IN) | payer OTHER ==
[~2019-09-09] VITALS: Ht 165.1 cm; Wt 109.0 kg
[2019-09-09] MEDS ORDERED: LACTATED RINGERS 1,000 ML IV ONE (17:29)
[2019-09-09] MEDS ORDERED: fentaNYL INJECTION 100 MCG/2 ML AMP IVP STA (17:34)
[2019-09-09] MEDS ORDERED: KETOROLAC 30 MG/ML VIAL IVP STA (17:34)
--- NOTE | 2019-09-09 17:41 | ED General ---
General Chief Complaint: Skin/Wound Problems Stated Complaint: SWELLING OF LEFT FOOT Nursing Triage Note: Pt ambulatory to ED with c/o chronic L foot wound. Pt reports increased pain since 0400 today. Pt reports being hospitalized for same wound recently and did not finish prescribed antibiotics or follow up with wound care. Pt reports limited resources. Nursing Sepsis Screen: No Definite Risk Source of Information: Patient Exam Limitations: No Limitations (LOR GARNER MD) History of Present Illness Date Seen by Provider: Sep 09, 2019 Time Seen by Provider: 17:21 Initial Comments Here with report of worsening left foot diabetic ulcer that is now with foul smell. She was hospitalized here from the through the for the same. She was discharged on Augmentin and a new blood pressure medicine (amlodipine) but she was never able to pick those up so didn't continue. She also was unable to go to wound care. She states both of those weren't done due to transportation issues as she does not have a car or a way to get here. She has not tried to do follow-up otherwise because she states that she cannot get to the clinic. She states that she did not know that they had transportation help. She reports that her blood sugars have been uncontrolled in the range of 350. Complains of pain from her toes to above the midcalf. Has chronic cough after taking lisinopril and has been off that for over 6 months. Timing/Duration: 12 Hours, Getting Worse Severity: Moderate Modifying Factors: worse with Movement Associated Systoms: No Chest Pain; Cough; No Fever/Chills, No Nausea/Vomiting, No Shortness of Air, No Weakness (LOR GARNER MD) Allergies and Home Medications Allergies Coded Allergies: clarithromycin (Verified Allergy, Unknown, 08/17/18) hydrocodone (Verified Allergy, Unknown, 08/17/18) Home Medications Acetaminophen 500 Mg Tablet, 500-1,000 MG PO Q6H PRN for PAIN-MILD, (Reported) Albuterol Sulfate 1 Puff Puff, 2 PUFF IH Q6H PRN for SHORTNESS OF BREATH, (Reported) 1 PUFF = 90 MCG Amlodipine Besylate 10 Mg Tablet, 10 MG PO DAILY Prescribed by: VINCE CEE on 08/23/19 9415 Amoxicillin/Potassium Clav 1 Each Tablet, 1 EACH PO BID Prescribed by: VINCE CEE on 08/23/191657 Ascorbate Calcium 500 Mg Tablet, 500 MG PO HS, (Reported) Atorvastatin Calcium 20 Mg Tablet, 20 MG PO HS, (Reported) Cholecalciferol (Vitamin D3) 1,000 Unit Capsule, 2,000 UNIT PO HS, (Reported) Citalopram Hydrobromide 40 Mg Tablet, 40 MG PO DAILY LAST FILLED #30 06-30-19 Prescribed by: VINCE CEE on 08/23/191653 Elderberry Fruit and Flower 1 Each Capsule, 1 CAP PO HS, (Reported) Gabapentin 600 Mg Tablet, 1,200 MG PO TID Prescribed by: VINCE CEE on 08/23/191653 Hydrochlorothiazide 25 Mg Tablet, 25 MG PO DAILY Prescribed by: VINCE CEE on 08/23/191653 Insulin Aspart 300 Units/3 Ml Solution, 30 UNITS SQ TIDAC, (Reported) Insulin Degludec 100 Unit/1 Ml Vial, 30 UNIT SQ BID, (Reported) Metoprolol Succinate 100 Mg Tab.er.24h, 100 MG PO DAILY Prescribed by: VINCE CEE on 08/23/191653 Sumatriptan Succinate 50 Mg Tab, 50 MG PO DAILY PRN for PAIN-SEVERE (7-10) Prescribed by: VINCE CEE on 08/23/191653 Patient Home Medication List Home Medication List Reviewed: Yes (LOR GARNER MD) Review of Systems Review of Systems Constitutional: see HPI; No weakness EENTM: No nose congestion, No throat pain Respiratory: cough; No short of breath Cardiovascular: No chest pain Gastrointestinal: No abdominal pain, No nausea, No vomiting Genitourinary: no symptoms reported Musculoskeletal: No back pain; joint pain, muscle pain Skin: change in color, lesions; No rash Psychiatric/Neurological: No Symptoms Reported (LOR GARNER MD) All Other Systems Reviewed Negative Unless Noted: Yes (LOR GARNER MD) Past Qndmhjt-Kxtxli-Sfxjav Hx Past Med/Social Hx: Reviewed Nursing Past Med/Soc Hx (LOR GARNER MD) Patient Social History Alcohol Use: Denies Use Recreational Drug Use: No 2nd Hand Smoke Exposure: No Recent Foreign Travel: No Contact w/Someone Who Travel: No Recent Infectious Disease Expo: No Recent Hopitalizations: No (LOR GARNER MD) Immunizations Up To Date Tetanus Booster (TDap): Unknown (LOR GARNER MD) Seasonal Allergies Seasonal Allergies: Yes (LOR GARNER MD) Past Medical History Surgeries: Yes Abdominal, Section, Eye Surgery, Orthopedic Respiratory: No Cardiac: Yes Hypertension Neurological: Yes (PERIPHERAL NEUROPATHY) Neuropathy [employer] History: Menopausal Genitourinary: No Gastrointestinal: Yes Gastroesophageal Reflux Musculoskeletal: No Endocrine: Yes Diabetes, Insulin dep HEENT: Yes (RETINOPATHY) Macular Degeneration Cancer: No Psychosocial: Yes Anxiety Integumentary: Yes (L foot wound) Recent Skin Changes Blood Disorders: No (LOR GARNER MD) Family Medical History Reviewed Nursing Family Hx (LOR GARNER MD) No Pertinent Family Hx (LOR GARNER MD) Physical Exam-Suspected Sepsis Physical Exam Vital Signs Vital Signs - First Documented 09/09/19 17:15 Temp 37.0 Pulse 95 Resp 17 B/P (MAP) 198/108 (138) Pulse Ox 100 O2 Delivery Room Air (MEETA HARRISON MD) Vital Signs Capillary Refill : Less Than 3 Seconds (LOR GARNER MD) Blood Pressure Mean: 138 POS Height, Weight, BMI Height: 5'5.00" Weight: 221lbs. 4.8oz. 100.728892iq; 36.00 BMI Method:Stated General Appearance: WD/WN, Mild Distress HEENT: PERRL/EOMI, Pharynx Normal Neck: Non Tender, Supple Respiratory: Lungs Clear, Normal Breath Sounds Cardiovascular: No Murmur, Tachycardia Gastrointestinal: Non Tender, Soft Back: Normal Inspection, No CVA Tenderness, No Vertebral Tenderness Extremity: Normal Capillary Refill, Pelvis Stable, Other (tenderness to the left but both medial and lateral as well as dorsal that extends up to the mid calf.) Neurologic/Psychiatric: Alert, Oriented x3, No Motor/Sensory Deficits Skin: warm/dry, ulcerations (1 x 3 cm ulceration to the lateral aspect of the left foot at the base of the fifth metatarsal and labs from the dorsum down around laterally to underneath), other (. Noted) (LOR GARNER MD) Focused Exam Lactate Level 09/09/19 17:33: Lactic Acid Level 1.28 (MEETA HARRISON MD) Lactic Acid Level Laboratory Tests Test 09/09/19 17:33 Lactic Acid Level 1.28 MMOL/L (0.50-2.00) (MEETA HARRISON MD) Progress/Results/Core Measures Suspected Sepsis Recent Fever Within 48 Hours: No Infection Criteria Present: None New/Unexplained Altered Menta: No Sepsis Screen: No Definite Risk SIRS Temperature: Pulse: 95 Respiratory Rate: 17 Laboratory Tests 09/09/19 17:33: White Blood Count 6.9 09/10/19 04:25: White Blood Count 6.1 Blood Pressure 198 /108 Mean: 138 09/09/19 17:33: Lactic Acid Level 1.28 Laboratory Tests 09/09/19 17:33: Creatinine 1.68H, INR Comment 0.9, Platelet Count 250, Total Bilirubin 0.4 09/10/19 04:25: Creatinine 1.10, Platelet Count 192, Total Bilirubin 0.3 (LOR GARNER MD) Results/Orders Lab Results Laboratory Tests Test 09/09/19 17:33 09/09/19 18:28 Range/Units White Blood Count 6.9 4.3-11.0 10^3/uL Red Blood Count 3.90 L 4.35-5.85 10^6/uL Hemoglobin 11.5 11.5-16.0 G/DL Hematocrit 34 L 35-52 % Mean Corpuscular Volume 87 80-99 FL Mean Corpuscular Hemoglobin 30 25-34 PG Mean Corpuscular Hemoglobin Concent 34 32-36 G/DL Red Cell Distribution Width 12.3 10.0-14.5 % Platelet Count 250 130-400 10^3/uL Mean Platelet Volume 11.2 H 7.4-10.4 FL Neutrophils (%) (Auto) 56 42-75 % Lymphocytes (%) (Auto) 37 12-44 % Monocytes (%) (Auto) 7 0-12 % Eosinophils (%) (Auto) 1 0-10 % Basophils (%) (Auto) 0 0-10 % Neutrophils # (Auto) 3.8 1.8-7.8 X 10^3 Lymphocytes # (Auto) 2.5 1.0-4.0 X 10^3 Monocytes # (Auto) 0.5 0.0-1.0 X 10^3 Eosinophils # (Auto) 0.1 0.0-0.3 10^3/uL Basophils # (Auto) 0.0 0.0-0.1 10^3/uL Prothrombin Time 12.6 12.2-14.7 SEC INR Comment 0.9 0.8-1.4 Activated Partial Thromboplast Time 28 24-35 SEC Sodium Level 136 135-145 MMOL/L Potassium Level 4.4 3.6-5.0 MMOL/L Chloride Level 98 98-107 MMOL/L Carbon Dioxide Level 24 21-32 MMOL/L Anion Gap 14 5-14 MMOL/L Blood Urea Nitrogen 34 H 7-18 MG/DL Creatinine 1.68 H 0.60-1.30 MG/DL Estimat Glomerular Filtration Rate 32 BUN/Creatinine Ratio 20 Glucose Level 503 *H 70-105 MG/DL Lactic Acid Level 1.28 0.50-2.00 MMOL/L Calcium Level 9.3 8.5-10.1 MG/DL Corrected Calcium 9.3 8.5-10.1 MG/DL Total Bilirubin 0.4 0.1-1.0 MG/DL Aspartate Amino Transf (AST/SGOT) 9 5-34 U/L Alanine Aminotransferase (ALT/SGPT) 10 0-55 U/L Alkaline Phosphatase 42 40-136 U/L Total Protein 8.0 6.4-8.2 GM/DL Albumin 4.0 3.2-4.5 GM/DL Urine Color YELLOW Urine Clarity CLEAR Urine pH 6.0 5-9 Urine Specific Skillman 1.020 1.016-1.022 Urine Protein 2+ H NEGATIVE Urine Glucose (UA) 3+ H NEGATIVE Urine Ketones NEGATIVE NEGATIVE Urine Nitrite NEGATIVE NEGATIVE Urine Bilirubin NEGATIVE NEGATIVE Urine Urobilinogen 0.2 < = 1.0 MG/DL Urine Leukocyte Esterase TRACE NEGATIVE Urine RBC (Auto) TRACE-I NEGATIVE Urine RBC 0-2 /HPF Urine WBC 5-10 H /HPF Urine Squamous Epithelial Cells 5-10 /HPF Urine Crystals NONE /LPF Urine Bacteria TRACE /HPF Urine Casts NONE /LPF Urine Mucus NEGATIVE /LPF Urine Culture Indicated YES (MEETA HARRISON MD) My Orders Orders - MEETA HARRISON MD Insulin (Regular) Human (Humulin R (Per (09/09/19 18:45) Ed Iv/Invasive Line Start (09/09/19 18:34) Ns Iv 1000 Ml (Sodium Chloride 0.9%) (09/09/19 18:34) Cefazolin Injection (Ancef Injection) (09/09/19 19:15) Loratadine Tablet (Claritin Tablet) (09/09/19 19:30) (MEETA HARRISON MD) Medications Given in ED Current Medications Medications Dose Ordered Sig/Arlet Route Start Time Stop Time Status Last Admin Dose Admin Amlodipine Besylate 10 mg ONCE ONCE PO 09/09/19 17:45 09/09/19 17:46 DC 09/09/19 17:40 10 MG Cefazolin Sodium 1000 mg/Sterile Water 10 ml @ 200 mls/hr ONCE ONCE IV 09/09/19 19:15 09/09/19 19:17 DC 09/09/19 19:17 200 MLS/HR Insulin Human Regular 10 unit ONCE ONCE IV 09/09/19 18:45 09/09/19 18:46 DC 09/09/19 18:45 10 UNIT Lactated Ringer's 1,000 ml @ 0 mls/hr Q0M ONCE IV 09/09/19 17:29 09/09/19 17:31 DC 09/09/19 17:37 1,000 MLS/HR Sodium Chloride 1,000 ml @ 0 mls/hr Q0M ONCE IV 09/09/19 18:34 09/09/19 18:35 DC 09/09/19 18:45 1,000 MLS/HR (MEETA HARRISON MD) Vital Signs/I&O 09/09/19 17:15 Temp 37.0 Pulse 95 Resp 17 B/P (MAP) 198/108 (138) Pulse Ox 100 O2 Delivery Room Air (MEETA HARRISON MD) Vital Signs/I&O Capillary Refill : Less Than 3 Seconds (LOR GARNER MD) Blood Pressure Mean: 138 POS Progress Note : Progress Note Seen and evaluated. IV, labs, UA, chest x-ray, blood cultures and lactic acid ordered. LR 1 L bolus. The foot x-ray ordered. Fentanyl 50 g IV and Toradol 15 mg IV ordered for pain. Wound culture of ulcerative wound obtained. Monitor patient. (LOR GANRER MD) Progress Note : Time: 19:25 Progress Note Care of this patient was assumed from Dr. Garner at shift change. Septic workup was pursued. X-rays revealed no evidence of osteomyelitis. Pain was treated by Dr. Garner. A second liter of IV fluid was ordered as patient had significant hyperglycemia over 500. 10 units of insulin was ordered by IV route as well. Wound culture from prior visit was reviewed. Ancef was ordered based on patient's allergy profile and culture sensitivity. Wound is superficial and therefore was not cultured as it is likely to be highly contaminated and polymicrobial. Urinary tract infection was subtly suggested by urinalysis. I discussed case with Dr. Saldaña. I believe the patient should be admitted for IV hydration to treat her renal failure, control blood sugar, and social work services. Patient has multiple excuses for her noncompliance including lack of transportation, lack of funds, and inability to tolerate walking to the clinic for follow-up. Social work may be able to help her with these things. We will restart her on her home regimen of insulin which she admits she has not been compliant with. Dr. Delarosa was consulted for wound care at Dr. Saldaña's request. (MEETA HARRISON MD) Diagnostic Imaging Diagonstic Imaging: Xray Plain Films/CT/US/NM/MRI: chest Comments Chest x-ray viewed by me and report reviewed. See report below: NAME: COLLINS COTA [facility] REC#: [id number] PT STATUS: REG ER : 1970 PHYSICIAN: LOR GARNER MD ADMIT DATE: 09/09/19/ER Draft Date of Exam:09/09/19 CHEST 1 VIEW, AP/PA ONLY EXAMINATION: Chest radiograph, portable AP view. DATE: 09/09/2019 6:01 PM. INDICATION: 48-year-old female, cough. COMPARISON: August 18, 2019. FINDINGS: Heart size and mediastinal contours are unremarkable. There is no identified pneumothorax. There is no large pleural effusion. There is no identified focal airspace consolidation. IMPRESSION: No identified acute cardiopulmonary abnormality. Dictated on workstation # [id number] Dict: 09/09/19 1806 Trans: 09/09/19 1847 [facility] [id number] Interpreted by: YAIMA GARCIA MD Diagonstic Imaging: Xray Comments Left foot x-ray viewed by me and report reviewed. See report below: NAME: COLLINS COTA [facility] REC#: [id number] PT STATUS: REG ER : 1970 PHYSICIAN: LOR GARNER MD ADMIT DATE: 09/09/19/ER Draft Date of Exam:09/09/19 FOOT, LEFT, 3 VIEWS EXAMINATION: Left foot radiographs, 3 views. COMPARISON: August 18, 2019. HISTORY: 48-year-old female, diabetic ulcer at the level of the left fifth metatarsophalangeal joint. FINDINGS: There is postoperative absence of the distal aspect of the first distal phalanx as well as absence of the first distal phalanx. There is absence of the second digit phalanges. 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 There does appear to be soft tissue swelling laterally adjacent to the fifth metatarsophalangeal joint. There is no identified radiopaque foreign body. There is no cortical or aggressive bone destruction. There is no periosteal reaction. There is an abnormal lucency within the soft tissues at the level of the metatarsophalangeal joint likely correlating with old ulcer. There is minimal degenerative type enthesopathy at the Achilles tendon insertion. IMPRESSION: Soft tissue ulcer and soft tissue swelling adjacent to the fifth metatarsophalangeal joint without radiographic evidence of osteomyelitis. Dictated on workstation # [id number] Dict: 09/09/19 1804 Trans: 09/09/19 1847 [facility] [id number] Interpreted by: YAIMA GARCIA MD (MEETA HARRISON MD) Departure Communication (Admissions) Time/Spoke to Admitting Phy: 19:10 Dr. Saldaña Time/Spoke to Consulting Phy: 19:14 Dr. Delarosa (MEETA HARRISON MD) Impression Primary Impression: Acute renal failure Qualified Codes: N17.9 - Acute kidney failure, unspecified Additional Impressions: Diabetic foot ulcer Qualified Codes: E11.621 - Type 2 diabetes mellitus with foot ulcer; L97.421 - Non-pressure chronic ulcer of left heel and midfoot limited to breakdown of skin Hyperglycemia Noncompliance Urinary tract infection Qualified Codes: N39.0 - Urinary tract infection, site not specified Disposition: ADMITTED INPATIENT Condition: Improved Admissions Decision to Admit Reason: Admit from ER (General) Decision to Admit/Date: Sep 09, 2019 Time/Decision to Admit Time: 18:00 (MEETA HARRISON MD) Departure-Patient Inst. Referrals: ALVA BENTLEY MD (PCP/Family) Primary Care Physician LOR GARNER MD Sep 09, 2019 17:41 MEETA PALMA MD Sep 09, 2019 18:58 POS
[2019-09-09 17:45] LABS: BASOPHILS % (AUTO) 0 % (0-10); EOSINOPHILS # (AUTO) 0.1 10^3/uL (0.0-0.3); EOSINOPHILS % (AUTO) 1 % (0-10); HEMATOCRIT 34 % (35-52); HEMOGLOBIN 11.5 G/DL (11.5-16.0); LYMPHOCYTES # (AUTO) 2.5 X 10^3 (1.0-4.0); LYMPHOCYTES % (AUTO) 37 % (12-44); MEAN CORPUSCULAR HEMOGLOBIN 30 PG (25-34); MEAN CORPUSCULAR HGB CONC 34 G/DL (32-36); MEAN CORPUSCULAR VOLUME 87 FL (80-99); MEAN PLATELET VOLUME 11.2 FL (7.4-10.4); MONOCYTES # (AUTO) 0.5 X 10^3 (0.0-1.0); MONOCYTES % (AUTO) 7 % (0-12); NEUTROPHILS # (AUTO) 3.8 X 10^3 (1.8-7.8); NEUTROPHILS % (AUTO) 56 % (42-75); PLATELET COUNT 250 10^3/uL (130-400); RED CELL DISTRIBUTION WIDTH 12.3 % (10.0-14.5); WHITE BLOOD COUNT 6.9 10^3/uL (4.3-11.0)
[2019-09-09] MEDS ORDERED: amLODIPine 5 MG (NORVASC) TAB PO ONE (17:45)
[2019-09-09 18:05] LABS: BILIRUBIN,TOTAL 0.4 MG/DL (0.1-1.0); CALCIUM 9.3 MG/DL (8.5-10.1); CREATININE SERUM 1.68 MG/DL (0.60-1.30); POTASSIUM 4.4 MMOL/L (3.6-5.0)
[2019-09-09 18:14] LABS: INR 0.9 (0.8-1.4); PROTHROMBIN TIME PATIENT 12.6 SEC (12.2-14.7)
[2019-09-09] MEDS ORDERED: NS IV 1000 ML 1,000 ML IV ONE (18:34)
[2019-09-09 18:38] LABS: BILIRUBIN,URINE NEGATIVE (NEGATIVE); CLARITY,URINE CLEAR; COLOR,URINE YELLOW; GLUCOSE, URINE (UA) 3+ (NEGATIVE); KETONES,URINE NEGATIVE (NEGATIVE); LEUKOCYTE ESTERASE ,URINE TRACE (NEGATIVE); NITRITE,URINE NEGATIVE (NEGATIVE); PROTEIN,URINE 2+ (NEGATIVE)
[2019-09-09] MEDS ORDERED: inSUlin (REGULAR) HUMAN 1 UNIT/0.01 ML (CHARGE PER UNIT) IV ONE (18:45)
--- NOTE | 2019-09-09 18:47 | Diagnostic Imaging Report ---
EXAMINATION: Left foot radiographs, 3 views. COMPARISON: August 18, 2019. HISTORY: 48-year-old female, diabetic ulcer at the level of the left fifth metatarsophalangeal joint. FINDINGS: There is postoperative absence of the distal aspect of the first distal phalanx as well as absence of the first distal phalanx. There is absence of the second digit phalanges. 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 There does appear to be soft tissue swelling laterally adjacent to the fifth metatarsophalangeal joint. There is no identified radiopaque foreign body. There is no cortical or aggressive bone destruction. There is no periosteal reaction. There is an abnormal lucency within the soft tissues at the level of the metatarsophalangeal joint likely correlating with old ulcer. There is minimal degenerative type enthesopathy at the Achilles tendon insertion. IMPRESSION: Soft tissue ulcer and soft tissue swelling adjacent to the fifth metatarsophalangeal joint without radiographic evidence of osteomyelitis. Dictated by: Dictated on workstation # [id number]
--- NOTE | 2019-09-09 18:48 | Diagnostic Imaging Report ---
EXAMINATION: Chest radiograph, portable AP view. DATE: 09/09/2019 6:01 PM. INDICATION: 48-year-old female, cough. COMPARISON: August 18, 2019. FINDINGS: Heart size and mediastinal contours are unremarkable. There is no identified pneumothorax. There is no large pleural effusion. There is no identified focal airspace consolidation. IMPRESSION: No identified acute cardiopulmonary abnormality. Dictated by: Dictated on workstation # [id number]
[2019-09-09 18:55] LABS: RBC,URINE 0-2 /HPF
--- NOTE | 2019-09-09 18:55 | NUR ---
report given to Surjit to assume care
[2019-09-09 18:56] LABS: BACTERIA,URINE TRACE /HPF
[2019-09-09] MEDS ORDERED: ceFAZolin INJECTION 1,000 MG in WATER (STERILE) FOR INJECTION 10 ML IV ONE (19:15)
[2019-09-09] MEDS ORDERED: LORATADINE (CLARITIN) 10 MG TAB PO ONE (19:30)
--- NOTE | 2019-09-09 20:05 | NUR ---
COLLINS COTA admitted to room 418-1, with an admitting diagnosis of ARF, DIABETIC FOOT WOUND, HYPERGLYCEMIA, NONCOMPLIANCE, on 09/09/19 from [place] via WHEELCHAIR accompanied by STAFF.COLLINS COTA introduced to surroundings, call light, bed controls, phone, TV, temperature control, lights, meal times, smoking policy, visitor policy, side rail policy, bathrooms and showers. Patient Rights given to patient in the handbook. COLLINS COTA verbalizes understanding that [facility] is not responsible for the loss or damage to any personal effects or valuables that are kept in the patients posession during their hospitalization. Patient and/or family were informed about the Rapid Response Team and its purpose.
[2019-09-09 20:27] VITALS: BP 196/102
[2019-09-09] MEDS ORDERED: ONDANSETRON 4 MG (ZOFRAN) ORAL DISSOLVE TAB PO PRN (20:30)
[2019-09-09] MEDS ORDERED: MELATONIN 3 MG TABLET PO PRN (20:30)
[2019-09-09] MEDS ORDERED: CALCIUM CARBONATE 500 MG (TUMS) TAB.CHEW PO PRN (20:30)
[2019-09-09] MEDS ORDERED: DOCUSATE SODIUM 100 MG (COLACE) CAP PO PRN (20:30)
[2019-09-09] MEDS ORDERED: diphenhydrAMINE 25 MG TAB (BENADRYL) PO PRN (20:30)
[2019-09-09] MEDS ORDERED: LOPERAMIDE 2 MG (IMODIUM) TABLET PO PRN (20:30)
[2019-09-09] MEDS ORDERED: ALPRAZolam 0.25 MG (XANAX) TAB PO PRN (20:30)
[2019-09-09] MEDS ORDERED: fentaNYL INJECTION 100 MCG/2 ML AMP IVP PRN (20:30)
[2019-09-09] MEDS ORDERED: ONDANSETRON 4 MG/2 ML (SDV) Z0FRAN IVP PRN (20:30)
[2019-09-09] MEDS ORDERED: fentaNYL INJECTION 100 MCG/2 ML AMP INJ PRN (20:30)
--- NOTE | 2019-09-09 20:55 | NUR ---
PT BP 196/102, DR KHAN NOTIFIED AND ORDERED TO DECREASE FLUIDS TO 50CC/HR. CLONIDINE 0.1MG PO Q4 PRN SBP>160. HYDRALAZINE 25 MG PO Q4 PRN SBP>160
[2019-09-09] MEDS ORDERED: ceFAZolin 1,000 MG/SWFI 10 ML IV PUSH IV SCH ×2 (21:00)
--- NOTE | 2019-09-09 21:12 | CONSULTATION REPORT ---
DATE OF SERVICE: ADMITTING PHYSICIAN: Dr. Saldaña. HISTORY OF PRESENT ILLNESS: The patient is a 48-year-old female who is an insulin-dependent diabetic as well as a history of noncompliance. She has had a chronic left foot diabetic ulcer for some amount of time; however, presents to the Emergency Department with worsening pain, swelling and drainage. The lesion is located along the left plantar aspect overlying the base of the left fifth metatarsal, approximately 1 x 3 cm in size. This lesion appears to be chronic. There is no fluctuance to indicate any abscess. An x-ray was performed, which did show soft tissue swelling; however, no signs of osteomyelitis. Her admission glucose was 503. PAST MEDICAL HISTORY: Insulin-dependent diabetes, hypertension, hypercholesterolemia, peripheral neuropathy, anxiety, retinopathy, and gastroesophageal reflux disease. PAST SURGICAL HISTORY: section, eye surgery, and orthopedic procedure. ALLERGIES: HYDROCODONE, CLARITHROMYCIN. MEDICATIONS: Amlodipine, amoxicillin, atorvastatin, citalopram, gabapentin, hydrochlorothiazide, insulin, metoprolol, and sumatriptan. SOCIAL HISTORY: Negative smoke, negative alcohol. FAMILY HISTORY: Noncontributory. VITAL SIGNS: Temperature 37.0, blood pressure 198/108, pulse 95, respirations 17, pulse ox 100% on room air. REVIEW OF SYSTEMS: Well-nourished female, in no acute distress. She is not experiencing any shortness of breath or difficulty in breathing. No chest pain, palpitations, diaphoresis. No nausea, vomiting, no diarrhea or constipation. No fever, chills, no recent inadvertent weight loss. All other review of systems negative. PHYSICAL EXAMINATION: CHEST: Few scattered rales bilaterally. HEART: Regular, no murmurs. EXTREMITIES: +1/3 bilateral lower extremity edema, negative Homans sign. HEENT: No scleral icterus. NECK: No cervical lymphadenopathy. ABDOMEN: Soft, nontender, nondistended. SKIN: Along the left foot along the plantar aspect of the metacarpophalangeal joint is an open diabetic ulcer approximately 1 x 3 cm in size with some mild fibrino-exudative debris. There is also some surrounding edema as well as redness. There is no fluctuance to indicate any abscess. LABORATORY DATA: WBC 6.9, hemoglobin 11.5, hematocrit 34, and platelets 250. BUN 34, creatinine 1.68. ASSESSMENT AND PLAN: A 48-year-old female with history of diabetes with a chronic diabetic left foot ulcer with mild to moderate acute on chronic cellulitis. At this time, her blood sugars are significantly elevated. She will be admitted, placed on IV fluids and insulin sliding scale to get her blood sugars under control. We will proceed with further evaluation and monitoring to see if any abscess develops or any skin necrosis develops as well that would require debridement. Otherwise, she will need continued medical therapy with wound care as well as tight glycemic control and foot orthotics to offload pressure along the region of the left fifth metacarpophalangeal joint. Job ID: [id number] DocumentID: [id number] Dictated Date: 09/09/2019 20:24:55 Refrigeration Service Inspector Date: 09/09/2019 21:12:06 Dictated By: MATT GOLDBERG MD
[2019-09-09] MEDS ORDERED: hydrALAZINE (APRESOLINE) 25 MG TAB PO PRN (21:15)
[2019-09-09] MEDS ORDERED: cloNIDine 0.1 MG (CATAPRES) TAB PO PRN (21:15)
[2019-09-09] MEDS: SENNA W/DOCUSATE (SENOKOT S) TABLET PO SCH (21:48)
[2019-09-09] MEDS: inSUlin ASPART (NovoLOG) 1 UNIT/0.01 ML (CHARGE PER UNIT) SC SCH (21:49)
[2019-09-09] MEDS: ENOXAPARIN 40 MG/0.4 ML (LOVENOX) SYR SC SCH (21:49)
[2019-09-09] MEDS: POLYETHYLENE GLYCOL 17 GM (MIRALAX) PACK PO SCH (21:49)
[2019-09-09 23:50] VITALS: BP 136/74
--- NOTE | 2019-09-10 00:50 | NUR ---
PT REPORTS CHEST PAIN TO PCT. THIS NURSE ASSESSED PT, PT DESCRIBES CHEST PAIN "HEART THUMPING" IN HER CHEST. B/P 150/90, PULSE 94. NO OTHER SYMPTOMS REPORTED BY PT, OR OBSERVED BY THIS NURSE. DR KHAN NOTIFIED, NO NEW ORDERS.
[2019-09-10 03:50] VITALS: BP 158/88
[2019-09-10] MEDS: ACETAMINOPHEN 500 MG TAB (TYLENOL) PO PRN ×2 (04:00→23:35)
[2019-09-10 05:24] LABS: BASOPHILS % (AUTO) 0 % (0-10); EOSINOPHILS # (AUTO) 0.1 10^3/uL (0.0-0.3); EOSINOPHILS % (AUTO) 2 % (0-10); HEMATOCRIT 30 % (35-52); HEMOGLOBIN 9.8 G/DL (11.5-16.0); LYMPHOCYTES # (AUTO) 2.9 X 10^3 (1.0-4.0); LYMPHOCYTES % (AUTO) 48 % (12-44); MEAN CORPUSCULAR HEMOGLOBIN 29 PG (25-34); MEAN CORPUSCULAR HGB CONC 33 G/DL (32-36); MEAN CORPUSCULAR VOLUME 87 FL (80-99); MEAN PLATELET VOLUME 11.6 FL (7.4-10.4); MONOCYTES # (AUTO) 0.4 X 10^3 (0.0-1.0); MONOCYTES % (AUTO) 7 % (0-12); NEUTROPHILS # (AUTO) 2.6 X 10^3 (1.8-7.8); NEUTROPHILS % (AUTO) 43 % (42-75); PLATELET COUNT 192 10^3/uL (130-400); RED CELL DISTRIBUTION WIDTH 12.3 % (10.0-14.5); WHITE BLOOD COUNT 6.1 10^3/uL (4.3-11.0)
[2019-09-10 05:54] LABS: ALBUMIN 3.3 GM/DL (3.2-4.5); BILIRUBIN,TOTAL 0.3 MG/DL (0.1-1.0); CALCIUM 8.8 MG/DL (8.5-10.1); CREATININE SERUM 1.1 MG/DL (0.60-1.30); TOTAL PROTEIN 6.3 GM/DL (6.4-8.2)
[2019-09-10 08:06] VITALS: BP 137/69
[2019-09-10] MEDS: ceFAZolin 1,000 MG/SWFI 10 ML IV PUSH IV SCH ×4 (08:14→19:58)
[2019-09-10] MEDS: inSUlin ASPART (NovoLOG) 1 UNIT/0.01 ML (CHARGE PER UNIT) SC SCH ×3 (08:15→17:12)
[2019-09-10] MEDS: LORATADINE (CLARITIN) 10 MG TAB PO SCH (08:33)
[2019-09-10] MEDS: POLYETHYLENE GLYCOL 17 GM (MIRALAX) PACK PO SCH ×2 (08:33→21:21)
[2019-09-10] MEDS ORDERED: amLODIPine 10 MG (NORVASC) TAB PO SCH (09:00)
--- NOTE | 2019-09-10 11:11 | Progress Note ---
Subjective Date Seen by a Provider: Sep 10, 2019 Time Seen by a Provider: 10:30 Subjective/Events-last exam Patient seen with Dr. Delarosa. Patient reports doing well except for ROQUE. Did report an episode of nausea and vomiting this morning, but do ok now and not having N/V currently. Does report some discomfort of the left lateral foot but says that this has improved some. Focused Exam Lactate Level 09/09/19 17:33: Lactic Acid Level 1.28 Objective Exam Vital Signs Date Time Temp Pulse Resp B/P (MAP) Pulse Ox O2 Delivery O2 Flow Rate FiO2 09/10/19 08:06 36.3 87 20 137/69 (91) 97 Room Air 09/10/19 08:00 97 Room Air 09/10/19 03:50 36.3 89 18 158/88 (111) 97 Room Air 09/09/19 23:50 36.6 98 18 136/74 (94) 95 Room Air 09/09/19 20:27 36.3 94 20 196/102 (133) 98 Room Air 09/09/19 20:27 36.3 94 20 196/102 98 Room Air 09/09/19 20:18 37.0 94 17 186/99 (138) 100 Room Air 09/09/19 20:10 Room Air 09/09/19 19:18 37.0 95 17 198/108 100 09/09/19 17:15 37.0 95 17 198/108 (138) 100 Room Air I & O 09/10/19 07:00 Intake Total 1500 ml Output Total 150 ml Balance 1350 ml Capillary Refill : Less Than 3 SecondsLess Than 3 Seconds General Appearance: No Apparent Distress, WD/WN Neck: Full Range of Motion, Normal Inspection, Supple Respiratory: Normal Breath Sounds, No Accessory Muscle Use, No Respiratory Distress Cardiovascular: Regular Rate, Rhythm, No Murmur Gastrointestinal: normal bowel sounds, non tender, soft Extremity: Normal Capillary Refill, Normal Range of Motion, No Calf Tenderness Neurologic/Psychiatric: Alert, Oriented x3 Skin: Normal Color, Warm/Dry, Other (There is a wound of the left plantar aspect with fibrino-exudative debris. Erythema noted and some edema. Tender to palpation.) Results Lab Laboratory Tests 09/09/19 17:33: White Blood Count 6.9, Red Blood Count 3.90L, Hemoglobin 11.5, Hematocrit 34L, Mean Corpuscular Volume 87, Mean Corpuscular Hemoglobin 30, Mean Corpuscular Hemoglobin Concent 34, Red Cell Distribution Width 12.3, Platelet Count 250, Mean Platelet Volume 11.2H, Neutrophils (%) (Auto) 56, Lymphocytes (%) (Auto) 37, Monocytes (%) (Auto) 7, Eosinophils (%) (Auto) 1, Basophils (%) (Auto) 0, Ne utrophils # (Auto) 3.8, Lymphocytes # (Auto) 2.5, Monocytes # (Auto) 0.5, Eosinophils # (Auto) 0.1, Basophils # (Auto) 0.0, Prothrombin Time 12.6, INR Comment 0.9, Activated Partial Thromboplast Time 28, Sodium Level 136, Potassium Level 4.4, Chloride Level 98, Carbon Dioxide Level 24, Anion Gap 14, Blood Urea Nitrogen 34H, Creatinine 1.68H, Estimat Glomerular Filtration Rate 32, BUN/Creatinine Ratio 20, Glucose Level 503*H, Lactic Acid Level 1.28, Calcium Level 9.3, Corrected Calcium 9.3, Total Bilirubin 0.4, Aspartate Amino Transf (AST/SGOT) 9, Alanine Aminotransferase (ALT/SGPT) 10, Alkaline Phosphatase 42, Total Protein 8.0, Albumin 4.0 09/09/19 18:28: Urine Color YELLOW, Urine Clarity CLEAR, Urine pH 6.0, Urine Specific [place] 1.020, Urine Protein 2+H, Urine Glucose (UA) 3+H, Urine Ketones NEGATIVE, Urine Nitrite NEGATIVE, Urine Bilirubin NEGATIVE, Urine Urobilinogen 0.2, Urine Leukocyte Esterase TRACE, Urine RBC (Auto) TRACE-I, Urine RBC 0-2, Urine WBC 5- 10H, Urine Squamous Epithelial Cells 5-10, Urine Crystals NONE, Urine Bacteria TRACE, Urine Casts NONE, Urine Mucus NEGATIVE, Urine Culture Indicated YES 09/09/19 19:34: Glucometer 344H 09/09/19 20:41: Glucometer 378H 09/10/19 04:25: White Blood Count 6.1, Red Blood Count 3.40L, Hemoglobin 9.8L, Hematocrit 30L, Mean Corpuscular Volume 87, Mean Corpuscular Hemoglobin 29, Mean Corpuscular Hemoglobin Concent 33, Red Cell Distribution Width 12.3, Platelet Count 192, Mean Platelet Volume 11.6H, Neutrophils (%) (Auto) 43, Lymphocytes (%) (Auto) 48H, Monocytes (%) (Auto) 7, Eosinophils (%) (Auto) 2, Basophils (%) (Auto) 0, Neutrophils # (Auto) 2.6, Lymphocytes # (Auto) 2.9, Monocytes # (Auto) 0.4, Eosinophils # (Auto) 0.1, Basophils # (Auto) 0.0, Sodium Level 140, Potassium Level 4.0, Chloride Level 106, Carbon Dioxide Level 23, Anion Gap 11, Blood Urea Nitrogen 29H, Creatinine 1.10, Estimat Glomerular Filtration Rate 53, BUN/Creatinine Ratio 26, Glucose Level 119H, Calcium Level 8.8, Corrected Calcium 9.4, Total Bilirubin 0.3, Aspartate Amino Transf (AST/SGOT) 8, Alanine Aminotransferase (ALT/SGPT) 8, Alkaline Phosphatase 33L, Total Protein 6.3L, Albumin 3.3 09/10/19 09:28: Glucometer 144H Assessment/Plan Assessment/Plan Assess & Plan/Chief Complaint A 48-year-old female with history of diabetes with a chronic diabetic left foot ulcer with mild to moderate acute on chronic cellulitis. She has been noncompliant with medications at home. VSS WBC 6.1 Continue with medical management with IV fluids, pain, nausea meds, abx, as well as keeping BS under control. Foot orthotics to offload pressure along this region. Continue to monitor for any necrosis or abscess, and if develops then would require debridement. Clinical Quality Measures DVT/VTE Risk/Contraindication: Risk Factor Score Per Nursin RFS Level Per Nursing on Admit: 4+=Very High Contraindications-Mechi: Other *list below* Other: cellulitis of the legs RYAN PÉREZ [employer] Sep 10, 2019 11:11 POS
--- NOTE | 2019-09-10 11:17 | NUR ---
PER DR. KHAN HOLD NOVALOG IF BLOOD SUGAR IS 150 OR LESS
[2019-09-10] MEDS: SENNA W/DOCUSATE (SENOKOT S) TABLET PO SCH ×2 (11:30→21:20)
[2019-09-10 11:59] VITALS: BP 167/89
[2019-09-10] MEDS ORDERED: METOCLOPRAMIDE INJ 10 MG/2 ML (REGLAN) IVP PRN (12:00)
[2019-09-10] MEDS ORDERED: SUMAtriptan 50 MG (IMITREX) TAB PO PRN (12:00)
[2019-09-10] MEDS ORDERED: NON-FORMULARY MEDICATION 1 EA EA (Acetaminophen (Tylenol Extra Strength) 1,000 MG) PO PRN (12:00)
[2019-09-10] MEDS ORDERED: PROMETHAZINE INJ 25 MG/ML (PHENERGAN) AMP IVP PRN (12:00)
[2019-09-10] MEDS ORDERED: RT-ALBUTEROL SULF 2.5 MG/3 ML PRE-MIX VIAL IH PRN (12:00)
--- NOTE | 2019-09-10 12:01 | History & Physical-Hospitalist ---
History of Present Illness HPI/Chief Complaint CC: Left foot wound cellulitis with poor follow up for wound care HPI: This is a 48yoWF clinic patient of [facility] who is known to me from prior admit to [facility] room 404 on 08/19/19 due to left foot wound with cellulitis. Patient had not been able to get to wound care due to lack of transportation. Patient has had OOC DM levels due to not taking insulin per her report. Elevated BP has been present too as it was last admit. Patient was placed on Ancef for cellulitis based on recent wound culture I&D. Source: patient, old records Exam Limitations: no limitations Date Seen 09/10/19 Time Seen by a Provider: 10:30 Attending Physician Yaa Saldaña David F MD Referring Physician Date of Admission Sep 09, 2019 at 19:19 Home Medications & Allergies Home Medications Reviewed patient Home Medication Reconciliation performed by pharmacy medication reconciliations manufacturing quality technician and/or nursing. Patients Allergies have been reviewed. Allergies Allergies Coded Allergies clarithromycin (Verified Allergy, Unknown, 08/17/18) hydrocodone (Verified Allergy, Unknown, 08/17/18) Past Knnjoxl-Zjtnos-Mwzqsy Hx Past Med/Social Hx: Reviewed Nursing Past Med/Soc Hx, Reviewed and Corrections made Patient Social History Marrital Status: single Employed/Student: unemployed Alcohol Use: Denies Use Recreational Drug Use: No Smoking Status: Former Smoker 2nd Hand Smoke Exposure: No Recent Foreign Travel: No Contact w/other who traveled: No Recent Hopitalizations: No Recent Infectious Disease Expo: No Immunizations Up To Date Tetanus Booster (TDap): Unknown Seasonal Allergies Seasonal Allergies: Yes Past Medical History Surgeries: Abdominal, Section, Eye Surgery, Orthopedic Cardiac: Hypertension Neurological: Neuropathy Menopausal Gastrointestinal: Gastroesophageal Reflux Endocrine: Diabetes, Insulin dep HEENT: Macular Degeneration Psychosocial: Anxiety Skin/Integumentary: Recent Skin Changes History of Blood Disorders: No Family History Reviewed Nursing Family Hx No Pertinent Family Hx Review of Systems Constitutional: see HPI, malaise Musculoskeletal: other (left foot pain) Skin: see HPI Physical Exam Physical Exam Vital Signs Vital Signs - First Documented 09/09/19 17:15 Temp 37.0 Pulse 95 Resp 17 B/P (MAP) 198/108 (138) Pulse Ox 100 O2 Delivery Room Air Capillary Refill : Less Than 3 SecondsLess Than 3 Seconds Height, Weight, BMI Height: 5'5.00" Weight: 221lbs. 4.8oz. [id number]; 37.42 BMI Method:Stated General Appearance: No Apparent Distress, WD/WN, Chronically ill Eyes: Right Eye Normal Inspection, Right Eye PERRL HEENT: PERRL/EOMI, Normal ENT Inspection, Pharynx Normal, Moist Mucous Membranes Neck: Full Range of Motion, Normal Inspection, Non Tender Respiratory: Chest Non Tender, Lungs Clear, Normal Breath Sounds, No Accessory Muscle Use, No Respiratory Distress Cardiovascular: Regular Rate, Rhythm, No Edema, No Gallop, No JVD, No Murmur, Normal Peripheral Pulses Gastrointestinal: Normal Bowel Sounds, No Organomegaly, No Pulsatile Mass, Non Tender, Soft Back: Normal Inspection, No CVA Tenderness, No Vertebral Tenderness Extremity: Normal Capillary Refill, Normal Inspection, Normal Range of Motion, Non Tender, No Calf Tenderness, No Pedal Edema Neurologic/Psychiatric: Alert, Oriented x3, No Motor/Sensory Deficits, Normal Mood/Affect, box maker wood II-XII Norm as Tested Skin: Normal Color, Warm/Dry, Other (left foot ulceration with mild erythema and slight drainage and subtle odor) Lymphatic: No Adenopathy Results Results/Procedures Labs Laboratory Tests 09/09/19 17:33 09/10/19 04:25 Patient resulted labs reviewed. Assessment/Plan Admission Diagnosis Assessment: Recurrent cellulitis of left foot DM foot ulcer s/p I&D Dr Delarosa last admit 08/19/19 Non-compliance DM OOC HTN OOC Migraines Plan: Ancef Pain control Imitrex Insulin BP meds Admission Status: Inpatient Order (span 2 midnights) Reason for Inpatient Admission: Failed outpatient wound care Diagnosis/Problems Diagnosis/Problems (1) Diabetic foot ulcer Qualifiers: Diabetic foot ulcer location: midfoot Diabetes mellitus type: type 2 Laterality: left Non-pressure ulcer stage: limited to breakdown of skin Qualified Codes: E11.621 - Type 2 diabetes mellitus with foot ulcer; L97.421 - Non-pressure chronic ulcer of left heel and midfoot limited to breakdown of skin (2) Noncompliance Status: Acute (3) Renal insufficiency (4) Peripheral neuropathy Status: Acute Clinical Quality Measures DVT/VTE Risk/Contraindication: Risk Factor Score Per Nursin RFS Level Per Nursing on Admit: 4+=Very High Contraindications-Mechi: Other *list below* Other: cellulitis of the legs YAA SALDAÑA DO Sep 10, 2019 12:01 POS
[2019-09-10] MEDS: GABAPENTIN 600 MG (NEURONTIN) TAB PO SCH ×2 (12:43→21:20)
[2019-09-10] MEDS: ASCORBIC ACID (VIT C) 500 MG TABLET PO SCH ×2 (12:43→21:21)
--- NOTE | 2019-09-10 13:45 | NUR ---
SPOKE WITH THE PT WELL CALLING [facility] TO COMPLETE [facility] MED REC. WHEN THE PT WAS DISCHARGED LAST THESE WERE SENT TO [facility] TO BE [facility]ILLED HOWEVER THEY WERE NEVER PICKED UP: AMLODIPINE AUGMENTIN 875 GABAPENTIN HCTZ IMITREX PT WENT THRU HER MED TO THE BE[facility] HER ABILITY. OTC MEDS: VITAMIN D VITAMIN C TYLENOL ELDERBERRY
[2019-09-10 16:08] VITALS: BP 143/79
[2019-09-10] MEDS: NS IV 1000 ML 1,000 ML IV SCH ×3 (19:34→21:21)
[2019-09-10 20:26] VITALS: BP 137/83
[2019-09-10] MEDS: VITAMIN D3 1,000 UNITS (CHOLECALCIFEROL) TABLET PO SCH (21:20)
[2019-09-10] MEDS: ENOXAPARIN 40 MG/0.4 ML (LOVENOX) SYR SC SCH (21:20)
[2019-09-11 00:04] VITALS: BP 160/90
[2019-09-11 04:00] VITALS: BP 126/69
[2019-09-11] MEDS: ceFAZolin 1,000 MG/SWFI 10 ML IV PUSH IV SCH ×2 (06:49)
[2019-09-11] MEDS: inSUlin ASPART (NovoLOG) 1 UNIT/0.01 ML (CHARGE PER UNIT) SC SCH ×3 (06:49→16:59)
[2019-09-11] MEDS: SENNA W/DOCUSATE (SENOKOT S) TABLET PO SCH ×2 (07:55→20:31)
[2019-09-11] MEDS: GABAPENTIN 600 MG (NEURONTIN) TAB PO SCH ×3 (07:56→20:31)
[2019-09-11] MEDS: meTOprolol SUCCINATE 100 MG (TOPROL XL) TAB PO SCH (07:56)
[2019-09-11] MEDS: LORATADINE (CLARITIN) 10 MG TAB PO SCH (07:56)
[2019-09-11] MEDS: amLODIPine 10 MG (NORVASC) TAB PO SCH (07:58)
[2019-09-11 08:00] VITALS: BP 132/62
[2019-09-11] MEDS: POLYETHYLENE GLYCOL 17 GM (MIRALAX) PACK PO SCH ×2 (08:05→21:23)
[2019-09-11] MEDS: ACETAMINOPHEN 500 MG TAB (TYLENOL) PO PRN (08:05)
--- NOTE | 2019-09-11 09:54 | Progress Note ---
Subjective Date Seen by a Provider: Sep 11, 2019 Time Seen by a Provider: 09:35 Subjective/Events-last exam Patient seen with Dr. Delarosa. Patient reports doing better today. Denies any pain of the left food. No N/V. No fever/chills. Tolerating diet. Focused Exam Lactate Level 09/09/19 17:33: Lactic Acid Level 1.28 Objective Exam Vital Signs Date Time Temp Pulse Resp B/P (MAP) Pulse Ox O2 Delivery O2 Flow Rate FiO2 09/11/19 08:00 36.4 100 18 132/62 (85) 99 Room Air 09/11/19 04:00 36.1 102 22 126/69 (88) 90 Room Air 09/11/19 00:04 36.5 94 16 160/90 (113) 99 Room Air 09/10/19 20:26 36.3 88 18 137/83 (101) 99 Room Air 09/10/19 20:00 99 Room Air 09/10/19 16:08 36.6 89 20 143/79 (100) 98 Room Air 09/10/19 11:59 36.2 88 20 167/89 (115) 99 Room Air I & O 09/11/19 07:00 Intake Total 2180 ml Output Total 200 ml Balance 1980 ml Capillary Refill : Less Than 3 SecondsLess Than 3 Seconds General Appearance: No Apparent Distress, WD/WN Neck: Full Range of Motion, Normal Inspection, Supple Respiratory: Normal Breath Sounds, No Accessory Muscle Use, No Respiratory Distress Cardiovascular: Regular Rate, Rhythm, No Murmur Gastrointestinal: normal bowel sounds, non tender, soft Extremity: Normal Capillary Refill, Normal Range of Motion, No Calf Tenderness Neurologic/Psychiatric: Alert, Oriented x3 Skin: Normal Color, Warm/Dry, Other (There is a wound of the left plantar aspect with fibrino-exudative debris. Erythema noted and some edema. Tender to palpation.) Results Lab Laboratory Tests 09/10/19 14:20: Glucometer 185H 09/10/19 20:16: Glucometer 148H Microbiology 09/09/19 Blood Culture - Preliminary, Resulted No growth 09/09/19 Urine Culture - Final, Complete 3 or more isolates 09/09/19 Gram Stain - Final, Resulted 09/09/19 Wound Culture - Preliminary, Resulted Staphylococcus aureus Assessment/Plan Assessment/Plan Assess & Plan/Chief Complaint A 48-year-old female with history of diabetes with a chronic diabetic left foot ulcer with mild to moderate acute on chronic cellulitis. She has been noncompliant with medications at home. VSS WBC 6.1 Continue with medical management with IV fluids, pain, nausea meds, abx, as well as keeping BS under control. Foot orthotics to offload pressure along this region. Continue to monitor for any necrosis or abscess, and if develops then would require debridement. May proceed with outpatient wound care for continued care upon discharge. Clinical Quality Measures DVT/VTE Risk/Contraindication: Risk Factor Score Per Nursin RFS Level Per Nursing on Admit: 4+=Very High Contraindications-Mechi: Other *list below* Other: cellulitis of the legs RYAN PÉREZ APRN Sep 11, 2019 09:54 POS
[2019-09-11 12:00] VITALS: BP 133/82
--- NOTE | 2019-09-11 12:24 | Progress Note - Hospitalist ---
Subjective HPI/CC On Admission Date Seen by Provider: Sep 11, 2019 Time Seen by Provider: 11:30 CC: Left foot wound cellulitis with poor follow up for wound care HPI: This is a 48yoWF clinic patient of [facility] who is known to me from prior admit to [facility] room 404 on 08/19/19 due to left foot wound with cellulitis. Patient had not been able to get to wound care due to lack of transportation. Patient has had OOC DM levels due to not taking insulin per her report. Elevated BP has been present too as it was last admit. Patient was placed on Ancef for cellulitis based on recent wound culture I&D. Subjective/Events-last exam MRSA noted so DC Ancef and started Vanc Patient denies pain currently Restarted all home meds Sugars are stable No fever Needs wound care and she wants to go to [facility]? Review of Systems General: Fatigue Focused Exam Lactate Level 09/09/19 17:33: Lactic Acid Level 1.28 Objective Exam Vital Signs Vital Signs Date Time Temp Pulse Resp B/P (MAP) Pulse Ox O2 Delivery O2 Flow Rate FiO2 09/11/19 12:00 36.3 83 16 133/82 (99) 94 Room Air Capillary Refill : Less Than 3 SecondsLess Than 3 Seconds General Appearance: No Apparent Distress, WD/WN, Chronically ill Respiratory: Chest Non Tender, Lungs Clear, Normal Breath Sounds, No Accessory Muscle Use, No Respiratory Distress Cardiovascular: Regular Rate, Rhythm, No Edema, No Gallop, No JVD, No Murmur, Normal Peripheral Pulses Neurologic/Psychiatric: Alert, Oriented x3, No Motor/Sensory Deficits, Normal Mood/Affect Results/Procedures Lab Patient resulted labs reviewed. Assessment/Plan Assessment and Plan Assess & Plan/Chief Complaint Assessment: Recurrent cellulitis of left foot MRSA identified on culture so started Vanc and DC Ancef DM foot ulcer s/p I&D Dr Delarosa last admit 08/19/19 Non-compliance DM OOC HTN OOC Migraines Plan: Vanc Pain control Imitrex Insulin BP meds Diagnosis/Problems Diagnosis/Problems (1) Diabetic foot ulcer Qualifiers: Diabetic foot ulcer location: midfoot Diabetes mellitus type: type 2 Laterality: left Non-pressure ulcer stage: limited to breakdown of skin Qualified Codes: E11.621 - Type 2 diabetes mellitus with foot ulcer; L97.421 - Non-pressure chronic ulcer of left heel and midfoot limited to breakdown of skin (2) Noncompliance Status: Acute (3) Renal insufficiency (4) Peripheral neuropathy Status: Acute Clinical Quality Measures DVT/VTE Risk/Contraindication: Risk Factor Score Per Nursin RFS Level Per Nursing on Admit: 4+=Very High Contraindications-Mechi: Other *list below* Other: cellulitis of the legs DANNY KHAN DO Sep 11, 2019 12:24 POS
[2019-09-11] MEDS: VANCOMYCIN INJECTION 1,000 MG in NS (IVPB) 250 ML IV SCH (15:21)
[2019-09-11] MEDS: NS IV 1000 ML 1,000 ML IV SCH (15:22)
[2019-09-11 16:00] VITALS: BP 137/79
[2019-09-11 20:00] VITALS: BP 151/83
[2019-09-11] MEDS: ENOXAPARIN 40 MG/0.4 ML (LOVENOX) SYR SC SCH (20:31)
[2019-09-11] MEDS: VITAMIN D3 1,000 UNITS (CHOLECALCIFEROL) TABLET PO SCH (20:32)
[2019-09-11] MEDS: ASCORBIC ACID (VIT C) 500 MG TABLET PO SCH (20:32)
[2019-09-12] VITALS: BP 132/76
[2019-09-12] MEDS: VANCOMYCIN INJECTION 1,000 MG in NS (IVPB) 250 ML IV SCH ×2 (02:26→15:14)
[2019-09-12 04:00] VITALS: BP 145/76
[2019-09-12 05:49] LABS: BASOPHILS % (AUTO) 0 % (0-10); EOSINOPHILS # (AUTO) 0.1 10^3/uL (0.0-0.3); EOSINOPHILS % (AUTO) 1 % (0-10); HEMATOCRIT 31 % (35-52); LYMPHOCYTES # (AUTO) 2.7 X 10^3 (1.0-4.0); LYMPHOCYTES % (AUTO) 35 % (12-44); MEAN CORPUSCULAR HEMOGLOBIN 20 PG (25-34); MEAN CORPUSCULAR HGB CONC 23 G/DL (32-36); MEAN CORPUSCULAR VOLUME 90 FL (80-99); MEAN PLATELET VOLUME 11.7 FL (7.4-10.4); MONOCYTES # (AUTO) 0.5 X 10^3 (0.0-1.0); MONOCYTES % (AUTO) 6 % (0-12); NEUTROPHILS # (AUTO) 4.4 X 10^3 (1.8-7.8); NEUTROPHILS % (AUTO) 57 % (42-75); PLATELET COUNT 214 10^3/uL (130-400); RED CELL DISTRIBUTION WIDTH 12.8 % (10.0-14.5); WHITE BLOOD COUNT 7.7 10^3/uL (4.3-11.0)
[2019-09-12 06:19] LABS: ALBUMIN 3.4 GM/DL (3.2-4.5); BILIRUBIN,TOTAL 0.2 MG/DL (0.1-1.0); CALCIUM 8.6 MG/DL (8.5-10.1); CREATININE SERUM 1.01 MG/DL (0.60-1.30); POTASSIUM 4.6 MMOL/L (3.6-5.0); TOTAL PROTEIN 6.4 GM/DL (6.4-8.2)
[2019-09-12] MEDS: inSUlin ASPART (NovoLOG) 1 UNIT/0.01 ML (CHARGE PER UNIT) SC SCH ×3 (06:24→16:37)
[2019-09-12 08:00] VITALS: BP 148/74
[2019-09-12] MEDS: GABAPENTIN 600 MG (NEURONTIN) TAB PO SCH ×3 (09:54→19:27)
[2019-09-12] MEDS: LORATADINE (CLARITIN) 10 MG TAB PO SCH (09:55)
[2019-09-12] MEDS: SENNA W/DOCUSATE (SENOKOT S) TABLET PO SCH ×2 (09:55→19:27)
[2019-09-12] MEDS: meTOprolol SUCCINATE 100 MG (TOPROL XL) TAB PO SCH (09:55)
[2019-09-12] MEDS: POLYETHYLENE GLYCOL 17 GM (MIRALAX) PACK PO SCH ×2 (09:55→19:26)
[2019-09-12] MEDS: amLODIPine 10 MG (NORVASC) TAB PO SCH (09:55)
[2019-09-12 12:00] VITALS: BP 169/82
[2019-09-12] MEDS: NS IV 1000 ML 1,000 ML IV SCH (12:17)
[2019-09-12] MEDS: IRON SUCROSE 200 MG/10 ML (VENOFER) VIAL IV SCH (12:17)
--- NOTE | 2019-09-12 12:20 | Progress Note - Hospitalist ---
Subjective HPI/CC On Admission Date Seen by Provider: Sep 12, 2019 Time Seen by Provider: 12:00 CC: Left foot wound cellulitis with poor follow up for wound care HPI: This is a 48yoWF clinic patient of [facility] who is known to me from prior admit to [facility] room 404 on 08/19/19 due to left foot wound with cellulitis. Patient had not been able to get to wound care due to lack of transportation. Patient has had OOC DM levels due to not taking insulin per her report. Elevated BP has been present too as it was last admit. Patient was placed on Ancef for cellulitis based on recent wound culture I&D. Subjective/Events-last exam Patient doing well MRSA of the left foot Hgb 7.0 unclear the source of loss for that so will order occult stool and make Dr Delarosa aware Patient denies tarry stools No pain is reported Lovenox for DVT PPx Review of Systems General: Fatigue Musculoskeletal: foot pain Focused Exam Lactate Level 09/09/19 17:33: Lactic Acid Level 1.28 Objective Exam Vital Signs Vital Signs Date Time Temp Pulse Resp B/P (MAP) Pulse Ox O2 Delivery O2 Flow Rate FiO2 09/12/19 12:00 36.1 80 18 169/82 (111) 99 Room Air Capillary Refill : Less Than 3 SecondsLess Than 3 Seconds General Appearance: No Apparent Distress, WD/WN, Chronically ill Respiratory: Chest Non Tender, Lungs Clear, Normal Breath Sounds, No Accessory Muscle Use, No Respiratory Distress Cardiovascular: Regular Rate, Rhythm, No Edema, No Gallop, No JVD, No Murmur, Normal Peripheral Pulses Neurologic/Psychiatric: Alert, Oriented x3, No Motor/Sensory Deficits, Normal Mood/Affect Results/Procedures Lab Laboratory Tests 09/12/19 05:26 Patient resulted labs reviewed. Assessment/Plan Assessment and Plan Assess & Plan/Chief Complaint Assessment: Recurrent cellulitis of left foot MRSA identified on culture so started Vanc and DC Ancef DM foot ulcer s/p I&D Dr Delarosa last admit 08/19/19 Non-compliance DM OOC HTN OOC Migraines Anemia? 7.0? Check iron level. Occult stools Plan: Vanc Pain control Imitrex Insulin BP meds Diagnosis/Problems Diagnosis/Problems (1) Diabetic foot ulcer Qualifiers: Diabetic foot ulcer location: midfoot Diabetes mellitus type: type 2 Laterality: left Non-pressure ulcer stage: limited to breakdown of skin Qualified Codes: E11.621 - Type 2 diabetes mellitus with foot ulcer; L97.421 - Non-pressure chronic ulcer of left heel and midfoot limited to breakdown of skin (2) Noncompliance Status: Acute (3) Renal insufficiency (4) Peripheral neuropathy Status: Acute Clinical Quality Measures DVT/VTE Risk/Contraindication: Risk Factor Score Per Nursin RFS Level Per Nursing on Admit: 4+=Very High Contraindications-Mechi: Other *list below* Other: cellulitis of the legs DANNY KHAN DO Sep 12, 2019 12:20 POS
[2019-09-12 16:00] VITALS: BP 172/96
--- NOTE | 2019-09-12 16:39 | NUR ---
BLOOD SUGAR 65. NOVOLOG HELD PER ORDER.
[2019-09-12] MEDS: ENOXAPARIN 40 MG/0.4 ML (LOVENOX) SYR SC SCH (19:26)
[2019-09-12] MEDS: ASCORBIC ACID (VIT C) 500 MG TABLET PO SCH (19:26)
[2019-09-12] MEDS: VITAMIN D3 1,000 UNITS (CHOLECALCIFEROL) TABLET PO SCH (19:27)
[2019-09-13] VITALS: BP 152/87
[2019-09-13] MEDS: VANCOMYCIN INJECTION 1,000 MG in NS (IVPB) 250 ML IV SCH ×2 (03:25→14:08)
[2019-09-13 05:24] LABS: BASOPHILS % (AUTO) 0 % (0-10); EOSINOPHILS # (AUTO) 0.1 10^3/uL (0.0-0.3); EOSINOPHILS % (AUTO) 1 % (0-10); HEMATOCRIT 27 % (35-52); HEMOGLOBIN 8.7 G/DL (11.5-16.0); LYMPHOCYTES # (AUTO) 2.7 X 10^3 (1.0-4.0); LYMPHOCYTES % (AUTO) 38 % (12-44); MEAN CORPUSCULAR HEMOGLOBIN 29 PG (25-34); MEAN CORPUSCULAR HGB CONC 32 G/DL (32-36); MEAN CORPUSCULAR VOLUME 90 FL (80-99); MEAN PLATELET VOLUME 11.4 FL (7.4-10.4); MONOCYTES # (AUTO) 0.5 X 10^3 (0.0-1.0); MONOCYTES % (AUTO) 8 % (0-12); NEUTROPHILS # (AUTO) 3.9 X 10^3 (1.8-7.8); NEUTROPHILS % (AUTO) 54 % (42-75); PLATELET COUNT 199 10^3/uL (130-400); RED CELL DISTRIBUTION WIDTH 12.6 % (10.0-14.5); WHITE BLOOD COUNT 7.2 10^3/uL (4.3-11.0)
[2019-09-13 05:54] LABS: BILIRUBIN,TOTAL 0.2 MG/DL (0.1-1.0); CALCIUM 8.3 MG/DL (8.5-10.1); POTASSIUM 4.4 MMOL/L (3.6-5.0); TOTAL PROTEIN 5.7 GM/DL (6.4-8.2)
[2019-09-13] MEDS: inSUlin ASPART (NovoLOG) 1 UNIT/0.01 ML (CHARGE PER UNIT) SC SCH ×3 (05:59→17:16)
[2019-09-13 08:00] VITALS: BP 173/95
--- NOTE | 2019-09-13 08:48 | Progress Note ---
Subjective Date Seen by a Provider: Sep 13, 2019 Time Seen by a Provider: 08:12 Subjective/Events-last exam First time seeing the patient but appears to be doing well Was ambulating back to bed from the bathroom Patient stated she had chills last night Does not complain of any new pain at this time. Deals with chronic pain from arthritis Stool occult blood was negative Hemoglobin increased to 8.7 Review of Systems General: Chills; No Other (fevers) HEENT: No Head Aches; Other (Blurry vision due to diabetes) Pulmonary: No Dyspnea, No Pleuritic Chest Pain Cardiovascular: No: Chest Pain, Edema Gastrointestinal: Constipation; No: Nausea, Vomiting Genitourinary: No Dysuria Musculoskeletal: other (joint pain) Neurological: No: Numbness Objective Exam Last Set of Vital Signs Vital Signs Date Time Temp Pulse Resp B/P (MAP) Pulse Ox O2 Delivery O2 Flow Rate FiO2 09/13/19 01:38 Room Air 09/13/19 00:00 36.6 86 18 152/87 (108) 97 Capillary Refill : Less Than 3 SecondsLess Than 3 Seconds I&O Intake and Output 09/13/19 00:00 Intake Total 4650 ml Output Total 200 ml Balance 4450 ml Intake Oral 3130 ml IV Total 1520 ml Output Urine Total 200 ml # Voids 9 General: Alert, Oriented X3, No Acute Distress Neck: No JVD, Other (Normal inspection) Heart: Regular Rate (and rhthym), No Murmurs Abdomen: Soft, No Tenderness Extremities: Other (No erythema, no calf tenderness) Results Lab Laboratory Tests 09/12/19 09:27: Glucometer 194H 09/12/19 12:07: Glucometer 201H 09/12/19 15:29: Glucometer 65L 09/12/19 21:02: Glucometer 230H 09/12/19 23:00: Stool Occult Blood Immunoassay NEGATIVE 09/13/19 04:40: White Blood Count 7.2, Red Blood Count 3.04L, Hemoglobin 8.7#L, Hematocrit 27L, Mean Corpuscular Volume 90, Mean Corpuscular Hemoglobin 29, Mean Corpuscular Hemoglobin Concent 32, Red Cell Distribution Width 12.6, Platelet Count 199, Mean Platelet Volume 11.4H, Neutrophils (%) (Auto) 54, Lymphocytes (%) (Auto) 38, Monocytes (%) (Auto) 8, Eosinophils (%) (Auto) 1, Basophils (%) (Auto) 0, Neutrophils # (Auto) 3.9, Lymphocytes # (Auto) 2.7, Monocytes # (Auto) 0.5, Eosinophils # (Auto) 0.1, Basophils # (Auto) 0.0, Sodium Level 141, Potassium Level 4.4, Chloride Level 110H, Carbon Dioxide Level 24, Anion Gap 7, Blood Urea Nitrogen 20H, Creatinine 1.00, Estimat Glomerular Filtration Rate 59, BUN/Creatinine Ratio 20, Glucose Level 141H, Calcium Level 8.3L, Corrected Calcium 9.1, Total Bilirubin 0.2, Aspartate Amino Transf (AST/SGOT) 12, Alanine Aminotransferase (ALT/SGPT) 10, Alkaline Phosphatase 24L, Total Protein 5.7L, Albumin 3.0L 09/13/19 05:30: Glucometer 126H Microbiology 09/09/19 Blood Culture - Preliminary, Resulted No growth 09/09/19 Urine Culture - Final, Complete 3 or more isolates 09/09/19 Gram Stain - Final, Complete 09/09/19 Wound Culture - Final, Complete Staphylococcus aureus Assessment/Plan Assessment/Plan Assess & Plan/Chief Complaint MRSA Cellulitis of left foot Non compliant DM HTN Anemia now at 8.7 GFR now at 59 Vanc Pain control Imitrex Insulin BP meds Continue to monitor hemoglobin Clinical Quality Measures DVT/VTE Risk/Contraindication: Risk Factor Score Per Nursin RFS Level Per Nursing on Admit: 4+=Very High Contraindications-Mechi: Other *list below* Other: cellulitis of the legs NICKOLAS SEVILLA MED STUDEN Sep 13, 2019 08:48 POS
[2019-09-13] MEDS: POLYETHYLENE GLYCOL 17 GM (MIRALAX) PACK PO SCH ×2 (08:54→21:20)
[2019-09-13] MEDS: meTOprolol SUCCINATE 100 MG (TOPROL XL) TAB PO SCH (08:55)
[2019-09-13] MEDS: LORATADINE (CLARITIN) 10 MG TAB PO SCH (08:55)
[2019-09-13] MEDS: SENNA W/DOCUSATE (SENOKOT S) TABLET PO SCH ×2 (08:55→21:18)
[2019-09-13] MEDS: amLODIPine 10 MG (NORVASC) TAB PO SCH (08:55)
[2019-09-13] MEDS: GABAPENTIN 600 MG (NEURONTIN) TAB PO SCH ×3 (08:55→21:18)
--- NOTE | 2019-09-13 10:24 | Progress Note - Hospitalist ---
NICKOLAS VICKERS [facility] 09/13/19 1024: Subjective HPI/CC On Admission Date Seen by Provider: Sep 13, 2019 Time Seen by Provider: 08:[address] Khan CC: Left foot wound cellulitis with poor follow up for wound care HPI: This is a 48yoWF clinic patient of [facility] who is known to me from prior admit to [facility] room 404 on 08/19/19 due to left foot wound with cellulitis. Patient had not been able to get to wound care due to lack of transportation. Patient has had OOC DM levels due to not taking insulin per her report. Elevated BP has been present too as it was last admit. Patient was placed on Ancef for cellulitis based on recent wound culture I&D. Subjective/Events-last exam Per Carlos Vickers MSIII First time seeing the patient but appears to be doing well Was ambulating back to bed from the bathroom Patient stated she had chills last night Does not complain of any new pain at this time. Deals with chronic pain from arthritis Stool occult blood was negative Hemoglobin increased to 8.7 Review of Systems General: No Chills, No Other (fevers) HEENT: No Head Aches; Other (Blurry vision secondary to Diabetes) Pulmonary: No Dyspnea, No Pleuritic Chest Pain Cardiovascular: No: Chest Pain, Edema Gastrointestinal: Constipation; No: Nausea, Vomiting Genitourinary: No Dysuria Musculoskeletal: other (Joint Pain) Objective Exam Vital Signs Vital Signs Date Time Temp Pulse Resp B/P (MAP) Pulse Ox O2 Delivery O2 Flow Rate FiO2 09/13/19 08:00 Room Air 09/13/19 08:00 36.3 91 20 173/95 (121) 97 Capillary Refill : Less Than 3 SecondsLess Than 3 Seconds General Appearance: No Apparent Distress, WD/WN HEENT: PERRL/EOMI Neck: Full Range of Motion, Normal Inspection Respiratory: Chest Non Tender, Normal Breath Sounds, No Accessory Muscle Use, No Respiratory Distress Cardiovascular: Regular Rate, Rhythm, No Edema, No Murmur, Normal Peripheral Pulses (2/4 bilaterally radial) Gastrointestinal: Non Tender, Soft Neurologic/Psychiatric: Alert, Oriented x3 Results/Procedures Lab Laboratory Tests 09/13/19 04:40 Patient resulted labs reviewed. Assessment/Plan Assessment and Plan Assess & Plan/Chief Complaint MRSA Cellulitis of left foot Non compliant DM HTN Anemia now at 8.7 GFR now at 59 Vanc Pain control Imitrex Insulin BP meds Continue to monitor hemoglobin Clinical Quality Measures DVT/VTE Risk/Contraindication: Risk Factor Score Per Nursin RFS Level Per Nursing on Admit: 4+=Very High Contraindications-Mechi: Other *list below* Other: cellulitis of the legs YAA KHAN DO 09/13/192127: Subjective Subjective/Events-last exam MRSA will require picc line and Vancomycin Hgb went up from 7.0 to 8.8, likely a lab error Occult was negative Lactulose is requested for bowel movement regimen I did reach out to Dr. Delarosa regarding the plan Review of Systems General: Fatigue Objective Exam General Appearance: No Apparent Distress Respiratory: Lungs Clear, Normal Breath Sounds Cardiovascular: Regular Rate, Rhythm Neurologic/Psychiatric: Alert, Oriented x3 Assessment/Plan Assessment and Plan Assess & Plan/Chief Complaint PICC line Vanc Wound care Diagnosis/Problems Diagnosis/Problems (1) Diabetic foot ulcer Qualifiers: Qualified Codes: E11.621 - Type 2 diabetes mellitus with foot ulcer; L97.421 - Non-pressure chronic ulcer of left heel and midfoot limited to breakdown of skin (2) Renal insufficiency (3) Noncompliance Status: Acute (4) Hyperglycemia Status: Acute (5) Acute renal failure Status: Acute Qualifiers: Qualified Codes: N17.9 - Acute kidney failure, unspecified Supervisory-Addendum Brief Verification & Attestation Participated in pt care: history, MDM, physical Personally performed: exam, history, MDM, supervision of care Care discussed with: Medical Student Procedures: n/a Results interpretation: Verified all documentation Verification and Attestation of Medical Student E/M Service A medical student performed and documented this service in my presence. I reviewed and verified all information documented by the medical student and made modifications to such information, when appropriate. I personally performed the physical exam and medical decision making. Yaa Khan, Sep 13, 2019,21:28 N[facility]OLAS [facility]ERS [facility] Sep 13, 2019 10:24 YAA SMITH DO Sep 13, 2019 21:28 POS
--- NOTE | 2019-09-13 10:54 | NUR ---
Pt states she lives at [facility] but is without health insurance or any income which she states is her main reason for noncompliance. She was last admitted on and was [facility] Arrangements were made for her meds to be vouchered by her discharging physician but pt stated she wasn't aware of the arrangement and was without money to pickup meds. She also states she failed to keep wound care appts. as was without transportation Pt has filed for social security disability but has lost disability status at her appeal hearings. She has been instructed by her personal injury attorney to start over with her disability filing which she plans to do. Contacted the [facility] pharmacy and they have agreed again to voucher discharge meds. will also set up [facility] for out-pt appts with Wound Care.will follow and assist.
[2019-09-13] MEDS: LACTULOSE SYRUP 10GM/15ML (ENULOSE) 30ML UDC PO SCH ×3 (11:34→21:20)
[2019-09-13] MEDS: NS IV 1000 ML 1,000 ML IV SCH (11:34)
[2019-09-13] MEDS: ENOXAPARIN 40 MG/0.4 ML (LOVENOX) SYR SC SCH ×2 (11:34→23:10)
[2019-09-13] MEDS ORDERED: TROUGH ORDER-PHARMACY XX NR (13:00)
--- NOTE | 2019-09-13 13:38 | NUR ---
"RD ASSESSMENT PMHx: HTN; GERD; DM PT INTERACTION: Pt was awake and pleasant during nutrition assessment. Pt states current appetite is pretty good, but was poor 2d prior to admit. Note pt avg PO intake of 100% x2d, per chart review. Pt states following a regular diet at home, but would like to choose lower-CHO food d/t DM. Pt states some issues with swallowing, stating it sometimes occurs d/t medication but unsure which medication. Pt states recent episodes of n/v that lasted a couple of days prior to admit. Pt states constant issues with constipation. Note last BM was 09/13, and pt currently on bowel regimen of senna BID and miralax BID, per chart review. Pt states recent wt gain, attributing it to fluid/feces buildup in her abdomen. Note 24# wt gain x1mon, per chart review. 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 Pt states current DM management as poor d/t lack of transportation. Note pt has been non-compliant, per chart review. ABNORMAL NUTRITION-RELATED LAB VALUES LOW: Ca 8.3; alkphos 24; Pro 5.7; alb 3.0 HIGH: Cl 110; BUN 20; glu 141 Est. kcal needs: 6592-8076 kcal | 15-18 kcal/kg Est. Pro needs: 131-153 g Pro | 1.2-1.4 g Pro/kg PES STATEMENT: Inadequate protein intake ([id number]) related to increased protein needs as evidenced by wounds (BM foot ulcer - left foot) INTERVENTION: Continue with current diet order of CHO 60g/m 3snack diet. Add Glucerna (vary) to meals BID. Provides 220 kcal and 10 g Pro per serving for perceived benefit to wound healing. Will continue to follow and reassess as pt needs and status change. MONITOR/EVALUATE: PO Intake; Plan of Care; Hydration Status; Weight Status; Lab Values Veronica Mariee, MS, RD, LD"
--- NOTE | 2019-09-13 14:08 | Diagnostic Imaging Report ---
INDICATION: PICC line placement Frontal chest obtained at 0157 p.m. and compared to 09/09/2019 The heart is borderline in size. Mediastinal silhouette is unremarkable. The lungs are clear. There is no pneumothorax or pleural fluid. New right-sided PICC line tip overlies the mid SVC. IMPRESSION: Mild cardiomegaly with no acute process in the chest. New right-sided PICC line tip overlies mid SVC. Dictated by: Dictated on workstation # [id number]
[2019-09-13 15:53] VITALS: BP 146/73
[2019-09-13] MEDS: ASCORBIC ACID (VIT C) 500 MG TABLET PO SCH (21:18)
[2019-09-13] MEDS: VITAMIN D3 1,000 UNITS (CHOLECALCIFEROL) TABLET PO SCH (21:20)
[2019-09-14] VITALS: BP 121/70
[2019-09-14] MEDS: VANCOMYCIN INJECTION 1,000 MG in NS (IVPB) 250 ML IV SCH (02:40)
[2019-09-14 05:02] LABS: BASOPHILS % (AUTO) 0 % (0-10); EOSINOPHILS # (AUTO) 0.1 10^3/uL (0.0-0.3); EOSINOPHILS % (AUTO) 1 % (0-10); HEMATOCRIT 28 % (35-52); HEMOGLOBIN 8.9 G/DL (11.5-16.0); LYMPHOCYTES # (AUTO) 2.5 X 10^3 (1.0-4.0); LYMPHOCYTES % (AUTO) 31 % (12-44); MEAN CORPUSCULAR HEMOGLOBIN 29 PG (25-34); MEAN CORPUSCULAR HGB CONC 32 G/DL (32-36); MEAN CORPUSCULAR VOLUME 90 FL (80-99); MEAN PLATELET VOLUME 10.9 FL (7.4-10.4); MONOCYTES # (AUTO) 0.6 X 10^3 (0.0-1.0); MONOCYTES % (AUTO) 7 % (0-12); NEUTROPHILS # (AUTO) 4.7 X 10^3 (1.8-7.8); NEUTROPHILS % (AUTO) 60 % (42-75); PLATELET COUNT 191 10^3/uL (130-400); RED CELL DISTRIBUTION WIDTH 12.6 % (10.0-14.5); WHITE BLOOD COUNT 7.9 10^3/uL (4.3-11.0)
[2019-09-14 05:30] LABS: ALANINE AMINOTRANSFERASE 18 U/L (0-55); ALBUMIN 3.3 GM/DL (3.2-4.5); ALKALINE PHOSPHATASE 27 U/L (40-136); BILIRUBIN,TOTAL 0.3 MG/DL (0.1-1.0); BUN/CREATININE RATIO 22; CALCIUM 8.5 MG/DL (8.5-10.1); CARBON DIOXIDE 24 MMOL/L (21-32); CHLORIDE 107 MMOL/L (98-107); CREATININE SERUM 0.83 MG/DL (0.60-1.30); GFR ESTIMATED > 60; GLUCOSE 115 MG/DL (70-105); SODIUM 141 MMOL/L (135-145); TOTAL PROTEIN 6.1 GM/DL (6.4-8.2)
[2019-09-14] MEDS: inSUlin ASPART (NovoLOG) 1 UNIT/0.01 ML (CHARGE PER UNIT) SC SCH ×2 (06:08→12:26)
[2019-09-14 08:00] VITALS: BP 135/74
--- NOTE | 2019-09-14 08:13 | Progress Note - Hospitalist ---
Subjective HPI/CC On Admission Date Seen by Provider: Sep 14, 2019 Time Seen by Provider: 07:[address] Saldaña CC: Left foot wound cellulitis with poor follow up for wound care HPI: This is a 48yoWF clinic patient of [facility] who is known to me from prior admit to [facility] room 404 on 08/19/19 due to left foot wound with cellulitis. Patient had not been able to get to wound care due to lack of transportation. Patient has had OOC DM levels due to not taking insulin per her report. Elevated BP has been present too as it was last admit. Patient was placed on Ancef for cellulitis based on recent wound culture I&D. Subjective/Events-last exam Patient stated that she had pain in her left foot and all over body that started yesterday Describes it as a tingling sensation and is sensitive. Rates it as a 7 out of 10 Also states that she has a deep pain in her left foot Did not sleep very well last night which is normal Lactulose was helpful and stated she had a good BM yesterday. Stated that she would like to continue on lactulose HgB is at 8.9 today Review of Systems General: No Chills, No Other (fevers) Pulmonary: No Dyspnea, No Cough Cardiovascular: No: Chest Pain, Edema Gastrointestinal: No: Nausea, Vomiting, Diarrhea Musculoskeletal: other (Chronic MSK pain) Objective Exam Vital Signs Vital Signs Date Time Temp Pulse Resp B/P (MAP) Pulse Ox O2 Delivery O2 Flow Rate FiO2 09/14/19 08:18 Room Air 09/14/19 08:00 36.9 92 20 135/74 (94) 94 Capillary Refill : Less Than 3 SecondsLess Than 3 Seconds General Appearance: No Apparent Distress, WD/WN Neck: Normal Inspection, Non Tender Respiratory: Chest Non Tender, Lungs Clear, Normal Breath Sounds, No Accessory Muscle Use, No Respiratory Distress Cardiovascular: Regular Rate, Rhythm, No JVD, No Murmur, Normal Peripheral Pulses (2/4 radial Bilaterally) Gastrointestinal: Non Tender, Soft Extremity: No Calf Tenderness, Other (Ulcer on the left lateral aspect of left Foot appears to be healing well. Slight edema on left foot) Neurologic/Psychiatric: Alert, Oriented x3 Skin: Normal Color, Warm/Dry Results/Procedures Lab Laboratory Tests 09/14/19 04:45 Patient resulted labs reviewed. Assessment/Plan Assessment and Plan Assess & Plan/Chief Complaint MRSA Cellulitis of left foot Non compliant DM HTN Anemia now at 8.9 GFR at 60 Picc line placement Improvement in constipation with lactulose Vanc Pain control Imitrex Insulin BP meds Continue to monitor hemoglobin Clinical Quality Measures DVT/VTE Risk/Contraindication: Risk Factor Score Per Nursin RFS Level Per Nursing on Admit: 4+=Very High Contraindications-Mechi: Other *list below* Other: cellulitis of the legs Supervisory-Addendum Brief Verification & Attestation Participated in pt care: other (JIM Vickers with Dr. Saldaña) Personally performed: other (JIM Vickers with Dr. Saldaña) Care discussed with: other (JIM Vickers with Dr. Saldaña) Procedures: n/a JIM Vickers with Dr. Piper VICKERS,[facility] Sep 14, 2019 08:13 POS
[2019-09-14] MEDS: meTOprolol SUCCINATE 100 MG (TOPROL XL) TAB PO SCH (09:21)
[2019-09-14] MEDS: LACTULOSE SYRUP 10GM/15ML (ENULOSE) 30ML UDC PO SCH ×2 (09:21→13:23)
[2019-09-14] MEDS: POLYETHYLENE GLYCOL 17 GM (MIRALAX) PACK PO SCH (09:22)
[2019-09-14] MEDS: SENNA W/DOCUSATE (SENOKOT S) TABLET PO SCH (09:22)
[2019-09-14] MEDS: LORATADINE (CLARITIN) 10 MG TAB PO SCH (09:22)
[2019-09-14] MEDS: IRON SUCROSE 200 MG/10 ML (VENOFER) VIAL IV SCH (09:22)
[2019-09-14] MEDS: GABAPENTIN 600 MG (NEURONTIN) TAB PO SCH ×2 (09:22→13:23)
[2019-09-14] MEDS: amLODIPine 10 MG (NORVASC) TAB PO SCH (09:22)
[2019-09-14] MEDS ORDERED: INSU100V37 SQ (09:57)
[2019-09-14] MEDS ORDERED: VANC2VIA IV (09:57)
[2019-09-14] MEDS ORDERED: LACT20SO2 PO (09:57)
--- NOTE | 2019-09-14 10:37 | Discharge Summary ---
[facility] 09/14/19 1037: Diagnosis/Chief Complaint Date of Admission Sep 09, 2019 at 19:19 Date of Discharge 09/14/19 Discharge Date: Sep 14, 2019 Discharge Time: 10:33 Admission Diagnosis Assessment: Recurrent cellulitis of left foot DM foot ulcer s/p I&D Dr Delarosa last admit 08/19/19 Non-compliance DM OOC HTN OOC Migraines Constipation Plan: PICC Line for vancomycin Arrange Transportation for wound care follow-up [facility] in one week Lactulose for Chronic Constipation Insulin BP meds Primary Care Dante Catherine MD Discharge Diagnosis Diabetic left foot ulcer DM Improved renal insufficiency (1) Diabetic foot ulcer (2) Renal insufficiency (3) Noncompliance Status: Acute (4) Hyperglycemia Status: Acute (5) Acute renal failure Status: Acute Discharge Summary Discharge Physical Exam Allergies: Coded Allergies: clarithromycin (Verified Allergy, Unknown, 08/17/18) hydrocodone (Verified Allergy, Unknown, 08/17/18) Vitals & I&Os Vital Signs Date Time Temp Pulse Resp B/P (MAP) Pulse Ox O2 Delivery O2 Flow Rate FiO2 09/14/19 08:18 Room Air 09/14/19 08:00 36.9 92 20 135/74 (94) 94 General Appearance: No Apparent Distress, WD/WN HEENT: Normal ENT Inspection Respiratory: Chest Non Tender, No Accessory Muscle Use, No Respiratory Distress Cardiovascular: Regular Rate, Rhythm, Normal Peripheral Pulses (2/4 bilaterally radial ) Gastrointestinal: Non Tender, Soft Extremity: Other (Healing Left foot ulcer on the lateral aspect with slight edema. ) Skin: Normal Color, Warm/Dry Neurologic/Psychiatric: Alert, Oriented x3, Normal Mood/Affect Hospital Course Was the Problem List Reviewed?: Yes Patient presented to the ER on 09/09 with a left foot diabetic ulcer. The ulcer had gotten worse because she was unable to follow-up with wound care. X-rays showed no evidence of osteomyelitis. Culture of ulcer showed MRSA. Patient was started on Vancomycin. Labs on 09/12 showed anemia with a Hgb of 7.0 and was followed with a stool occult test which was negative. Repeat labs on 09/13 showed Hgb of 8.7. Patient was placed on a PICC line for vancomycin and transportation was arranged to follow up with wound care. Labs (last 24 hrs) Laboratory Tests 09/13/19 13:05: Vancomycin Level Trough 20.5H 09/13/19 15:28: Glucometer 83 09/13/19 20:44: Glucometer 212H 09/14/19 04:45: White Blood Count 7.9, Red Blood Count 3.08L, Hemoglobin 8.9L, Hematocrit 28L, Mean Corpuscular Volume 90, Mean Corpuscular Hemoglobin 29, Mean Corpuscular Hemoglobin Concent 32, Red Cell Distribution Width 12.6, Platelet Count 191, Mean Platelet Volume 10.9H, Neutrophils (%) (Auto) 60, Lymphocytes (%) (Auto) 31, Monocytes (%) (Auto) 7, Eosinophils (%) (Auto) 1, Basophils (%) (Auto) 0, Neutrophils # (Auto) 4.7, Lymphocytes # (Auto) 2.5, Monocytes # (Auto) 0.6, Eosinophils # (Auto) 0.1, Basophils # (Auto) 0.0, Sodium Level 141, Potassium Level 4.0, Chloride Level 107, Carbon Dioxide Level 24, Anion Gap 10, Blood Urea Nitrogen 18, Creatinine 0.83, Estimat Glomerular Filtration Rate > 60, BUN/Creatinine Ratio 22, Glucose Level 115H, Calcium Level 8.5, Corrected Calcium 9.1, Total Bilirubin 0.3, Aspartate Amino Transf (AST/SGOT) 19, Alanine Aminotransferase (ALT/SGPT) 18, Alkaline Phosphatase 27L, Total Protein 6.1L, Albumin 3.3 Microbiology 09/09/19 Blood Culture - Preliminary, Resulted No growth 09/09/19 Urine Culture - Final, Complete 3 or more isolates 09/09/19 Gram Stain - Final, Complete 09/09/19 Wound Culture - Final, Complete Staphylococcus aureus Patient resulted labs reviewed. Pending Labs Laboratory Tests 09/14/19 04:45: White Blood Count 7.9, Red Blood Count 3.08, Hemoglobin 8.9, Hematocrit 28, Mean Corpuscular Volume 90, Mean Corpuscular Hemoglobin 29, Mean Corpuscular Hemoglobin Concent 32, Red Cell Distribution Width 12.6, Platelet Count 191, Mean Platelet Volume 10.9, Neutrophils (%) (Auto) 60, Lymphocytes (%) (Auto) 31, Monocytes (%) (Auto) 7, Eosinophils (%) (Auto) 1, Basophils (%) (Auto) 0, Neutrophils # (Auto) 4.7, Lymphocytes # (Auto) 2.5, Monocytes # (Auto) 0.6, Eosinophils # (Auto) 0.1, Basophils # (Auto) 0.0, Sodium Level 141, Potassium Level 4.0, Chloride Level 107, Carbon Dioxide Level 24, Anion Gap 10, Blood Urea Nitrogen 18, Creatinine 0.83, Estimat Glomerular Filtration Rate > 60, BUN/Cr eatinine Ratio 22, Glucose Level 115, Calcium Level 8.5, Corrected Calcium 9.1, Total Bilirubin 0.3, Aspartate Amino Transf (AST/SGOT) 19, Alanine Aminotransferase (ALT/SGPT) 18, Alkaline Phosphatase 27, Total Protein 6.1, Albumin 3.3 Discussion & Recommendations Discharge Planning: <30 minutes discharge planning Discharge Home Medications: Active Scripts Active Vancomycin 2,000 mg/20Ml-Water (Vancomycin HCl in Water) 2 Gm/20 Ml Vial 2 Gm IV DAILY 14 Days Lactulose 20 Gm/30 Ml Solution 10 Gm PO TID Tresiba (Insulin Degludec) 100 Unit/1 Ml Vial 30 Unit SQ BID Amlodipine Besylate 10 Mg Tablet 10 Mg PO DAILY Imitrex (Sumatriptan Succinate) 50 Mg Tab 50 Mg PO DAILY PRN Gabapentin 600 Mg Tablet 1,200 Mg PO TID Citalopram HBr (Citalopram Hydrobromide) 40 Mg Tablet 40 Mg PO DAILY LAST FILLED #30 06-30-19 Metoprolol Succinate 100 Mg Tab.er.24h 100 Mg PO DAILY Reported Vitamin D3 (Cholecalciferol (Vitamin D3)) 1,000 Unit Capsule 2,000 Unit PO HS Vitamin C (Ascorbate Calcium) 500 Mg Tablet 500 Mg PO HS Black Elderberry 575 mg Cap (Elderberry Fruit and Flower) 1 Each Capsule 1 Cap PO HS Novolog Flexpen (Insulin Aspart) 300 Units/3 Ml Solution 30 Units SQ TIDAC Ventolin Hfa (Albuterol Sulfate) 1 Puff Puff 2 Puff IH Q6H PRN 1 PUFF = 90 MCG Lipitor (Atorvastatin Calcium) 20 Mg Tablet 20 Mg PO HS Tylenol Extra Strength (Acetaminophen) 500 Mg Tablet 500-1,000 Mg PO Q6H PRN Instructions to patient/family Please see electronic discharge instructions given to patient. Clinical Quality Measures DVT/VTE Risk/Contraindication: Risk Factor Score Per Nursin RFS Level Per Nursing on Admit: 4+=Very High Contraindications-Mechi: Other *list below* Other: cellulitis of the legs Supervisory-Addendum Brief Verification & Attestation Participated in pt care: other (Carlos FERNANDEZ with Dr. Saldaña) Personally performed: other (Carlos FERNANDEZ with Dr. Saldaña) Care discussed with: other (Carlos FERNANDEZ with Dr. Saldaña) Procedures: n/a Carlos FERNANDEZ with DANNY Blanco DO 09/14/190: Diagnosis/Chief Complaint Discharge Diagnosis (1) Diabetic foot ulcer (2) Renal insufficiency (3) Skin ulcer of right great toe Status: Chronic (4) Cellulitis of left foot Status: Acute (5) Uncontrolled diabetes mellitus Status: Chronic (6) Anemia Discharge Summary Discharge Physical Exam Allergies: Coded Allergies: clarithromycin (Verified Allergy, Unknown, 08/17/18) hydrocodone (Verified Allergy, Unknown, 08/17/18) General Appearance: No Apparent Distress, WD/WN Respiratory: Lungs Clear Cardiovascular: Regular Rate, Rhythm Neurologic/Psychiatric: Alert, Oriented x3, No Motor/Sensory Deficits, Normal Mood/Affect Hospital Course Was the Problem List Reviewed?: Yes Hospital course: Pt had a lengthy hospital course for six days after she was admitted for diabetic wound on the left foot. Pt was found to have MRSA so Ancef was changed to Vanc. Arrangements were made to report to wound care in addition to Vancomycin once a day of 2G IV daily for fourteen days and she was deemed stable for discharge with very close follow up at [facility]. Discussion & Recommendations Discharge Planning: <30 minutes discharge planning Problem Qualifiers (1) Diabetic foot ulcer: Diabetic foot ulcer location: midfoot Diabetes mellitus type: type 2 Laterality: left Non-pressure ulcer stage: limited to breakdown of skin Qualified Codes: E11.621 - Type 2 diabetes mellitus with foot ulcer; L97.421 - Non-pressure chronic ulcer of left heel and midfoot limited to breakdown of skin (2) Acute renal failure: Acute renal failure type: unspecified Qualified Codes: N17.9 - Acute kidney failure, unspecified NICKOLAS SEVILLA MED STUDEN Sep 14, 2019 10:37 DANNY SMITH DO Sep 14, 2019 21:50 POS
[2019-09-14] MEDS ORDERED: VANCOMYCIN 2000 MG/NS 500 ML IVPB IV SCH ×2 (11:00)
[2019-09-14] MEDS: ENOXAPARIN 40 MG/0.4 ML (LOVENOX) SYR SC SCH (11:14)
[2019-09-14 14:00] VITALS: BP 135/74
--- NOTE | 2019-09-14 17:10 | NUR ---
Pt discharge home by [facility].Arrangements made for her to obtain her medications at [facility] pharmacy. Also pt will be receiving IV antibiotics for next 14 days at our out-pt surgery center. She will be picked up be [facility] for 11:00 am appt. and continue receiving out-pt services with [facility] or taxi vouchers as her transportation. a
== END 2019-09-14 14:00 | disposition home or self-care (01) | DRG 638 ==
LOC: EDUNIT# 17:08 → ER 17:11 → 4TH 19:19
PROVIDERS: ADMIT Internal Medicine; ATTEND Internal Medicine
DX: E11.621 Type 2 diabetes mellitus with foot ulcer (principal); L97.421 Non-pressure chronic ulcer of left heel and midfoot limited to breakdown of skin; L03.116 Cellulitis of left lower limb; B95.62 Methicillin resistant Staphylococcus aureus infection as the cause of diseases classified elsewhere; N39.0 Urinary tract infection, site not specified; E11.65 Type 2 diabetes mellitus with hyperglycemia; N17.9 Acute kidney failure, unspecified; I10 Essential (primary) hypertension; E11.42 Type 2 diabetes mellitus with diabetic polyneuropathy; E11.319 Type 2 diabetes mellitus with unspecified diabetic retinopathy without macular edema; K59.09 Other constipation; H35.30 Unspecified macular degeneration; F41.9 Anxiety disorder, unspecified; G43.909 Migraine, unspecified, not intractable, without status migrainosus; E78.00 Pure hypercholesterolemia, unspecified; K21.9 Gastro-esophageal reflux disease without esophagitis; Z79.4 Long term (current) use of insulin; Z91.120 Patient's intentional underdosing of medication regimen due to financial hardship
CPT/HCPCS: 36415; 36569; 71045; 73630; 76937; 80053; 80202; 81000; 82274; 82962; 83540; 83605; 85025; 85610; 85730; 87040; 87070; 87077; 87088; 87186; 87205; 94760; 96361; 96374; 96375

== ENCOUNTER → 2019-09-17 | Outpatient (CLI) | payer OTHER ==
[~2019-09-17] MED LIST changes: +ATOR20TA66 PO; +DOXA4TAB2 PO; +FLUO20CA42 PO; +GUAI600T43 PO; +HYDR-3923 PO; +LACT10SO33 PO; +LACT20SO2 PO; +LINE600T12 PO; -LINE600T5 PO; -METO-387 PO; -METO-395 PO; +METR-145 PO; +MTP100TCR PO; +MTP25TSR PO; +ONDA8TAB6 PO; +OSEL30CA PO; +VANC2VIA IV
== END ==
LOC: WOUNDCARE 09:30
PROVIDERS: ATTEND Surgery
DX: E11.621 Type 2 diabetes mellitus with foot ulcer (principal); E11.42 Type 2 diabetes mellitus with diabetic polyneuropathy; E11.52 Type 2 diabetes mellitus with diabetic peripheral angiopathy with gangrene; E11.65 Type 2 diabetes mellitus with hyperglycemia; L97.522 Non-pressure chronic ulcer of other part of left foot with fat layer exposed
CPT/HCPCS: 11042; 82962

== ENCOUNTER 2019-10-01 10:21 | Outpatient (RCR) | payer OTHER ==
[2019-09-15] MEDS: VANCOMYCIN 2000 MG/NS 500 ML IVPB IV SCH ×2 (11:19)
[2019-09-15 13:30] VITALS: BP 163/73
[2019-09-16] MEDS: VANCOMYCIN 2000 MG/NS 500 ML IVPB IV SCH ×2 (11:00)
[2019-09-16 13:31] VITALS: BP 151/71
[2019-09-17] MEDS: VANCOMYCIN 2000 MG/NS 500 ML IVPB IV SCH ×2 (13:01)
[2019-09-17 15:10] VITALS: BP 158/82
[2019-09-18 09:03] VITALS: BP 179/89
[2019-09-18] MEDS: VANCOMYCIN 2000 MG/NS 500 ML IVPB IV SCH ×2 (09:23)
[2019-09-19 08:50] VITALS: BP 152/79
[2019-09-19] MEDS: VANCOMYCIN 2000 MG/NS 500 ML IVPB IV SCH ×2 (09:05)
[2019-09-20] MEDS: VANCOMYCIN 2000 MG/NS 500 ML IVPB IV SCH ×2 (11:47)
[2019-09-20 13:50] VITALS: BP 196/96
[2019-09-21 10:29] VITALS: BP 188/99
[2019-09-21] MEDS: VANCOMYCIN 2000 MG/NS 500 ML IVPB IV SCH ×2 (10:40)
[2019-09-22] MEDS: VANCOMYCIN 2000 MG/NS 500 ML IVPB IV SCH ×2 (10:51)
[2019-09-22 13:02] VITALS: BP 197/99
--- NOTE | 2019-09-23 11:25 | NUR ---
[facility] CALLED AND NOTIFIED OF Vanc trough results, new order to hold today's dose of vanc and for patient to have trough redrawn tomorrow 09/24/19. Pt informed of plan and verbalizes understanding.
[2019-09-23 11:30] VITALS: BP 179/88
[2019-09-24 11:05] VITALS: BP 175/91
[2019-09-24 11:39] LABS: CALCIUM 8.8 MG/DL (8.5-10.1); CREATININE SERUM 1.62 MG/DL (0.60-1.30); POTASSIUM 4.9 MMOL/L (3.6-5.0)
[2019-09-24 11:46] LABS: VANCOMYCIN,TROUGH 13.2 UG/ML (10.0-20.0)
[2019-09-24] MEDS: VANCOMYCIN 1500 MG/NS 500 ML IVPB IV SCH ×2 (12:24)
--- NOTE | 2019-09-24 14:00 | NUR ---
MESSAGE LEFT ON DR HKAN'S PHONE TO REPORT TODAY'S LAB RESULTS. ELEVATED GLUCOSE, RISING CREATININE. PT REPORTS SHE HAS FORGOTTEN TO TAKE HER INSULIN. PT STRONGLY ENCOURAGED TO TAKE MEDS PRESCRIBED. PT VOICED UNDERSTANDING.
--- NOTE | 2019-09-24 15:30 | NUR ---
DR KHAN DID NOT RETURN CALL PRIOR TO PT'S DEPARTURE TODAY.
[2019-09-25] MEDS: VANCOMYCIN 1500 MG/NS 500 ML IVPB IV SCH ×2 (09:14)
[2019-09-25 09:37] VITALS: BP 176/94
[2019-09-26] MEDS: VANCOMYCIN 1500 MG/NS 500 ML IVPB IV SCH ×2 (09:44)
[2019-09-26 10:14] VITALS: BP 188/95
[2019-09-27] MEDS: VANCOMYCIN 1500 MG/NS 500 ML IVPB IV SCH ×2 (10:50)
[2019-09-27 13:00] VITALS: BP 173/99
[~2019-10-01] VITALS: Ht 165.1 cm; Wt 109.0 kg
[~2019-10-01 10:21] MED LIST changes: +LINE600T12 PO; -LINE600T5 PO; -METO-387 PO; -METO-395 PO; +MTP100TCR PO; +MTP25TSR PO; +TROUGH ORDER-PHARMACY XX NR
[2019-10-01 11:00] VITALS: BP 165/90
[2019-10-22] MEDS ORDERED: CITA40TA11 PO (09:39)
[2019-10-22] MEDS ORDERED: AMLO10TA7 PO (09:39)
[2019-10-22] MEDS ORDERED: GBPN600T PO (09:39)
[2019-10-22] MEDS ORDERED: MTP100TCR PO (09:39)
[2019-10-22] MEDS ORDERED: LACT10SO33 PO (09:57)
[2019-10-22] MEDS ORDERED: INSU100I23 SQ (09:57)
[2019-10-22] MEDS ORDERED: INSU100I29 SQ (10:02)
[2019-10-22] MEDS ORDERED: FLUO20CA42 PO (10:02)
[2019-10-22] MEDS ORDERED: HYDR25TA4 PO (10:06)
[2019-10-25] MEDS ORDERED: DOXA4TAB2 PO (10:28)
[2019-10-25] MEDS ORDERED: METR-145 PO (10:28)
[2019-10-25] MEDS ORDERED: HYDR-3923 PO (10:28)
[2019-11-01] MEDS ORDERED: HYDR-3923 PO (11:19)
[2019-11-01] MEDS ORDERED: METR-145 PO (11:22)
[2019-11-01] MEDS ORDERED: ATOR20TA66 PO (11:26)
[2019-11-01] MEDS ORDERED: DOXA4TAB2 PO (11:29)
[2019-11-01] MEDS ORDERED: OSEL30CA PO (12:22)
[2019-11-01] MEDS ORDERED: GBPN600T PO (12:22)
[2019-11-01] MEDS ORDERED: ONDA8TAB6 PO (12:22)
[2019-11-01] MEDS ORDERED: GUAI600T43 PO (12:22)
[2019-11-27] MEDS ORDERED: CYCL10TA9 PO (17:01)
[2019-11-27] MEDS ORDERED: PRD20T PO (17:01)
== END 2019-12-14 | disposition home or self-care (01) ==
LOC: SDC 10:21
PROVIDERS: ATTEND Internal Medicine
DX: E11.621 Type 2 diabetes mellitus with foot ulcer (principal); L97.929 Non-pressure chronic ulcer of unspecified part of left lower leg with unspecified severity; J45.909 Unspecified asthma, uncomplicated; Z87.81 Personal history of (healed) traumatic fracture; Z79.4 Long term (current) use of insulin
CPT/HCPCS: 36415; 80048; 80202; 96365; 96366; 99211; 99212

== ENCOUNTER → 2019-10-01 | Outpatient (CLI) | payer OTHER ==
[~2019-10-01] MED LIST changes: -ATOR20TA66 PO; -DOXA4TAB2 PO; -FLUO20CA42 PO; -GUAI600T43 PO; -HYDR-3923 PO; -LACT10SO33 PO; -LINE600T12 PO; +LINE600T5 PO; +METO-387 PO; +METO-395 PO; -METR-145 PO; -MTP100TCR PO; -MTP25TSR PO; -ONDA8TAB6 PO; -OSEL30CA PO
== END ==
LOC: WOUNDCARE 08:59
PROVIDERS: ATTEND Surgery
DX: E11.621 Type 2 diabetes mellitus with foot ulcer (principal); E11.42 Type 2 diabetes mellitus with diabetic polyneuropathy; E11.65 Type 2 diabetes mellitus with hyperglycemia; L97.522 Non-pressure chronic ulcer of other part of left foot with fat layer exposed
CPT/HCPCS: 11042; 82962

== ENCOUNTER → 2019-10-08 | Outpatient (CLI) | payer OTHER ==
[~2019-10-08] MED LIST changes: -LINE600T12 PO; +LINE600T5 PO; +METO-387 PO; +METO-395 PO; -MTP100TCR PO; -MTP25TSR PO; -TROUGH ORDER-PHARMACY XX NR
== END ==
LOC: WOUNDCARE 10:20
PROVIDERS: ATTEND Surgery
DX: E11.621 Type 2 diabetes mellitus with foot ulcer (principal); E11.42 Type 2 diabetes mellitus with diabetic polyneuropathy; E11.65 Type 2 diabetes mellitus with hyperglycemia; L97.522 Non-pressure chronic ulcer of other part of left foot with fat layer exposed
CPT/HCPCS: 11042

== ENCOUNTER → 2019-10-15 | Outpatient (CLI) | payer OTHER | LOC: LAB 11:43 | PROVIDERS: ATTEND Surgery | DX: E11.621 Type 2 diabetes mellitus with foot ulcer (principal); E11.42 Type 2 diabetes mellitus with diabetic polyneuropathy; E11.65 Type 2 diabetes mellitus with hyperglycemia; L97.522 Non-pressure chronic ulcer of other part of left foot with fat layer exposed | CPT/HCPCS: 36415; 83036 ==

== ENCOUNTER → 2019-10-15 | Outpatient (CLI) | payer OTHER | LOC: WOUNDCARE 09:51 | PROVIDERS: ATTEND Surgery | DX: E11.621 Type 2 diabetes mellitus with foot ulcer (principal); E11.42 Type 2 diabetes mellitus with diabetic polyneuropathy; E11.65 Type 2 diabetes mellitus with hyperglycemia; L97.522 Non-pressure chronic ulcer of other part of left foot with fat layer exposed; E11.52 Type 2 diabetes mellitus with diabetic peripheral angiopathy with gangrene | CPT/HCPCS: 11042 ==

== ENCOUNTER 2019-10-18 09:24 | Outpatient (RCR) | payer OTHER | END 2019-10-18 10:45 | disposition home or self-care (01) | PROVIDERS: ATTEND Surgery | DX: E11.621 Type 2 diabetes mellitus with foot ulcer (principal); L97.929 Non-pressure chronic ulcer of unspecified part of left lower leg with unspecified severity; J45.909 Unspecified asthma, uncomplicated; Z87.81 Personal history of (healed) traumatic fracture; Z79.4 Long term (current) use of insulin ==

== ENCOUNTER 2019-10-21 20:12 | Observation (INO) | payer OTHER ==
[~2019-10-21] VITALS: Ht 162.6 cm; Wt 105.5 kg
[~2019-10-21 20:12] MED LIST changes: +LINE600T12 PO; -LINE600T5 PO; -METO-387 PO; -METO-395 PO; +MTP100TCR PO; +MTP25TSR PO
[2019-10-21 20:25] LABS: BASOPHILS % (AUTO) 0 % (0-10); EOSINOPHILS # (AUTO) 0.1 10^3/uL (0.0-0.3); EOSINOPHILS % (AUTO) 1 % (0-10); HEMATOCRIT 30 % (35-52); HEMOGLOBIN 10.6 G/DL (11.5-16.0); LYMPHOCYTES # (AUTO) 2.9 X 10^3 (1.0-4.0); LYMPHOCYTES % (AUTO) 32 % (12-44); MEAN CORPUSCULAR HEMOGLOBIN 29 PG (25-34); MEAN CORPUSCULAR HGB CONC 35 G/DL (32-36); MEAN CORPUSCULAR VOLUME 83 FL (80-99); MEAN PLATELET VOLUME 10.6 FL (7.4-10.4); MONOCYTES # (AUTO) 0.6 X 10^3 (0.0-1.0); MONOCYTES % (AUTO) 7 % (0-12); NEUTROPHILS # (AUTO) 5.4 X 10^3 (1.8-7.8); NEUTROPHILS % (AUTO) 60 % (42-75); PLATELET COUNT 228 10^3/uL (130-400); RED CELL DISTRIBUTION WIDTH 13.9 % (10.0-14.5); WHITE BLOOD COUNT 8.9 10^3/uL (4.3-11.0)
[2019-10-21] MEDS ORDERED: PROMETHAZINE INJ 25 MG/ML (PHENERGAN) AMP IVP ONE (20:30)
[2019-10-21 20:43] LABS: BILIRUBIN,TOTAL 0.3 MG/DL (0.1-1.0); CALCIUM 9.5 MG/DL (8.5-10.1); CREATININE SERUM 1.85 MG/DL (0.60-1.30); POTASSIUM 4.4 MMOL/L (3.6-5.0); TOTAL PROTEIN 7.4 GM/DL (6.4-8.2)
[2019-10-21] MEDS ORDERED: NS IV 1000 ML 1,000 ML IV SCH (20:45)
--- NOTE | 2019-10-21 21:35 | ED General ---
General Chief Complaint: Abdominal/GI Problems Stated Complaint: PANIC ATTACK Nursing Triage Note: EMS CALLED OUT FOR PAINIC ATTACK WITH SOB, UPON ARRIVAL PATIENT STATES SHE FEELS DEHYDRATED, IS OUT OF HER INSULIN, HAVING NAUSEA, DIZZINESS AND ABDOMINAL PAIN. PATIENT ARRIVES TO ROOM 6, ALERT AND ORIENTED X4. Nursing Sepsis Screen: No Definite Risk Source of Information: Patient Exam Limitations: No Limitations History of Present Illness Date Seen by Provider: Oct 21, 2019 Time Seen by Provider: 20:10 Initial Comments 49-year-old female who was brought to the emergency room by [facility] for complaints of a panic attack. She reports that for the past few days she has had increased anxiety and nausea, epigastric abdominal pain with vomiting, she reports feeling dehydrated. She is alert and oriented on the emergency room. She reports that she has been out of her insulin for the past 3 days. Timing/Duration: 3-4 Days Associated Systoms: Cough, Nausea/Vomiting Allergies and Home Medications Allergies Coded Allergies: clarithromycin (Verified Allergy, Unknown, 10/21/19) hydrocodone (Verified Allergy, Unknown, 10/21/19) Home Medications Acetaminophen 500 Mg Tablet, 500-1,000 MG PO Q6H PRN for PAIN-MILD, (Reported) Albuterol Sulfate 1 Puff Puff, 2 PUFF IH Q6H PRN for SHORTNESS OF BREATH, (Reported) 1 PUFF = 90 MCG Amlodipine Besylate 10 Mg Tablet, 10 MG PO DAILY Prescribed by: VINCE CEE on 08/23/19 1657 Ascorbate Calcium 500 Mg Tablet, 500 MG PO HS, (Reported) Atorvastatin Calcium 20 Mg Tablet, 20 MG PO HS, (Reported) Cholecalciferol (Vitamin D3) 1,000 Unit Capsule, 2,000 UNIT PO HS, (Reported) Citalopram Hydrobromide 40 Mg Tablet, 40 MG PO DAILY LAST FILLED #30 06-30-19 Prescribed by: VINCE CEE on 08/23/19 1654 Elderberry Fruit and Flower 1 Each Capsule, 1 CAP PO HS, (Reported) Gabapentin 600 Mg Tablet, 1,200 MG PO TID Prescribed by: VINCE CEE on 08/23/19 1654 Insulin Aspart 300 Units/3 Ml Solution, 30 UNITS SQ TIDAC, (Reported) Insulin Degludec 100 Unit/1 Ml Vial, 30 UNIT SQ BID Prescribed by: DANNY KHAN on 09/14/1957 Lactulose 20 Gm/30 Ml Solution, 10 GM PO TID Prescribed by: DANNY KHAN on 09/14/19956 Metoprolol Succinate 100 Mg Tab.er.24h, 100 MG PO DAILY Prescribed by: VINCE CEE on 08/23/191653 Sumatriptan Succinate 50 Mg Tab, 50 MG PO DAILY PRN for PAIN-SEVERE (7-10) Prescribed by: VINCE CEE on 08/23/191653 Patient Home Medication List Home Medication List Reviewed: Yes Review of Systems Review of Systems Constitutional: see HPI; No chills, No fever Gastrointestinal: see HPI, nausea, vomiting Psychiatric/Neurological: See HPI, Anxiety All Other Systems Reviewed Negative Unless Noted: Yes Past Exvhqbs-Puzhtt-Rmauko Hx Past Med/Social Hx: Reviewed Nursing Past Med/Soc Hx Patient Social History Alcohol Use: Denies Use Recreational Drug Use: No 2nd Hand Smoke Exposure: No Recent Foreign Travel: No Contact w/Someone Who Travel: No Recent Infectious Disease Expo: No Recent Hopitalizations: No Physical Abuse: No Sexual Abuse: No Mistreated: No Fear: No Immunizations Up To Date Tetanus Booster (TDap): Unknown Seasonal Allergies Seasonal Allergies: Yes Past Medical History Surgeries: Yes Abdominal, Section, Eye Surgery, Orthopedic Respiratory: No Cardiac: Yes Hypertension Neurological: Yes (PERIPHERAL NEUROPATHY) Neuropathy 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 Genitourinary: No Gastrointestinal: Yes Gastroesophageal Reflux Musculoskeletal: No Endocrine: Yes Diabetes, Insulin dep Are Your Blood Sugars Over 250: Yes HEENT: Yes (RETINOPATHY) Macular Degeneration Cancer: No Psychosocial: Yes Anxiety Integumentary: Yes (L foot wound) Recent Skin Changes Blood Disorders: No Family Medical History Reviewed Nursing Family Hx No Pertinent Family Hx Physical Exam Vital Signs Vital Signs - First Documented 10/21/19 20:13 Temp 36.7 Pulse 88 Resp 20 B/P (MAP) 123/86 (98) Pulse Ox 99 Capillary Refill : Less Than 3 Seconds Height, Weight, BMI Height: 5'5.00" Weight: 221lbs. 4.8oz. 100.418550le; 38.00 BMI Method:Stated General Appearance: No Apparent Distress, WD/WN, Anxious Eyes: Bilateral Eye Normal Inspection, Bilateral Eye PERRL, Bilateral Eye EOMI Respiratory: Chest Non Tender, Lungs Clear, Normal Breath Sounds, No Accessory Muscle Use, No Respiratory Distress Cardiovascular: Regular Rate, Rhythm, No Edema, No Gallop, No JVD, No Murmur, Normal Peripheral Pulses Gastrointestinal: Normal Bowel Sounds, No Organomegaly, No Pulsatile Mass, Non Tender, Soft Extremity: Normal Capillary Refill Neurologic/Psychiatric: Alert, Oriented x3, Normal Mood/Affect Skin: Normal Color, Warm/Dry Progress/Results/Core Measures Suspected Sepsis Recent Fever Within 48 Hours: No Infection Criteria Present: None New/Unexplained Altered Menta: No Sepsis Screen: No Definite Risk SIRS Temperature: Pulse: 88 Respiratory Rate: 20 Laboratory Tests 10/21/19 20:18: White Blood Count 8.9 Blood Pressure 123 /86 Mean: 98 Laboratory Tests 10/21/19 20:18: Creatinine 1.85H, Platelet Count 228, Total Bilirubin 0.3 Results/Orders Lab Results Laboratory Tests Test 10/21/19 20:18 10/21/19 21:25 Range/Units White Blood Count 8.9 4.3-11.0 10^3/uL Red Blood Count 3.66 L 4.35-5.85 10^6/uL Hemoglobin 10.6 L 11.5-16.0 G/DL Hematocrit 30 L 35-52 % Mean Corpuscular Volume 83 80-99 FL Mean Corpuscular Hemoglobin 29 25-34 PG Mean Corpuscular Hemoglobin Concent 35 32-36 G/DL Red Cell Distribution Width 13.9 10.0-14.5 % Platelet Count 228 130-400 10^3/uL Mean Platelet Volume 10.6 H 7.4-10.4 FL Neutrophils (%) (Auto) 60 42-75 % Lymphocytes (%) (Auto) 32 12-44 % Monocytes (%) (Auto) 7 0-12 % Eosinophils (%) (Auto) 1 0-10 % Basophils (%) (Auto) 0 0-10 % Neutrophils # (Auto) 5.4 1.8-7.8 X 10^3 Lymphocytes # (Auto) 2.9 1.0-4.0 X 10^3 Monocytes # (Auto) 0.6 0.0-1.0 X 10^3 Eosinophils # (Auto) 0.1 0.0-0.3 10^3/uL Basophils # (Auto) 0.0 0.0-0.1 10^3/uL Sodium Level 137 135-145 MMOL/L Potassium Level 4.4 3.6-5.0 MMOL/L Chloride Level 100 98-107 MMOL/L Carbon Dioxide Level 23 21-32 MMOL/L Anion Gap 14 5-14 MMOL/L Blood Urea Nitrogen 35 H 7-18 MG/DL Creatinine 1.85 H 0.60-1.30 MG/DL Estimat Glomerular Filtration Rate 29 BUN/Creatinine Ratio 19 Glucose Level 219 H 70-105 MG/DL Calcium Level 9.5 8.5-10.1 MG/DL Corrected Calcium 9.5 8.5-10.1 MG/DL Total Bilirubin 0.3 0.1-1.0 MG/DL Aspartate Amino Transf (AST/SGOT) 8 5-34 U/L Alanine Aminotransferase (ALT/SGPT) 9 0-55 U/L Alkaline Phosphatase 38 L 40-136 U/L Total Protein 7.4 6.4-8.2 GM/DL Albumin 4.0 3.2-4.5 GM/DL Amylase Level 34 25-125 U/L Lipase 18 8-78 U/L Urine Color YELLOW Urine Clarity CLEAR Urine pH 5.0 5-9 Urine Specific [place] >=1.030 1.016-1.022 Urine Protein 3+ H NEGATIVE Urine Glucose (UA) 3+ H NEGATIVE Urine Ketones NEGATIVE NEGATIVE Urine Nitrite NEGATIVE NEGATIVE Urine Bilirubin NEGATIVE NEGATIVE Urine Urobilinogen 0.2 < = 1.0 MG/DL Urine Leukocyte Esterase TRACE NEGATIVE Urine RBC (Auto) 1+ H NEGATIVE Urine RBC 2-5 H /HPF Urine WBC 0-2 /HPF Urine Squamous Epithelial Cells 5-10 /HPF Urine Crystals PRESENT H /LPF Urine Amorphous Sediment MOD SUDHIR URATES H /LPF Urine Bacteria TRACE /HPF Urine Casts NONE /LPF Urine Mucus NEGATIVE /LPF Urine Trichomonas FEW H /HPF Urine Culture Indicated YES My Orders Orders - BART ARRIOLA Comprehensive Metabolic Panel (10/21/19 20:17) Lipase (10/21/19 20:17) Amylase (10/21/19 20:17) Ua Culture If Indicated (10/21/19 20:17) Ed Iv/Invasive Line Start (10/21/19 20:17) Cbc With Automated Diff (10/21/19 20:17) Chest 1 View, Ap/Pa Only (10/21/19 20:24) Promethazine Injection (Phenergan Injec (10/21/19 20:30) Ns Iv 1000 Ml (Sodium Chloride 0.9%) (10/21/19 20:45) Urine Culture (10/21/19 21:25) Medications Given in ED Current Medications Medications Dose Ordered Sig/Arlet Route Start Time Stop Time Status Last Admin Dose Admin Promethazine HCl 25 mg ONCE ONCE IVP 10/21/19 20:30 10/21/19 20:31 DC 10/21/19 20:32 25 MG Vital Signs/I&O 10/21/19 20:13 Temp 36.7 Pulse 88 Resp 20 B/P (MAP) 123/86 (98) Pulse Ox 99 Capillary Refill : Less Than 3 Seconds Blood Pressure Mean: 98 Progress Note : Time: 22:27 Progress Note I have seen and evaluated the patient. I've informed her of her laboratory studies. I have discussed the case with Dr. Cee and given the patient's elevated function she agrees to let her for IV fluids and repeat labs. We will wait until her urine culture is resulted. She agrees with plan of care and reports that she is feeling better after fluid administration and Phenergan. We will hold insulin until repeat labs. Diagnostic Imaging Comments [facility], [place] NAME: COLLINS COTA [facility] REC#: [id number] PT STATUS: REG ER : 1970 PHYSICIAN: BART ARRIOLA ADMIT DATE: 10/21/19/ER Signed Date of Exam:10/21/19 CHEST 1 VIEW, AP/PA ONLY EXAMINATION: Portable erect AP chest at 8:45 PM INDICATION: Panic attack The heart size is at the upper limits of normal and stable when compared to 09/13/2019. The lungs are clear. There is no evidence for failure, pneumonia or for a pleural effusion. The mediastinum is not widened. The osseous structures are intact. IMPRESSION: There is no evidence for active disease. Dictated by: Dictated on workstation # [id number] Dict: 10/21/197 Trans: 10/21/19 2202 JOSEPHINE [id number] Interpreted by: ERIC BRITO MD Electronically signed by: ERIC BRITO MD 10/21/192 Reviewed: Reviewed by Me Departure Communication (Admissions) Time/Spoke to Admitting Phy: 20:20 Dr. Cee Impression Primary Impression: Acute renal failure (ARF) Additional Impression: Nausea & vomiting Disposition: 01 HOME, SELF-CARE Condition: Stable/Unchanged Admissions Decision to Admit Reason: Admit from ER (General) Decision to Admit/Date: Oct 21, 2019 Time/Decision to Admit Time: 20:20 Departure-Patient Inst. Referrals: ALVA BENTLEY MD (PCP) Primary Care Physician BART ARRIOLA Oct 21, 2019 21:35
--- NOTE | 2019-10-21 21:44 | Diagnostic Imaging Report ---
EXAMINATION: Portable erect AP chest at 8:45 PM INDICATION: Panic attack The heart size is at the upper limits of normal and stable when compared to 09/13/2019. The lungs are clear. There is no evidence for failure, pneumonia or for a pleural effusion. The mediastinum is not widened. The osseous structures are intact. IMPRESSION: There is no evidence for active disease. Dictated by: Dictated on workstation # [id number]
[2019-10-21 21:52] LABS: BILIRUBIN,URINE NEGATIVE (NEGATIVE); CLARITY,URINE CLEAR; COLOR,URINE YELLOW; GLUCOSE, URINE (UA) 3+ (NEGATIVE); KETONES,URINE NEGATIVE (NEGATIVE); LEUKOCYTE ESTERASE ,URINE TRACE (NEGATIVE); NITRITE,URINE NEGATIVE (NEGATIVE); PROTEIN,URINE 3+ (NEGATIVE)
[2019-10-21 22:06] LABS: AMORPHOUS SEDIMENT,UR MOD AMOR URATES /LPF; BACTERIA,URINE TRACE /HPF; TRICHOMONAS,URINE FEW /HPF; WBC,URINE 0-2 /HPF
--- NOTE | 2019-10-21 23:10 | NUR ---
COLLINS COTA admitted to room 408-1, with an admitting diagnosis of ARF, NAUSEA AND VOMITING on 10/21/19 from ER via , accompanied by ER STAFF. COLLINS COTA introduced to surroundings, call light, bed controls, phone, TV, temperature control, lights, meal times, smoking policy, visitor policy, side rail policy, bathrooms and showers. Patient Rights given to patient in the handbook. COLLINS COTA verbalizes understanding that [facility] is not responsible for the loss or damage to any personal effects or valuables that are kept in the patients posession during their hospitalization. Patient and/or family were informed about the Rapid Response Team and its purpose.
[2019-10-21 23:14] VITALS: BP 169/92
[2019-10-22] VITALS (7 sets, daily range): BP systolic 97–186; BP diastolic 62–99
[2019-10-22] MEDS: NS IV 1000 ML 1,000 ML IV SCH ×3 (01:54→21:33)
[2019-10-22] MEDS ORDERED: PROMETHAZINE INJ 25 MG/ML (PHENERGAN) AMP IV PRN (02:00)
[2019-10-22 05:39] LABS: BASOPHILS % (AUTO) 0 % (0-10); EOSINOPHILS # (AUTO) 0.1 10^3/uL (0.0-0.3); EOSINOPHILS % (AUTO) 1 % (0-10); HEMATOCRIT 28 % (35-52); HEMOGLOBIN 9.3 G/DL (11.5-16.0); LYMPHOCYTES # (AUTO) 3.2 X 10^3 (1.0-4.0); LYMPHOCYTES % (AUTO) 38 % (12-44); MEAN CORPUSCULAR HEMOGLOBIN 28 PG (25-34); MEAN CORPUSCULAR HGB CONC 34 G/DL (32-36); MEAN CORPUSCULAR VOLUME 85 FL (80-99); MEAN PLATELET VOLUME 11.1 FL (7.4-10.4); MONOCYTES # (AUTO) 0.5 X 10^3 (0.0-1.0); MONOCYTES % (AUTO) 5 % (0-12); NEUTROPHILS # (AUTO) 4.6 X 10^3 (1.8-7.8); NEUTROPHILS % (AUTO) 55 % (42-75); PLATELET COUNT 197 10^3/uL (130-400); RED CELL DISTRIBUTION WIDTH 14.1 % (10.0-14.5); WHITE BLOOD COUNT 8.4 10^3/uL (4.3-11.0)
[2019-10-22 05:56] LABS: ALBUMIN 3.3 GM/DL (3.2-4.5); BILIRUBIN,TOTAL 0.2 MG/DL (0.1-1.0); CALCIUM 8.7 MG/DL (8.5-10.1); CREATININE SERUM 1.56 MG/DL (0.60-1.30); POTASSIUM 4.5 MMOL/L (3.6-5.0); TOTAL PROTEIN 6.3 GM/DL (6.4-8.2)
--- NOTE | 2019-10-22 08:36 | NUR ---
BLOOD SUGAR 356, DR CEE NOTIFIED AND ORDER GIVEN FOR SLIDING SCALE INSULIN
[2019-10-22] MEDS: ONDANSETRON 4 MG/2 ML (SDV) Z0FRAN IV PRN (08:40)
[2019-10-22] MEDS ORDERED: CATHETER FLUSH 10 ML SYR IV PRN (09:15)
[2019-10-22] MEDS ORDERED: CITA40TA11 PO (09:39)
[2019-10-22] MEDS ORDERED: AMLO10TA7 PO (09:39)
[2019-10-22] MEDS ORDERED: GBPN600T PO (09:39)
[2019-10-22] MEDS ORDERED: MTP100TCR PO (09:39)
[2019-10-22] MEDS: inSUlin ASPART (NovoLOG) 1 UNIT/0.01 ML (CHARGE PER UNIT) SC SCH ×5 (09:43→21:31)
[2019-10-22] MEDS ORDERED: LACT10SO33 PO (09:57)
[2019-10-22] MEDS ORDERED: INSU100I23 SQ (09:57)
[2019-10-22] MEDS ORDERED: INSU100I29 SQ (10:02)
[2019-10-22] MEDS ORDERED: FLUO20CA42 PO (10:02)
[2019-10-22] MEDS ORDERED: HYDR25TA4 PO (10:06)
--- NOTE | 2019-10-22 10:07 | NUR ---
SPOKE WITH THE PATIENT ABOUT HER MEDICATIONS. [facility] AND WENT OVER IT WITH THE PATIENT. 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 REPLACE CITALOPRAM) NEVER PICKED UP: TRESIBA 30 BID (DOES NOT USE) NEVER PICKED UP: AUGMENTIN 875-125 BID NEVER PICKED UP: HCTZ 25MG DAILY(STATES SHE HAS SOME & TAKES IT, NEVER FILLED@ PHARMACY) 10-15-19 CIPRO 250MG Q12H X 3 DAYS #6 (FINISHED) 09-20-19 AMLODIPINE 10MG DAILY #30 (PATIENT STATES SHE STOPPED TAKING THIS) 09-20-19 CITALOPRAM 40MG DAILY #30 (STATES THIS HAS BEEN CHANGED TO PROZAC) 09-14-19 METOPROLOL ER 100MG DAILY #30 09-14-19 GABAPENTIN 600MG 2 TID #180 09-14-19 LACTULOSE 10GM/15ML 15ML TID #240 (USES PRN ONLY) 08-16-19 BACTRIM DS BID X 10 DAYS #20 (FINISHED) 11-23-18 LEVEMIR FLEXTOUCH 30 BID (STATES SHE DOES NOT USE OFTEN, SHE DOESN'T GET AROUND TO IT) PATIENT RECEIVED HUMALOG THROUGH PALS 09-17-19 - SHE VERIFIED HOW SHE USES THIS. I SPOKE WITH A NURSE WHO STATES THE PATIENT IS SUPPOSED TO BE TAKING LIPITOR 20MG DAILY, SHE "THINKS" THE PATIENT RECEIVED IT THROUGH THE REPOSITORY IN [place]. PATIENT STATES SHE IS SUPPOSED TO BE TAKING IT BUT IT HAS BEEN AWHILE SINCE SHE GOT IT THROUGH REPOSITORY AND IS CURRENTLY OUT OF IT. I LEFT IT ON THE MED REC AND NOTED THIS. VENTOLIN IN ON THE MED REC FROM PREVIOUS ADMISSIONS, I LEFT IT ON NEEDED. OTC MEDICATION: TYLENOL PRN VITAMIN D HS VITAMIN C HS BLACK ELDERBERRY HS
--- NOTE | 2019-10-22 11:45 | NUR ---
BLOOD SUGAR 445, BP 170/97. DR CEE NOTIFIED. INSTRUCTED NURSE TO GIVE 30 UNITS INSULIN,
--- NOTE | 2019-10-22 11:49 | History & Physical ---
HPI History of Present Illness: Started feeling sick yesterday around 4 pm, nausea and vomiting and felt dehydrated. She states she was out of glucose testing strips for a few days prior to coming in and had not been taking insulin. Denies fever. Admits constipation. Source: patient Exam Limitations: clinical condition Date seen by provider: Oct 22, 2019 Time Seen by Provider: 11:44 Attending Physician Yudy Castillo MD PCP Dante Catherine MD Consult Date of Admission Oct 21, 2019 at 20:20 Home Medications Home Medications Reviewed patient Home Medication Reconciliation performed by pharmacy medication reconciliations front end technician and/or nursing. Patients Allergies have been reviewed. 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 C section x 4 Laparoscopy I&D Family Medical History Significant Family History: No Pertinent Family Hx Review of Systems (CHC) Constitutional: No fever EENTM: nose congestion (chronic) Respiratory: cough (states from lisinopril which she stopped 8 months ago), short of breath (when she doesn't take insulin right) Cardiovascular: chest pain (intermittent) Gastrointestinal: see HPI Genitourinary: No dysuria Musculoskeletal: joint pain Skin: No rash Reviewed Test Results Reviewed Test Results Lab Laboratory Tests Test 10/21/19 20:18 10/21/19 21:25 10/22/19 04:35 10/22/19 11:04 Range/Units White Blood Count 8.9 8.4 4.3-11.0 10^3/uL Red Blood Count 3.66 L 3.28 L 4.35-5.85 10^6/uL Hemoglobin 10.6 L 9.3 L 11.5-16.0 G/DL Hematocrit 30 L 28 L 35-52 % Mean Corpuscular Volume 83 85 80-99 FL Mean Corpuscular Hemoglobin 29 28 25-34 PG Mean Corpuscular Hemoglobin Concent 35 34 32-36 G/DL Red Cell Distribution Width 13.9 14.1 10.0-14.5 % Platelet Count 228 197 130-400 10^3/uL Mean Platelet Volume 10.6 H 11.1 H 7.4-10.4 FL Neutrophils (%) (Auto) 60 55 42-75 % Lymphocytes (%) (Auto) 32 38 12-44 % Monocytes (%) (Auto) 7 5 0-12 % Eosinophils (%) (Auto) 1 1 0-10 % Basophils (%) (Auto) 0 0 0-10 % Neutrophils # (Auto) 5.4 4.6 1.8-7.8 X 10^3 Lymphocytes # (Auto) 2.9 3.2 1.0-4.0 X 10^3 Monocytes # (Auto) 0.6 0.5 0.0-1.0 X 10^3 Eosinophils # (Auto) 0.1 0.1 0.0-0.3 10^3/uL Basophils # (Auto) 0.0 0.0 0.0-0.1 10^3/uL Sodium Level 137 135 135-145 MMOL/L Potassium Level 4.4 4.5 3.6-5.0 MMOL/L Chloride Level 100 103 98-107 MMOL/L Carbon Dioxide Level 23 21 21-32 MMOL/L Anion Gap 14 11 5-14 MMOL/L Blood Urea Nitrogen 35 H 35 H 7-18 MG/DL Creatinine 1.85 H 1.56 H 0.60-1.30 MG/DL Estimat Glomerular Filtration Rate 29 35 BUN/Creatinine Ratio 19 22 Glucose Level 219 H 356 H 70-105 MG/DL Calcium Level 9.5 8.7 8.5-10.1 MG/DL Corrected Calcium 9.5 9.3 8.5-10.1 MG/DL Total Bilirubin 0.3 0.2 0.1-1.0 MG/DL Aspartate Amino Transf (AST/SGOT) 8 8 5-34 U/L Alanine Aminotransferase (ALT/SGPT) 9 8 0-55 U/L Alkaline Phosphatase 38 L 32 L 40-136 U/L Total Protein 7.4 6.3 L 6.4-8.2 GM/DL Albumin 4.0 3.3 3.2-4.5 GM/DL Amylase Level 34 25-125 U/L Lipase 18 8-78 U/L Urine Color YELLOW Urine Clarity CLEAR Urine pH 5.0 5-9 Urine Specific [place] >=1.030 1.016-1.022 Urine Protein 3+ H NEGATIVE Urine Glucose (UA) 3+ H NEGATIVE Urine Ketones NEGATIVE NEGATIVE Urine Nitrite NEGATIVE NEGATIVE Urine Bilirubin NEGATIVE NEGATIVE Urine Urobilinogen 0.2 < = 1.0 MG/DL Urine Leukocyte Esterase TRACE NEGATIVE Urine RBC (Auto) 1+ H NEGATIVE Urine RBC 2-5 H /HPF Urine WBC 0-2 /HPF Urine Squamous Epithelial Cells 5-10 /HPF Urine Crystals PRESENT H /LPF Urine Amorphous Sediment MOD SUDHIR URATES H /LPF Urine Bacteria TRACE /HPF Urine Casts NONE /LPF Urine Mucus NEGATIVE /LPF Urine Trichomonas FEW H /HPF Urine Culture Indicated YES Glucometer 445 *H 70-110 MG/DL Radiology CXR 10/21 normal Physical Exam-(CHC) Physical Exam Vital Signs VS - Last 72 Hours, by Label 10/21/19 10/21/19 10/21/19 10/21/19 20:13 23:00 23:14 23:30 Temp 36.7 36.7 36.6 Pulse 88 78 81 Resp 20 20 18 B/P (MAP) 123/86 (98) 134/84 (98) 169/92 (117) Pulse Ox 99 99 98 O2 Delivery Room Air Room Air 10/22/19 10/22/19 10/22/19 10/22/19 00:11 03:10 08:00 08:00 Temp 36.6 36.5 36.3 Pulse 81 93 79 Resp 18 20 20 B/P (MAP) 169/92 176/99 (124) 170/93 (118) Pulse Ox 98 96 97 96 O2 Delivery Room Air Room Air Room Air Room Air Capillary Refill : Less Than 3 Seconds General Appearance: mild distress (appears to be in pain) Respiratory: No accessory muscle use Gastrointestinal: normal bowel sounds, soft, tenderness Extremities: no pedal edema Neurologic/Psychiatric: alert, other (irritable, appears tired) Skin: normal color, warm/dry Assessment/Plan Assessment/Plan Admission Status: Observation (1) Diabetes mellitus, type 2 Status: Chronic Assessment & Plan: Resume home insulin, had not been using regularly. Sliding scale insulin, diabetic diet. Last A1c in clinic in July was 13. Qualifiers: Qualified Codes: E11.65 - Type 2 diabetes mellitus with hyperglycemia; Z79.4 - longterm (current) use of insulin (2) Renal insufficiency Status: Acute Assessment & Plan: Acute on chronic renal insufficiency secondary to dehydration from nausea and vomiting. Continue IVF. (3) Hypertension Status: Chronic Assessment & Plan: Resume home meds Qualifiers: Qualified Codes: I10 - Essential (primary) hypertension (4) Anemia Status: Chronic Assessment & Plan: Suspect anemia of chronic disease. Iron studies 08/2019 normal. Qualifiers: Qualified Codes: N18.3 - Chronic kidney disease, stage 3 (moderate); D63.1 - Anemia in chronic kidney disease (5) Nausea & vomiting Status: Acute Assessment & Plan: Supportive treatment, anti-emetics and IVF. (6) Trichomonal infection Status: Acute Assessment & Plan: Flagyl, will do BID instead of one time large dose given her nausea and vomiting (7) DVT prophylaxis Status: Acute Assessment & Plan: Enoxaparin Clinical Quality Measures DVT/VTE Risk/Contraindication: Risk Factor Score Per Nursin RFS Level Per Nursing on Admit: 2=Moderate YUDY CASTILLO MD Oct 22, 2019 11:48
[2019-10-22] MEDS ORDERED: NON-FORMULARY MEDICATION 1 EA EA (Lactulose 15 ML) PO PRN (12:00)
[2019-10-22] MEDS ORDERED: RT-ALBUTEROL SULF 2.5 MG/3 ML PRE-MIX VIAL IH PRN (12:00)
[2019-10-22] MEDS ORDERED: NON-FORMULARY MEDICATION 1 EA EA (Insulin Detemir (Levemir Flextouch) 30 UNIT) SQ PRN (12:00)
[2019-10-22] MEDS ORDERED: NON-FORMULARY MEDICATION 1 EA EA (Insulin Detemir (Levemir Flextouch) 30 UNIT) SQ SCH (12:00)
--- NOTE | 2019-10-22 12:30 | NUR ---
RD ASSESSMENT PMHx: HTN; DM; GERD PT INTERACTION: Pt was semi-awake and pleasant during nutrition assessment. Pt states current appetite is poor but it had just been that way today. Note PO intake of 50% x1meal, per chart review. Pt states following a regular diet at home and has no issues with chewing/swallowing food. Pt states recent episodes of n/v at this time. Pt states recent issues with constipation, and that her last BM was 10/19. Note pt not currently on bowel regimen, per chart review. Pt states wt fluctuates, but that her UBW is around 225#. Note recent 13# wt loss x3w, per chart review. Pt states current DM management is "pretty good," and her avg blood glucose is between 248-250. Note recent HbA1c of 9.2 taken on 10/15/19, per chart review. ABNORMAL NUTRITION-RELATED LAB VALUES LOW: alkphos 32; Pro 6.3 HIGH: BUN 35; cr 1.56; glu 356; HbA1c 9.2 (taken 10/15/19) Est. kcal needs: 5201-9216 kcal | 15-18 kcal/kg) Est. Pro needs: 82-103 g Pro | 0.8-1.0 g Pro/kg PES STATEMENT: Inadequate oral intake (NI-2.1) related to loss of appetite | nausea | vomiting | constipation as evidenced by pt interview | PO intake 50% x1meal INTERVENTION: Continue with current diet order of Regular diet. Pt may benefit from consistent CHO diet, if blood glucose levels remain elevated. Offered DM education on CHO counting. Pt declined at this time. Will attempt to offer again prior to discharge. Pt may benefit from nutrition supplementation if PO intake declines. Will continue to follow and reassess as pt needs and status change. MONITOR/EVALUATE: PO Intake; Plan of Care; Hydration Status; Weight Status; Lab Values Veronica Mariee, MS, RD, LD
[2019-10-22] MEDS ORDERED: LACTULOSE SYRUP 10GM/15ML (ENULOSE) 30ML UDC PO PRN (12:45)
[2019-10-22] MEDS: metroNIDAZOLE 500 MG (FLAGYL) TAB PO SCH ×2 (12:52→21:30)
[2019-10-22] MEDS: GABAPENTIN 600 MG (NEURONTIN) TAB PO SCH ×2 (12:52→21:30)
[2019-10-22] MEDS: ENOXAPARIN 40 MG/0.4 ML (LOVENOX) SYR SQ SCH (12:52)
--- NOTE | 2019-10-22 12:53 | NUR ---
LACTULOSE GIVEN FOR C/O CONSTIPATION
[2019-10-22] MEDS ORDERED: meTOprolol SUCCINATE 100 MG (TOPROL XL) TAB PO ONE (12:58)
[2019-10-22] MEDS: meTOprolol SUCCINATE 100 MG (TOPROL XL) TAB PO SCH (13:04)
[2019-10-22] MEDS ORDERED: INSULIN LISPRO 30 UNIT SQ SCH (16:00)
--- NOTE | 2019-10-22 16:00 | NUR ---
BLOOD SUGAR 50, SNACK GIVEN, REPEAT BLOOD SUGAR 137, DR CEE NOTIFIED AND ORDER GIVEN TO GIVE 15 UNITS WITH EVENING MEAL
[2019-10-22] MEDS ORDERED: NON-FORMULARY MEDICATION 1 EA EA (Cholecalciferol (Vitamin D3) (Vitamin D3) 2,000 UNIT) PO SCH (21:00)
[2019-10-22] MEDS: VITAMIN D3 1,000 UNITS (CHOLECALCIFEROL) TABLET PO SCH (21:30)
[2019-10-23] VITALS (7 sets, daily range): BP systolic 138–193; BP diastolic 73–89
[2019-10-23 05:27] LABS: HEMOGLOBIN 9.8 G/DL (11.5-16.0); MEAN PLATELET VOLUME 11.5 FL (7.4-10.4); RED CELL DISTRIBUTION WIDTH 13.9 % (10.0-14.5); WHITE BLOOD COUNT 7.1 10^3/uL (4.3-11.0)
[2019-10-23 05:58] LABS: CALCIUM 8.7 MG/DL (8.5-10.1); CREATININE SERUM 1.31 MG/DL (0.60-1.30); POTASSIUM 4.8 MMOL/L (3.6-5.0)
[2019-10-23] MEDS: metroNIDAZOLE 500 MG (FLAGYL) TAB PO SCH ×2 (08:04→21:14)
[2019-10-23] MEDS: FLUoxetine HCL 20 MG (PROzac) CAP PO SCH (08:05)
[2019-10-23] MEDS: inSUlin ASPART (NovoLOG) 1 UNIT/0.01 ML (CHARGE PER UNIT) SC SCH ×6 (08:05→21:25)
[2019-10-23] MEDS: meTOprolol SUCCINATE 100 MG (TOPROL XL) TAB PO SCH (08:05)
[2019-10-23] MEDS: NS IV 1000 ML 1,000 ML IV SCH ×2 (08:07→18:02)
[2019-10-23] MEDS: GABAPENTIN 600 MG (NEURONTIN) TAB PO SCH ×3 (08:14→21:14)
[2019-10-23] MEDS: ACETAMINOPHEN 500 MG TAB (TYLENOL) PO PRN (08:15)
[2019-10-23] MEDS ORDERED: HYDROCHLOROTHIAZIDE 25 MG (HCTZ) TAB PO SCH (09:00)
--- NOTE | 2019-10-23 11:00 | NUR ---
HOLDING INSULIN TILL DR. KHAN REVIEWS MEDICATION
--- NOTE | 2019-10-23 11:36 | NUR ---
CONTACTED DR. KHAN, PT'S SYSTOLIC BLOOD PRESSURE 193. AWAITING ORDERS
--- NOTE | 2019-10-23 11:38 | NUR ---
PT'S BLOOD SUGAR @ 59. GIVEN JUICE AND CRACKERS. WILL RECHECK IN 15 MINUTES
--- NOTE | 2019-10-23 11:45 | NUR ---
PATIENTS BLOOD GLUCOSE RECHECK WAS 103.
--- NOTE | 2019-10-23 11:55 | NUR ---
PATIENTS RECHECK SBP WAS 173. DR. KHAN WAS CONTACTED STILL AWAITING ORDERS.
[2019-10-23] MEDS: hydrALAZINE (APRESOLINE) 25 MG TAB PO SCH ×2 (13:04→18:00)
--- NOTE | 2019-10-23 13:04 | Progress Note - Hospitalist ---
Subjective HPI/CC On Admission Date Seen by Provider: Oct 23, 2019 Time Seen by Provider: 11:30 Subjective/Events-last exam Patient feeling a lot better Have low sugar this morning so decrease the amount of insulin Elevated blood pressure will require hydralazine 25 MG every 6 hours Prozac was restarted No pain is reported Large bowel movement this morning Review of Systems General: Fatigue Musculoskeletal: leg pain Objective Exam Vital Signs Vital Signs Date Time Temp Pulse Resp B/P (MAP) Pulse Ox O2 Delivery O2 Flow Rate FiO2 10/23/19 11:47 173/84 (113) 10/23/19 11:21 36.8 82 20 98 Room Air Capillary Refill : Less Than 3 SecondsLess Than 3 Seconds General Appearance: No Apparent Distress, WD/WN, Chronically ill Respiratory: Chest Non Tender, Lungs Clear, Normal Breath Sounds, No Accessory Muscle Use, No Respiratory Distress Cardiovascular: Regular Rate, Rhythm, No Edema, No Gallop, No JVD, No Murmur, Normal Peripheral Pulses Neurologic/Psychiatric: Alert, Oriented x3, No Motor/Sensory Deficits, Normal Mood/Affect Skin: Normal Color, Warm/Dry Results/Procedures Lab Laboratory Tests 10/23/19 04:44 Patient resulted labs reviewed. Assessment/Plan Assessment and Plan Assess & Plan/Chief Complaint Assessment: Acute renal failure Diabetes mellitus out of control History of illicit drug use History of diabetic foot ulcer Nausea and vomiting Hypertension [id number] Hypoglycemia Depression Plan: Monitor labs IV fluids Decrease insulin Hydralazine Diagnosis/Problems Diagnosis/Problems (1) Acute renal failure (ARF) Status: Resolved (2) Trichomonal infection Status: Acute (3) Diabetic neuropathy (4) Nausea & vomiting Status: Acute (5) Anxiety (6) Depression (7) Anemia Status: Chronic Qualifiers: Anemia type: due to chronic kidney disease Chronic kidney disease stage: stage 3 (moderate) Qualified Codes: N18.3 - Chronic kidney disease, stage 3 (moderate); D63.1 - Anemia in chronic kidney disease (8) Hypertension Status: Chronic Qualifiers: Hypertension type: essential hypertension Qualified Codes: I10 - Essential (primary) hypertension Clinical Quality Measures DVT/VTE Risk/Contraindication: Risk Factor Score Per Nursin RFS Level Per Nursing on Admit: 2=Moderate DANNY KHAN DO Oct 23, 2019 13:04
[2019-10-23] MEDS: ENOXAPARIN 40 MG/0.4 ML (LOVENOX) SYR SQ SCH (13:05)
[2019-10-23] MEDS: VITAMIN D3 1,000 UNITS (CHOLECALCIFEROL) TABLET PO SCH (21:14)
[2019-10-24] VITALS (8 sets, daily range): BP systolic 111–188; BP diastolic 58–100
[2019-10-24] MEDS: ACETAMINOPHEN 500 MG TAB (TYLENOL) PO PRN (00:10)
[2019-10-24] MEDS: hydrALAZINE (APRESOLINE) 25 MG TAB PO SCH ×5 (00:10→23:43)
--- NOTE | 2019-10-24 00:50 | NUR ---
PT REPORTS PAIN AT AN 8, PRN TYLENOL WAS ADMIN AND PER PT DID NOT HELP HER PAIN. DR KHAN NOTIFIED AND ORDERED PERCOCET 5/325 Q6H PRN PAIN. PT NOTIFIED AND VERY PLEASED. E PHARMACY CONTACTED TO VERIFY MEDICATION.
[2019-10-24] MEDS: oxyCODONE/APAP 5/325MG (PERCOCET 5) TABLET PO PRN ×3 (01:07→21:04)
[2019-10-24] MEDS: NS IV 1000 ML 1,000 ML IV SCH (02:31)
[2019-10-24 05:23] LABS: BASOPHILS % (AUTO) 0 % (0-10); EOSINOPHILS # (AUTO) 0.1 10^3/uL (0.0-0.3); EOSINOPHILS % (AUTO) 1 % (0-10); HEMATOCRIT 28 % (35-52); HEMOGLOBIN 9.5 G/DL (11.5-16.0); LYMPHOCYTES # (AUTO) 3.5 X 10^3 (1.0-4.0); LYMPHOCYTES % (AUTO) 48 % (12-44); MEAN CORPUSCULAR HEMOGLOBIN 29 PG (25-34); MEAN CORPUSCULAR HGB CONC 34 G/DL (32-36); MEAN CORPUSCULAR VOLUME 87 FL (80-99); MEAN PLATELET VOLUME 11.2 FL (7.4-10.4); MONOCYTES # (AUTO) 0.5 X 10^3 (0.0-1.0); MONOCYTES % (AUTO) 7 % (0-12); NEUTROPHILS # (AUTO) 3.2 X 10^3 (1.8-7.8); NEUTROPHILS % (AUTO) 44 % (42-75); PLATELET COUNT 184 10^3/uL (130-400); RED CELL DISTRIBUTION WIDTH 14.1 % (10.0-14.5); WHITE BLOOD COUNT 7.3 10^3/uL (4.3-11.0)
[2019-10-24 05:46] LABS: ALBUMIN 3.2 GM/DL (3.2-4.5); BILIRUBIN,TOTAL 0.2 MG/DL (0.1-1.0); CALCIUM 8.6 MG/DL (8.5-10.1); CREATININE SERUM 1.34 MG/DL (0.60-1.30); POTASSIUM 4.7 MMOL/L (3.6-5.0)
[2019-10-24] MEDS: inSUlin ASPART (NovoLOG) 1 UNIT/0.01 ML (CHARGE PER UNIT) SC SCH ×7 (06:22→21:08)
[2019-10-24] MEDS: FLUoxetine HCL 20 MG (PROzac) CAP PO SCH (08:59)
[2019-10-24] MEDS: metroNIDAZOLE 500 MG (FLAGYL) TAB PO SCH ×2 (08:59→21:04)
[2019-10-24] MEDS: GABAPENTIN 600 MG (NEURONTIN) TAB PO SCH ×3 (09:00→21:04)
[2019-10-24] MEDS: meTOprolol SUCCINATE 100 MG (TOPROL XL) TAB PO SCH (09:00)
--- NOTE | 2019-10-24 12:00 | Progress Note - Hospitalist ---
Subjective HPI/CC On Admission Date Seen by Provider: Oct 24, 2019 Time Seen by Provider: 11:00 Subjective/Events-last exam Patient doing better BM every day since she really doesn't take the Lactulose at home daily so she will start doing that at home at DC Pain is improved Weakness noted Creatinine 1.3 Sugars improved without hypoglycemia HTN is very labile and high so added multiple meds Lasix 20mg IV given and HLIVF which will help BP Review of Systems General: Fatigue Objective Exam Vital Signs Vital Signs Date Time Temp Pulse Resp B/P (MAP) Pulse Ox O2 Delivery O2 Flow Rate FiO2 10/24/19 13:10 164/89 (114) 10/24/19 12:45 36.3 76 20 98 Room Air Capillary Refill : Less Than 3 SecondsLess Than 3 Seconds General Appearance: No Apparent Distress, WD/WN, Chronically ill Respiratory: Chest Non Tender, Lungs Clear, Normal Breath Sounds, No Accessory Muscle Use, No Respiratory Distress Cardiovascular: Regular Rate, Rhythm, No Edema, No Gallop, No JVD, No Murmur, Normal Peripheral Pulses Neurologic/Psychiatric: Alert, Oriented x3, No Motor/Sensory Deficits, Normal Mood/Affect Results/Procedures Lab Laboratory Tests 10/24/19 05:01 Patient resulted labs reviewed. Assessment/Plan Assessment and Plan Assess & Plan/Chief Complaint Assessment: Acute renal failure Diabetes mellitus out of control History of illicit drug use History of diabetic foot ulcer Nausea and vomiting Hypertension [id number] Hypoglycemia Depression Plan: Monitor labs IV fluids heplocked One dose of Lasix to help overload to help BP Decrease insulin is helpful Hydralazine along with Clonidine and added Cardura at night Diagnosis/Problems Diagnosis/Problems (1) Acute renal failure (ARF) Status: Resolved (2) Trichomonal infection Status: Acute (3) Diabetic neuropathy (4) Nausea & vomiting Status: Acute (5) Anxiety (6) Depression (7) Anemia Status: Chronic Qualifiers: Anemia type: due to chronic kidney disease Chronic kidney disease stage: stage 3 (moderate) Qualified Codes: N18.3 - Chronic kidney disease, stage 3 (moderate); D63.1 - Anemia in chronic kidney disease (8) Hypertension Status: Chronic Qualifiers: Hypertension type: essential hypertension Qualified Codes: I10 - Essential (primary) hypertension Clinical Quality Measures DVT/VTE Risk/Contraindication: Risk Factor Score Per Nursin RFS Level Per Nursing on Admit: 2=Moderate DANNY KHAN DO Oct 24, 2019 11:59
[2019-10-24] MEDS: ENOXAPARIN 40 MG/0.4 ML (LOVENOX) SYR SQ SCH (12:08)
--- NOTE | 2019-10-24 12:40 | NUR ---
Pt's BP was 188/100 manually. This RN contacted Dr. Saldaña. Dr. Saldaña responded with 1 time dose of Lasix, PRN clonidine for SBP>170, and to heplock IV fluids. 1250: This RN administered the dose of Lasix IV. 1310: BP was rechecked. Pt's BP was 164/89. This RN did not administer clonidine at this time due to BP reading.
[2019-10-24] MEDS ORDERED: FUROSEMIDE 40 MG/4 ML INJ (LASIX) IVP ONE (12:45)
[2019-10-24] MEDS ORDERED: cloNIDine 0.1 MG (CATAPRES) TAB PO PRN (12:45)
--- NOTE | 2019-10-24 20:01 | NUR ---
BP TAKEN MANUALLY ON LEFT ARM, READING 192/102. PRN CLONIDINE ADMIN.
[2019-10-24] MEDS ORDERED: doxAzosin 4 MG (CARDURA) TAB PO SCH (21:00)
[2019-10-24] MEDS: VITAMIN D3 1,000 UNITS (CHOLECALCIFEROL) TABLET PO SCH (21:04)
[2019-10-25] MEDS: ONDANSETRON 4 MG/2 ML (SDV) Z0FRAN IV PRN (01:31)
[2019-10-25 04:00] VITALS: BP 120/73
[2019-10-25] MEDS: hydrALAZINE (APRESOLINE) 25 MG TAB PO SCH (06:08)
[2019-10-25 06:20] LABS: BASOPHILS % (AUTO) 0 % (0-10); EOSINOPHILS # (AUTO) 0.1 10^3/uL (0.0-0.3); EOSINOPHILS % (AUTO) 1 % (0-10); HEMATOCRIT 27 % (35-52); HEMOGLOBIN 8.9 G/DL (11.5-16.0); LYMPHOCYTES # (AUTO) 2.8 X 10^3 (1.0-4.0); LYMPHOCYTES % (AUTO) 45 % (12-44); MEAN CORPUSCULAR HEMOGLOBIN 29 PG (25-34); MEAN CORPUSCULAR HGB CONC 33 G/DL (32-36); MEAN CORPUSCULAR VOLUME 88 FL (80-99); MEAN PLATELET VOLUME 11.4 FL (7.4-10.4); MONOCYTES # (AUTO) 0.4 X 10^3 (0.0-1.0); MONOCYTES % (AUTO) 7 % (0-12); NEUTROPHILS # (AUTO) 2.9 X 10^3 (1.8-7.8); NEUTROPHILS % (AUTO) 46 % (42-75); PLATELET COUNT 159 10^3/uL (130-400); RED CELL DISTRIBUTION WIDTH 13.8 % (10.0-14.5); WHITE BLOOD COUNT 6.2 10^3/uL (4.3-11.0)
[2019-10-25 06:44] LABS: ALBUMIN 3.1 GM/DL (3.2-4.5); BILIRUBIN,TOTAL 0.2 MG/DL (0.1-1.0); CALCIUM 8.5 MG/DL (8.5-10.1); CREATININE SERUM 1.68 MG/DL (0.60-1.30); POTASSIUM 5.2 MMOL/L (3.6-5.0); TOTAL PROTEIN 5.9 GM/DL (6.4-8.2)
[2019-10-25] MEDS: inSUlin ASPART (NovoLOG) 1 UNIT/0.01 ML (CHARGE PER UNIT) SC SCH ×4 (07:25→11:44)
[2019-10-25 08:00] VITALS: BP 138/77
[2019-10-25] MEDS: GABAPENTIN 600 MG (NEURONTIN) TAB PO SCH (08:19)
[2019-10-25] MEDS: meTOprolol SUCCINATE 100 MG (TOPROL XL) TAB PO SCH (08:19)
[2019-10-25] MEDS: FLUoxetine HCL 20 MG (PROzac) CAP PO SCH (08:19)
[2019-10-25] MEDS: metroNIDAZOLE 500 MG (FLAGYL) TAB PO SCH (08:19)
[2019-10-25] MEDS ORDERED: HYDR-3923 PO (10:28)
[2019-10-25] MEDS ORDERED: METR-145 PO (10:28)
[2019-10-25] MEDS ORDERED: DOXA4TAB2 PO (10:28)
--- NOTE | 2019-10-25 10:29 | Discharge Summary ---
Discharge Summary Hospital Course Was the Problem List Reviewed?: Yes Problems/Dx: (1) Acute renal failure (ARF) Status: Resolved (2) Trichomonal infection Status: Acute (3) Diabetic neuropathy (4) Nausea & vomiting Status: Acute (5) Anxiety (6) Depression (7) Anemia Status: Chronic Qualifiers: Qualified Codes: N18.3 - Chronic kidney disease, stage 3 (moderate); D63.1 - Anemia in chronic kidney disease (8) Hypertension Status: Chronic Qualifiers: Qualified Codes: I10 - Essential (primary) hypertension Hospital Course Date of Admission: Oct 21, 2019 at 20:20 Admission Diagnosis : Family Physician/Provider: Dante Catherine MD Date of Discharge: 10/25/19 Discharge Diagnosis: ARF, Trichomonas infection, N/V, DM, HTN OOC Hospital Course: Hospital Course: Pt had an uneventful hospital course for 5 days after admitted for acute renal failure, nausea and vomiting. Creatinine did improve from 1.8 to baseline 1.6 to 1.4 and she had no issues except for out of control HTN so considering her allergy to Norvasc she was placed on Hydralazine 25mg TID along with Cardura 4mg at night which helped the BP immensely. She will have close follow up with [facility] and they will help her provide for the increased cost of her medication which she is worried about. Labs and Pending Lab Test: Laboratory Tests 10/24/19 11:33: Glucometer 189H 10/24/19 16:20: Glucometer 233H 10/24/19 21:04: Glucometer 187H 10/25/19 05:49: Glucometer 250H 10/25/19 05:50: White Blood Count 6.2, Red Blood Count 3.08L, Hemoglobin 8.9L, Hematocrit 27L, Mean Corpuscular Volume 88, Mean Corpuscular Hemoglobin 29, Mean Corpuscular Hemoglobin Concent 33, Red Cell Distribution Width 13.8, Platelet Count 159, Mean Platelet Volume 11.4H, Neutrophils (%) (Auto) 46, Lymphocytes (%) (Auto) 45H, Monocytes (%) (Auto) 7, Eosinophils (%) (Auto) 1, Basophils (%) (Auto) 0, Neutrophils # (Auto) 2.9, Lymphocytes # (Auto) 2.8, Monocytes # (Auto) 0.4, Eosinophils # (Auto) 0.1, Basophils # (Auto) 0.0, Sodium Level 135, Potassium Level 5.2H, Chloride Level 103, Carbon Dioxide Level 23, Anion Gap 9, Blood Urea Nitrogen 35H, Creatinine 1.68H, Estimat Glomerular Filtration Rate 32, BUN/Creatinine Ratio 21, Glucose Level 231H, Calcium Level 8.5, Corrected Calcium 9.2, Total Bilirubin 0.2, Aspartate Amino Transf (AST/SGOT) 10, Alanine Aminotransferase (ALT/SGPT) 10, Alkaline Phosphatase 28L, Total Protein 5.9L, Albumin 3.1L Microbiology 10/21/19 Urine Culture - Final, Complete 3 or more isolates Home Meds Active Doxazosin Mesylate 4 Mg Tablet 4 Mg PO HS Metronidazole 500 Mg Tablet 500 Mg PO BID Hydralazine HCl 25 Mg Tablet 25 Mg PO TID Reported Hydrochlorothiazide 25 Mg Tablet 25 Mg PO DAILY HAS NOT PICKED UP YET BUT STATES SHE HAS SOME AT HOME, NEVER FILLED AT [facility] Levemir Flextouch (Insulin Detemir) 100 Unit/1 Ml Insuln.pen 30 Unit SQ BID PRN LAST FILLED 11-23-18 - ADMITS SHE DOES NOT USE REGULARLY Prozac (Fluoxetine HCl) 20 Mg Capsule 20 Mg PO DAILY HAS NOT STARTED YET, THIS IS TO REPLACE CITALOPRAM Lactulose 10 Gm/15 Ml Solution 15 Ml PO TID PRN Humalog Kwikpen (Insulin Lispro) 100 Unit/1 Ml Insuln.pen 30 Unit SQ TIDAC Gabapentin 600 Mg Tablet 1,200 Mg PO TID TAKES 2 (600MG) TABLETS Metoprolol Succinate 100 Mg Tab.er.24h 100 Mg PO DAILY Vitamin D3 (Cholecalciferol (Vitamin D3)) 1,000 Unit Capsule 2,000 Unit PO HS Vitamin C (Ascorbate Calcium) 500 Mg Tablet 500 Mg PO HS Black Elderberry 575 mg Cap (Elderberry Fruit and Flower) 1 Each Capsule 1 Cap PO HS Ventolin Hfa (Albuterol Sulfate) 1 Puff Puff 2 Puff IH Q6H PRN 1 PUFF = 90 MCG Lipitor (Atorvastatin Calcium) 20 Mg Tablet 20 Mg PO HS MAY HAVE RECEIVED FROM REPOSITORY IN JULY BUT PATIENT STATES SHE HAS BEEN OUT FOR AWHILE Tylenol Extra Strength (Acetaminophen) 500 Mg Tablet 500-1,000 Mg PO Q6H PRN Assessment/Pt Instructions [facility] this week Discharge Planning: <30 minutes discharge planning Discharge Instructions Discharge Diet: ADA Diet Discharge Physical Examination Vital Signs Vital Signs Date Time Temp Pulse Resp B/P (MAP) Pulse Ox O2 Delivery O2 Flow Rate FiO2 10/25/19 08:00 36.0 70 16 138/77 (97) 99 Room Air General Appearance: No Apparent Distress, WD/WN, Chronically ill Respiratory: Chest Non Tender, Lungs Clear, Normal Breath Sounds, No Accessory Muscle Use, No Respiratory Distress Cardiovascular: Regular Rate, Rhythm, No Edema, No Gallop, No JVD, No Murmur, Normal Peripheral Pulses Neurologic/Psychiatric: Alert, Oriented x3, No Motor/Sensory Deficits, Normal Mood/Affect Allergies: Coded Allergies: amlodipine (Verified Allergy, Unknown, 10/25/19) clarithromycin (Verified Allergy, Unknown, 10/21/19) hydrocodone (Verified Allergy, Unknown, 10/21/19) Discharge Summary Date of Admission Oct 21, 2019 at 20:20 Date of Discharge Discharge Date: Oct 25, 2019 Discharge Diagnosis Assessment: Acute renal failure Diabetes mellitus out of control History of illicit drug use History of diabetic foot ulcer Nausea and vomiting Hypertension [id number] Hypoglycemia Depression Plan: Monitor labs IV fluids heplocked One dose of Lasix to help overload to help BP Decrease insulin is helpful Hydralazine along with Clonidine and added Cardura at night (1) Acute renal failure (ARF) Status: Resolved (2) Trichomonal infection Status: Acute (3) Diabetic neuropathy (4) Nausea & vomiting Status: Acute (5) Anxiety (6) Depression (7) Anemia Status: Chronic Qualifiers: Qualified Codes: N18.3 - Chronic kidney disease, stage 3 (moderate); D63.1 - Anemia in chronic kidney disease (8) Hypertension Status: Chronic Qualifiers: Qualified Codes: I10 - Essential (primary) hypertension Clinical Quality Measures DVT/VTE Risk/Contraindication: Risk Factor Score Per Nursin RFS Level Per Nursing on Admit: 2=Moderate DANNY KHAN DO Oct 25, 2019 10:29
[2019-10-25 12:00] VITALS: BP 111/60
[2019-10-25 14:28] VITALS: BP 111/60
--- NOTE | 2019-10-25 15:26 | NUR ---
CM/SS: Visited with pt as to her plan for discharge Plan: Pt will return home on today with follow up to be done at [facility] Summary: Pt will return home today. Her medications will be called in to [facility] through [facility]. Pt has reported that she will have a ride as her neighbor will be able to pick her up. She is encouraged to follow up with [facility] with her physician, medication and mental health. She verbalizes understanding.
== END 2019-10-25 14:28 | disposition home or self-care (01) ==
LOC: EDUNIT# 20:12 → ER 20:14 → 4TH 20:20
PROVIDERS: ADMIT Family Medicine; ATTEND Internal Medicine
DX: N17.9 Acute kidney failure, unspecified (principal); E11.40 Type 2 diabetes mellitus with diabetic neuropathy, unspecified; R11.2 Nausea with vomiting, unspecified; F41.9 Anxiety disorder, unspecified; F32.9 Major depressive disorder, single episode, unspecified; N18.3 Chronic kidney disease, stage 3 (moderate); D63.1 Anemia in chronic kidney disease; I12.9 Hypertensive chronic kidney disease with stage 1 through stage 4 chronic kidney disease, or unspecified chronic kidney disease; E11.65 Type 2 diabetes mellitus with hyperglycemia; K59.00 Constipation, unspecified; J45.909 Unspecified asthma, uncomplicated; M79.7 Fibromyalgia; Z89.422 Acquired absence of other left toe(s); Z89.412 Acquired absence of left great toe; K21.9 Gastro-esophageal reflux disease without esophagitis; E11.319 Type 2 diabetes mellitus with unspecified diabetic retinopathy without macular edema; H35.30 Unspecified macular degeneration; Z79.4 Long term (current) use of insulin
CPT/HCPCS: 36415; 71045; 80048; 80053; 81000; 82150; 82962; 83690; 85025; 85027; 87088

== ENCOUNTER → 2019-10-27 | Outpatient (CLI) | payer OTHER ==
[~2019-10-27] MED LIST changes: +DOXA4TAB2 PO; +FLUO20CA42 PO; +HYDR-3923 PO; +LACT10SO33 PO; +METR-145 PO
== END ==
LOC: WOUNDCARE 10:44
PROVIDERS: ATTEND Orthopaedic Surgery Hand Surgery
DX: E11.621 Type 2 diabetes mellitus with foot ulcer (principal); E11.42 Type 2 diabetes mellitus with diabetic polyneuropathy; E11.65 Type 2 diabetes mellitus with hyperglycemia; L97.522 Non-pressure chronic ulcer of other part of left foot with fat layer exposed
CPT/HCPCS: 11042

== ENCOUNTER 2019-10-29 21:21 | Inpatient (IN) | payer OTHER ==
[~2019-10-29] VITALS: Ht 162.6 cm; Wt 100.0 kg
[2019-10-29] MEDS ORDERED: LACTATED RINGERS 1,000 ML IV ONE ×2 (21:33→21:36)
[2019-10-29] MEDS ORDERED: PROMETHAZINE INJ 25 MG/ML (PHENERGAN) AMP IVP STA (21:33)
[2019-10-29] MEDS ORDERED: ACETAMINOPHEN 500 MG TAB (TYLENOL) PO PRN (21:45)
[2019-10-29 21:58] LABS: BASOPHILS % (AUTO) 0 % (0-10); EOSINOPHILS # (AUTO) 0.1 10^3/uL (0.0-0.3); EOSINOPHILS % (AUTO) 1 % (0-10); HEMATOCRIT 31 % (35-52); HEMOGLOBIN 10.5 G/DL (11.5-16.0); LYMPHOCYTES # (AUTO) 2.2 X 10^3 (1.0-4.0); LYMPHOCYTES % (AUTO) 25 % (12-44); MEAN CORPUSCULAR HEMOGLOBIN 29 PG (25-34); MEAN CORPUSCULAR HGB CONC 34 G/DL (32-36); MEAN CORPUSCULAR VOLUME 87 FL (80-99); MEAN PLATELET VOLUME 11.6 FL (7.4-10.4); MONOCYTES # (AUTO) 0.8 X 10^3 (0.0-1.0); MONOCYTES % (AUTO) 9 % (0-12); NEUTROPHILS % (AUTO) 65 % (42-75); PLATELET COUNT 193 10^3/uL (130-400); RED CELL DISTRIBUTION WIDTH 13.8 % (10.0-14.5); WHITE BLOOD COUNT 9.2 10^3/uL (4.3-11.0)
--- NOTE | 2019-10-29 22:11 | ED General ---
General Stated Complaint: STOMACH PAIN Source of Information: Patient Exam Limitations: No Limitations History of Present Illness Date Seen by Provider: Oct 29, 2019 Time Seen by Provider: 21:27 Initial Comments Here with body aches, runny nose, ear fullness, fever and is gagging with dry heaves. States that she is having a bad gag reflex and is persistently gagging. He is a known diabetic and she states that she is a brittle diabetic. She has no idea what her blood sugar is as she is out of her test strips. She didn't take full dose of her insulin tonight because she did not want to get hypoglycemic. Arrives with a temperature of 39.2 Celsius but states that she does not have the flu. Has had previous admission for persistent vomiting and abdominal pain as well as hyperglycemia. Follows with [facility]. Fever onset today. Timing/Duration: 2-3 Days, Getting Worse Modifying Factors: worse with Eating Associated Systoms: Cough, Fever/Chills, Nausea/Vomiting; No Shortness of Air Allergies and Home Medications Allergies Coded Allergies: amlodipine (Verified Allergy, Unknown, 10/25/19) clarithromycin (Verified Allergy, Unknown, 10/21/19) hydrocodone (Verified Allergy, Unknown, 10/21/19) Home Medications Acetaminophen 500 Mg Tablet, 500-1,000 MG PO Q6H PRN for PAIN-MILD, (Reported) Albuterol Sulfate 1 Puff Puff, 2 PUFF IH Q6H PRN for SHORTNESS OF BREATH, (Reported) 1 PUFF = 90 MCG Ascorbate Calcium 500 Mg Tablet, 500 MG PO HS, (Reported) Atorvastatin Calcium 20 Mg Tablet, 20 MG PO HS, (Reported) MAY HAVE RECEIVED FROM REPOSITORY IN JUL[place] BUT PATIENT STATES SHE HAS BEEN OUT FOR AWHILE Cholecalciferol (Vitamin D3) 1,000 Unit Capsule, 2,000 UNIT PO HS, (Reported) Doxazosin Mesylate 4 Mg Tablet, 4 MG PO HS Prescribed by: DANNY KHAN on 10/25/19 1028 Elderberry Fruit and Flower 1 Each Capsule, 1 CAP PO HS, (Reported) Fluoxetine HCl 20 Mg Capsule, 20 MG PO DAILY, (Reported) HAS NOT STARTED YET, THIS IS TO REPLACE CITALOPRAM Gabapentin 600 Mg Tablet, 1,200 MG PO TID, (Reported) TAKES 2 (600MG) TABLETS Hydralazine HCl 25 Mg Tablet, 25 MG PO TID Prescribed by: DANNY KHAN on 10/25/19 1028 Insulin Detemir 100 Unit/1 Ml Insuln.pen, 30 UNIT SQ BID PRN for WHEN REMEMBERS, (Reported) LAST FILLED 11-23-18 - ADMITS SHE DOES NOT USE REGULARLY Insulin Lispro 100 Unit/1 Ml Insuln.pen, 30 UNIT SQ TIDAC, (Reported) Lactulose 10 Gm/15 Ml Solution, 15 ML PO TID PRN for CONSTIPATION-3RD LINE, (Reported) Metoprolol Succinate 100 Mg Tab.er.24h, 100 MG PO DAILY, (Reported) Metronidazole 500 Mg Tablet, 500 MG PO BID Prescribed by: DANNY KHAN on 10/25/19 1028 Patient Home Medication List Home Medication List Reviewed: Yes Review of Systems Review of Systems Constitutional: see HPI; No chills, No fever EENTM: see HPI Respiratory: see HPI; No short of breath Cardiovascular: no symptoms reported Gastrointestinal: see HPI Genitourinary: No dysuria, No frequency Musculoskeletal: No back pain, No muscle pain Skin: no symptoms reported Psychiatric/Neurological: Anxiety; Denies Headache All Other Systems Reviewed Negative Unless Noted: Yes Past Vywlniy-Trvwli-Mcorhh Hx Past Med/Social Hx: Reviewed Nursing Past Med/Soc Hx Patient Social History Alcohol Use: Denies Use Recreational Drug Use: No Smoking Status: Never a Smoker 2nd Hand Smoke Exposure: No Recent Foreign Travel: No Contact w/Someone Who Travel: No Recent Hopitalizations: No Immunizations Up To Date Tetanus Booster (TDap): Unknown Seasonal Allergies Seasonal Allergies: Yes Past Medical History Surgeries: Yes Abdominal, Section, Eye Surgery, Orthopedic Respiratory: No Cardiac: Yes Hypertension Neurological: Yes (PERIPHERAL NEUROPATHY) 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 Genitourinary: No Gastrointestinal: Yes Gastroesophageal Reflux Musculoskeletal: No Endocrine: Yes Diabetes, Insulin dep HEENT: Yes (RETINOPATHY) Macular Degeneration Cancer: No Psychosocial: Yes Anxiety Integumentary: Yes (L foot wound) Recent Skin Changes Blood Disorders: No Family Medical History Reviewed Nursing Family Hx No Pertinent Family Hx Physical Exam-Suspected Sepsis Physical Exam Vital Signs Vital Signs - First Documented 10/29/19 21:25 Temp 39.0 Pulse 102 Resp 25 B/P (MAP) 171/101 (124) Pulse Ox 98 O2 Delivery Room Air Capillary Refill : Height, Weight, BMI Height: 5'5.00" Weight: 221lbs. 4.8oz. 100.787342op; 38.95 BMI Method:Stated General Appearance: WD/WN, Moderate Distress HEENT: PERRL/EOMI, Pharyngeal Erythema, Other (nasal congestion bilateral) Neck: Non Tender, Supple Respiratory: Lungs Clear, Normal Breath Sounds Cardiovascular: No Murmur, Tachycardia Gastrointestinal: Non Tender, Soft Back: Normal Inspection, No CVA Tenderness, No Vertebral Tenderness Extremity: Normal Range of Motion, Non Tender Neurologic/Psychiatric: Alert, Oriented x3 Skin: warm/dry; No rash on exposed areas Focused Exam Lactate Level 10/29/19 21:45: Lactic Acid Level 0.85 Lactic Acid Level Laboratory Tests Test 10/29/19 21:45 Lactic Acid Level 0.85 MMOL/L (0.50-2.00) Progress/Results/Core Measures Suspected Sepsis SIRS Temperature: Pulse: Respiratory Rate: Laboratory Tests 10/29/19 21:45: White Blood Count 9.2 Blood Pressure / Mean: 10/29/19 21:45: Lactic Acid Level 0.85 Laboratory Tests 10/29/19 21:45: Creatinine 2.19H, INR Comment 1.0, Platelet Count 193, Total Bilirubin 0.3 Results/Orders Lab Results Laboratory Tests Test 10/29/19 21:40 10/29/19 21:45 10/29/19 22:25 10/29/19 23:14 Range/Units Glucometer 219 H 70-110 MG/DL White Blood Count 9.2 4.3-11.0 10^3/uL Red Blood Count 3.60 L 4.35-5.85 10^6/uL Hemoglobin 10.5 L 11.5-16.0 G/DL Hematocrit 31 L 35-52 % Mean Corpuscular Volume 87 80-99 FL Mean Corpuscular Hemoglobin 29 25-34 PG Mean Corpuscular Hemoglobin Concent 34 32-36 G/DL Red Cell Distribution Width 13.8 10.0-14.5 % Platelet Count 193 130-400 10^3/uL Mean Platelet Volume 11.6 H 7.4-10.4 FL Neutrophils (%) (Auto) 65 42-75 % Lymphocytes (%) (Auto) 25 12-44 % Monocytes (%) (Auto) 9 0-12 % Eosinophils (%) (Auto) 1 0-10 % Basophils (%) (Auto) 0 0-10 % Neutrophils # (Auto) 6.0 1.8-7.8 X 10^3 Lymphocytes # (Auto) 2.2 1.0-4.0 X 10^3 Monocytes # (Auto) 0.8 0.0-1.0 X 10^3 Eosinophils # (Auto) 0.1 0.0-0.3 10^3/uL Basophils # (Auto) 0.0 0.0-0.1 10^3/uL Prothrombin Time 13.0 12.2-14.7 SEC INR Comment 1.0 0.8-1.4 Activated Partial Thromboplast Time 27 24-35 SEC Sodium Level 132 L 135-145 MMOL/L Potassium Level 6.0 H 3.6-5.0 MMOL/L Chloride Level 99 98-107 MMOL/L Carbon Dioxide Level 19 L 21-32 MMOL/L Anion Gap 14 5-14 MMOL/L Blood Urea Nitrogen 45 H 7-18 MG/DL Creatinine 2.19 H 0.60-1.30 MG/DL Estimat Glomerular Filtration Rate 24 BUN/Creatinine Ratio 21 Glucose Level 219 H 70-105 MG/DL Lactic Acid Level 0.85 0.50-2.00 MMOL/L Calcium Level 9.7 8.5-10.1 MG/DL Corrected Calcium 9.5 8.5-10.1 MG/DL Phosphorus Level 4.1 2.3-4.7 MG/DL Magnesium Level 1.8 1.6-2.4 MG/DL Total Bilirubin 0.3 0.1-1.0 MG/DL Aspartate Amino Transf (AST/SGOT) 23 5-34 U/L Alanine Aminotransferase (ALT/SGPT) 29 0-55 U/L Alkaline Phosphatase 33 L 40-136 U/L Total Protein 7.9 6.4-8.2 GM/DL Albumin 4.2 3.2-4.5 GM/DL Urine Color YELLOW Urine Clarity CLEAR Urine pH 6.0 5-9 Urine Specific Russell >=1.030 1.016-1.022 Urine Protein 3+ H NEGATIVE Urine Glucose (UA) TRACE H NEGATIVE Urine Ketones NEGATIVE NEGATIVE Urine Nitrite NEGATIVE NEGATIVE Urine Bilirubin NEGATIVE NEGATIVE Urine Urobilinogen 0.2 < = 1.0 MG/DL Urine Leukocyte Esterase NEGATIVE NEGATIVE Urine RBC (Auto) 1+ H NEGATIVE Urine RBC 2-5 H /HPF Urine WBC 0-2 /HPF Urine Crystals NONE /LPF Urine Bacteria TRACE /HPF Urine Casts NONE /LPF Urine Mucus NEGATIVE /LPF Urine Culture Indicated NO Blood Gas Puncture Site RIGHT RADIAL Blood Gas Patient Temperature 36.9 Arterial Blood pH 7.43 7.37-7.43 Arterial Blood Partial Pressure CO2 37 35-45 MMHG Arterial Blood Partial Pressure O2 80 79-93 MMHG Arterial Blood HCO3 24 23-27 MMOL/L Arterial Blood Total CO2 25.6 21.0-31.0 MMOL/L Arterial Blood Oxygen Saturation 97 94-100 % Arterial Blood Base Excess 0.7 -2.5-2.5 MMOL/L Andrea Test POSITIVE Blood Gas Ventilator Setting NO Blood Gas Inspired Oxygen ROOM AIR Micro Results Microbiology 10/29/19 Influenza Types A,B Antigen (JENNIFFER) - Final, Complete My Orders Orders - LOR GARNER MD Accucheck Stat ONCE (10/29/19 21:33) Cbc With Automated Diff (10/29/19 21:33) Comprehensive Metabolic Panel (10/29/19 21:33) Blood Culture (10/29/19 21:33) Sputum Culture (10/29/19 21:33) Urinalysis (10/29/19 21:33) Urine Culture (10/29/19 21:33) Protime With Inr (10/29/19 21:33) Partial Thromboplastin Time (10/29/19 21:33) Chest 1 View, Ap/Pa Only (10/29/19 21:33) Acetaminophen Tablet (Tylenol Tablet) (10/29/19 21:45) Ed Iv/Invasive Line Start (10/29/19 21:33) Vital Signs Adult Sepsis Patie Q15M (10/29/19 21:33) Remove Rings In Anticipation O (10/29/19 21:33) Lactic Acid Analyzer (10/29/19 21:33) Influenza A And B Antigens (10/29/19 21:33) Lactated Ringers (Lr 1000 Ml Iv Solution (10/29/19 21:33) Promethazine Injection (Phenergan Injec (10/29/19 21:33) Ed Iv/Invasive Line Start (10/29/19 21:36) Lactated Ringers (Lr 1000 Ml Iv Solution (10/29/19 21:36) Magnesium (10/29/19 21:38) Phosphorus (10/29/19 21:38) Arterial Blood Gas (10/29/19 23:14) Oseltamivir 75 Mg Capsule (Tamiflu 75 (10/29/19 22:15) Ekg Tracing (10/29/19 22:24) Hydralazine Injection (Apresoline Inject (10/29/19 23:30) Ondansetron Injection (Zofran Injectio (10/29/19 23:30) Medications Given in ED Current Medications Medications Dose Ordered Sig/Arlet Route Start Time Stop Time Status Last Admin Dose Admin Acetaminophen 1,000 mg ONCE PRN PO 10/29/19 21:45 10/29/19 22:19 DC 10/29/19 22:18 1,000 MG Hydralazine HCl 10 mg ONCE ONCE IV 10/29/19 23:30 10/29/19 23:31 DC 10/29/19 23:52 10 MG Lactated Ringer's 1,000 ml @ 0 mls/hr Q0M ONCE IV 10/29/19 21:33 10/29/19 21:36 DC 10/29/19 21:55 1,000 MLS/HR Lactated Ringer's 1,000 ml @ 0 mls/hr Q0M ONCE IV 10/29/19 21:36 10/29/19 21:37 DC 10/29/19 23:38 1,000 MLS/HR Ondansetron HCl 4 mg ONCE ONCE IVP 10/29/19 23:30 10/29/19 23:31 DC 10/29/19 23:48 4 MG Oseltamivir Phosphate 75 mg ONCE ONCE PO 10/29/19 22:15 10/29/19 22:16 DC 10/29/19 23:09 75 MG Vital Signs/I&O 10/29/19 10/29/19 21:25 21:25 Temp 39.0 Pulse 102 Resp 25 B/P (MAP) 171/101 (124) Pulse Ox 98 O2 Delivery Room Air Room Air Capillary Refill : Point of Care Testing Finger Stick Blood Glucose: 219 Blood Glucose Action Taken: AND RN NOTIFIED Progress Note : Progress Note Seen and evaluated. IV, labs, UA, chest x-ray, influenza screen, blood cultures and lactic acid ordered. LR 2 L bolus ordered. Phenergan 25 mg IV. Monitor patient. 2200: She Influenza B positive. Tamiflu 75 mg by mouth ordered. Monitor patient. 2330: Labs reviewed. Patient does have acute on chronic renal failure. Hydralazine 10 mg IV given for her hypertension. She is still having the nausea and gagging. Zofran 4 mg IV ordered. I did discuss the case with Dr. Morin, on-call for [facility], and she accepts patient for admission, inpatient status. We will initiate sliding scale insulin and continue Tamiflu. Zofran and Phenergan for nausea and vomiting. We will continue Toprol XL 100 mg daily as well as the hydralazine 25 mg by mouth every 8 hours for her blood pressure control. Discussed findings and concerns with the patient who agrees with the plan. ECG Initial ECG Impression Date: Oct 29, 2019 Initial ECG Impression Time: 22:31 Initial ECG Rate: 97 Initial ECG Rhythm: S.Tach Comment Sinus tachycardia with normal axis. No evidence of ST elevation RI. No QRS widening. No previous available for comparison. Interpreted by me. Diagnostic Imaging Diagonstic Imaging: Xray Plain Films/CT/US/NM/MRI: chest Comments [facility] [place] NAME: COLLINS COTA [facility] REC#: [id number] PT STATUS: REG ER : 1970 PHYSICIAN: LOR GARNER MD ADMIT DATE: 10/29/19/ER Signed Date of Exam:10/29/19 CHEST 1 VIEW, AP/PA ONLY Indication: Cough and congestion Portable chest 10:46 PM Heart size and pulmonary vascularity are normal. Lungs are clear. There are no effusions or pneumothoraces. IMPRESSION: Negative chest Dictated by: Dictated on workstation # [id number] Dict: 10/29/192316 Trans: 10/29/192316 [id number] Interpreted by: LOR BARCENAS MD Electronically signed by: LOR BARCENAS MD 10/29/192316 Departure Communication (Admissions) Time/Spoke to Admitting Phy: 23:31 Impression Primary Impression: Influenza B Additional Impressions: Acute on chronic renal failure Qualified Codes: N17.9 - Acute kidney failure, unspecified; N18.9 - Chronic kidney disease, unspecified Intractable nausea and vomiting Uncontrolled hypertension Uncontrolled diabetes mellitus Qualified Codes: E11.65 - Type 2 diabetes mellitus with hyperglycemia Disposition: ADMITTED INPATIENT Condition: Stable Admissions Decision to Admit Reason: Admit from ER (General) Decision to Admit/Date: Oct 29, 2019 Time/Decision to Admit Time: 23:31 Departure-Patient Inst. Referrals: ALVA BENTLEY MD (PCP/Family) Primary Care Physician LOR GARNER MD Oct 29, 2019 22:11
[2019-10-29] MEDS ORDERED: OSELTAMIVIR 75 MG (TAMIFLU) CAPSULE PO ONE (22:15)
[2019-10-29 22:20] LABS: ALBUMIN 4.2 GM/DL (3.2-4.5); BILIRUBIN,TOTAL 0.3 MG/DL (0.1-1.0); CALCIUM 9.7 MG/DL (8.5-10.1); CREATININE SERUM 2.19 MG/DL (0.60-1.30); MAGNESIUM 1.8 MG/DL (1.6-2.4); PHOSPHORUS 4.1 MG/DL (2.3-4.7); TOTAL PROTEIN 7.9 GM/DL (6.4-8.2)
[2019-10-29 22:36] LABS: BILIRUBIN,URINE NEGATIVE (NEGATIVE); CLARITY,URINE CLEAR; COLOR,URINE YELLOW; GLUCOSE, URINE (UA) TRACE (NEGATIVE); KETONES,URINE NEGATIVE (NEGATIVE); LEUKOCYTE ESTERASE ,URINE NEGATIVE (NEGATIVE); NITRITE,URINE NEGATIVE (NEGATIVE); PROTEIN,URINE 3+ (NEGATIVE)
[2019-10-29 22:52] LABS: WBC,URINE 0-2 /HPF
[2019-10-29 22:53] LABS: BACTERIA,URINE TRACE /HPF
--- NOTE | 2019-10-29 22:57 | NUR ---
report given to WALLY Eddy
--- NOTE | 2019-10-29 23:19 | Diagnostic Imaging Report ---
Indication: Cough and congestion Portable chest 10:46 PM Heart size and pulmonary vascularity are normal. Lungs are clear. There are no effusions or pneumothoraces. IMPRESSION: Negative chest Dictated by: Dictated on workstation # [id number]
[2019-10-29 23:20] LABS: ABG BASE EXCESS 0.7 MMOL/L (-2.5-2.5); ABG OXYGEN SATURATION 97 % (94-100); ABG PCO2 37 MMHG (35-45); ABG PH 7.43 (7.37-7.43); ABG PO2 80 MMHG (79-93); ABG TCO2 25.6 MMOL/L (21.0-31.0)
[2019-10-29 23:22] LABS: ALLENS TEST POSITIVE; INSPIRED O2 ROOM AIR; PATIENT TEMP 36.9; VENTILATOR NO
[2019-10-29] MEDS ORDERED: hydrALAZINE (APESOLINE) 20 MG/ML VIAL IV ONE (23:30)
[2019-10-29] MEDS ORDERED: ONDANSETRON 4 MG/2 ML (SDV) Z0FRAN IVP ONE (23:30)
--- NOTE | 2019-10-30 00:10 | NUR ---
REPORT RECEIVED FROM WALLY GARCIA.
--- NOTE | 2019-10-30 01:00 | NUR ---
COLLINS COTA admitted to room 416-1, with an admitting diagnosis of INFLUENZA B, ACUTE RENAL INSUFICIENCY, N/V, on 10/29/19 from [facility] ED VIA WHEELCHAIR, accompanied by STAFF.COLLINS COTA introduced to surroundings, call light, bed controls, phone, TV, temperature control, lights, meal times, smoking policy, visitor policy, side rail policy, bathrooms and showers. Patient Rights given to patient in the handbook. COLLINS COTA verbalizes understanding that [facility] is not responsible for the loss or damage to any personal effects or valuables that are kept in the patients posession during their hospitalization. COLLINS COTA verbalizes understanding of Interdisciplinary Patient Education. Patient and/or family were informed about the Rapid Response Team and its purpose.
[2019-10-30] MEDS ORDERED: NS IV 1000 ML 1,000 ML ONE (01:14)
--- NOTE | 2019-10-30 01:27 | NUR ---
THIS RN NOTIFIED DR. LORENZANA OF RASH ON PT'S HANDS AND ARMS. THIS RN INFORMED DR. LORENZANA THAT THE PT STATED "IT'S FROM FLAGYL. IT'S THE ONLY THING I CAN TAKE TO GET RID OF WHAT I HAVE." THIS RN INFORMED DR. LORENZANA THAT PT HAS CURRENT TRICHOMONIASIS INFECTION AND THAT PT STATES SHE TAKES FLAGYL AND HAS TWO DAYS LEFT. DVT PROPHYLAXIS REQUESTED AT THIS TIME. NEW ORDERS OBTAINED, SEE ORDER HX.
[2019-10-30] MEDS ORDERED: diphenhydrAMINE 25 MG TAB (BENADRYL) PO PRN (01:30)
[2019-10-30 02:24] VITALS: BP 187/88
[2019-10-30] MEDS: NS IV 1000 ML 1,000 ML IV SCH ×3 (03:30→16:03)
[2019-10-30] MEDS ORDERED: PROMETHAZINE INJ 25 MG/ML (PHENERGAN) AMP IVP PRN (03:30)
[2019-10-30 04:00] VITALS: BP 213/99
[2019-10-30] MEDS: ONDANSETRON 4 MG/2 ML (SDV) Z0FRAN IVP PRN ×3 (04:49→16:01)
[2019-10-30] MEDS: hydrALAZINE (APRESOLINE) 25 MG TAB PO SCH ×3 (05:26→21:41)
[2019-10-30] MEDS ORDERED: ENOXAPARIN 30 MG/0.3 ML (LOVENOX) SYR SC SCH (06:00)
[2019-10-30 06:01] LABS: BASOPHILS % (AUTO) 0 % (0-10); EOSINOPHILS % (AUTO) 0 % (0-10); HEMATOCRIT 29 % (35-52); HEMOGLOBIN 9.5 G/DL (11.5-16.0); LYMPHOCYTES # (AUTO) 1.9 X 10^3 (1.0-4.0); LYMPHOCYTES % (AUTO) 18 % (12-44); MEAN CORPUSCULAR HEMOGLOBIN 29 PG (25-34); MEAN CORPUSCULAR HGB CONC 33 G/DL (32-36); MEAN CORPUSCULAR VOLUME 87 FL (80-99); MEAN PLATELET VOLUME 11.3 FL (7.4-10.4); MONOCYTES # (AUTO) 0.8 X 10^3 (0.0-1.0); MONOCYTES % (AUTO) 7 % (0-12); NEUTROPHILS # (AUTO) 7.6 X 10^3 (1.8-7.8); NEUTROPHILS % (AUTO) 74 % (42-75); PLATELET COUNT 186 10^3/uL (130-400); RED CELL DISTRIBUTION WIDTH 13.6 % (10.0-14.5); WHITE BLOOD COUNT 10.3 10^3/uL (4.3-11.0)
[2019-10-30 06:21] LABS: ALBUMIN 3.7 GM/DL (3.2-4.5); BILIRUBIN,TOTAL 0.4 MG/DL (0.1-1.0); CREATININE SERUM 1.57 MG/DL (0.60-1.30); POTASSIUM 4.7 MMOL/L (3.6-5.0); TOTAL PROTEIN 6.7 GM/DL (6.4-8.2)
[2019-10-30] MEDS: inSUlin ASPART (NovoLOG) 1 UNIT/0.01 ML (CHARGE PER UNIT) SC SCH ×4 (06:29→21:40)
[2019-10-30 08:00] VITALS: BP 171/93
[2019-10-30] MEDS ORDERED: OSELTAMIVIR 75 MG (TAMIFLU) CAPSULE PO SCH (09:00)
[2019-10-30] MEDS: meTOprolol SUCCINATE 100 MG (TOPROL XL) TAB PO SCH (09:09)
[2019-10-30 12:00] VITALS: BP 172/79
--- NOTE | 2019-10-30 12:32 | History & Physical-Hospitalist ---
History of Present Illness HPI/Chief Complaint this is a 49-year-old white female who presents with abdominal discomfort myalgias and nausea and vomiting. She also notes she's been having a cough. At the time of my interview she has vomitus in a bucket that is present,and continues to gag during my interview. She was flu B+ Source: patient Exam Limitations: clinical condition Date Seen 10/30/19 Time Seen by a Provider: 12:00 Attending Physician Criselda Lorenzana MD PCP Dante Catherine MD Referring Physician Date of Admission Oct 29, 2019 at 23:45 Home Medications & Allergies Home Medications Reviewed patient Home Medication Reconciliation performed by pharmacy medication reconciliations highway traffic control technician and/or nursing. Patients Allergies have been reviewed. Allergies Allergies Coded Allergies metronidazole (Unverified Allergy, Mild, RASH, 10/30/19) MACULAR RASH amlodipine (Verified Allergy, Unknown, 10/25/19) clarithromycin (Verified Allergy, Unknown, 10/21/19) hydrocodone (Verified Allergy, Unknown, 10/21/19) Past Ltcqwix-Setbvw-Vfovan Hx Past Med/Social Hx: Reviewed Nursing Past Med/Soc Hx Patient Social History Marrital Status: single Employed/Student: unemployed Alcohol Use: Denies Use Recreational Drug Use: No Smoking Status: Never a Smoker 2nd Hand Smoke Exposure: No Recent Foreign Travel: No Contact w/other who traveled: No Recent Hopitalizations: No Recent Infectious Disease Expo: No Immunizations Up To Date Tetanus Booster (TDap): Unknown Seasonal Allergies Seasonal Allergies: Yes Past Medical History Surgeries: Abdominal, Section, Eye Surgery, Orthopedic Cardiac: Hypertension Neurological: Neuropathy : No Menopausal Gastrointestinal: Gastroesophageal Reflux Endocrine: Diabetes, Insulin dep HEENT: Macular Degeneration Psychosocial: Anxiety Skin/Integumentary: Recent Skin Changes History of Blood Disorders: No Family History Reviewed Nursing Family Hx Asthma 19 MOTHER G8 BROTHER G8 BROTHER Cardiovascular disease 19 FATHER G8 BROTHER Diabetes mellitus G8 BROTHER G8 BROTHER Kidney disease G8 BROTHER Myocardial infarction 19 FATHER Respiratory disorder G8 BROTHER No Pertinent Family Hx Review of Systems Constitutional: see HPI, weakness EENTM: vision loss Respiratory: no symptoms reported Cardiovascular: no symptoms reported Gastrointestinal: abdominal pain, nausea, vomiting Genitourinary: no symptoms reported Musculoskeletal: no symptoms reported Skin: no symptoms reported Psychiatric/Neurological: Anxiety Physical Exam Physical Exam Vital Signs Vital Signs - First Documented 1/17/20 21:25 Temp 39.0 Pulse 102 Resp 25 B/P (MAP) 171/101 (124) Pulse Ox 98 O2 Delivery Room Air Capillary Refill : Less Than 3 Seconds Height, Weight, BMI Height: 5'5.00" Weight: 221lbs. 4.8oz. 100.417770st; 37.59 BMI Method:Stated General Appearance: Mild Distress (vomiting) HEENT: Normal ENT Inspection Neck: Full Range of Motion, Normal Inspection, Non Tender, Supple Respiratory: Chest Non Tender, Lungs Clear, Normal Breath Sounds, No Accessory Muscle Use, No Respiratory Distress Cardiovascular: Regular Rate, Rhythm, No Gallop, No JVD, No Murmur, Normal Peripheral Pulses Gastrointestinal: Normal Bowel Sounds, Non Tender, Soft Back: No CVA Tenderness Extremity: Normal Inspection, No Calf Tenderness, Pedal Edema Neurologic/Psychiatric: Alert, Oriented x3, No Motor/Sensory Deficits Skin: Pallor Results Results/Procedures Labs Laboratory Tests 10/29/19 21:45 10/30/19 05:49 10/31/19 05:02 Patient resulted labs reviewed. 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
[2019-10-30] MEDS ORDERED: hydrALAZINE (APRESOLINE) 25 MG TAB PO SCH (13:00)
[2019-10-30 13:07] LABS: AMYLASE 42 U/L (25-125); LIPASE 21 U/L (8-78)
[2019-10-30] MEDS: GABAPENTIN 600 MG (NEURONTIN) TAB PO SCH ×2 (13:26→21:48)
[2019-10-30] MEDS: ACETAMINOPHEN 325 MG TABLET PO PRN (14:12)
[2019-10-30 15:59] VITALS: BP 119/75
[2019-10-30] MEDS: METOCLOPRAMIDE INJ 10 MG/2 ML (REGLAN) IVP SCH (18:06)
[2019-10-30 19:45] VITALS: BP 103/59
[2019-10-30] MEDS: doxAzosin 4 MG (CARDURA) TAB PO SCH (21:41)
[2019-10-30] MEDS: OSELTAMIVIR 30 MG (TAMIFLU) CAPSULE PO SCH (21:41)
--- NOTE | 2019-10-30 21:48 | NUR ---
PT EXTREMELY TIRED AT THIS TIME. WILL HOLD GABAPENTIN.
[2019-10-31] MEDS: METOCLOPRAMIDE INJ 10 MG/2 ML (REGLAN) IVP SCH ×2 (00:08→05:36)
[2019-10-31 00:12] VITALS: BP 127/62
[2019-10-31] MEDS: ACETAMINOPHEN 325 MG TABLET PO PRN ×2 (00:13→20:37)
[2019-10-31 05:35] LABS: BASOPHILS % (AUTO) 0 % (0-10); EOSINOPHILS % (AUTO) 0 % (0-10); HEMATOCRIT 26 % (35-52); HEMOGLOBIN 8.2 G/DL (11.5-16.0); LYMPHOCYTES # (AUTO) 2.7 X 10^3 (1.0-4.0); LYMPHOCYTES % (AUTO) 39 % (12-44); MEAN CORPUSCULAR HEMOGLOBIN 29 PG (25-34); MEAN CORPUSCULAR HGB CONC 32 G/DL (32-36); MEAN CORPUSCULAR VOLUME 90 FL (80-99); MEAN PLATELET VOLUME 11.6 FL (7.4-10.4); MONOCYTES # (AUTO) 0.6 X 10^3 (0.0-1.0); MONOCYTES % (AUTO) 9 % (0-12); NEUTROPHILS # (AUTO) 3.6 X 10^3 (1.8-7.8); NEUTROPHILS % (AUTO) 52 % (42-75); PLATELET COUNT 156 10^3/uL (130-400); RED CELL DISTRIBUTION WIDTH 14.2 % (10.0-14.5); WHITE BLOOD COUNT 6.9 10^3/uL (4.3-11.0)
[2019-10-31] MEDS: ENOXAPARIN 40 MG/0.4 ML (LOVENOX) SYR SC SCH (05:36)
[2019-10-31] MEDS: NS IV 1000 ML 1,000 ML IV SCH ×3 (05:37→20:40)
[2019-10-31] MEDS: hydrALAZINE (APRESOLINE) 25 MG TAB PO SCH ×3 (05:37→20:37)
[2019-10-31 06:04] LABS: ALBUMIN 3.1 GM/DL (3.2-4.5); BILIRUBIN,TOTAL 0.3 MG/DL (0.1-1.0); CALCIUM 7.9 MG/DL (8.5-10.1); CREATININE SERUM 1.79 MG/DL (0.60-1.30); MAGNESIUM 1.9 MG/DL (1.6-2.4); POTASSIUM 4.1 MMOL/L (3.6-5.0); TOTAL PROTEIN 5.8 GM/DL (6.4-8.2)
[2019-10-31] MEDS: inSUlin ASPART (NovoLOG) 1 UNIT/0.01 ML (CHARGE PER UNIT) SC SCH ×4 (06:21→19:30)
[2019-10-31 08:00] VITALS: BP 159/86
[2019-10-31] MEDS ORDERED: meTOprolol SUCCINATE 100 MG (TOPROL XL) TAB PO SCH (09:00)
[2019-10-31] MEDS: FLUoxetine HCL 20 MG (PROzac) CAP PO SCH (09:10)
[2019-10-31] MEDS: OSELTAMIVIR 30 MG (TAMIFLU) CAPSULE PO SCH ×2 (09:11→20:37)
[2019-10-31] MEDS: meTOprolol SUCCINATE 100 MG (TOPROL XL) TAB PO SCH (09:11)
[2019-10-31] MEDS: GABAPENTIN 600 MG (NEURONTIN) TAB PO SCH ×3 (09:11→20:37)
[2019-10-31] MEDS ORDERED: PSEUDOEPHEDRINE HCL 30 MG (SUDAFED) TAB PO NR (12:30)
--- NOTE | 2019-10-31 12:31 | Progress Note - Hospitalist ---
Subjective HPI/CC On Admission Date Seen by Provider: Oct 31, 2019 Time Seen by Provider: 11:50 this is a 49-year-old white female who presents with abdominal discomfort myalgias and nausea and vomiting. She also notes she's been having a cough. At the time of my interview she has vomitus in a bucket that is present,and continues to gag during my interview. She was flu B+ Subjective/Events-last exam patient's nausea is much better controlled but she's been sleeping all the time. Upon awakening she complains of a great deal of congestion and coughing. Review of Systems HEENT: Sinus Congestion Pulmonary: Cough Neurological: Weakness Focused Exam Lactate Level 10/29/19 21:45: Lactic Acid Level 0.85 Objective Exam Vital Signs Vital Signs Date Time Temp Pulse Resp B/P (MAP) Pulse Ox O2 Delivery O2 Flow Rate FiO2 10/31/19 08:00 37.0 89 20 159/86 (110) 95 Room Air Capillary Refill : Less Than 3 Seconds General Appearance: No Apparent Distress, WD/WN HEENT: Normal ENT Inspection Neck: Normal Inspection, Non Tender, Supple Respiratory: Decreased Breath Sounds, Rhonci Cardiovascular: Regular Rate, Rhythm, No Gallop Gastrointestinal: Normal Bowel Sounds, Non Tender, Soft Extremity: No Pedal Edema Results/Procedures Lab Laboratory Tests 10/31/19 05:02 Patient resulted labs reviewed. 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
--- NOTE | 2019-10-31 13:51 | Diagnostic Imaging Report ---
Indication: Dyspnea with cough and congestion. Comparison: 10/29/2019. Discussion: Two views of the chest were obtained. Normal heart size. No focal consolidation, pleural fluid, or pneumothorax. No osseous abnormality. Impression: 1. Negative chest. Dictated by: Dictated on workstation # [id number]
[2019-10-31 16:27] VITALS: BP 166/84
[2019-10-31] MEDS: doxAzosin 4 MG (CARDURA) TAB PO SCH (20:36)
[2019-10-31] MEDS: guaiFENesin (MUCINEX) 600 MG TAB PO SCH (20:37)
[2019-11-01] VITALS: BP 146/72
[2019-11-01] MEDS: ENOXAPARIN 40 MG/0.4 ML (LOVENOX) SYR SC SCH (06:02)
[2019-11-01] MEDS: inSUlin ASPART (NovoLOG) 1 UNIT/0.01 ML (CHARGE PER UNIT) SC SCH ×2 (06:02→09:56)
[2019-11-01] MEDS: hydrALAZINE (APRESOLINE) 25 MG TAB PO SCH (06:02)
[2019-11-01 06:27] LABS: BASOPHILS % (AUTO) 0 % (0-10); EOSINOPHILS # (AUTO) 0.1 10^3/uL (0.0-0.3); EOSINOPHILS % (AUTO) 1 % (0-10); HEMATOCRIT 27 % (35-52); HEMOGLOBIN 8.7 G/DL (11.5-16.0); LYMPHOCYTES # (AUTO) 2.6 X 10^3 (1.0-4.0); LYMPHOCYTES % (AUTO) 45 % (12-44); MEAN CORPUSCULAR HEMOGLOBIN 29 PG (25-34); MEAN CORPUSCULAR HGB CONC 32 G/DL (32-36); MEAN CORPUSCULAR VOLUME 90 FL (80-99); MEAN PLATELET VOLUME 11.7 FL (7.4-10.4); MONOCYTES # (AUTO) 0.5 X 10^3 (0.0-1.0); MONOCYTES % (AUTO) 8 % (0-12); NEUTROPHILS # (AUTO) 2.7 X 10^3 (1.8-7.8); NEUTROPHILS % (AUTO) 46 % (42-75); PLATELET COUNT 165 10^3/uL (130-400); RED CELL DISTRIBUTION WIDTH 13.7 % (10.0-14.5); WHITE BLOOD COUNT 5.8 10^3/uL (4.3-11.0)
[2019-11-01 06:54] LABS: ALBUMIN 3.3 GM/DL (3.2-4.5); BILIRUBIN,TOTAL 0.3 MG/DL (0.1-1.0); CREATININE SERUM 1.56 MG/DL (0.60-1.30); POTASSIUM 4.3 MMOL/L (3.6-5.0); TOTAL PROTEIN 6.1 GM/DL (6.4-8.2)
[2019-11-01 08:00] VITALS: BP 116/59
[2019-11-01] MEDS: FLUoxetine HCL 20 MG (PROzac) CAP PO SCH (08:26)
[2019-11-01] MEDS: guaiFENesin (MUCINEX) 600 MG TAB PO SCH (08:26)
[2019-11-01] MEDS: OSELTAMIVIR 30 MG (TAMIFLU) CAPSULE PO SCH (08:26)
[2019-11-01] MEDS: meTOprolol SUCCINATE 100 MG (TOPROL XL) TAB PO SCH (08:27)
[2019-11-01] MEDS: GABAPENTIN 600 MG (NEURONTIN) TAB PO SCH (08:27)
--- NOTE | 2019-11-01 10:57 | Progress Note ---
ALBERT PERRY,MED STUDENT 11/01/19 1057: Subjective Subjective/Events-last exam Pt. denies any new concerns this am. Admits continued congestion, bloating, constipation. Denies nausea, vomiting, ROQUE, myalgias. Has been on liquid diet since 10/31. Urinating okay. Last bm was Friday, and stools have been small volume and firm. Afebrile today. Focused Exam Lactate Level 10/29/19 21:45: Lactic Acid Level 0.85 Objective Exam Last Set of Vital Signs Vital Signs Date Time Temp Pulse Resp B/P (MAP) Pulse Ox O2 Delivery O2 Flow Rate FiO2 11/01/19 08:00 36.3 80 18 116/59 (78) 98 Room Air Capillary Refill : Less Than 3 SecondsLess Than 3 Seconds I&O Intake and Output 11/01/19 00:00 Intake Total 2880 ml Balance 2880 ml Intake Oral 2880 ml # Voids 6 General: Alert, Oriented X3, No Acute Distress Lungs: Clear to Auscultation, Normal Air Movement Heart: Regular Rate, Normal S1, Normal S2 Abdomen: Normal Bowel Sounds, Soft, No Tenderness, Other (Distended) Extremities: Normal Pulses, Other (Good capillary refill) Results/Procedures Lab Laboratory Tests 10/31/19 15:03: Glucometer 194H 10/31/19 19:31: Glucometer 198H 11/01/19 05:49: Glucometer 291H 11/01/19 05:51: White Blood Count 5.8, Red Blood Count 3.03L, Hemoglobin 8.7L, Hematocrit 27L, Mean Corpuscular Volume 90, Mean Corpuscular Hemoglobin 29, Mean Corpuscular Hemoglobin Concent 32, Red Cell Distribution Width 13.7, Platelet Count 165, Mean Platelet Volume 11.7H, Neutrophils (%) (Auto) 46, Lymphocytes (%) (Auto) 45H, Monocytes (%) (Auto) 8, Eosinophils (%) (Auto) 1, Basophils (%) (Auto) 0, Neutrophils # (Auto) 2.7, Lymphocytes # (Auto) 2.6, Monocytes # (Auto) 0.5, Eosinophils # (Auto) 0.1, Basophils # (Auto) 0.0, Sodium Level 136, Potassium Level 4.3, Chloride Level 105, Carbon Dioxide Level 20L, Anion Gap 11, Blood Urea Nitrogen 37H, Creatinine 1.56H, Estimat Glomerular Filtration Rate 35, BUN/Creatinine Ratio 24, Glucose Level 295H, Calcium Level 8.0L, Corrected Calcium 8.6, Total Bilirubin 0.3, Aspartate Amino Transf (AST/SGOT) 14, Alanine Aminotransferase (ALT/SGPT) 15, Alkaline Phosphatase 23L, Total Protein 6.1L, Albumin 3.3 11/01/19 09:27: Glucometer 239H Microbiology 10/29/19 Urine Culture - Final, Complete 3 or more isolates 10/29/19 Blood Culture - Preliminary, Resulted No growth 10/29/19 Influenza Types A,B Antigen (JENNIFFER) - Final, Complete Assessment/Plan Assessment/Plan Assessment & Plan Influenza B Nausea and vomiting improving Acute renal failure Diabetes mellitus type II Hypertension On Tamiflu Continue clear liquid diet Clinical Quality Measures DVT/VTE Risk/Contraindication: Risk Factor Score Per Nursin RFS Level Per Nursing on Admit: 4+=Very High KRISTINE TESFAYE MD 11/01/19 8918: Assessment/Plan Assessment/Plan Assessment & Plan See Discharge [facility] Supervisory-Addendum Brief Verification & Attestation Participated in pt care: history Personally performed: exam Care discussed with: Medical Student Procedures: n/a Verification and Attestation of Medical Student E/M Service A medical student performed and documented this service in my presence. I reviewed and verified all information documented by the medical student and made modifications to such information, when appropriate. I personally performed the physical exam and medical decision making. Kristine Tesfaye, Nov 01, 2019,21:57 ALBERT PERRY,MED STUDENT Nov 01, 2019 10:57 KRISTINE TESFAYE MD Nov 01, 2019 21:58
[2019-11-01] MEDS ORDERED: HYDR-3923 PO (11:19)
[2019-11-01] MEDS ORDERED: METR-145 PO (11:22)
[2019-11-01] MEDS ORDERED: ATOR20TA66 PO (11:26)
[2019-11-01] MEDS ORDERED: DOXA4TAB2 PO (11:29)
--- NOTE | 2019-11-01 11:29 | NUR ---
SPOKE WITH THE PT WELL GOING THRU THE EXT MED HISTORY TO COMPLETE THE MED REC. PT WAS RECENTLY DISCHARGED , I LOOKED BACK THRU THAT STAY AND FOUND [facility] HAD FAXED OVER THE PT PROFILE. I COMPARED THAT FAX WITH WHAT WE HAD IN THERE TO GET A BETTER PICTURE. I TOOK OFF ELDERBERRY, VIT C AND VIT D- THE PT SAID IT HAS BEEN QUITE AWHILE SINCE SHE HAS TAKEN ANY OF THOSE. METRONIDAZOLE 500MG: FILLED ON 10-25-2019 #6 /3 DAY SUPPLY. HOWEVER THE PT SAID SHE STILL HAD SOME AND HAD NOT TAKEN THEM ALL DUE TO HER FEELING ILL. OTC MEDS: TYLENOL PRN
--- NOTE | 2019-11-01 12:16 | Discharge Summary ---
Diagnosis/Chief Complaint Date of Admission Oct 29, 2019 at 23:45 Date of Discharge 11/01/2019 Admission Diagnosis Admission Diagnosis Inf B N/V ARF IDDM Discharge Diagnosis See Above Discharge Summary-Simple/Stand Consultations Discharge Physical Examination Allergies: Coded Allergies: metronidazole (Unverified Allergy, Mild, RASH, 10/30/19) MACULAR RASH amlodipine (Verified Allergy, Unknown, 10/25/19) clarithromycin (Verified Allergy, Unknown, 10/21/19) hydrocodone (Verified Allergy, Unknown, 10/21/19) Vitals & I&Os Vital Sign - Last 12Hours Date Time Temp Pulse Resp B/P (MAP) Pulse Ox O2 Delivery O2 Flow Rate FiO2 11/01/19 08:00 36.3 80 18 116/59 (78) 98 Room Air Intake and Output 11/01/19 00:00 Intake Total 2580 ml Balance 2580 ml General Appearance: Alert, Oriented X3, Cooperative, No Acute Distress Respiratory: Clear to Auscultation, Normal Air Movement Cardiovascular: Regular Rate, No Murmurs Abdominal: Normal Bowel Sounds, Soft, No Masses, Other (mild epigastic ttp, no rebound or gaurding) Extremities: No Edema, No Tenderness/Swelling Skin: No Rashes, No Breakdown Neuro: Normal Speech, Strength at 5/5 X4 Ext, Sensation Intact, Cranial Nerves 3-12 NL Psych/Mental Status: Mental Status NL, Mood NL Hospital Course See final discharge diagnosis. Other pending tests - CONSIDER GASTRIC EMPTYING STUDY FOR POSSIBLE GASTROPARESIS Discussion & Recommendations 49 YO F admitted with flu B and N/V. Patient was started on tamiflu and given IV fluids. She is now improved to baseline but still having some dry heaves. Would recommend following up with PCP closely for possible gastroparesis and may need gastric emptying study. Discharge Condition at discharge stable Instructions to patient/family Please see electronic discharge instructions given to patient. Discharge Medications Reviewed and agree with Discharge Medication list on patient's Discharge Instruction sheet Clinical Quality Measures DVT/VTE Risk/Contraindication: Risk Factor Score Per Nursin RFS Level Per Nursing on Admit: 4+=Very High KRISTINE GUZMAN MD Nov 01, 2019 12:16
[2019-11-01] MEDS ORDERED: GBPN600T PO (12:22)
[2019-11-01] MEDS ORDERED: GUAI600T43 PO (12:22)
[2019-11-01] MEDS ORDERED: ONDA8TAB6 PO (12:22)
[2019-11-01] MEDS ORDERED: OSEL30CA PO (12:22)
--- NOTE | 2019-11-01 12:24 | Discharge Instructions ---
Discharge [facility] Reconcile Patient Problems Problems Reviewed?: Yes Discharge Medications New, Converted or Re-Newed RX: Transmitted to Pharmacy New Medications: Ondansetron HCl (Zofran) 8 Mg Tablet 8 MG PO Q6H PRN for NAUSEA/VOMITING-1ST LINE, #15 TAB Gabapentin (Gabapentin) 600 Mg Tablet 600 MG PO TID, #90 TAB Guaifenesin (Mucinex) 600 Mg Tab.er.12h 600 MG PO BID, #14 TAB Oseltamivir Phosphate (Tamiflu) 30 Mg Capsule 30 MG PO BID for 4 Days, CAP relabel Continued Medications: Acetaminophen (Tylenol Extra Strength) 500 Mg Tablet 500-1000 MG PO Q6H PRN for PAIN-MILD, TAB Albuterol Sulfate (Ventolin Hfa) 1 Puff Puff 2 PUFF IH Q6H PRN for SHORTNESS OF BREATH, INHALER Atorvastatin Calcium (Atorvastatin Calcium) 20 Mg Tablet 20 MG PO HS, TAB Doxazosin Mesylate (Doxazosin Mesylate) 4 Mg Tablet 4 MG PO HS, TAB Fluoxetine HCl (Prozac) 20 Mg Capsule 20 MG PO HS, CAP Hydralazine HCl (Hydralazine HCl) 25 Mg Tablet 25 MG PO TID, TAB Insulin Detemir (Levemir Flextouch) 100 Unit/1 Ml Insuln.pen 30 UNIT SQ BID PRN for WHEN REMEMBERS, EA LAST FILLED 11-23-18 - ADMITS SHE DOES NOT USE REGULARLY Insulin Lispro (Humalog Kwikpen) 100 Unit/1 Ml Insuln.pen 30 UNIT SQ TIDAC, EA Lactulose (Lactulose) 10 Gm/15 Ml Solution 15 ML PO TID PRN for CONSTIPATION-3RD LINE, EA Metoprolol Succinate (Metoprolol Succinate) 100 Mg Tab.er.24h 100 MG PO DAILY, TAB Metronidazole (Metronidazole) 500 Mg Tablet 500 MG PO BID, TAB FILLED 10-25-2019 #6 / 3 DAY SUPPLY Discontinued Medications: Gabapentin (Gabapentin) 600 Mg Tablet 1200 MG PO TID, TAB TAKES 2 (600MG) TABLETS Activity & Diet Discharge Diet: ADA Diet Activity as Tolerated: Yes Orders-Post D/C & Referrals Pneu Vac Indicated: Yes Copy Copies To 1: ALVA BENTLEY MD, HOLLY R MD Nov 01, 2019 12:24
[2019-11-01 12:30] VITALS: BP 116/59
== END 2019-11-01 13:14 | disposition home or self-care (01) | DRG 866 ==
LOC: EDUNIT# 21:21 → ER 21:23 → 4TH 23:45
PROVIDERS: ADMIT Internal Medicine; ATTEND Internal Medicine
DX: J10.2 Influenza due to other identified influenza virus with gastrointestinal manifestations (principal); R11.2 Nausea with vomiting, unspecified; N17.9 Acute kidney failure, unspecified; I12.9 Hypertensive chronic kidney disease with stage 1 through stage 4 chronic kidney disease, or unspecified chronic kidney disease; N18.9 Chronic kidney disease, unspecified; E86.0 Dehydration; E11.65 Type 2 diabetes mellitus with hyperglycemia; E11.319 Type 2 diabetes mellitus with unspecified diabetic retinopathy without macular edema; E11.42 Type 2 diabetes mellitus with diabetic polyneuropathy; E11.43 Type 2 diabetes mellitus with diabetic autonomic (poly)neuropathy; E87.5 Hyperkalemia; E66.01 Morbid (severe) obesity due to excess calories; F41.9 Anxiety disorder, unspecified; J30.2 Other seasonal allergic rhinitis; K21.9 Gastro-esophageal reflux disease without esophagitis; H35.30 Unspecified macular degeneration; Z68.37 Body mass index [BMI] 37.0-37.9, adult; Z79.4 Long term (current) use of insulin
CPT/HCPCS: 36415; 71045; 71046; 80053; 81000; 82150; 82805; 82962; 83605; 83690; 83735; 84100; 85025; 85610; 85730; 87040; 87088; 87804; 93005; 96374; 96375

== ENCOUNTER → 2019-11-03 | Outpatient (CLI) | payer OTHER ==
[~2019-11-03] MED LIST changes: +ATOR20TA66 PO; +GUAI600T43 PO; +ONDA8TAB6 PO; +OSEL30CA PO
== END ==
LOC: WOUNDCARE 10:57
PROVIDERS: ATTEND Orthopaedic Surgery Hand Surgery
DX: E11.621 Type 2 diabetes mellitus with foot ulcer (principal); E11.42 Type 2 diabetes mellitus with diabetic polyneuropathy; E11.65 Type 2 diabetes mellitus with hyperglycemia; L97.522 Non-pressure chronic ulcer of other part of left foot with fat layer exposed
CPT/HCPCS: 97597

== ENCOUNTER → 2019-11-10 | Outpatient (CLI) | payer OTHER | LOC: WOUNDCARE 10:31 | PROVIDERS: ATTEND Orthopaedic Surgery Hand Surgery | DX: E11.621 Type 2 diabetes mellitus with foot ulcer (principal); E11.42 Type 2 diabetes mellitus with diabetic polyneuropathy; E11.65 Type 2 diabetes mellitus with hyperglycemia; L84 Corns and callosities | CPT/HCPCS: 99212 ==

== ENCOUNTER 2019-11-27 15:30 | Emergency (ER) | payer OTHER ==
[~2019-11-27] VITALS: Ht 165 cm; Wt 104.0 kg
[2019-11-27] MEDS ORDERED: KETOROLAC 60 MG/2 ML VIAL IM STA (16:25)
[2019-11-27] MEDS ORDERED: ORPHENADRINE 60 MG/2 ML (NORFLEX) AMP IM ONE (16:30)
--- NOTE | 2019-11-27 16:44 | ED Back Pain ---
General Chief Complaint: Lower Extremity Stated Complaint: BACK/LEFT LEG PAIN Nursing Triage Note: THE PT IS AMBULATORY TO THE ROOM WITHOUT DIFFICULTY. NO DISTRESS IS SEEN ON ARRIVAL. LOC IS NORMAL FOR THE PT. THE PT C/O OD LEFT LEG PAIN TODAY. NO RECENT INJURY IS BEING REPORTED. Nursing Sepsis Screen: No Definite Risk History of Present Illness Date Seen by Provider: Nov 27, 2019 Time Seen by Provider: 16:15 Initial Comments 49-year-old female presents for low back and left leg pain. She reports that approximately 3:00 AM today she began having pain. She has been treating it conservatively without any medication. She did take gabapentin approximately 2 hours prior to arrival. She has chronically been told of a degenerative disc with herniation in her low back she was supposed to do physical therapy approximately one year ago but never was able to. She has never seen an orthopedic surgeon or spine surgeon. She denies any bowel or bladder incontinence or retention. Timing/Duration: 12 Hours Severity: Moderate (tearful) Radiation: Buttocks, Lower Legs, Upper Legs Method of Injury: Unknown Associated Symptoms: muscle spasms, numbness in legs/feet (left), lower back pain; No loss of bladder control, No loss of bowel control Allergies and Home Medications Allergies Coded Allergies: metronidazole (Unverified Allergy, Mild, RASH, 10/30/19) MACULAR RASH amlodipine (Verified Allergy, Unknown, 10/25/19) clarithromycin (Verified Allergy, Unknown, 10/21/19) hydrocodone (Verified Allergy, Unknown, 10/21/19) Home Medications Acetaminophen 500 Mg Tablet, 500-1,000 MG PO Q6H PRN for PAIN-MILD, (Reported) Albuterol Sulfate 1 Puff Puff, 2 PUFF IH Q6H PRN for SHORTNESS OF BREATH, (Reported) Atorvastatin Calcium 20 Mg Tablet, 20 MG PO HS, (Reported) Doxazosin Mesylate 4 Mg Tablet, 4 MG PO HS, (Reported) Fluoxetine HCl 20 Mg Capsule, 20 MG PO HS, (Reported) Gabapentin 600 Mg Tablet, 600 MG PO TID Prescribed by: KRISTINE GUZMAN on 11/01/19 1222 Guaifenesin 600 Mg Tab.er.12h, 600 MG PO BID Prescribed by: KRISTINE GUZMAN on 11/01/19 1222 Hydralazine HCl 25 Mg Tablet, 25 MG PO TID, (Reported) Insulin Detemir 100 Unit/1 Ml Insuln.pen, 30 UNIT SQ BID PRN for WHEN REMEMBERS, (Reported) LAST FILLED 11-23-18 - ADMITS SHE DOES NOT USE REGULARLY Insulin Lispro 100 Unit/1 Ml Insuln.pen, 30 UNIT SQ TIDAC, (Reported) Lactulose 10 Gm/15 Ml Solution, 15 ML PO TID PRN for CONSTIPATION-3RD LINE, (Reported) Metoprolol Succinate 100 Mg Tab.er.24h, 100 MG PO DAILY, (Reported) Metronidazole 500 Mg Tablet, 500 MG PO BID, (Reported) FILLED 10-25-2019 #6 / 3 DAY SUPPLY Ondansetron HCl 8 Mg Tablet, 8 MG PO Q6H PRN for NAUSEA/VOMITING-1ST LINE Prescribed by: KRISTINE GUZMAN on 11/01/19 1222 Oseltamivir Phosphate 30 Mg Capsule, 30 MG PO BID relabel Prescribed by: KRISTINE GUZMAN on 11/01/19 1222 Patient Home Medication List Home Medication List Reviewed: Yes Review of Systems Constitutional: no symptoms reported, see HPI Musculoskeletal: see HPI, back pain All Other Systems Reviewed Negative Unless Noted: Yes Past Wxpszyd-Dhczeg-Azilla Hx Past Med/Social Hx: Reviewed Nursing Past Med/Soc Hx Patient Social History Alcohol Use: Denies Use Recreational Drug Use: No 2nd Hand Smoke Exposure: No Recent Foreign Travel: No Contact w/Someone Who Travel: No Recent Infectious Disease Expo: No Recent Hopitalizations: No Physical Abuse: No Sexual Abuse: No Mistreated: No Fear: No Immunizations Up To Date Tetanus Booster (TDap): Unknown Seasonal Allergies Seasonal Allergies: Yes Past Medical History Surgeries: Yes Abdominal, Section, Eye Surgery, Orthopedic Respiratory: No Cardiac: Yes Hypertension Neurological: Yes (PERIPHERAL NEUROPATHY) Neuropathy [employer] History: Menopausal Genitourinary: No Gastrointestinal: Yes Gastroesophageal Reflux Musculoskeletal: No Endocrine: Yes Diabetes, Insulin dep HEENT: Yes (RETINOPATHY) Macular Degeneration Cancer: No Psychosocial: Yes Anxiety Integumentary: Yes (L foot wound) Recent Skin Changes Blood Disorders: No Family Medical History Asthma 19 MOTHER G8 BROTHER G8 BROTHER Cardiovascular disease 19 FATHER G8 BROTHER Diabetes mellitus G8 BROTHER G8 BROTHER Kidney disease G8 BROTHER Myocardial infarction 19 FATHER Respiratory disorder G8 BROTHER No Pertinent Family Hx Physical Exam Vital Signs Vital Signs - First Documented 11/27/19 16:03 Temp 36.8 Pulse 96 Resp 18 B/P (MAP) 200/100 (133) Capillary Refill : Less Than 3 Seconds Height, Weight, BMI Height: 5'5.00" Weight: 221lbs. 4.8oz. 100.014602fo; 38.00 BMI Method:Stated General Appearance: WD/WN, Mild Distress (secondary to pain) Neck: Full Range of Motion, Normal Inspection, Non Tender, Supple Cardiovascular: Regular Rate, Rhythm, No Edema, No Murmur, Normal Peripheral Pulses Respiratory: Chest Non Tender, Lungs Clear, Normal Breath Sounds Back: Normal Inspection, Decreased Range of Motion (secondary to pain), Muscle Spasm, Vertebral Tenderness (. Thoracic), Other (Power V/V L4-S1 bilat. + SLR) Extremity: Normal Capillary Refill, Normal Inspection, Normal Range of Motion Neurologic/Psychiatric: Alert, Oriented x3, No Motor/Sensory Deficits, Normal Mood/Affect Skin: Normal Color, Warm/Dry Lymphatic: No Adenopathy Progress/Results/Core Measures Results/Orders My Orders Orders - FRANNY KEEN Drug Screen Stat (Urine) (11/27/19 16:05) Ua Culture If Indicated (11/27/19 16:05) Orphenadrine Injection (Norflex Injectio (11/27/19 16:30) Ketorolac Injection (Toradol Injection) (11/27/19 16:25) Lumbar Spine - 2-3 Views (11/27/19 16:26) Medications Given in ED Current Medications Medications Dose Ordered Sig/Arlet Route Start Time Stop Time Status Last Admin Dose Admin Orphenadrine Citrate 60 mg ONCE ONCE IM 11/27/19 16:30 11/27/19 16:31 DC 11/27/19 16:47 60 MG Vital Signs/I&O 11/27/19 16:03 Temp 36.8 Pulse 96 Resp 18 B/P (MAP) 200/100 (133) Blood Pressure Mean: 133 Diagnostic Imaging Diagonstic Imaging: Xray Plain Films/CT/US/NM/MRI: other (L spine) Comments NAME: [facility] REC#: [id number] PT STATUS: REG ER : 1970 PHYSICIAN: FRANNY KEEN ADMIT DATE: 11/27/19/ER Signed Date of Exam:11/27/19 LUMBAR SPINE - 2-3 VIEWS INDICATION: Low back pain radiating to left leg. COMPARISON: None available. TECHNIQUE: Three views of the lumbar spine were obtained. FINDINGS: Normal lordosis in lumbar spine. There is approximately 5 mm of anterolisthesis of L4 on L5 and this appears due to facet osteoarthritis. Vertebral bodies are normal in stature. There is no vertebral body or posterior element ankylosis. SI joints are normal in appearance. All degenerative disc space narrowing at L4-L5. Other intervertebral disc space heights are preserved. IMPRESSION: 1. No features of acute osseous abnormality in the lumbar spine. 2. Grade 1 anterolisthesis of L4 on L5 which appears to be due to facet osteoarthritis. Dictated by: Dictated on workstation # [id number] Dict: 11/27/191643 Trans: 11/27/191653 PJE [id number] Interpreted by: FATUMA SALVADOR MD Electronically signed by: FATUMA SALVADOR MD 11/27/191653 Reviewed: Reviewed by Me Departure Impression Primary Impression: Left lumbar radiculopathy Additional Impression: Low back pain Qualified Codes: M54.42 - Lumbago with sciatica, left side Disposition: 01 HOME, SELF-CARE Condition: Stable Departure-Patient Inst. Decision time for Depature: 17:00 Referrals: ALVA BENTLEY MD (PCP/Family) Primary Care Physician Patient Instructions: Low Back Pain (DC), Radiculopathy (DC) Add. Discharge Instructions: Alternate heat and ice to your low back for 20 minutes at a time. Use the cyclobenzaprine every 8 hours as needed for muscle spasms. Continue to use her gabapentin as prescribed. Follow up with your primary care provider consider seeing a spine or orthopedic surgeon if your back pain is not improved. You may take ibuprofen 600 mg every 8 hours as needed for pain. Avoid sitting or standing in one position for any prolonged period of time, walking or lying position for your back. Take prednisone as prescribed. Return to the emergency department for new, urgent health care needs. All discharge instructions reviewed with patient and/or family. Voiced understanding. Scripts Prednisone (Prednisone) 20 Mg Tab 40 MG PO DAILY, #6 TAB 0 Refills Prov: FRANNY KEEN 11/27/19 Cyclobenzaprine HCl (Cyclobenzaprine HCl) 10 Mg Tablet 10 MG PO Q8H PRN for SPASMS, #15 TAB 0 Refills Prov: FRANNY KEEN 11/27/19 FRANNY KEEN Nov 27, 2019 16:44
--- NOTE | 2019-11-27 16:54 | Diagnostic Imaging Report ---
INDICATION: Low back pain radiating to left leg. COMPARISON: None available. TECHNIQUE: Three views of the lumbar spine were obtained. FINDINGS: Normal lordosis in lumbar spine. There is approximately 5 mm of anterolisthesis of L4 on L5 and this appears due to facet osteoarthritis. Vertebral bodies are normal in stature. There is no vertebral body or posterior element ankylosis. SI joints are normal in appearance. All degenerative disc space narrowing at L4-L5. Other intervertebral disc space heights are preserved. IMPRESSION: 1. No features of acute osseous abnormality in the lumbar spine. 2. Grade 1 anterolisthesis of L4 on L5 which appears to be due to facet osteoarthritis. Dictated by: Dictated on workstation # [id number]
[2019-11-27 16:59] LABS: BILIRUBIN,URINE NEGATIVE (NEGATIVE); CLARITY,URINE CLEAR; COLOR,URINE YELLOW; GLUCOSE, URINE (UA) 3+ (NEGATIVE); KETONES,URINE NEGATIVE (NEGATIVE); LEUKOCYTE ESTERASE ,URINE NEGATIVE (NEGATIVE); NITRITE,URINE NEGATIVE (NEGATIVE); PROTEIN,URINE 2+ (NEGATIVE)
[2019-11-27] MEDS ORDERED: PRD20T PO (17:01)
[2019-11-27] MEDS ORDERED: CYCL10TA9 PO (17:01)
[2019-11-27 17:12] LABS: BACTERIA,URINE NEGATIVE /HPF; RBC,URINE RARE /HPF; SQUAMOUS EPITHELIAL CELL,UR RARE /HPF
[2019-11-27 17:13] LABS: AMPHETAMINE SCREEN, URINE NEGATIVE (NEGATIVE); BARBITURATE SCREEN URINE NEGATIVE (NEGATIVE); BENZODIAZEPINES SCREEN URINE NEGATIVE (NEGATIVE); CANNABINOID SCREEN, URINE NEGATIVE (NEGATIVE); COCAINE SCREEN URINE NEGATIVE (NEGATIVE); METHADONE STAT NEGATIVE (NEGATIVE); METHAMPHETAMINE SCREEN URINE S NEGATIVE (NEGATIVE); OPIATE SCREEN URINE NEGATIVE (NEGATIVE); OXYCODONE STAT NEGATIVE (NEGATIVE); PROPOXYPHENE STAT NEGATIVE (NEGATIVE); TRICYCLIC ANTIDEPRESSANTS SCRE NEGATIVE (NEGATIVE)
[2019-11-27 17:14] VITALS: BP 200/100
== END 2019-11-27 17:17 | disposition home or self-care (01) ==
LOC: EDUNIT# 15:30 → ER 15:32
DX: M54.16 Radiculopathy, lumbar region (principal); E11.42 Type 2 diabetes mellitus with diabetic polyneuropathy; I10 Essential (primary) hypertension; E11.319 Type 2 diabetes mellitus with unspecified diabetic retinopathy without macular edema; F41.9 Anxiety disorder, unspecified; Z88.8 Allergy status to other drugs, medicaments and biological substances; Z88.1 Allergy status to other antibiotic agents; Z88.5 Allergy status to narcotic agent; Z79.4 Long term (current) use of insulin; Z82.49 Family history of ischemic heart disease and other diseases of the circulatory system
CPT/HCPCS: 72100; 80306; 81000; 96372

== ENCOUNTER → 2019-12-14 | Outpatient (CLI) | payer OTHER ==
[~2019-12-14] MED LIST changes: +PRD20T PO
== END ==
LOC: WOUNDCARE 08:36
PROVIDERS: ATTEND Surgery
DX: E11.621 Type 2 diabetes mellitus with foot ulcer (principal); L97.421 Non-pressure chronic ulcer of left heel and midfoot limited to breakdown of skin; T21.22XA Burn of second degree of abdominal wall, initial encounter; T23.202A Burn of second degree of left hand, unspecified site, initial encounter; E11.65 Type 2 diabetes mellitus with hyperglycemia
CPT/HCPCS: 99214

== ENCOUNTER 2019-12-21 10:11 | Emergency (ER) | payer OTHER ==
[~2019-12-21] VITALS: Ht 165 cm; Wt 98.0 kg
[~2019-12-21 10:11] MED LIST changes: -PROM25TA14 PO
[2019-12-21] MEDS ORDERED: NS IV 1000 ML 1,000 ML IV SCH ×2 (11:00→12:00)
[2019-12-21] MEDS ORDERED: PROMETHAZINE INJ 25 MG/ML (PHENERGAN) AMP IVP ONE (11:00)
--- NOTE | 2019-12-21 11:04 | ED GI ---
General Chief Complaint: Abdominal/GI Problems Stated Complaint: MUSCLE SPASMS;NAUSEA;DIZZINESS Source of Information: Patient Exam Limitations: No Limitations History of Present Illness Date Seen by Provider: Dec 21, 2019 Time Seen by Provider: 11:01 Initial Comments To ER with reports of abdominal muscle spasms, nausea and dizziness. She took Zofran at home without improvement. She does have some abdominal pain, she relates this to her gastroparesis. Timing/Duration: 1-2 Days Severity/Quality: Moderate Location: Generalized Abdomen Radiation: No Radiation Activities at Onset: None Associated Symptoms: Nausea/Vomiting (will) Allergies and Home Medications Allergies Coded Allergies: metronidazole (Unverified Allergy, Mild, RASH, 10/30/19) MACULAR RASH amlodipine (Verified Allergy, Unknown, 10/25/19) clarithromycin (Verified Allergy, Unknown, 10/21/19) hydrocodone (Verified Allergy, Unknown, 10/21/19) Home Medications Acetaminophen 500 Mg Tablet, 500-1,000 MG PO Q6H PRN for PAIN-MILD, (Reported) Albuterol Sulfate 1 Puff Puff, 2 PUFF IH Q6H PRN for SHORTNESS OF BREATH, (Reported) Atorvastatin Calcium 20 Mg Tablet, 20 MG PO HS, (Reported) Cyclobenzaprine HCl 10 Mg Tablet, 10 MG PO Q8H PRN for SPASMS Prescribed by: FRANNY KEEN on 11/27/19 1701 Doxazosin Mesylate 4 Mg Tablet, 4 MG PO HS, (Reported) Fluoxetine HCl 20 Mg Capsule, 20 MG PO HS, (Reported) Gabapentin 600 Mg Tablet, 600 MG PO TID Prescribed by: KRISTINE GUZMAN on 11/01/19 1222 Guaifenesin 600 Mg Tab.er.12h, 600 MG PO BID Prescribed by: KRISTINE GUZMAN on 11/01/19 1222 Hydralazine HCl 25 Mg Tablet, 25 MG PO TID, (Reported) Insulin Detemir 100 Unit/1 Ml Insuln.pen, 30 UNIT SQ BID PRN for WHEN REMEMBERS, (Reported) LAST FILLED 11-23-18 - ADMITS SHE DOES NOT USE REGULARLY Insulin Lispro 100 Unit/1 Ml Insuln.pen, 30 UNIT SQ TIDAC, (Reported) Lactulose 10 Gm/15 Ml Solution, 15 ML PO TID PRN for CONSTIPATION-3RD LINE, (Reported) Metoprolol Succinate 100 Mg Tab.er.24h, 100 MG PO DAILY, (Reported) Metronidazole 500 Mg Tablet, 500 MG PO BID, (Reported) FILLED 10-25-2019 #6 / 3 DAY SUPPLY Ondansetron HCl 8 Mg Tablet, 8 MG PO Q6H PRN for NAUSEA/VOMITING-1ST LINE Prescribed by: KRISTINE GUZMAN on 11/01/19 1222 Oseltamivir Phosphate 30 Mg Capsule, 30 MG PO BID relabel Prescribed by: KRISTINE GUZMAN on 11/01/19 1222 Prednisone 20 Mg Tab, 40 MG PO DAILY Prescribed by: FRANNY KEEN on 11/27/19 1701 Patient Home Medication List Home Medication List Reviewed: Yes Review of Systems Review of Systems Constitutional: see HPI EENTM: No Symptoms Reported Respiratory: No Symptoms Reported Cardiovascular: No Symptoms Reported Gastrointestinal: See HPI, Abdominal Pain, Nausea Genitourinary: No Symptoms Reported Musculoskeletal: no symptoms reported Skin: no symptoms reported Psychiatric/Neurological: No Symptoms Reported Endocrine: No Symptoms Reported Hematologic/Lymphatic: No Symptoms Reported Past Kwiuklr-Eygqss-Avmktx Hx Patient Social History 2nd Hand Smoke Exposure: No Recent Foreign Travel: No Contact w/Someone Who Travel: No Recent Hopitalizations: No Immunizations Up To Date Tetanus Booster (TDap): Unknown Seasonal Allergies Seasonal Allergies: Yes Past Medical History Surgeries: Yes Abdominal, Section, Eye Surgery, Orthopedic Respiratory: No Cardiac: Yes Hypertension Neurological: Yes (PERIPHERAL NEUROPATHY) Neuropathy SHIP WIRER History: Menopausal Genitourinary: No Gastrointestinal: Yes Gastroesophageal Reflux Musculoskeletal: No Endocrine: Yes Diabetes, Insulin dep HEENT: Yes (RETINOPATHY) Macular Degeneration Cancer: No Psychosocial: Yes Anxiety Integumentary: Yes (L foot wound) Recent Skin Changes Blood Disorders: No Family Medical History Asthma 19 MOTHER G8 BROTHER G8 BROTHER Cardiovascular disease 19 FATHER G8 BROTHER Diabetes mellitus G8 BROTHER G8 BROTHER Kidney disease G8 BROTHER Myocardial infarction 19 FATHER Respiratory disorder G8 BROTHER No Pertinent Family Hx Physical Exam Vital Signs Vital Signs - First Documented 12/21/19 10:58 Temp 36.1 Pulse 69 Resp 20 B/P (MAP) 104/86 (92) Pulse Ox 98 O2 Delivery Room Air Capillary Refill : Height/Weight/BMI Height: 5'5.00" Weight: 221lbs. 4.8oz. 100.604590ip; 38.00 BMI Method:Stated General Appearance: WD/WN, no apparent distress HEENT: PERRL/EOMI, normal ENT inspection Neck: non-tender, full range of motion Respiratory: no respiratory distress, no accessory muscle use Cardiovascular: regular rate, rhythm, no murmur Gastrointestinal: normal bowel sounds, non tender, soft Extremities: normal range of motion, non-tender Neurologic/Psychiatric: alert, normal mood/affect, oriented x 3 Skin: normal color, warm/dry Progress/Results/Core Measures Results/Orders Lab Results Laboratory Tests Test 12/21/19 11:05 12/21/19 11:10 Range/Units White Blood Count 7.7 4.3-11.0 10^3/uL Red Blood Count 4.07 L 4.35-5.85 10^6/uL Hemoglobin 11.6 11.5-16.0 G/DL Hematocrit 35 35-52 % Mean Corpuscular Volume 85 80-99 FL Mean Corpuscular Hemoglobin 29 25-34 PG Mean Corpuscular Hemoglobin Concent 33 32-36 G/DL Red Cell Distribution Width 12.3 10.0-14.5 % Platelet Count 265 130-400 10^3/uL Mean Platelet Volume 11.4 H 7.4-10.4 FL Neutrophils (%) (Auto) 60 42-75 % Lymphocytes (%) (Auto) 33 12-44 % Monocytes (%) (Auto) 6 0-12 % Eosinophils (%) (Auto) 1 0-10 % Basophils (%) (Auto) 0 0-10 % Neutrophils # (Auto) 4.6 1.8-7.8 X 10^3 Lymphocytes # (Auto) 2.5 1.0-4.0 X 10^3 Monocytes # (Auto) 0.4 0.0-1.0 X 10^3 Eosinophils # (Auto) 0.1 0.0-0.3 10^3/uL Basophils # (Auto) 0.0 0.0-0.1 10^3/uL Sodium Level 134 L 135-145 MMOL/L Potassium Level 5.3 H 3.6-5.0 MMOL/L Chloride Level 98 98-107 MMOL/L Carbon Dioxide Level 24 21-32 MMOL/L Anion Gap 12 5-14 MMOL/L Blood Urea Nitrogen 35 H 7-18 MG/DL Creatinine 1.90 H 0.60-1.30 MG/DL Estimat Glomerular Filtration Rate 28 BUN/Creatinine Ratio 18 Glucose Level 266 H 70-105 MG/DL Calcium Level 9.8 8.5-10.1 MG/DL Corrected Calcium 9.7 8.5-10.1 MG/DL Total Bilirubin 0.4 0.1-1.0 MG/DL Aspartate Amino Transf (AST/SGOT) 11 5-34 U/L Alanine Aminotransferase (ALT/SGPT) 11 0-55 U/L Alkaline Phosphatase 30 L 40-136 U/L Total Protein 7.3 6.4-8.2 GM/DL Albumin 4.1 3.2-4.5 GM/DL Lipase 9 8-78 U/L Beta-Hydroxybutyrate (Chem panel) 0.37 H 0.00-0.27 MMOL/L Urine Color YELLOW Urine Clarity SL CLOUDY Urine pH 5.5 5-9 Urine Specific [place] >=1.030 1.016-1.022 Urine Protein 3+ H NEGATIVE Urine Glucose (UA) 1+ H NEGATIVE Urine Ketones NEGATIVE NEGATIVE Urine Nitrite NEGATIVE NEGATIVE Urine Bilirubin NEGATIVE NEGATIVE Urine Urobilinogen 0.2 < = 1.0 MG/DL Urine Leukocyte Esterase NEGATIVE NEGATIVE Urine RBC (Auto) NEGATIVE NEGATIVE Urine RBC NONE /HPF Urine WBC 0-2 /HPF Urine Squamous Epithelial Cells 10-25 H /HPF Urine Crystals NONE /LPF Urine Bacteria MODERATE H /HPF Urine Casts PRESENT /LPF Urine Hyaline Casts 2-5 H /LPF Urine Mucus SMALL H /LPF Urine Culture Indicated YES My Orders Orders - AARON RAMIREZ [employer] Cbc With Automated Diff (12/21/19 10:57) Comprehensive Metabolic Panel (12/21/19 10:57) Lipase (12/21/19 10:57) Ua Culture If Indicated (12/21/19 10:57) Ed Iv/Invasive Line Start (12/21/19 10:57) Ns Iv 1000 Ml (Sodium Chloride 0.9%) (12/21/19 11:00) Promethazine Injection (Phenergan Injec (12/21/19 11:00) Beta Hydroxybutyrate (12/21/19 11:04) Urine Culture (12/21/19 11:10) Ns Iv 1000 Ml (Sodium Chloride 0.9%) (12/21/19 12:00) Insulin (Regular) Human (Humulin R (Per (12/21/19 12:00) Medications Given in ED Current Medications Medications Dose Ordered Sig/Arlet Route Start Time Stop Time Status Last Admin Dose Admin Promethazine HCl 25 mg ONCE ONCE IVP 12/21/19 11:00 12/21/19 11:01 DC 12/21/19 11:12 25 MG Vital Signs/I&O 12/21/19 10:58 Temp 36.1 Pulse 69 Resp 20 B/P (MAP) 104/86 (92) Pulse Ox 98 O2 Delivery Room Air Departure Impression Primary Impression: Nausea & vomiting Qualified Codes: R11.2 - Nausea with vomiting, unspecified Additional Impression: Diabetes mellitus, type 2 Disposition: HOME, SELF-CARE Condition: Improved Departure-Patient Inst. Decision time for Depature: 12:14 Referrals: ALVA BENTLEY MD (PCP/Family) Primary Care Physician Patient Instructions: No Instuctions Given Add. Discharge Instructions: 1. Return to ER for any concerns 2. Follow-up with your doctor later this week for recheck. All discharge instructions reviewed with patient and/or family. Voiced understanding. Scripts Promethazine HCl (Promethazine Tablet) 25 Mg Tablet 25 MG PO Q6H PRN for NAUSEA/VOMITING, #10 TAB Prov: AARON RAMIREZ APRN 12/21/19 AARON RAMIREZ APRN Dec 21, 2019 11:04
[2019-12-21 11:17] LABS: BASOPHILS % (AUTO) 0 % (0-10); EOSINOPHILS # (AUTO) 0.1 10^3/uL (0.0-0.3); EOSINOPHILS % (AUTO) 1 % (0-10); HEMATOCRIT 35 % (35-52); HEMOGLOBIN 11.6 G/DL (11.5-16.0); LYMPHOCYTES # (AUTO) 2.5 X 10^3 (1.0-4.0); LYMPHOCYTES % (AUTO) 33 % (12-44); MEAN CORPUSCULAR HEMOGLOBIN 29 PG (25-34); MEAN CORPUSCULAR HGB CONC 33 G/DL (32-36); MEAN CORPUSCULAR VOLUME 85 FL (80-99); MEAN PLATELET VOLUME 11.4 FL (7.4-10.4); MONOCYTES # (AUTO) 0.4 X 10^3 (0.0-1.0); MONOCYTES % (AUTO) 6 % (0-12); NEUTROPHILS # (AUTO) 4.6 X 10^3 (1.8-7.8); NEUTROPHILS % (AUTO) 60 % (42-75); PLATELET COUNT 265 10^3/uL (130-400); RED CELL DISTRIBUTION WIDTH 12.3 % (10.0-14.5); WHITE BLOOD COUNT 7.7 10^3/uL (4.3-11.0)
[2019-12-21 11:18] LABS: BILIRUBIN,URINE NEGATIVE (NEGATIVE); CLARITY,URINE SL CLOUDY; COLOR,URINE YELLOW; GLUCOSE, URINE (UA) 1+ (NEGATIVE); KETONES,URINE NEGATIVE (NEGATIVE); LEUKOCYTE ESTERASE ,URINE NEGATIVE (NEGATIVE); NITRITE,URINE NEGATIVE (NEGATIVE); PH,URINE 5.5 (5-9); PROTEIN,URINE 3+ (NEGATIVE)
[2019-12-21 11:35] LABS: BACTERIA,URINE MODERATE /HPF; WBC,URINE 0-2 /HPF
[2019-12-21 11:41] LABS: ALBUMIN 4.1 GM/DL (3.2-4.5); BILIRUBIN,TOTAL 0.4 MG/DL (0.1-1.0); CALCIUM 9.8 MG/DL (8.5-10.1); CREATININE SERUM 1.9 MG/DL (0.60-1.30); POTASSIUM 5.3 MMOL/L (3.6-5.0); TOTAL PROTEIN 7.3 GM/DL (6.4-8.2)
[2019-12-21] MEDS ORDERED: inSUlin (REGULAR) HUMAN 1 UNIT/0.01 ML (CHARGE PER UNIT) IV SCH (12:00)
[2019-12-21] MEDS ORDERED: PROM25TA14 PO (12:16)
[2019-12-21 14:19] VITALS: BP 110/85
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
== END 2019-12-21 14:19 | disposition home or self-care (01) ==
LOC: EDUNIT# 10:11 → ER 10:12
DX: R11.2 Nausea with vomiting, unspecified (principal); E11.42 Type 2 diabetes mellitus with diabetic polyneuropathy; I10 Essential (primary) hypertension; K21.9 Gastro-esophageal reflux disease without esophagitis; F41.9 Anxiety disorder, unspecified; E11.319 Type 2 diabetes mellitus with unspecified diabetic retinopathy without macular edema; E11.43 Type 2 diabetes mellitus with diabetic autonomic (poly)neuropathy; K31.84 Gastroparesis; Z88.8 Allergy status to other drugs, medicaments and biological substances; Z88.1 Allergy status to other antibiotic agents; Z88.5 Allergy status to narcotic agent; Z79.4 Long term (current) use of insulin; Z82.49 Family history of ischemic heart disease and other diseases of the circulatory system
CPT/HCPCS: 36415; 80053; 81000; 82010; 82962; 83690; 85025; 87088

== ENCOUNTER → 2019-12-21 | Outpatient (CLI) | payer OTHER ==
[~2019-12-21] MED LIST changes: +PROM25TA14 PO
== END ==
LOC: WOUNDCARE 09:27
PROVIDERS: ATTEND Surgery
DX: E11.621 Type 2 diabetes mellitus with foot ulcer (principal); L97.421 Non-pressure chronic ulcer of left heel and midfoot limited to breakdown of skin; T21.22XA Burn of second degree of abdominal wall, initial encounter; T23.202A Burn of second degree of left hand, unspecified site, initial encounter; E11.65 Type 2 diabetes mellitus with hyperglycemia; E11.52 Type 2 diabetes mellitus with diabetic peripheral angiopathy with gangrene
CPT/HCPCS: 16020

== ENCOUNTER → 2019-12-28 | Outpatient (CLI) | payer OTHER ==
[~2019-12-28] MED LIST changes: +PROM25TA14 PO
== END ==
LOC: WOUNDCARE 09:43
PROVIDERS: ATTEND Surgery
DX: E11.52 Type 2 diabetes mellitus with diabetic peripheral angiopathy with gangrene (principal); E11.65 Type 2 diabetes mellitus with hyperglycemia; I96 Gangrene, not elsewhere classified; T21.22XA Burn of second degree of abdominal wall, initial encounter; T23.202A Burn of second degree of left hand, unspecified site, initial encounter
CPT/HCPCS: 16020

== ENCOUNTER 2020-02-17 16:27 | Observation (INO) | payer MEDICAID ==
[~2020-02-17] VITALS: Ht 160 cm; Wt 96.9 kg
[2020-02-17] MEDS ORDERED: NS IV 1000 ML 1,000 ML IV SCH ×3 (16:46→21:07)
--- NOTE | 2020-02-17 16:50 | NUR ---
ATTEMPT X3 FOR IV UNSUCCESSFUL.
[2020-02-17 16:57] LABS: BASOPHILS % (AUTO) 0 % (0-10); EOSINOPHILS % (AUTO) 0 % (0-10); HEMATOCRIT 35 % (35-52); HEMOGLOBIN 12.4 G/DL (11.5-16.0); LYMPHOCYTES % (AUTO) 15 % (12-44); MEAN CORPUSCULAR HEMOGLOBIN 29 PG (25-34); MEAN CORPUSCULAR HGB CONC 36 G/DL (32-36); MEAN CORPUSCULAR VOLUME 81 FL (80-99); MONOCYTES # (AUTO) 0.7 X 10^3 (0.0-1.0); MONOCYTES % (AUTO) 5 % (0-12); NEUTROPHILS # (AUTO) 10.7 X 10^3 (1.8-7.8); NEUTROPHILS % (AUTO) 80 % (42-75); PLATELET COUNT 266 10^3/uL (130-400); RED CELL DISTRIBUTION WIDTH 12.1 % (10.0-14.5); WHITE BLOOD COUNT 13.4 10^3/uL (4.3-11.0)
--- NOTE | 2020-02-17 17:00 | NUR ---
OLMAN ATTEMPTING IV ET UNSUCCESSFUL.
[2020-02-17 17:05] LABS: ALBUMIN 4.3 GM/DL (3.2-4.5); POTASSIUM 4.5 MMOL/L (3.6-5.0)
[2020-02-17 17:06] LABS: CALCIUM 9.8 MG/DL (8.5-10.1)
[2020-02-17 17:07] LABS: TOTAL PROTEIN 8.1 GM/DL (6.4-8.2)
[2020-02-17 17:09] LABS: BILIRUBIN,TOTAL 0.7 MG/DL (0.1-1.0); PROTHROMBIN TIME PATIENT 13.4 SEC (12.2-14.7)
[2020-02-17 17:11] LABS: CREATININE SERUM 2.02 MG/DL (0.60-1.30)
[2020-02-17 17:15] LABS: BILIRUBIN,URINE NEGATIVE (NEGATIVE); CLARITY,URINE CLEAR; COLOR,URINE YELLOW; GLUCOSE, URINE (UA) 3+ (NEGATIVE); KETONES,URINE 1+ (NEGATIVE); LEUKOCYTE ESTERASE ,URINE NEGATIVE (NEGATIVE); NITRITE,URINE NEGATIVE (NEGATIVE); PROTEIN,URINE 3+ (NEGATIVE)
[2020-02-17 17:25] LABS: BACTERIA,URINE TRACE /HPF; RBC,URINE >100 /HPF
[2020-02-17 17:26] LABS: HYALINE CASTS, URINE 0-2 /LPF
[2020-02-17 17:28] LABS: AMPHETAMINE SCREEN, URINE NEGATIVE (NEGATIVE); BARBITURATE SCREEN URINE NEGATIVE (NEGATIVE); BENZODIAZEPINES SCREEN URINE NEGATIVE (NEGATIVE); CANNABINOID SCREEN, URINE NEGATIVE (NEGATIVE); COCAINE SCREEN URINE NEGATIVE (NEGATIVE); METHADONE STAT NEGATIVE (NEGATIVE); METHAMPHETAMINE SCREEN URINE S NEGATIVE (NEGATIVE); OPIATE SCREEN URINE NEGATIVE (NEGATIVE); OXYCODONE STAT NEGATIVE (NEGATIVE); PROPOXYPHENE STAT NEGATIVE (NEGATIVE); TRICYCLIC ANTIDEPRESSANTS SCRE NEGATIVE (NEGATIVE)
--- NOTE | 2020-02-17 17:42 | NUR ---
REPORT GIVEN TO ELIESER LO
--- NOTE | 2020-02-17 17:49 | Diagnostic Imaging Report ---
PROCEDURE: CT head and CT cervical spine without contrast. TECHNIQUE: Multiple contiguous axial images were obtained through the brain and cervical spine without the use of intravenous contrast. Sagittal and coronal reformations through the cervical spine were then performed. Auto Exposure Controls were utilized during the CT exam to meet ALARA standards for radiation dose reduction. INDICATION: Altered mental status. Unwitnessed fall downstairs COMPARISON: None FINDINGS: CT HEAD: The ventricles and cortical sulci appear age-appropriate. There is no midline shift or mass effect. No acute intracranial hemorrhage is seen. There is no CT evidence of acute territorial ischemia. The calvarium appears intact. Visualized paranasal sinuses are clear. CT CERVICAL SPINE: Alignment of the cervical spine appears normal with no spondylolisthesis. There are moderate degenerative changes at C5-C6 and C6-C7. Vertebral body heights and disc heights otherwise appear normal. No acute fracture is seen. No bony fragments or hyperdense fluid collections are seen in the spinal canal. There is increased noise in the lower cervical spine, but no soft tissue abnormality is seen. IMPRESSION: 1. No acute intracranial hemorrhage or calvarium fracture. 2. Degenerative changes in the cervical spine with no acute osseous abnormality seen. Dictated by: Dictated on workstation # [id number]
[2020-02-17 17:53] LABS: AMYLASE 24 U/L (25-125)
[2020-02-17 18:01] LABS: MAGNESIUM 1.9 MG/DL (1.6-2.4)
[2020-02-17 18:02] LABS: LIPASE 8 U/L (8-78)
--- NOTE | 2020-02-17 18:02 | ED Neurological Problem ---
General Chief Complaint: Altered Mental Status Stated Complaint: SUGARS HIGH, N/V,UNCOHERENT Nursing Triage Note: WENT TO WAITING ROOM TO GET PT. PT WALKING OUT THE DOOR TRYING TO FOLLOW FAMILY. PT UNABLE TO TELL ME HER NAME ALL SHE STATES IS HER STOMACH HURTS. VERY JITTERY. PERSON AT THE DOOR REPORTS BEING TOLD IT MIGHT BE A BLOOD SUGAR PROBLEM. FRANNY UNABLE TO CONTACT FAMILY BY PHONE. RIGHT ARM CONTRACTED UP. Nursing Sepsis Screen: No Definite Risk History of Present Illness Date Seen by Provider: February 17, 2020 Time Seen by Provider: 16:40 Initial Comments 49 year old female brought by her daughter for altered mental status. Daughter called to obtain history, patient is poor historian. She is an insulin- dependent diabetic who is noncompliant with her medication for DM, HTN, Mental Health. Her daughter reports that yesterday she was watching her grandchildren when she fell down a flight of stair, approximately 1300. She denies loss of consciousness, neck pain or back pain. Her daughter reports she began having nausea and vomiting last evening and today. Her glucose was 600 at 1440, they gave 17 units of Humalog at 1500, came down to 500. She is on cymbalta but doesn't take it as prescribed. Does not take her blood pressure medicine daily. Multiple amputations of toes, secondary to uncontrolled DM. Daughter reports at 0700 today, the patient had normal mental status, she was up and vomiting. At 1400, her daughter returned home and she had altered mental status. Unknown last well time. Timing/Duration: 4-6 hours Associated Symptoms: confusion; No loss of consciousness; nausea/vomiting; No numbness in legs/feet, No paresthesia, No seizures, No sleepy, No slurred speech; trouble walking, weakness Allergies and Home Medications Allergies Coded Allergies: metronidazole (Unverified Allergy, Mild, RASH, 10/30/19) MACULAR RASH amlodipine (Verified Allergy, Unknown, 10/25/19) clarithromycin (Verified Allergy, Unknown, 10/21/19) hydrocodone (Verified Allergy, Unknown, 10/21/19) Home Medications Acetaminophen 500 Mg Tablet, 500-1,000 MG PO Q6H PRN for PAIN-MILD, (Reported) Albuterol Sulfate 1 Puff Puff, 2 PUFF IH Q6H PRN for SHORTNESS OF BREATH, (Repor devan) Atorvastatin Calcium 20 Mg Tablet, 20 MG PO HS, (Reported) Cyclobenzaprine HCl 10 Mg Tablet, 10 MG PO Q8H PRN for SPASMS Prescribed by: FRANNY KEEN on 11/27/19 170 Doxazosin Mesylate 4 Mg Tablet, 4 MG PO HS, (Reported) Fluoxetine HCl 20 Mg Capsule, 20 MG PO HS, (Reported) Gabapentin 600 Mg Tablet, 600 MG PO TID Prescribed by: KRISTINE GUZMAN on 11/01/19 122 Guaifenesin 600 Mg Tab.er.12h, 600 MG PO BID Prescribed by: KRISTINE GUZMAN on 11/01/19 122 Hydralazine HCl 25 Mg Tablet, 25 MG PO TID, (Reported) Insulin Detemir 100 Unit/1 Ml Insuln.pen, 30 UNIT SQ BID PRN for WHEN REMEMBERS, (Reported) LAST FILLED 11-23-18 - ADMITS SHE DOES NOT USE REGULARLY Insulin Lispro 100 Unit/1 Ml Insuln.pen, 30 UNIT SQ TIDAC, (Reported) Lactulose 10 Gm/15 Ml Solution, 15 ML PO TID PRN for CONSTIPATION-3RD LINE, (Reported) Metoprolol Succinate 100 Mg Tab.er.24h, 100 MG PO DAILY, (Reported) Metronidazole 500 Mg Tablet, 500 MG PO BID, (Reported) FILLED 10-25-2019 #6 / DAY SUPPLY Ondansetron HCl 8 Mg Tablet, 8 MG PO Q6H PRN for NAUSEA/VOMITING-1ST LINE Prescribed by: KRISTINE GUZMAN on 11/01/19 122 Oseltamivir Phosphate 30 Mg Capsule, 30 MG PO BID relabel Prescribed by: KRISTINE GUZMAN on 11/01/19 122 Prednisone 20 Mg Tab, 40 MG PO DAILY Prescribed by: FRANNY KEEN on 11/27/19 170 Promethazine HCl 25 Mg Tablet, 25 MG PO Q6H PRN for NAUSEA/VOMITING Prescribed by: AARON RAMIREZ on 12/21/19 1216 Patient Home Medication List Home Medication List Reviewed: Yes Review of Systems Review of Systems Constitutional: see HPI, malaise, weakness Eyes: No Symptoms Reported, See HPI Ears, Nose, Mouth, Throat: no symptoms reported, see HPI Respiratory: no symptoms reported, see HPI; No cough Cardiovascular: no symptoms reported, see HPI; No chest pain Gastrointestinal: see HPI, nausea, vomiting Genitourinary: no symptoms reported, see HPI All Other Systems Reviewed Negative Unless Noted: Yes Past Iyucihk-Rgjowr-Hhtfna Hx Past Med/Social Hx: Reviewed Nursing Past Med/Soc Hx Patient Social History 2nd Hand Smoke Exposure: No Recent Foreign Travel: No Contact w/Someone Who Travel: No Recent Infectious Disease Expo: No Recent Hopitalizations: No Immunizations Up To Date Tetanus Booster (TDap): Unknown Seasonal Allergies Seasonal Allergies: Yes Past Medical History Surgeries: Yes Abdominal, Section, Eye Surgery, Orthopedic Respiratory: No Cardiac: Yes Hypertension Neurological: Yes (PERIPHERAL NEUROPATHY) 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 Genitourinary: No Gastrointestinal: Yes Gastroesophageal Reflux Musculoskeletal: No Endocrine: Yes Diabetes, Insulin dep HEENT: Yes (RETINOPATHY) Macular Degeneration Cancer: No Psychosocial: Yes Anxiety Integumentary: Yes (L foot wound) Recent Skin Changes Blood Disorders: No Family Medical History Asthma 19 MOTHER G8 BROTHER G8 BROTHER Cardiovascular disease 19 FATHER G8 BROTHER Diabetes mellitus G8 BROTHER G8 BROTHER Kidney disease G8 BROTHER Myocardial infarction 19 FATHER Respiratory disorder G8 BROTHER No Pertinent Family Hx Physical Exam Vital Signs Vital Signs - First Documented 02/17/20 16:40 Temp 36.2 Pulse 114 Resp 20 B/P (MAP) 140/114 (123) Pulse Ox 100 O2 Delivery Room Air Capillary Refill : Less Than 3 Seconds Height, Weight, BMI Height: 5'5.00" Weight: 221lbs. 4.8oz. 100.393947vd; 28.00 BMI Method:Stated General Appearance: WD/WN, mild distress HEENT: PERRL/EOMI, normal ENT inspection, TMs normal, pharynx normal, other (no facial drooping, expressive aphasia noted. Follows simple commands and answers some questions appropriately. ) Neck: non-tender, full range of motion, supple, normal inspection Respiratory: chest non-tender, lungs clear, normal breath sounds, no respiratory distress Cardiovascular: normal peripheral pulses, regular rate, rhythm, no edema, no murmur, tachycardia Gastrointestinal: normal bowel sounds, non tender, soft; No distended, No guarding, No rebound, No tenderness Back: normal inspection, no CVA tenderness, no vertebral tenderness Extremities: normal range of motion, non-tender, normal inspection, no pedal edema, normal capillary refill, pelvis stable, other (Patient holds right UE in flexed position, has full passive ROM, no crepitus or tenderness when palpated. ) Neurologic/Psychiatric: deaf/hard of hearing specialist II-XII nml as tested, no motor/sensory deficits, alert, normal mood/affect; No oriented x 3 (oriented to person and place, can't state month or year. ) Crainal Nerves: normal hearing; No normal speech (expressive aphasia) Coordination/Gait: abnormal gait (weakness and required nurse to assist and verbally encourage walking to room, unstable gait. ) Motor/Sensory: no motor deficit (no defecit specifically, follows some verbal commands and unable to complete others. Expressive aphasia noted. ), no sensory deficit Skin: normal color, warm/dry Progress/Results/Core Measures Results/Orders Lab Results Laboratory Tests Test 02/17/20 16:42 02/17/20 16:50 02/17/20 16:55 02/17/20 18:48 Range/Units Glucometer 455 *H 357 H 70-110 MG/DL White Blood Count 13.4 H 4.3-11.0 10^3/uL Red Blood Count 4.28 L 4.35-5.85 10^6/uL Hemoglobin 12.4 11.5-16.0 G/DL Hematocrit 35 35-52 % Mean Corpuscular Volume 81 80-99 FL Mean Corpuscular Hemoglobin 29 25-34 PG Mean Corpuscular Hemoglobin Concent 36 32-36 G/DL Red Cell Distribution Width 12.1 10.0-14.5 % Platelet Count 266 130-400 10^3/uL Mean Platelet Volume 12.0 H 7.4-10.4 FL Neutrophils (%) (Auto) 80 H 42-75 % Lymphocytes (%) (Auto) 15 12-44 % Monocytes (%) (Auto) 5 0-12 % Eosinophils (%) (Auto) 0 0-10 % Basophils (%) (Auto) 0 0-10 % Neutrophils # (Auto) 10.7 H 1.8-7.8 X 10^3 Lymphocytes # (Auto) 2.0 1.0-4.0 X 10^3 Monocytes # (Auto) 0.7 0.0-1.0 X 10^3 Eosinophils # (Auto) 0.0 0.0-0.3 10^3/uL Basophils # (Auto) 0.0 0.0-0.1 10^3/uL Prothrombin Time 13.4 12.2-14.7 SEC INR Comment 1.0 0.8-1.4 Activated Partial Thromboplast Time 25 24-35 SEC Sodium Level 125 *L 135-145 MMOL/L Potassium Level 4.5 3.6-5.0 MMOL/L Chloride Level 89 L 98-107 MMOL/L Carbon Dioxide Level 19 L 21-32 MMOL/L Anion Gap 17 H 5-14 MMOL/L Blood Urea Nitrogen 37 H 7-18 MG/DL Creatinine 2.02 H 0.60-1.30 MG/DL Estimat Glomerular Filtration Rate 26 BUN/Creatinine Ratio 18 Glucose Level 449 *H 70-105 MG/DL Calcium Level 9.8 8.5-10.1 MG/DL Corrected Calcium 9.6 8.5-10.1 MG/DL Magnesium Level 1.9 1.6-2.4 MG/DL Total Bilirubin 0.7 0.1-1.0 MG/DL Aspartate Amino Transf (AST/SGOT) 20 5-34 U/L Alanine Aminotransferase (ALT/SGPT) 18 0-55 U/L Alkaline Phosphatase 34 L 40-136 U/L Myoglobin 208.4 H 10.0-92.0 NG/ML Troponin I 0.037 H <0.028 NG/ML C-Reactive Protein High Sensitivity 1.68 H 0.00-0.50 MG/DL B-Type Natriuretic Peptide 80.7 <100.0 PG/ML Total Protein 8.1 6.4-8.2 GM/DL Albumin 4.3 3.2-4.5 GM/DL Amylase Level 24 L 25-125 U/L Lipase 8 8-78 U/L TSH [place] Testing 2.41 0.35-4.94 UIU/ML Serum Alcohol < 10 <10 MG/DL Urine Color YELLOW Urine Clarity CLEAR Urine pH 6.0 5-9 Urine Specific [place] 1.015 L 1.016-1.022 Urine Protein 3+ H NEGATIVE Urine Glucose (UA) 3+ H NEGATIVE Urine Ketones 1+ H NEGATIVE Urine Nitrite NEGATIVE NEGATIVE Urine Bilirubin NEGATIVE NEGATIVE Urine Urobilinogen 0.2 < = 1.0 MG/DL Urine Leukocyte Esterase NEGATIVE NEGATIVE Urine RBC (Auto) 2+ H NEGATIVE Urine RBC >100 H /HPF Urine WBC 2-5 /HPF Urine Crystals NONE /LPF Urine Bacteria TRACE /HPF Urine Casts PRESENT /LPF Urine Hyaline Casts 0-2 H /LPF Urine Mucus NEGATIVE /LPF Urine Culture Indicated NO Urine Opiates Screen NEGATIVE NEGATIVE Urine Oxycodone Screen NEGATIVE NEGATIVE Urine Methadone Screen NEGATIVE NEGATIVE Urine Propoxyphene Screen NEGATIVE NEGATIVE Urine Barbiturates Screen NEGATIVE NEGATIVE Ur Tricyclic Antidepressants Screen NEGATIVE NEGATIVE Urine Phencyclidine Screen NEGATIVE NEGATIVE Urine Amphetamines Screen NEGATIVE NEGATIVE Urine Methamphetamines Screen NEGATIVE NEGATIVE Urine Benzodiazepines Screen NEGATIVE NEGATIVE Urine Cocaine Screen NEGATIVE NEGATIVE Urine Cannabinoids Screen NEGATIVE NEGATIVE Test 02/17/20 19:24 02/17/20 20:00 Range/Units Sodium Level 127 L 135-145 MMOL/L Potassium Level 3.8 3.6-5.0 MMOL/L Chloride Level 92 L 98-107 MMOL/L Carbon Dioxide Level 20 L 21-32 MMOL/L Anion Gap 15 H 5-14 MMOL/L Blood Urea Nitrogen 35 H 7-18 MG/DL Creatinine 1.85 H 0.60-1.30 MG/DL Estimat Glomerular Filtration Rate 29 BUN/Creatinine Ratio 19 Glucose Level 362 H 70-105 MG/DL Calcium Level 8.8 8.5-10.1 MG/DL Troponin I 0.042 H <0.028 NG/ML My Orders Orders - FRANNY KEEN Cbc With Automated Diff (02/17/20 16:34) Comprehensive Metabolic Panel (02/17/20 16:34) Protime With Inr (02/17/20 16:34) Partial Thromboplastin Time (02/17/20 16:34) Ua Culture If Indicated (02/17/20 16:34) Accucheck Stat ONCE (02/17/20 16:34) Ed Iv/Invasive Line Start (02/17/20 16:46) Ns Iv 1000 Ml (Sodium Chloride 0.9%) (02/17/20 16:46) Drug Screen Stat (Urine) (02/17/20 17:04) Ct Head/Cervical Spine Wo (02/17/20 17:11) Troponin I (02/17/20 17:14) Ekg Tracing (02/17/20 17:14) Alcohol (02/17/20 17:42) Amylase (02/17/20 17:42) BNP (02/17/20 17:42) Hs C Reactive Protein (02/17/20 17:42) Lipase (02/17/20 17:42) Magnesium (02/17/20 17:42) Thyroid Analyzer (02/17/20 17:42) Myoglobin Serum (02/17/20 17:42) Ct Chest/Abdomen/Pelvis Wo (02/17/20 17:44) Aspirin Chewable Tablet (Baby Aspirin Ch (02/17/20 18:15) Labetalol Injection (Normodyne Injection (02/17/20 18:45) Accucheck Stat ONCE (02/17/20 18:50) Acetaminophen Tablet/Caplet (Tylenol T (02/17/20 19:07) Troponin I (02/17/20 19:22) Ed Iv/Invasive Line Start (02/17/20 19:34) Ns Iv 1000 Ml (Sodium Chloride 0.9%) (02/17/20 19:34) Basic Metabolic Panel (02/17/20 19:39) Ct Angio Head/Neck (02/17/20 19:40) Hemoglobin A1c (02/17/20 19:55) Iohexol Injection (Omnipaque 350 Mg/Ml 1 (02/17/20 20:15) Received Contrast (Hold Metformin- Contr (02/17/20 20:15) Sodium Chloride Flush (Catheter Flush Sy (02/17/20 20:15) Ns (Ivpb) (Sodium Chloride 0.9% Ivpb Bag (02/17/20 20:15) Medications Given in ED Current Medications Medications Dose Ordered Sig/Arlet Route Start Time Stop Time Status Last Admin Dose Admin Aspirin 324 mg ONCE ONCE PO 02/17/20 18:15 02/17/20 18:16 DC 02/17/20 18:14 324 MG Iohexol 100 ml ONCE ONCE IV 02/17/20 20:15 02/17/20 20:17 DC 02/17/20 20:37 75 ML Labetalol HCl 20 mg ONCE ONCE IV 02/17/20 18:45 02/17/20 18:46 DC 02/17/20 18:47 20 MG Sodium Chloride 10 ml NEEDED PRN IV 02/17/20 20:15 02/17/20 20:37 10 ML Sodium Chloride 100 ml ONCE ONCE IV 02/17/20 20:15 02/17/20 20:17 DC 02/17/20 20:37 80 ML Vital Signs/I&O 5/7/20 16:40 Temp 36.2 Pulse 114 Resp 20 B/P (MAP) 140/114 (123) Pulse Ox 100 O2 Delivery Room Air Blood Pressure Mean: 123 FSBG Bedside Testing Finger Stick Blood Glucose: 455 Blood Glucose Action Taken: FRANNY NOTIFIED. Progress Progress Note : Time: 16:40 Progress Note Patient seen and evaluated, will obtain CT head and neck, labs, normal saline 1 L and continue to monitor. Spoke to Daughter, Jada [phone] for history, will keep her updated on plan. 1729 +Gag Reflex, patient drank 8 oz of water, able to swallow. Tylenol 650 mg po for headache. 1814 Pt's mother called, Loraine [phone], attempted to let patient speak to her via speaker phone. 1929 Spoke to Neuro, Dr. Fox, recommended no TPA since unknown last well time, proceed with CT Angio Head and Neck, aware of elevated kidney function, continue to hydrate with NS per IV. Feels this is Metabolic Encephalopathy with Concussion from fall. Can be managed here, unless CT Agio show findings that would require transfer. Notified Radiology, will obtain CT. [address] Saldaña, agreeable to admit to ICU with insulin drip. Spoke to Dr. Delarosa, since fall yesterday, will require trauma consult. [address] Farmer, agrees to consult on patient. 2114 CT angio head and neck negative for acute findings. Patient answering questions and following simple commands. Taking water with Medicine. Will give Toprol XL 100 mg now and daily, B/P labile. 2129 Fentanyl 25 mcg IV for headache. Initial ECG Impression Date: February 17, 2020 Initial ECG Impression Time: 17:44 Initial ECG Rate: 112 Initial ECG Rhythm: S.Tach Initial ECG Intervals: Normal Initial ECG Intervals QRSD 90, QT 348, QTC 475. [place] QRS 8, T 26. Initial ECG Impression: Normal Diagnostic Imaging Diagonstic Imaging: CT Plain Films/CT/US/NM/MRI: chest, abdomen, pelvis Comments NAME: LORAINE COTA [facility] REC#: [id number] PT STATUS: REG ER : 1970 PHYSICIAN: FRANNY KEEN MUSIC DIRECTOR ADMIT DATE: 02/17/20/ER Draft Date of Exam:02/17/20 CT CHEST/ABDOMEN/PELVIS WO PROCEDURE: CT chest, abdomen, and pelvis without contrast. TECHNIQUE: Multiple contiguous axial images were obtained through the chest, abdomen, and pelvis without the use of intravenous contrast. Auto Exposure Controls were utilized during the CT exam to meet ALARA standards for radiation dose reduction. DATE: February 17, 2020. COMPARISON: Chest radiographs October 31, 2019. INDICATION: 49-year-old female, unwitnessed fall down stairs. Altered mental status. FINDINGS: There are limitations for evaluation of the abdominal organs, neoplastic processes, abscess, and limited evaluation of the vasculature relating to the lack of intravenous contrast. There is a 5 mm calcified left upper lobe granuloma on axial image 13. There is very mild dependent atelectasis in the lower lobes. There is no additional focal airspace consolidation. There is no pneumothorax. There is no pleural effusion. The more central airways are patent. The heart is not enlarged. There is no pericardial effusion. There is no identified abnormally enlarged mediastinal or axillary lymph node meeting CT size criteria for adenopathy. The liver is unremarkable in size and contour. The gallbladder is unremarkable. There is no biliary ductal dilation. The main pancreatic duct is not abnormally dilated. Limited noncontrast evaluation of the pancreas is unremarkable. The spleen is normal in size. The adrenal glands are unremarkable. Unremarkable appearance of the renal parenchyma. The urinary collecting systems are not distended. There is no identified renal or ureteral stone. There are pelvic calcifications consistent with phleboliths. There is a Jay catheter within the urinary bladder which is collapsed and not well evaluated. The uterus and adnexa are grossly unremarkable in appearance on CT assessment. The intestinal tract is not distended. There is no free intraperitoneal air. There is no evidence of acute appendicitis. There is no drainable fluid collection. There is no free pelvic fluid. There are atherosclerotic calcifications. There is no identified abnormally enlarged lymph node in the abdomen or pelvis which meets CT size criteria for adenopathy. There is a sclerotic lesion in the right side of the sacrum on axial image 95, measuring 8 mm in size which is not specific. There are degenerative changes of the spine. There is no identified acute fracture or other acute bony abnormality. IMPRESSION: CT chest, abdomen and pelvis: 1. No identified acute abnormality at the level of the chest, abdomen or pelvis. Dictated on workstation # [id number] Dict: 02/17/20 1830 Trans: 02/17/20 183 [facility] [id number] Interpreted by: YAIMA GARCIA MD Electronically signed by: Reviewed: Reviewed by Me Plain Films/CT/US/NM/MRI: c-spine, head Comments NAME: LORAINE COTA [facility] REC#: [id number] PT STATUS: REG ER : 1970 PHYSICIAN: FRANNY KEEN ADMIT DATE: 02/17/20/ER Draft Date of Exam:02/17/20 CT HEAD/CERVICAL SPINE WO PROCEDURE: CT head and CT cervical spine without contrast. TECHNIQUE: Multiple contiguous axial images were obtained through the brain and cervical spine without the use of intravenous contrast. Sagittal and coronal reformations through the cervical spine were then performed. Auto Exposure Controls were utilized during the CT exam to meet ALARA standards for radiation dose reduction. INDICATION: Altered mental status. Unwitnessed fall downstairs COMPARISON: None FINDINGS: CT HEAD: The ventricles and cortical sulci appear age-appropriate. There is no midline shift or mass effect. No acute intracranial hemorrhage is seen. There is no CT evidence of acute territorial ischemia. The calvarium appears intact. Visualized paranasal sinuses are clear. CT CERVICAL SPINE: Alignment of the cervical spine appears normal with no spondylolisthesis. There are moderate degenerative changes at C5-C6 and C6-C7. Vertebral body heights and disc heights otherwise appear normal. No acute fracture is seen. No bony fragments or hyperdense fluid collections are seen in the spinal canal. There is increased noise in the lower cervical spine, but no soft tissue abnormality is seen. IMPRESSION: 1. No acute intracranial hemorrhage or calvarium fracture. 2. Degenerative changes in the cervical spine with no acute osseous abnormality seen. Dictated on workstation # [id number] Dict: 02/17/20 1743 Trans: 02/17/20 174 [facility] [id number] Interpreted by: MAYRA SMALL MD Electronically signed by: Reviewed: Reviewed by Me, Reviewed/Discussed (with Dr. Parra) Diagonstic Imaging: CT (Angio) Plain Films/CT/US/NM/MRI: c-spine, head Comments NAME: LORAINE COTA [facility] REC#: [id number] PT STATUS: REG ER : 1970 PHYSICIAN: FRANNY KEEN ADMIT DATE: 02/17/20/ER Draft Date of Exam:02/17/20 CT ANGIO HEAD/NECK PROCEDURE: CT angiography of the head and CT angiography of the neck with and without contrast. TECHNIQUE: Contiguous noncontrast images were obtained from the skull base through the vertex. After intravenous contrast administration, helical CT angiography of the neck was performed. Source data was reformatted into 3D MIP projections. Delayed post contrast acquisition was also obtained. Auto Exposure Controls were utilized during the CT exam to meet ALARA standards for radiation dose reduction. INDICATION: Altered mental status. Unwitnessed fall down stairs. COMPARISON: CT head from the same day. FINDINGS: The patient's kidney function is poor, however, given the concern for stroke and the patient's mental status, concern for neurologic damage outweighed potential renal damage. This was confirmed by the ordering provider. The patient was reportedly unable to consent due to mental status. The patient will be admitted and receive intravenous fluids. There is atherosclerosis at the origin of the right common carotid artery without significant stenosis. The left common carotid artery is also widely patent. The right internal carotid artery demonstrates mild atherosclerosis. There is atherosclerosis in the proximal left internal carotid artery as well, with approximately 25% narrowing. The left vertebral artery appears slightly dominant. The vertebral arteries appear patent, bilaterally. The anterior cerebral arteries appear normal, bilaterally. The anterior communicating artery is seen. The middle cerebral arteries appear normal, bilaterally. The posterior communicating artery is seen, bilaterally. The posterior cerebral arteries are well seen, bilaterally. The superior cerebellar arteries appear normal. The basilar artery is somewhat diminutive, but appears patent. The dural sinuses demonstrate no filling defects to indicate thrombus. The calvarium appears intact. Visualized paranasal sinuses are clear. Soft tissues about the cervical spine demonstrate no acute abnormality. There are degenerative changes in the cervical spine with no acute fracture seen. There is a calcified granuloma in the left lung apex. No enhancing masses are seen in the brain parenchyma. IMPRESSION: No acute abnormality is seen in the arteries of the head and neck. There is mild atherosclerosis with approximately 25% narrowing in the left ICA, but no high-grade stenosis, dissection or occlusion is seen. Dictated on workstation # [id number] Dict: 02/17/202048 Trans: 02/17/202058 [facility] [id number] Interpreted by: MAYRA SMALL MD Electronically signed by: Reviewed: Reviewed by Me Departure Impression Primary Impression: Nausea & vomiting Qualified Codes: R11.2 - Nausea with vomiting, unspecified Additional Impressions: Altered mental status Qualified Codes: R41.0 - Disorientation, unspecified Hyperglycemia Metabolic encephalopathy Fall down stairs Qualified Codes: W10.8XXA - Fall (on) (from) other stairs and steps, initial encounter Non compliance w medication regimen Disposition: ADMITTED INPATIENT Condition: Stable Admissions Decision to Admit Reason: Admit from ER (General) Decision to Admit/Date: February 17, 2020 Time/Decision to Admit Time: 19:00 Departure-Patient Inst. Referrals: ALVA BENTLEY MD (PCP/Family) Primary Care Physician Copy Copies To 1: ALVA BENTLEY MD, AMY ARNP February 17, 2020 18:02
--- NOTE | 2020-02-17 18:10 | NUR ---
Pt was able to drink water without difficulty prior to taking aspirin.
[2020-02-17] MEDS ORDERED: ASPIRIN 81 MG CHEW (CHILDREN'S ASA) PO ONE (18:15)
--- NOTE | 2020-02-17 18:40 | Diagnostic Imaging Report ---
PROCEDURE: CT chest, abdomen, and pelvis without contrast. TECHNIQUE: Multiple contiguous axial images were obtained through the chest, abdomen, and pelvis without the use of intravenous contrast. Auto Exposure Controls were utilized during the CT exam to meet ALARA standards for radiation dose reduction. DATE: February 17, 2020. COMPARISON: Chest radiographs October 31, 2019. INDICATION: 49-year-old female, unwitnessed fall down stairs. Altered mental status. FINDINGS: There are limitations for evaluation of the abdominal organs, neoplastic processes, abscess, and limited evaluation of the vasculature relating to the lack of intravenous contrast. There is a 5 mm calcified left upper lobe granuloma on axial image 13. There is very mild dependent atelectasis in the lower lobes. There is no additional focal airspace consolidation. There is no pneumothorax. There is no pleural effusion. The more central airways are patent. The heart is not enlarged. There is no pericardial effusion. There is no identified abnormally enlarged mediastinal or axillary lymph node meeting CT size criteria for adenopathy. The liver is unremarkable in size and contour. The gallbladder is unremarkable. There is no biliary ductal dilation. The main pancreatic duct is not abnormally dilated. Limited noncontrast evaluation of the pancreas is unremarkable. The spleen is normal in size. The adrenal glands are unremarkable. Unremarkable appearance of the renal parenchyma. The urinary collecting systems are not distended. There is no identified renal or ureteral stone. There are pelvic calcifications consistent with phleboliths. There is a Jay catheter within the urinary bladder which is collapsed and not well evaluated. The uterus and adnexa are grossly unremarkable in appearance on CT assessment. The intestinal tract is not distended. There is no free intraperitoneal air. There is no evidence of acute appendicitis. There is no drainable fluid collection. There is no free pelvic fluid. There are atherosclerotic calcifications. There is no identified abnormally enlarged lymph node in the abdomen or pelvis which meets CT size criteria for adenopathy. There is a sclerotic lesion in the right side of the sacrum on axial image 95, measuring 8 mm in size which is not specific. There are degenerative changes of the spine. There is no identified acute fracture or other acute bony abnormality. IMPRESSION: CT chest, abdomen and pelvis: 1. No identified acute abnormality at the level of the chest, abdomen or pelvis. Dictated by: Dictated on workstation # [id number]
[2020-02-17] MEDS ORDERED: LABETALOL HCL 20 MG/4 ML VIAL IV ONE (18:45)
[2020-02-17 18:51] LABS: TSH (THYROID ANALYZER) 2.41 UIU/ML (0.35-4.94)
[2020-02-17] MEDS ORDERED: ACETAMINOPHEN 325 MG TABLET PO STA (19:07)
--- OUTSIDE RECORDS SUMMARY | 2020-02-17 19:16 | XMS REPORT ---
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 [place] [address] Jun, [facility] [place] [address] [facility] [id number] [address] [address] Dec, IMMUNIZATIONS No Known Immunizations SOCIAL HISTORY [...] [facility] - diabetic ulcer 09/16-09/22/2019 Hospitalization History [facility] 10/21-10/25/2019
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
[2020-02-17 19:56] LABS: CALCIUM 8.8 MG/DL (8.5-10.1); CREATININE SERUM 1.85 MG/DL (0.60-1.30)
[2020-02-17] MEDS ORDERED: IOHEXOL 350 MG/ML 100 ML (OMNIPAQUE 350) VIAL IV ONE (20:15)
[2020-02-17] MEDS ORDERED: NS 100 ML (IVPB) BAG IV ONE (20:15)
[2020-02-17] MEDS ORDERED: HOLD METFORMIN - RECEIVED CONTRAST 20 ML VIAL IV SCH (20:15)
[2020-02-17] MEDS ORDERED: CATHETER FLUSH 10 ML SYR IV PRN (20:15)
[2020-02-17 20:43] LABS: POTASSIUM 3.8 MMOL/L (3.6-5.0)
--- NOTE | 2020-02-17 20:50 | NUR ---
RECEIVED REPORT FROM WALLY MON.
--- NOTE | 2020-02-17 21:01 | Diagnostic Imaging Report ---
PROCEDURE: CT angiography of the head and CT angiography of the neck with and without contrast. TECHNIQUE: Contiguous noncontrast images were obtained from the skull base through the vertex. After intravenous contrast administration, helical CT angiography of the neck was performed. Source data was reformatted into 3D MIP projections. Delayed post contrast acquisition was also obtained. Auto Exposure Controls were utilized during the CT exam to meet ALARA standards for radiation dose reduction. INDICATION: Altered mental status. Unwitnessed fall down stairs. COMPARISON: CT head from the same day. FINDINGS: The patient's kidney function is poor, however, given the concern for stroke and the patient's mental status, concern for neurologic damage outweighed potential renal damage. This was confirmed by the ordering provider. The patient was reportedly unable to consent due to mental status. The patient will be admitted and receive intravenous fluids. There is atherosclerosis at the origin of the right common carotid artery without significant stenosis. The left common carotid artery is also widely patent. The right internal carotid artery demonstrates mild atherosclerosis. There is atherosclerosis in the proximal left internal carotid artery as well, with approximately 25% narrowing. The left vertebral artery appears slightly dominant. The vertebral arteries appear patent, bilaterally. The anterior cerebral arteries appear normal, bilaterally. The anterior communicating artery is seen. The middle cerebral arteries appear normal, bilaterally. The posterior communicating artery is seen, bilaterally. The posterior cerebral arteries are well seen, bilaterally. The superior cerebellar arteries appear normal. The basilar artery is somewhat diminutive, but appears patent. The dural sinuses demonstrate no filling defects to indicate thrombus. The calvarium appears intact. Visualized paranasal sinuses are clear. Soft tissues about the cervical spine demonstrate no acute abnormality. There are degenerative changes in the cervical spine with no acute fracture seen. There is a calcified granuloma in the left lung apex. No enhancing masses are seen in the brain parenchyma. IMPRESSION: No acute abnormality is seen in the arteries of the head and neck. There is mild atherosclerosis with approximately 25% narrowing in the left ICA, but no high-grade stenosis, dissection or occlusion is seen. Dictated by: Dictated on workstation # [id number]
[2020-02-17] MEDS ORDERED: fentaNYL INJECTION 100 MCG/2 ML AMP IVP STA (21:07)
[2020-02-17] MEDS ORDERED: meTOprolol SUCCINATE 100 MG (TOPROL XL) TAB PO ONE (21:15)
[2020-02-17] MEDS ORDERED: NORMAL SALINE 250 ML ONE (21:48)
[2020-02-17] MEDS ORDERED: inSUlin (REGULAR) HUMAN 1 UNIT/0.01 ML (CHARGE PER UNIT) ONE (21:49)
[2020-02-17 22:00] VITALS: BP 171/88
[2020-02-17] MEDS ORDERED: inSUlin REGULAR TPN/DRIP ONLY 250 UNITS in NORMAL SALINE 250 ML IV SCH (22:00)
[2020-02-17] MEDS ORDERED: LORazepam INJ 2 MG/ML (ATIVAN) VIAL IV PRN (22:00)
[2020-02-17] MEDS ORDERED: fentaNYL INJECTION 100 MCG/2 ML AMP IV PRN (22:00)
[2020-02-17] MEDS ORDERED: ACETAMINOPHEN 325 MG TABLET PO PRN (22:00)
[2020-02-17] MEDS: 1/2 NS IV SOLUTION 1,000 ML IV SCH (22:09)
[2020-02-17 22:15] VITALS: BP 169/92
--- NOTE | 2020-02-17 22:18 | NUR ---
3.5UNIT BOLUS OF INSULIN GIVEN PER BRIDGE ORDERS FOLLOWED WITH INSULIN GTT STARTING AT 5UNITS/HR PER BRIDGE ORDERS.
[2020-02-17] MEDS: POTASSIUM CL 10MEQ/50ML IVPB 50 ML IV SCH ×2 (22:20→23:46)
[2020-02-17 22:30] VITALS: BP 174/92
[2020-02-17 22:45] VITALS: BP 132/80
--- NOTE | 2020-02-17 23:09 | NUR ---
THIS RN NOTIFIED DR. DENNISON FROM TELEICU AND DR. KHAN OF PT SEPSIS SCREENING. PT FLAGGED SEVERE SEPSIS RISK. NO NEW ORDERS OBTAINED.
[2020-02-17 23:15] VITALS: BP 141/79
[2020-02-17 23:45] VITALS: BP 141/78
[2020-02-17] MEDS: D5 1/2 NS 1000 ML IV SOLUTION 1,000 ML IV SCH (23:55)
[2020-02-18] VITALS (21 sets, daily range): BP systolic 119–204; BP diastolic 67–121
[2020-02-18 00:38] LABS: POTASSIUM 3.8 MMOL/L (3.6-5.0)
[2020-02-18 00:39] LABS: CALCIUM 8.2 MG/DL (8.5-10.1)
[2020-02-18 00:44] LABS: CREATININE SERUM 1.59 MG/DL (0.60-1.30)
[2020-02-18] MEDS: POTASSIUM CL 10MEQ/50ML IVPB 50 ML IV SCH ×2 (01:43→03:47)
[2020-02-18] MEDS: 1/2 NS IV SOLUTION 1,000 ML IV SCH (01:50)
[2020-02-18 02:40] LABS: BASOPHILS % (AUTO) 0 % (0-10); EOSINOPHILS # (AUTO) 0.1 10^3/uL (0.0-0.3); EOSINOPHILS % (AUTO) 1 % (0-10); HEMATOCRIT 28 % (35-52); HEMOGLOBIN 9.7 G/DL (11.5-16.0); LYMPHOCYTES # (AUTO) 3.9 X 10^3 (1.0-4.0); LYMPHOCYTES % (AUTO) 36 % (12-44); MEAN CORPUSCULAR HEMOGLOBIN 29 PG (25-34); MEAN CORPUSCULAR HGB CONC 35 G/DL (32-36); MEAN CORPUSCULAR VOLUME 83 FL (80-99); MEAN PLATELET VOLUME 11.4 FL (7.4-10.4); MONOCYTES % (AUTO) 10 % (0-12); NEUTROPHILS # (AUTO) 5.9 X 10^3 (1.8-7.8); NEUTROPHILS % (AUTO) 54 % (42-75); PLATELET COUNT 210 10^3/uL (130-400); RED CELL DISTRIBUTION WIDTH 12.1 % (10.0-14.5); WHITE BLOOD COUNT 10.9 10^3/uL (4.3-11.0)
[2020-02-18 02:53] LABS: POTASSIUM 3.7 MMOL/L (3.6-5.0)
[2020-02-18 02:54] LABS: ALBUMIN 3.3 GM/DL (3.2-4.5)
[2020-02-18 02:55] LABS: CALCIUM 8.2 MG/DL (8.5-10.1)
[2020-02-18 02:56] LABS: TOTAL PROTEIN 5.8 GM/DL (6.4-8.2)
[2020-02-18 02:58] LABS: BILIRUBIN,TOTAL 0.4 MG/DL (0.1-1.0)
[2020-02-18 02:59] LABS: PHOSPHORUS 3.4 MG/DL (2.3-4.7)
[2020-02-18 03:00] LABS: CREATININE SERUM 1.51 MG/DL (0.60-1.30)
[2020-02-18 03:03] LABS: MAGNESIUM 1.9 MG/DL (1.6-2.4)
--- NOTE | 2020-02-18 03:08 | NUR ---
THIS RN CALLED TELEICU TO UPDATE DR. DENNISON ON PT CURRENT LABS AND GLUCOSE LEVELS. NEW ORDERS OBTAINED FOR LEVEMIR, SEE ORDER HX.
[2020-02-18] MEDS: ONDANSETRON 4 MG/2 ML (SDV) Z0FRAN IV PRN ×3 (03:47→13:34)
[2020-02-18] MEDS: D5 1/2 NS 1000 ML IV SOLUTION 1,000 ML IV SCH (03:56)
--- NOTE | 2020-02-18 05:11 | Pulmonary Consultation ---
History of Present Illness History of Present Illness Date Seen by Provider: February 18, 2020 Time Seen by Provider: 05:05 Date of Admission History of Present Illness 49yo poor historian with hx of noncompliant IDDM presented to ED secondary to s/p fall and altered MS. She denies loss of consciousness, neck pain or back pain. Her daughter reports she began having nausea and vomiting last evening and today. Her glucose was 600 at 1440, they gave 17 units of Humalog at 1500, came down to 500. She is on cymbalta but doesn't take it as prescribed. Does not take her blood pressure medicine daily. Multiple amputations of toes, secondary to uncontrolled DM. Daughter reports at 0700 today, the patient had normal mental status, she was up and vomiting. At 1400, her daughter returned home and she had altered mental status. Unknown last well time. Allergies and Home Medications Allergies Coded Allergies: metronidazole (Unverified Allergy, Mild, RASH, 10/30/19) MACULAR RASH amlodipine (Verified Allergy, Unknown, 10/25/19) clarithromycin (Verified Allergy, Unknown, 10/21/19) hydrocodone (Verified Allergy, Unknown, 10/21/19) Home Medications Acetaminophen 500 Mg Tablet, 500-1,000 MG PO Q6H PRN for PAIN-MILD, (Reported) Albuterol Sulfate 1 Puff Puff, 2 PUFF IH Q6H PRN for SHORTNESS OF BREATH, (Reported) Atorvastatin Calcium 20 Mg Tablet, 20 MG PO HS, (Reported) Doxazosin Mesylate 4 Mg Tablet, 4 MG PO HS, (Reported) Fluoxetine HCl 20 Mg Capsule, 20 MG PO HS, (Reported) Gabapentin 600 Mg Tablet, 600 MG PO TID Prescribed by: KRISTINE GUZMAN on 11/01/19 1222 Guaifenesin 600 Mg Tab.er.12h, 600 MG PO BID Prescribed by: KRISTINE GUZMAN on 11/01/19 1222 Hydralazine HCl 25 Mg Tablet, 25 MG PO TID, (Reported) Insulin Detemir 100 Unit/1 Ml Insuln.pen, 30 UNIT SQ BID PRN for WHEN REMEMBERS, (Reported) LAST FILLED 11-23-18 - ADMITS SHE DOES NOT USE REGULARLY Insulin Lispro 100 Unit/1 Ml Insuln.pen, 30 UNIT SQ TIDAC, (Reported) Lactulose 10 Gm/15 Ml Solution, 15 ML PO TID PRN for CONSTIPATION-3RD LINE, (Reported) Metoprolol Succinate 100 Mg Tab.er.24h, 100 MG PO DAILY Prescribed by: DANNY KHAN on 02/18/20 1152 Ondansetron HCl 8 Mg Tablet, 8 MG PO Q6H PRN for NAUSEA/VOMITING-1ST LINE Prescribed by: KRISTINE GUZMAN on 11/01/19 1222 Past Grycusa-Qxbhfg-Eduhwi Hx Past Med/Social Hx: Reviewed Nursing Past Med/Soc Hx Patient Social History 2nd Hand Smoke Exposure: No Recent Foreign Travel: No Contact w/Someone Who Travel: No Recent Infectious Disease Expo: No Recent Hopitalizations: No Immunizations Up To Date Tetanus Booster (TDap): Unknown Seasonal Allergies Seasonal Allergies: Yes Past Medical History Surgeries: Yes Abdominal, Section, Eye Surgery, Orthopedic Respiratory: No Cardiac: Yes Hypertension Neurological: Yes (PERIPHERAL NEUROPATHY) Neuropathy [employer] History: Menopausal Genitourinary: No Gastrointestinal: Yes Gastroesophageal Reflux Musculoskeletal: No Endocrine: Yes Diabetes, Insulin dep HEENT: Yes (RETINOPATHY) Macular Degeneration Cancer: No Psychosocial: Yes Anxiety Integumentary: Yes (L foot wound) Recent Skin Changes Blood Disorders: No Family Medical History Asthma G8 BROTHER G8 BROTHER Cardiovascular disease 19 FATHER G8 BROTHER Diabetes mellitus 19 MOTHER G8 BROTHER G8 BROTHER Kidney disease G8 BROTHER Myocardial infarction 19 FATHER Respiratory disorder G8 BROTHER G8 BROTHER No Pertinent Family Hx Review of Systems Time Seen by Provider: 05:13 Constitutional: Weakness, Malaise; No: Fever, Chills, Sweats, Other Eyes: No: Pain, Vision change, Conjunctivae inflammation, Eyelid inflammation, Other, Redness ENT: No: Ear pain, Ear discharge, Nose pain, Nose discharge, Nose congestion, Mouth pain, Mouth swelling, Throat pain, Throat swelling, Other Respiratory: Cough, Dry, Shortness of breath; No: SOB with excertion, Wheezing, Hemoptysis, Pleuritic Pain, Sputum, Wheezing, Other Cardiovascular: Palpitations, Paroxysmal Noc. Dyspnea; No: Chest Pain, Orthopnea, Edema, Lt Headedness, Other Gastrointestinal: Nausea, Abdominal Pain; No: Vomiting, Diarrhea, Constipation, Melena, Hematochezia, Other Sepsis Event Evaluation Height, Weight, BMI Height: 5'5.00" Weight: 221lbs. 4.8oz. 100.883477ag; 28.00 BMI Method:Stated Exam Exam Vital Signs Date Time Temp Pulse Resp B/P (MAP) Pulse Ox O2 Delivery O2 Flow Rate FiO2 02/18/20 03:37 36.9 02/18/20 03:33 Room Air 02/18/20 02:00 90 14 149/86 (107) 97 Room Air 02/18/20 01:00 93 14 134/71 (92) 95 Room Air 02/18/20 01:00 92 02/18/20 00:00 Room Air 02/18/20 00:00 96 17 142/67 (92) 96 Room Air 02/17/20 23:45 95 14 141/78 (99) 95 Room Air 02/17/20 23:26 37.0 02/17/20 23:15 96 15 141/79 (99) 94 Room Air 02/17/20 22:45 98 14 132/80 (97) 96 Room Air 02/17/20 22:35 Room Air 02/17/20 22:30 102 8 174/92 (119) 94 Room Air 02/17/20 22:15 103 14 169/92 (117) 98 Room Air 02/17/20 22:00 36.8 105 14 171/88 (115) 97 Room Air 02/17/20 21:51 106 02/17/20 21:45 36.2 106 20 163/96 (123) 97 Room Air 02/17/20 16:40 36.2 114 20 140/114 (123) 100 Room Air I & O 02/18/20 07:00 Intake Total 4200 ml Output Total 1200 ml Balance 3000 ml Height & Weight Height: 5'5.00" Weight: 221lbs. 4.8oz. 100.639764uc; 28.00 BMI Method:Stated General Appearance: No Apparent Distress, WD/WN, Anxious HEENT: PERRL/EOMI, TMs Normal, Normal ENT Inspection Neck: Full Range of Motion, Normal Inspection, Supple Respiratory: Chest Non Tender, Lungs Clear, Normal Breath Sounds, No Accessory Muscle Use Cardiovascular: Regular Rate, Rhythm, No Edema Capillary Refill: Less Than 3 Seconds Gastrointestinal: normal bowel sounds, non tender, soft; No distended, No guarding, No rebound, No tenderness Extremity: Normal Capillary Refill, Normal Inspection Neurologic/Psychiatric: Alert, Disoriented Skin: Normal Color, Warm/Dry Lymphatic: No Adenopathy Results Lab Laboratory Tests 02/17/20 16:50 02/17/20 19:24 02/18/20 00:18 02/18/20 02:32 Assessment/Plan Assessment/Plan Acute DKA -Pt was started on Cymbalta 3wks ago -Pt has not been taking insulin at home. -DKA protocol -Levemier 20units given at 0313 -D/c Insulin gtt at 513 Medical noncompliance -Education Vaginal yeast infection -Start Diflucan S/p fall down stairs 02/15 -Head CT is negative Metabolic encephlopathy - improving -UDS is neg MERCY FRANCOIS DO February 18, 2020 05:10
[2020-02-18] MEDS ORDERED: FLUCONAZOLE 200 MG/100 ML 100 ML IV ONE (05:15)
[2020-02-18] MEDS: LACTATED RINGERS 1,000 ML IV SCH ×3 (05:29→18:48)
[2020-02-18] MEDS ORDERED: POTASSIUM CL 10MEQ/50ML IVPB 50 ML IV SCH (06:00)
[2020-02-18] MEDS ORDERED: MAGNESIUM 1 GM/100 ML IVPB 100 ML IV SCH (06:00)
[2020-02-18] MEDS ORDERED: KCL 20 MEQ TAB (K-DUR) PO SCH (06:00)
[2020-02-18] MEDS: inSUlin ASPART (NovoLOG) 1 UNIT/0.01 ML (CHARGE PER UNIT) SC SCH ×3 (06:12→16:34)
--- NOTE | 2020-02-18 06:25 | Diagnostic Imaging Report ---
Indication: Altered mental status Portable chest 3:39 AM Heart size and pulmonary vascularity are normal. Lungs are clear. There are no effusions or pneumothoraces. IMPRESSION: Negative chest Dictated by: Dictated on workstation # [id number]
[2020-02-18 06:27] LABS: POTASSIUM 3.6 MMOL/L (3.6-5.0)
[2020-02-18 06:28] LABS: CALCIUM 7.9 MG/DL (8.5-10.1)
[2020-02-18 06:33] LABS: CREATININE SERUM 1.45 MG/DL (0.60-1.30)
[2020-02-18] MEDS ORDERED: meTOprolol SUCCINATE 100 MG (TOPROL XL) TAB PO SCH ×2 (09:00)
--- NOTE | 2020-02-18 09:23 | Consultation-Cardiology ---
HPI-Cardiology Cardiology Consultation: Date of Consultation 02/18/20 Time Seen by a Provider: 08:10 Date of Admission 02-17-2020 Attending Physician Yaa Khan DO Admitting Physician Dante Catherine MD Consulting Physician Venancio Farmer MD HPI: Chief Complaint: Tachycardia AMS Ms. Cota is a 49 year old female admitted to ICU 12 from the ED. She is a poor historian. She states she was helping her grandson yesterday carry a bicycle down a flight of stairs when she lost her balance and fell hitting her head. She denies any LOC. She denies any syncope or near syncope. She states she has been taking Cymbalta for approx a week and has felt "crazy". She reports she has had difficulty thinking clearly, speaking and gen weakness since taking the Cymbalta. She also reports her fasting glucose has been high. She reports she takes insulin, but has not been taking it for several years. She denies any c/o CP, palpitations, dyspnea or LE swelling. She denies any n/v/d. She states she lives at home alone. She reports she has high blood pressure, but does not know what medication she takes, and states she has not been taking it as Rx. Review of Systems-Cardiology Review of Systems Constitutional: No chills, No fever; malaise Eyes: No vision change Ears/Nose/Throat: No epistaxis, No recent hearing loss Respiratory: As described under HPI Cardiovascular: As described under HPI Gastrointestinal: No constipation, No diarrhea, No nausea, No vomiting Genitourinary: No dysuria, No hematuria Skin: No rash on exposed areas, No ulcerations on exposed areas Psychiatric/Neurological: As described under HPI, anxiety, depression Hematologic: No bleeding abnormalities All Other Systems Reviewed Negative Unless Noted: Yes UIE-Dflpgu-Pdxjph Hx Patient Social History 2nd Hand Smoke Exposure: No Recent Foreign Travel: No Recent Infectious Disease Expo: No Immunizations Up To Date Tetanus Booster (TDap): Unknown Past Medical History PMH As described under Assessment. Family Medical History Family Medical History: She reports her father passed from an ME at age 42. She reports a brother who had an ME, CAD and CM who was first diagnosed at age 58. She reports another brother with HTN. She reports her mother has HTN. Family History: 19 FATHER Cardiovascular disease Myocardial infarction 19 MOTHER Diabetes mellitus G8 BROTHER Diabetes mellitus Asthma Respiratory disorder G8 BROTHER Cardiovascular disease Respiratory disorder Kidney disease Asthma Diabetes mellitus Allergies and Home Medications Allergies Coded Allergies: metronidazole (Unverified Allergy, Mild, RASH, 10/30/19) MACULAR RASH amlodipine (Verified Allergy, Unknown, 10/25/19) clarithromycin (Verified Allergy, Unknown, 10/21/19) hydrocodone (Verified Allergy, Unknown, 10/21/19) Home Medications Acetaminophen 500 Mg Tablet, 500-1,000 MG PO Q6H PRN for PAIN-MILD, (Reported) Albuterol Sulfate 1 Puff Puff, 2 PUFF IH Q6H PRN for SHORTNESS OF BREATH, (Reported) Atorvastatin Calcium 20 Mg Tablet, 20 MG PO HS, (Reported) Doxazosin Mesylate 4 Mg Tablet, 4 MG PO HS, (Reported) Fluoxetine HCl 20 Mg Capsule, 20 MG PO HS, (Reported) Gabapentin 600 Mg Tablet, 600 MG PO TID Prescribed by: KRISTINE GUZMAN on 11/01/19 1222 Guaifenesin 600 Mg Tab.er.12h, 600 MG PO BID Prescribed by: KRISTINE GUZMAN on 11/01/19 1222 Hydralazine HCl 25 Mg Tablet, 25 MG PO TID, (Reported) Insulin Detemir 100 Unit/1 Ml Insuln.pen, 30 UNIT SQ BID PRN for WHEN REMEMBERS, (Reported) LAST FILLED 11-23-18 - ADMITS SHE DOES NOT USE REGULARLY Insulin Lispro 100 Unit/1 Ml Insuln.pen, 30 UNIT SQ TIDAC, (Reported) Lactulose 10 Gm/15 Ml Solution, 15 ML PO TID PRN for CONSTIPATION-3RD LINE, (Reported) Metoprolol Succinate 100 Mg Tab.er.24h, 100 MG PO DAILY Prescribed by: YAA KHAN on 02/18/20 1152 Ondansetron HCl 8 Mg Tablet, 8 MG PO Q6H PRN for NAUSEA/VOMITING-1ST LINE Prescribed by: KRISTINE GUZMAN on 11/01/19 1222 Physical Exam-Cardiology Physical Exam Vital Signs/I&O 02/18/20 02/18/20 02/18/20 02/18/20 03:00 03:33 03:37 04:00 Temp 36.9 Pulse 91 90 Resp 18 21 B/P (MAP) 166/96 (119) 144/78 (100) Pulse Ox 98 97 O2 Delivery Room Air Room Air Room Air 02/18/20 02/18/20 02/18/20 02/18/20 05:00 06:00 07:00 07:00 Pulse 90 98 96 96 Resp 15 15 21 B/P (MAP) 153/78 (103) 119/83 (95) 128/77 (94) Pulse Ox 98 98 93 O2 Delivery Room Air Room Air Room Air 02/18/20 02/18/20 02/18/20 02/18/20 08:00 08:00 08:00 09:00 Temp 37.6 Pulse 94 90 Resp 17 22 B/P (MAP) 173/100 (124) 159/110 (126) Pulse Ox 97 96 O2 Delivery Room Air Room Air Room Air 02/18/20 02/18/20 02/18/20 02/18/20 10:00 11:00 12:00 12:00 Pulse 85 84 92 Resp 9 21 15 B/P (MAP) 154/81 (105) 188/101 (130) Pulse Ox 96 95 98 O2 Delivery Room Air Room Air Room Air Room Air 02/18/20 02/18/20 13:00 14:00 Pulse 92 89 Resp 22 12 B/P (MAP) 204/121 (148) 194/110 (138) Pulse Ox 98 98 O2 Delivery Room Air Room Air 02/18/20 00:00 Intake Total 3100 ml Output Total 625 ml Balance 2475 ml Capillary Refill : Less Than 3 Seconds Constitutional: AAO x 3, well-developed, well-nourished HEENT: PERRL, hearing is well preserved Neck: No carotid bruit; carotid pulses are 2 + bilaterally Respiratory: No accessory muscle use, No respiratory distress; chest expansion is symmetric, chest is bilaterally symmetric, lungs clear to auscultation Cardiovascular: regular rate-rhythm; No JVD; tachycardia Gastrointestinal: No tender; soft, round, audible bowel sounds Genital/Rectal: other (urinary catheter to DD; clear, straw colored urine) Extremities: no lower extremity edema bilateral Neurologic/Psychiatric: grossly intact (moves all extremities) Skin: No rash on exposed areas, No ulcerations on exposed areas; other (brusising to right upper leg; abrasions to fingers on left hand) Data Review Labs Laboratory Tests 02/17/20 16:42: Glucometer 455*H 02/17/20 16:50: White Blood Count 13.4H, Red Blood Count 4.28L, Hemoglobin 12.4, Hematocrit 35, Mean Corpuscular Volume 81, Mean Corpuscular Hemoglobin 29, Mean Corpuscular Hemoglobin Concent 36, Red Cell Distribution Width 12.1, Platelet Count 266, Mean Platelet Volume 12.0H, Neutrophils (%) (Auto) 80H, Lymphocytes (%) (Auto) 15, Monocytes (%) (Auto) 5, Eosinophils (%) (Auto) 0, Basophils (%) (Auto) 0, Neutrophils # (Auto) 10.7H, Lymphocytes # (Auto) 2.0, Monocytes # (Auto) 0.7, Eosinophils # (Auto) 0.0, Basophils # (Auto) 0.0, Prothrombin Time 13.4, INR Comment 1.0, Activated Partial Thromboplast Time 25, Sodium Level 125*L, Pot assium Level 4.5, Chloride Level 89L, Carbon Dioxide Level 19L, Anion Gap 17H, Blood Urea Nitrogen 37H, Creatinine 2.02H, Estimat Glomerular Filtration Rate 26, BUN/Creatinine Ratio 18, Glucose Level 449*H, Calcium Level 9.8, Corrected Calcium 9.6, Magnesium Level 1.9, Total Bilirubin 0.7, Aspartate Amino Transf (AST/SGOT) 20, Alanine Aminotransferase (ALT/SGPT) 18, Alkaline Phosphatase 34L, Myoglobin 208.4H, Troponin I 0.037H, C-Reactive Protein High Sensitivity 1.68H, B-Type Natriuretic Peptide 80.7, Total Protein 8.1, Albumin 4.3, Amylase Level 24L, Lipase 8, TSH [place] Testing 2.41, Serum Alcohol < 10 02/17/20 16:55: Urine Color YELLOW, Urine Clarity CLEAR, Urine pH 6.0, Urine Specific [place] 1.015L, Urine Protein 3+H, Urine Glucose (UA) 3+H, Urine Ketones 1+H, Urine Nitrite NEGATIVE, Urine Bilirubin NEGATIVE, Urine Urobilinogen 0.2, Urine Leukocyte Esterase NEGATIVE, Urine RBC (Auto) 2+H, Urine RBC >100H, Urine WBC 2- 5, Urine Crystals NONE, Urine Bacteria TRACE, Urine Casts PRESENT, Urine Hyaline Casts 0-2H, Urine Mucus NEGATIVE, Urine Culture Indicated NO, Urine Opiates Screen NEGATIVE, Urine Oxycodone Screen NEGATIVE, Urine Methadone Screen NEGATIVE, Urine Propoxyphene Screen NEGATIVE, Urine Barbiturates Screen NEGATIVE, Ur Tricyclic Antidepressants Screen NEGATIVE, Urine Phencyclidine Screen NEGATIVE, Urine Amphetamines Screen NEGATIVE, Urine Methamphetamines Sc reen NEGATIVE, Urine Benzodiazepines Screen NEGATIVE, Urine Cocaine Screen NEGATIVE, Urine Cannabinoids Screen NEGATIVE 02/17/20 18:48: Glucometer 357H 02/17/20 19:24: Sodium Level 127L, Potassium Level 3.8, Chloride Level 92L, Carbon Dioxide Level 20L, Anion Gap 15H, Blood Urea Nitrogen 35H, Creatinine 1.85H, Estimat Glomerular Filtration Rate 29, BUN/Creatinine Ratio 19, Glucose Level 362H, Calcium Level 8.8, Troponin I 0.042H 02/17/20 20:00: 02/17/20 21:51: Glucometer 329H 02/17/20 22:43: Glucometer 275H 02/17/20 23:48: Glucometer 225H 02/18/20 00:18: Sodium Level 131L, Potassium Level 3.8, Chloride Level 100, Carbon Dioxide Level 20L, Anion Gap 11, Blood Urea Nitrogen 30H, Creatinine 1.59H, Estimat Glomerular Filtration Rate 34, BUN/Creatinine Ratio 19, Glucose Level 188H, Calcium Level 8.2L 02/18/20 00:44: Glucometer 199H 02/18/20 01:44: Glucometer 165H 02/18/20 02:32: White Blood Count 10.9, Red Blood Count 3.39L, Hemoglobin 9.7#L, Hematocrit 28L, Mean Corpuscular Volume 83, Mean Corpuscular Hemoglobin 29, Mean Corpuscular Hemoglobin Concent 35, Red Cell Distribution Width 12.1, Platelet Count 210, Mean Platelet Volume 11.4H, Neutrophils (%) (Auto) 54, Lymphocytes (%) (Auto) 36, Monocytes (%) (Auto) 10, Eosinophils (%) (Auto) 1, Basophils (%) (Auto) 0, Neutrophils # (Auto) 5.9, Lymphocytes # (Auto) 3.9, Monocytes # (Auto) 1.0, Eosinophils # (Auto) 0.1, Basophils # (Auto) 0.0, Sodium Level 133L, Potassium Level 3.7, Chloride Level 102, Carbon Dioxide Level 21, Anion Gap 10, Blood Urea Nitrogen 29H, Creatinine 1.51H, Estimat Glomerular Filtration Rate 36, BUN/Creatinine Ratio 19, Glucose Level 135H, Calcium Level 8.2L, Corrected Calcium 8.8, Phosphorus Level 3.4, Magnesium Level 1.9, Total Bilirubin 0.4, Aspartate Amino Transf (AST/SGOT) 12, Alanine Aminotransferase (ALT/SGPT) 12, Alkaline Phosphatase 24L, Troponin I 0.045H, Total Protein 5.8L, Albumin 3.3, Triglycerides Level 331H, Cholesterol Level 297H, LDL Cholesterol Direct 193H, VLDL Cholesterol 66H, HDL Cholesterol 29L, Beta-Hydroxybutyrate (Chem panel) 0.05 02/18/20 02:48: Glucometer 148H 02/18/20 03:43: Glucometer 115H 02/18/20 04:50: Glucometer 117H 02/18/20 06:08: Glucometer 229H 02/18/20 06:09: Sodium Level 131L, Potassium Level 3.6, Chloride Level 102, Carbon Dioxide Level 20L, Anion Gap 9, Blood Urea Nitrogen 27H, Creatinine 1.45H, Estimat Glomerular Filtration Rate 38, BUN/Creatinine Ratio 19, Glucose Level 209H, Calcium Level 7.9L 02/18/20 11:16: Glucometer 123H 02/18/20 14:37: Radiology NAME: COLLINS COTA [facility] REC#: [id number] PT STATUS: REG ER : 1970 PHYSICIAN: FRANNY KEEN ADMIT DATE: 02/17/20/ER Signed Date of Exam:02/17/20 CT HEAD/CERVICAL SPINE WO PROCEDURE: CT head and CT cervical spine without contrast. TECHNIQUE: Multiple contiguous axial images were obtained through the brain and cervical spine without the use of intravenous contrast. Sagittal and coronal reformations through the cervical spine were then performed. Auto Exposure Controls were utilized during the CT exam to meet ALARA standards for radiation dose reduction. INDICATION: Altered mental status. Unwitnessed fall downstairs COMPARISON: None FINDINGS: CT HEAD: The ventricles and cortical sulci appear age-appropriate. There is no midline shift or mass effect. No acute intracranial hemorrhage is seen. There is no CT evidence of acute territorial ischemia. The calvarium appears intact. Visualized paranasal sinuses are clear. CT CERVICAL SPINE: Alignment of the cervical spine appears normal with no spondylolisthesis. There are moderate degenerative changes at C5-C6 and C6-C7. Vertebral body heights and disc heights otherwise appear normal. No acute fracture is seen. No bony fragments or hyperdense fluid collections are seen in the spinal canal. There is increased noise in the lower cervical spine, but no soft tissue abnormality is seen. IMPRESSION: 1. No acute intracranial hemorrhage or calvarium fracture. 2. Degenerative changes in the cervical spine with no acute osseous abnormality seen. Dictated by: Dictated on workstation # [id number] Dict: 02/17/201742 Trans: 02/17/201955 [facility] [id number] Interpreted by: MAYRA SMALL MD Electronically signed by: MAYRA SMALL MD 02/17/201955 NAME: COLLINS COTA [facility] REC#: [id number] PT STATUS: REG ER : 1970 PHYSICIAN: FRANNY KEEN ADMIT DATE: 02/17/20/ER Signed Date of Exam:02/17/20 CT CHEST/ABDOMEN/PELVIS WO PROCEDURE: CT chest, abdomen, and pelvis without contrast. TECHNIQUE: Multiple contiguous axial images were obtained through the chest, abdomen, and pelvis without the use of intravenous contrast. Auto Exposure Controls were utilized during the CT exam to meet ALARA standards for radiation dose reduction. DATE: February 17, 2020. COMPARISON: Chest radiographs October 31, 2019. INDICATION: 49-year-old female, unwitnessed fall down stairs. Altered mental status. FINDINGS: There are limitations for evaluation of the abdominal organs, neoplastic processes, abscess, and limited evaluation of the vasculature relating to the lack of intravenous contrast. There is a 5 mm calcified left upper lobe granuloma on axial image 13. There is very mild dependent atelectasis in the lower lobes. There is no additional focal airspace consolidation. There is no pneumothorax. There is no pleural effusion. The more central airways are patent. The heart is not enlarged. There is no pericardial effusion. There is no identified abnormally enlarged mediastinal or axillary lymph node meeting CT size criteria for adenopathy. The liver is unremarkable in size and contour. The gallbladder is unremarkable. There is no biliary ductal dilation. The main pancreatic duct is not abnormally dilated. Limited noncontrast evaluation of the pancreas is unremarkable. The spleen is normal in size. The adrenal glands are unremarkable. Unremarkable appearance of the renal parenchyma. The urinary collecting systems are not distended. There is no identified renal or ureteral stone. There are pelvic calcifications consistent with phleboliths. There is a Jay catheter within the urinary bladder which is collapsed and not well evaluated. The uterus and adnexa are grossly unremarkable in appearance on CT assessment. The intestinal tract is not distended. There is no free intraperitoneal air. There is no evidence of acute appendicitis. There is no drainable fluid collection. There is no free pelvic fluid. There are atherosclerotic calcifications. There is no identified abnormally enlarged lymph node in the abdomen or pelvis which meets CT size criteria for adenopathy. There is a sclerotic lesion in the right side of the sacrum on axial image 95, measuring 8 mm in size which is not specific. There are degenerative changes of the spine. There is no identified acute fracture or other acute bony abnormality. IMPRESSION: CT chest, abdomen and pelvis: 1. No identified acute abnormality at the level of the chest, abdomen or pelvis. Dictated by: Dictated on workstation # [id number] Dict: 02/17/20 1830 Trans: 02/17/201854 [facility] [id number] Interpreted by: YAIMA GARCIA MD Electronically signed by: YAIMA GARCIA MD 02/17/201854 NAME: COLLINS COTA [facility] REC#: [id number] PT STATUS: ADM [place] : 1970 PHYSICIAN: FRANNY KEEN ADMIT DATE: 02/17/20/ICU Signed Date of Exam:02/17/20 CT ANGIO HEAD/NECK PROCEDURE: CT angiography of the head and CT angiography of the neck with and without contrast. TECHNIQUE: Contiguous noncontrast images were obtained from the skull base through the vertex. After intravenous contrast administration, helical CT angiography of the neck was performed. Source data was reformatted into 3D MIP projections. Delayed post contrast acquisition was also obtained. Auto Exposure Controls were utilized during the CT exam to meet ALARA standards for radiation dose reduction. INDICATION: Altered mental status. Unwitnessed fall down stairs. COMPARISON: CT head from the same day. FINDINGS: The patient's kidney function is poor, however, given the concern for stroke and the patient's mental status, concern for neurologic damage outweighed potential renal damage. This was confirmed by the ordering provider. The patient was reportedly unable to consent due to mental status. The patient will be admitted and receive intravenous fluids. There is atherosclerosis at the origin of the right common carotid artery without significant stenosis. The left common carotid artery is also widely patent. The right internal carotid artery demonstrates mild atherosclerosis. There is atherosclerosis in the proximal left internal carotid artery as well, with approximately 25% narrowing. The left vertebral artery appears slightly dominant. The vertebral arteries appear patent, bilaterally. The anterior cerebral arteries appear normal, bilaterally. The anterior communicating artery is seen. The middle cerebral arteries appear normal, bilaterally. The posterior communicating artery is seen, bilaterally. The posterior cerebral arteries are well seen, bilaterally. The superior cerebellar arteries appear normal. The basilar artery is somewhat diminutive, but appears patent. The dural sinuses demonstrate no filling defects to indicate thrombus. The calvarium appears intact. Visualized paranasal sinuses are clear. Soft tissues about the cervical spine demonstrate no acute abnormality. There are degenerative changes in the cervical spine with no acute fracture seen. There is a calcified granuloma in the left lung apex. No enhancing masses are seen in the brain parenchyma. IMPRESSION: No acute abnormality is seen in the arteries of the head and neck. There is mild atherosclerosis with approximately 25% narrowing in the left ICA, but no high-grade stenosis, dissection or occlusion is seen. Dictated by: Dictated on workstation # [id number] Dict: 02/17/202048 Trans: 02/17/202149 [facility] [id number] Interpreted by: MAYRA SMALL MD Electronically signed by: MAYRA SMALL MD 02/17/202149 NAME: COLLINS COTA [facility] REC#: [id number] PT STATUS: ADM [place] : 1970 PHYSICIAN: YAA KHAN DO ADMIT DATE: 02/17/20/ICU Signed Date of Exam:02/18/20 CHEST 1 VIEW, AP/PA ONLY Indication: Altered mental status Portable chest 3:39 AM Heart size and pulmonary vascularity are normal. Lungs are clear. There are no effusions or pneumothoraces. IMPRESSION: Negative chest Dictated by: Dictated on workstation # [id number] Dict: 02/18/20622 Trans: 02/18/20623 [id number] Interpreted by: LOR BARCENAS MD Electronically signed by: LOR BARCENAS MD 02/18/20623 A/P-Cardiology Assessment/Admission Diagnosis Recent AMS possibly r/t Cymbalta Sinus tachycardia of undetermined etiology Carotid arterial dz per CTA of the head on 02-17-2020: No acute abnormality is seen in the arteries of the head and neck. There is mild atherosclerosis with approximately 25% narrowing in the left ICA, but no high-grade stenosis, dissection or occlusion is seen. 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 Reported family h/o CAD Depression/anxiety GERD Reported h/o gastroparesis Discussion and Recomendations Recent AMS after starting Cymbalta per pt report - improved Start long acting BB for control of BP and HR Management of diabetes with DKA is per medical services Monitor lab closely Echocardiogram to eval structure and function Further recs will be based on her hospital course We would like to thank medical services for this consult Clinical Quality Measures DVT/VTE Risk/Contraindication: Risk Factor Score Per Nursin RFS Level Per Nursing on Admit: 1=Low/No VTE PPX RAMY DON February 18, 2020 09:23
--- NOTE | 2020-02-18 09:59 | CONSULTATION REPORT ---
DATE OF SERVICE: 02/18/2020 ATTENDING PRIMARY CARE PHYSICIAN: Dr. Dante Catherine. ADMITTING PHYSICIAN: Dr. Saldaña. HISTORY OF PRESENT ILLNESS: The patient is a 49-year-old female who reports that she had fallen downstairs at her home. She had reported that she felt lightheaded and fell. She is unsure of loss of consciousness and was able to ambulate on her own and this occurred one day prior to presentation to the Emergency Department. She states that she does have some areas of soreness; however, there are no areas of palpable masses, pain, ecchymosis to indicate any hematomas. Upon admission to the Emergency Department, she was found to be hyponatremic as well as found to have a severe elevation in blood glucose, most likely indicating a metabolic induced confusion, ataxia and fall. From a trauma standpoint, there does not appear to be any injury. She is awake and alert and moves all four extremities purposefully upon command with a Brenda coma scale of 15. No focal neurologic deficits. PAST MEDICAL HISTORY: Diabetes, hypertension, peripheral neuropathy, hypercholesterolemia, gastroesophageal reflux disease, macular degeneration, coronary artery disease. PAST SURGICAL HISTORY: section, eye surgery, orthopedic procedure. ALLERGIES: METRONIDAZOLE, AMLODIPINE, CLARITHROMYCIN, HYDROCODONE. MEDICATIONS: Albuterol 1 puff q.6 hours p.r.n. Atorvastatin 20 mg daily, cyclobenzaprine 10 mg q.8 hours p.r.n., doxazosin 4 mg daily, fluoxetine 20 mg daily, gabapentin 600 mg t.i.d., guaifenesin 600 mg b.i.d., hydralazine 25 mg t.i.d., detemir insulin 30 units b.i.d., lispro insulin 30 units q.i.d., lactulose p.r.n., metoprolol 100 mg daily, metronidazole 500 mg b.i.d., prednisone 20 mg daily, promethazine 25 mg p.r.n. SOCIAL HISTORY: Previous smoker, negative alcohol. FAMILY HISTORY: Father, myocardial infarction. VITAL SIGNS: Temperature 36.9, blood pressure 159/110, pulse 90, respirations 22, pulse ox 96% on room air. REVIEW OF SYSTEMS: This is well-nourished female currently in no acute distress. She is not experiencing any shortness of breath or difficulty breathing. No chest pain, palpitations, diaphoresis. She does have a chronic cough, does not report any new sputum production. Intermittent history of gastroesophageal reflux disease with epigastric burning sensation. No hematemesis, no coffee ground emesis. History of constipation, no red blood per rectum, no dark tarry stools. No fever, chills. No recent inadvertent weight loss. All other review of systems negative. PHYSICAL EXAMINATION: CHEST: Distant breath sounds bilaterally, decreased breath sounds in bilateral bases. HEART: Regular rate and rhythm, no murmurs. EXTREMITIES: A +1/3 bilateral lower extremity edema, negative Homans sign. HEENT: No scleral icterus. NECK: No cervical lymphadenopathy. ABDOMEN: Soft, nontender, nondistended. SKIN: Warm, dry. LABORATORY DATA: WBC 10.9, hemoglobin 9.7, hematocrit 28, platelets 210. Sodium 131, BUN 27, creatinine 1.45, glucose 209. ASSESSMENT AND PLAN: A 49-year-old female with uncontrolled hyperglycemia. Mental status changes and fall downstairs. The specifics of the fall are uncertain; however, she does not appear to have any major injuries, only right knee eccymosis. We will allow continued medical therapy and once ambulating well and able to proceed with activities of daily lifting, she may be discharged home from our standpoint. Job ID: [id number] DocumentID: [id number] Dictated Date: 02/18/2020 09:33:24 Manager Poker Date: 02/18/2020 09:59:00 Dictated By: MATT GOLDBERG MD [facility]
--- NOTE | 2020-02-18 10:31 | Consultation-Cardiology ---
HPI-Cardiology Cardiology Consultation: Date of Consultation 02/18/20 Time Seen by a Provider: 08:45 Date of Admission Attending Physician Yaa Saldaña DO Admitting Physician Dante Catherine MD Consulting Physician MAYDA GONZALES MD, MA, FACP, FACC, [facility], CCDS Physician requesting consult: Dr Saldaña HPI: Chief Complaint: Reason for consultation: Tachycardia, Hypertension, AMS HPI Ms. Perez is a 49 year old female admitted to ICU 12 from the ED. She is a poor historian. She states she was helping her grandson yesterday carry a bicycle down a flight of stairs when she lost her balance and fell hitting her head. She denies any LOC. She denies any syncope or near syncope. She states she has been taking Cymbalta for approx a week and has felt "crazy". She reports she has had difficulty thinking clearly, speaking and gen weakness since taking the Cymbalta. She also reports her fasting glucose has been high. She reports she takes insulin, but has not been taking it for several years. She denies any c/o CP, palpitations, dyspnea or LE swelling. She denies any n/v/d. She states she lives at home alone. She reports she has high blood pressure, but does not know what medication she takes, and states she has not been taking it as Rx. Review of Systems-Cardiology Review of Systems Constitutional: No chills, No fever; malaise Eyes: No vision change Ears/Nose/Throat: No epistaxis, No recent hearing loss Respiratory: As described under HPI Cardiovascular: As described under HPI Gastrointestinal: No constipation, No diarrhea, No nausea, No vomiting Genitourinary: No dysuria, No hematuria Skin: No rash on exposed areas, No ulcerations on exposed areas Psychiatric/Neurological: As described under HPI, anxiety, depression Hematologic: No bleeding abnormalities All Other Systems Reviewed Negative Unless Noted: Yes KYE-[id number]-Ihrhpb Hx Patient Social History 2nd Hand Smoke Exposure: No Recent Foreign Travel: No Recent Infectious Disease Expo: No Immunizations Up To Date Tetanus Booster (TDap): Unknown Past Medical History PMH As described under Assessment. Family Medical History Family Medical History: She reports her father passed from an KS at age 42. She reports a brother who had an KS, CAD and CM who was first diagnosed at age 58. She reports another brother with HTN. She reports her mother has HTN. Family History: Asthma G8 BROTHER G8 BROTHER Cardiovascular disease 19 FATHER G8 BROTHER Diabetes mellitus 19 MOTHER G8 BROTHER G8 BROTHER Kidney disease G8 BROTHER Myocardial infarction 19 FATHER Respiratory disorder G8 BROTHER G8 BROTHER Allergies and Home Medications Allergies Coded Allergies: metronidazole (Unverified Allergy, Mild, RASH, 10/30/19) MACULAR RASH amlodipine (Verified Allergy, Unknown, 10/25/19) clarithromycin (Verified Allergy, Unknown, 10/21/19) hydrocodone (Verified Allergy, Unknown, 10/21/19) Home Medications Acetaminophen 500 Mg Tablet, 500-1,000 MG PO Q6H PRN for PAIN-MILD, (Reported) Albuterol Sulfate 1 Puff Puff, 2 PUFF IH Q6H PRN for SHORTNESS OF BREATH, (Reported) Atorvastatin Calcium 20 Mg Tablet, 20 MG PO HS, (Reported) Cyclobenzaprine HCl 10 Mg Tablet, 10 MG PO Q8H PRN for SPASMS Prescribed by: FRANNY KEEN on 11/27/19 1701 Doxazosin Mesylate 4 Mg Tablet, 4 MG PO HS, (Reported) Fluoxetine HCl 20 Mg Capsule, 20 MG PO HS, (Reported) Gabapentin 600 Mg Tablet, 600 MG PO TID Prescribed by: KRISTINE GUZMAN on 11/01/19 1222 Guaifenesin 600 Mg Tab.er.12h, 600 MG PO BID Prescribed by: KRISTINE GUZMAN on 11/01/19 1222 Hydralazine HCl 25 Mg Tablet, 25 MG PO TID, (Reported) Insulin Detemir 100 Unit/1 Ml Insuln.pen, 30 UNIT SQ BID PRN for WHEN REMEMBERS, (Reported) LAST FILLED 11-23-18 - ADMITS SHE DOES NOT USE REGULARLY Insulin Lispro 100 Unit/1 Ml Insuln.pen, 30 UNIT SQ TIDAC, (Reported) Lactulose 10 Gm/15 Ml Solution, 15 ML PO TID PRN for CONSTIPATION-3RD LINE, (R eported) Metoprolol Succinate 100 Mg Tab.er.24h, 100 MG PO DAILY, (Reported) Metronidazole 500 Mg Tablet, 500 MG PO BID, (Reported) FILLED 10-25-2019 #6 / 3 DAY SUPPLY Ondansetron HCl 8 Mg Tablet, 8 MG PO Q6H PRN for NAUSEA/VOMITING-1ST LINE Prescribed by: KRISTINE GUZMAN on 11/01/19 1222 Oseltamivir Phosphate 30 Mg Capsule, 30 MG PO BID relabel Prescribed by: KRISTINE GUZMAN on 11/01/19 1222 Prednisone 20 Mg Tab, 40 MG PO DAILY Prescribed by: FRANNY KEEN on 11/27/19 1701 Promethazine HCl 25 Mg Tablet, 25 MG PO Q6H PRN for NAUSEA/VOMITING Prescribed by: AARON RAMIREZ on 12/21/19 1216 Patient Home Medication List Home Medication List Reviewed: Yes Physical Exam-Cardiology Physical Exam Vital Signs/I&O 02/17/20 02/17/20 02/17/20 02/17/20 22:30 22:35 22:45 23:15 Pulse 102 98 96 Resp 8 14 15 B/P (MAP) 174/92 (119) 132/80 (97) 141/79 (99) Pulse Ox 94 96 94 O2 Delivery Room Air Room Air Room Air Room Air 02/17/20 02/17/20 02/18/20 02/18/20 23:26 23:45 00:00 00:00 Temp 37.0 Pulse 95 96 Resp 14 17 B/P (MAP) 141/78 (99) 142/67 (92) Pulse Ox 95 96 O2 Delivery Room Air Room Air Room Air 02/18/20 02/18/20 02/18/20 02/18/20 01:00 01:00 02:00 03:00 Pulse 92 93 90 91 Resp 14 14 18 B/P (MAP) 134/71 (92) 149/86 (107) 166/96 (119) Pulse Ox 95 97 98 O2 Delivery Room Air Room Air Room Air 02/18/20 02/18/20 02/18/20 02/18/20 03:33 03:37 04:00 05:00 Temp 36.9 Pulse 90 90 Resp 21 15 B/P (MAP) 144/78 (100) 153/78 (103) Pulse Ox 97 98 O2 Delivery Room Air Room Air Room Air 02/18/20 02/18/20 02/18/20 02/18/20 06:00 07:00 07:00 08:00 Temp 37.6 Pulse 98 96 96 Resp 15 21 B/P (MAP) 119/83 (95) 128/77 (94) Pulse Ox 98 93 O2 Delivery Room Air Room Air 02/18/20 02/18/20 02/18/20 02/18/20 08:00 08:00 09:00 10:00 Pulse 94 90 85 Resp 17 22 9 B/P (MAP) 173/100 (124) 159/110 (126) 154/81 (105) Pulse Ox 97 96 96 O2 Delivery Room Air Room Air Room Air Room Air 02/18/20 00:00 Intake Total 3100 ml Output Total 625 ml Balance 2475 ml Capillary Refill : Less Than 3 Seconds Constitutional: AAO x 3, well-developed, well-nourished HEENT: PERRL, hearing is well preserved Neck: No carotid bruit; carotid pulses are 2 + bilaterally Respiratory: No accessory muscle use, No respiratory distress; chest expansion is symmetric, chest is bilaterally symmetric, lungs clear to auscultation Cardiovascular: regular rate-rhythm; No JVD; tachycardia Gastrointestinal: No tender; soft, round, audible bowel sounds Genital/Rectal: other (urinary catheter to DD; clear, straw colored urine) Extremities: no lower extremity edema bilateral Neurologic/Psychiatric: grossly intact (moves all extremities) Skin: No rash on exposed areas, No ulcerations on exposed areas; other (brusising to right upper leg; abrasions to fingers on left hand) Data Review Labs Laboratory Tests 02/17/20 16:42: Glucometer 455*H 02/17/20 16:50: White Blood Count 13.4H, Red Blood Count 4.28L, Hemoglobin 12.4, Hematocrit 35, Mean Corpuscular Volume 81, Mean Corpuscular Hemoglobin 29, Mean Corpuscular Hemoglobin Concent 36, Red Cell Distribution Width 12.1, Platelet Count 266, Mean Platelet Volume 12.0H, Neutrophils (%) (Auto) 80H, Lymphocytes (%) (Auto) 15, Monocytes (%) (Auto) 5, Eosinophils (%) (Auto) 0, Basophils (%) (Auto) 0, Neutrophils # (Auto) 10.7H, Lymphocytes # (Auto) 2.0, Monocytes # (Auto) 0.7, Eosinophils # (Auto) 0.0, Basophils # (Auto) 0.0, Prothrombin Time 13.4, INR Comment 1.0, Activated Partial Thromboplast Time 25, Sodium Level 125*L, Potassium Level 4.5, Chloride Level 89L, Carbon Dioxide Level 19L, Anion Gap 17H , Blood Urea Nitrogen 37H, Creatinine 2.02H, Estimat Glomerular Filtration Rate 26, BUN/Creatinine Ratio 18, Glucose Level 449*H, Calcium Level 9.8, Corrected Calcium 9.6, Magnesium Level 1.9, Total Bilirubin 0.7, Aspartate Amino Transf (AST/SGOT) 20, Alanine Aminotransferase (ALT/SGPT) 18, Alkaline Phosphatase 34L, Myoglobin 208.4H, Troponin I 0.037H, C-Reactive Protein High Sensitivity 1.68H, B-Type Natriuretic Peptide 80.7, Total Protein 8.1, Albumin 4.3, Amylase Level 24L, Lipase 8, TSH [place] Testing 2.41, Serum Alcohol < 10 02/17/20 16:55: Urine Color YELLOW, Urine Clarity CLEAR, Urine pH 6.0, Urine Specific [place] 1.015L, Urine Protein 3+H, Urine Glucose (UA) 3+H, Urine Ketones 1+H, Urine Nitrite NEGATIVE, Urine Bilirubin NEGATIVE, Urine Urobilinogen 0.2, Urine Leukocyte Esterase NEGATIVE, Urine RBC (Auto) 2+H, Urine RBC >100H, Urine WBC 2- 5, Urine Crystals NONE, Urine Bacteria TRACE, Urine Casts PRESENT, Urine Hyaline Casts 0-2H, Urine Mucus NEGATIVE, Urine Culture Indicated NO, Urine Opiates Screen NEGATIVE, Urine Oxycodone Screen NEGATIVE, Urine Methadone Screen NEGATIVE, Urine Propoxyphene Screen NEGATIVE, Urine Barbiturates Screen NEGATIVE, Ur Tricyclic Antidepressants Screen NEGATIVE, Urine Phencyclidine Screen NEGATIVE, Urine Amphetamines Screen NEGATIVE, Urine Methamphetamines Screen NEGATIVE, Urine Benzodiazepines Screen NEGATIVE, Urine Cocaine Screen NEGATIVE, Urine Cannabinoids Screen NEGATIVE 02/17/20 18:48: Glucometer 357H 02/17/20 19:24: Sodium Level 127L, Potassium Level 3.8, Chloride Level 92L, Carbon Dioxide Level 20L, Anion Gap 15H, Blood Urea Nitrogen 35H, Creatinine 1.85H, Estimat Glomerular Filtration Rate 29, BUN/Creatinine Ratio 19, Glucose Level 362H, Calcium Level 8.8, Troponin I 0.042H 02/17/20 20:00: 02/17/20 21:51: Glucometer 329H 02/17/20 22:43: Glucometer 275H 02/17/20 23:48: Glucometer 225H 02/18/20 00:18: Sodium Level 131L, Potassium Level 3.8, Chloride Level 100, Carbon Dioxide Level 20L, Anion Gap 11, Blood Urea Nitrogen 30H, Creatinine 1.59H, Estimat Glomerular Filtration Rate 34, BUN/Creatinine Ratio 19, Glucose Level 188H, Calcium Level 8.2L 02/18/20 00:44: Glucometer 199H 02/18/20 01:44: Glucometer 165H 02/18/20 02:32: White Blood Count 10.9, Red Blood Count 3.39L, Hemoglobin 9.7#L, Hematocrit 28L, Mean Corpuscular Volume 83, Mean Corpuscular Hemoglobin 29, Mean Corpuscular Hemoglobin Concent 35, Red Cell Distribution Width 12.1, Platelet Count 210, Mean Platelet Volume 11.4H, Neutrophils (%) (Auto) 54, Lymphocytes (%) (Auto) 36, Monocytes (%) (Auto) 10, Eosinophils (%) (Auto) 1, Basophils (%) (Auto) 0, Neutrophils # (Auto) 5.9, Lymphocytes # (Auto) 3.9, Monocytes # (Auto) 1.0, Eosinophils # (Auto) 0.1, Basophils # (Auto) 0.0, Sodium Level 133L, Potassium Level 3.7, Chloride Level 102, Carbon Dioxide Level 21, Anion Gap 10, Blood Urea Nitrogen 29H, Creatinine 1.51H, Estimat Glomerular Filtration Rate 36, BUN/Creatinine Ratio 19, Glucose Level 135H, Calcium Level 8.2L, Corrected Calcium 8.8, Phosphorus Level 3.4, Magnesium Level 1.9, Total Bilirubin 0.4, Aspartate Amino Transf (AST/SGOT) 12, Alanine Aminotransferase (ALT/SGPT) 12, Alkaline Phosphatase 24L, Troponin I 0.045H, Total Protein 5.8L, Albumin 3.3, Triglycerides Level 331H, Cholesterol Level 297H, LDL Cholesterol Direct 193H, VLDL Cholesterol 66H, HDL Cholesterol 29L, Beta-Hydroxybutyrate (Chem panel) 0.05 02/18/20 02:48: Glucometer 148H 02/18/20 03:43: Glucometer 115H 02/18/20 04:50: Glucometer 117H 02/18/20 06:08: Glucometer 229H 02/18/20 06:09: Sodium Level 131L, Potassium Level 3.6, Chloride Level 102, Carbon Dioxide Level 20L, Anion Gap 9, Blood Urea Nitrogen 27H, Creatinine 1.45H, Estimat Glomerular Filtration Rate 38, BUN/Creatinine Ratio 19, Glucose Level 209H, Calcium Level 7.9L A/P-Cardiology Assessment/Admission Diagnosis Recent AMS possibly r/t Cymbalta Sinus tachycardia of undetermined etiology Carotid arterial dz per CTA of the head on 02-17-2020: No acute abnormality is seen in the arteries of the head and neck. There is mild atherosclerosis with approximately 25% narrowing in the left ICA, but no high-grade stenosis, dissection or occlusion is seen. 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 Sinus tach doesn't appear to be primarily of cardiac origin Start long acting BB for control of BP and HR Management of diabetes with DKA is per medical services Monitor lab closely Echocardiogram to eval structure and function Further recs will be based on her hospital course We would like to thank Medical services for this consult Clinical Quality Measures DVT/VTE Risk/Contraindication: Risk Factor Score Per Nursin RFS Level Per Nursing on Admit: 1=Low/No VTE PPX MAYDA GONZALES MD FACP FAC CCDS February 18, 2020 10:31
--- NOTE | 2020-02-18 11:24 | NUR ---
CM/SS: Visited with pt as to plan for discharge Plan: To be determined Summary: Pt reports having problems with her blood sugar and some reaction to taking her Cymbalta. Pt reports she wants to go back to taking Celexa. Pt reports being stubborn and not wanting to do what she needs to do. Pt reports that she just does not do what she needs to do as she just does not feel like it. Pt is encouraged to follow what she needs to do and be compliant. Pt is educated on the effects of diabetes on the body, related to her kidneys, eyes, etc. Pt reports that she knows that she need to do better. 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 Pt is reminded to encourage her daughter to seek alternate care for the children, due to being in and out of the hospital. Pt is also encouraged to live for her mother as her mother has already lost one adult child to illness. Pt becomes tearful , and shares that she will need to do better. Pt is encouraged to do so. This worker will follow up.
--- NOTE | 2020-02-18 11:35 | Occupational Therapy Eval ---
OT Evaluation-General/PLF Medical Diagnosis Admission Date February 17, 2020 at 20:30 Medical Diagnosis: s/p fall, hyperglycemia Onset Date: February 16, 2020 Therapy Diagnosis Therapy Diagnosis: Decreased ADL status Height/Weight Height (Feet): 5 Height (Inches): 5.00 Weight (Pounds): 221 Weight (Ounces): 4.8 Precautions Precautions/Isolations: Fall Prevention, Standard Precautions Referral Physician: Yaa Saldaña DO Referral Reason: Activity Tolerance, Self Care, Evaluation/Treatment, Strengthening/ROM Medical History Pertinent Medical History: DM, HTN, Neuropathy Additional Medical History Hx of MRSA, neuropahty, gastroesophageal reflux, ID DM, macular degeneration, anx/ depression, L foot wound (amputations of toes), HTN, CAD Current History Pt states she fell from stairs assisting grandson (6 y/o) carry his bike. Pt expresses she "overbalanced" and fell from stairs. No LOC, CT negative. Reviewed History: Yes Social History Home: Single Level Current Living Status: Alone ADL-Prior Level of Function SCALE: Activities may be completed with or without assistive devices. 0-Dujuetxkmt-damjmho completes the activity by him/herself with no assistance from a helper. 5-Set-up or Clean-up Assistance-helper sets up or cleans up; patient completes activity. [place] assists only prior to or following the activity. 4-Supervision or Touching Assistance-helper provides verbal cues and/or touching/steadying and/or contact guard assistance as patient completes activity. Assistance may be provided throughout the activity or intermittently. 3-Partial/Moderate Assistance-helper does LESS THAN HALF the effort. [place] lifts, holds or supports trunk or limbs, but provides less than half the effort. 2-Substantial/Maximal Assistance-helper does MORE THAN HALF the effort. [place] lifts or holds trunk or limbs and provides more than half the effort. 2-Ufqgcqlfk-fwctxs does ALL the effort. Patient does none of the effort to complete the activity. Or, the assistance of 2 or more helpers is required for the patient to complete the activity. If activity was not attempted, code reason: 7-Patient Refused. 9-Not Applicable-not attempted and the patient did not perform the activity before the current illness, exacerbation or injury. 10-Not Attempted due to Environmental Limitations-(lack of equipment, weather restraints, etc.). 88-Not Attempted due to Medical Conditions or Safety Concerns. 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 Per PT, pt off balance at times but able to self-correc t. Pt stands for ~3 min as she provides med hx. Pt oriented to person/ situation only. Pt slurs words throughout, progressively declines in articulation through session. Pt agrees to therapy, during session DO states pt to d/c home this afternoon. Mental Status/Objective Patient Orientation: Person, Situation Current Hand Dominance: Right Upper Extremity ROM WFL BUE Upper Extremity Coordination WFL BUE Upper Extremity Sensation Neuropathy BUE Upper Extremity Strength WFL BUE ADL-Treatment Eating (QC): 6 (per pt) Oral Hygiene (QC): 6 (per pt.) On/Off Footwear (QC): 6 Other Treatments Pt stands without LOB for ~3 min. Pt easily distractible, slurring words intermittently. 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 Pt expresses LOB is somewhat her norm but was increased by medication. Pt denies any exercise program, stating she needs to. Pt educated on balance activities in a safe manner (holding on to back of sturdy surface) to continue progress. Pt states insurance does not cover OP PT, as they had tried in the past. Pt states she do es not utilize oven, but microwave at the home. She drives, but currently does not as daughter's car in not insured at this time. Pt's ROM/ activity WFL, though cognition/ safety awareness may still be impaired. Pt to take taxi to daughters home upon d/c. Pt's nurse notified of increased slurring/ cognitive status. All needs met, call light in reach. Education OT Patient Education: Purpose of tx/functional activities, Safety issues Teaching Recipient: Patient Teaching Methods: Discussion Response to Teaching: Verbalize Understanding OT [place] Goals Assisted Goals 1=Demonstrate adherence to instructed precautions during ADL tasks. 2=Patient will verbalize/demonstrate understanding of assistive devices/modifications for ADL. 3=Patient will improve strength/tolerance for activity to enable patient to perform ADL's. OT Education/Plan Problem List/Assessment Assessment: No Skilled OT Needs ID'd (Pt to d/c) Discharge Recommendations Plan/Recommendations: Discharge/Goals Met Therapy Discharge Recommendati: Intermittent Supervision, Home & Family Treatment Plan/Plan of Care Treatment,Training & Education: Yes Plan of Care: OTHER (eval only on this date, pt to d/c today.) Treatment Duration: February 18, 2020 Frequency: 1 time per week (eval only, pt to d/c on this date.) Time/GCodes Start Time: 11:15 Stop Time: 11:27 Total Time Billed (hr/min): 12 Billed Treatment Time 1, EVL (12) ADONIS RUST OTR February 18, 2020 11:35
--- NOTE | 2020-02-18 11:41 | Physical Therapy Evaluation ---
PT Evaluation-General Medical Diagnosis Admission Date February 17, 2020 at 20:30 Medical Diagnosis: AMS/hyperglycemia Onset Date: February 17, 2020 Therapy Diagnosis Therapy Diagnosis: debility Height/Weight Height (Feet): 5 Height (Inches): 5.00 Weight (Pounds): 221 Weight (Ounces): 4.8 Precautions Precautions/Isolations: Fall Prevention, Standard Precautions Referral Physician: Piper Reason for Referral: Evaluation/Treatment Medical History Pertinent Medical History: DM, HTN, Neuropathy, Renal Insufficiency Additional Medical History toe amputations Current History ER secondary to AMS and fall down stairs carrying a bicycle. Reviewed History: Yes Social History Home: Apartment Current Living Status: Other Family Entry Into Home: Stairs With Railing PT Steps Into Home: 12 Prior Prior Level of Function SCALE: Activities may be completed with or without assistive devices. 2-Mxlxphgfsp-kgsdekc completes the activity by him/herself with no assistance from a helper. 5-Set-up or Clean-up Assistance-helper sets up or cleans up; patient completes activity. [place] assists only prior to or following the activity. 4-Supervision or Touching Assistance-helper provides verbal cues and/or touching/steadying and/or contact guard assistance as patient completes activity. Assistance may be provided throughout the activity or intermittently. 3-Partial/Moderate Assistance-helper does LESS THAN HALF the effort. [place] lifts, holds or supports trunk or limbs, but provides less than half the effort. 2-Substantial/Maximal Assistance-helper does MORE THAN HALF the effort. [place] lifts or holds trunk or limbs and provides more than half the effort. 6-Gagdqbizz-mfcrym does ALL the effort. Patient does none of the effort to complete the activity. Or, the assistance of 2 or more helpers is required for the patient to complete the activity. If activity was not attempted, code reason: 7-Patient Refused. 9-Not Applicable-not attempted and the patient did not perform the activity before the current illness, exacerbation or injury. 10-Not Attempted due to Environmental Limitations-(lack of equipment, weather restraints, etc.). 88-Not Attempted due to Medical Conditions or Safety Concerns. Bed Mobility: 6 Transfers (B,C,W/C): 6 Gait: 6 Stairs: 6 Indoor Mobility (Ambulation): Independent Stairs: Independent PT Evaluation-Current Subjective Patient is very agreeable to participate with PT. No c/o. Pain Numeric Pain Scale: 0-No Pain Location: No Pain Reported Objective Patient Orientation: Normal For Age ROM/Strength ROM Lower Extremities bilateral LE WFL Strength Lower Extremities 4/5 grossly bilateral LE Integumentary/Posture Integumentary refer to nursing notes ( noted contusion right quad from fall down stair) Bowel Incontinence: No Bladder Incontinence: No Posture WFL Neuromuscular (Tone, Coordination, Reflexes) grossly intact Sensory Vision: Functional Hearing: Functional Sensation Right Lower Extremit: Impaired Sensation Left Lower Extremity: Impaired Transfers Roll Left to Right (QC): 6 Sit to Lying (QC): 6 Lying to Sitting/Side of Bed(Q: 6 Sit to Stand (QC): 6 Chair/Dtk-sg-Xmcyj Xfer(QC): 6 Gait Does the Patient Walk?: Yes Mode of Locomotion: Walk Anticipated Mode of Locomotion: Walk Walk 10 feet (QC): 6 Walk 50 ft with 2 Turns(QC): 6 Walk 150 ft (QC): 6 Distance: 400' Gait Assistive Device: None Comments/Gait Description steady, gait sequence Wheelchair Training Does the Pt Use a Wheelchair?: No Balance Sitting Static: Normal Sitting Dynamic: Normal Standing Static: Good Standing Dynamic: Good Assessment/Needs 49 y.o. female, is currently at independent [facility] with all gross motor skills and does not require skilled therapy intervention. Rehab Potential: Fair PT Plan Treatment/Plan Treatment Plan: Discontinue PT, goals met Treatment Duration: February 18, 2020 Frequency: 1 time per week Estimated Hrs Per Day: .25 hour per day Patient and/or Family Agrees t: Yes Time/GCodes Time In: 1130 Time Out: 1140 Total Billed Treatment Time: 10 Total Billed Treatment 1 visit EVLowC 10 min AMTIA ATKINSON PT February 18, 2020 11:41
[2020-02-18] MEDS ORDERED: MTP100TCR PO (11:52)
--- NOTE | 2020-02-18 11:53 | NUR ---
IRF Evaluation Order received to evaluate patient for the ARU. Chart review complete and it appears patient is ambulating (400ft, no AD), transferring, completing bed mobility and ADLs with independence; therefore, patient does not require intensive therapies. Thank you for this referral.
--- NOTE | 2020-02-18 11:53 | Short Stay Summary-Hospitalist ---
History of Present Illness HPI/Chief Complaint CC: AMS from metabolic encephalopathy HPI: This is a 49yoWF clinic patient of [facility] known to me from frequent hospital stays due to DM non-compliance and multiple other co-morbidities who presented to the ER with AMS and found to have severely elevated glucose of 700+ with mild HCO3 decrease so she was placed on insulin drip after IVF initiated for ARF. SW was consulted due to severe non-compliance. Stroke protocol assessed to have no concern for CVA. Today she is doing well and walking with PT and OT so catheter will be DC and prepare patient for DC. Source: patient Exam Limitations: no limitations Date Seen 02/18/20 Time Seen by a Provider: 10:00 Attending Physician Yaa Saldaña David F MD Referring Physician Date of Admission February 17, 2020 at 20:30 Home Medications & Allergies Home Medications Reviewed patient Home Medication Reconciliation performed by pharmacy medication reconciliations electronic bench technician and/or nursing. Patients Allergies have been reviewed. Allergies Allergies Coded Allergies metronidazole (Unverified Allergy, Mild, RASH, 10/30/19) MACULAR RASH amlodipine (Verified Allergy, Unknown, 10/25/19) clarithromycin (Verified Allergy, Unknown, 10/21/19) hydrocodone (Verified Allergy, Unknown, 10/21/19) Past Samhrxi-Dyuakw-Pluwmw Hx Past Med/Social Hx: Reviewed Nursing Past Med/Soc Hx, Reviewed and Corrections made Patient Social History Marrital Status: single Employed/Student: unemployed Smoking Status: Former Smoker 2nd Hand Smoke Exposure: No Recent Foreign Travel: No Contact w/other who traveled: No Recent Hopitalizations: No Recent Infectious Disease Expo: No Immunizations Up To Date Tetanus Booster (TDap): Unknown Seasonal Allergies Seasonal Allergies: Yes Past Medical History Surgeries: Abdominal, Section, Eye Surgery, Orthopedic Cardiac: Hypertension Neurological: Neuropathy Menopausal Gastrointestinal: Gastroesophageal Reflux Endocrine: Diabetes, Insulin dep HEENT: Macular Degeneration Psychosocial: Anxiety Skin/Integumentary: Recent Skin Changes History of Blood Disorders: No Family History Asthma G8 BROTHER G8 BROTHER Cardiovascular disease 19 FATHER G8 BROTHER Diabetes mellitus 19 MOTHER G8 BROTHER G8 BROTHER Kidney disease G8 BROTHER Myocardial infarction 19 FATHER Respiratory disorder G8 BROTHER G8 BROTHER No Pertinent Family Hx Review of Systems Constitutional: see HPI, weakness Psychiatric/Neurological: Weakness Physical Exam Physical Exam Vital Signs Vital Signs - First Documented 02/17/20 16:40 Temp 36.2 Pulse 114 Resp 20 B/P (MAP) 140/114 (123) Pulse Ox 100 O2 Delivery Room Air Capillary Refill : Less Than 3 Seconds Height, Weight, BMI Height: 5'5.00" Weight: 221lbs. 4.8oz. 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 Short Stay Diagnosis Discharge Diagnosis-Short Stay Admission Diagnosis Assessment: Metabolic encephalopathy with AMS Severe hyperglycemia HHNKS h/o left DM foot ulcer Non-compliance DM OOC HTN OOC Migraines Gastroparesis Vision loss due to DM OOC CRI Final Discharge Diagnosis Assessment: Metabolic encephalopathy with AMS Severe hyperglycemia HHNKS h/o left DM foot ulcer Non-compliance DM OOC HTN OOC Migraines Gastroparesis Vision loss due to DM OOC CRI Conclusion Plan DC home Clonidine for elevated BP Non-compliance precludes anything but a poor prognosis Diagnosis/Problems Diagnosis/Problems (1) Fall down stairs Status: Acute Qualifiers: Qualified Codes: W10.8XXA - Fall (on) (from) other stairs and steps, initial encounter (2) Altered mental status Status: Acute Qualifiers: Qualified Codes: R41.0 - Disorientation, unspecified (3) Metabolic encephalopathy Status: Acute (4) Hyperglycemia Status: Acute (5) Non compliance w medication regimen Status: Acute (6) Nausea & vomiting Qualifiers: Qualified Codes: R11.2 - Nausea with vomiting, unspecified (7) Acute renal insufficiency (8) Diabetes mellitus, type 2 Status: Chronic (9) Hypertension Status: Chronic (10) Chronic kidney disease (CKD) Clinical Quality Measures DVT/VTE Risk/Contraindication: Risk Factor Score Per Nursin RFS Level Per Nursing on Admit: 1=Low/No VTE PPX YAA SALDAÑA DO February 18, 2020 11:53
[2020-02-18] MEDS ORDERED: cloNIDine 0.1 MG (CATAPRES) TAB ONE (12:44)
[2020-02-18] MEDS ORDERED: cloNIDine 0.1 MG (CATAPRES) TAB PO NR (13:00)
[2020-02-18] MEDS ORDERED: doxAzosin 4 MG (CARDURA) TAB ONE (14:56)
[2020-02-18] MEDS ORDERED: hydrALAZINE (APRESOLINE) 25 MG TAB ONE (14:56)
[2020-02-18] MEDS ORDERED: hydrALAZINE (APRESOLINE) 25 MG TAB PO NR (15:00)
--- NOTE | 2020-02-18 15:05 | NUR ---
RD ASSESSMENT PMHx: DM; HTN; AMS; GERD; CKD; hx of non-compliance with medications PT INTERACTION: Pt was awake and pleasant during nutrition assessment. Note pt has AMS and is a poor historian, per chart review. Pt states current appetite is "no good." Note avg PO intake 38% x2meal, per chart review. Pt states following regular diet at home, and has no issues with chewing/swallowing food. Pt states recurrent issues with nausea and vomiting. Pt states no recent issues with constipation or diarrhea, and is unsure of last BM. Note pt not currently on bowel regimen, per chart review. Pt states unsure of recent wt changes. Note recent 2# wt loss x2mon, per chart review. Pt states unsure of current DM management. Note pt has been non-compliant with past medications, per chart review. Note recent HbA1c of 9.1 on 10/15/2019, per chart review. Note presence of wound on left foot, per chart review. ABNORMAL NUTRITION-RELATED LAB VALUES LOW: Na 131; Ca 7.9 HIGH: BUN 27; cr 1.45; glu 209 Est. kcal needs: 3493-3696 kcal | 15-18 kcal/kg Est. Pro needs: 97-116 g Pro | 1.0-1.2 g Pro/kg PES STATEMENT: Inadequate oral intake (NI-2.1) related to loss of appetite | nausea | vomiting as evidenced by pt interview | chart review | avg PO intake 38% x2meal Inadequate protein intake (NI-5.6.1) related to increased protein needs as evidenced by presence of wounds (left foot) INTERVENTION: Continue with current diet order of CHO 60g/m 3snack diet. Add Ensure HP (vary) to meals TID. Provides 160 kcal and 16 g Pro per serving for perceived benefit to wound healing. Due to pt's AMS, did not offer DM education at this time. Will continue to follow and reassess as pt needs, intake, and status change. MONITOR/EVALUATE: PO Intake; Plan of Care; Hydration Status; Weight Status; Lab Values Veronica Mariee, MS, RD, LD
[2020-02-18 15:29] LABS: POTASSIUM 4.3 MMOL/L (3.6-5.0)
[2020-02-18 15:31] LABS: CALCIUM 8.8 MG/DL (8.5-10.1)
[2020-02-18 15:35] LABS: CREATININE SERUM 1.45 MG/DL (0.60-1.30)
--- NOTE | 2020-02-18 20:27 | NUR ---
PT IS ABLE TO ANSWER ALL QUESTIONS APPROPRIATELY AND IS A/0 X4. THIS RN SPOKE WITH DR. LORENZANA TO CONFIRM D/C. THIS RN CALLED DIANA, THE PATIENTS DAUGHTER AND SHE IS COMING TO PICK HER UP. PT VERBALIZES NO COMPLAINTS.
[2020-02-18] MEDS ORDERED: doxAzosin 1 MG (CARDURA) TAB PO NR (21:00)
[2020-02-18] MEDS ORDERED: hydrALAZINE (APRESOLINE) 25 MG TAB PO SCH (22:00)
[2020-02-19] MEDS ORDERED: FLUCONAZOLE 200 MG/100 ML 50 ML, EMPTY IV BAG (PVC) 1 EA IV SCH ×2 (09:00)
[2020-02-19] MEDS ORDERED: doxAzosin 2 MG (CARDURA) TAB PO SCH (21:00)
== END 2020-02-18 11:48 | disposition home or self-care (01) ==
LOC: EDUNIT# 16:27 → ER 16:30 → UNDOADMOB 20:30 → ICU 20:30 → UNDODISOB 02-18 20:45
PROVIDERS: ADMIT Internal Medicine; ATTEND Internal Medicine
DX: G93.41 Metabolic encephalopathy (principal); R41.82 Altered mental status, unspecified; E11.65 Type 2 diabetes mellitus with hyperglycemia; E11.22 Type 2 diabetes mellitus with diabetic chronic kidney disease; E11.10 Type 2 diabetes mellitus with ketoacidosis without coma; E11.42 Type 2 diabetes mellitus with diabetic polyneuropathy; E78.00 Pure hypercholesterolemia, unspecified; I12.9 Hypertensive chronic kidney disease with stage 1 through stage 4 chronic kidney disease, or unspecified chronic kidney disease; I25.10 Atherosclerotic heart disease of native coronary artery without angina pectoris; N18.3 Chronic kidney disease, stage 3 (moderate); H54.7 Unspecified visual loss; K21.9 Gastro-esophageal reflux disease without esophagitis; J30.9 Allergic rhinitis, unspecified; G43.909 Migraine, unspecified, not intractable, without status migrainosus; B37.3 Candidiasis of vulva and vagina; K31.84 Gastroparesis; F41.9 Anxiety disorder, unspecified; W10.8XXA Fall (on) (from) other stairs and steps, initial encounter; Z88.5 Allergy status to narcotic agent; Z88.1 Allergy status to other antibiotic agents; Z88.8 Allergy status to other drugs, medicaments and biological substances; Z79.4 Long term (current) use of insulin; Z91.19 Patient's noncompliance with other medical treatment and regimen; Z89.429 Acquired absence of other toe(s), unspecified side
CPT/HCPCS: 36415; 51702; 70450; 70496; 70498; 71045; 71250; 72125; 74176; 80048; 80053; 80061; 80306; 80320; 81000; 82010; 82150; 82962; 83036; 83690; 83735; 83874; 83880; 84100; 84443; 84484; 85025; 85610; 85730; 86141; 87081; 93005; 93306; 96361; 96374; 96375; G0378

== ENCOUNTER 2020-09-08 15:44 | Emergency (ER) | payer MEDICAID ==
[~2020-09-08] VITALS: Ht 165 cm; Wt 97.7 kg
[~2020-09-08 15:44] MED LIST changes: +AMLO-250 PO; +AMLO-251 PO; -AMLO10TA7 PO; -AMLO5TAB9 PO
[2020-09-08] MEDS ORDERED: LACTATED RINGERS 1,000 ML IV ONE (15:51)
--- NOTE | 2020-09-08 15:59 | ED GI ---
General Stated Complaint: NAUSEA;DIZZINESS Source of Information: Patient Exam Limitations: No Limitations History of Present Illness Date Seen by Provider: Sep 08, 2020 Time Seen by Provider: 15:40 Initial Comments Patient presents ER by private conveyance with chief complaint of a couple days of constipation and now nausea and vomiting. She is a diabetic and that her blood sugars of been out of control. She is having some general abdominal discomfort. No history of pancreatitis. Does not drink alcohol. No dysuria fevers chills cough shortness of air. History of hysterectomy. Allergies and Home Medications Allergies Coded Allergies: metronidazole (Unverified Allergy, Mild, RASH, 10/30/19) MACULAR RASH amlodipine (Verified Allergy, Unknown, 10/25/19) clarithromycin (Verified Allergy, Unknown, 10/21/19) hydrocodone (Verified Allergy, Unknown, 10/21/19) Home Medications Acetaminophen 500 Mg Tablet, 500-1,000 MG PO Q6H PRN for PAIN-MILD, (Reported) Albuterol Sulfate 1 Puff Puff, 2 PUFF IH Q6H PRN for SHORTNESS OF BREATH, (Reported) Atorvastatin Calcium 20 Mg Tablet, 20 MG PO HS, (Reported) Doxazosin Mesylate 4 Mg Tablet, 4 MG PO HS, (Reported) Fluoxetine HCl 20 Mg Capsule, 20 MG PO HS, (Reported) Gabapentin 600 Mg Tablet, 600 MG PO TID Prescribed by: KRISTINE GUZMAN on 11/01/19 1222 Guaifenesin 600 Mg Tab.er.12h, 600 MG PO BID Prescribed by: KRISTINE GUZMAN on 11/01/19 1222 Hydralazine HCl 25 Mg Tablet, 25 MG PO TID, (Reported) Insulin Detemir 100 Unit/1 Ml Insuln.pen, 30 UNIT SQ BID PRN for WHEN REMEMBERS, (Reported) LAST FILLED 11-23-18 - ADMITS SHE DOES NOT USE REGULARLY Insulin Lispro 100 Unit/1 Ml Insuln.pen, 30 UNIT SQ TIDAC, (Reported) Lactulose 10 Gm/15 Ml Solution, 15 ML PO TID PRN for CONSTIPATION-3RD LINE, (Reported) Metoclopramide HCl 10 Mg Tablet, 10 MG PO Q6H PRN for NAUSEA/VOMITING-2ND LINE Prescribed by: RAJIV FLORIAN on 09/08/20 1735 Metoprolol Succinate 100 Mg Tab.er.24h, 100 MG PO DAILY Prescribed by: DANNY KHAN on 02/18/20 1152 Ondansetron HCl 8 Mg Tablet, 8 MG PO Q6H PRN for NAUSEA/VOMITING-1ST LINE Prescribed by: KRISTINE GUZMAN on 11/01/19 1222 Patient Home Medication List Home Medication List Reviewed: Yes Review of Systems Review of Systems Constitutional: No chills, No diaphoresis EENTM: No Blurred Vision, No Double Vision Respiratory: Denies Cough, Denies Shortness of Air Cardiovascular: Denies Chest Pain Gastrointestinal: Denies Abdomen Distended, Denies Abdominal Pain; Constipated, Nausea, Poor Fluid Intake, Vomiting Genitourinary: Denies Burning, Denies Discharge Musculoskeletal: No back pain, No joint pain Skin: No pruritus, No rash All Other Systems Reviewed Negative Unless Noted: Yes Past [id number]-Zgizgv-Gtkdml Hx Patient Social History Alcohol Use: Denies Use Recreational Drug Use: No Smoking Status: Never a Smoker 2nd Hand Smoke Exposure: No Recent Foreign Travel: No Contact w/Someone Who Travel: No Recent Hopitalizations: No Immunizations Up To Date Tetanus Booster (TDap): Unknown Seasonal Allergies Seasonal Allergies: Yes Past Medical History Surgeries: Yes Abdominal, Section, Eye Surgery, Orthopedic Respiratory: No Cardiac: Yes Hypertension Neurological: Yes (PERIPHERAL NEUROPATHY) 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 Genitourinary: No Gastrointestinal: Yes Gastroesophageal Reflux Musculoskeletal: No Endocrine: Yes Diabetes, Insulin dep HEENT: Yes (RETINOPATHY) Macular Degeneration Cancer: No Psychosocial: Yes Anxiety Integumentary: Yes (L foot wound) Recent Skin Changes Blood Disorders: No Family Medical History Asthma G8 BROTHER G8 BROTHER Cardiovascular disease 19 FATHER G8 BROTHER Diabetes mellitus 19 MOTHER G8 BROTHER G8 BROTHER Kidney disease G8 BROTHER Myocardial infarction 19 FATHER Respiratory disorder G8 BROTHER G8 BROTHER No Pertinent Family Hx Physical Exam Vital Signs Vital Signs - First Documented 09/08/20 15:46 Temp 35.9 Pulse 91 Resp 20 B/P (MAP) 210/115 (146) Pulse Ox 98 O2 Delivery Room Air Capillary Refill : Height/Weight/BMI Height: 5'5.00" Weight: 221lbs. 4.8oz. 100.851226us; 28.00 BMI Method:Stated General Appearance: WD/WN, mild distress HEENT: PERRL/EOMI, pharynx normal Neck: full range of motion, normal inspection Respiratory: lungs clear, normal breath sounds, no respiratory distress, no accessory muscle use Cardiovascular: normal peripheral pulses, regular rate, rhythm Peripheral Pulses: 2+ Radial Pulses (R), 2+ Radial Pulses (L) Gastrointestinal: normal bowel sounds, soft, tenderness (general, mild) Extremities: no pedal edema, normal capillary refill Neurologic/Psychiatric: alert, normal mood/affect, oriented x 3 Skin: normal color, warm/dry Progress/Results/Core Measures Results/Orders Lab Results Laboratory Tests Test 09/08/20 15:58 09/08/20 16:45 Range/Units White Blood Count 9.3 4.3-11.0 10^3/uL Red Blood Count 3.65 L 3.80-5.11 10^6/uL Hemoglobin 10.7 L 11.5-16.0 g/dL Hematocrit 33 L 35-52 % Mean Corpuscular Volume 90 80-99 fL Mean Corpuscular Hemoglobin 29 25-34 pg Mean Corpuscular Hemoglobin Concent 33 32-36 g/dL Red Cell Distribution Width 11.7 10.0-14.5 % Platelet Count 216 130-400 10^3/uL Mean Platelet Volume 11.6 9.0-12.2 fL Immature Granulocyte % (Auto) 0 % Neutrophils (%) (Auto) 70 42-75 % Lymphocytes (%) (Auto) 24 12-44 % Monocytes (%) (Auto) 5 0-12 % Eosinophils (%) (Auto) 0 0-10 % Basophils (%) (Auto) 0 0-10 % Neutrophils # (Auto) 6.5 1.8-7.8 10^3/uL Lymphocytes # (Auto) 2.3 1.0-4.0 10^3/uL Monocytes # (Auto) 0.5 0.0-1.0 10^3/uL Eosinophils # (Auto) 0.0 0.0-0.3 10^3/uL Basophils # (Auto) 0.0 0.0-0.1 10^3/uL Immature Granulocyte # (Auto) 0.0 0.0-0.1 10^3/uL Sodium Level 139 135-145 MMOL/L Potassium Level 5.1 H 3.6-5.0 MMOL/L Chloride Level 103 98-107 MMOL/L Carbon Dioxide Level 24 21-32 MMOL/L Anion Gap 12 5-14 MMOL/L Blood Urea Nitrogen 48 H 7-18 MG/DL Creatinine 2.08 H 0.60-1.30 MG/DL Estimat Glomerular Filtration Rate 25 BUN/Creatinine Ratio 23 Glucose Level 131 H 70-105 MG/DL Calcium Level 9.1 8.5-10.1 MG/DL Corrected Calcium 9.1 8.5-10.1 MG/DL Total Bilirubin 0.4 0.1-1.0 MG/DL Aspartate Amino Transf (AST/SGOT) 22 5-34 U/L Alanine Aminotransferase (ALT/SGPT) 37 0-55 U/L Alkaline Phosphatase 41 40-136 U/L C-Reactive Protein High Sensitivity 1.56 H 0.00-0.50 MG/DL Total Protein 7.9 6.4-8.2 GM/DL Albumin 4.0 3.2-4.5 GM/DL Lipase 11 8-78 U/L Urine Color YELLOW Urine Clarity CLEAR Urine pH 6.0 5-9 Urine Specific [place] >=1.030 1.016-1.022 Urine Protein 3+ H NEGATIVE Urine Glucose (UA) NEGATIVE NEGATIVE Urine Ketones NEGATIVE NEGATIVE Urine Nitrite NEGATIVE NEGATIVE Urine Bilirubin NEGATIVE NEGATIVE Urine Urobilinogen 0.2 < = 1.0 MG/DL Urine Leukocyte Esterase NEGATIVE NEGATIVE Urine RBC (Auto) TRACE-I NEGATIVE Urine RBC RARE /HPF Urine WBC 0-2 /HPF Urine Squamous Epithelial Cells 5-10 /HPF Urine Crystals NONE /LPF Urine Bacteria FEW H /HPF Urine Casts PRESENT /LPF Urine Hyaline Casts 0-2 H /LPF Urine Mucus SMALL H /LPF Urine Culture Indicated NO My Orders Orders - RAJIV FLORIAN Ed Iv/Invasive Line Start (09/08/20 15:51) Lactated Ringers (Lr 1000 Ml Iv Solution (09/08/20 15:51) Metoclopramide Injection (Reglan Injecti (09/08/20 16:00) Diphenhydramine Injection (Benadryl Inje (09/08/20 16:00) Cbc With Automated Diff (09/08/20 15:51) Comprehensive Metabolic Panel (09/08/20 15:51) Hs C Reactive Protein (09/08/20 15:51) Ua Culture If Indicated (09/08/20 15:51) Lipase (09/08/20 15:51) Pantoprazole Injection (Protonix Injecti (09/08/20 16:00) Hydralazine Injection (Apresoline Inject (09/08/20 16:45) Hydralazine Tablet (Apresoline Tablet) (09/08/20 17:45) Medications Given in ED Current Medications Medications Dose Ordered Sig/Arlet Route Start Time Stop Time Status Last Admin Dose Admin Diphenhydramine HCl 25 mg ONCE ONCE IVP 09/08/20 16:00 09/08/20 16:01 DC 09/08/20 16:20 25 MG Hydralazine HCl 10 mg ONCE ONCE IV 09/08/20 16:45 09/08/20 16:46 DC 09/08/20 17:01 10 MG Lactated Ringer's 1,000 ml @ 0 mls/hr Q0M ONCE IV 09/08/20 15:51 09/08/20 15:54 DC 09/08/20 16:16 1,000 MLS/HR Metoclopramide HCl 10 mg ONCE ONCE IVP 09/08/20 16:00 09/08/20 16:01 DC 09/08/20 16:23 10 MG Pantoprazole 40 mg ONCE ONCE IV 09/08/20 16:00 09/08/20 16:01 DC 09/08/20 16:16 40 MG Vital Signs/I&O 09/08/20 15:46 Temp 35.9 Pulse 91 Resp 20 B/P (MAP) 210/115 (146) Pulse Ox 98 O2 Delivery Room Air Progress Progress Note #1: Time: 15:58 Progress Note Nonacute abdominal exam. Her tachycardia went away as soon as the provider left the room. Differential includes dehydration related to gastroenteritis, gastroparesis, obstipation, constipation, much less likely bowel obstruction or ileus since she has good bowel sounds. Pancreatitis, GERD, UTI or also possibilities. We will obtain some labs give her a liter of fluids and 10 of Reglan. We'll give her a little Benadryl as well. Progress Note #2: Time: 16:39 Progress Note Patient remarks that she did not take her blood pressure medicine this morning because of nausea. We will Give her 10 mg IV hydralazine. Her symptoms are already incredibly improved. She is not in DKA. If 10 mg insufficient and she still having nausea we will give another 10 mg IV. If she can tolerate by mouth's we could just give her oral hydralazine which is her baseline blood pressure medicine. Progress Note #3: Time: 17:26 Progress Note With a dose of hydralazine the patient's blood pressure did not significantly drops were going to give her a oral dose if her nausea is gone. Departure Impression Primary Impression: Gastroparesis due to DM Additional Impression: Asymptomatic hypertensive urgency Disposition: 01 HOME, SELF-CARE Condition: Improved Departure-Patient Inst. Decision time for Depature: 17:30 Referrals: ALVA BENTLEY MD (PCP/Family) Primary Care Physician Patient Instructions: Gastroparesis (Delayed Gastric Emptying) (DC), Medicines for High Blood Pressure Add. Discharge Instructions: Resume taking her medications as prescribed. If you have nausea use the ondansetron as prescribed. If this does not work then you can use one tablet of Reglan every 6 hours. You may combine this with the Benadryl if you have a side effect of restlessness. Follow-up with your primary care provider in the next week or 2 to discuss whether this medication may be useful for you. Scripts Metoclopramide HCl (Reglan) 10 Mg Tablet 10 MG PO Q6H PRN for NAUSEA/VOMITING-2ND LINE, #10 TAB 0 Refills Prov: RAJIV FLORIAN 09/08/20 RAJIV FLORIAN Sep 08, 2020 15:59
[2020-09-08] MEDS ORDERED: diphenhydrAMINE 50 MG/ML INJ (BENADRYL) IVP ONE (16:00)
[2020-09-08] MEDS ORDERED: PANTOPRAZOLE 40 MG (PROTONIX) VIAL IV ONE (16:00)
[2020-09-08] MEDS ORDERED: METOCLOPRAMIDE INJ 10 MG/2 ML (REGLAN) IVP ONE (16:00)
[2020-09-08 16:12] LABS: BASOPHILS % (AUTO) 0 % (0-10); EOSINOPHILS % (AUTO) 0 % (0-10); HEMATOCRIT 33 % (35-52); HEMOGLOBIN 10.7 g/dL (11.5-16.0); LYMPHOCYTES # (AUTO) 2.3 10^3/uL (1.0-4.0); LYMPHOCYTES % (AUTO) 24 % (12-44); MEAN CORPUSCULAR HEMOGLOBIN 29 pg (25-34); MEAN CORPUSCULAR HGB CONC 33 g/dL (32-36); MEAN CORPUSCULAR VOLUME 90 fL (80-99); MEAN PLATELET VOLUME 11.6 fL (9.0-12.2); MONOCYTES # (AUTO) 0.5 10^3/uL (0.0-1.0); MONOCYTES % (AUTO) 5 % (0-12); NEUTROPHILS # (AUTO) 6.5 10^3/uL (1.8-7.8); NEUTROPHILS % (AUTO) 70 % (42-75); PLATELET COUNT 216 10^3/uL (130-400); WHITE BLOOD COUNT 9.3 10^3/uL (4.3-11.0)
[2020-09-08 16:24] LABS: POTASSIUM 5.1 MMOL/L (3.6-5.0)
[2020-09-08 16:25] LABS: CALCIUM 9.1 MG/DL (8.5-10.1)
[2020-09-08 16:27] LABS: TOTAL PROTEIN 7.9 GM/DL (6.4-8.2)
[2020-09-08 16:28] LABS: BILIRUBIN,TOTAL 0.4 MG/DL (0.1-1.0)
[2020-09-08 16:30] LABS: CREATININE SERUM 2.08 MG/DL (0.60-1.30)
[2020-09-08] MEDS ORDERED: hydrALAZINE (APESOLINE) 20 MG/ML VIAL IV ONE (16:45)
[2020-09-08 17:00] LABS: BILIRUBIN,URINE NEGATIVE (NEGATIVE); CLARITY,URINE CLEAR; COLOR,URINE YELLOW; GLUCOSE, URINE (UA) NEGATIVE (NEGATIVE); KETONES,URINE NEGATIVE (NEGATIVE); LEUKOCYTE ESTERASE ,URINE NEGATIVE (NEGATIVE); NITRITE,URINE NEGATIVE (NEGATIVE); PROTEIN,URINE 3+ (NEGATIVE)
[2020-09-08 17:09] LABS: BACTERIA,URINE FEW /HPF; HYALINE CASTS, URINE 0-2 /LPF; RBC,URINE RARE /HPF; WBC,URINE 0-2 /HPF
[2020-09-08] MEDS ORDERED: METO-310 PO ×2 (17:35→17:40)
[2020-09-08] MEDS ORDERED: hydrALAZINE (APRESOLINE) 25 MG TAB PO ONE (17:45)
[2020-09-08 17:48] VITALS: BP 208/106
== END 2020-09-08 17:48 | disposition home or self-care (01) ==
LOC: EDUNIT# 15:44 → ER 15:45
DX: E11.43 Type 2 diabetes mellitus with diabetic autonomic (poly)neuropathy (principal); K31.84 Gastroparesis; I16.0 Hypertensive urgency; K21.9 Gastro-esophageal reflux disease without esophagitis; Z82.49 Family history of ischemic heart disease and other diseases of the circulatory system; Z83.3 Family history of diabetes mellitus; Z88.1 Allergy status to other antibiotic agents; Z88.5 Allergy status to narcotic agent; Z88.8 Allergy status to other drugs, medicaments and biological substances; Z79.4 Long term (current) use of insulin
CPT/HCPCS: 36415; 80053; 81000; 83690; 85025; 86141

== ENCOUNTER 2020-09-16 16:34 | Emergency (ER) | payer MEDICAID ==
[~2020-09-16] VITALS: Ht 165 cm; Wt 99.7 kg
[2020-09-16] MEDS ORDERED: MUPIROCIN 2% OINT 22 GM (BACTROBAN) TUBE ONE (17:11)
--- NOTE | 2020-09-16 17:14 | ED Integumentary General ---
General Chief Complaint: Skin/Wound Problems Stated Complaint: ITCHING IN FACE,BACK,EARS Nursing Triage Note: PT PRESENTS TO ED FROM HOME WITH COMPLAINTS OF FACE/NOSE/HEAD/ AND EAR ITCHING. Source: patient Exam Limitations: no limitations History of Present Illness Date Seen by Provider: Sep 16, 2020 Time Seen by Provider: 17:12 Initial Comments To ER with reports of nasal and ear itching bilaterally for 3 months. She has not yet sought care for this. She is concerned she may have MRSA in her nares. Timing/Duration: constant Severity: mild Associated Symptoms: denies symptoms Allergies and Home Medications Allergies Coded Allergies: metronidazole (Unverified Allergy, Mild, RASH, 10/30/19) MACULAR RASH amlodipine (Verified Allergy, Unknown, 10/25/19) clarithromycin (Verified Allergy, Unknown, 10/21/19) hydrocodone (Verified Allergy, Unknown, 10/21/19) Home Medications Acetaminophen 500 Mg Tablet, 500-1,000 MG PO Q6H PRN for PAIN-MILD, (Reported) Albuterol Sulfate 1 Puff Puff, 2 PUFF IH Q6H PRN for SHORTNESS OF BREATH, (Reported) Atorvastatin Calcium 20 Mg Tablet, 20 MG PO HS, (Reported) Doxazosin Mesylate 4 Mg Tablet, 4 MG PO HS, (Reported) Fluoxetine HCl 20 Mg Capsule, 20 MG PO HS, (Reported) Gabapentin 600 Mg Tablet, 600 MG PO TID Prescribed by: KRISTINE GUZMAN on 11/01/19 1222 Guaifenesin 600 Mg Tab.er.12h, 600 MG PO BID Prescribed by: KRISTINE GUZMAN on 11/01/19 1222 Hydralazine HCl 25 Mg Tablet, 25 MG PO TID, (Reported) Hydroxyzine HCl 25 Mg Tablet, 25 MG PO Q4H PRN for ITCHING Prescribed by: AARON RAMIREZ on 09/16/20 1759 Insulin Detemir 100 Unit/1 Ml Insuln.pen, 30 UNIT SQ BID PRN for WHEN REMEMBERS, (Reported) LAST FILLED 11-23-18 - ADMITS SHE DOES NOT USE REGULARLY Insulin Lispro 100 Unit/1 Ml Insuln.pen, 30 UNIT SQ TIDAC, (Reported) Lactulose 10 Gm/15 Ml Solution, 15 ML PO TID PRN for CONSTIPATION-3RD LINE, (Reported) Metoclopramide HCl 10 Mg Tablet, 10 MG PO Q6H PRN for NAUSEA/VOMITING-2ND LINE Prescribed by: RAJIV FLORIAN on 09/08/20 1740 Metoprolol Succinate 100 Mg Tab.er.24h, 100 MG PO DAILY Prescribed by: DANNY KHAN on 02/18/20 1152 Ondansetron HCl 8 Mg Tablet, 8 MG PO Q6H PRN for NAUSEA/VOMITING-1ST LINE Prescribed by: KRISTINE GUZMAN on 11/01/19 1222 Patient Home Medication List Home Medication List Reviewed: Yes Review of Systems Review of Systems Constitutional: see HPI EENTM: see HPI, other (Itching just inside her nostrils and in both ears.) Respiratory: no symptoms reported Cardiovascular: no symptoms reported Musculoskeletal: no symptoms reported Skin: no symptoms reported Psychiatric/Neurological: No Symptoms Reported Endocrine: No Symptoms Reported Hematologic/Lymphatic: No Symptoms Reported Past Nibqdyw-Aetizy-Vhhbuj Hx Patient Social History Alcohol Use: Denies Use Recreational Drug Use: No Smoking Status: Never a Smoker 2nd Hand Smoke Exposure: No Recent Foreign Travel: No Contact w/Someone Who Travel: No Recent Infectious Disease Expo: No Recent Hopitalizations: No Physical Abuse: No Sexual Abuse: No Mistreated: No Fear: No Immunizations Up To Date Tetanus Booster (TDap): Unknown Seasonal Allergies Seasonal Allergies: Yes Past Medical History Surgeries: Yes Abdominal, Section, Eye Surgery, Orthopedic, Tubal Ligation Respiratory: No Cardiac: Yes Hypertension Neurological: Yes (PERIPHERAL NEUROPATHY) 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 Genitourinary: No Gastrointestinal: Yes Gastroesophageal Reflux Musculoskeletal: No Endocrine: Yes Diabetes, Insulin dep HEENT: Yes (RETINOPATHY) Macular Degeneration Cancer: No Psychosocial: Yes Anxiety Integumentary: Yes (L foot wound) Recent Skin Changes Blood Disorders: No Family Medical History Asthma G8 BROTHER G8 BROTHER Cardiovascular disease 19 FATHER G8 BROTHER Diabetes mellitus 19 MOTHER G8 BROTHER G8 BROTHER Kidney disease G8 BROTHER Myocardial infarction 19 FATHER Respiratory disorder G8 BROTHER G8 BROTHER No Pertinent Family Hx Physical Exam Vital Signs Vital Signs - First Documented 09/16/20 16:58 Temp 36.0 Pulse 72 Resp 20 B/P (MAP) 148/87 (107) Pulse Ox 98 Capillary Refill : Less Than 3 Seconds General Appearance: WD/WN, no apparent distress HEENT: PERRL/EOMI, normal ENT inspection, TMs normal Neck: non-tender, full range of motion Respiratory: no respiratory distress, no accessory muscle use Gastrointestinal: normal bowel sounds, non tender Extremities: normal range of motion, non-tender Neurologic/Psychiatric: alert, normal mood/affect, oriented x 3 Skin: normal color, warm/dry Skin Problem Location: other (Ascites nostril is some mild erythema. There is no cellulitis of either nasal ala. Oropharynx is normal. There is no rash on the skin no jaundice or scleral icterus.) Progress/Results/Core Measures Results/Orders Lab Results Laboratory Tests Test 09/16/20 17:25 Range/Units White Blood Count 11.8 H 4.3-11.0 10^3/uL Red Blood Count 3.42 L 3.80-5.11 10^6/uL Hemoglobin 10.1 L 11.5-16.0 g/dL Hematocrit 31 L 35-52 % Mean Corpuscular Volume 92 80-99 fL Mean Corpuscular Hemoglobin 30 25-34 pg Mean Corpuscular Hemoglobin Concent 32 32-36 g/dL Red Cell Distribution Width 11.8 10.0-14.5 % Platelet Count 257 130-400 10^3/uL Mean Platelet Volume 11.6 9.0-12.2 fL Immature Granulocyte % (Auto) 0 % Neutrophils (%) (Auto) 61 42-75 % Lymphocytes (%) (Auto) 32 12-44 % Monocytes (%) (Auto) 6 0-12 % Eosinophils (%) (Auto) 1 0-10 % Basophils (%) (Auto) 0 0-10 % Neutrophils # (Auto) 7.2 1.8-7.8 10^3/uL Lymphocytes # (Auto) 3.8 1.0-4.0 10^3/uL Monocytes # (Auto) 0.7 0.0-1.0 10^3/uL Eosinophils # (Auto) 0.1 0.0-0.3 10^3/uL Basophils # (Auto) 0.0 0.0-0.1 10^3/uL Immature Granulocyte # (Auto) 0.0 0.0-0.1 10^3/uL Sodium Level 137 135-145 MMOL/L Potassium Level 4.8 3.6-5.0 MMOL/L Chloride Level 101 98-107 MMOL/L Carbon Dioxide Level 24 21-32 MMOL/L Anion Gap 12 5-14 MMOL/L Blood Urea Nitrogen 54 H 7-18 MG/DL Creatinine 2.37 H 0.60-1.30 MG/DL Estimat Glomerular Filtration Rate 22 BUN/Creatinine Ratio 23 Glucose Level 122 H 70-105 MG/DL Calcium Level 8.7 8.5-10.1 MG/DL My Orders Orders - AARON RAMIREZ APRN Mupirocin Ointment (Bactroban Ointment (09/16/20 21:00) Hydroxyzine Cap/Tab (Vistaril) (09/16/20 17:15) Cbc With Automated Diff (09/16/20 17:14) Basic Metabolic Panel (09/16/20 17:14) Mupirocin Ointment (Bactroban Ointment (09/16/20 17:11) Medications Given in ED Current Medications Medications Dose Ordered Sig/Arlet Route Start Time Stop Time Status Last Admin Dose Admin Hydroxyzine Pamoate 25 mg ONCE ONCE PO 09/16/20 17:15 09/16/20 17:16 DC 09/16/20 17:16 25 MG Vital Signs/I&O 09/16/20 16:58 Temp 36.0 Pulse 72 Resp 20 B/P (MAP) 148/87 (107) Pulse Ox 98 Blood Pressure Mean: 107 Departure Impression Primary Impression: Skin pruritus Additional Impression: Chronic kidney disease (CKD) Disposition: 01 HOME, SELF-CARE Condition: Stable Departure-Patient Inst. Decision time for Depature: 17:57 Referrals: ALVA BENTLEY MD (PCP/Family) Primary Care Physician Patient Instructions: Itchy Skin Add. Discharge Instructions: 1. It is very important to follow-up with [facility] on Friday. You will need referral to kidney specialist. Medication as directed. Return to ER for any concerns. All discharge instructions reviewed with patient and/or family. Voiced understanding. Scripts Hydroxyzine HCl (Hydroxyzine HCl) 25 Mg Tablet 25 MG PO Q4H PRN for ITCHING, #14 TAB Prov: AARON RAMIREZ APRN 09/16/20 AARON RAMIREZ APRN Sep 16, 2020 17:14
[2020-09-16] MEDS ORDERED: hydrOXYzine (VISTARIL/ATARAX) 25 MG capsule/tablet PO ONE (17:15)
[2020-09-16 17:36] LABS: BASOPHILS % (AUTO) 0 % (0-10); EOSINOPHILS # (AUTO) 0.1 10^3/uL (0.0-0.3); EOSINOPHILS % (AUTO) 1 % (0-10); HEMATOCRIT 31 % (35-52); HEMOGLOBIN 10.1 g/dL (11.5-16.0); LYMPHOCYTES # (AUTO) 3.8 10^3/uL (1.0-4.0); LYMPHOCYTES % (AUTO) 32 % (12-44); MEAN CORPUSCULAR HEMOGLOBIN 30 pg (25-34); MEAN CORPUSCULAR HGB CONC 32 g/dL (32-36); MEAN CORPUSCULAR VOLUME 92 fL (80-99); MEAN PLATELET VOLUME 11.6 fL (9.0-12.2); MONOCYTES # (AUTO) 0.7 10^3/uL (0.0-1.0); MONOCYTES % (AUTO) 6 % (0-12); NEUTROPHILS # (AUTO) 7.2 10^3/uL (1.8-7.8); NEUTROPHILS % (AUTO) 61 % (42-75); PLATELET COUNT 257 10^3/uL (130-400); WHITE BLOOD COUNT 11.8 10^3/uL (4.3-11.0)
[2020-09-16 17:49] LABS: POTASSIUM 4.8 MMOL/L (3.6-5.0)
[2020-09-16 17:50] LABS: CALCIUM 8.7 MG/DL (8.5-10.1)
[2020-09-16 17:55] LABS: CREATININE SERUM 2.37 MG/DL (0.60-1.30)
[2020-09-16] MEDS ORDERED: HYDR-700 PO (17:59)
[2020-09-16] MEDS ORDERED: LACTATED RINGERS 1,000 ML IV ONE (18:03)
[2020-09-16] MEDS ORDERED: LACTATED RINGERS 1,000 ML IV SCH (18:15)
[2020-09-16 19:38] VITALS: BP 181/100
[2020-09-16] MEDS ORDERED: MUPIROCIN 2% OINT 22 GM (BACTROBAN) TUBE NSEACH SCH (21:00)
== END 2020-09-16 19:38 | disposition home or self-care (01) ==
LOC: EDUNIT# 16:34 → ER 16:35
DX: L29.9 Pruritus, unspecified (principal); I12.9 Hypertensive chronic kidney disease with stage 1 through stage 4 chronic kidney disease, or unspecified chronic kidney disease; E11.22 Type 2 diabetes mellitus with diabetic chronic kidney disease; N18.9 Chronic kidney disease, unspecified; F41.9 Anxiety disorder, unspecified; Z88.1 Allergy status to other antibiotic agents; Z88.5 Allergy status to narcotic agent; Z88.8 Allergy status to other drugs, medicaments and biological substances; Z83.3 Family history of diabetes mellitus; Z82.49 Family history of ischemic heart disease and other diseases of the circulatory system; Z79.4 Long term (current) use of insulin
CPT/HCPCS: 36415; 80048; 85025

== ENCOUNTER 2020-12-28 14:32 | Emergency (ER) | payer MEDICAID ==
[~2020-12-28] VITALS: Ht 165.1 cm; Wt 100.0 kg
[~2020-12-28 14:32] MED LIST changes: +HYDR-700 PO; -LISI-552 PO; +LISI20TA26 PO
[2020-12-28 15:19] LABS: BASOPHILS % (AUTO) 0 % (0-10); EOSINOPHILS # (AUTO) 0.1 10^3/uL (0.0-0.3); EOSINOPHILS % (AUTO) 1 % (0-10); HEMATOCRIT 34 % (35-52); HEMOGLOBIN 10.9 g/dL (11.5-16.0); LYMPHOCYTES # (AUTO) 2.6 10^3/uL (1.0-4.0); LYMPHOCYTES % (AUTO) 30 % (12-44); MEAN CORPUSCULAR HEMOGLOBIN 29 pg (25-34); MEAN CORPUSCULAR HGB CONC 33 g/dL (32-36); MEAN CORPUSCULAR VOLUME 89 fL (80-99); MEAN PLATELET VOLUME 11.8 fL (9.0-12.2); MONOCYTES # (AUTO) 0.7 10^3/uL (0.0-1.0); MONOCYTES % (AUTO) 8 % (0-12); NEUTROPHILS # (AUTO) 5.3 10^3/uL (1.8-7.8); NEUTROPHILS % (AUTO) 61 % (42-75); PLATELET COUNT 183 10^3/uL (130-400); WHITE BLOOD COUNT 8.8 10^3/uL (4.3-11.0)
[2020-12-28] MEDS ORDERED: KETOROLAC 30 MG/ML VIAL IVP STA (15:26)
[2020-12-28] MEDS ORDERED: diphenhydrAMINE 50 MG/ML INJ (BENADRYL) IVP ONE (15:30)
[2020-12-28] MEDS ORDERED: PROCHLORPERAZINE 10 MG/2ML INJ (COMPAZINE) IV ONE (15:30)
[2020-12-28] MEDS ORDERED: NS IV 1000 ML 1,000 ML IV SCH (15:30)
[2020-12-28 15:31] LABS: BILIRUBIN,URINE NEGATIVE (NEGATIVE); COLOR,URINE YELLOW; GLUCOSE, URINE (UA) TRACE (NEGATIVE); KETONES,URINE NEGATIVE (NEGATIVE); LEUKOCYTE ESTERASE ,URINE 1+ (NEGATIVE); NITRITE,URINE POSITIVE (NEGATIVE); PROTEIN,URINE 3+ (NEGATIVE)
--- NOTE | 2020-12-28 15:33 | ED GI ---
General Chief Complaint: Abdominal/GI Problems Stated Complaint: ABD PAIN/HEADACHE Nursing Triage Note: AMB TO ROOM C/O HEADACHE FOR 1 WEEK AND NAUSEA TOOK 3 TYLENOL 500MG LAST NIGHT FOR HEADACHE Sepsis Screen: No Definite Risk History of Present Illness Date Seen by Provider: Dec 28, 2020 Time Seen by Provider: 15:00 Initial Comments 50-year-old female presents for nausea and vomiting associated with a headache. The patient reports a chronic history of headaches. She took Tylenol last evening with no improvement in her symptoms. She has not vomited in over 48 hours. She is unsure of her last bowel movement, she does report passing flatus. History of gastroparesis and hypertension, took B/P medicine today. Timing/Duration: 1 Week Severity/Quality: Moderate Location: Generalized Abdomen Radiation: No Radiation Modifying Factors: Improves With Resting Associated Symptoms: No Back Pain, No Chest Pain, No Fever/Chills, No Fatigue; Headache; No Heartburn; Nausea/Vomiting; No Rash, No Shortness of Air, No Swelling/Mass in Abdomen, No Syncope, No Weakness Allergies and Home Medications Allergies Coded Allergies: metronidazole (Unverified Allergy, Mild, RASH, 10/30/19) MACULAR RASH amlodipine (Verified Allergy, Unknown, 10/25/19) clarithromycin (Verified Allergy, Unknown, 10/21/19) hydrocodone (Verified Allergy, Unknown, 10/21/19) Home Medications Acetaminophen 500 Mg Tablet, 500-1,000 MG PO Q6H PRN for PAIN-MILD, (Reported) Albuterol Sulfate 1 Puff Puff, 2 PUFF IH Q6H PRN for SHORTNESS OF BREATH, (Reported) Atorvastatin Calcium 20 Mg Tablet, 20 MG PO HS, (Reported) Ciprofloxacin HCl 500 Mg Tablet, 500 MG PO BID Prescribed by: FRANNY KEEN on 12/28/20 1627 Doxazosin Mesylate 4 Mg Tablet, 4 MG PO HS, (Reported) Fluoxetine HCl 20 Mg Capsule, 20 MG PO HS, (Reported) Gabapentin 600 Mg Tablet, 600 MG PO TID Prescribed by: KRISTINE GUZMAN on 11/01/19 1222 Guaifenesin 600 Mg Tab.er.12h, 600 MG PO BID Prescribed by: KRISTINE GUZMAN on 11/01/19 1222 Hydralazine HCl 25 Mg Tablet, 25 MG PO TID, (Reported) Hydrochlorothiazide 50 Mg Tablet, 50 MG PO DAILY Prescribed by: FRANNY KEEN on 12/28/20 1718 Hydroxyzine HCl 25 Mg Tablet, 25 MG PO Q4H PRN for ITCHING Prescribed by: AARON RAMIREZ on 09/16/20 1759 Insulin Detemir 100 Unit/1 Ml Insuln.pen, 30 UNIT SQ BID PRN for WHEN REMEMBERS, (Reported) LAST FILLED 11-23-18 - ADMITS SHE DOES NOT USE REGULARLY Insulin Lispro 100 Unit/1 Ml Insuln.pen, 30 UNIT SQ TIDAC, (Reported) Lactulose 10 Gm/15 Ml Solution, 15 ML PO TID PRN for CONSTIPATION-3RD LINE, (Reported) Metoclopramide HCl 10 Mg Tablet, 10 MG PO Q6H PRN for NAUSEA/VOMITING-2ND LINE Prescribed by: RAJIV FLOIRAN on 09/08/20 1740 Metoprolol Succinate 100 Mg Tab.er.24h, 100 MG PO DAILY Prescribed by: DANNY KHAN on 02/18/20 1152 Ondansetron HCl 8 Mg Tablet, 8 MG PO Q6H PRN for NAUSEA/VOMITING-1ST LINE Prescribed by: KRISTINE GUZMAN on 11/01/19 1222 Patient Home Medication List Home Medication List Reviewed: Yes Review of Systems Review of Systems Constitutional: no symptoms reported, see HPI Respiratory: No Symptoms Reported, See HPI Cardiovascular: No Symptoms Reported, See HPI; Denies Chest Pain Gastrointestinal: See HPI; Denies Abdominal Pain; Constipated, Nausea (Chronic), Poor Appetite, Poor Fluid Intake, Vomiting (Not today, but 2 days ago the patient had vomiting for 24 hours.) Psychiatric/Neurological: See HPI, Headache All Other Systems Reviewed Negative Unless Noted: Yes Past Paaqybe-Fdzmbl-Makhbf Hx Past Med/Social Hx: Reviewed Nursing Past Med/Soc Hx Patient Social History Alcohol Use: Occasionally Uses 2nd Hand Smoke Exposure: No Recent Infectious Disease Expo: No Recent Hopitalizations: No Immunizations Up To Date Tetanus Booster (TDap): Unknown Seasonal Allergies Seasonal Allergies: Yes Past Medical History Surgeries: Yes Abdominal, Section, Eye Surgery, Orthopedic, Tubal Ligation Respiratory: No Cardiac: Yes Hypertension Neurological: Yes (PERIPHERAL NEUROPATHY) 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 Genitourinary: No Gastrointestinal: Yes Gastroesophageal Reflux Musculoskeletal: No Endocrine: Yes Diabetes, Insulin dep HEENT: Yes (RETINOPATHY) Macular Degeneration Cancer: No Psychosocial: Yes Anxiety Integumentary: Yes (L foot wound) Recent Skin Changes Blood Disorders: No Family Medical History Asthma G8 BROTHER G8 BROTHER Cardiovascular disease 19 FATHER G8 BROTHER Diabetes mellitus 19 MOTHER G8 BROTHER G8 BROTHER Kidney disease G8 BROTHER Myocardial infarction 19 FATHER Respiratory disorder G8 BROTHER G8 BROTHER No Pertinent Family Hx Physical Exam Vital Signs Vital Signs - First Documented 12/28/20 14:58 Temp 36.0 Pulse 72 Resp 18 B/P (MAP) 209/106 (140) Pulse Ox 99 O2 Delivery Room Air Capillary Refill : Less Than 3 Seconds Height/Weight/BMI Height: 5'5.00" Weight: 221lbs. 4.8oz. 100.099275we; 36.00 BMI Method:Stated General Appearance: WD/WN, obese HEENT: PERRL/EOMI, normal ENT inspection, TMs normal Neck: non-tender, full range of motion, supple Respiratory: chest non-tender, lungs clear, normal breath sounds Cardiovascular: normal peripheral pulses, regular rate, rhythm Gastrointestinal: normal bowel sounds, non tender, soft, distended; No guarding, No rebound, No tenderness Back: normal inspection, no CVA tenderness, no vertebral tenderness Neurologic/Psychiatric: no motor/sensory deficits, alert, normal mood/affect, oriented x 3 Skin: normal color, warm/dry Progress/Results/Core Measures Results/Orders Lab Results Laboratory Tests Test 12/28/20 15:10 12/28/20 15:18 Range/Units White Blood Count 8.8 4.3-11.0 10^3/uL Red Blood Count 3.78 L 3.80-5.11 10^6/uL Hemoglobin 10.9 L 11.5-16.0 g/dL Hematocrit 34 L 35-52 % Mean Corpuscular Volume 89 80-99 fL Mean Corpuscular Hemoglobin 29 25-34 pg Mean Corpuscular Hemoglobin Concent 33 32-36 g/dL Red Cell Distribution Width 12.0 10.0-14.5 % Platelet Count 183 130-400 10^3/uL Mean Platelet Volume 11.8 9.0-12.2 fL Immature Granulocyte % (Auto) 0 % Neutrophils (%) (Auto) 61 42-75 % Lymphocytes (%) (Auto) 30 12-44 % Monocytes (%) (Auto) 8 0-12 % Eosinophils (%) (Auto) 1 0-10 % Basophils (%) (Auto) 0 0-10 % Neutrophils # (Auto) 5.3 1.8-7.8 10^3/uL Lymphocytes # (Auto) 2.6 1.0-4.0 10^3/uL Monocytes # (Auto) 0.7 0.0-1.0 10^3/uL Eosinophils # (Auto) 0.1 0.0-0.3 10^3/uL Basophils # (Auto) 0.0 0.0-0.1 10^3/uL Immature Granulocyte # (Auto) 0.0 0.0-0.1 10^3/uL Sodium Level 137 135-145 MMOL/L Potassium Level 4.9 3.6-5.0 MMOL/L Chloride Level 104 98-107 MMOL/L Carbon Dioxide Level 23 21-32 MMOL/L Anion Gap 10 5-14 MMOL/L Blood Urea Nitrogen 56 H 7-18 MG/DL Creatinine 2.14 H 0.60-1.30 MG/DL Estimat Glomerular Filtration Rate 24 BUN/Creatinine Ratio 26 Glucose Level 187 H 70-105 MG/DL Calcium Level 9.1 8.5-10.1 MG/DL Corrected Calcium 9.3 8.5-10.1 MG/DL Total Bilirubin 0.3 0.1-1.0 MG/DL Aspartate Amino Transf (AST/SGOT) 21 5-34 U/L Alanine Aminotransferase (ALT/SGPT) 32 0-55 U/L Alkaline Phosphatase 27 L 40-136 U/L Total Protein 7.4 6.4-8.2 GM/DL Albumin 3.8 3.2-4.5 GM/DL Amylase Level 52 25-125 U/L Lipase 19 8-78 U/L Urine Color YELLOW Urine Clarity SL CLOUDY Urine pH 6.0 5-9 Urine Specific [place] >=1.030 1.016-1.022 Urine Protein 3+ H NEGATIVE Urine Glucose (UA) TRACE H NEGATIVE Urine Ketones NEGATIVE NEGATIVE Urine Nitrite POSITIVE H NEGATIVE Urine Bilirubin NEGATIVE NEGATIVE Urine Urobilinogen 0.2 < = 1.0 MG/DL Urine Leukocyte Esterase 1+ H NEGATIVE Urine RBC (Auto) 2+ H NEGATIVE Urine RBC RARE /HPF Urine WBC >100 H /HPF Urine Squamous Epithelial Cells 0-2 /HPF Urine Crystals NONE /LPF Urine Bacteria TRACE /HPF Urine Casts NONE /LPF Urine Mucus NEGATIVE /LPF Urine Culture Indicated YES My Orders Orders - FRANNY KEEN Comprehensive Metabolic Panel (12/28/20 15:04) Lipase (12/28/20 15:04) Amylase (12/28/20 15:04) Ua Culture If Indicated (12/28/20 15:04) Cbc With Automated Diff (12/28/20 15:04) Prochlorperazine Injection (Compazine In (12/28/20 15:30) Ketorolac Injection (Toradol Injection) (12/28/20 15:26) Ed Iv/Invasive Line Start (12/28/20 15:26) Ns Iv 1000 Ml (Sodium Chloride 0.9%) (12/28/20 15:30) Diphenhydramine Injection (Benadryl Inje (12/28/20 15:30) Urine Culture (12/28/20 15:18) Hydralazine Injection (Apresoline Inject (12/28/20 16:30) Hydralazine Injection (Apresoline Inject (12/28/20 17:00) Medications Given in ED Current Medications Medications Dose Ordered Sig/Arlet Route Start Time Stop Time Status Last Admin Dose Admin Diphenhydramine HCl 25 mg ONCE ONCE IVP 12/28/20 15:30 12/28/20 15:31 DC 12/28/20 15:40 25 MG Hydralazine HCl 5 mg ONCE ONCE IV 12/28/20 16:30 12/28/20 16:31 DC 12/28/20 16:36 5 MG Hydralazine HCl 10 mg ONCE ONCE IV 12/28/20 17:00 12/28/20 17:01 DC 12/28/20 17:03 10 MG Prochlorperazine Edisylate 10 mg ONCE ONCE IV 12/28/20 15:30 12/28/20 15:31 DC 12/28/20 15:38 10 MG Vital Signs/I&O 12/28/20 12/28/20 14:58 17:31 Temp 36.0 36.9 Pulse 72 74 Resp 18 18 B/P (MAP) 209/106 (140) 201/113 Pulse Ox 99 92 O2 Delivery Room Air Room Air Blood Pressure Mean: 140 Progress Progress Note : Time: 15:00 Progress Note Patient seen and evaluated, will give NS 1 L, labs, Benadryl 25 mg, Toradol 30 mg and Compazine 10 mg IV. 1545 Patient reports improvement in her Headache and nausea. Taking ice chips. Continued Hypertension, will give Hydralazine 5 mg IV. 1615 Min improvement in b/p, will give Hydralazine 10 mg IV. 1700 B/P improving, patient reports difficulty keeping B/P controlled, recommended follow up with PCP. Departure Impression Primary Impression: Headache Qualified Codes: R51.9 - Headache, unspecified; G89.29 - Other chronic pain Additional Impressions: Nausea and vomiting Qualified Codes: R11.2 - Nausea with vomiting, unspecified UTI (urinary tract infection) Qualified Codes: N30.01 - Acute cystitis with hematuria Disposition: HOME, SELF-CARE Condition: Improved Departure-Patient Inst. Decision time for Depature: 17:15 Referrals: PREET MARES APRN (PCP/Family) Primary Care Physician Patient Instructions: Headache, Adult (DC), Malignant Hypertension (DC), Urinary Tract Infection, Adult (DC) Add. Discharge Instructions: Increase water intake, 16 ounces every 2 hours while awake. Take antibiotics as prescribed. Use Excedrin Migraine, 2 tablets at onset of headache. Follow-up with your primary care provider next week, to adjust your B/P medicine. Return to the emergency department for new, urgent healthcare needs. All discharge instructions reviewed with patient and/or family. Voiced understa nding. Scripts Hydrochlorothiazide (Hydrochlorothiazide) 50 Mg Tablet 50 MG PO DAILY, #30 TAB 0 Refills Prov: FRANNY KEEN 12/28/20 Ciprofloxacin HCl (Ciprofloxacin HCl) 500 Mg Tablet 500 MG PO BID, #14 TAB Prov: FRANNY KEEN 12/28/20 FRANNY KEEN Dec 28, 2020 15:33
[2020-12-28 15:40] LABS: CLARITY,URINE SL CLOUDY
[2020-12-28 15:41] LABS: ALBUMIN 3.8 GM/DL (3.2-4.5); BILIRUBIN,TOTAL 0.3 MG/DL (0.1-1.0); CALCIUM 9.1 MG/DL (8.5-10.1); CREATININE SERUM 2.14 MG/DL (0.60-1.30); POTASSIUM 4.9 MMOL/L (3.6-5.0); TOTAL PROTEIN 7.4 GM/DL (6.4-8.2)
[2020-12-28 15:41] LABS: BACTERIA,URINE TRACE /HPF; RBC,URINE RARE /HPF; SQUAMOUS EPITHELIAL CELL,UR 0-2 /HPF; WBC,URINE >100 /HPF
[2020-12-28] MEDS ORDERED: CIPR500T5 PO (16:27)
[2020-12-28] MEDS ORDERED: hydrALAZINE (APESOLINE) 20 MG/ML VIAL IV ONE ×2 (16:30→17:00)
[2020-12-28] MEDS ORDERED: HYDR50TA6 PO (17:18)
[2020-12-28 17:31] VITALS: BP 201/113
== END 2020-12-28 17:31 | disposition home or self-care (01) ==
LOC: EDUNIT# 14:32 → ER 14:35
DX: R51.9 Headache, unspecified (principal); R11.2 Nausea with vomiting, unspecified; N39.0 Urinary tract infection, site not specified; I10 Essential (primary) hypertension; E66.9 Obesity, unspecified; F41.9 Anxiety disorder, unspecified; E11.9 Type 2 diabetes mellitus without complications; Z88.5 Allergy status to narcotic agent; Z88.1 Allergy status to other antibiotic agents; Z88.8 Allergy status to other drugs, medicaments and biological substances; Z68.36 Body mass index [BMI] 36.0-36.9, adult; Z82.49 Family history of ischemic heart disease and other diseases of the circulatory system; Z79.4 Long term (current) use of insulin
CPT/HCPCS: 36415; 80053; 81000; 82150; 83690; 85025; 87077; 87088; 87186

== ENCOUNTER 2021-02-12 17:10 | Emergency (ER) | payer MEDICAID ==
[~2021-02-12] VITALS: Ht 165.1 cm; Wt 100.0 kg
[~2021-02-12 17:10] MED LIST changes: +CIPR500T5 PO; +HYDR50TA6 PO
--- NOTE | 2021-02-12 17:15 | ED General ---
General Stated Complaint: AMS History of Present Illness Date Seen by Provider: February 12, 2021 Time Seen by Provider: 17:16 Initial Comments 50-year-old female presents because there is "something is just not right" patient is very vague in her symptoms. Patient reports a recent UTI. Patient reports her blood sugars were high last night but back to normal today. Patient reports that "something is wrong because she cannot pee" and has normal never a problem. Patient denies any fevers or chills. Patient cannot really explain reports not right. No other systemic complaints Allergies and Home Medications Allergies Coded Allergies: metronidazole (Unverified Allergy, Mild, RASH, 10/30/19) MACULAR RASH amlodipine (Verified Allergy, Unknown, 10/25/19) clarithromycin (Verified Allergy, Unknown, 10/21/19) hydrocodone (Verified Allergy, Unknown, 10/21/19) Home Medications Acetaminophen 500 Mg Tablet, 500-1,000 MG PO Q6H PRN for PAIN-MILD, (Reported) Albuterol Sulfate 1 Puff Puff, 2 PUFF IH Q6H PRN for SHORTNESS OF BREATH, (Reported) Atorvastatin Calcium 20 Mg Tablet, 20 MG PO HS, (Reported) Ciprofloxacin HCl 500 Mg Tablet, 500 MG PO BID Prescribed by: FRANNY KEEN on 12/28/20 1627 Doxazosin Mesylate 4 Mg Tablet, 4 MG PO HS, (Reported) Fluoxetine HCl 20 Mg Capsule, 20 MG PO HS, (Reported) Gabapentin 600 Mg Tablet, 600 MG PO TID Prescribed by: KRISTINE GUZMAN on 11/01/19 1222 Guaifenesin 600 Mg Tab.er.12h, 600 MG PO BID Prescribed by: KRISTINE GUZMAN on 11/01/19 1222 Hydralazine HCl 25 Mg Tablet, 25 MG PO TID, (Reported) Hydrochlorothiazide 50 Mg Tablet, 50 MG PO DAILY Prescribed by: FRANNY KEEN on 12/28/20 1718 Hydroxyzine HCl 25 Mg Tablet, 25 MG PO Q4H PRN for ITCHING Prescribed by: AARON RAMIREZ on 09/16/20 1759 Insulin Detemir 100 Unit/1 Ml Insuln.pen, 30 UNIT SQ BID PRN for WHEN REMEMBERS, (Reported) LAST FILLED 11-23-18 - ADMITS SHE DOES NOT USE REGULARLY Insulin Lispro 100 Unit/1 Ml Insuln.pen, 30 UNIT SQ TIDAC, (Reported) Lactulose 10 Gm/15 Ml Solution, 15 ML PO TID PRN for CONSTIPATION-3RD LINE, (Reported) Metoclopramide HCl 10 Mg Tablet, 10 MG PO Q6H PRN for NAUSEA/VOMITING-2ND LINE Prescribed by: RAJIV FLORIAN on 09/08/20 1740 Metoprolol Succinate 100 Mg Tab.er.24h, 100 MG PO DAILY Prescribed by: DANNY KHAN on 02/18/20 1152 Ondansetron HCl 8 Mg Tablet, 8 MG PO Q6H PRN for NAUSEA/VOMITING-1ST LINE Prescribed by: KRISTINE GUZMAN on 11/01/19 1222 Patient Home Medication List Home Medication List Reviewed: Yes Review of Systems Review of Systems Constitutional: see HPI; No chills, No fever; malaise Respiratory: No cough, No short of breath Cardiovascular: No chest pain, No palpitations Gastrointestinal: no symptoms reported Genitourinary: see HPI Musculoskeletal: no symptoms reported Skin: no symptoms reported Psychiatric/Neurological: See HPI Past Itjmppv-Kyztxl-Mzlltw Hx Past Med/Social Hx: Reviewed Nursing Past Med/Soc Hx Patient Social History 2nd Hand Smoke Exposure: No Recent Hopitalizations: No Immunizations Up To Date Tetanus Booster (TDap): Unknown Seasonal Allergies Seasonal Allergies: Yes Past Medical History Surgeries: Yes Abdominal, Section, Eye Surgery, Orthopedic, Tubal Ligation Respiratory: No Cardiac: Yes Hypertension Neurological: Yes (PERIPHERAL NEUROPATHY) Neuropathy 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 Genitourinary: No Gastrointestinal: Yes Gastroesophageal Reflux Musculoskeletal: No Endocrine: Yes Diabetes, Insulin dep HEENT: Yes (RETINOPATHY) Macular Degeneration Cancer: No Psychosocial: Yes Anxiety Integumentary: Yes (L foot wound) Recent Skin Changes Blood Disorders: No Family Medical History Asthma G8 BROTHER G8 BROTHER Cardiovascular disease 19 FATHER G8 BROTHER Diabetes mellitus 19 MOTHER G8 BROTHER G8 BROTHER Kidney disease G8 BROTHER Myocardial infarction 19 FATHER Respiratory disorder G8 BROTHER G8 BROTHER No Pertinent Family Hx Physical Exam Vital Signs Vital Signs - First Documented 02/12/21 17:15 Temp 36.4 Pulse 88 Resp 20 B/P (MAP) 140/75 (96) Pulse Ox 99 O2 Delivery Room Air Capillary Refill : Height, Weight, BMI Height: 5'5.00" Weight: 221lbs. 4.8oz. 100.052152kt; 36.00 BMI Method:Stated General Appearance: No Apparent Distress, WD/WN Respiratory: Lungs Clear, Normal Breath Sounds Cardiovascular: Regular Rate, Rhythm Gastrointestinal: Non Tender, Soft Extremity: Normal Capillary Refill, Normal Range of Motion Neurologic/Psychiatric: Alert, Oriented x3, No Motor/Sensory Deficits, Normal Mood/Affect Skin: Normal Color, Warm/Dry Progress/Results/Core Measures Suspected Sepsis SIRS Temperature: Pulse: Respiratory Rate: Laboratory Tests 02/12/21 17:56: White Blood Count 11.3H Blood Pressure / Mean: Laboratory Tests 02/12/21 17:56: Creatinine 2.83H, Platelet Count 226, Total Bilirubin 0.2 Results/Orders Lab Results Laboratory Tests Test 02/12/21 17:54 02/12/21 17:56 02/12/21 19:10 02/12/21 19:43 Range/Units Glucometer 63 L 103 70-110 MG/DL White Blood Count 11.3 H 4.3-11.0 10^3/uL Red Blood Count 3.61 L 4.35-5.85 10^6/uL Hemoglobin 10.5 L 11.5-16.0 G/DL Hematocrit 31 L 35-52 % Mean Corpuscular Volume 87 80-99 FL Mean Corpuscular Hemoglobin 29 25-34 PG Mean Corpuscular Hemoglobin Concent 34 32-36 G/DL Red Cell Distribution Width 13.1 10.0-14.5 % Platelet Count 226 130-400 10^3/uL Mean Platelet Volume 11.6 H 7.4-10.4 FL Immature Granulocyte % (Auto) 0 % Neutrophils (%) (Auto) 62 42-75 % Lymphocytes (%) (Auto) 30 12-44 % Monocytes (%) (Auto) 7 0-12 % Eosinophils (%) (Auto) 1 0-10 % Basophils (%) (Auto) 0 0-10 % Neutrophils # (Auto) 7.0 1.8-7.8 X 10^3 Lymphocytes # (Auto) 3.4 1.0-4.0 X 10^3 Monocytes # (Auto) 0.8 0.0-1.0 X 10^3 Eosinophils # (Auto) 0.1 0.0-0.3 10^3/uL Basophils # (Auto) 0.0 0.0-0.1 10^3/uL Immature Granulocyte # (Auto) 0.0 0.0-0.1 10^3/uL Sodium Level 138 135-145 MMOL/L Potassium Level 4.3 3.6-5.0 MMOL/L Chloride Level 104 98-107 MMOL/L Carbon Dioxide Level 21 21-32 MMOL/L Anion Gap 13 5-14 MMOL/L Blood Urea Nitrogen 61 H 7-18 MG/DL Creatinine 2.83 H 0.60-1.30 MG/DL Estimat Glomerular Filtration Rate 18 BUN/Creatinine Ratio 22 Glucose Level 64 L 70-105 MG/DL Calcium Level 10.1 8.5-10.1 MG/DL Corrected Calcium 10.2 H 8.5-10.1 MG/DL Total Bilirubin 0.2 0.1-1.0 MG/DL Aspartate Amino Transf (AST/SGOT) 14 5-34 U/L Alanine Aminotransferase (ALT/SGPT) 19 0-55 U/L Alkaline Phosphatase 33 L 40-136 U/L Total Protein 7.3 6.4-8.2 GM/DL Albumin 3.9 3.2-4.5 GM/DL Urine Color YELLOW Urine Clarity SLT CLOUDY Urine pH 6.0 5-9 Urine Specific [place] 1.025 H 1.016-1.022 Urine Protein 3+ H NEGATIVE Urine Glucose (UA) 2+ H NEGATIVE Urine Ketones NEGATIVE NEGATIVE Urine Nitrite NEGATIVE NEGATIVE Urine Bilirubin NEGATIVE NEGATIVE Urine Urobilinogen 0.2 < = 1.0 MG/DL Urine Leukocyte Esterase NEGATIVE NEGATIVE Urine RBC (Auto) 2+ H NEGATIVE Urine RBC 0-2 /HPF Urine WBC 2-5 /HPF Urine Squamous Epithelial Cells RARE /HPF Urine Crystals NONE /LPF Urine Bacteria FEW H /HPF Urine Casts PRESENT /LPF Urine Hyaline Casts 0-2 H /LPF Urine Mucus NEGATIVE /LPF Urine Culture Indicated YES My Orders Orders - TOWNSEND,NASIMA L DO Cbc With Automated Diff (02/12/21 17:21) Comprehensive Metabolic Panel (02/12/21 17:21) Ua Culture If Indicated (02/12/21 17:21) Accucheck Stat ONCE (02/12/21 17:21) Lactated Ringers (Lr 1000 Ml Iv Solution (02/12/21 17:21) Accucheck Stat ONCE (02/12/21 19:00) Urine Culture (02/12/21 19:43) Vital Signs/I&O 02/12/21 17:15 Temp 36.4 Pulse 88 Resp 20 B/P (MAP) 140/75 (96) Pulse Ox 99 O2 Delivery Room Air Capillary Refill : Progress Note : Time: 20:20 Progress Note Patient with no significant acute findings on her work-up. Patient symptoms likely related to her blood sugar being in the 60s when is typically above 200. Patient blood sugar improved following eating. She did report that she had a mesh throughout the day. Patient's urine showed a little bit of bacteria but no nitrate or leukocyte esterase. She was just recently treated for a UTI so will await cultures and can call her if comes back positive or however follow-up with her primary care provider. Patient stable and discharged Departure Impression Primary Impression: Low blood sugar Disposition: HOME, SELF-CARE Condition: Stable Departure-Patient Inst. Referrals: PREET MARES APRN (PCP/Family) Primary Care Physician Patient Instructions: Low Blood Sugar in People With Diabetes, Dealing with Low Blood Sugar from the Drugs You Take Add. Discharge Instructions: Follow-up with your primary care provider in the next day to 2 days for recheck of your symptoms and continuation of care NASIMA TOWNSEND DO February 12, 2021 17:15
[2021-02-12] MEDS ORDERED: LACTATED RINGERS 1,000 ML IV STA (17:21)
[2021-02-12 18:03] LABS: HEMATOCRIT 31 % (35-52); HEMOGLOBIN 10.5 G/DL (11.5-16.0); MEAN CORPUSCULAR HEMOGLOBIN 29 PG (25-34); WHITE BLOOD COUNT 11.3 10^3/uL (4.3-11.0)
[2021-02-12 18:04] LABS: BASOPHILS % (AUTO) 0 % (0-10); EOSINOPHILS # (AUTO) 0.1 10^3/uL (0.0-0.3); EOSINOPHILS % (AUTO) 1 % (0-10); LYMPHOCYTES # (AUTO) 3.4 X 10^3 (1.0-4.0); LYMPHOCYTES % (AUTO) 30 % (12-44); MEAN CORPUSCULAR HGB CONC 34 G/DL (32-36); MEAN CORPUSCULAR VOLUME 87 FL (80-99); MEAN PLATELET VOLUME 11.6 FL (7.4-10.4); MONOCYTES # (AUTO) 0.8 X 10^3 (0.0-1.0); MONOCYTES % (AUTO) 7 % (0-12); NEUTROPHILS % (AUTO) 62 % (42-75); PLATELET COUNT 226 10^3/uL (130-400)
[2021-02-12 18:23] LABS: POTASSIUM 4.3 MMOL/L (3.6-5.0)
[2021-02-12 18:24] LABS: ALBUMIN 3.9 GM/DL (3.2-4.5); BILIRUBIN,TOTAL 0.2 MG/DL (0.1-1.0); CALCIUM 10.1 MG/DL (8.5-10.1); CREATININE SERUM 2.83 MG/DL (0.60-1.30); TOTAL PROTEIN 7.3 GM/DL (6.4-8.2)
[2021-02-12 19:56] LABS: BACTERIA,URINE FEW /HPF; BILIRUBIN,URINE NEGATIVE (NEGATIVE); CLARITY,URINE SLT CLOUDY; COLOR,URINE YELLOW; GLUCOSE, URINE (UA) 2+ (NEGATIVE); KETONES,URINE NEGATIVE (NEGATIVE); LEUKOCYTE ESTERASE ,URINE NEGATIVE (NEGATIVE); NITRITE,URINE NEGATIVE (NEGATIVE); PROTEIN,URINE 3+ (NEGATIVE); RBC,URINE 0-2 /HPF; SQUAMOUS EPITHELIAL CELL,UR RARE /HPF
[2021-02-12 19:57] LABS: HYALINE CASTS, URINE 0-2 /LPF
[2021-02-12 20:42] VITALS: BP 133/71
== END 2021-02-12 20:42 | disposition home or self-care (01) ==
LOC: EDUNIT# 17:10 → ER FS 17:12
DX: E11.649 Type 2 diabetes mellitus with hypoglycemia without coma (principal); I10 Essential (primary) hypertension; F41.9 Anxiety disorder, unspecified; Z88.5 Allergy status to narcotic agent; Z88.1 Allergy status to other antibiotic agents; Z88.8 Allergy status to other drugs, medicaments and biological substances; Z79.899 Other long term (current) drug therapy; Z79.4 Long term (current) use of insulin
CPT/HCPCS: 36415; 80053; 81000; 82947; 85025; 87088

== ENCOUNTER 2021-03-03 23:44 | Emergency (ER) | payer MEDICAID ==
[~2021-03-03] VITALS: Ht 162.5 cm; Wt 108.8 kg
[2021-03-04 01:12] LABS: BASOPHILS % (AUTO) 0 % (0-10); EOSINOPHILS # (AUTO) 0.1 10^3/uL (0.0-0.3); EOSINOPHILS % (AUTO) 1 % (0-10); HEMATOCRIT 26 % (35-52); HEMOGLOBIN 8.3 g/dL (11.5-16.0); LYMPHOCYTES # (AUTO) 2.7 10^3/uL (1.0-4.0); LYMPHOCYTES % (AUTO) 27 % (12-44); MEAN CORPUSCULAR HEMOGLOBIN 29 pg (25-34); MEAN CORPUSCULAR HGB CONC 32 g/dL (32-36); MEAN CORPUSCULAR VOLUME 91 fL (80-99); MONOCYTES # (AUTO) 0.9 10^3/uL (0.0-1.0); MONOCYTES % (AUTO) 9 % (0-12); NEUTROPHILS % (AUTO) 62 % (42-75); PLATELET COUNT 207 10^3/uL (130-400); WHITE BLOOD COUNT 9.8 10^3/uL (4.3-11.0)
[2021-03-04 01:15] LABS: ALBUMIN 3.3 GM/DL (3.2-4.5); CHLORIDE 105 MMOL/L (98-107); POTASSIUM 4.6 MMOL/L (3.6-5.0); SODIUM 140 MMOL/L (135-145)
[2021-03-04 01:16] LABS: CALCIUM 8.9 MG/DL (8.5-10.1)
[2021-03-04 01:17] LABS: GLUCOSE 125 MG/DL (70-105)
[2021-03-04 01:18] LABS: TOTAL PROTEIN 6.7 GM/DL (6.4-8.2)
[2021-03-04 01:19] LABS: BILIRUBIN,TOTAL 0.4 MG/DL (0.1-1.0); CARBON DIOXIDE 24 MMOL/L (21-32)
[2021-03-04 01:21] LABS: ALKALINE PHOSPHATASE 36 U/L (40-136); GFR ESTIMATED 17
[2021-03-04 01:22] LABS: BUN/CREATININE RATIO 25
[2021-03-04 01:24] LABS: ALANINE AMINOTRANSFERASE 22 U/L (0-55); MAGNESIUM 2.2 MG/DL (1.6-2.4)
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
[2021-03-04] MEDS ORDERED: cloNIDine 0.2 MG (CATAPRES) TAB PO ONE (01:45)
[2021-03-04] MEDS ORDERED: FUROSEMIDE 40 MG/4 ML INJ (LASIX) IVP ONE (01:45)
[2021-03-04 02:35] LABS: BILIRUBIN,URINE NEGATIVE (NEGATIVE); CLARITY,URINE CLEAR; COLOR,URINE YELLOW; GLUCOSE, URINE (UA) NEGATIVE (NEGATIVE); KETONES,URINE NEGATIVE (NEGATIVE); LEUKOCYTE ESTERASE ,URINE NEGATIVE (NEGATIVE); NITRITE,URINE NEGATIVE (NEGATIVE); PROTEIN,URINE 2+ (NEGATIVE)
[2021-03-04 02:47] LABS: BACTERIA,URINE NEGATIVE /HPF
[2021-03-04 02:48] VITALS: BP 189/108
[2021-03-04 02:49] LABS: AMPHETAMINE SCREEN, URINE NEGATIVE (NEGATIVE); BARBITURATE SCREEN URINE NEGATIVE (NEGATIVE); BENZODIAZEPINES SCREEN URINE NEGATIVE (NEGATIVE); CANNABINOID SCREEN, URINE NEGATIVE (NEGATIVE); COCAINE SCREEN URINE NEGATIVE (NEGATIVE); METHADONE STAT NEGATIVE (NEGATIVE); METHAMPHETAMINE SCREEN URINE S NEGATIVE (NEGATIVE); OPIATE SCREEN URINE NEGATIVE (NEGATIVE); OXYCODONE STAT NEGATIVE (NEGATIVE); PROPOXYPHENE STAT NEGATIVE (NEGATIVE); TRICYCLIC ANTIDEPRESSANTS SCRE NEGATIVE (NEGATIVE)
--- NOTE | 2021-03-04 08:07 | Diagnostic Imaging Report ---
INDICATION: Edema. Leg swelling. Comparison is made with a prior study from February 172019. Findings: There appears to be mild enlargement of the cardiac silhouette this can be accentuated by AP technique. There appear to be some minimal fluid within the minor fissure and some central pulmonary vascular congestion but no overt edema or failure. There is no large effusion or evidence of a pneumothorax. No acute osseous abnormalities demonstrated. IMPRESSION: Mild prominence of the cardiac silhouette which can be accentuated by AP technique. There appears to be some central pulmonary vascular congestion but no overt failure evident. Dictated by: Dictated on workstation # [id number]
== END 2021-03-04 03:02 | disposition home or self-care (01) ==
LOC: EDUNIT# 23:44 → ER 23:45
DX: I12.9 Hypertensive chronic kidney disease with stage 1 through stage 4 chronic kidney disease, or unspecified chronic kidney disease (principal); E11.22 Type 2 diabetes mellitus with diabetic chronic kidney disease; N18.30 Chronic kidney disease, stage 3 unspecified; D63.1 Anemia in chronic kidney disease; E11.43 Type 2 diabetes mellitus with diabetic autonomic (poly)neuropathy; F41.9 Anxiety disorder, unspecified; E66.9 Obesity, unspecified; Z68.41 Body mass index [BMI] 40.0-44.9, adult; Z79.4 Long term (current) use of insulin; Z79.899 Other long term (current) drug therapy; Z88.8 Allergy status to other drugs, medicaments and biological substances
CPT/HCPCS: 36415; 71045; 80053; 80306; 81000; 83735; 83880; 84484; 85025; 93005; 93041

== ENCOUNTER 2021-04-27 11:31 | Emergency (ER) | payer MEDICAID ==
[~2021-04-27] VITALS: Ht 165.1 cm; Wt 103.6 kg
[~2021-04-27 11:31] MED LIST changes: -SULF1TAB35 PO; +SULF1TAB38 PO
[2021-04-27 11:47] VITALS: BP 144/96
[2021-04-27 12:37] LABS: EOSINOPHILS % (AUTO) 1 % (0-10); HEMATOCRIT 27 % (35-52); HEMOGLOBIN 8.7 G/DL (11.5-16.0); LYMPHOCYTES % (AUTO) 26 % (12-44); MEAN CORPUSCULAR HEMOGLOBIN 28 PG (25-34); MEAN CORPUSCULAR HGB CONC 32 G/DL (32-36); MEAN CORPUSCULAR VOLUME 87 FL (80-99); MEAN PLATELET VOLUME 12.8 FL (7.4-10.4); MONOCYTES % (AUTO) 7 % (0-12); PLATELET COUNT 220 10^3/uL (130-400); WHITE BLOOD COUNT 8.1 10^3/uL (4.3-11.0)
[2021-04-27 12:38] LABS: BASOPHILS % (AUTO) 0 % (0-10); EOSINOPHILS # (AUTO) 0.1 10^3/uL (0.0-0.3); LYMPHOCYTES # (AUTO) 2.1 X 10^3 (1.0-4.0); MONOCYTES # (AUTO) 0.6 X 10^3 (0.0-1.0); NEUTROPHILS # (AUTO) 5.3 X 10^3 (1.8-7.8); NEUTROPHILS % (AUTO) 66 % (42-75)
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
[2021-04-27 12:52] LABS: POTASSIUM 3.9 MMOL/L (3.6-5.0)
[2021-04-27 12:53] LABS: ALBUMIN 3.7 GM/DL (3.2-4.5); BILIRUBIN,TOTAL 0.2 MG/DL (0.1-1.0); CREATININE SERUM 3.15 MG/DL (0.60-1.30); TOTAL PROTEIN 7.3 GM/DL (6.4-8.2)
== END 2021-04-27 13:25 | disposition home or self-care (01) ==
LOC: EDUNIT# 11:31 → ER FS 11:33
DX: I12.9 Hypertensive chronic kidney disease with stage 1 through stage 4 chronic kidney disease, or unspecified chronic kidney disease (principal); D63.1 Anemia in chronic kidney disease; E11.22 Type 2 diabetes mellitus with diabetic chronic kidney disease; N18.30 Chronic kidney disease, stage 3 unspecified; E66.9 Obesity, unspecified; F41.9 Anxiety disorder, unspecified; Z68.38 Body mass index [BMI] 38.0-38.9, adult; Z79.4 Long term (current) use of insulin; Z79.899 Other long term (current) drug therapy
CPT/HCPCS: 36415; 80053; 83735; 85025

== ENCOUNTER 2021-05-08 14:20 | Emergency (ER) | payer MEDICAID ==
[~2021-05-08] VITALS: Ht 165.1 cm; Wt 101.0 kg
[2021-05-08 14:22] VITALS: BP 180/91
[2021-05-08] MEDS ORDERED: morphine INJ 10 MG/ML 1ML (SYR OR VIAL) IVP STA (14:37)
[2021-05-08] MEDS ORDERED: cefTRIAXone 1,000 MG in WATER (STERILE) FOR INJECTION 10 ML IV ONE (14:45)
[2021-05-08] MEDS ORDERED: TRIM/SULFAMETH 160/800 (SEPTRA DS) TAB PO ONE (14:45)
[2021-05-08 14:48] LABS: HEMATOCRIT 27 % (35-52); HEMOGLOBIN 8.9 G/DL (11.5-16.0); MEAN CORPUSCULAR HEMOGLOBIN 29 PG (25-34); MEAN CORPUSCULAR HGB CONC 33 G/DL (32-36); MEAN CORPUSCULAR VOLUME 89 FL (80-99); MEAN PLATELET VOLUME 12.3 FL (7.4-10.4); NEUTROPHILS % (AUTO) 59 % (42-75); PLATELET COUNT 193 10^3/uL (130-400); WHITE BLOOD COUNT 12.8 10^3/uL (4.3-11.0)
[2021-05-08 14:49] LABS: BASOPHILS # (AUTO) 0.1 10^3/uL (0.0-0.1); BASOPHILS % (AUTO) 1 % (0-10); EOSINOPHILS # (AUTO) 0.1 10^3/uL (0.0-0.3); EOSINOPHILS % (AUTO) 1 % (0-10); LYMPHOCYTES # (AUTO) 3.9 X 10^3 (1.0-4.0); LYMPHOCYTES % (AUTO) 31 % (12-44); MONOCYTES # (AUTO) 1.1 X 10^3 (0.0-1.0); MONOCYTES % (AUTO) 9 % (0-12); NEUTROPHILS # (AUTO) 7.6 X 10^3 (1.8-7.8)
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
[2021-05-08 15:10] LABS: CREATININE SERUM 4.86 MG/DL (0.60-1.30); POTASSIUM 4.2 MMOL/L (3.6-5.0)
[2021-05-08 15:11] LABS: ALBUMIN 3.6 GM/DL (3.2-4.5); BILIRUBIN,TOTAL 0.3 MG/DL (0.1-1.0); CALCIUM 9.3 MG/DL (8.5-10.1); TOTAL PROTEIN 7.3 GM/DL (6.4-8.2)
--- NOTE | 2021-05-08 15:16 | Diagnostic Imaging Report ---
PROCEDURE: US venous upper extremity left. TECHNIQUE: Multiple real-time grayscale images were obtained of left upper extremity in various projections. Additional spectral analysis and color Doppler duplex images were also obtained. INDICATION: Left upper extremity edema and erythema. FINDINGS: Deep veins demonstrate normal venous flow without filling defect. There is normal compressibility and response to augmentation. Superficial veins along the proximal and mid forearm do reveal filling defects within the cephalic vein which correspond to erythema. IMPRESSION: Superficial thrombophlebitis of cephalic vein in the forearm without deep venous thrombosis identified. Dictated by: Dictated on workstation # [id number]
[2021-05-08] MEDS ORDERED: SULF1TAB38 PO (15:36)
[2021-05-08] MEDS ORDERED: CEPH500T PO (15:36)
== END 2021-05-08 15:41 | disposition home or self-care (01) ==
LOC: EDUNIT# 14:20 → ER FS 14:23
DX: L03.114 Cellulitis of left upper limb (principal); I80.8 Phlebitis and thrombophlebitis of other sites; D72.829 Elevated white blood cell count, unspecified; I12.9 Hypertensive chronic kidney disease with stage 1 through stage 4 chronic kidney disease, or unspecified chronic kidney disease; E11.22 Type 2 diabetes mellitus with diabetic chronic kidney disease; N18.4 Chronic kidney disease, stage 4 (severe); E11.40 Type 2 diabetes mellitus with diabetic neuropathy, unspecified; D63.1 Anemia in chronic kidney disease; F41.9 Anxiety disorder, unspecified; E66.9 Obesity, unspecified; Z68.37 Body mass index [BMI] 37.0-37.9, adult; Z88.1 Allergy status to other antibiotic agents; Z91.19 Patient's noncompliance with other medical treatment and regimen; Z79.4 Long term (current) use of insulin; Z79.899 Other long term (current) drug therapy
CPT/HCPCS: 36415; 80053; 83605; 85025; 96374; 96375

== ENCOUNTER → 2021-05-10 | Outpatient (CLI) | payer MEDICAID ==
[~2021-05-10] MED LIST changes: +CEPH500T PO
[2021-05-10 09:00] LABS: ALBUMIN 3.4 GM/DL (3.2-4.5); POTASSIUM 4.6 MMOL/L (3.6-5.0)
[2021-05-10 09:02] LABS: CALCIUM 8.7 MG/DL (8.5-10.1)
[2021-05-10 09:06] LABS: PHOSPHORUS 8.4 MG/DL (2.3-4.7)
[2021-05-10 09:09] LABS: CREATININE SERUM 5.69 MG/DL (0.60-1.30)
== END ==
LOC: LAB 08:07
PROVIDERS: ATTEND Internal Medicine Nephrology
DX: N18.32 Chronic kidney disease, stage 3b (principal); D63.1 Anemia in chronic kidney disease
CPT/HCPCS: 36415; 80069

== ENCOUNTER 2021-08-07 21:04 | Emergency (ER) | payer MEDICAID ==
[~2021-08-07] VITALS: Ht 165.1 cm; Wt 100.0 kg
[~2021-08-07 21:04] MED LIST changes: -LISI2.5T; +LISI2.5T13
[2021-08-07] MEDS ORDERED: fentaNYL INJ 100 MCG/2 ML AMP IVP ONE (21:15)
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
[2021-08-07] MEDS ORDERED: oxyCODONE/APAP 5/325MG (PERCOCET 5) TABLET PO ONE (21:30)
[2021-08-07 21:32] LABS: MEAN CORPUSCULAR VOLUME 95 fL (80-99); MONOCYTES % (AUTO) 7 % (0-12)
[2021-08-07 21:34] LABS: BASOPHILS # (AUTO) 0.1 10^3/uL (0.0-0.1); BASOPHILS % (AUTO) 1 % (0-10); EOSINOPHILS # (AUTO) 0.4 10^3/uL (0.0-0.3); EOSINOPHILS % (AUTO) 3 % (0-10); HEMATOCRIT 28 % (35-52); HEMOGLOBIN 9.1 g/dL (11.5-16.0); LYMPHOCYTES # (AUTO) 3.8 10^3/uL (1.0-4.0); LYMPHOCYTES % (AUTO) 28 % (12-44); MEAN CORPUSCULAR HEMOGLOBIN 31 pg (25-34); MEAN CORPUSCULAR HGB CONC 33 g/dL (32-36); NEUTROPHILS # (AUTO) 8.5 10^3/uL (1.8-7.8); NEUTROPHILS % (AUTO) 61 % (42-75); PLATELET COUNT 220 10^3/uL (130-400); WHITE BLOOD COUNT 13.9 10^3/uL (4.3-11.0)
[2021-08-07 21:52] LABS: ALBUMIN 3.4 GM/DL (3.2-4.5); BILIRUBIN,TOTAL 0.4 MG/DL (0.1-1.0); CALCIUM 9.4 MG/DL (8.5-10.1); CREATININE SERUM 3.66 MG/DL (0.60-1.30); POTASSIUM 4.6 MMOL/L (3.6-5.0); TOTAL PROTEIN 7.1 GM/DL (6.4-8.2)
[2021-08-07 22:54] VITALS: BP 161/86
--- NOTE | 2021-08-08 07:47 | Diagnostic Imaging Report ---
Indication: Right arm pain with decreased pulse Color Doppler velocity and spectral waveform analysis of the vessels of the right upper extremity was performed which shows patent arteries and veins. There is an AV fistula present that is patent. No thrombus is seen. There is monophasic flow seen in the distal radial and ulnar arteries distal to the fistula which may be a steal phenomenon associated with a fistula. No stenoses or occlusions are seen. Impression: No stenosis or occlusions are seen. No thromboembolism is seen. There is an AV fistula which is patent. Dictated by: Dictated on workstation # [id number]
== END 2021-08-07 22:49 | disposition home or self-care (01) ==
LOC: EDUNIT# 21:04 → ER 21:07
DX: M79.601 Pain in right arm (principal); I10 Essential (primary) hypertension; E11.9 Type 2 diabetes mellitus without complications; F41.9 Anxiety disorder, unspecified; E66.9 Obesity, unspecified; Z68.37 Body mass index [BMI] 37.0-37.9, adult; Z79.4 Long term (current) use of insulin; Z79.899 Other long term (current) drug therapy
CPT/HCPCS: 36415; 80053; 85025; 93931

== ENCOUNTER 2021-11-11 23:23 | Inpatient (IN) | payer MEDICAID ==
[~2021-11-11] VITALS: Ht 165 cm; Wt 115.9 kg
[~2021-11-11 23:23] MED LIST changes: -CITA40TA11 PO; +CITA40TA13 PO; +CYCL10TA25 PO; -CYCL10TA9 PO
[2021-11-11] MEDS ORDERED: RT-ALBUTEROL HFA 8.5 GM INHALER IH STA (23:42)
[2021-11-11 23:52] LABS: BASOPHILS # (AUTO) 0.1 10^3/uL (0.0-0.1); BASOPHILS % (AUTO) 0 % (0-10); EOSINOPHILS % (AUTO) 0 % (0-10); HEMATOCRIT 21 % (35-52); LYMPHOCYTES # (AUTO) 1.7 10^3/uL (1.0-4.0); LYMPHOCYTES % (AUTO) 7 % (12-44); MEAN CORPUSCULAR HEMOGLOBIN 32 pg (25-34); MEAN CORPUSCULAR HGB CONC 32 g/dL (32-36); MEAN CORPUSCULAR VOLUME 99 fL (80-99); MEAN PLATELET VOLUME 12.5 fL (9.0-12.2); MONOCYTES # (AUTO) 1.5 10^3/uL (0.0-1.0); MONOCYTES % (AUTO) 6 % (0-12); NEUTROPHILS # (AUTO) 21.5 10^3/uL (1.8-7.8); NEUTROPHILS % (AUTO) 86 % (42-75); PLATELET COUNT 198 10^3/uL (130-400)
[2021-11-11 23:54] LABS: HEMOGLOBIN 6.7 g/dL (11.5-16.0)
[2021-11-12] VITALS (8 sets, daily range): BP systolic 107–188; BP diastolic 87–108
[2021-11-12 00:12] LABS: INR 1.1 (0.8-1.4); PROTHROMBIN TIME PATIENT 14.9 SEC (12.2-14.7)
[2021-11-12] MEDS ORDERED: CEFEPIME INJECTION 2,000 MG in NS (IVPB) 50 ML IV ONE (00:15)
[2021-11-12 00:26] LABS: ALBUMIN 3.2 GM/DL (3.2-4.5); BILIRUBIN,TOTAL 0.5 MG/DL (0.1-1.0); CALCIUM 8.7 MG/DL (8.5-10.1); CREATININE SERUM 3.93 MG/DL (0.60-1.30); POTASSIUM 4.5 MMOL/L (3.6-5.0); TOTAL PROTEIN 6.6 GM/DL (6.4-8.2)
--- NOTE | 2021-11-12 00:30 | ED General ---
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 hospitals in the region have been contacted and there are no beds. We will admit her to the intensive care unit for further evaluation and management. I also contacted the eICU team for handoff. I then contacted [facility] to begin working on transfer given we would still prefer the patient ultimately be somewhere where they have nephrology available for potential future dialysis. (KAYLYNN CRAIN MD) Diagnostic Imaging Diagonstic Imaging: Xray Plain Films/CT/US/NM/MRI: chest Comments Chest x-ray viewed by me. Report not yet available. Multifocal infiltrates and nodular densities consistent with multilobar pneumonia and/or Covid pneumonia. (MEETA HARRISON MD) Critical Care Note Critical Care Start Time: 06:30 Stop Time: 07:25 Total Time (minutes) 55 Progress The patient was at significant risk for respiratory compromise potentially needing intubation. I frequently was in the room reassessing the patient, and spent a lot of time with other physicians discussing the patient's care. All time billed for critical care was separate from procedures. (KAYLYNN CRAIN MD) Departure Impression Primary Impression: Respiratory failure Qualified Codes: J96.91 - Respiratory failure, unspecified with hypoxia Additional Impressions: Pneumonia Qualified Codes: J18.9 - Pneumonia, unspecified organism Sepsis Qualified Codes: A41.9 - Sepsis, unspecified organism; R65.20 - Severe sepsis without septic shock; J96.01 - Acute respiratory failure with hypoxia Chronic kidney disease Qualified Codes: N18.9 - Chronic kidney disease, unspecified COPD exacerbation Severe anemia Disposition: ADMITTED INPATIENT Condition: Critical Admissions Decision to Admit Reason: Admit from ER (General) Decision to Admit/Date: Nov 12, 2021 Time/Decision to Admit Time: 08:00 (KAYLYNN CRAIN MD) Departure-Patient Inst. Referrals: [facility] (PCP) Primary Care Physician PREET MARES APRN (Family) Primary Care Physician Copy Copies To 1: VINCE CEE MD, JOSHUA T MD Nov 12, 2021 00:30 KAYLYNN CRAIN MD Nov 12, 2021 08:42
[2021-11-12 00:41] LABS: FREE T4 (FREE THYROXINE) 0.93 NG/DL (0.70-1.48)
[2021-11-12] MEDS ORDERED: FUROSEMIDE 40 MG/4 ML INJ (LASIX) IVP ONE ×2 (01:15→19:45)
[2021-11-12] MEDS ORDERED: NS IV 500 ML 500 ML ONE (01:18)
[2021-11-12 01:42] LABS: BURR CELLS SLIGHT; LYMPHOCYTES % (MANUAL) 9 %; MICROCYTOSIS SLIGHT; MONOCYTES % (MANUAL) 2 %; MYELOCYTES % 1 %; NEUTROPHILS % (MANUAL) 88 %
[2021-11-12 02:04] LABS: BILIRUBIN,URINE NEGATIVE (NEGATIVE); CLARITY,URINE CLEAR; COLOR,URINE YELLOW; GLUCOSE, URINE (UA) TRACE (NEGATIVE); KETONES,URINE NEGATIVE (NEGATIVE); LEUKOCYTE ESTERASE ,URINE NEGATIVE (NEGATIVE); NITRITE,URINE NEGATIVE (NEGATIVE); PH,URINE 6.5 (5-9); PROTEIN,URINE 3+ (NEGATIVE)
[2021-11-12 02:14] LABS: BACTERIA,URINE TRACE /HPF; RBC,URINE 0-2 /HPF; WBC,URINE 0-2 /HPF
[2021-11-12] MEDS ORDERED: FUROSEMIDE 40 MG/4 ML INJ (LASIX) ONE ×2 (03:50→22:08)
--- NOTE | 2021-11-12 06:44 | Diagnostic Imaging Report ---
INDICATION: Hypoxia Single AP view of the chest is obtained with comparison made to study of 03/04/2021. There has been development of moderate central airspace disease. No pneumothorax identified. There is mild cardiomegaly without definite pleural effusion. IMPRESSION: Predominantly perihilar airspace disease is suggestive of pulmonary edema and may be on the basis of congestive heart failure. Component of superimposed pneumonitis is not excluded. Dictated by: Dictated on workstation # [id number]
[2021-11-12 06:45] LABS: HEMATOCRIT 23 % (35-52); HEMOGLOBIN 7.5 g/dL (11.5-16.0); MEAN CORPUSCULAR HEMOGLOBIN 31 pg (25-34); MEAN CORPUSCULAR HGB CONC 33 g/dL (32-36); MEAN CORPUSCULAR VOLUME 95 fL (80-99); PLATELET COUNT 192 10^3/uL (130-400); WHITE BLOOD COUNT 22.4 10^3/uL (4.3-11.0)
[2021-11-12 07:13] LABS: ALBUMIN 3.1 GM/DL (3.2-4.5); BILIRUBIN,TOTAL 0.6 MG/DL (0.1-1.0); CALCIUM 8.6 MG/DL (8.5-10.1); CREATININE SERUM 3.96 MG/DL (0.60-1.30); MAGNESIUM 2.2 MG/DL (1.6-2.4); POTASSIUM 4.8 MMOL/L (3.6-5.0); TOTAL PROTEIN 6.5 GM/DL (6.4-8.2)
[2021-11-12] MEDS ORDERED: FUROSEMIDE 40 MG/4 ML INJ (LASIX) IVP STA (07:16)
[2021-11-12 08:22] LABS: ABG BASE EXCESS -5.1 MMOL/L (-2.5-2.5); ABG OXYGEN SATURATION 93 % (94-100); ABG PO2 76 MMHG (79-93); ABG TCO2 20.8 MMOL/L (21.0-31.0)
[2021-11-12 08:26] LABS: ABG PH 7.34 (7.37-7.43); INSPIRED O2 45; VENTILATOR NO
[2021-11-12 08:28] LABS: ABG PCO2 38 MMHG (35-45)
[2021-11-12] MEDS ORDERED: CATHETER FLUSH 10 ML SYR IV PRN (10:00)
[2021-11-12] MEDS: inSUlin ASPART (NovoLOG) 1 UNIT/0.01 ML (CHARGE PER UNIT) SC SCH ×3 (11:48→21:45)
[2021-11-12] MEDS: CATHETER FLUSH 10 ML SYR IV SCH ×2 (14:10→22:39)
[2021-11-12] MEDS ORDERED: LEVO25TA5 PO (14:52)
[2021-11-12] MEDS ORDERED: GLUC1VIA15 IJ (14:52)
[2021-11-12] MEDS ORDERED: SEVE800T13 PO (14:52)
[2021-11-12] MEDS ORDERED: NIFE-25 PO (14:52)
[2021-11-12] MEDS ORDERED: BUSP10TA95 PO (14:52)
[2021-11-12] MEDS ORDERED: INSU100I48 SC (14:52)
[2021-11-12] MEDS ORDERED: FURO40TA4 PO (14:52)
[2021-11-12] MEDS ORDERED: TRZ50T PO (14:52)
[2021-11-12] MEDS ORDERED: DULO60CA59 PO (14:52)
[2021-11-12] MEDS ORDERED: ACET-2840 PO (14:52)
[2021-11-12] MEDS ORDERED: MULT-1136 PO (14:52)
[2021-11-12] MEDS ORDERED: MONT-40 PO (14:52)
[2021-11-12] MEDS ORDERED: METO200T48 PO (14:52)
[2021-11-12] MEDS ORDERED: SEVE800T27 PO (14:52)
[2021-11-12] MEDS ORDERED: ASPI-999 PO (14:52)
[2021-11-12] MEDS ORDERED: DICY20TA PO (14:52)
[2021-11-12] MEDS ORDERED: CLOP75TA28 PO (14:52)
[2021-11-12] MEDS ORDERED: INSU100I76 SC (14:52)
[2021-11-12] MEDS ORDERED: DULO20CA19 PO (14:52)
[2021-11-12] MEDS ORDERED: LACT1CAP8 PO (14:52)
[2021-11-12] MEDS ORDERED: ERGO1250 PO (14:52)
[2021-11-12] MEDS ORDERED: MELA3TAB39 PO (14:52)
[2021-11-12] MEDS ORDERED: OMEG-218 PO (14:52)
[2021-11-12] MEDS ORDERED: OXYC1TAB11 PO (14:52)
[2021-11-12] MEDS ORDERED: POLY17PO6 PO (14:52)
[2021-11-12] MEDS ORDERED: NF-OLOP5ML OU (14:52)
[2021-11-12] MEDS ORDERED: ALLO100T PO (14:52)
[2021-11-12] MEDS ORDERED: ATOR80TA76 PO (14:52)
[2021-11-12] MEDS ORDERED: GABA300C PO (14:52)
[2021-11-12] MEDS ORDERED: LIRA0.6P3 SQ (15:09)
--- NOTE | 2021-11-12 15:27 | History & Physical ---
HPI History of Present Illness: 51 yo female called ambulance due to feeling short of breath and having productive cough. COVID negative, reports she had COVID infection in September 2020. Is on bipap and feeling better now. Source: patient Date seen by provider: Nov 12, 2021 Time Seen by Provider: 17:15 Attending Physician Vince Castillo MD PCP Center/[facility] [place] Consult Date of Admission Nov 12, 2021 at 08:28 Home Medications Home Medications Reviewed patient Home Medication Reconciliation performed by pharmacy medication reconciliations coroner technician and/or nursing. Patients Allergies have been reviewed. Allergies Coded Allergies: metronidazole (Unverified Allergy, Mild, RASH, 10/30/19) MACULAR RASH amlodipine (Verified Allergy, Unknown, 10/25/19) clarithromycin (Verified Allergy, Unknown, 10/21/19) hydrocodone (Verified Allergy, Unknown, 10/21/19) DST-Xpffru-Ssnaye Hx Patient Social History Smoking Status: Never a Smoker 2nd Hand Smoke Exposure: No Recent Hopitalizations: No Alcohol Use?: No Have you traveled recently?: No Immunizations Up To Date Tetanus Booster (TDap): Unknown Influenza Vaccine Up-to-Date: No; Not Current Past Medical History PMHx: DMII HTN Asthma Depression Anxiety Fibromyalgia CVA SurgHx: 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 C section x 4 Laparoscopy I&D Family Medical History Significant Family History: No Pertinent Family Hx Family History: Asthma G8 BROTHER G8 BROTHER Cardiovascular disease 19 FATHER G8 BROTHER Diabetes mellitus 19 MOTHER G8 BROTHER G8 BROTHER Kidney disease G8 BROTHER Myocardial infarction 19 FATHER Respiratory disorder G8 BROTHER G8 BROTHER Review of Systems (CHC) Constitutional: No chills, No fever, No weakness EENTM: No vision loss, No throat pain Respiratory: cough, short of breath Cardiovascular: No chest pain Gastrointestinal: No abdominal pain, No diarrhea, No nausea, No vomiting Genitourinary: No dysuria, No hematuria Musculoskeletal: No back pain Reviewed Test Results Reviewed Test Results Lab Laboratory Tests Test 11/11/21 23:38 11/12/21 01:55 11/12/21 03:57 11/12/21 06:20 Range/Units White Blood Count 25.0 H 4.3-11.0 10^3/uL Red Blood Count 2.11 L 3.80-5.11 10^6/uL Hemoglobin 6.7 *L 11.5-16.0 g/dL Hematocrit 21 L 35-52 % Mean Corpuscular Volume 99 80-99 fL Mean Corpuscular Hemoglobin 32 25-34 pg Mean Corpuscular Hemoglobin Concent 32 32-36 g/dL Red Cell Distribution Width 14.1 10.0-14.5 % Platelet Count 198 130-400 10^3/uL Mean Platelet Volume 12.5 H 9.0-12.2 fL Immature Granulocyte % (Auto) 1 % Neutrophils (%) (Auto) 86 H 42-75 % Lymphocytes (%) (Auto) 7 L 12-44 % Monocytes (%) (Auto) 6 0-12 % Eosinophils (%) (Auto) 0 0-10 % Basophils (%) (Auto) 0 0-10 % Neutrophils # (Auto) 21.5 H 1.8-7.8 10^3/uL Lymphocytes # (Auto) 1.7 1.0-4.0 10^3/uL Monocytes # (Auto) 1.5 H 0.0-1.0 10^3/uL Eosinophils # (Auto) 0.0 0.0-0.3 10^3/uL Basophils # (Auto) 0.1 0.0-0.1 10^3/uL Immature Granulocyte # (Auto) 0.2 H 0.0-0.1 10^3/uL Neutrophils % (Manual) 88 % Lymphocytes % (Manual) 9 % Monocytes % (Manual) 2 % Myelocytes % 1 % Anisocytosis Microcytosis SLIGHT Macrocytosis SLIGHT [place] Cells SLIGHT Prothrombin Time 14.9 H 12.2-14.7 SEC INR Comment 1.1 0.8-1.4 Activated Partial Thromboplast Time 33 24-35 SEC Sodium Level 134 L 135-145 MMOL/L Potassium Level 4.5 3.6-5.0 MMOL/L Chloride Level 102 98-107 MMOL/L Carbon Dioxide Level 15 L 21-32 MMOL/L Anion Gap 17 H 5-14 MMOL/L Blood Urea Nitrogen 63 H 7-18 MG/DL Creatinine 3.93 H 0.60-1.30 MG/DL Estimat Glomerular Filtration Rate 13 BUN/Creatinine Ratio 16 Glucose Level 158 H 70-105 MG/DL Lactic Acid Level 0.78 0.50-2.00 MMOL/L Calcium Level 8.7 8.5-10.1 MG/DL Corrected Calcium 9.3 8.5-10.1 MG/DL Total Bilirubin 0.5 0.1-1.0 MG/DL Aspartate Amino Transf (AST/SGOT) 20 5-34 U/L Alanine Aminotransferase (ALT/SGPT) 14 0-55 U/L Alkaline Phosphatase 35 L 40-136 U/L C-Reactive Protein High Sensitivity 23.32 H 0.00-0.50 MG/DL B-Type Natriuretic Peptide 1171.5 H <100.0 PG/ML Total Protein 6.6 6.4-8.2 GM/DL Albumin 3.2 3.2-4.5 GM/DL Procalcitonin 0.96 H <0.10 NG/ML Thyroid Stimulating Hormone (TSH) 4.15 0.35-4.94 UIU/ML Free Thyroxine 0.93 0.70-1.48 NG/DL Influenza Type A (RT-PCR) Not Detected Not Detecte Influenza Type B (RT-PCR) Not Detected Not Detecte SARS-CoV-2 RNA (RT-PCR) Not Detected Not Detecte Urine Color YELLOW Urine Clarity CLEAR Urine pH 6.5 5-9 Urine Specific [place] 1.025 H 1.016-1.022 Urine Protein 3+ H NEGATIVE Urine Glucose (UA) TRACE H NEGATIVE Urine Ketones NEGATIVE NEGATIVE Urine Nitrite NEGATIVE NEGATIVE Urine Bilirubin NEGATIVE NEGATIVE Urine Urobilinogen 0.2 < = 1.0 MG/DL Urine Leukocyte Esterase NEGATIVE NEGATIVE Urine RBC (Auto) 1+ H NEGATIVE Urine RBC 0-2 /HPF Urine WBC 0-2 /HPF Urine Squamous Epithelial Cells 2-5 /HPF Urine Crystals NONE /LPF Urine Bacteria TRACE /HPF Urine Casts PRESENT /LPF Urine Hyaline Casts 2-5 H /LPF Urine Mucus NEGATIVE /LPF Urine Culture Indicated NO Glucometer 182 H 184 H 70-110 MG/DL Test 11/12/21 06:35 11/12/21 08:10 11/12/21 08:12 11/12/21 11:24 Range/Units White Blood Count 22.4 H 4.3-11.0 10^3/uL Red Blood Count 2.39 L 3.80-5.11 10^6/uL Hemoglobin 7.5 L 11.5-16.0 g/dL Hematocrit 23 L 35-52 % Mean Corpuscular Volume 95 80-99 fL Mean Corpuscular Hemoglobin 31 25-34 pg Mean Corpuscular Hemoglobin Concent 33 32-36 g/dL Red Cell Distribution Width 14.3 10.0-14.5 % Platelet Count 192 130-400 10^3/uL Mean Platelet Volume 12.0 9.0-12.2 fL Sodium Level 134 L 135-145 MMOL/L Potassium Level 4.8 3.6-5.0 MMOL/L Chloride Level 103 98-107 MMOL/L Carbon Dioxide Level 15 L 21-32 MMOL/L Anion Gap 16 H 5-14 MMOL/L Blood Urea Nitrogen 65 H 7-18 MG/DL Creatinine 3.96 H 0.60-1.30 MG/DL Estimat Glomerular Filtration Rate 13 BUN/Creatinine Ratio 16 Glucose Level 228 H 70-105 MG/DL Calcium Level 8.6 8.5-10.1 MG/DL Corrected Calcium 9.3 8.5-10.1 MG/DL Magnesium Level 2.2 1.6-2.4 MG/DL Total Bilirubin 0.6 0.1-1.0 MG/DL Aspartate Amino Transf (AST/SGOT) 18 5-34 U/L Alanine Aminotransferase (ALT/SGPT) 15 0-55 U/L Alkaline Phosphatase 31 L 40-136 U/L C-Reactive Protein High Sensitivity 25.52 H 0.00-0.50 MG/DL Total Protein 6.5 6.4-8.2 GM/DL Albumin 3.1 L 3.2-4.5 GM/DL Procalcitonin 1.39 H <0.10 NG/ML Glucometer 222 H 237 H 70-110 MG/DL Blood Gas Puncture Site LEFT AC Blood Gas Patient Temperature 37.0 Arterial Blood pH 7.34 *L 7.37-7.43 Arterial Blood Partial Pressure CO2 38 35-45 MMHG Arterial Blood Partial Pressure O2 76 L 79-93 MMHG Arterial Blood HCO3 20 L 23-27 MMOL/L Arterial Blood Total CO2 20.8 L 21.0-31.0 MMOL/L Arterial Blood Oxygen Saturation 93 L 94-100 % Arterial Blood Base Excess -5.1 L -2.5-2.5 MMOL/L Andrea Test NA Blood Gas Ventilator Setting NO Blood Gas Inspired Oxygen 45 Test 11/12/21 15:22 11/12/21 17:55 Range/Units Glucometer 235 H 70-110 MG/DL Sodium Level 135 135-145 MMOL/L Potassium Level 4.7 3.6-5.0 MMOL/L Chloride Level 102 98-107 MMOL/L Carbon Dioxide Level 16 L 21-32 MMOL/L Anion Gap 17 H 5-14 MMOL/L Blood Urea Nitrogen 69 H 7-18 MG/DL Creatinine 3.93 H 0.60-1.30 MG/DL Estimat Glomerular Filtration Rate 13 BUN/Creatinine Ratio 18 Glucose Level 242 H 70-105 MG/DL Calcium Level 9.0 8.5-10.1 MG/DL Radiology CXR: IMPRESSION: Predominantly perihilar airspace disease is suggestive of pulmonary edema and may be on the basis of congestive heart failure. Component of superimposed pneumonitis is not excluded. Physical Exam-([facility]) Physical Exam Vital Signs VS - Last 72 Hours, by Label 11/11/21 11/11/21 11/11/21 11/12/21 23:25 23:25 23:38 01:37 Temp 37.8 36.8 Pulse 109 105 Resp 28 20 B/P (MAP) 170/84 (112) 159/87 Pulse Ox 86 O2 Delivery Room Air Room Air Nasal Cannula NIV Bilevel O2 Flow Rate 6.00 FiO2 35 11/12/21 11/12/21 11/12/21 11/12/21 01:57 03:16 05:25 06:48 Temp 36.8 37.1 37.4 Pulse 105 104 103 99 Resp 20 22 B/P (MAP) 188/108 186/97 167/94 Pulse Ox 94 90 95 95 O2 Delivery NIV Bilevel NIV Bilevel NIV Bilevel O2 Flow Rate 35.00 45.00 FiO2 35 45 11/12/21 11/12/21 11/12/21 11/12/21 07:34 08:13 09:15 09:36 Temp 37.0 Pulse 97 95 93 95 Resp 19 17 16 B/P (MAP) 165/87 162/85 Pulse Ox 94 95 95 O2 Delivery NIV Bilevel NIV Bilevel O2 Flow Rate 45.00 11/12/21 11/12/21 11/12/21 11/12/21 09:45 09:46 10:00 11:00 Pulse 96 95 92 Resp 19 17 17 B/P (MAP) 181/88 174/79 161/88 Pulse Ox 100 100 100 O2 Delivery NIV Bilevel NIV Bilevel NIV Bilevel NIV Bilevel O2 Flow Rate 45.00 45.00 45.00 FiO2 45 11/12/21 11/12/21 11/12/21 11/12/21 11:07 11:15 11:24 11:40 Temp 37.0 36.4 Pulse 93 93 Resp 18 Pulse Ox 100 100 99 O2 Delivery NIV Bilevel O2 Flow Rate 35.00 FiO2 35 11/12/21 11/12/21 11/12/21 11/12/21 12:00 12:34 13:00 14:00 Pulse 90 98 97 100 Resp 12 19 22 B/P (MAP) 124/77 176/94 192/95 Pulse Ox 96 98 91 O2 Delivery NIV Bilevel NIV Bilevel NIV Bilevel O2 Flow Rate 45.00 45.00 45.00 11/12/21 11/12/21 11/12/21 11/12/21 15:00 15:35 15:58 16:00 Temp 36.5 Pulse 99 98 100 Resp 20 28 14 B/P (MAP) 134/102 123/64 Pulse Ox 98 98 96 O2 Delivery NIV Bilevel NIV Bilevel O2 Flow Rate 45.00 35.00 45.00 11/12/21 11/12/21 11/12/21 16:00 17:00 18:00 Pulse 105 106 Resp 17 22 B/P (MAP) 126/76 182/89 Pulse Ox 97 94 100 O2 Delivery Nasal Cannula NIV Bilevel NIV Bilevel O2 Flow Rate 6.00 45.00 45.00 Capillary Refill : Less Than 3 Seconds General Appearance: no apparent distress, obese Respiratory: lungs clear, normal breath sounds; No respiratory distress Cardiovascular: no edema, no murmur, tachycardia Gastrointestinal: normal bowel sounds, non tender, soft Extremities: no pedal edema Neurologic/Psychiatric: alert, normal mood/affect, oriented x 3 Skin: normal color, warm/dry, tattoos/piercings Assessment/Plan Assessment/Plan Admission Status: Inpatient Order (span 2 midnights) Reason for Inpatient Admission: Sepsis, respiratory failure (1) Sepsis Status: Acute Assessment & Plan: Leukocytosis, tachycardic, tachypneic on admit, elevated procalcitonin, possible pneumonia. Started on cefepime. Qualifiers: Qualified Codes: A41.9 - Sepsis, unspecified organism; R65.20 - Severe sepsis without septic shock; J96.01 - Acute respiratory failure with hypoxia (2) Pneumonia Status: Acute Qualifiers: Qualified Codes: J18.9 - Pneumonia, unspecified organism (3) Diabetes mellitus, type 2 Status: Chronic (4) Hypertension Status: Chronic (5) Chronic kidney disease (CKD) Status: Chronic Assessment & Plan: Suspect some of her pulmonary edema is due to her severe CKD, unable to do inpatient dialysis here, unable to find location for transfer for several hours in ER, admitted, and soon after were able to coordinate transfer to [facility]. Qualifiers: Qualified Codes: N18.5 - Chronic kidney disease, stage 5 (6) Hyperlipidemia Status: Chronic (7) Anemia in chronic kidney disease Status: Chronic Assessment & Plan: s/p 1 unit PRBC in ER, no evidence of bleeding Qualifiers: Qualified Codes: N18.5 - Chronic kidney disease, stage 5; D63.1 - Anemia in chronic kidney disease (8) Leukocytosis Status: Acute (9) Respiratory failure Status: Acute Assessment & Plan: Suspect secondary to pulmonary edema, requiring bipap, received IV lasix 40 mg last night and this morning, will give additional 100 mg per Director Security Management recommendation. Qualifiers: Qualified Codes: J96.91 - Respiratory failure, unspecified with hypoxia (10) DVT prophylaxis Status: Acute Assessment & Plan: Heparin VINCE CASTILLO MD Nov 12, 2021 15:27
[2021-11-12] MEDS: RT-ALBUTEROL HFA 8.5 GM INHALER IH SCH ×2 (15:35→22:10)
[2021-11-12] MEDS ORDERED: polyethylene glycoL POWDER 17 GM (MIRALAX) PACK PO PRN (15:45)
[2021-11-12] MEDS ORDERED: traZODone 50 MG (DESYREL) TAB PO PRN (15:45)
[2021-11-12] MEDS ORDERED: oxyCODONE/APAP 5/325MG (PERCOCET 5) TABLET PO PRN (15:45)
[2021-11-12] MEDS ORDERED: NON-FORMULARY MEDICATION 1 EA EA (Acetaminophen (Tylenol 8 Hour) 650 MG) PO PRN (15:45)
[2021-11-12] MEDS ORDERED: ACETAMINOPHEN 325 MG TABLET PO PRN (16:00)
--- NOTE | 2021-11-12 16:16 | Tele-ICU Consult ---
History of Present Illness History of Present Illness Date Seen by Provider: Nov 12, 2021 Time Seen by Provider: 09:04 Date of Admission Allergies and Home Medications Allergies Coded Allergies: metronidazole (Unverified Allergy, Mild, RASH, 10/30/19) MACULAR RASH amlodipine (Verified Allergy, Unknown, 10/25/19) clarithromycin (Verified Allergy, Unknown, 10/21/19) hydrocodone (Verified Allergy, Unknown, 10/21/19) Home Medications Acetaminophen 650 Mg Tablet.er, 650 MG PO Q6H PRN for PAIN-MILD (1-4) OR TEM PATURE, (Reported) Allopurinol 100 Mg Tablet, 100 MG PO DAILY, (Reported) Aspirin 81 Mg Tab.chew, 81 MG PO DAILY, (Reported) Atorvastatin Calcium 80 Mg Tablet, 80 MG PO HS, (Reported) Buspirone HCl 10 Mg Tablet, 10 MG PO 0900,1700, (Reported) Clopidogrel Bisulfate 75 Mg Tablet, 75 MG PO DAILY, (Reported) Dicyclomine HCl 20 Mg Tablet, 20 MG PO ACHS PRN for CRAMPING, (Reported) Duloxetine HCl 20 Mg Capsule.dr, 20 MG PO DAILY, (Reported) TAKES 20MG +60MG TO EQUAL 80MG DAILY Duloxetine HCl 60 Mg Capsule.dr, 60 MG PO DAILY, (Reported) TAKES 20MG +60MG TO EQUAL 80MG DAILY Ergocalciferol (Vitamin D2) 1,250 Mcg Capsule, 1,250 MCG PO FRI, (Reported) Furosemide 40 Mg Tablet, 40 MG PO DAILY, (Reported) Gabapentin 300 Mg Capsule, 300 MG PO 0900,1700, (Reported) Glucagon HCl 1 Mg Vial, 1 MG IJ UD PRN for BLOOD GLUCOSE LESS THAN 70, (Reported) Insulin Glargine-Yfgn 100 Unit/1 Ml Insuln.pen, 12 UNITS SC BID, (Reported) Insulin Lispro 100 Unit/1 Ml Insuln.pen, 8 UNITS SC AC, (Reported) NOTIFY PCP IF BS LESS THAN 70 OR GREATER THEN 400 Lactobacillus Acidophilus 1 Each Capsule, 1 EACH PO DAILY, (Reported) Levothyroxine Sodium 25 Mcg Tablet, 25 MCG PO DAILY, (Reported) Liraglutide 0.6 Mg/0.1 Ml Pen.injctr, 0.6 MG SQ DAILY, (Reported) Melatonin 3 Mg Tablet, 3 MG PO HS PRN for INSOMNIA, (Reported) Metoprolol Succinate 200 Mg Tab.er.24h, 200 MG PO HS, (Reported) HOLD FOR PULSE <60 Montelukast Sodium 10 Mg Tablet, 10 MG PO HS, (Reported) Multivitamin 1 Each Tablet, 1 EACH PO DAILY, (Reported) Nifedipine 30 Mg Tab.er.24, 30 MG PO DAILY, (Reported) Olopatadine HCl 5 Ml Drops, 1 DROP OU DAILY, (Reported) Guide Rock-3 Acid Ethyl Esters 1 Gm Capsule, 2 GM PO DAILY, (Reported) TAKES 2 (1GM) CAPS Oxycodone HCl/Acetaminophen 1 Each Tablet, 1 EA PO Q6H PRN for PAIN-MODERATE (5- 7), (Reported) Polyethylene Glycol 3350 17 Gm Powd.pack, 17 GM PO DAILY PRN for CONSTIPATION- 2ND LINE, (Reported) Sevelamer Carbonate 800 Mg Tablet, 1,600 MG PO 1730, (Reported) TAKES 2 (800MG) TABS Sevelamer HCl 800 Mg Tablet, 800 MG PO 0730,1230, (Reported) Trazodone HCl 50 Mg Tablet, 50-100 MG PO HS PRN for SLEEP, (Reported) Past Medical/Social/Family Hx Patient Social History Tobacco Use?: No Smoking Status: Never a Smoker Smokeless Tobacco Frequency: Never a User Use of E-Cig and/or Vaping dev: No Substance use?: No Alcohol Use?: No Pt stated abuse/neglect: No Immunizations Up To Date Influenza Vaccine Up-to-Date: No; Not Current Tetanus Booster (TDap): Less Than 5 Years Current Status Communicates: Verbally Primary Language: [place] Citizen Preferred Spoken Language: [place] Citizen Is interpretation needed?: No Past Medical History PMHx: DMII HTN Asthma Depression Anxiety Fibromyalgia CVA SurgHx: 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 C section x 4 Laparoscopy I&D Review of Systems Constitutional: see HPI Focused Exam Lactate Level 11/11/21 23:38: Lactic Acid Level 0.78 Height, Weight, BMI Height: 5'5.00" Weight: 221lbs. 4.8oz. 100.646876gy; 42.42 BMI Method:Stated Time of Focused Exam: 04:00 Exam Exam Patient acknowledged, consented, and participated in this virtual visit which was conducted using real time audio/video Vital Signs Date Time Temp Pulse Resp B/P (MAP) Pulse Ox O2 Delivery O2 Flow Rate FiO2 1/31/22 16:00 100 14 123/64 96 NIV Bilevel 45.00 11/12/21 15:58 36.5 11/12/21 15:35 98 28 98 35.00 11/12/21 15:00 99 20 134/102 98 NIV Bilevel 45.00 11/12/21 14:00 100 22 192/95 91 NIV Bilevel 45.00 11/12/21 13:00 97 19 176/94 98 NIV Bilevel 45.00 11/12/21 12:34 98 11/12/21 12:00 90 12 124/77 96 NIV Bilevel 45.00 11/12/21 11:40 99 NIV Bilevel 35 11/12/21 11:24 36.4 11/12/21 11:15 37.0 93 100 11/12/21 11:07 93 18 100 35.00 11/12/21 11:00 92 17 161/88 100 NIV Bilevel 45.00 11/12/21 10:00 95 17 174/79 100 NIV Bilevel 45.00 11/12/21 09:46 NIV Bilevel 45 11/12/21 09:45 96 19 181/88 100 NIV Bilevel 45.00 11/12/21 09:36 95 11/12/21 09:15 93 16 162/85 95 NIV Bilevel 11/12/21 08:13 37.0 95 17 165/87 95 NIV Bilevel 11/12/21 07:34 97 19 94 45.00 11/12/21 06:48 37.4 99 22 167/94 95 NIV Bilevel 45.00 11/12/21 05:25 37.1 103 20 186/97 95 NIV Bilevel 45 11/12/21 03:16 104 21 90 35.00 11/12/21 01:57 36.8 105 20 188/108 94 NIV Bilevel 35 11/12/21 01:37 36.8 105 20 159/87 NIV Bilevel 35 11/11/21 23:38 86 Nasal Cannula 6.00 11/11/21 23:25 37.8 109 28 170/84 (112) Room Air 11/11/21 23:25 Room Air I & O 11/12/21 07:00 Intake Total 50 ml Output Total 475 ml Balance -425 ml Height & Weight Height: 5'5.00" Weight: 221lbs. 4.8oz. 100.502624se; 42.42 BMI Method:Stated General Appearance: WD/WN, Mild Distress, Moderate Distress, Obese HEENT: PERRL/EOMI, Normal ENT Inspection Neck: Normal Inspection; No JVD Respiratory: Lungs Clear, Normal Breath Sounds Cardiovascular: No Murmur, Normal Peripheral Pulses, Tachycardia, Other (Diffuse edema) Capillary Refill: Less Than 3 Seconds Peripheral Pulses: 1+ Radial Pulses (R) Gastrointestinal: normal bowel sounds, non tender, soft Extremity: Non Tender, Pedal Edema Neurologic/Psychiatric: Alert, Oriented x3, No Motor/Sensory Deficits, steel hanger II- XII Norm as Tested, Other (Anxious) Results Lab Laboratory Tests 11/11/21 23:38 11/12/21 06:35 Assessment/Plan Assessment/Plan (Tele-ICU Physician , consultation) Available chart/ vitals / labs / Images reviewed H&P is from ER notes Patient's information available about PMH, Shx, Fhx allergy reviewed in EMR. ROS as per chart and RN report Now in ICU, hemodynamically stable Video assessment done using teleICU camera, rest of exam as per RN Discussed with RN. Consultants: Hospital course: 11/12 - to ER with SOA , on BIPAP - to ICU A/P Acute reso failure, suspected CHFwith anemia? VO ?. Given recent CODID - PE is on diff list ( but can not do CT and not candidate for empiric AC given low Hb ) - BIPAP 09/17 45 % rr 17 tv 600 MV 11L - diuresis - lasix 80 - 400 cc Suspecteed CHF - ECHO 2019 EF 65 , RVSP 20 mm Anemia - ? chronic due to CKD, ? no acute bleeding suspected - received 1U pRBC CKD - stable - has fustula , not on HD yet COvid 09/2021 - given decardrone in ER - need to follow indications ? Cefepime to cont DM II - ISS Lines : (Central Line Necessity Reviewed) Jay: OG: Nutrition: Analgesia: Anxiety/ delirium VTE Prophylaxis: scd Stress Ulcer Prophylaxis: Glycemic Control: Plans in collaboration with bedside consultants and IM MDs. Discussed with RN to reach out if any questions or concerns A total of 33minutes of critical care time was devoted to this patient today, required to treat and/or prevent further deterioration of critical care condition ( as above ) . JAYLON VELASQUEZ MD Nov 12, 2021 16:16
[2021-11-12] MEDS: FUROSEMIDE 40 MG/4 ML INJ (LASIX) IVP SCH (16:23)
[2021-11-12] MEDS ORDERED: SEVELAMER CARBONATE 800 MG TABLET (RENVELA) PO SCH (17:30)
[2021-11-12 18:21] LABS: POTASSIUM 4.7 MMOL/L (3.6-5.0)
[2021-11-12 18:27] LABS: CREATININE SERUM 3.93 MG/DL (0.60-1.30)
[2021-11-12] MEDS ORDERED: NON-FORMULARY MEDICATION 1 EA EA (Metoprolol Succinate 200 MG) PO SCH (21:00)
[2021-11-12] MEDS ORDERED: meTOprolol SUCCINATE 100 MG (TOPROL XL) TAB PO SCH (21:00)
[2021-11-12] MEDS ORDERED: MONTELUKAST 10 MG (SINGULAIR) TAB PO SCH (21:00)
[2021-11-13] MEDS ORDERED: CEFEPIME 2,000 MG/NS 50 ML IVPB IV SCH ×2
[2021-11-13 02:24] VITALS: BP 150/79
[2021-11-13] MEDS: RT-ALBUTEROL HFA 8.5 GM INHALER IH SCH (02:24)
[2021-11-13 05:05] LABS: BASOPHILS % (AUTO) 0 % (0-10); EOSINOPHILS % (AUTO) 0 % (0-10); HEMATOCRIT 21 % (35-52); LYMPHOCYTES # (AUTO) 1.4 10^3/uL (1.0-4.0); LYMPHOCYTES % (AUTO) 8 % (12-44); MEAN CORPUSCULAR HEMOGLOBIN 31 pg (25-34); MEAN CORPUSCULAR HGB CONC 32 g/dL (32-36); MEAN CORPUSCULAR VOLUME 97 fL (80-99); MEAN PLATELET VOLUME 12.4 fL (9.0-12.2); MONOCYTES # (AUTO) 1.2 10^3/uL (0.0-1.0); MONOCYTES % (AUTO) 7 % (0-12); NEUTROPHILS # (AUTO) 14.5 10^3/uL (1.8-7.8); NEUTROPHILS % (AUTO) 84 % (42-75); PLATELET COUNT 218 10^3/uL (130-400); WHITE BLOOD COUNT 17.4 10^3/uL (4.3-11.0)
[2021-11-13 05:12] LABS: HEMOGLOBIN 6.7 g/dL (11.5-16.0)
[2021-11-13 05:26] LABS: ALBUMIN 2.9 GM/DL (3.2-4.5)
[2021-11-13 05:27] LABS: POTASSIUM 4.3 MMOL/L (3.6-5.0)
[2021-11-13 05:28] LABS: CALCIUM 8.7 MG/DL (8.5-10.1)
[2021-11-13 05:29] LABS: TOTAL PROTEIN 5.9 GM/DL (6.4-8.2)
[2021-11-13 05:31] LABS: BILIRUBIN,TOTAL 0.4 MG/DL (0.1-1.0)
[2021-11-13 05:32] LABS: PHOSPHORUS 6.8 MG/DL (2.3-4.7)
[2021-11-13 05:33] LABS: CREATININE SERUM 4.21 MG/DL (0.60-1.30)
[2021-11-13 05:35] LABS: MAGNESIUM 2.3 MG/DL (1.6-2.4)
[2021-11-13] MEDS: inSUlin ASPART (NovoLOG) 1 UNIT/0.01 ML (CHARGE PER UNIT) SC SCH (05:51)
[2021-11-13] MEDS: FUROSEMIDE 40 MG/4 ML INJ (LASIX) IVP SCH (05:51)
[2021-11-13] MEDS: CATHETER FLUSH 10 ML SYR IV SCH (05:51)
[2021-11-13] MEDS ORDERED: KCL 20 MEQ TAB (K-DUR) PO SCH (06:00)
[2021-11-13] MEDS ORDERED: POTASSIUM CL 10MEQ/50ML IVPB 50 ML IV SCH (06:00)
[2021-11-13] MEDS ORDERED: MAGNESIUM 1 GM/100 ML IVPB 100 ML IV SCH (06:00)
[2021-11-13] MEDS ORDERED: LEVOTHYROXINE 25 MCG (LEVOTHROID) TAB PO SCH (06:30)
[2021-11-13] MEDS ORDERED: SEVELAMER CARBONATE 800 MG TABLET (RENVELA) PO SCH (07:30)
[2021-11-13] MEDS ORDERED: SEVELAMER HCL 800 MG PO SCH (07:30)
[2021-11-13 07:53] VITALS: BP 159/82
[2021-11-13] MEDS ORDERED: NIFEdipine ER 30 MG (PROCARDIA XL) TAB PO SCH (09:00)
[2021-11-13] MEDS ORDERED: OLOPATADINE 0.1 % OPHTH (PATANOL) 5 ML BTL OU SCH (09:00)
[2021-11-13] MEDS ORDERED: ASPIRIN 81 MG CHEW (CHILDREN'S ASA) PO SCH (09:00)
[2021-11-13] MEDS ORDERED: CLOPIDOGREL 75 MG (PLAVIX) TABLET PO SCH (09:00)
--- NOTE | 2021-11-13 12:45 | Discharge Summary ---
Discharge Summary Hospital Course Problems/Diagnosis: (1) Sepsis Status: Acute Assessment & Plan: Leukocytosis, tachycardic, tachypneic on admit, elevated procalcitonin, possible pneumonia. Started on cefepime. Qualifiers: Qualified Codes: A41.9 - Sepsis, unspecified organism; R65.20 - Severe sepsis without septic shock; J96.01 - Acute respiratory failure with hypoxia (2) Pneumonia Status: Acute Qualifiers: Qualified Codes: J18.9 - Pneumonia, unspecified organism (3) Diabetes mellitus, type 2 Status: Chronic (4) Hypertension Status: Chronic (5) Chronic kidney disease (CKD) Status: Chronic Assessment & Plan: Suspect some of her pulmonary edema is due to her severe CKD, unable to do inpatient dialysis here, unable to find location for transfer for several hours in ER, admitted, and soon after were able to coordinate transfer to [facility]. Creatinine continued to worsen, able to transfer to [facility] am 11/13. Qualifiers: Qualified Codes: N18.5 - Chronic kidney disease, stage 5 (6) Hyperlipidemia Status: Chronic (7) Anemia in chronic kidney disease Status: Chronic Assessment & Plan: s/p 1 unit PRBC in ER, no evidence of bleeding Qualifiers: Qualified Codes: N18.5 - Chronic kidney disease, stage 5; D63.1 - Anemia in chronic kidney disease (8) Leukocytosis Status: Acute (9) Respiratory failure Status: Acute Assessment & Plan: Suspect secondary to pulmonary edema, requiring bipap, received IV lasix 40 mg last night and this morning, will give additional 100 mg per Promotions Director recommendation. Qualifiers: Qualified Codes: J96.91 - Respiratory failure, unspecified with hypoxia (10) DVT prophylaxis Status: Acute Assessment & Plan: Heparin Hospital Course Date of Admission: Nov 12, 2021 at 08:28 Admission Diagnosis : Family Physician/Provider: Michell Kaufman Aprn Date of Discharge: 11/13/21 Discharge Diagnosis: See problem list Hospital Course: Pt admitted briefly while awaiting transfer, see problem list. Transferred to [facility]. Labs and Pending Lab Test: Laboratory Tests 11/12/21 15:22: Glucometer 235H 11/12/21 17:55: Sodium Level 135, Potassium Level 4.7, Chloride Level 102, Carbon Dioxide Level 16L, Anion Gap 17H, Blood Urea Nitrogen 69H, Creatinine 3.93H, Estimat Glomerular Filtration Rate 13, BUN/Creatinine Ratio 18, Glucose Level 242H, Calcium Level 9.0 11/12/21 20:19: Glucometer 222H 11/13/21 04:45: Sodium Level 135, Potassium Level 4.3, Chloride Level 103, Carbon Dioxide Level 17L, Anion Gap 15H, Blood Urea Nitrogen 76H, Creatinine 4.21H, Estimat Glomerular Filtration Rate 12, BUN/Creatinine Ratio 18, Glucose Level 200H, Calcium Level 8.7, White Blood Count 17.4H, Red Blood Count 2.16L, Hemoglobin 6.7*L, Hematocrit 21L, Mean Corpuscular Volume 97, Mean Corpuscular Hemoglobin 31, Mean Corpuscular Hemoglobin Concent 32, Red Cell Distribution Width 14.6H, Platelet Count 218, Mean Platelet Volume 12.4H, Immature Granulocyte % (Auto) 1, Neutrophils (%) (Auto) 84H, Lymphocytes (%) (Auto) 8L, Monocytes (%) (Auto) 7, E osinophils (%) (Auto) 0, Basophils (%) (Auto) 0, Neutrophils # (Auto) 14.5H, Lymphocytes # (Auto) 1.4, Monocytes # (Auto) 1.2H, Eosinophils # (Auto) 0.0, Basophils # (Auto) 0.0, Immature Granulocyte # (Auto) 0.2H, Corrected Calcium 9.6, Phosphorus Level 6.8H, Magnesium Level 2.3, Total Bilirubin 0.4, Aspartate Amino Transf (AST/SGOT) 14, Alanine Aminotransferase (ALT/SGPT) 14, Alkaline Phosphatase 30L, Total Protein 5.9L, Albumin 2.9L 11/13/21 09:05: Lab Scanned Report Transfusion Reaction Form Microbiology 11/12/21 MRSA Screen - Final, Complete 11/11/21 Blood Culture - Preliminary, Resulted No growth Home Meds Active Reported Victoza 3-Aravind (Liraglutide) 0.6 Mg/0.1 Ml Pen.injctr 0.6 Mg SQ DAILY Trazodone HCl 50 Mg Tablet 50-100 Mg PO HS PRN Miralax (Polyethylene Glycol 3350) 17 Gm Powd.pack 17 Gm PO DAILY PRN Melatonin 3 Mg Tablet 3 Mg PO HS PRN Dicyclomine HCl 20 Mg Tablet 20 Mg PO ACHS PRN Tylenol 8 Hour (Acetaminophen) 650 Mg Tablet.er 650 Mg PO Q6H PRN Sevelamer HCl 800 Mg Tablet 800 Mg PO 0730,1230 Neurontin (Gabapentin) 300 Mg Capsule 300 Mg PO 0900,1700 Buspirone HCl 10 Mg Tablet 10 Mg PO 0900,1700 Vitamin D2 (Ergocalciferol (Vitamin D2)) 1,250 Mcg Capsule 1,250 Mcg PO FRI Montelukast Sodium 10 Mg Tablet 10 Mg PO HS Sevelamer Carbonate 800 Mg Tablet 1,600 Mg PO 1730 TAKES 2 (800MG) TABS Pataday (Olopatadine HCl) 5 Ml Drops 1 Drop OU DAILY Nifedipine ER (Nifedipine) 30 Mg Tab.er.24 30 Mg PO DAILY Multivitamin 1 Each Tablet 1 Each PO DAILY Metoprolol Succinate 200 Mg Tab.er.24h 200 Mg PO HS HOLD FOR PULSE <60 Levothyroxine Sodium 25 Mcg Tablet 25 Mcg PO DAILY Furosemide 40 Mg Tablet 40 Mg PO DAILY Acidophilus (Lactobacillus Acidophilus) 1 Each Capsule 1 Each PO DAILY [place]-3 Acid Ethyl Esters 1 Gm Capsule 2 Gm PO DAILY TAKES 2 (1GM) CAPS Duloxetine HCl 60 Mg Capsule.dr 60 Mg PO DAILY TAKES 20MG +60MG TO EQUAL 80MG DAILY Duloxetine HCl 20 Mg Capsule.dr 20 Mg PO DAILY TAKES 20MG +60MG TO EQUAL 80MG DAILY Clopidogrel (Clopidogrel Bisulfate) 75 Mg Tablet 75 Mg PO DAILY Atorvastatin Calcium 80 Mg Tablet 80 Mg PO HS Aspirin 81 Mg Tab.chew 81 Mg PO DAILY Allopurinol 100 Mg Tablet 100 Mg PO DAILY Oxycodone-Acetaminophen 5-325 (Oxycodone HCl/Acetaminophen) 1 Each Tablet 1 Ea PO Q6H PRN Glucagon Emergency Kit (Glucagon HCl) 1 Mg Vial 1 Mg IJ UD PRN Insulin Lispro Kwikpen U-100 (Insulin Lispro) 100 Unit/1 Ml Insuln.pen 8 Units SC AC NOTIFY PCP IF BS LESS THAN 70 OR GREATER THEN 400 Insulin Glargine-Yfgn 100 Unit/1 Ml Insuln.pen 12 Units SC BID Assessment/Pt DC Instructions Follow up as directed by JANET after hospitalization. Discharge Physical Examination Allergies: Coded Allergies: metronidazole (Unverified Allergy, Mild, RASH, 10/30/19) MACULAR RASH amlodipine (Verified Allergy, Unknown, 10/25/19) clarithromycin (Verified Allergy, Unknown, 10/21/19) hydrocodone (Verified Allergy, Unknown, 10/21/19) VINCE CEE MD Nov 13, 2021 12:45
== END 2021-11-13 09:52 | disposition short-term general hospital (02) | DRG 871 ==
LOC: EDUNIT# 23:23 → ER 23:24 → ICU 11-12 08:28
PROVIDERS: ADMIT Family Medicine; ATTEND Family Medicine
DX: A41.9 Sepsis, unspecified organism (principal); J96.01 Acute respiratory failure with hypoxia; J18.9 Pneumonia, unspecified organism; J44.0 Chronic obstructive pulmonary disease with (acute) lower respiratory infection; J44.1 Chronic obstructive pulmonary disease with (acute) exacerbation; N18.5 Chronic kidney disease, stage 5; I12.0 Hypertensive chronic kidney disease with stage 5 chronic kidney disease or end stage renal disease; E11.40 Type 2 diabetes mellitus with diabetic neuropathy, unspecified; E11.43 Type 2 diabetes mellitus with diabetic autonomic (poly)neuropathy; E11.319 Type 2 diabetes mellitus with unspecified diabetic retinopathy without macular edema; K31.84 Gastroparesis; E11.22 Type 2 diabetes mellitus with diabetic chronic kidney disease; E78.5 Hyperlipidemia, unspecified; D63.1 Anemia in chronic kidney disease; F32.A Depression, unspecified; F41.9 Anxiety disorder, unspecified; M79.7 Fibromyalgia; Z86.73 Personal history of transient ischemic attack (TIA), and cerebral infarction without residual deficits; Z89.412 Acquired absence of left great toe; Z20.822 Contact with and (suspected) exposure to COVID-19; Z79.4 Long term (current) use of insulin; Z79.82 Long term (current) use of aspirin; Z79.899 Other long term (current) drug therapy; E03.9 Hypothyroidism, unspecified; H35.30 Unspecified macular degeneration; K21.9 Gastro-esophageal reflux disease without esophagitis
CPT/HCPCS: 36415; 51702; 71045; 80048; 80053; 81000; 82805; 82947; 83605; 83735; 83880; 84100; 84145; 84439; 84443; 85007; 85025; 85027; 85610; 85730; 86141; 86850; 86900; 86901; 86920; 87040; 87081; 87088; 87636; 93306; 94640; 94660; 99291

== ENCOUNTER → 2021-12-20 | Outpatient (CLI) | payer MEDICAID ==
[~2021-12-20] MED LIST changes: +ACET-2840 PO; +ALLO100T PO; +ASPI-999 PO; +ATOR80TA76 PO; +BUSP10TA95 PO; +CLOP75TA28 PO; +DICY20TA PO; +DULO20CA19 PO; +DULO60CA59 PO; +ERGO1250 PO; +FURO40TA4 PO; +GABA300C PO; +GLUC1VIA15 IJ; +INSU100I48 SC; +INSU100I76 SC; +LACT1CAP8 PO; +LEVO25TA5 PO; +LIRA0.6P3 SQ; +MELA3TAB39 PO; +METO200T48 PO; +MONT-40 PO; +MULT-1136 PO; +NIFE-25 PO; +OLOP5DRO20 OU; +OMEG-218 PO; +OXYC1TAB11 PO; +POLY17PO6 PO; +SEVE800T13 PO; +SEVE800T27 PO; +TRZ50T PO
--- NOTE | 2021-12-20 16:25 | Diagnostic Imaging Report ---
INDICATION: Left foot pain. History of diabetes. History of previous amputation. COMPARISON: None. FINDINGS: Multiple radiographic views of the left foot were obtained. Patient is status post previous amputation of the 2nd toe and 1st distal phalanx. No unexpected radiopaque foreign bodies are seen. Osseous structures are intact. No suspicious lytic processes are seen. There is no evidence of acute fracture. Joint spaces are maintained. IMPRESSION: 1. No new acute abnormality of the left foot. Please note, osteomyelitis cannot be excluded based on radiographs alone. If there is concern for osteomyelitis, MRI is recommended. 2. Postsurgical changes, as above. No unexpected radiopaque foreign bodies. Dictated by: Dictated on workstation # [id number]
== END ==
LOC: RAD FS 15:12
PROVIDERS: ATTEND Nurse Practitioner Family
DX: L84 Corns and callosities (principal); E11.42 Type 2 diabetes mellitus with diabetic polyneuropathy
CPT/HCPCS: 73630

== ENCOUNTER 2021-12-21 04:14 | Emergency (ER) | payer MEDICAID ==
[~2021-12-21] VITALS: Ht 165 cm; Wt 116.0 kg
[2021-12-21 04:40] LABS: ABG OXYGEN SATURATION 95 % (94-100); ABG PCO2 42 MMHG (35-45); ABG PH 7.43 (7.37-7.43); ABG PO2 79 MMHG (79-93); ABG TCO2 27.7 MMOL/L (21.0-31.0); ALLENS TEST YES-POS; INSPIRED O2 2L NC; VENTILATOR NO
[2021-12-21 04:41] LABS: PATIENT TEMP 39.2
--- NOTE | 2021-12-21 04:43 | ED General ---
General Chief Complaint: Fever-Adult/Adol Stated Complaint: FEVER Nursing Triage Note: BROUGHT IN BY [facility] FROM [facility] FOR N/V X1 FEVER SINCE 199. Source of Information: Patient, EMS, Assisted Records, RN/MD (Gladys SHUKLA) Exam Limitations: No Limitations History of Present Illness Date Seen by Provider: Dec 21, 2021 Time Seen by Provider: 04:14 Initial Comments Patient presents ER by EMS from [facility] with chief complaint that she started having some fever nausea and vomiting this morning about 2:00. She was given some Zofran and states she is no longer having nausea. She was given some Tylenol she thinks she threw it up. No diarrhea or rash. She is a Friday dialysis patient. She has not had a influenza vaccine. She did have COVID-19 vaccination. She had a negative Covid antigen test tonight by nursing at the [facility]. She has had a cough for several weeks but it is nonproductive. She is diabetic type II. Long-term use of insulin. She is not having any pain, earaches, sore throat. Allergies and Home Medications Allergies Coded Allergies: metronidazole (Unverified Allergy, Mild, RASH, 10/30/19) MACULAR RASH amlodipine (Verified Allergy, Unknown, 10/25/19) clarithromycin (Verified Allergy, Unknown, 10/21/19) hydrocodone (Verified Allergy, Unknown, 10/21/19) Patient Home Medication List Home Medication List Reviewed: Yes Acetaminophen (Tylenol 8 Hour) 650 Mg Tablet.er, 650 MG PO Q6H PRN for PAIN-MILD (1-4) OR TEMPATURE, (Reported) Entered as Reported by: BOB ROCHE on 11/12/211451 Allopurinol (Allopurinol) 100 Mg Tablet, 100 MG PO DAILY, (Reported) Entered as Reported by: BOB ROCHE on 11/12/211451 Aspirin (Aspirin) 81 Mg Tab.chew, 81 MG PO DAILY, (Reported) Entered as Reported by: BOB ROCHE on 11/12/211451 Atorvastatin Calcium (Atorvastatin Calcium) 80 Mg Tablet, 80 MG PO HS, (Reported) Entered as Reported by: BOB ROCHE on 11/12/211451 Buspirone HCl (Buspirone HCl) 10 Mg Tablet, 10 MG PO 0900,1700, (Reported) Entered as Reported by: BOB ROCHE on 11/12/211451 Clopidogrel Bisulfate (Clopidogrel) 75 Mg Tablet, 75 MG PO DAILY, (Reported) Entered as Reported by: BOB ROCHE on 11/12/211451 Dicyclomine HCl (Dicyclomine HCl) 20 Mg Tablet, 20 MG PO ACHS PRN for CRAMPING, (Reported) Entered as Reported by: BOB ROCHE on 11/12/211451 Duloxetine HCl (Duloxetine HCl) 20 Mg Capsule.dr, 20 MG PO DAILY, (Reported) Entered as Reported by: BOB ROCHE on 11/12/211451 Duloxetine HCl (Duloxetine HCl) 60 Mg Capsule.dr, 60 MG PO DAILY, (Reported) Entered as Reported by: BOB ROCHE on 11/12/211451 Ergocalciferol (Vitamin D2) (Vitamin D2) 1,250 Mcg Capsule, 1,250 MCG PO FRI, (Reported) Entered as Reported by: BOB ROCHE on 11/12/211451 Furosemide (Furosemide) 40 Mg Tablet, 40 MG PO DAILY, (Reported) Entered as Reported by: BOB ROCHE on 11/12/211451 Gabapentin (Neurontin) 300 Mg Capsule, 300 MG PO 0900,1700, (Reported) Entered as Reported by: BOB ROCHE on 11/12/211451 Glucagon HCl (Glucagon Emergency Kit) 1 Mg Vial, 1 MG IJ UD PRN for BLOOD GLUCOSE LESS THAN 70, (Reported) Entered as Reported by: BOB ROCHE on 11/12/211451 Insulin Glargine-Yfgn (Insulin Glargine-Yfgn) 100 Unit/1 Ml Insuln.pen, 12 UNITS SC BID, (Reported) Entered as Reported by: BOB ROCHE on 11/12/211451 Insulin Lispro (Insulin Lispro Kwikpen U-100) 100 Unit/1 Ml Insuln.pen, 8 UNITS SC AC, (Reported) Entered as Reported by: BOB ROCHE on 11/12/211451 Lactobacillus Acidophilus (Acidophilus) 1 Each Capsule, 1 EACH PO DAILY, (Reported) Entered as Reported by: BOB ROCHE on 11/12/211451 Levothyroxine Sodium (Levothyroxine Sodium) 25 Mcg Tablet, 25 MCG PO DAILY, (Reported) Entered as Reported by: BOB ROCHE on 11/12/211451 Liraglutide (Victoza 3-Aravind) 0.6 Mg/0.1 Ml Pen.injctr, 0.6 MG SQ DAILY, (Reported) Entered as Reported by: BOB ROCHE on 11/12/21 150 Melatonin (Melatonin) 3 Mg Tablet, 3 MG PO HS PRN for INSOMNIA, (Reported) Entered as Reported by: BOB ROCHE on 11/12/211451 Metoprolol Succinate (Metoprolol Succinate) 200 Mg Tab.er.24h, 200 MG PO HS, (Reported) Entered as Reported by: BOB ROCHE on 11/12/211451 Montelukast Sodium (Montelukast Sodium) 10 Mg Tablet, 10 MG PO HS, (Reported) Entered as Reported by: BOB ROCHE on 11/12/211451 Multivitamin (Multivitamin) 1 Each Tablet, 1 EACH PO DAILY, (Reported) Entered as Reported by: BOB ROCHE on 11/12/211451 Nifedipine (Nifedipine ER) 30 Mg Tab.er.24, 30 MG PO DAILY, (Reported) Entered as Reported by: BOB ROCHE on 11/12/211451 Olopatadine HCl (Pataday) 5 Ml Drops, 1 DROP OU DAILY, (Reported) Entered as Reported by: BOB ROCHE on 11/12/211451 [place]-3 Acid Ethyl Esters (Estero-3 Acid Ethyl Esters) 1 Gm Capsule, 2 GM PO DAILY, (Reported) Entered as Reported by: BOB ROCHE on 11/12/211451 Oxycodone HCl/Acetaminophen (Oxycodone-Acetaminophen 5-325) 1 Each Tablet, 1 EA PO Q6H PRN for PAIN-MODERATE (5-7), (Reported) Entered as Reported by: BOB ROCHE on 11/12/211451 Polyethylene Glycol 3350 (Miralax) 17 Gm Powd.pack, 17 GM PO DAILY PRN for CONSTIPATION-2ND LINE, (Reported) Entered as Reported by: BOB ROCHE on 11/12/211451 Sevelamer Carbonate (Sevelamer Carbonate) 800 Mg Tablet, 1,600 MG PO 1730, (Reported) Entered as Reported by: BOB ROCHE on 11/12/21 145 Sevelamer HCl (Sevelamer HCl) 800 Mg Tablet, 800 MG PO 0730,1230, (Reported) Entered as Reported by: BOB ROCHE on 11/12/211451 Trazodone HCl (Trazodone HCl) 50 Mg Tablet, 50-100 MG PO HS PRN for SLEEP, (Reported) Entered as Reported by: BOB ROCHE on 11/12/21 145 Review of Systems Review of Systems Constitutional: No chills, No diaphoresis; fever, malaise EENTM: No ear discharge, No ear pain Respiratory: cough; No phlegm, No short of breath, No wheezing Cardiovascular: No chest pain, No palpitations Gastrointestinal: No abdominal pain, No constipation, No diarrhea; nausea, vomiting Genitourinary: No discharge, No dysuria Musculoskeletal: No back pain, No joint pain Skin: No change in color, No pruritus, No rash All Other Systems Reviewed Negative Unless Noted: Yes Past [place]ftaf-Ayukda Hx Patient Social History Tobacco Use?: No Substance use?: No Alcohol Use?: No Pt feels they are or have been: No Immunizations Up To Date Tetanus Booster (TDap): Unknown Seasonal Allergies Seasonal Allergies: Yes Past Medical History Surgery/Hospitalization HX: DM, Stage IV renal failure, ABDOMINAL, TOE AMPUTATION, R FISTULA, C-SECT, ORTHO, TUBAL, HD MWF, NEUROPATHY, GERD, HYPOTHRYOIDISM, ANXIETY, Surgeries: Yes (LEFT TOE #2 AMPUTATED AND PARTIAL AMPUTATATION OF LEFT GREAT TOE; ) Abdominal, Amputation, Section, Eye Surgery, Orthopedic, Tubal Ligation, Vascular Surgery Respiratory: No Cardiac: Yes Chronic Edema/Swelling, Hypertension Neurological: Yes (PERIPHERAL NEUROPATHY) Neuropathy 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 Genitourinary: Yes (STAGE 3 RENAL FAILURE, NO DIALYSIS) Renal Failure Gastrointestinal: Yes (GASTROPARESIS) Gastroesophageal Reflux Musculoskeletal: Yes (LEFT 2ND TOE AMPUTATED AND PARTIAL LEFT GREAT TOE AMPUTATED) Amputee Endocrine: Yes (OBESITY) Diabetes, Insulin dep, Hypothyroidsim HEENT: Yes (RETINOPATHY) Macular Degeneration Cancer: No Psychosocial: Yes Anxiety Integumentary: Yes (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) Blood Disorders: Yes (ANEMIA) Family Medical History Asthma G8 BROTHER G8 BROTHER Cardiovascular disease 19 FATHER G8 BROTHER Diabetes mellitus 19 MOTHER G8 BROTHER G8 BROTHER Kidney disease G8 BROTHER Myocardial infarction 19 FATHER Respiratory disorder G8 BROTHER G8 BROTHER No Pertinent Family Hx Physical Exam-Suspected Sepsis Physical Exam Vital Signs Vital Signs - First Documented 12/21/21 04:17 Temp 39.2 Pulse 122 Resp 16 B/P (MAP) 167/78 (107) Pulse Ox 95 O2 Delivery Nasal Cannula O2 Flow Rate 2.00 Capillary Refill : Less Than 3 Seconds Blood Pressure Mean: 107 Height, Weight, BMI Height: 5'5.00" Weight: 221lbs. 4.8oz. 100.343968go; 42.00 BMI Method:Stated General Appearance: Chronically ill, Moderate Distress, Obese Eyes: Bilateral Eye Normal Inspection, Bilateral Eye PERRL, Bilateral Eye EOMI HEENT: PERRL/EOMI, Pharynx Normal, Moist Mucous Membranes Neck: Full Range of Motion, Normal Inspection Respiratory: Lungs Clear, Normal Breath Sounds, No Accessory Muscle Use, No Respiratory Distress Cardiovascular: Regular Rate, Rhythm, Normal Peripheral Pulses Gastrointestinal: Normal Bowel Sounds, Non Tender, Soft Extremity: Normal Capillary Refill, Normal Inspection, No Pedal Edema Neurologic/Psychiatric: Alert, Oriented x3 Skin: normal color, warm/dry Focused Exam Lactate Level 12/21/21 04:35: Lactic Acid Level 1.04 Lactic Acid Level Progress/Results/Core Measures Suspected Sepsis SIRS Temperature: Pulse: 122 Respiratory Rate: 16 Laboratory Tests 12/21/21 04:35: White Blood Count 21.5H Blood Pressure 167 /78 Mean: 107 12/21/21 04:35: Lactic Acid Level 1.04 Laboratory Tests 12/21/21 04:35: Creatinine 4.52H, INR Comment 1.0, Platelet Count 235, Total Bilirubin 0.6 Results/Orders Lab Results My Orders Medications Given in ED Vital Signs/I&O Capillary Refill : Less Than 3 Seconds Blood Pressure Mean: 107 Progress Note : Time: 04:44 Progress Note Suspect influenza or similar viral gut bug. Lungs sound clear. We will start a septic work-up with 2 L of fluid, 1 L at a time. She has dialysis scheduled today. Cefepime and vancomycin coverage. Diagnostic Imaging Diagonstic Imaging: Xray Plain Films/CT/US/NM/MRI: chest Comments [facility], [facility]. [place], [place] NAME: COLLINS [facility] REC#: [id number] PT STATUS: REG ER : 1970 PHYSICIAN: RAJIV FLORIAN MD ADMIT DATE: 12/21/21/ER Signed Date of Exam:12/21/21 CHEST 1 VIEW, AP/PA ONLY EXAM: CHEST 1 VIEW, AP/PA ONLY INDICATION: Shortness of air. Cough. Fever. COMPARISON: Chest radiograph 11/12/2021. FINDINGS: Cardiomegaly with mild pulmonary vascular congestion. Patchy airspace opacities in the right lung base. No pleural effusion or pneumothorax. No acute osseous findings. IMPRESSION: 1. Stable cardiomegaly and mild pulmonary vascular congestion. 2. Patchy airspace opacity in the right lung base. The airspace opacities bilaterally have overall improved compared to the prior. Dictated by: Dictated on workstation # [id number] Dict: 12/21/21632 Trans: 12/21/21 08 CV [id number] Interpreted by: YULI MAZARIEGOS MD Electronically signed by: YULI MAZARIEGOS MD 12/21/21802 Reviewed: Reviewed by Me Departure Impression Primary Impression: Pneumonia Qualified Codes: J18.9 - Pneumonia, unspecified organism Additional Impressions: Acute respiratory failure with hypoxemia Hemodialysis patient Disposition: XF SHT-TRM HOSP Condition: Stable Transfer Transfer Reason: Exceeds level of care (No Inpt HD.) Time Spoke to Accepting Phy: 06:00 Transfer Progress Notes 0545: Spoke to triage at [place], [place] and they will have a provider call us back. Dr Hernández accepts the patient in transfer. Triage nurse counsels that it will be a little bit of time before they get a bed assignment opened up. Transfer Facility: [place], [place] Method of Transfer: EMS Departure-Patient Inst. Referrals: [facility] (PCP) Primary Care Physician PREET MARES APRN (Family) Primary Care Physician RAJIV FLORAIN Dec 21, 2021 04:43
[2021-12-21] MEDS ORDERED: NS IV 1000 ML 1,000 ML IV SCH (04:45)
[2021-12-21] MEDS ORDERED: ACETAMINOPHEN 500 MG TAB (TYLENOL) PO ONE (04:45)
[2021-12-21] MEDS ORDERED: CEFEPIME INJECTION 1,000 MG in NS (IVPB) 50 ML IV ONE (04:45)
[2021-12-21 04:50] LABS: BASOPHILS # (AUTO) 0.1 10^3/uL (0.0-0.1); BASOPHILS % (AUTO) 0 % (0-10); EOSINOPHILS # (AUTO) 0.1 10^3/uL (0.0-0.3); EOSINOPHILS % (AUTO) 0 % (0-10); HEMATOCRIT 27 % (35-52); HEMOGLOBIN 8.7 g/dL (11.5-16.0); LYMPHOCYTES # (AUTO) 1.2 10^3/uL (1.0-4.0); LYMPHOCYTES % (AUTO) 6 % (12-44); MEAN CORPUSCULAR HEMOGLOBIN 30 pg (25-34); MEAN CORPUSCULAR HGB CONC 33 g/dL (32-36); MEAN CORPUSCULAR VOLUME 92 fL (80-99); MEAN PLATELET VOLUME 12.7 fL (9.0-12.2); MONOCYTES # (AUTO) 0.8 10^3/uL (0.0-1.0); MONOCYTES % (AUTO) 4 % (0-12); NEUTROPHILS # (AUTO) 19.3 10^3/uL (1.8-7.8); NEUTROPHILS % (AUTO) 90 % (42-75); PLATELET COUNT 235 10^3/uL (130-400); WHITE BLOOD COUNT 21.5 10^3/uL (4.3-11.0)
[2021-12-21] MEDS: VANCOMYCIN INJECTION 1,000 MG in NS (IVPB) 250 ML IV SCH ×2 (04:51→05:45)
[2021-12-21 05:00] LABS: ALBUMIN 3.5 GM/DL (3.2-4.5); POTASSIUM 4.7 MMOL/L (3.6-5.0)
[2021-12-21 05:02] LABS: CALCIUM 9.4 MG/DL (8.5-10.1); FIBRIN DEGRADATION PRODUCTS 2.24 UG/ML (0.00-0.49); PROTHROMBIN TIME PATIENT 13.9 SEC (12.2-14.7)
[2021-12-21 05:03] LABS: TOTAL PROTEIN 6.9 GM/DL (6.4-8.2)
[2021-12-21 05:05] LABS: BILIRUBIN,TOTAL 0.6 MG/DL (0.1-1.0)
[2021-12-21 05:07] LABS: CREATININE SERUM 4.52 MG/DL (0.60-1.30)
[2021-12-21 05:48] LABS: ANISOCYTOSIS SLIGHT; BAND NEUTROPHILS 7 %; LYMPHOCYTES % (MANUAL) 5 %; MONOCYTES % (MANUAL) 3 %; NEUTROPHILS % (MANUAL) 85 %; POIKILOCYTOSIS SLIGHT
[2021-12-21 06:00] LABS: BILIRUBIN,URINE NEGATIVE (NEGATIVE); CLARITY,URINE CLEAR; COLOR,URINE YELLOW; GLUCOSE, URINE (UA) TRACE (NEGATIVE); KETONES,URINE NEGATIVE (NEGATIVE); LEUKOCYTE ESTERASE ,URINE NEGATIVE (NEGATIVE); NITRITE,URINE NEGATIVE (NEGATIVE); PH,URINE 7.5 (5-9); PROTEIN,URINE 3+ (NEGATIVE)
[2021-12-21 06:19] LABS: BACTERIA,URINE FEW /HPF; SQUAMOUS EPITHELIAL CELL,UR 0-2 /HPF
--- NOTE | 2021-12-21 06:39 | Diagnostic Imaging Report ---
EXAM: CHEST 1 VIEW, AP/PA ONLY INDICATION: Shortness of air. Cough. Fever. COMPARISON: Chest radiograph 11/12/2021. FINDINGS: Cardiomegaly with mild pulmonary vascular congestion. Patchy airspace opacities in the right lung base. No pleural effusion or pneumothorax. No acute osseous findings. IMPRESSION: 1. Stable cardiomegaly and mild pulmonary vascular congestion. 2. Patchy airspace opacity in the right lung base. The airspace opacities bilaterally have overall improved compared to the prior. Dictated by: Dictated on workstation # [id number]
[2021-12-21 12:50] VITALS: BP 157/88
== END 2021-12-21 12:52 | disposition short-term general hospital (02) ==
LOC: EDUNIT# 04:14 → ER 04:15
DX: J18.9 Pneumonia, unspecified organism (principal); J96.01 Acute respiratory failure with hypoxia; E11.9 Type 2 diabetes mellitus without complications; E66.9 Obesity, unspecified; Z99.2 Dependence on renal dialysis; Z79.4 Long term (current) use of insulin
CPT/HCPCS: 36415; 71045; 80053; 81000; 82805; 83605; 84145; 85007; 85027; 85379; 85610; 85730; 86141; 87040; 87088; 87636; 99291

== ENCOUNTER → 2022-01-15 | Outpatient (CLI) | payer MEDICAID | LOC: WOUNDCARE 08:36 | PROVIDERS: ATTEND Family Medicine | DX: L98.422 Non-pressure chronic ulcer of back with fat layer exposed (principal); L03.312 Cellulitis of back [any part except buttock and flank]; E11.622 Type 2 diabetes mellitus with other skin ulcer; N18.6 End stage renal disease; D63.1 Anemia in chronic kidney disease | CPT/HCPCS: 11042 ==

== ENCOUNTER → 2022-01-24 | Outpatient (CLI) | payer MEDICAID | LOC: WOUNDCARE 12:48 | PROVIDERS: ATTEND Family Medicine | DX: L98.422 Non-pressure chronic ulcer of back with fat layer exposed (principal); E11.622 Type 2 diabetes mellitus with other skin ulcer; E11.52 Type 2 diabetes mellitus with diabetic peripheral angiopathy with gangrene; E11.22 Type 2 diabetes mellitus with diabetic chronic kidney disease; N18.6 End stage renal disease; D63.1 Anemia in chronic kidney disease | CPT/HCPCS: 99212 ==

== ENCOUNTER 2022-02-06 08:40 | Emergency (ER) | payer MEDICAID ==
[~2022-02-06] VITALS: Ht 165 cm; Wt 98.8 kg
[2022-02-06 09:46] LABS: BASOPHILS # (AUTO) 0.1 10^3/uL (0.0-0.1); BASOPHILS % (AUTO) 0 % (0-10); EOSINOPHILS % (AUTO) 0 % (0-10); HEMATOCRIT 30 % (35-52); HEMOGLOBIN 9.5 g/dL (11.5-16.0); LYMPHOCYTES # (AUTO) 1.7 10^3/uL (1.0-4.0); LYMPHOCYTES % (AUTO) 7 % (12-44); MEAN CORPUSCULAR HEMOGLOBIN 30 pg (25-34); MEAN CORPUSCULAR HGB CONC 32 g/dL (32-36); MEAN CORPUSCULAR VOLUME 94 fL (80-99); MEAN PLATELET VOLUME 12.1 fL (9.0-12.2); MONOCYTES # (AUTO) 0.5 10^3/uL (0.0-1.0); MONOCYTES % (AUTO) 2 % (0-12); NEUTROPHILS # (AUTO) 20.4 10^3/uL (1.8-7.8); NEUTROPHILS % (AUTO) 89 % (42-75); PLATELET COUNT 221 10^3/uL (130-400); WHITE BLOOD COUNT 22.8 10^3/uL (4.3-11.0)
[2022-02-06 10:05] LABS: ALBUMIN 3.6 GM/DL (3.2-4.5); BILIRUBIN,TOTAL 0.5 MG/DL (0.1-1.0); CALCIUM 9.2 MG/DL (8.5-10.1); CREATININE SERUM 5.46 MG/DL (0.60-1.30); MAGNESIUM 1.8 MG/DL (1.6-2.4); POTASSIUM 4.1 MMOL/L (3.6-5.0); TOTAL PROTEIN 6.5 GM/DL (6.4-8.2)
[2022-02-06 10:10] LABS: BILIRUBIN,URINE NEGATIVE (NEGATIVE); CLARITY,URINE CLEAR; COLOR,URINE YELLOW; GLUCOSE, URINE (UA) NEGATIVE (NEGATIVE); KETONES,URINE NEGATIVE (NEGATIVE); LEUKOCYTE ESTERASE ,URINE NEGATIVE (NEGATIVE); NITRITE,URINE NEGATIVE (NEGATIVE); PH,URINE 5.5 (5-9); PROTEIN,URINE 3+ (NEGATIVE)
[2022-02-06 10:10] LABS: BAND NEUTROPHILS 10 %; BASOPHILS % (MANUAL) 0 %; EOSINOPHILS % (MANUAL) 0 %; LYMPHOCYTES % (MANUAL) 6 %; MONOCYTES % (MANUAL) 1 %; NEUTROPHILS % (MANUAL) 83 %; RBC MORPH NORMAL
--- NOTE | 2022-02-06 10:17 | Diagnostic Imaging Report ---
INDICATION: Cough. Frontal chest obtained at 10:16 a.m. compared to 12/21/2021. FINDINGS: There is cardiomegaly. There is no focal infiltrate or pneumothorax or pleural fluid. IMPRESSION: Cardiomegaly with no acute process in the chest. Dictated by: Dictated on workstation # [id number]
[2022-02-06 10:26] LABS: BACTERIA,URINE TRACE /HPF; RBC,URINE RARE /HPF; WBC,URINE 0-2 /HPF
[2022-02-06 10:27] LABS: AMORPHOUS SEDIMENT,UR MOD AMOR URATES /LPF
[2022-02-06 10:28] LABS: FREE T4 (FREE THYROXINE) 0.98 NG/DL (0.70-1.48)
--- NOTE | 2022-02-06 11:36 | Diagnostic Imaging Report ---
PROCEDURE: CT chest, abdomen, and pelvis without contrast. TECHNIQUE: Multiple contiguous axial images were obtained through the chest, abdomen, and pelvis without the use of intravenous contrast. Auto Exposure Controls were utilized during the CT exam to meet ALARA standards for radiation dose reduction. INDICATION: Fever and vomiting. COMPARISON: 02/17/2020 FINDINGS: CT chest: Evaluation lung pelayo demonstrates moderate patchy and confluent consolidative densities in the bilateral lower lobes. There is also extension of patchy infiltrate in the right upper lobe. No large effusion or pneumothorax is seen. Pulmonary nodule may be obscured. Cardia mediastinal structures show mild cardiomegaly. There is mild scattered calcified aortic and coronary atherosclerosis. No large pericardial effusion is seen. No pathologically enlarged or morphologically abnormal adenopathy is identified within the mediastinum, derrell, nor axilla. Osseous structures show age-related degenerative changes. No lytic or blastic osseous lesions are seen. CT ABDOMEN: Gallbladder is moderately distended. It measures 5.6 cm in diameter consistent with hydrops. Hyperdense material is seen within the gravity dependent portion of the gallbladder consistent with cholelithiasis. There is no pericholecystic free fluid. The liver, spleen, pancreas, adrenal glands, and kidneys have an unremarkable noncontrast CT appearance. There is no loculated fluid collection, free fluid, nor free air in the abdomen. No abnormal mesenteric or retroperitoneal adenopathy is seen. Osseous structures show no acute abnormalities. CT pelvis: Jay catheter is present within urinary bladder. Urinary bladder is decompressed and unopacified. There is no loculated fluid collection, free fluid or free air within the pelvis. No abnormal adenopathy is identified. Osseous structures show no acute abnormalities. IMPRESSION: 1. Bilateral pneumonia type infiltrate, right greater than left. Follow-up to resolution is recommended, as underlying pulmonary nodular OR mass cannot be excluded. 2. Gallbladder hydrops with cholelithiasis. If there is concern for acute cholecystitis, right upper quadrant abdominal sonogram versus HIDA scan is recommended. Dictated by: Dictated on workstation # [id number]
--- NOTE | 2022-02-06 11:49 | ED General ---
General Chief Complaint: Fever-Adult/Adol Stated Complaint: FEVER,N/V,SWOLLEN Nursing Triage Note: ARRIVED VIA WC TO ROOM 10 FROM [facility]. STATES SHE WOKE UP IN THE MIDDLE OF THE NIGHT WITH A FEVER N/V. PT RECIEVES DIALYSIS MWF. Source of Information: Patient, Family, Detention Records Exam Limitations: Other (Waxing and waning level of alertness) History of Present Illness Date Seen by Provider: Feb 06, 2022 Time Seen by Provider: 09:00 Initial Comments This 51-year-old woman with end-stage renal disease on dialysis presents to the emergency room by usp van with complaints of cough, shortness of breath, nausea, vomiting, abdominal pain, and fever up to 102 last night. Abdominal pain seems to have diminished and she is afebrile at present. She was to have dialysis this morning but is missing it to present to the emergency room. Her claim approver is Dr. Blake at [facility]. Patient is somewhat of a poor historian as she has waxing and waning level of alertness. She normally does not use supplemental oxygen but oxygen saturations dropped to 88% on room air. Nasal cannula was applied at 2 L/min. She is a resident of [facility]. Patient appears uncomfortable with intermittent moaning and groaning. Allergies and Home Medications Allergies Coded Allergies: metronidazole (Unverified Allergy, Mild, RASH, 10/30/19) MACULAR RASH amlodipine (Verified Allergy, Unknown, 10/25/19) clarithromycin (Verified Allergy, Unknown, 10/21/19) hydrocodone (Verified Allergy, Unknown, 10/21/19) Patient Home Medication List Home Medication List Reviewed: Yes Acetaminophen (Tylenol 8 Hour) 650 Mg Tablet.er, 650 MG PO Q6H PRN for PAIN-MILD (1-4) OR TEMPATURE, (Reported) Entered as Reported by: BOB ROCHE on 11/12/211451 Allopurinol (Allopurinol) 100 Mg Tablet, 100 MG PO DAILY, (Reported) Entered as Reported by: BOB ROCHE on 11/12/211451 Aspirin (Aspirin) 81 Mg Tab.chew, 81 MG PO DAILY, (Reported) Entered as Reported by: BOB ROCHE on 11/12/211451 Atorvastatin Calcium (Atorvastatin Calcium) 80 Mg Tablet, 80 MG PO HS, (Reported) Entered as Reported by: BOB ROCHE on 11/12/211451 Buspirone HCl (Buspirone HCl) 10 Mg Tablet, 10 MG PO 0900,1700, (Reported) Entered as Reported by: BOB ROCHE on 11/12/211451 Clopidogrel Bisulfate (Clopidogrel) 75 Mg Tablet, 75 MG PO DAILY, (Reported) Entered as Reported by: BOB ROCHE on 11/12/211451 Dicyclomine HCl (Dicyclomine HCl) 20 Mg Tablet, 20 MG PO ACHS PRN for CRAMPING, (Reported) Entered as Reported by: BOB ROCHE on 11/12/211451 Duloxetine HCl (Duloxetine HCl) 20 Mg Capsule.dr, 20 MG PO DAILY, (Reported) Entered as Reported by: BOB ROCHE on 11/12/211451 Duloxetine HCl (Duloxetine HCl) 60 Mg Capsule.dr, 60 MG PO DAILY, (Reported) Entered as Reported by: BOB ROCHE on 11/12/211451 Ergocalciferol (Vitamin D2) (Vitamin D2) 1,250 Mcg Capsule, 1,250 MCG PO FRI, (Reported) Entered as Reported by: BOB ROCHE on 11/12/211451 Furosemide (Furosemide) 40 Mg Tablet, 40 MG PO DAILY, (Reported) Entered as Reported by: BOB ROCHE on 11/12/211451 Gabapentin (Neurontin) 300 Mg Capsule, 300 MG PO 0900,1700, (Reported) Entered as Reported by: BOB ROCHE on 11/12/211451 Glucagon HCl (Glucagon Emergency Kit) 1 Mg Vial, 1 MG IJ UD PRN for BLOOD GLUCOSE LESS THAN 70, (Reported) Entered as Reported by: BOB ROCHE on 11/12/211451 Insulin Glargine-Yfgn (Insulin Glargine-Yfgn) 100 Unit/1 Ml Insuln.pen, 12 UNITS SC BID, (Reported) Entered as Reported by: BOB ROCHE on 11/12/211451 Insulin Lispro (Insulin Lispro Kwikpen U-100) 100 Unit/1 Ml Insuln.pen, 8 UNITS SC AC, (Reported) Entered as Reported by: BOB ROCHE on 11/12/211451 Lactobacillus Acidophilus (Acidophilus) 1 Each Capsule, 1 EACH PO DAILY, (R eported) Entered as Reported by: BOB ROCHE on 11/12/211451 Levothyroxine Sodium (Levothyroxine Sodium) 25 Mcg Tablet, 25 MCG PO DAILY, (Reported) Entered as Reported by: BOB ROCHE on 11/12/211451 Liraglutide (Victoza 3-Aravind) 0.6 Mg/0.1 Ml Pen.injctr, 0.6 MG SQ DAILY, (Reported) Entered as Reported by: BOB ROCHE on 11/12/21 150 Melatonin (Melatonin) 3 Mg Tablet, 3 MG PO HS PRN for INSOMNIA, (Reported) Entered as Reported by: BOB ROCHE on 11/12/211451 Metoprolol Succinate (Metoprolol Succinate) 200 Mg Tab.er.24h, 200 MG PO HS, (Reported) Entered as Reported by: BOB ROCHE on 11/12/211451 Montelukast Sodium (Montelukast Sodium) 10 Mg Tablet, 10 MG PO HS, (Reported) Entered as Reported by: BOB ROCHE on 11/12/211451 Multivitamin (Multivitamin) 1 Each Tablet, 1 EACH PO DAILY, (Reported) Entered as Reported by: BOB ROCHE on 11/12/211451 Nifedipine (Nifedipine ER) 30 Mg Tab.er.24, 30 MG PO DAILY, (Reported) Entered as Reported by: BOB ROCHE on 11/12/211451 Olopatadine HCl (Pataday) 5 Ml Drops, 1 DROP OU DAILY, (Reported) Entered as Reported by: BOB ROCHE on 11/12/211451 Hammond-3 Acid Ethyl Esters (Hammond-3 Acid Ethyl Esters) 1 Gm Capsule, 2 GM PO DAILY, (Reported) Entered as Reported by: BOB ROCHE on 11/12/211451 Oxycodone HCl/Acetaminophen (Oxycodone-Acetaminophen 5-325) 1 Each Tablet, 1 EA PO Q6H PRN for PAIN-MODERATE (5-7), (Reported) Entered as Reported by: BOB ROCHE on 11/12/211451 Polyethylene Glycol 3350 (Miralax) 17 Gm Powd.pack, 17 GM PO DAILY PRN for CONSTIPATION-2ND LINE, (Reported) Entered as Reported by: BOB ROCHE on 11/12/21 145 Sevelamer Carbonate (Sevelamer Carbonate) 800 Mg Tablet, 1,600 MG PO 1730, (Reported) Entered as Reported by: BOB ROCHE on 11/12/21 145 Sevelamer HCl (Sevelamer HCl) 800 Mg Tablet, 800 MG PO 0730,1230, (Reported) Entered as Reported by: BOB ROCHE on 11/12/211451 Trazodone HCl (Trazodone HCl) 50 Mg Tablet, 50-100 MG PO HS PRN for SLEEP, (Reported) Entered as Reported by: BOB ROCHE on 11/12/211451 Review of Systems Review of Systems Constitutional: see HPI EENTM: no symptoms reported Respiratory: see HPI Cardiovascular: no symptoms reported Gastrointestinal: see HPI Genitourinary: see HPI : No Musculoskeletal: no symptoms reported Skin: no symptoms reported Psychiatric/Neurological: See HPI Hematologic/Lymphatic: No Symptoms Reported Immunological/Allergic: no symptoms reported Past Zmytydt-Qqutwn-Oypqzf Hx Patient Social History Tobacco Use?: No Substance use?: No Alcohol Use?: No Immunizations Up To Date Tetanus Booster (TDap): Unknown Seasonal Allergies Seasonal Allergies: Yes Past Medical History Surgery/Hospitalization HX: DM, Stage IV renal failure, ABDOMINAL, TOE AMPUTATION, R FISTULA, C-SECT, ORTHO, TUBAL, HD MWF, NEUROPATHY, GERD, HYPOTHRYOIDISM, ANXIETY, Surgeries: Yes (LEFT TOE #2 AMPUTATED AND PARTIAL AMPUTATATION OF LEFT GREAT TOE; ) Abdominal, Amputation, Section, Eye Surgery, Orthopedic, Tubal Ligation, Vascular Surgery Respiratory: No Cardiac: Yes Chronic Edema/Swelling, Hypertension Neurological: Yes (PERIPHERAL NEUROPATHY) Neuropathy 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 Genitourinary: Yes (STAGE 3 RENAL FAILURE, NO DIALYSIS) Renal Failure Gastrointestinal: Yes (GASTROPARESIS) Gastroesophageal Reflux Musculoskeletal: Yes (LEFT 2ND TOE AMPUTATED AND PARTIAL LEFT GREAT TOE AMPUTATED) Amputee Endocrine: Yes (OBESITY) Diabetes, Insulin dep, Hypothyroidsim HEENT: Yes (RETINOPATHY) Macular Degeneration Cancer: No Psychosocial: Yes Anxiety Integumentary: Yes (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 4.8oz. 100.561724sl; 36.00 BMI Method:Stated General Appearance: No Apparent Distress, WD/WN, Other (Mildly ill appearing) HEENT: PERRL/EOMI, Normal ENT Inspection (Oropharynx dry), Other Neck: Normal Inspection Respiratory: No Accessory Muscle Use, No Respiratory Distress; No Crackles; Decreased Breath Sounds; No Wheezing Cardiovascular: Regular Rate, Rhythm, No Murmur, Other (Mild generalized edema) Gastrointestinal: Normal Bowel Sounds, Soft; No Distended; Tenderness (Mild, generalized) Extremity: Non Tender, Swelling (Mild) Neurologic/Psychiatric: Alert, No Motor/Sensory Deficits, Other (Waxing and waning level of alertness. Intermittently reliable historian.) Skin: Normal Color, Warm/Dry Focused Exam Lactate Level 02/06/22 08:55: Lactic Acid Level 1.54 Lactic Acid Level Laboratory Tests Test 02/06/22 08:55 Lactic Acid Level 1.54 MMOL/L (0.50-2.00) Progress/Results/Core Measures Suspected Sepsis SIRS Temperature: Pulse: 103 Respiratory Rate: 16 Laboratory Tests 02/06/22 08:55: White Blood Count 22.8H Blood Pressure 130 /67 Mean: 88 02/06/22 08:55: Lactic Acid Level 1.54 Laboratory Tests 02/06/22 08:55: Creatinine 5.46H, Platelet Count 221, Total Bilirubin 0.5 Results/Orders Lab Results Laboratory Tests Test 02/06/22 08:50 02/06/22 08:55 02/06/22 08:57 02/06/22 09:59 Range/Units Thyroid Stimulating Hormone (TSH) 2.58 0.35-4.94 UIU/ML Free Thyroxine 0.98 0.70-1.48 NG/DL White Blood Count 22.8 H 4.3-11.0 10^3/uL Red Blood Count 3.16 L 3.80-5.11 10^6/uL Hemoglobin 9.5 L 11.5-16.0 g/dL Hematocrit 30 L 35-52 % Mean Corpuscular Volume 94 80-99 fL Mean Corpuscular Hemoglobin 30 25-34 pg Mean Corpuscular Hemoglobin Concent 32 32-36 g/dL Red Cell Distribution Width 15.0 H 10.0-14.5 % Platelet Count 221 130-400 10^3/uL Mean Platelet Volume 12.1 9.0-12.2 fL Immature Granulocyte % (Auto) 1 % Neutrophils (%) (Auto) 89 H 42-75 % Lymphocytes (%) (Auto) 7 L 12-44 % Monocytes (%) (Auto) 2 0-12 % Eosinophils (%) (Auto) 0 0-10 % Basophils (%) (Auto) 0 0-10 % Neutrophils # (Auto) 20.4 H 1.8-7.8 10^3/uL Lymphocytes # (Auto) 1.7 1.0-4.0 10^3/uL Monocytes # (Auto) 0.5 0.0-1.0 10^3/uL Eosinophils # (Auto) 0.0 0.0-0.3 10^3/uL Basophils # (Auto) 0.1 0.0-0.1 10^3/uL Immature Granulocyte # (Auto) 0.2 H 0.0-0.1 10^3/uL Neutrophils % (Manual) 83 % Lymphocytes % (Manual) 6 % Monocytes % (Manual) 1 % Eosinophils % (Manual) 0 % Basophils % (Manual) 0 % Band Neutrophils 10 % Blood Morphology Comment NORMAL Sodium Level 136 135-145 MMOL/L Potassium Level 4.1 3.6-5.0 MMOL/L Chloride Level 98 98-107 MMOL/L Carbon Dioxide Level 21 21-32 MMOL/L Anion Gap 17 H 5-14 MMOL/L Blood Urea Nitrogen 42 H 7-18 MG/DL Creatinine 5.46 H 0.60-1.30 MG/DL Estimat Glomerular Filtration Rate 9 BUN/Creatinine Ratio 8 Glucose Level 96 70-105 MG/DL Lactic Acid Level 1.54 0.50-2.00 MMOL/L Calcium Level 9.2 8.5-10.1 MG/DL Corrected Calcium 9.5 8.5-10.1 MG/DL Magnesium Level 1.8 1.6-2.4 MG/DL Total Bilirubin 0.5 0.1-1.0 MG/DL Aspartate Amino Transf (AST/SGOT) 16 5-34 U/L Alanine Aminotransferase (ALT/SGPT) 20 0-55 U/L Alkaline Phosphatase 23 L 40-136 U/L C-Reactive Protein High Sensitivity 4.80 H 0.00-0.50 MG/DL Total Protein 6.5 6.4-8.2 GM/DL Albumin 3.6 3.2-4.5 GM/DL Influenza Type A (RT-PCR) Not Detected Not Detecte Influenza Type B (RT-PCR) Not Detected Not Detecte SARS-CoV-2 RNA (RT-PCR) Not Detected Not Detecte Glucometer 102 70-110 MG/DL Test 02/06/22 10:04 02/06/22 16:20 Range/Units Urine Color YELLOW Urine Clarity CLEAR Urine pH 5.5 5-9 Urine Specific [place] 1.025 H 1.016-1.022 Urine Protein 3+ H NEGATIVE Urine Glucose (UA) NEGATIVE NEGATIVE Urine Ketones NEGATIVE NEGATIVE Urine Nitrite NEGATIVE NEGATIVE Urine Bilirubin NEGATIVE NEGATIVE Urine Urobilinogen 0.2 < = 1.0 MG/DL Urine Leukocyte Esterase NEGATIVE NEGATIVE Urine RBC (Auto) 1+ H NEGATIVE Urine RBC RARE /HPF Urine WBC 0-2 /HPF Urine Crystals PRESENT H /LPF Urine Amorphous Sediment MOD SUDHIR URATES H /LPF Urine Bacteria TRACE /HPF Urine Casts NONE /LPF Urine Mucus NEGATIVE /LPF Urine Culture Indicated NO Glucometer 78 70-110 MG/DL My Orders Orders - MEETA HARRISON MD Covid 19 Inhouse Test (02/06/22 09:00) Influenza A And B By Pcr (02/06/22 09:00) Ua Culture If Indicated (02/06/22 09:01) Cbc With Automated Diff (02/06/22 09:38) Comprehensive Metabolic Panel (02/06/22 09:38) Hs C Reactive Protein (02/06/22 09:38) Magnesium (02/06/22 09:38) Ed Iv/Invasive Line Start (02/06/22 09:38) Thyroid Stimulating Hormone (02/06/22 09:51) Free T4 (Free Thyroxine) (02/06/22 09:51) Manual Differential (02/06/22 08:55) Chest 1 View, Ap/Pa Only (02/06/22 10:02) Ct Chest/Abdomen/Pelvis Wo (02/06/22 10:30) Blood Culture (02/06/22 11:49) Vital Signs Adult Sepsis Patie Q15M (02/06/22 11:49) O2 (02/06/22 11:49) Remove Rings In Anticipation O (02/06/22 11:49) Lactic Acid Analyzer (02/06/22 11:49) Piperacillin Sodium/Tazobactam (Zosyn Vi (02/06/22 12:00) Medications Given in ED Current Medications Medications Dose Ordered Sig/Arlet Route Start Time Stop Time Status Last Admin Dose Admin Piperacillin Sod/ Tazobactam Sod 2.25 gm/Sodium Chloride 100 ml @ 200 mls/hr ONCE ONCE IV 02/06/22 12:00 02/06/22 12:29 DC 02/06/22 13:29 200 MLS/HR Vital Signs/I&O 02/06/22 02/06/22 02/06/22 09:00 09:30 16:45 Temp 37.1 Pulse 103 105 Resp 16 17 B/P (MAP) 130/67 (88) 143/68 Pulse Ox 93 89 99 O2 Delivery Room Air Nasal Cannula O2 Flow Rate 2.00 2.00 Capillary Refill : Less Than 3 Seconds Blood Pressure Mean: 88 Point of Care Testing Finger Stick Blood Glucose: 106 Blood Glucose Action Taken: rn notified Progress Note #1: Time: 12:06 Progress Note Flu and COVID testing were negative. Patient was found to have a mildly elevated CRP and a higher leukocytosis than normal. No source of infection was identified initially. Work-up was continued with CT of the chest, abdomen and pelvis to further explore her hypoxia, fever, and abdominal symptoms. Bilateral pneumonia was identified. There was also suspicion of gallbladder distention and cholelithiasis. Blood cultures and lactic acid are being obtained. Initial treatment will be with Zosyn 2.2 g. Progress Note #2: Time: 12:34 Progress Note Transfer to [facility] was accepted by the hospitalist. They are awaiting discharges for bed availability. Images were clouded to [place]. Diagnostic Imaging Diagonstic Imaging: Xray Plain Films/CT/US/NM/MRI: chest Comments Chest x-ray viewed by me and report reviewed. See report below: NAME: [facility] REC#: [id number] PT STATUS: REG ER : 1970 PHYSICIAN: MEETA HARRISON MD ADMIT DATE: 02/06/22/ER Draft Date of Exam:02/06/22 CHEST 1 VIEW, AP/PA ONLY INDICATION: Cough. Frontal chest obtained at 10:16 a.m. compared to 12/21/2021. FINDINGS: There is cardiomegaly. There is no focal infiltrate or pneumothorax or pleural fluid. IMPRESSION: Cardiomegaly with no acute process in the chest. Dictated on workstation # [id number] Dict: 02/06/22 1014 Trans: 02/06/22 1016 [id number] Interpreted by: KATHERIN OJEDA MD Diagonstic Imaging: CT Plain Films/CT/US/NM/MRI: chest, abdomen, pelvis Comments CT chest, abdomen and pelvis viewed by me and report reviewed. See report below: NAME: [facility] REC#: [id number] PT STATUS: REG ER : 1970 PHYSICIAN: MEETA HARRISON MD ADMIT DATE: 02/06/22/ER Draft Date of Exam:02/06/22 CT CHEST/ABDOMEN/PELVIS WO PROCEDURE: CT chest, abdomen, and pelvis without contrast. TECHNIQUE: Multiple contiguous axial images were obtained through the chest, abdomen, and pelvis without the use of intravenous contrast. Auto Exposure Controls were utilized during the CT exam to meet ALARA standards for radiation dose reduction. INDICATION: Fever and vomiting. COMPARISON: 02/17/2020 FINDINGS: CT chest: Evaluation lung pelayo demonstrates moderate patchy and confluent consolidative densities in the bilateral lower lobes. There is also extension of patchy infiltrate in the right upper lobe. No large effusion or pneumothorax is seen. Pulmonary nodule may be obscured. Cardia mediastinal structures show mild cardiomegaly. There is mild scattered calcified aortic and coronary atherosclerosis. No large pericardial effusion is seen. No pathologically enlarged or morphologically abnormal adenopathy is identified within the mediastinum, derrell, nor axilla. Osseous structures show age-related degenerative changes. No lytic or blastic osseous lesions are seen. CT ABDOMEN: Gallbladder is moderately distended. It measures 5.6 cm in diameter consistent with hydrops. Hyperdense material is seen within the gravity dependent portion of the gallbladder consistent with cholelithiasis. There is no pericholecystic free fluid. The liver, spleen, pancreas, adrenal glands, and kidneys have an unremarkable noncontrast CT appearance. There is no loculated fluid collection, free fluid, nor free air in the abdomen. No abnormal mesenteric or retroperitoneal adenopathy is seen. Osseous structures show no acute abnormalities. CT pelvis: Jay catheter is present within urinary bladder. Urinary bladder is decompressed and unopacified. There is no loculated fluid collection, free fluid or free air within the pelvis. No abnormal adenopathy is identified. Osseous structures show no acute abnormalities. IMPRESSION: 1. Bilateral pneumonia type infiltrate, right greater than left. Follow-up to resolution is recommended, as underlying pulmonary nodular OR mass cannot be excluded. 2. Gallbladder hydrops with cholelithiasis. If there is concern for acute cholecystitis, right upper quadrant abdominal sonogram versus HIDA scan is recommended. Dictated on workstation # [id number] Dict: 02/06/22 1123 Trans: 02/06/22 1136 [facility] [id number] Interpreted by: MERRY BLANTON MD Departure Impression Primary Impression: Bilateral pneumonia Qualified Codes: J18.9 - Pneumonia, unspecified organism Additional Impressions: Hypoxia Nausea & vomiting Qualified Codes: R11.2 - Nausea with vomiting, unspecified Abdominal pain Qualified Codes: R10.84 - Generalized abdominal pain End stage renal failure on dialysis Cholelithiasis Qualified Codes: K80.20 - Calculus of gallbladder without cholecystitis without obstruction Disposition: XF SHT-TRM HOSP Condition: Stable Transfer Transfer Reason: Exceeds level of care Time Spoke to Accepting Phy: 12:30 Transfer Progress Notes Transfer accepted by Dr. Mendez, hospitalist. Transfer Time: 17:04 Transfer Facility: [facility] Method of Transfer: EMS Departure-Patient Inst. [place] [facility] [place] Primary Care Physician PREET MARES APRN (Family) Primary Care Physician Copy Copies To 1: MARCELO JUNE JOSHUA T MD Feb 06, 2022 11:48
[2022-02-06] MEDS ORDERED: PIPERACILLIN SODIUM/TAZOBACTAM 2.25 GM in NS (IVPB) 100 ML IV ONE (12:00)
[2022-02-06 16:45] VITALS: BP 143/68
== END 2022-02-06 17:04 | disposition short-term general hospital (02) ==
LOC: EDUNIT# 08:40 → ER 08:42
DX: I12.0 Hypertensive chronic kidney disease with stage 5 chronic kidney disease or end stage renal disease (principal); N18.6 End stage renal disease; E11.22 Type 2 diabetes mellitus with diabetic chronic kidney disease; J18.9 Pneumonia, unspecified organism; K80.20 Calculus of gallbladder without cholecystitis without obstruction; R79.82 Elevated C-reactive protein (CRP); D72.829 Elevated white blood cell count, unspecified; E11.42 Type 2 diabetes mellitus with diabetic polyneuropathy; E66.9 Obesity, unspecified; Z99.2 Dependence on renal dialysis; Z20.822 Contact with and (suspected) exposure to COVID-19; Z79.4 Long term (current) use of insulin
CPT/HCPCS: 36415; 51702; 71045; 71250; 74176; 80053; 81000; 82947; 83605; 83735; 84439; 84443; 85007; 85027; 86141; 87040; 87636

== ENCOUNTER 2022-10-03 03:43 | Emergency (ER) | payer MEDICAID ==
[~2022-10-03] VITALS: Ht 165.1 cm; Wt 100.0 kg
--- NOTE | 2022-10-03 04:04 | ED General ---
General Stated Complaint: KIDNEY DISEASE Source of Information: Patient (ORSLYN LASSITER DO) History of Present Illness Date Seen by Provider: Oct 03, 2022 Time Seen by Provider: 03:44 Initial Comments PT ARRIVES VIA EMS PT IS A RESIDENT AT [facility], BUT WAS AT HER DAUGHTER'S HOUSE TONIGHT FOR UNDETERMINED REASONS, WHEN EMS PICKED HER UP. PT WITH A MULTITUDE OF COMPLAINTS AND IS A DIFFICULT HISTORIAN PT STATES "MY SIDE IS KILLING ME" STATES SHE IS HAVING PAIN IN HER RIGHT SIDE FIRST STATES THAT HER PAIN BEGAN LAST NIGHT, THEN STATES IT BEGAN 3 HOURS AGO SHE HAS NOT TAKEN ANYTHING FOR PAIN AT ANY TIME C/O NAUSEA, AND HAS VOMITED UNKNOWN NUMBER OF TIMES--INITIALLY STATED THAT IT JUST STARTED 3 HOURS AGO, BUT THEN STATES "I VOMITED YESTERDAY AT THE FACILITY WHERE I LIVE, THEN I VOMITED AT DIALYSIS, AND THEN I VOMITED AT MY DAUGHTER'S HOUSE" NO DIARRHEA, HAS NO IDEA WHEN HER LAST BM WAS. STATES SHE DID NOT HAVE ONE YESTERDAY HAS HAD SUBJECTIVE FEVER TONIGHT SHE HAS HAD A COUGH FOR A FEW DAYS C/O SHORTNESS OF BREATH PT DOES STILL MAKE URINE SHE DENIES ANY PAIN OR DIFFICULTY URINATING ON ARRIVAL, PT'S MAIN CONCERN IS WANTING CHAPSTICK, STATES "I NEED CHAPSTICK--MY LIPS ARE SO CHAPPED" --THIS IS A CHRONIC ISSUE WITH PT--ALWAYS WANTING CHAPSTICK AND FIXATED ON CHAPSTICK. ALSO REPEATEDLY WANTING WATER STATES SHE HAS NOT EATEN TODAY, BUT HAS BEEN DRINKING WATER PT HAS HAD COVID VACCINE X 2--OVER A YEAR AGO NO FLU VACCINE. PCP: [facility] (ROSLYN LASSITER ) Allergies and Home Medications Allergies Coded Allergies: metronidazole (Unverified Allergy, Mild, RASH, 10/30/19) MACULAR RASH amlodipine (Verified Allergy, Unknown, 10/25/19) clarithromycin (Verified Allergy, Unknown, 10/21/19) hydrocodone (Verified Allergy, Unknown, 10/21/19) Patient Home Medication List Home Medication List Reviewed: Yes (RONNY CHAVEZ DO) Acetaminophen (Tylenol 8 Hour) 650 Mg Tablet.er, 650 MG PO Q6H PRN for PAIN-MILD (1-4) OR TEMPATURE, (Reported) Entered as Reported by: BOB ROCHE on 11/12/211451 Allopurinol (Allopurinol) 100 Mg Tablet, 100 MG PO DAILY, (Reported) Entered as Reported by: BOB ROCHE on 11/12/211451 Aspirin (Aspirin) 81 Mg Tab.chew, 81 MG PO DAILY, (Reported) Entered as Reported by: BOB ROCHE on 11/12/211451 Atorvastatin Calcium (Atorvastatin Calcium) 80 Mg Tablet, 80 MG PO HS, (Reported) Entered as Reported by: BOB ROCHE on 11/12/211451 Buspirone HCl (Buspirone HCl) 10 Mg Tablet, 10 MG PO 0900,1700, (Reported) Entered as Reported by: BOB ROCHE on 11/12/211451 Clopidogrel Bisulfate (Clopidogrel) 75 Mg Tablet, 75 MG PO DAILY, (Reported) Entered as Reported by: BOB ROCHE on 11/12/211451 Dicyclomine HCl (Dicyclomine HCl) 20 Mg Tablet, 20 MG PO ACHS PRN for CRAMPING, (Reported) Entered as Reported by: BOB ROCHE on 11/12/211451 Duloxetine HCl (Duloxetine HCl) 20 Mg Capsule.dr, 20 MG PO DAILY, (Reported) Entered as Reported by: BOB ROCHE on 11/12/211451 Duloxetine HCl (Duloxetine HCl) 60 Mg Capsule.dr, 60 MG PO DAILY, (Reported) Entered as Reported by: BOB ROCHE on 11/12/211451 Ergocalciferol (Vitamin D2) (Vitamin D2) 1,250 Mcg Capsule, 1,250 MCG PO FRI, (Reported) Entered as Reported by: BOB ROCHE on 11/12/211451 Furosemide (Furosemide) 40 Mg Tablet, 40 MG PO DAILY, (Reported) Entered as Reported by: BOB ROCHE on 11/12/211451 Gabapentin (Neurontin) 300 Mg Capsule, 300 MG PO 0900,1700, (Reported) Entered as Reported by: BOB ROCHE on 11/12/211451 Glucagon HCl (Glucagon Emergency Kit) 1 Mg Vial, 1 MG IJ UD PRN for BLOOD GLUCOSE LESS THAN 70, (Reported) Entered as Reported by: BOB ROCHE on 11/12/211451 Insulin Glargine-Yfgn (Insulin Glargine-Yfgn) 100 Unit/1 Ml Insuln.pen, 12 UNITS SC BID, (Reported) Entered as Reported by: BOB ROCHE on 11/12/211451 Insulin Lispro (Insulin Lispro Kwikpen U-100) 100 Unit/1 Ml Insuln.pen, 8 UNITS SC AC, (Reported) Entered as Reported by: BOB ROCHE on 11/12/211451 Lactobacillus Acidophilus (Acidophilus) 1 Each Capsule, 1 EACH PO DAILY, (Reported) Entered as Reported by: BOB ROCHE on 11/12/211451 Levothyroxine Sodium (Levothyroxine Sodium) 25 Mcg Tablet, 25 MCG PO DAILY, (Reported) Entered as Reported by: BOB ROCHE on 11/12/211451 Liraglutide (Victoza 3-Aravind) 0.6 Mg/0.1 Ml Pen.injctr, 0.6 MG SQ DAILY, (Reported) Entered as Reported by: BOB ROCHE on 11/12/21 150 Melatonin (Melatonin) 3 Mg Tablet, 3 MG PO HS PRN for INSOMNIA, (Reported) Entered as Reported by: BOB ROCHE on 11/12/211451 Metoprolol Succinate (Metoprolol Succinate) 200 Mg Tab.er.24h, 200 MG PO HS, (Reported) Entered as Reported by: BOB ROCHE on 11/12/211451 Montelukast Sodium (Montelukast Sodium) 10 Mg Tablet, 10 MG PO HS, (Reported) Entered as Reported by: BOB ROCHE on 11/12/211451 Multivitamin (Multivitamin) 1 Each Tablet, 1 EACH PO DAILY, (Reported) Entered as Reported by: BOB ROCHE on 11/12/211451 Nifedipine (Nifedipine ER) 30 Mg Tab.er.24, 30 MG PO DAILY, (Reported) Entered as Reported by: BOB ROCHE on 11/12/211451 Olopatadine HCl (Pataday) 5 Ml Drops, 1 DROP OU DAILY, (Reported) Entered as Reported by: BOB ROCHE on 11/12/211451 Chat[place]-3 Acid Ethyl Esters (Chatsworth-3 Acid Ethyl Esters) 1 Gm Capsule, 2 GM PO DAILY, (Reported) Entered as Reported by: BOB ROCHE on 11/12/211451 Oxycodone HCl/Acetaminophen (Oxycodone-Acetaminophen 5-325) 1 Each Tablet, 1 EA PO Q6H PRN for PAIN-MODERATE (5-7), (Reported) Entered as Reported by: BOB ROCHE on 11/12/211451 Polyethylene Glycol 3350 (Miralax) 17 Gm Powd.pack, 17 GM PO DAILY PRN for CONSTIPATION-2ND LINE, (Reported) Entered as Reported by: BOB ROCHE on 11/12/211451 Sevelamer Carbonate (Sevelamer Carbonate) 800 Mg Tablet, 1,600 MG PO 1730, (Reported) Entered as Reported by: BOB ROCHE on 11/12/211451 Sevelamer HCl (Sevelamer HCl) 800 Mg Tablet, 800 MG PO 0730,1230, (Reported) Entered as Reported by: BOB ROCHE on 11/12/211451 Trazodone HCl (Trazodone HCl) 50 Mg Tablet, 50-100 MG PO HS PRN for SLEEP, (Reported) Entered as Reported by: BOB ROCHE on 11/12/211451 Review of Systems Review of Systems Constitutional: see HPI, fever EENTM: see HPI Respiratory: see HPI, cough, short of breath Cardiovascular: no symptoms reported; No chest pain Gastrointestinal: see HPI, abdominal pain, constipation; No diarrhea; nausea, vomiting Genitourinary: no symptoms reported Musculoskeletal: see HPI, back pain Skin: no symptoms reported Psychiatric/Neurological: Anxiety Hematologic/Lymphatic: No Symptoms Reported Immunological/Allergic: no symptoms reported (ROSLYN LASSITER DO) Past Nqecjsv-Oxfpbp-Tswelk Hx Immunizations Up To Date Tetanus Booster (TDap): Unknown (ROSLYN LASSITER DO) Seasonal Allergies Seasonal Allergies: Yes (ROSLYN LASSITER DO) Past Medical History Surgery/Hospitalization HX: DM, Stage IV renal failure, ABDOMINAL, TOE AMPUTATION, R FISTULA, C-SECT, ORTHO, TUBAL, HD MWF, NEUROPATHY, GERD, HYPOTHRYOIDISM, ANXIETY, Surgeries: Yes (LEFT TOE #2 AMPUTATED AND PARTIAL AMPUTATATION OF LEFT GREAT TOE; ) Abdominal, Amputation, Section, Eye Surgery, Orthopedic, Tubal Ligation, Vascular Surgery Respiratory: No Cardiac: Yes Chronic Edema/Swelling, Hypertension Neurological: Yes (PERIPHERAL NEUROPATHY) Neuropathy 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 Genitourinary: Yes (END STAGE RENAL FAILURE-NOW ON DIALYSIS) Bladder Infection, Renal Failure, Dialysis Gastrointestinal: Yes (GASTROPARESIS) Gastroesophageal Reflux Musculoskeletal: Yes (LEFT 2ND TOE AMPUTATED AND PARTIAL LEFT GREAT TOE AMPUTATED) Amputee Endocrine: Yes (OBESITY) Diabetes, Insulin dep, Hypothyroidsim HEENT: Yes (RETINOPATHY) Macular Degeneration Cancer: No Psychosocial: Yes Anxiety Integumentary: Yes (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) Blood Disorders: Yes (ANEMIA) (ROSLYN LASSITER DO) Family Medical History Asthma G8 BROTHER G8 BROTHER Cardiovascular disease 19 FATHER G8 BROTHER Diabetes mellitus 19 MOTHER G8 BROTHER G8 BROTHER Kidney disease G8 BROTHER Myocardial infarction 19 FATHER Respiratory disorder G8 BROTHER G8 BROTHER No Pertinent Family Hx (ROSLYN LASSITER DO) Physical Exam Vital Signs Vital Signs - First Documented 10/03/22 10/03/22 03:50 04:30 Temp 37.4 Pulse 104 Resp 16 B/P (MAP) 122/74 (90) Pulse Ox 95 O2 Delivery Nasal Cannula O2 Flow Rate 2.00 (RONNY CHAVEZ DO) Vital Signs Capillary Refill : (ROSLYN LASSITER DO) Height, Weight, BMI Height: 5'5.00" Weight: 221lbs. 4.8oz. 100.495239ax; 36.00 BMI Method:Stated General Appearance: No Apparent Distress, WD/WN, Other (OBESE, UNKEMPT, CONSTANT MOVMENTS OF ENTIRE BODY, CONSTANT LIP LICKING AND MOUTH MOVEMENTS, CONSTANT WHIMPERING AND MAKING GUTTERAL NOISES AND CONSTANT THROAT CLEARING. ) HEENT: Other (ORAL MUCOSA IS VERY DRY AND LIPS ARE CHAPPED AND PEELING) Neck: Normal Inspection Respiratory: Normal Breath Sounds, No Accessory Muscle Use, No Respiratory Distress Cardiovascular: No Edema, No Murmur, Tachycardia (110'S) Gastrointestinal: Soft, Tenderness (DIFFUSE RIGHT SIDED ABDOMINAL AND RIGHT FLANK PAIN ) Back: No CVA Tenderness Extremity: Normal Capillary Refill, Normal Inspection, Normal Range of Motion, Non Tender, No Calf Tenderness, No Pedal Edema Neurologic/Psychiatric: Alert, Oriented x3, No Motor/Sensory Deficits, supervisor insulation II- XII Norm as Tested, Other (ANXIOUS) Skin: Normal Color, Warm/Dry; No Rash (ROSLYN LASSITER DO) Focused Exam Sepsis Stage: Sepsis Possible Source: Unknown (ROSLYN LASSITER DO) Lactate Level 10/03/22 05:05: Lactic Acid Level 1.44 (RONNY CHAVEZ DO) Time of Focused Exam: 05:00 Respiratory: Normal Breath Sounds, No Accessory Muscle Use, No Respiratory Distress Cardiovascular: No Edema, No JVD, No Murmur, Normal Peripheral Pulses, Tachycardia (110'S) Capillary Refill: Less Than 3 Seconds (ROSLYN LASSITER ) Lactic Acid Level Laboratory Tests Test 10/03/22 05:05 Lactic Acid Level 1.44 MMOL/L (0.50-2.00) (SCOTT,RONNY Beck DO) Within 3hrs of presentation: Admin fluids, Admin ABX, Blood cultures prior to ABX's, Focus exam, Lactate level (SRAVANIROSLYN Loera DO) Progress/Results/Core Measures Suspected Sepsis SIRS Temperature: Pulse: Respiratory Rate: Laboratory Tests 10/03/22 03:50: White Blood Count 34.5*H Blood Pressure / Mean: 10/03/22 05:05: Lactic Acid Level 1.44 Laboratory Tests 10/03/22 03:50: Creatinine 4.61H, INR Comment 1.1, Platelet Count 174, Total Bilirubin 0.9 (ROSLYN LASSITER DO) Results/Orders Lab Results Laboratory Tests Test 10/03/22 03:50 10/03/22 04:00 10/03/22 05:05 10/03/22 05:56 Range/Units White Blood Count 34.5 *H 4.3-11.0 10^3/uL Red Blood Count 3.42 L 3.80-5.11 10^6/uL Hemoglobin 11.4 L 11.5-16.0 g/dL Hematocrit 34 L 35-52 % Mean Corpuscular Volume 99 80-99 fL Mean Corpuscular Hemoglobin 33 25-34 pg Mean Corpuscular Hemoglobin Concent 34 32-36 g/dL Red Cell Distribution Width 11.9 10.0-14.5 % Platelet Count 174 130-400 10^3/uL Mean Platelet Volume 11.5 9.0-12.2 fL Immature Granulocyte % (Auto) 1 % Neutrophils (%) (Auto) 92 H 42-75 % Lymphocytes (%) (Auto) 5 L 12-44 % Monocytes (%) (Auto) 3 0-12 % Eosinophils (%) (Auto) 0 0-10 % Basophils (%) (Auto) 0 0-10 % Neutrophils # (Auto) 31.5 H 1.8-7.8 10^3/uL Lymphocytes # (Auto) 1.6 1.0-4.0 10^3/uL Monocytes # (Auto) 0.9 0.0-1.0 10^3/uL Eosinophils # (Auto) 0.0 0.0-0.3 10^3/uL Basophils # (Auto) 0.1 0.0-0.1 10^3/uL Immature Granulocyte # (Auto) 0.4 H 0.0-0.1 10^3/uL Neutrophils % (Manual) 82 % Lymphocytes % (Manual) 0 % Monocytes % (Manual) 1 % Eosinophils % (Manual) 0 % Basophils % (Manual) 0 % Band Neutrophils 17 % Toxic Granulation 1+ Prothrombin Time 14.8 H 12.2-14.7 SEC INR Comment 1.1 0.8-1.4 Activated Partial Thromboplast Time 36 H 24-35 SEC Sodium Level 132 L 135-145 MMOL/L Potassium Level 4.3 3.6-5.0 MMOL/L Chloride Level 91 L 98-107 MMOL/L Carbon Dioxide Level 22 21-32 MMOL/L Anion Gap 19 H 5-14 MMOL/L Blood Urea Nitrogen 28 H 7-18 MG/DL Creatinine 4.61 H 0.60-1.30 MG/DL Estimat Glomerular Filtration Rate 11 BUN/Creatinine Ratio 6 Glucose Level 178 H 70-105 MG/DL Calcium Level 9.6 8.5-10.1 MG/DL Corrected Calcium 9.8 8.5-10.1 MG/DL Magnesium Level 1.8 1.6-2.4 MG/DL Total Bilirubin 0.9 0.1-1.0 MG/DL Aspartate Amino Transf (AST/SGOT) 17 5-34 U/L Alanine Aminotransferase (ALT/SGPT) 17 0-55 U/L Alkaline Phosphatase 33 L 40-136 U/L Total Protein 7.5 6.4-8.2 GM/DL Albumin 3.8 3.2-4.5 GM/DL Amylase Level 35 25-125 U/L Lipase 9 8-78 U/L Beta-Hydroxybutyrate (Chem panel) 1.22 H 0.00-0.27 MMOL/L Acetaminophen Level < 10 L 10-30 UG/ML Serum Alcohol < 10 <10 MG/DL Influenza Type A (RT-PCR) Not Detected Not Detecte Influenza Type B (RT-PCR) Not Detected Not Detecte SARS-CoV-2 RNA (RT-PCR) Not Detected Not Detecte Urine Color YELLOW Urine Clarity CLEAR Urine pH 6.5 5-9 Urine Specific Morgan 1.020 1.016-1.022 Urine Protein 3+ H NEGATIVE Urine Glucose (UA) NEGATIVE NEGATIVE Urine Ketones TRACE H NEGATIVE Urine Nitrite NEGATIVE NEGATIVE Urine Bilirubin 1+ H NEGATIVE Urine Urobilinogen 0.2 < = 1.0 MG/DL Urine Leukocyte Esterase NEGATIVE NEGATIVE Urine RBC (Auto) 1+ H NEGATIVE Urine RBC 0-2 /HPF Urine WBC 0-2 /HPF Urine Squamous Epithelial Cells 0-2 /HPF Urine Crystals NONE /LPF Urine Bacteria TRACE /HPF Urine Casts NONE /LPF Urine Mucus MODERATE H /LPF Urine Culture Indicated NO Urine Opiates Screen NEGATIVE NEGATIVE Urine Oxycodone Screen POSITIVE H NEGATIVE Urine Methadone Screen NEGATIVE NEGATIVE Urine Propoxyphene Screen NEGATIVE NEGATIVE Urine Barbiturates Screen NEGATIVE NEGATIVE Ur Tricyclic Antidepressants Screen NEGATIVE NEGATIVE Urine Phencyclidine Screen NEGATIVE NEGATIVE Urine Amphetamines Screen NEGATIVE NEGATIVE Urine Methamphetamines Screen NEGATIVE NEGATIVE Urine Benzodiazepines Screen NEGATIVE NEGATIVE Urine Cocaine Screen NEGATIVE NEGATIVE Urine Cannabinoids Screen NEGATIVE NEGATIVE Lactic Acid Level 1.44 0.50-2.00 MMOL/L Mean Blood Glucose 148 H <=126 mg/dL Hemoglobin A1c 6.8 H 4.0-5.6 % (RONNY CHAVEZ DO) Micro Results Microbiology 10/03/22 Blood Culture - Preliminary, Resulted No growth 10/03/22 Blood Culture - Preliminary, Resulted No growth 10/03/22 Urine Culture - Final, Complete NO GROWTH (RONNY CHAVEZ DO) Medications Given in ED (RONNY CHAVEZ DO) Vital Signs/I&O 10/03/22 10/03/22 10/03/22 10/03/22 03:50 04:30 05:44 10:29 Temp 37.4 39.4 Pulse 104 93 Resp 16 20 B/P (MAP) 122/74 (90) 134/78 Pulse Ox 95 96 97 O2 Delivery Nasal Cannula Nasal Cannula O2 Flow Rate 2.00 2.00 (RONNY CHAVEZ DO) Vital Signs/I&O Capillary Refill : (ROSLYN LASSITER DO) Progress Note : Progress Note PPE WORN COVID AND FLU TESTING DONE SEPSIS PROTOCOL INITIATED GIVEN: -IV FLUIDS--FLUIDS GIVEN CAUTIOUSLY, PT IS DIALYSIS PATIENT. -IV ANTIBIOTICS -TYLENOL--TEMP SPIKED TO 103 DURING ER STAY. -ZOFRAN NO COUGH NO DYSPNEA NO HYPOXIA NO COMPLAINTS OF ABDOMINAL PAIN FOR REMAINDER OF ER STAY NO HYPOTENSION REPEATEDLY WANTING WATER AND CHAPSTICK. THEN WANTING MECLIZINE--STATES SHE IS NOT DIZZY OR NAUSEATED, JUST WANTS MECLIZINE 0600--CARE TURNED OVER TO DR. CHAVEZ, CT PENDING. ANTICIPATE THAT PT WILL NEED TO BE TRANSFERRED DUE TO SEPSIS AND PT IS A DIALYSIS PT AND THEREFORE CANNOT KEEP HER HERE. WEATHER IS EXTREMELY BAD AT THIS TIME--FREEZING RAIN, SNOW, ETC. AND TRANSPORTATION MAY BE AN ISSUE. (ROSLYN LASSITER DO) Diagnostic Imaging Comments CXR--NO ACUTE PROCESS, PENDING RADIOLOGIST REVIEW CT CHEST/ABDOMEN/PELVIS--- Reviewed: Reviewed by Me (ROSLYN LASSITER DO) Departure Communication (Admissions) Initially called [facility] in [place]. They are at capacity and cannot accept the patient. Call [facility] in [place]. They called back at 17 and they excepted patient. I spoke with the PA on-call, Vought, and he accepts on behalf of Dr. Alexander. The patient remains mildly tachycardic in accordance with his fever. We will only source infection at this time but she does have significant leukocytosis. Glucose slightly elevated but no evidence for DKA. COVID and flu are negative. CT of her chest abdomen pelvis were also negative for any acute infectious findings. I did not think of possible ischemic bowel as her pain does seem out of proportion however it is focal on the right side which is a normal lactic acid and so I think this is very unlikely at this time. The patient is pending bed assignment and we will arrange for transfer thereafter. (RONNY CHAVEZ DO) Impression Primary Impression: Sepsis Qualified Codes: A41.9 - Sepsis, unspecified organism Additional Impressions: End stage renal failure on dialysis Diabetes mellitus, type 2 Qualified Codes: E11.69 - Type 2 diabetes mellitus with other specified complication; Z79.4 - exterminator termite (current) use of insulin Disposition: 02 XFER SHT-TRM HOSP Condition: Stable Departure-Patient Inst. Referrals: [facility] (PCP) Primary Care Physician PREET MARES APRN (Family) Primary Care Physician ROSLYN LASSITER DO Oct 03, 2022 04:04 RONNY CHAVEZ DO Oct 03, 2022 07:26
[2022-10-03 04:06] LABS: BILIRUBIN,URINE 1+ (NEGATIVE); CLARITY,URINE CLEAR; COLOR,URINE YELLOW; GLUCOSE, URINE (UA) NEGATIVE (NEGATIVE); KETONES,URINE TRACE (NEGATIVE); LEUKOCYTE ESTERASE ,URINE NEGATIVE (NEGATIVE); NITRITE,URINE NEGATIVE (NEGATIVE); PH,URINE 6.5 (5-9); PROTEIN,URINE 3+ (NEGATIVE)
[2022-10-03 04:09] LABS: BASOPHILS # (AUTO) 0.1 10^3/uL (0.0-0.1); BASOPHILS % (AUTO) 0 % (0-10); EOSINOPHILS % (AUTO) 0 % (0-10); HEMATOCRIT 34 % (35-52); HEMOGLOBIN 11.4 g/dL (11.5-16.0); LYMPHOCYTES # (AUTO) 1.6 10^3/uL (1.0-4.0); LYMPHOCYTES % (AUTO) 5 % (12-44); MEAN CORPUSCULAR HEMOGLOBIN 33 pg (25-34); MEAN CORPUSCULAR HGB CONC 34 g/dL (32-36); MEAN CORPUSCULAR VOLUME 99 fL (80-99); MEAN PLATELET VOLUME 11.5 fL (9.0-12.2); MONOCYTES # (AUTO) 0.9 10^3/uL (0.0-1.0); MONOCYTES % (AUTO) 3 % (0-12); NEUTROPHILS # (AUTO) 31.5 10^3/uL (1.8-7.8); NEUTROPHILS % (AUTO) 92 % (42-75); PLATELET COUNT 174 10^3/uL (130-400)
[2022-10-03 04:17] LABS: WHITE BLOOD COUNT 34.5 10^3/uL (4.3-11.0)
[2022-10-03 04:21] LABS: AMPHETAMINE SCREEN, URINE NEGATIVE (NEGATIVE); BACTERIA,URINE TRACE /HPF; BARBITURATE SCREEN URINE NEGATIVE (NEGATIVE); BENZODIAZEPINES SCREEN URINE NEGATIVE (NEGATIVE); CANNABINOID SCREEN, URINE NEGATIVE (NEGATIVE); COCAINE SCREEN URINE NEGATIVE (NEGATIVE); METHADONE STAT NEGATIVE (NEGATIVE); OPIATE SCREEN URINE NEGATIVE (NEGATIVE); OXYCODONE STAT POSITIVE (NEGATIVE); PROPOXYPHENE STAT NEGATIVE (NEGATIVE); RBC,URINE 0-2 /HPF; SQUAMOUS EPITHELIAL CELL,UR 0-2 /HPF; TRICYCLIC ANTIDEPRESSANTS SCRE NEGATIVE (NEGATIVE); WBC,URINE 0-2 /HPF
[2022-10-03 04:26] LABS: BAND NEUTROPHILS 17 %; BASOPHILS % (MANUAL) 0 %; EOSINOPHILS % (MANUAL) 0 %; LYMPHOCYTES % (MANUAL) 0 %; MONOCYTES % (MANUAL) 1 %; NEUTROPHILS % (MANUAL) 82 %; TOXIC GRANULATION/VACUOLAZATIO 1+
[2022-10-03 04:39] LABS: ALBUMIN 3.8 GM/DL (3.2-4.5); CHLORIDE 91 MMOL/L (98-107); POTASSIUM 4.3 MMOL/L (3.6-5.0); SODIUM 132 MMOL/L (135-145)
[2022-10-03 04:40] LABS: CALCIUM 9.6 MG/DL (8.5-10.1)
[2022-10-03 04:41] LABS: AMYLASE 35 U/L (25-125); GLUCOSE 178 MG/DL (70-105); TOTAL PROTEIN 7.5 GM/DL (6.4-8.2)
[2022-10-03 04:42] LABS: CARBON DIOXIDE 22 MMOL/L (21-32)
[2022-10-03 04:43] LABS: BILIRUBIN,TOTAL 0.9 MG/DL (0.1-1.0)
[2022-10-03 04:45] LABS: ALKALINE PHOSPHATASE 33 U/L (40-136); CREATININE SERUM 4.61 MG/DL (0.60-1.30); GFR ESTIMATED 11
[2022-10-03] MEDS ORDERED: CEFEPIME INJECTION 1,000 MG in NS (IVPB) 50 ML IV ONE (04:45)
[2022-10-03] MEDS ORDERED: NS IV 1000 ML 1,000 ML IV SCH (04:45)
[2022-10-03 04:46] LABS: BUN/CREATININE RATIO 6; INR 1.1 (0.8-1.4); PROTHROMBIN TIME PATIENT 14.8 SEC (12.2-14.7)
[2022-10-03 04:48] LABS: ACETAMINOPHEN < 10 UG/ML (10-30); ALANINE AMINOTRANSFERASE 17 U/L (0-55); MAGNESIUM 1.8 MG/DL (1.6-2.4)
[2022-10-03 04:49] LABS: LIPASE 9 U/L (8-78)
[2022-10-03] MEDS ORDERED: ONDANSETRON 4 MG/2 ML (SDV) Z0FRAN IVP ONE (05:30)
[2022-10-03] MEDS ORDERED: ACETAMINOPHEN 500 MG TAB (TYLENOL) PO ONE (05:30)
--- NOTE | 2022-10-03 06:23 | Diagnostic Imaging Report ---
PROCEDURE: CT chest, abdomen, and pelvis without contrast. TECHNIQUE: Multiple contiguous axial images were obtained through the chest, abdomen, and pelvis without the use of intravenous contrast. Auto Exposure Controls were utilized during the CT exam to meet ALARA standards for radiation dose reduction. INDICATION: 51-year-old female presents with abdominal pain, flank pain with increasing intensity over the last 2 days. Multiple episodes of vomiting. Patient has a history of stage IV kidney disease. COMPARISONS: 02/06/2022. FINDINGS: There are few shotty benign-appearing axillary nodes. There are also few shotty benign-appearing mediastinal nodes but no evidence of hilar or mediastinal adenopathy. Cardiac contour is normal. Thoracic aortic contour is also normal. Few nonaneurysmal aortic calcifications are seen. There is also few coronary calcifications present. Lungs are clear with no consolidation, effusion or pneumothorax. Several calcified granuloma are seen in the left upper lobe. Liver shows uniform attenuation. There is no intraparenchymal mass or ductal dilatation. Gallbladder surgically absent. Spleen and GE junction are normal. Stomach and duodenal sweep are unremarkable. Pancreas shows sharp margins. Adrenals are normal. Kidneys appear normal in size, position, and contour. There is no hydronephrosis or hydroureter. Both ureters are seen intermittently through their course and appear grossly unremarkable. There are multiple phleboliths along the course of the right gonadal vein. There is also multiple pelvic phleboliths. Uterus and adnexa are grossly unremarkable. Bladder is nondistended. Nonopacified loops of small bowel show some fluid-filled loops of distal small bowel suggesting an element of enteritis. Large bowel contains fecal material and gas. There is no free air, free fluid or adenopathy. There is some nonaneurysmal aortic calcifications. Bone windows show lower lumbar multilevel hypertrophic facet changes. IMPRESSION: 1. Few benign-appearing mediastinal nodes but no evidence of mediastinal adenopathy. There is also no evidence of axillary or hilar adenopathy. 2. Coronary calcification are present. 3. Surgically absent gallbladder. 4. No evidence of obstructive uropathy. Multiple pelvic phleboliths are present as well as phleboliths along the right gonadal vein. No areas of peritoneal inflammation seen. 5. Some fluid-filled loops of small bowel suggests an element of ileus versus gastroneuritis. Additional nonemergent findings as described above. Dictated by: Dictated on workstation # [id number]
--- NOTE | 2022-10-03 08:13 | Diagnostic Imaging Report ---
EXAMINATION: Chest 1 view HISTORY: FEVER, COUGH COMPARISON: 02/06/2022 FINDINGS: Heart size and pulmonary vasculature are normal. The lungs are clear without consolidation, pleural effusion, or pneumothorax. The osseous structures are intact. IMPRESSION: 1. No acute radiographic abnormality in the chest. Dictated by: Dictated on workstation # [id number]
[2022-10-03 10:29] VITALS: BP 134/78
== END 2022-10-03 10:29 | disposition short-term general hospital (02) ==
LOC: EDUNIT# 03:43 → ER 03:44
DX: A41.9 Sepsis, unspecified organism (principal); E11.22 Type 2 diabetes mellitus with diabetic chronic kidney disease; I12.0 Hypertensive chronic kidney disease with stage 5 chronic kidney disease or end stage renal disease; N18.6 End stage renal disease; E11.40 Type 2 diabetes mellitus with diabetic neuropathy, unspecified; E66.9 Obesity, unspecified; R00.0 Tachycardia, unspecified; Z99.2 Dependence on renal dialysis; Z79.4 Long term (current) use of insulin; Z68.36 Body mass index [BMI] 36.0-36.9, adult; Z20.822 Contact with and (suspected) exposure to COVID-19
CPT/HCPCS: 36415; 51701; 71045; 71250; 74176; 80053; 80306; 80320; 80329; 81000; 82010; 82150; 83036; 83605; 83690; 83735; 85007; 85027; 85610; 85730; 87040; 87088; 87636; 93041

== ENCOUNTER 2023-01-13 13:05 | Emergency (ER) | payer MEDICARE, MEDICAID ==
[~2023-01-13] VITALS: Ht 165 cm; Wt 104.3 kg
[~2023-01-13 13:05] MED LIST changes: -INSU100I29 SQ; +INSU100I30 SQ
[2023-01-13] MEDS ORDERED: CEFEPIME INJECTION 1,000 MG in NS (IVPB) 50 ML IV ONE (13:30)
--- NOTE | 2023-01-13 13:32 | ED Lower Extremity ---
General Chief Complaint: Lower Extremity Stated Complaint: CELLULITIS OF RT LOWER EXTREMITY Source: patient Exam Limitations: no limitations History of Present Illness Date Seen by Provider: Jan 13, 2023 Time Seen by Provider: 13:19 Initial Comments 52-year-old female with end-stage renal disease on hemodialysis, diabetic presents from hemodialysis. She completed her dialysis session and showed the nurse redness in her right lower leg. Patient states he was recommended she come to the emergency department for evaluation. She states her blood sugars have been in the 300s last several days. Redness started a couple of days ago. No fevers but she has had some chills. She has not been on any recent antibiotics. She has had issues with cellulitis in the past per her report. No drainage. All other systems reviewed and negative except documented per HPI. Voice recognition software was used to help create this chart Allergies and Home Medications Allergies Coded Allergies: metronidazole (Unverified Allergy, Mild, RASH, 10/30/19) MACULAR RASH amlodipine (Verified Allergy, Unknown, 10/25/19) clarithromycin (Verified Allergy, Unknown, 10/21/19) hydrocodone (Verified Allergy, Unknown, 10/21/19) Patient Home Medication List Home Medication List Reviewed: Yes Acetaminophen (Tylenol 8 Hour) 650 Mg Tablet.er, 650 MG PO Q6H PRN for PAIN-MILD (1-4) OR TEMPATURE, (Reported) Entered as Reported by: BOB ROCHE on 11/12/211451 Allopurinol (Allopurinol) 100 Mg Tablet, 100 MG PO DAILY, (Reported) Entered as Reported by: BOB ROCHE on 11/12/211451 Aspirin (Aspirin) 81 Mg Tab.chew, 81 MG PO DAILY, (Reported) Entered as Reported by: BOB ROCHE on 11/12/211451 Atorvastatin Calcium (Atorvastatin Calcium) 80 Mg Tablet, 80 MG PO HS, (Reported) Entered as Reported by: BOB ROCHE on 11/12/211451 Buspirone HCl (Buspirone HCl) 10 Mg Tablet, 10 MG PO 0900,1700, (Reported) Entered as Reported by: BOB ROCHE on 11/12/211451 Clopidogrel Bisulfate (Clopidogrel) 75 Mg Tablet, 75 MG PO DAILY, (Reported) Entered as Reported by: BOB ROCHE on 11/12/211451 Dicyclomine HCl (Dicyclomine HCl) 20 Mg Tablet, 20 MG PO ACHS PRN for CRAMPING, (Reported) Entered as Reported by: BOB ROCHE on 11/12/211451 Duloxetine HCl (Duloxetine HCl) 20 Mg Capsule.dr, 20 MG PO DAILY, (Reported) Entered as Reported by: BOB ROCHE on 11/12/211451 Duloxetine HCl (Duloxetine HCl) 60 Mg Capsule.dr, 60 MG PO DAILY, (Reported) Entered as Reported by: BOB ROCHE on 11/12/211451 Ergocalciferol (Vitamin D2) (Vitamin D2) 1,250 Mcg Capsule, 1,250 MCG PO FRI, (Reported) Entered as Reported by: BOB ROCHE on 11/12/211451 Furosemide (Furosemide) 40 Mg Tablet, 40 MG PO DAILY, (Reported) Entered as Reported by: BOB ROCHE on 11/12/211451 Gabapentin (Neurontin) 300 Mg Capsule, 300 MG PO 0900,1700, (Reported) Entered as Reported by: BOB ROCHE on 11/12/211451 Glucagon HCl (Glucagon Emergency Kit) 1 Mg Vial, 1 MG IJ UD PRN for BLOOD GLUCOSE LESS THAN 70, (Reported) Entered as Reported by: BOB ROCHE on 11/12/211451 Insulin Glargine-Yfgn (Insulin Glargine-Yfgn) 100 Unit/1 Ml Insuln.pen, 12 UNITS SC BID, (Reported) Entered as Reported by: BOB ROCHE on 11/12/211451 Insulin Lispro (Insulin Lispro Kwikpen U-100) 100 Unit/1 Ml Insuln.pen, 8 UNITS SC AC, (Reported) Entered as Reported by: BOB ROCHE on 11/12/211451 Lactobacillus Acidophilus (Acidophilus) 1 Each Capsule, 1 EACH PO DAILY, (Reported) Entered as Reported by: BOB ROCHE on 11/12/211451 Levothyroxine Sodium (Levothyroxine Sodium) 25 Mcg Tablet, 25 MCG PO DAILY, (Reported) Entered as Reported by: BOB ROCHE on 11/12/211451 Liraglutide (Victoza 3-Aravind) 0.6 Mg/0.1 Ml Pen.injctr, 0.6 MG SQ DAILY, (Reported) Entered as Reported by: BOB ROCHE on 11/12/21 150 Melatonin (Melatonin) 3 Mg Tablet, 3 MG PO HS PRN for INSOMNIA, (Reported) Entered as Reported by: BOB ROCHE on 11/12/211451 Metoprolol Succinate (Metoprolol Succinate) 200 Mg Tab.er.24h, 200 MG PO HS, (Reported) Entered as Reported by: BOB ROCHE on 11/12/211451 Montelukast Sodium (Montelukast Sodium) 10 Mg Tablet, 10 MG PO HS, (Reported) Entered as Reported by: BOB ROCHE on 11/12/211451 Multivitamin (Multivitamin) 1 Each Tablet, 1 EACH PO DAILY, (Reported) Entered as Reported by: BOB ROCHE on 11/12/211451 Nifedipine (Nifedipine ER) 30 Mg Tab.er.24, 30 MG PO DAILY, (Reported) Entered as Reported by: BOB ROCHE on 11/12/211451 Olopatadine HCl (Pataday) 5 Ml Drops, 1 DROP OU DAILY, (Reported) Entered as Reported by: BOB ROCHE on 11/12/211451 [place]-3 Acid Ethyl Esters (Hext-3 Acid Ethyl Esters) 1 Gm Capsule, 2 GM PO DAILY, (Reported) Entered as Reported by: BOB ROCHE on 11/12/211451 Oxycodone HCl/Acetaminophen (Oxycodone-Acetaminophen 5-325) 1 Each Tablet, 1 EA PO Q6H PRN for PAIN-MODERATE (5-7), (Reported) Entered as Reported by: BOB ROCHE on 11/12/211451 Polyethylene Glycol 3350 (Miralax) 17 Gm Powd.pack, 17 GM PO DAILY PRN for CONSTIPATION-2ND LINE, (Reported) Entered as Reported by: BOB ROCHE on 11/12/211451 Sevelamer Carbonate (Sevelamer Carbonate) 800 Mg Tablet, 1,600 MG PO 1730, (Reported) Entered as Reported by: BOB ROCHE on 11/12/21 145 Sevelamer HCl (Sevelamer HCl) 800 Mg Tablet, 800 MG PO 0730,1230, (Reported) Entered as Reported by: BOB ROCHE on 11/12/211451 Trazodone HCl (Trazodone HCl) 50 Mg Tablet, 50-100 MG PO HS PRN for SLEEP, (Reported) Entered as Reported by: BOB ROCHE on 11/12/211451 Review of Systems Constitutional: see HPI, chills Past Crzfpkd-Rnutsx-Gxufww Hx Patient Social History Tobacco Use?: No Use of E-Cig and/or Vaping dev: No Substance use?: No Alcohol Use?: No Immunizations Up To Date Tetanus Booster (TDap): Unknown First/Initial COVID19 Vaccinat: 2020 Second COVID19 Vaccination Osei: 2020 Third COVID19 Vaccination Date: N/A Seasonal Allergies Seasonal Allergies: Yes Past Medical History Surgery/Hospitalization HX: DM, Stage IV renal failure, ABDOMINAL, TOE AMPUTATION, R FISTULA, C-SECT, ORTHO, TUBAL, HD MWF, NEUROPATHY, GERD, HYPOTHRYOIDISM, ANXIETY, Surgeries: Yes (LEFT TOE #2 AMPUTATED AND PARTIAL AMPUTATATION OF LEFT GREAT TOE; ) Abdominal, Amputation, Section, Eye Surgery, Orthopedic, Tubal Ligation, Vascular Surgery Respiratory: No Cardiac: Yes Chronic Edema/Swelling, Hypertension Neurological: Yes (PERIPHERAL NEUROPATHY) 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 Genitourinary: Yes (END STAGE RENAL FAILURE-NOW ON DIALYSIS) Bladder Infection, Renal Failure, Dialysis Gastrointestinal: Yes (GASTROPARESIS) Gastroesophageal Reflux Musculoskeletal: Yes (LEFT 2ND TOE AMPUTATED AND PARTIAL LEFT GREAT TOE AMPUTATED) Amputee Endocrine: Yes (OBESITY) Diabetes, Insulin dep, Hypothyroidsim HEENT: Yes (RETINOPATHY) Macular Degeneration Cancer: No Psychosocial: Yes Anxiety Integumentary: Yes (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) Blood Disorders: Yes (ANEMIA) Family Medical History Reviewed Nursing Family Hx Asthma G8 BROTHER G8 BROTHER Cardiovascular disease 19 FATHER G8 BROTHER Diabetes mellitus 19 MOTHER G8 BROTHER G8 BROTHER Kidney disease G8 BROTHER Myocardial infarction 19 FATHER Respiratory disorder G8 BROTHER G8 BROTHER No Pertinent Family Hx Physical Exam Vital Signs Vital Signs - First Documented 01/13/23 13:16 Temp 37.1 Pulse 98 Resp 18 B/P (MAP) 162/87 (112) Pulse Ox 97 O2 Delivery Room Air Capillary Refill : Height, Weight, BMI Height: 5'5.00" Weight: 221lbs. 4.8oz. [id number]; 36.00 BMI Method:Stated General Appearance: WD/WN, no apparent distress HEENT: normal ENT inspection, pharynx normal Neck: non-tender, full range of motion, supple, normal inspection Cardiovascular: tachycardia (Borderline tachycardia with a rate of 100) Respiratory: chest non-tender, lungs clear, normal breath sounds, no respiratory distress, no accessory muscle use Gastrointestinal: normal bowel sounds, non tender, soft Legs: right leg other (There are several scabbed lesions to anterior medial, lateral right boyer region. There is a bandlike area of erythema underlying the scabbed areas. There is no fluctuance. She has 2+ pitting edema bilateral lower extremities. Chronic venous stasis changes. Good pulses, strength and sensation.) Neurologic/Psychiatric: alert, normal mood/affect, oriented x 3 Skin: warm/dry, other (As described above) Progress/Results/Core Measures Results/Orders Lab Results Laboratory Tests Test 01/13/23 13:31 01/13/23 13:35 Range/Units Glucometer 190 H 70-110 MG/DL White Blood Count 14.1 H 4.3-11.0 10^3/uL Red Blood Count 3.79 L 3.80-5.11 10^6/uL Hemoglobin 12.7 11.5-16.0 g/dL Hematocrit 37 35-52 % Mean Corpuscular Volume 98 80-99 fL Mean Corpuscular Hemoglobin 34 25-34 pg Mean Corpuscular Hemoglobin Concent 34 32-36 g/dL Red Cell Distribution Width 11.7 10.0-14.5 % Platelet Count 177 130-400 10^3/uL Mean Platelet Volume 11.5 9.0-12.2 fL Immature Granulocyte % (Auto) 0 % Neutrophils (%) (Auto) 83 H 42-75 % Lymphocytes (%) (Auto) 10 L 12-44 % Monocytes (%) (Auto) 7 0-12 % Eosinophils (%) (Auto) 0 0-10 % Basophils (%) (Auto) 0 0-10 % Neutrophils # (Auto) 11.8 H 1.8-7.8 10^3/uL Lymphocytes # (Auto) 1.4 1.0-4.0 10^3/uL Monocytes # (Auto) 0.9 0.0-1.0 10^3/uL Eosinophils # (Auto) 0.0 0.0-0.3 10^3/uL Basophils # (Auto) 0.0 0.0-0.1 10^3/uL Immature Granulocyte # (Auto) 0.0 0.0-0.1 10^3/uL Neutrophils % (Manual) 81 % Lymphocytes % (Manual) 14 % Monocytes % (Manual) 5 % Eosinophils % (Manual) 0 % Basophils % (Manual) 0 % Band Neutrophils 0 % Blood Morphology Comment NORMAL Sodium Level 136 135-145 MMOL/L Potassium Level 4.6 3.6-5.0 MMOL/L Chloride Level 95 L 98-107 MMOL/L Carbon Dioxide Level 26 21-32 MMOL/L Anion Gap 15 H 5-14 MMOL/L Blood Urea Nitrogen 37 H 7-18 MG/DL Creatinine 4.69 H 0.60-1.30 MG/DL Estimat Glomerular Filtration Rate 11 BUN/Creatinine Ratio 8 Glucose Level 169 H 70-105 MG/DL Calcium Level 9.7 8.5-10.1 MG/DL Corrected Calcium 8.5-10.1 MG/DL Total Bilirubin 0.8 0.1-1.0 MG/DL Aspartate Amino Transf (AST/SGOT) 21 5-34 U/L Alanine Aminotransferase (ALT/SGPT) 27 0-55 U/L Alkaline Phosphatase 43 40-136 U/L Total Protein 8.5 H 6.4-8.2 GM/DL Albumin 4.7 H 3.2-4.5 GM/DL Beta-Hydroxybutyrate (Chem panel) 0.21 0.00-0.27 MMOL/L My Orders Orders - RONNY CHAVEZ DO Cbc With Automated Diff (01/13/23 13:25) Comprehensive Metabolic Panel (01/13/23 13:25) Blood Culture (01/13/23 13:25) Protime With Inr (01/13/23 13:25) Partial Thromboplastin Time (01/13/23 13:25) Ed Iv/Invasive Line Start (01/13/23 13:25) Vital Signs Adult Sepsis Patie Q15M (01/13/23 13:25) Lactic Acid Analyzer (01/13/23 13:25) Cefepime Injection (Maxipime Injection) (01/13/23 13:30) Beta Hydroxybutyrate (01/13/23 13:26) Manual Differential (01/13/23 13:35) Vital Signs/I&O 01/13/23 13:16 Temp 37.1 Pulse 98 Resp 18 B/P (MAP) 162/87 (112) Pulse Ox 97 O2 Delivery Room Air Departure Communication (Admissions) Patient is hemodynamically stable, nontoxic. She finished her whole course of dialysis today. Electrolytes are normal. Creatinine is at its baseline. Does have an obvious cellulitis right anterior leg. No fluctuance or drainable abscess. Initially ordered IV antibiotics however they had a hard time getting an IV and therefore we jah blood and give her IM Rocephin. She got this prior to discharge. We were unable to obtain a lactate however she is not tachycardic, hypotensive I think it is okay without this. She does have slight leukocytosis. Blood sugars are elevated as expected with an infection. This should be manageable at home at this time at least as a trial. Advised if she is getting worse in 48 hours she needs to return. I did advise she see her primary doctor in 48 hours for recheck of the leg regardless. She will return for fevers or any other concerning symptoms. Impression Primary Impression: Cellulitis of right anterior lower leg Disposition: HOME, SELF-CARE Condition: Stable Departure-Patient Inst. Referrals: ZAN SEGLA DO (PCP/Family) Primary Care Physician Add. Discharge Instructions: Take the antibiotics as prescribed until they are gone for the infection in your lower leg. Continue insulin at home as previously prescribed. Return to the emergency department if your symptoms are worsening after 48 hours. If your symptoms change in any way concerning to you prior to this of course return to the emergency department sooner. Use your home pain medications as previously prescribed. Follow-up with your primary doctor in 48 hours for recheck of your leg All discharge instructions reviewed with patient and/or family. Voiced understanding. Scripts Cephalexin (Cephalexin) 500 Mg Tablet 500 MG PO TID for 10 Days, #30 TAB Prov: RONNY CHAVEZ DO 01/13/23 RONNY CHAVEZ DO Jan 13, 2023 13:32
[2023-01-13 13:39] LABS: BASOPHILS % (AUTO) 0 % (0-10); EOSINOPHILS % (AUTO) 0 % (0-10); HEMATOCRIT 37 % (35-52); HEMOGLOBIN 12.7 g/dL (11.5-16.0); LYMPHOCYTES # (AUTO) 1.4 10^3/uL (1.0-4.0); LYMPHOCYTES % (AUTO) 10 % (12-44); MEAN CORPUSCULAR HEMOGLOBIN 34 pg (25-34); MEAN CORPUSCULAR HGB CONC 34 g/dL (32-36); MEAN CORPUSCULAR VOLUME 98 fL (80-99); MEAN PLATELET VOLUME 11.5 fL (9.0-12.2); MONOCYTES # (AUTO) 0.9 10^3/uL (0.0-1.0); MONOCYTES % (AUTO) 7 % (0-12); NEUTROPHILS # (AUTO) 11.8 10^3/uL (1.8-7.8); NEUTROPHILS % (AUTO) 83 % (42-75); PLATELET COUNT 177 10^3/uL (130-400); WHITE BLOOD COUNT 14.1 10^3/uL (4.3-11.0)
[2023-01-13 13:47] LABS: ALBUMIN 4.7 GM/DL (3.2-4.5); CHLORIDE 95 MMOL/L (98-107); POTASSIUM 4.6 MMOL/L (3.6-5.0); SODIUM 136 MMOL/L (135-145)
[2023-01-13 13:49] LABS: CALCIUM 9.7 MG/DL (8.5-10.1)
[2023-01-13 13:50] LABS: GLUCOSE 169 MG/DL (70-105); TOTAL PROTEIN 8.5 GM/DL (6.4-8.2)
[2023-01-13 13:51] LABS: CARBON DIOXIDE 26 MMOL/L (21-32)
[2023-01-13 13:52] LABS: BILIRUBIN,TOTAL 0.8 MG/DL (0.1-1.0)
[2023-01-13 13:53] LABS: ALKALINE PHOSPHATASE 43 U/L (40-136); CREATININE SERUM 4.69 MG/DL (0.60-1.30); GFR ESTIMATED 11
[2023-01-13 13:54] LABS: BUN/CREATININE RATIO 8
[2023-01-13 13:55] LABS: BAND NEUTROPHILS 0 %; BASOPHILS % (MANUAL) 0 %; EOSINOPHILS % (MANUAL) 0 %; LYMPHOCYTES % (MANUAL) 14 %; MONOCYTES % (MANUAL) 5 %; NEUTROPHILS % (MANUAL) 81 %; RBC MORPH NORMAL
[2023-01-13 13:56] LABS: ALANINE AMINOTRANSFERASE 27 U/L (0-55)
[2023-01-13] MEDS ORDERED: LIDOCAINE 1% INJ 20 ML VIAL INJ ONE (15:45)
[2023-01-13] MEDS ORDERED: cefTRIAXone 1,000 MG VIAL IM ONE (15:45)
[2023-01-13] MEDS ORDERED: CEPH500T PO (15:46)
[2023-01-13] MEDS ORDERED: LIDOCAINE 1% INJ 10 ML VIAL ONE (15:51)
[2023-01-13 16:20] VITALS: BP 157/88
== END 2023-01-13 16:20 | disposition home or self-care (01) ==
LOC: EDUNIT# 13:05 → ER 13:07
DX: L03.115 Cellulitis of right lower limb (principal); I12.0 Hypertensive chronic kidney disease with stage 5 chronic kidney disease or end stage renal disease; E11.22 Type 2 diabetes mellitus with diabetic chronic kidney disease; N18.6 End stage renal disease; E11.43 Type 2 diabetes mellitus with diabetic autonomic (poly)neuropathy; K31.84 Gastroparesis; E66.9 Obesity, unspecified; D72.829 Elevated white blood cell count, unspecified; Z99.2 Dependence on renal dialysis; Z68.36 Body mass index [BMI] 36.0-36.9, adult
CPT/HCPCS: 36415; 80053; 82010; 82947; 85007; 85027; 87040; 99284

== ENCOUNTER 2023-05-27 18:38 | Emergency (ER) | payer MEDICARE, MEDICAID ==
[~2023-05-27 18:38] MED LIST changes: -LACT10SO33 PO; +LACT10SO74 PO
--- NOTE | 2023-05-27 19:44 | ED Chest Pain ---
General Chief Complaint: Cardiac/General Problems Stated Complaint: BP 250/124 AFTER TAKING IT 2 TIMES Nursing Triage Note: PT AMB TO RM 3 WITH WALKER WITH C/O HTN, DIZZINESS AND HEADACHE Source: patient History of Present Illness Date Seen by Provider: May 27, 2023 Time Seen by Provider: 19:44 Allergies and Home Medications Allergies Coded Allergies: metronidazole (Unverified Allergy, Mild, RASH, 10/30/19) MACULAR RASH amlodipine (Verified Allergy, Unknown, 10/25/19) clarithromycin (Verified Allergy, Unknown, 10/21/19) hydrocodone (Verified Allergy, Unknown, 10/21/19) Patient Home Medication List Acetaminophen (Tylenol 8 Hour) 650 Mg Tablet.er, 650 MG PO Q6H PRN for PAIN-MILD (1-4) OR TEMPATURE, (Reported) Entered as Reported by: BOB ROCHE on 11/12/211451 Allopurinol (Allopurinol) 100 Mg Tablet, 100 MG PO DAILY, (Reported) Entered as Reported by: BOB ROCHE on 11/12/211451 Aspirin (Aspirin) 81 Mg Tab.chew, 81 MG PO DAILY, (Reported) Entered as Reported by: BOB ROCHE on 11/12/21 145 Atorvastatin Calcium (Atorvastatin Calcium) 80 Mg Tablet, 80 MG PO HS, (Reported) Entered as Reported by: BOB ROCHE on 11/12/211451 Buspirone HCl (Buspirone HCl) 10 Mg Tablet, 10 MG PO 0900,1700, (Reported) Entered as Reported by: BOB ROCHE on 11/12/211451 Cephalexin (Cephalexin) 500 Mg Tablet, 500 MG PO TID Prescribed by: RONNY CHAVEZ MD on 01/13/23 1546 Clopidogrel Bisulfate (Clopidogrel) 75 Mg Tablet, 75 MG PO DAILY, (Reported) Entered as Reported by: BOB ROCHE on 11/12/21 145 Dicyclomine HCl (Dicyclomine HCl) 20 Mg Tablet, 20 MG PO ACHS PRN for CRAMPING, (Reported) Entered as Reported by: BOB ROCHE on 11/12/21 145 Duloxetine HCl (Duloxetine HCl) 20 Mg Capsule.dr, 20 MG PO DAILY, (Reported) Entered as Reported by: BOB ROCHE on 11/12/211451 Duloxetine HCl (Duloxetine HCl) 60 Mg Capsule.dr, 60 MG PO DAILY, (Reported) Entered as Reported by: BOB ROCHE on 11/12/211451 Ergocalciferol (Vitamin D2) (Vitamin D2) 1,250 Mcg Capsule, 1,250 MCG PO FRI, (Reported) Entered as Reported by: BOB ROCHE on 11/12/211451 Furosemide (Furosemide) 40 Mg Tablet, 40 MG PO DAILY, (Reported) Entered as Reported by: BOB ROCHE on 11/12/211451 Gabapentin (Neurontin) 300 Mg Capsule, 300 MG PO 0900,1700, (Reported) Entered as Reported by: BOB ROCHE on 11/12/211451 Glucagon HCl (Glucagon Emergency Kit) 1 Mg Vial, 1 MG IJ UD PRN for BLOOD GLUCOSE LESS THAN 70, (Reported) Entered as Reported by: BOB ROCHE on 11/12/211451 Insulin Glargine-Yfgn (Insulin Glargine-Yfgn) 100 Unit/1 Ml Insuln.pen, 12 UNITS SC BID, (Reported) Entered as Reported by: BOB ROCHE on 11/12/211451 Insulin Lispro (Insulin Lispro Kwikpen U-100) 100 Unit/1 Ml Insuln.pen, 8 UNITS SC AC, (Reported) Entered as Reported by: BOB ROCHE on 11/12/211451 Lactobacillus Acidophilus (Acidophilus) 1 Each Capsule, 1 EACH PO DAILY, (Reported) Entered as Reported by: BOB ROCHE on 11/12/211451 Levothyroxine Sodium (Levothyroxine Sodium) 25 Mcg Tablet, 25 MCG PO DAILY, (Reported) Entered as Reported by: BOB ROCHE on 11/12/211451 Liraglutide (Victoza 3-Aravind) 0.6 Mg/0.1 Ml Pen.injctr, 0.6 MG SQ DAILY, (Reported) Entered as Reported by: BOB ROCHE on 11/12/21 150 Melatonin (Melatonin) 3 Mg Tablet, 3 MG PO HS PRN for INSOMNIA, (Reported) Entered as Reported by: BOB ROCHE on 11/12/211451 Metoprolol Succinate (Metoprolol Succinate) 200 Mg Tab.er.24h, 200 MG PO HS, (Reported) Entered as Reported by: BOB ROCHE on 11/12/211451 Montelukast Sodium (Montelukast Sodium) 10 Mg Tablet, 10 MG PO HS, (Reported) Entered as Reported by: BOB ROCHE on 11/12/211451 Multivitamin (Multivitamin) 1 Each Tablet, 1 EACH PO DAILY, (Reported) Entered as Reported by: BOB ROCHE on 11/12/211451 Nifedipine (Nifedipine ER) 30 Mg Tab.er.24, 30 MG PO DAILY, (Reported) Entered as Reported by: BOB ROCHE on 11/12/211451 Olopatadine HCl (Pataday) 5 Ml Drops, 1 DROP OU DAILY, (Reported) Entered as Reported by: BOB ROCHE on 11/12/211451 [place]-3 Acid Ethyl Esters ([place]-3 Acid Ethyl Esters) 1 Gm Capsule, 2 GM PO DAILY, (Reported) Entered as Reported by: BOB ROCHE on 11/12/211451 Oxycodone HCl/Acetaminophen (Oxycodone-Acetaminophen 5-325) 1 Each Tablet, 1 EA PO Q6H PRN for PAIN-MODERATE (5-7), (Reported) Entered as Reported by: BOB ROCHE on 11/12/211451 Polyethylene Glycol 3350 (Miralax) 17 Gm Powd.pack, 17 GM PO DAILY PRN for CONSTIPATION-2ND LINE, (Reported) Entered as Reported by: BOB ROCHE on 11/12/211451 Sevelamer Carbonate (Sevelamer Carbonate) 800 Mg Tablet, 1,600 MG PO 1730, (Reported) Entered as Reported by: BOB ROCHE on 11/12/211451 Sevelamer HCl (Sevelamer HCl) 800 Mg Tablet, 800 MG PO 0730,1230, (Reported) Entered as Reported by: BOB ROCHE on 11/12/211451 Trazodone HCl (Trazodone HCl) 50 Mg Tablet, 50-100 MG PO HS PRN for SLEEP, (Reported) Entered as Reported by: BOB ROCHE on 11/12/211451 Past Uobxnyp-Xoljhr-Abauui Hx Patient Social History Tobacco Use?: No Use of E-Cig and/or Vaping dev: No Substance use?: No Alcohol Use?: No Pt feels they are or have been: No Immunizations Up To Date Tetanus Booster (TDap): Unknown First/Initial COVID19 Vaccinat: 2020 Second COVID19 Vaccination Osei: 2020 Third COVID19 Vaccination Date: N/A Seasonal Allergies Seasonal Allergies: Yes Past Medical History Surgery/Hospitalization HX: DM 2, Stage IV renal failure, ABDOMINAL, TOE AMPUTATION, R FISTULA, C-SECT, ORTHO, TUBAL, HD MWF, NEUROPATHY, GERD, HYPOTHRYOIDISM, ANXIETY Surgeries: Yes (LEFT TOE #2 AMPUTATED AND PARTIAL AMPUTATATION OF LEFT GREAT TO E; ) Abdominal, Amputation, Section, Eye Surgery, Orthopedic, Tubal Ligation, Vascular Surgery Respiratory: No Cardiac: Yes Chronic Edema/Swelling, Hypertension Neurological: Yes (PERIPHERAL NEUROPATHY) 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 Genitourinary: Yes (END STAGE RENAL FAILURE-NOW ON DIALYSIS) Bladder Infection, Renal Failure, Dialysis Gastrointestinal: Yes (GASTROPARESIS) Gastroesophageal Reflux Musculoskeletal: Yes (LEFT 2ND TOE AMPUTATED AND PARTIAL LEFT GREAT TOE A MPUTATED) Amputee Endocrine: Yes (OBESITY) Diabetes, Insulin dep, Hypothyroidsim HEENT: Yes (RETINOPATHY) Macular Degeneration Cancer: No Psychosocial: Yes Anxiety Integumentary: Yes (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) Blood Disorders: Yes (ANEMIA) Family Medical History Asthma G8 BROTHER G8 BROTHER Cardiovascular disease 19 FATHER G8 BROTHER Diabetes mellitus 19 MOTHER G8 BROTHER G8 BROTHER Kidney disease G8 BROTHER Myocardial infarction 19 FATHER Respiratory disorder G8 BROTHER G8 BROTHER No Pertinent Family Hx Physical Exam Vital Signs Vital Signs - First Documented 05/27/23 18:55 Temp 36.0 Pulse 93 Resp 18 B/P (MAP) 192/108 (136) Pulse Ox 100 O2 Delivery Room Air Capillary Refill : Height, Weight, BMI Height: 5'5.00" Weight: 221lbs. 4.8oz. 100.904856pu; 38.00 BMI Method:Stated Progress/Results/Core Measures Results/Orders Vital Signs/I&O 05/27/23 18:55 Temp 36.0 Pulse 93 Resp 18 B/P (MAP) 192/108 (136) Pulse Ox 100 O2 Delivery Room Air Blood Pressure Mean: 136 Departure Departure-Patient Inst. Referrals: ZAN SEGAL DO (PCP/Family) Primary Care Physician VICTORIA QURESHI MD May 27, 2023 19:44
--- NOTE | 2023-05-27 20:09 | ED General ---
General Chief Complaint: Cardiac/General Problems Stated Complaint: BP 250/124 AFTER TAKING IT 2 TIMES Nursing Triage Note: PT AMB TO RM 3 WITH WALKER WITH C/O HTN, DIZZINESS AND HEADACHE Source of Information: Patient Exam Limitations: No Limitations History of Present Illness Date Seen by Provider: May 27, 2023 Time Seen by Provider: 19:44 Initial Comments Loraine is a 52-year-old female who presents to the emergency room today with a ief complaint of feeling a little lightheaded, dizzy, mild headache and concern for elevated blood pressure. [facility] resides in a local [facility]. She is a diabetic, history of stroke. She does take medication for her high blood pressure. She states that she is compliant with her daily medications. She denies any symptoms of illness such as fevers, chills, URI symptoms. No aung rtness of breath or productive cough. No actual chest pain. No nausea or vomiting. She does complain of some increased volume of urination over the last several days. No dysuria or urgency. No diarrhea, black or bloody stools. She denies swelling in her legs. She states the symptoms seem to occur over the course of the last 3 or 4 hours. She is a dialysis patient on dialysis Wednesdays and Fridays. She states yesterday she stopped dialysis an hour early due to diarrhea. She also cut her dialysis short last Friday due to not feeling good. She cannot remember what her dry weight is and is not sure what her weight was when she finished dialysis today. She states she is not short of breath. She is not having a cough. Her dialysis doctor is Dr. Blake from [place]. She is no longer having diarrhea. Timing/Duration: 4-6 Hours Severity: Moderate Associated Systoms: No Chest Pain, No Fever/Chills; Headaches; No Loss of Appetite; Malaise, Weakness, Other (dizziness) Allergies and Home Medications Allergies Coded Allergies: metronidazole (Unverified Allergy, Mild, RASH, 10/30/19) MACULAR RASH amlodipine (Verified Allergy, Unknown, 10/25/19) clarithromycin (Verified Allergy, Unknown, 10/21/19) hydrocodone (Verified Allergy, Unknown, 10/21/19) Patient Home Medication List Home Medication List Reviewed: Yes Acetaminophen (Tylenol 8 Hour) 650 Mg Tablet.er, 650 MG PO Q6H PRN for PAIN-MILD (1-4) OR TEMPATURE, (Reported) Entered as Reported by: BOB ROCHE on 11/12/211451 Allopurinol (Allopurinol) 100 Mg Tablet, 100 MG PO DAILY, (Reported) Entered as Reported by: BOB ROCHE on 11/12/211451 Aspirin (Aspirin) 81 Mg Tab.chew, 81 MG PO DAILY, (Reported) Entered as Reported by: BOB ROCHE on 11/12/211451 Atorvastatin Calcium (Atorvastatin Calcium) 80 Mg Tablet, 80 MG PO HS, (Reported) Entered as Reported by: BOB ROCHE on 11/12/211451 Buspirone HCl (Buspirone HCl) 10 Mg Tablet, 10 MG PO 0900,1700, (Reported) Entered as Reported by: BOB ROCHE on 11/12/211451 Cephalexin (Cephalexin) 500 Mg Tablet, 500 MG PO TID Prescribed by: RONNY CHAVEZ MD on 01/13/23 154 Clopidogrel Bisulfate (Clopidogrel) 75 Mg Tablet, 75 MG PO DAILY, (Reported) Entered as Reported by: BOB ROCHE on 11/12/211451 Dicyclomine HCl (Dicyclomine HCl) 20 Mg Tablet, 20 MG PO ACHS PRN for CRAMPING, (Reported) Entered as Reported by: BOB ROCHE on 11/12/211451 Duloxetine HCl (Duloxetine HCl) 20 Mg Capsule.dr, 20 MG PO DAILY, (Reported) Entered as Reported by: BOB ROCHE on 11/12/211451 Duloxetine HCl (Duloxetine HCl) 60 Mg Capsule.dr, 60 MG PO DAILY, (Reported) Entered as Reported by: BOB ROCHE on 11/12/211451 Ergocalciferol (Vitamin D2) (Vitamin D2) 1,250 Mcg Capsule, 1,250 MCG PO FRI, (Reported) Entered as Reported by: BOB ROCHE on 11/12/211451 Furosemide (Furosemide) 40 Mg Tablet, 40 MG PO DAILY, (Reported) Entered as Reported by: BOB ROCHE on 11/12/211451 Gabapentin (Neurontin) 300 Mg Capsule, 300 MG PO 0900,1700, (Reported) Entered as Reported by: BOB ROCHE on 11/12/211451 Glucagon HCl (Glucagon Emergency Kit) 1 Mg Vial, 1 MG IJ UD PRN for BLOOD GLUCOSE LESS THAN 70, (Reported) Entered as Reported by: BOB ROCHE on 11/12/211451 Insulin Glargine-Yfgn (Insulin Glargine-Yfgn) 100 Unit/1 Ml Insuln.pen, 12 UNITS SC BID, (Reported) Entered as Reported by: BOB ROCHE on 11/12/211451 Insulin Lispro (Insulin Lispro Kwikpen U-100) 100 Unit/1 Ml Insuln.pen, 8 UNITS SC AC, (Reported) Entered as Reported by: BOB ROCHE on 11/12/211451 Lactobacillus Acidophilus (Acidophilus) 1 Each Capsule, 1 EACH PO DAILY, (Reported) Entered as Reported by: BOB ROCHE on 11/12/211451 Levothyroxine Sodium (Levothyroxine Sodium) 25 Mcg Tablet, 25 MCG PO DAILY, (Reported) Entered as Reported by: BOB ROCHE on 11/12/211451 Liraglutide (Victoza 3-Aravind) 0.6 Mg/0.1 Ml Pen.injctr, 0.6 MG SQ DAILY, (Reported) Entered as Reported by: BOB ROCHE on 11/12/21 150 Melatonin (Melatonin) 3 Mg Tablet, 3 MG PO HS PRN for INSOMNIA, (Reported) Entered as Reported by: BOB ROCHE on 11/12/211451 Metoprolol Succinate (Metoprolol Succinate) 200 Mg Tab.er.24h, 200 MG PO HS, (Reported) Entered as Reported by: BOB ROCHE on 11/12/211451 Montelukast Sodium (Montelukast Sodium) 10 Mg Tablet, 10 MG PO HS, (Reported) Entered as Reported by: BOB ROCHE on 11/12/211451 Multivitamin (Multivitamin) 1 Each Tablet, 1 EACH PO DAILY, (Reported) Entered as Reported by: BOB ROCHE on 11/12/211451 Nifedipine (Nifedipine ER) 30 Mg Tab.er.24, 30 MG PO DAILY, (Reported) Entered as Reported by: BOB ROCHE on 11/12/211451 Olopatadine HCl (Pataday) 5 Ml Drops, 1 DROP OU DAILY, (Reported) Entered as Reported by: BOB ROCHE on 11/12/211451 Tatum-3 Acid Ethyl Esters (Tatum-3 Acid Ethyl Esters) 1 Gm Capsule, 2 GM PO DAILY, (Reported) Entered as Reported by: BOB ROCHE on 11/12/211451 Oxycodone HCl/Acetaminophen (Oxycodone-Acetaminophen 5-325) 1 Each Tablet, 1 EA PO Q6H PRN for PAIN-MODERATE (5-7), (Reported) Entered as Reported by: BOB ROCHE on 11/12/211451 Polyethylene Glycol 3350 (Miralax) 17 Gm Powd.pack, 17 GM PO DAILY PRN for CONSTIPATION-2ND LINE, (Reported) Entered as Reported by: BOB ROCHE on 11/12/211451 Sevelamer Carbonate (Sevelamer Carbonate) 800 Mg Tablet, 1,600 MG PO 1730, (Reported) Entered as Reported by: BOB ROCHE on 11/12/211451 Sevelamer HCl (Sevelamer HCl) 800 Mg Tablet, 800 MG PO 0730,1230, (Reported) Entered as Reported by: BOB ROCHE on 11/12/211451 Trazodone HCl (Trazodone HCl) 50 Mg Tablet, 50-100 MG PO HS PRN for SLEEP, (Reported) Entered as Reported by: BOB ROCHE on 11/12/211451 Review of Systems Review of Systems Constitutional: see HPI EENTM: no symptoms reported Respiratory: no symptoms reported Cardiovascular: no symptoms reported Gastrointestinal: no symptoms reported Genitourinary: frequency : No Musculoskeletal: other (mild LE edema) Skin: other (wounds on feet) Psychiatric/Neurological: Headache, Weakness (generalized) Past Oyyklax-Eflnaa-Qyarhy Hx Patient Social History Tobacco Use?: No Use of E-Cig and/or Vaping dev: No Substance use?: No Alcohol Use?: No Pt feels they are or have been: No Immunizations Up To Date Tetanus Booster (TDap): Unknown First/Initial COVID19 Vaccinat: 2020 Second COVID19 Vaccination Osei: 2020 Third COVID19 Vaccination Date: N/A Seasonal Allergies Seasonal Allergies: Yes Past Medical History Surgery/Hospitalization HX: DM 2, Stage IV renal failure, ABDOMINAL, TOE AMPUTATION, R FISTULA, C-SECT, ORTHO, TUBAL, HD MWF, NEUROPATHY, GERD, HYPOTHRYOIDISM, ANXIETY Surgeries: Yes (LEFT TOE #2 AMPUTATED AND PARTIAL AMPUTATATION OF LEFT GREAT TOE; ) Abdominal, Amputation, Section, Eye Surgery, Orthopedic, Tubal Ligation, Vascular Surgery Respiratory: No Cardiac: Yes Chronic Edema/Swelling, Hypertension Neurological: Yes (PERIPHERAL NEUROPATHY) Neuropathy [employer] History: Menopausal Genitourinary: Yes (END STAGE RENAL FAILURE-NOW ON DIALYSIS) Bladder Infection, Renal Failure, Dialysis Gastrointestinal: Yes (GASTROPARESIS) Gastroesophageal Reflux Musculoskeletal: Yes (LEFT 2ND TOE AMPUTATED AND PARTIAL LEFT GREAT TOE AMPUTATED) Amputee Endocrine: Yes (OBESITY) Diabetes, Insulin dep, Hypothyroidsim HEENT: Yes (RETINOPATHY) Macular Degeneration Cancer: No Psychosocial: Yes Anxiety Integumentary: Yes (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) Blood Disorders: Yes (ANEMIA) Family Medical History Asthma G8 BROTHER G8 BROTHER Cardiovascular disease 19 FATHER G8 BROTHER Diabetes mellitus 19 MOTHER G8 BROTHER G8 BROTHER Kidney disease G8 BROTHER Myocardial infarction 19 FATHER Respiratory disorder G8 BROTHER G8 BROTHER No Pertinent Family Hx Physical Exam Vital Signs Vital Signs - First Documented 05/27/23 18:55 Temp 36.0 Pulse 93 Resp 18 B/P (MAP) 192/108 (136) Pulse Ox 100 O2 Delivery Room Air Capillary Refill : Height, Weight, BMI Height: 5'5.00" Weight: 221lbs. 4.8oz. [id number]; 38.00 BMI Method:Stated General Appearance: No Apparent Distress, WD/WN, Obese Eyes: Bilateral Eye Normal Inspection, Bilateral Eye PERRL, Bilateral Eye EOMI HEENT: PERRL/EOMI Neck: Normal Inspection Respiratory: Lungs Clear, Normal Breath Sounds, No Accessory Muscle Use, No Respiratory Distress Cardiovascular: Regular Rate, Rhythm, Normal Peripheral Pulses, Other (signif icantly hypertensive with SYS >200) Gastrointestinal: Soft, Tenderness (diffuse mild tenderness; normal BS) Back: Normal Inspection Extremity: Other (+ AV fistula RUE - with thrill; NVI to RUE) Neurologic/Psychiatric: Alert, Oriented x3, No Motor/Sensory Deficits, Normal Mood/Affect Skin: Normal Color, Warm/Dry Progress/Results/Core Measures Suspected Sepsis SIRS Temperature: Pulse: 93 Respiratory Rate: 18 Laboratory Tests 05/27/23 19:18: White Blood Count 8.7 Blood Pressure 192 /108 Mean: 136 Laboratory Tests 05/27/23 19:18: Creatinine 5.86H, Platelet Count 116L, Total Bilirubin 0.4 Results/Orders Lab Results Laboratory Tests Test 05/27/23 19:18 05/27/23 20:07 Range/Units White Blood Count 8.7 4.3-11.0 10^3/uL Red Blood Count 3.02 L 3.80-5.11 10^6/uL Hemoglobin 9.8 L 11.5-16.0 g/dL Hematocrit 30 L 35-52 % Mean Corpuscular Volume 99 80-99 fL Mean Corpuscular Hemoglobin 33 25-34 pg Mean Corpuscular Hemoglobin Concent 33 32-36 g/dL Red Cell Distribution Width 12.4 10.0-14.5 % Platelet Count 116 L 130-400 10^3/uL Mean Platelet Volume 12.7 H 9.0-12.2 fL Immature Granulocyte % (Auto) 1 % Neutrophils (%) (Auto) 69 42-75 % Lymphocytes (%) (Auto) 22 12-44 % Monocytes (%) (Auto) 7 0-12 % Eosinophils (%) (Auto) 1 0-10 % Basophils (%) (Auto) 0 0-10 % Neutrophils # (Auto) 6.0 1.8-7.8 10^3/uL Lymphocytes # (Auto) 1.9 1.0-4.0 10^3/uL Monocytes # (Auto) 0.7 0.0-1.0 10^3/uL Eosinophils # (Auto) 0.1 0.0-0.3 10^3/uL Basophils # (Auto) 0.0 0.0-0.1 10^3/uL Immature Granulocyte # (Auto) 0.0 0.0-0.1 10^3/uL Percent Immature Platelet Fraction 10.5 H 0.0-7.6 % Sodium Level 139 135-145 MMOL/L Potassium Level 4.2 3.6-5.0 MMOL/L Chloride Level 103 98-107 MMOL/L Carbon Dioxide Level 26 21-32 MMOL/L Anion Gap 10 5-14 MMOL/L Blood Urea Nitrogen 61 H 7-18 MG/DL Creatinine 5.86 H 0.60-1.30 MG/DL Estimat Glomerular Filtration Rate 8 BUN/Creatinine Ratio 10 Glucose Level 222 H 70-105 MG/DL Calcium Level 9.4 8.5-10.1 MG/DL Corrected Calcium 9.4 8.5-10.1 MG/DL Total Bilirubin 0.4 0.1-1.0 MG/DL Aspartate Amino Transf (AST/SGOT) 15 5-34 U/L Alanine Aminotransferase (ALT/SGPT) 15 0-55 U/L Alkaline Phosphatase 40 40-136 U/L Total Protein 7.0 6.4-8.2 GM/DL Albumin 4.0 3.2-4.5 GM/DL Smear Scan YES Urine Color YELLOW Urine Clarity CLEAR Urine pH 7.0 5-9 Urine Specific [place] >=1.030 1.016-1.022 Urine Protein 3+ H NEGATIVE Urine Glucose (UA) TRACE H NEGATIVE Urine Ketones NEGATIVE NEGATIVE Urine Nitrite NEGATIVE NEGATIVE Urine Bilirubin NEGATIVE NEGATIVE Urine Urobilinogen 0.2 < = 1.0 MG/DL Urine Leukocyte Esterase NEGATIVE NEGATIVE Urine RBC (Auto) 3+ H NEGATIVE Urine RBC 2-5 H /HPF Urine WBC 0-2 /HPF Urine Squamous Epithelial Cells 2-5 /HPF Urine Crystals NONE /LPF Urine Bacteria TRACE /HPF Urine Casts NONE /LPF Urine Mucus NEGATIVE /LPF Urine Culture Indicated NO My Orders Orders - VICTORIA QURESHI MD Ed Iv/Invasive Line Start (05/27/23 20:04) Cbc With Automated Diff (05/27/23 20:04) Comprehensive Metabolic Panel (05/27/23 20:04) Ua Culture If Indicated (05/27/23 20:04) Labetalol Injection (Sdv) (Labetalol Inj (05/27/23 20:15) Labetalol Injection (Sdv) (Labetalol Inj (05/27/23 21:15) Medications Given in ED Current Medications Medications Dose Ordered Sig/Arlet Route Start Time Stop Time Status Last Admin Dose Admin Labetalol HCl 10 mg ONCE ONCE IV 05/27/23 20:15 05/27/23 20:16 DC 05/27/23 20:11 10 MG Labetalol HCl 20 mg ONCE ONCE IV 05/27/23 21:15 05/27/23 21:16 DC 05/27/23 21:18 20 MG Vital Signs/I&O 05/27/23 05/27/23 18:55 22:03 Temp 36.0 Pulse 93 75 Resp 18 18 B/P (MAP) 192/108 (136) 163/72 Pulse Ox 100 98 O2 Delivery Room Air Room Air Capillary Refill : Blood Pressure Mean: 136 Progress Note : Time: 21:48 Progress Note Patient seen and evaluated by me. Evaluation today includes physical exam, CBC, Chem-12, urinalysis, EKG. Pertinent physical exam findings well-developed well- nourished obese female in no acute distress. No focal neurologic deficits are noted on exam. She has equal strength and sensation throughout. No cranial nerve deficits. Heart is regular, lungs are clear. She is very hypertensive with a systolic of 212 on arrival. She is not tachycardic. She is not hypoxic. Differential diagnosis based on history and physical exam, hypertensive urgency versus emergency. Labs independently reviewed and interpreted by me. Her CBC shows a total white blood cell count of 8.7, mild anemia with a hemoglobin of 9.8 hematocrit of 30. Platelets are slightly low at 116. Her chemistry is unremarkable except for her chronic kidney disease with a BUN of 61, creatinine of 5.86. Her blood sugar is elevated at 222. Her urinalysis does reveal microscopic hematuria without any evidence of infection. EKG is unremarkable for any acute abnormality. Patient is treated in the emergency department for her hypertension with labetalol. She was initially given 10 mg IV so that I could see what type of response she had. Approximately 20 to 30 minutes later her blood pressure had not moved at all and her systolic remained about 200. I followed that up with 20 mg of labetalol and she came down nicely into the upper 150s to 160 range on her systolic blood pressure. At this time her headache is much improved. She has no further complaints. She would like to be [facility] to the [facility]. No clinical or objective findings to warrant further studies from the emergency department. Patient is currently encouraged to complete her dialysis session this week on Friday as scheduled. All questions are sought and answered. ECG Initial ECG Impression Date: May 27, 2023 Initial ECG Impression Time: 19:06 Initial ECG Rate: 89 Initial ECG Rhythm: Normal Sinus Initial ECG Intervals: Normal Initial ECG Impression: Normal Departure Impression Primary Impression: Hypertensive urgency Additional Impression: ESRD (end stage renal disease) on dialysis Disposition: HOME, SELF-CARE Condition: Improved Departure-Patient Inst. Decision time for Depature: 21:49 Referrals: ZAN SEGAL DO (PCP/Family) Primary Care Physician Patient Instructions: High Blood Pressure ED Add. Discharge Instructions: Use Extra strength Tylenol every 6 hours as needed for headache. Be sure and continue your daily medications as prescribed. If you develop a fever, especially with your headache - or cough, shortness of breath or any other emergent, concerns - please return to the Emergency Department for re-evaluation. Please try and finish your whole course of dialysis on Friday. Copy Copies To 1: ZAN SEGAL KATHRYN M MD May 27, 2023 20:09
[2023-05-27 20:11] LABS: BASOPHILS % (AUTO) 0 % (0-10)
[2023-05-27 20:12] LABS: EOSINOPHILS # (AUTO) 0.1 10^3/uL (0.0-0.3); EOSINOPHILS % (AUTO) 1 % (0-10); HEMATOCRIT 30 % (35-52); HEMOGLOBIN 9.8 g/dL (11.5-16.0); LYMPHOCYTES # (AUTO) 1.9 10^3/uL (1.0-4.0); LYMPHOCYTES % (AUTO) 22 % (12-44); MEAN CORPUSCULAR HEMOGLOBIN 33 pg (25-34); MEAN CORPUSCULAR HGB CONC 33 g/dL (32-36); MEAN CORPUSCULAR VOLUME 99 fL (80-99); MEAN PLATELET VOLUME 12.7 fL (9.0-12.2); MONOCYTES # (AUTO) 0.7 10^3/uL (0.0-1.0); MONOCYTES % (AUTO) 7 % (0-12); NEUTROPHILS % (AUTO) 69 % (42-75); PLATELET COUNT 116 10^3/uL (130-400); WHITE BLOOD COUNT 8.7 10^3/uL (4.3-11.0)
[2023-05-27] MEDS ORDERED: LABETALOL 5 mg/ml 4 ML SINGLE DOSE SYRINGE IV ONE ×2 (20:15→21:15)
[2023-05-27 20:16] LABS: SMEAR SCAN COMMENT YES
[2023-05-27 20:17] LABS: CALCIUM 9.4 MG/DL (8.5-10.1)
[2023-05-27 20:20] LABS: BILIRUBIN,TOTAL 0.4 MG/DL (0.1-1.0)
[2023-05-27 20:40] LABS: CREATININE SERUM 5.86 MG/DL (0.60-1.30); POTASSIUM 4.2 MMOL/L (3.6-5.0)
[2023-05-27 20:45] LABS: CLARITY,URINE CLEAR; COLOR,URINE YELLOW
[2023-05-27 20:46] LABS: BACTERIA,URINE TRACE /HPF; BILIRUBIN,URINE NEGATIVE (NEGATIVE); GLUCOSE, URINE (UA) TRACE (NEGATIVE); KETONES,URINE NEGATIVE (NEGATIVE); LEUKOCYTE ESTERASE ,URINE NEGATIVE (NEGATIVE); NITRITE,URINE NEGATIVE (NEGATIVE); PROTEIN,URINE 3+ (NEGATIVE); WBC,URINE 0-2 /HPF
[2023-05-27 22:03] VITALS: BP 163/72
== END 2023-05-27 22:03 | disposition home or self-care (01) ==
LOC: EDUNIT# 18:38 → ER 18:41
DX: I16.0 Hypertensive urgency (principal); I12.0 Hypertensive chronic kidney disease with stage 5 chronic kidney disease or end stage renal disease; E11.22 Type 2 diabetes mellitus with diabetic chronic kidney disease; N18.6 End stage renal disease; E11.40 Type 2 diabetes mellitus with diabetic neuropathy, unspecified; E11.319 Type 2 diabetes mellitus with unspecified diabetic retinopathy without macular edema; E66.9 Obesity, unspecified; Z99.2 Dependence on renal dialysis; Z79.4 Long term (current) use of insulin; Z79.899 Other long term (current) drug therapy; Z68.38 Body mass index [BMI] 38.0-38.9, adult
CPT/HCPCS: 36415; 80053; 81000; 85025; 93005

== ENCOUNTER → 2023-09-08 | Outpatient (CLI) | payer MEDICAID ==
[~2023-09-08] MED LIST changes: -INSU100I48 SC; +INSU100I64 SC
== END ==
LOC: CARD 08:17
PROVIDERS: ATTEND Internal Medicine Cardiovascular Disease
DX: I11.9 Hypertensive heart disease without heart failure (principal)
CPT/HCPCS: 93306

== ENCOUNTER → 2023-09-16 | Outpatient (CLI) | payer MEDICAID ==
[~2023-09-16] MED LIST changes: +CATHETER FLUSH 10 ML SYR IVP PRN; +REGADENOSON 0.4 MG/5 ML SYR IV ONE
[2023-09-16 09:37] VITALS: BP 211/108
--- NOTE | 2023-09-18 13:35 | STRESS TEST ---
DATE OF SERVICE: 09/16/2023 RESTING AND POST REGADENOSON TECHNETIUM-99M TETROFOSMIN SPECT CT IMAGING ORDERING PHYSICIAN: Venancio Farmer MD; BELÉN; ROSIBEL; DARLENEC; NORMAS PRIMARY PHYSICIAN: Dr. Garcia. CLINICAL DIAGNOSIS: Hypertensive heart disease. Baseline images were carried out after injection of 10.69 mCi of technetium-99m tetrofosmin. This was followed by 0.4 mg regadenoson and 30.9 mCi of technetium-99m tetrofosmin for stress imaging. The electrocardiogram showed sinus rhythm at baseline. It did not change significantly with the regadenoson infusion. The patient noted some shortness of breath, nausea, and abdominal cramping following regadenoson infusion, which resolved in a few minutes. Review of images at rest and following stress does not indicate any distinct perfusion defects consistent with significant myocardial ischemia or infarction. Gated images do not show any distinct regional wall motion abnormalities. Left ventricular ejection fraction is calculated to be 80%. CONCLUSIONS: 1. No evidence of significant myocardial ischemia or infarction on this study. 2. Normal regional wall motion. 3. Normal global left ventricular systolic function with a calculated ejection fraction of 80%. Job ID: [id number] DocumentID: [id number] Dictated Date: 09/18/2023 10:18:56 Manager Investment Date: 09/18/2023 13:34:00 Dictated By: VENANCIO FARMER MD; BELÉN; ROSIBEL; KELLI; NEENA
== END ==
LOC: CARD 08:15
PROVIDERS: ATTEND Internal Medicine Cardiovascular Disease
DX: I11.9 Hypertensive heart disease without heart failure (principal)
CPT/HCPCS: 78452; 93017